=== PATIENT | male | born 1935 | race Caucasian/White ===

== ENCOUNTER 2018-06-07 04:59 | Observation (INO) | payer OTHER, BC ==
[2018-06-07 05:36] LABS: Absolute Lymphocytes (CBC) 1.8 K/uL (0.7-4.9); Absolute Monocytes 0.7 K/uL (0.1-1.3); Absolute Neutrophil 3.3 K/uL (1.8-8.0); Basophils % 0.8 % (0-1.3); Eosinophils % 5.9 % (0-4.4); Hematocrit 50.6 % (39.6-49.0); Lymphocytes % 29.6 % (15.3-44.8); MCH 32.1 pg (27.0-35.0); MPV 8.1 fL (7.6-11.3); Monocytes % 10.7 % (3.3-12.3); RBC Red Blood Cell Count 5.38 M/uL (4.33-5.43)
[2018-06-07 05:39] LABS: Protime INR 1.05
[2018-06-07 05:51] LABS: ALT/SGPT 31 U/L (12-78); AST/SGOT 36 U/L (15-37); Albumin 3.8 g/dL (3.4-5.0); Alkaline Phosphatase 63 U/L (45-117); BUN Blood Urea Nitrogen 18 mg/dL (7-18); Bicarbonate 29 mmol/L (21-32); Bilirubin Total 0.8 mg/dL (0.2-1.0); Glucose Level 102 mg/dL (74-106); Magnesium 2.1 mg/dL (1.8-2.4); NT PRO-BNP 174 pg/mL (<450); Potassium 3.6 mmol/L (3.5-5.1); Sodium Level 142 mmol/L (136-145); Troponin (Emerg Dept Use Only) < 0.02 ng/mL (0.0-0.045)
[2018-06-07] MEDS ORDERED: MORPHINE 4 MG/ML SYR ONE (05:54)
[2018-06-07] MEDS ORDERED: ONDANSETRON 4 MG/2 ML VIAL ONE (05:54)
--- NOTE | 2018-06-07 07:02 | EDPHYS ---
Physician Documentation [facility] Name: Angelo Gonzalez Age: 83 yrs Sex: Male : 1935 Arrival Date: 06/07/2018 Time: 04:59 Bed 18 Private MD: NALLLEY CEDENO ED Physician Chinedu Villavicencio HPI: 06/07 05:08 This 83 yrs old Male presents to ER via Unassigned with complaints of Chest ps1 Pain. 05:08 The patient or guardian reports chest pain that is located primarily in the substernal ps1 area. Onset: just prior to arrival. The pain does not radiate. Associated signs and symptoms: The patient has no apparent associated signs or symptoms. The chest pain is described as a pressure. Hx of aortic aneurysm. Supposed to have CTA in morning. [place] is cards. Pain moderate. No remitting factors. . Historical: - Allergies: 05:32 PENICILLINS; jb4 - Home Meds: 05:32 [place] Thyroid 90 mg Oral tab 90 mg daily for Hypothyroidism [Active]; Bactrim DS Oral jb4 [Active]; curamin bcm 95 twice a day [Active]; Flomax 0.4 mg Oral cp24 1 cap once daily [Active]; Nexium 40 mg Oral cpDR 1 cap once daily for Gastroesophageal reflux [Active]; testosterone every 2 weeks every two weeks [Active]; Q10 daily [Active]; [place] Thyroid 15 mg Oral tab [Active]; bisoprolol-hydrochlorothiazide 2.5-6.25 mg oral tab 1 tab once daily [Active]; Tamslosin Hcl [Active]; cyclobenzaprine 10 mg Oral tab [Active]; turmeic 750 [Active]; red yeast rice 600 mg oral cap twice a day [Active]; - PMHx: 05:32 aortic aneurysm; Arthritis; BPH; Cancer; bladder; Hypertension; Hypothyroidism; jb4 - PSHx: 05:32 Tonsillectomy; Hernia repair; jb4 - Immunization history:: Adult Immunizations up to date, Flu vaccine is not up to date. - Social history:: Smoking status: Patient/guardian denies using tobacco, Patient uses alcohol, but reports only rare drinking. - Ebola Screening: : No symptoms or risks identified at this time. ROS: 05:08 Constitutional: Negative for fever, chills, and weight loss, Eyes: Negative for injury, ps1 pain, redness, and discharge, Respiratory: Negative for shortness of breath, cough, wheezing, and pleuritic chest pain, Abdomen/GI: Negative for abdominal pain, nausea, vomiting, diarrhea, and constipation, MS/Extremity: Negative for injury and deformity, Skin: Negative for injury, rash, and discoloration, Neuro: Negative for headache, weakness, numbness, tingling, and seizure. 05:08 Cardiovascular: Positive for chest pain. Exam: 05:08 Constitutional: This is a well developed, well nourished patient who is awake, alert, ps1 and in no acute distress. Head/Face: Normocephalic, atraumatic. Eyes: Pupils equal round and reactive to light, extra-ocular motions intact. Lids and lashes normal. Conjunctiva and sclera are non-icteric and not injected. Chest/axilla: Normal chest wall appearance and motion. Nontender with no deformity. No lesions are appreciated. Cardiovascular: Regular rate and rhythm. No gallops, murmurs, or rubs. Normal PMI, no JVD. No pulse deficits. Respiratory: Lungs have equal breath sounds bilaterally, clear to auscultation and percussion. No rales, rhonchi or wheezes noted. No increased work of breathing, no retractions or nasal flaring. Abdomen/GI: Soft, non-tender, with normal bowel sounds. No distension or tympany. No guarding or rebound. No evidence of tenderness throughout. Skin: Warm, dry with normal turgor. Normal color with no rashes, no lesions, and no evidence of cellulitis. MS/ Extremity: Pulses equal, no cyanosis. Neurovascular intact. Full, normal range of motion. Neuro: Awake and alert, GCS 15, oriented to person, place, time, and situation. Cranial nerves II-XII grossly intact. Sensory grossly intact. Vital Signs: 05:05 BP 159 / 81; Pulse 101; Resp 18; Temp 98.0; Pulse Ox 95% on R/A; Weight 77.11 kg; jb4 Height 5 ft. 6 in. (167.64 cm); Pain 5/10; 06:00 BP 140 / 85; Pulse 87; Resp 18; Pulse Ox 95% on R/A; jb4 06:36 BP 157 / 76; Pulse 92; Resp 16; Pulse Ox 98% on R/A; jb4 07:10 BP 144 / 84; Pulse 89; Resp 18; Pulse Ox 96% on R/A; hj 08:30 BP 145 / 66; Pulse 84; Resp 18; Pulse Ox 96% on R/A; hj 09:26 BP 137 / 98; Pulse 86; Resp 18; Pulse Ox 97% on R/A; hj 05:05 Body Mass Index 27.44 (77.11 kg, 167.64 cm) jb4 MDM: 05:11 Patient medically screened. ps1 07:02 Data reviewed: vital signs, nurses notes, lab test result(s), EKG, radiologic studies, ps1 and as a result, I will admit patient. 06/07 05:11 Order name: CBC with Diff; Complete Time: 05:45 ps1 06/07 05:11 Order name: Magnesium; Complete Time: 05:54 ps1 06/07 05:11 Order name: NT PRO-BNP; Complete Time: 05:54 ps1 06/07 05:11 Order name: PT-INR; Complete Time: 05:45 ps1 06/07 05:11 Order name: Troponin (emerg Dept Use Only); Complete Time: 05:54 ps1 06/07 05:11 Order name: CMP; Complete Time: 05:54 ps1 06/07 05:11 Order name: EKG; Complete Time: 05:11 ps1 06/07 05:11 Order name: Cardiac monitoring; Complete Time: 05:24 ps1 06/07 05:11 Order name: EKG - Nurse/Tech; Complete Time: 05:16 ps1 06/07 05:11 Order name: IV Saline Lock; Complete Time: 05:24 ps1 06/07 05:11 Order name: Labs collected and sent; Complete Time: 05:24 ps1 06/07 05:11 Order name: CT Aorta for Dissection ps1 06/07 05:11 Order name: O2 Per Protocol; Complete Time: 05:24 ps1 06/07 05:11 Order name: O2 Sat Monitoring; Complete Time: 05:20 ps1 EC:03 Rate is 97 beats/min. Rhythm is regular. QRS [place] is Normal. ND interval is normal. QRS ps1 interval is normal. QT interval is normal. No Q waves. No ST changes noted. Clinical impression: IVCD, LVH,repol. LAFB. Interpreted by me. Administered Medications: 05:58 Drug: Zofran 4 mg Route: IVP; Site: right forearm; jb4 06:37 Follow up: Response: No adverse reaction; Nausea is decreased jb4 06:01 Drug: morphine 4 mg Route: IVP; Site: right forearm; jb4 06:37 Follow up: Response: No adverse reaction; Pain is decreased jb4 Disposition: 06/07/18 07:01 Hospitalization ordered by Laurita Flores for Observation. Preliminary diagnosis is Other chest pain. - Bed requested for Telemetry/MedSurg (observation). - Status is Observation. hj - Condition is Stable. - Problem is new. - Symptoms have improved. UTI on Admission? No Signatures: Dispatcher [employer] EDMS Jomar Kam RN RN hj Eliceo Grajeda RN RN jb4 Chinedu Villavicencio MD MD ps1 Reyna Escalera Corrections: (The following items were deleted from the chart) 09:04 07:01 Hospitalization Ordered by Laurita Flores MD for Observation. Preliminary eb diagnosis is Other chest pain. Bed requested for Telemetry/MedSurg (observation). Status is Observation. Condition is Stable. Problem is new. Symptoms have improved. UTI on Admission? No. ps1 09:27 09:04 06/07/2018 07:01 Hospitalization Ordered by Laurita Flores MD for Observation. hj Preliminary diagnosis is Other chest pain. Bed requested for Telemetry/MedSurg (observation). Status is Observation. Condition is Stable. Problem is new. Symptoms have improved. UTI on Admission? No. eb
--- NOTE | 2018-06-07 07:02 | ER ---
Nurse's Notes [facility] Name: Angelo Gonzalez Age: 83 yrs Sex: Male : 1935 Arrival Date: 06/07/2018 Time: 04:59 Bed 18 Private MD: NALLELY CEDENO Diagnosis: Other chest pain Presentation: 06/07 05:05 Presenting complaint: Patient states: I am having chest pain in the middle of my chest jb4 that started around midnight. 05:05 Transition of care: patient was not received from another setting of care. Onset of jb4 symptoms was June 07, 2018. Risk Assessment: Do you want to hurt yourself or someone else? Patient reports no desire to harm self or others. Initial Sepsis Screen: Does the patient meet any 2 criteria? HR > 90 bpm. Yes Does the patient have a suspected source of infection? No. Patient's initial sepsis screen is negative. Care prior to arrival: None. 05:05 Method Of Arrival: Ambulatory jb4 05:05 Acuity: ARMIDA 3 jb4 Triage Assessment: 05:32 General: Appears in no apparent distress. uncomfortable, Behavior is calm, cooperative, jb4 appropriate for age. Pain: Complains of pain in xyphoid area Pain does not radiate. Pain currently is 5 out of 10 on a pain scale. Quality of pain is described as it just hurts. Pain began 4 hours ago. Is continuous. EENT: No signs and/or symptoms were reported regarding the EENT system. Neuro: Level of Consciousness is awake, alert, obeys commands, Oriented to person, place, time, situation. Cardiovascular: Reports chest pain, Heart tones S1 S2 present Patient's skin is warm and dry. Rhythm is sinus rhythm. Respiratory: Airway is patent Respiratory effort is even, unlabored, Respiratory pattern is regular, symmetrical, Breath sounds are clear bilaterally. GI: No signs and/or symptoms were reported involving the gastrointestinal system. : No signs and/or symptoms were reported regarding the genitourinary system. Derm: Skin is intact, Skin is pink, warm \T\ dry. Musculoskeletal: Circulation, motion, and sensation intact. Historical: - Allergies: 05:32 PENICILLINS; jb4 - Home Meds: 05:32 [place] Thyroid 90 mg Oral tab 90 mg daily for Hypothyroidism [Active]; Bactrim DS Oral jb4 [Active]; curamin bcm 95 twice a day [Active]; Flomax 0.4 mg Oral cp24 1 cap once daily [Active]; Nexium 40 mg Oral cpDR 1 cap once daily for Gastroesophageal reflux [Active]; testosterone every 2 weeks every two weeks [Active]; Q10 daily [Active]; [place] Thyroid 15 mg Oral tab [Active]; bisoprolol-hydrochlorothiazide 2.5-6.25 mg oral tab 1 tab once daily [Active]; Tamslosin Hcl [Active]; cyclobenzaprine 10 mg Oral tab [Active]; turmeic 750 [Active]; red yeast rice 600 mg oral cap twice a day [Active]; - PMHx: 05:32 aortic aneurysm; Arthritis; BPH; Cancer; bladder; Hypertension; Hypothyroidism; jb4 - PSHx: 05:32 Tonsillectomy; Hernia repair; jb4 - Immunization history:: Adult Immunizations up to date, Flu vaccine is not up to date. - Social history:: Smoking status: Patient/guardian denies using tobacco, Patient uses alcohol, but reports only rare drinking. - Ebola Screening: : No symptoms or risks identified at this time. Screenin:05 Abuse screen: Denies threats or abuse. Nutritional screening: No deficits noted. jb4 Tuberculosis screening: No symptoms or risk factors identified. Fall Risk None identified. Assessment: 05:05 General: see triage assessment. jb4 06:11 Reassessment: Patient appears in no apparent distress at this time. Patient and/or jb4 family updated on plan of care and expected duration. Pain level reassessed. Patient is alert, oriented x 3, equal unlabored respirations, skin warm/dry/pink. Pt being taken to CT via stretcher. Patient states feeling better. 06:36 Reassessment: Patient appears in no apparent distress at this time. Patient and/or jb4 family updated on plan of care and expected duration. Pain level reassessed. Patient is alert, oriented x 3, equal unlabored respirations, skin warm/dry/pink. Pt is back from CT, family is at the bedside. 07:12 General: Appears in no apparent distress. uncomfortable, Behavior is calm, cooperative, hj appropriate for age. Pain: Complains of pain in chest and xyphoid area Pain currently is 4 out of 10 on a pain scale. Neuro: Level of Consciousness is awake, alert, obeys commands, Oriented to person, place, time, situation, Appropriate for age. Cardiovascular: Capillary refill < 3 seconds Patient's skin is warm and dry. Respiratory: Airway is patent Respiratory effort is even, unlabored, Respiratory pattern is regular, symmetrical. GI: No signs and/or symptoms were reported involving the gastrointestinal system. : No signs and/or symptoms were reported regarding the genitourinary system. EENT: No signs and/or symptoms were reported regarding the EENT system. Derm: No signs and/or symptoms reported regarding the dermatologic system. Musculoskeletal: No signs and/or symptoms reported regarding the musculoskeletal system. 08:30 Reassessment: Patient and/or family updated on plan of care and expected duration. Pain hj level reassessed. Patient is alert, oriented x 3, equal unlabored respirations, skin warm/dry/pink. awaiting room placemnt;. 09:25 Reassessment: Patient and/or family updated on plan of care and expected duration. Pain hj level reassessed. Patient is alert, oriented x 3, equal unlabored respirations, skin warm/dry/pink. room assigned to [facility]; report called to Antoinette WEEMS;. Vital Signs: 05:05 BP 159 / 81; Pulse 101; Resp 18; Temp 98.0; Pulse Ox 95% on R/A; Weight 77.11 kg; jb4 Height 5 ft. 6 in. (167.64 cm); Pain 5/10; 06:00 BP 140 / 85; Pulse 87; Resp 18; Pulse Ox 95% on R/A; jb4 06:36 BP 157 / 76; Pulse 92; Resp 16; Pulse Ox 98% on R/A; jb4 07:10 BP 144 / 84; Pulse 89; Resp 18; Pulse Ox 96% on R/A; hj 08:30 BP 145 / 66; Pulse 84; Resp 18; Pulse Ox 96% on R/A; hj 09:26 BP 137 / 98; Pulse 86; Resp 18; Pulse Ox 97% on R/A; hj 05:05 Body Mass Index 27.44 (77.11 kg, 167.64 cm) jb4 ED Course: 04:59 Patient arrived in ED. am2 05:02 NALLELY CEDENO is Private Physician. am2 05:05 Arm band placed on right wrist. jb4 05:05 Patient has correct armband on for positive identification. Placed in gown. Bed in low jb4 position. Call light in reach. Side rails up X 1. hotel receptionist on. Pulse ox on. NIBP on. 05:08 Chinedu Villavicencio MD is Attending Physician. ps1 05:10 Initial lab(s) drawn, by nc, sent to lab. Inserted saline lock: 20 gauge in right jb4 antecubital area, using aseptic technique. Blood collected. Patient maintains SpO2 saturation greater than 95% on room air. 05:16 EKG done, by ED staff, reviewed by Chinedu Villavicencio MD. bb 05:20 Eliceo Grajeda, RN is Primary Nurse. jb4 05:27 Triage completed. jb4 05:30 Inserted saline lock: 20 gauge in right forearm, using aseptic technique. jb4 05:40 Inserted saline lock: 20 gauge in right forearm, using aseptic technique. jb4 06:05 Inserted saline lock: 20 gauge in left antecubital area, using aseptic technique. jb4 06:40 CT Aorta for Dissection In Process Unspecified. EDMS 06:40 CT completed. Patient tolerated procedure well. Patient moved to CT via stretcher. Patient moved back from CT. 07:01 Laurita Flores MD is Hospitalizing Provider. ps1 07:09 Report received from Eliceo Grajeda RN. hj 09:26 No provider procedures requiring assistance completed. Patient admitted, IV remains in place. intact. Administered Medications: 05:58 Drug: Zofran 4 mg Route: IVP; Site: right forearm; jb4 06:37 Follow up: Response: No adverse reaction; Nausea is decreased jb4 06:01 Drug: morphine 4 mg Route: IVP; Site: right forearm; jb4 06:37 Follow up: Response: No adverse reaction; Pain is decreased jb4 Outcome: 07:01 Decision to Hospitalize by Provider. ps1 09:27 Admitted to Tele accompanied by tech, family with patient, via wheelchair, room 413, with chart, Report called to DANK Curry 09:27 Condition: stable 09:27 Instructed on the need for admit, Demonstrated understanding of instructions. 09:27 Patient left the ED. Signatures: Dispatcher [employer] EDMN Luis De Souza Laly Staples RN RN Jomar Kam RN RN hj Bryson, James, RN RN jb4 Karo Guidry am2 Chinedu Villavicencio MD MD ps1
--- NOTE | 2018-06-07 07:51 | EKG ---
Test Date: 2018-06-07 Test Time: 05:03:04 Stencil Machine Operator: PANTERA MEASUREMENT RESULTS: Intervals: Rate: 97 NV: 176 QRSD: 116 QT: 356 QTc: 452 [place]: P: 77 NV: 176 QRS: -65 T: 88 INTERPRETIVE STATEMENTS: Normal sinus rhythm Left anterior fascicular block Left ventricular hypertrophy with QRS widening and repolarization abnormality Abnormal ECG Compared to ECG 10/07/2016 01:11:37 no significant change from previous ECG Electronically Signed On 06-07-18 07:50:49 CDT by Javi Marin
[2018-06-07] MEDS ORDERED: ONDANSETRON 4 MG/2 ML VIAL IV PRN (08:18)
--- NOTE | 2018-06-07 08:25 | RAD REPORT ---
EXAM DESCRIPTION: CT - Angio Aorta For Dissection - 06/07/2018 6:59 am CLINICAL HISTORY: Chest pain radiating to the back. hx of aortic aneurysm and chest pain COMPARISON: Angio Aorta For Dissection dated 10/07/2016; Angio Aorta For Dissection dated 12/06/2015 ; CTANGIO AORTA FOR DISSECTION dated 11/19/2011 TECHNIQUE: CT angiography of the aorta was performed with MIPs. All CT scans are performed using dose optimization technique as appropriate and may include automated exposure control or mA/KV adjustment according to patient size. FINDINGS: Large left thyroid lobe nodule is present measuring up to 4.0 cm. A left aortic arch is present with normal branching pattern of the great vessels.Aneurysmal dilatatio n of the ascending aorta measuring 4.5 cm is again noted, unchanged. No dissection is seen. No penetr ating ulcer or periaortic abnormality. The celiac axis, SMA, DHEERAJ and renal arteries are widely patent . No evidence of pulmonary embolism. The lungs are clear. Small hiatal hernia. The liver demonstrates no focal mass or biliary dilatation.Several liver cysts are present.The spleen , pancreas, adrenal glands and kidneys are within normal limits for arterial phase imaging. No bowel obstruction, free fluid or abscess.Sigmoid diverticulosis coli without diverticulitis.No pat hologic enlarged lymphadenopathy identified.Small fat containing inguinal hernias bilaterally. No fracture or worrisome bone lesion seen. IMPRESSION: 4.5 cm ascending aneurysm the thoracic aorta is stable.No acute aortic finding or other acute abnormality detected.
[2018-06-07] MEDS ORDERED: NA CHLORIDE 0.9% 1,000 ML IV SCH (09:00)
[2018-06-07 10:11] VITALS: BMI 27.4
[2018-06-07] MEDS ORDERED: INFLUENZA VACCINE (for 3y+) 0.5 ML DOSE IMVAC ONE (11:00)
[2018-06-07 12:12] LABS: Urine Appearance CLEAR; Urine Bilirubin NEGATIVE (NEG); Urine Blood NEGATIVE (NEG); Urine Color YELLOW; Urine Glucose NEGATIVE (NEG); Urine Protein NEGATIVE (NEG); Urine Specific Gravity >=1.030 (1.005-1.030); Urine pH 6.5 (5.0-7.0)
[2018-06-07 12:18] LABS: Urine Microscopic Reflex NO UMIC
--- NOTE | 2018-06-07 12:20 | ECHO ---
HEIGHT: 5 ft 6 in WEIGHT: 170 lb 0 oz DATE OF STUDY: 06/07/[address]: Laurita Flores MD 2-DIMENSIONAL: YES M.MODE: YES DOPPLER: YES COLOR FLOW: YES TDS: PORTABLE: DEFINITY: BUBBLE STUDY: DIAGNOSIS: CHEST PAIN CARDIAC HISTORY: CATHERIZATION: NO SURGERY: NO PROSTHETIC VALVE: NO PACEMAKER: NO MEASUREMENTS (cm) DIASTOLIC (NORMALS) SYSTOLIC (NORMALS) IVSd 0.9 (0.6-1.2) LA Diam 3.5 (1.9-4.0) LVEF 58% LVIDd 4.2 (3.5-5.7) LVIDs 3.0 (2.0-3.5) %FS 30% LVPWd 1.0 (0.6-1.2) Ao Diam 3.1 (2.0-3.7) 2 DIMENSIONAL ASSESSMENT: RIGHT ATRIUM: NORMAL LEFT ATRIUM: NORMAL RIGHT VENTRICLE: NORMAL LEFT VENTRICLE: NORMAL TRICUSPID VALVE: NORMAL MITRAL VALVE: NORMAL PULMONIC VALVE: NORMAL AORTIC VALVE: NORMAL PERICARDIAL EFFUSION: NONE AORTIC ROOT: NORMAL LEFT VENTRICULAR WALL MOTION: NORMAL DOPPLER/COLOR FLOW: MILD AORTIC, MITRAL AND TRICUSPID REGURGITATION. NORMAL RIGHT VENTRICULAR SYSTOLIC PRESSURE. COMMENTS: NORMAL 2-DIMENSIONAL ECHOCARDIOGRAM. MILD MITRAL, AORTIC AND TRICUSPID REGURGITATION. TECHNOLOGIST: LOIS GLORIA
[2018-06-07] MEDS ORDERED: PANTOPRAZOLE 40MG TABLET PO ONE (12:46)
[2018-06-07] MEDS ORDERED: SUCRALFATE 1GM/10ML UCUP FT SCH (13:00)
[2018-06-07 14:29] VITALS: BP 134/73; TEMP 98.3
--- NOTE | 2018-06-07 17:45 | P.SSS ---
Patient History Date of Service: 06/07/18 Primary Care Provider: Dr Davila Reason for admission: Chest pain History of Present Illness: 83 y/o M with extensive pmhx presented to the ED with Chest pain that started 3 AM last night. Pain was in the middle of left chest pain. Pain is Dull in nature and rated to be 8/10. Denies having SOB, N,V and chills at this time. No other complains to offer at this time. Has scheduled a tooth extraction surgery malissa AM with Dr Barton. In the ER EKG with sinus rhythm and Troponin x 2 negative. ACS r.o. Admitted for ECHO and cards consult. Allergies Penicillins Allergy (Mild, Verified 06/07/18 09:48) Hives/Rash Home Medications: Bisoprolol/Hctz [[place] 2.5/6.25*] 1 tab PO DAILY WITH BREAKFAST 06/03/14 Thyroid,Pork [[place] Thyroid] 15 mg PO DAILY 06/03/14 Tamsulosin HCl [Flomax] 0.4 mg PO BEDTIME 12/06/15 Selenium 100 mcg PO DAILYPRN PRN 02/03/17 Testosterone Cypionate [Depo-Testosterone] 100 mg IM ONCE 02/03/17 Turmeric/Turmeric Ext/Pepr Ext [Turmeric Complex 500 mg Cap] 1 each PO DAILY Cyclobenzaprine [Flexeril*] 1 tab PO BEDTIME 06/07/18 Esomeprazole Mag Trihydrate [Nexium] 1 tab PO DAILY 06/07/18 Thyroid Tab [[place] Thyroid*] 90 mg PO DAILY 06/07/18 - Past Medical/Surgical History Has patient received pneumonia vaccine in the past: Yes Diabetic: No -: aortic aneurysm -: tinnitus -: HTN -: BPH -: hypothyroidsm -: bladder CA -: arthritis -: hemmrhoidectomy -: bladder cancer tumor removal -: sabra cataract sx -: tonisllectomy - Family History Family History: Reviewed- Non-Contributory - Family History Father -: Heart disease, Hypertension Notes: thyroid problems Mother -: Heart disease, Hypertension Brother -: Heart disease, Hypertension Sister -: Heart disease, Hypertension - Social History Smoking Status: Former smoker Alcohol use: Yes CD- Drugs: No Caffeine use: Yes Place of Residence: Home Review of Systems 10-point ROS is otherwise unremarkable Physical Examination - Vital Signs Temperature: 98.3 F Blood Pressure: 134/73 Pulse: 79 Respirations: 18 Pulse Ox (%): 95 - Physical Exam General: Alert, In no apparent distress HEENT: Atraumatic, PERRLA, Mucous membr. moist/pink, EOMI, Sclerae nonicteric Neck: Supple, 2+ carotid pulse no bruit, No LAD, Without JVD or thyroid abnormality Respiratory: Clear to auscultation bilaterally, Normal air movement Cardiovascular: Regular rate/rhythm, Normal S1 S2 Gastrointestinal: Normal bowel sounds, No tenderness Musculoskeletal: No tenderness Integumentary: No rashes Neurological: Normal gait, Normal speech, Normal strength at 5/5 x4 extr, Normal tone, Normal affect Lymphatics: No axilla or inguinal lymphadenopathy - Studies Laboratory Data (last 24 hrs) 06/07/18 05:10: PT 12.4, INR 1.05 06/07/18 05:10: WBC 6.2, Hgb 17.3, Hct 50.6 H, Plt Count 182 06/07/18 05:10: Sodium 142, Potassium 3.6, BUN 18, Creatinine 1.40 H, Glucose 102, Magnesium 2.1, Total Bilirubin 0.8, AST 36, ALT 31, Alkaline Phosphatase 63 - Diagnosis (Problem(s)) (1) Chest pain, rule out acute myocardial infarction Current Visit: Yes Status: Acute Plan: Atypical Chest pain, Most likely 2.2 to Anxiety vs GERD -ECHO negative for acute abnormality -Cardiology consulted. -No Further Workup needed -Continue all home medication -Discharge Now -Chest pain resolved (2) HTN (hypertension) Current Visit: Yes Status: Chronic Plan: Stable Qualifiers: Hypertension type: essential hypertension Qualified Code(s): I10 - Essential (primary) hypertension (3) Hypothyroidism Current Visit: Yes Status: Chronic Plan: Stable Qualifiers: Hypothyroidism type: acquired Qualified Code(s): E03.9 - Hypothyroidism, unspecified (4) Aortic aneurysm Current Visit: Yes Status: Chronic Plan: Stable Qualifiers: Aortic location: unspecified Presence of rupture: without rupture Qualified Code(s): I71.9 - Aortic aneurysm of unspecified site, without rupture (5) Arthritis Current Visit: Yes Status: Chronic - Disposition Disposition: ROUTINE DISCHARGE Condition: GOOD Diet: Regular Activity: Ad rina
--- NOTE | 2018-06-07 17:49 | CON ---
Brief History: Mr. Gonzalez had a heart catheterization years ago. It showed normal coronary arteri es, mild dilation of the ascending aorta. Ever since then, he has gotten serial stress tests and ser ial CT scans. His most recent CT scan was yesterday. The ascending aorta size is 4.5 mm, no evidenc e of dissection. It is no different than it has been and is not likely to be the cause of his pain. His stress test was on June 01, 2018, it was a nuclear stress test, he had normal myocardial perf usion, and normal ejection fraction. He had an echocardiogram done today that likewise shows no sign ificant abnormality. His troponins are normal. His EKG is unchanged from all his previous EKGs, whi ch shows borderline voltage for LVH, with QRS widening, nonspecific repolarization abnormality. The pain started at 3 a.m., it has been constant, it is not waxing and waning and with all of that, there is no EKG change, and no abnormality of troponin. 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 He has hypothyroidism. Medications: As an outpatient, he uses [place] Thyroid, bisoprolol, hydrochlorothiazide, Flomax, test osterone, Selenium, turmeric, cyclobenzaprine, and Nexium. Physical Examination: Vital Signs: He is 5 feet 6 inches, 170 pounds. Blood pressure 142/76, pulse 88, temperature 98, O2 saturation 97% on room air. HEENT: Normal. Does not appear to be in any distress. Lungs: Clear. Cardiac: Within normal limits. No friction rub. Abdomen: Soft. Extremities: Normal. Ekg: LVH, QRS widening, not a left bundle. Impression: The patient is probably having symptoms of gastroesophageal reflux disease. Recently, prabhjot oliveros has taken some Flexeril and may not have been taken his Nexium recently, so I am going to ask us no t to repeat a stress test. If his enzymes become abnormal, we will do a heart catheterization. If t hey stay normal, we will just rely on the stress test from 5 days ago. Mr. Gonzalez probably is not having an acute coronary syndrome or any symptoms from his aorta. Those 2 problems seem to be stable . KWABENA/LEANN Voice ID: [id number] Report ID: [id number]
[2018-06-07 20:07] VITALS: O2SAT 96
== END 2018-06-07 17:29 | disposition home or self-care (01) ==
LOC: ER 04:59 → ERHOLD 07:48 → 4TH 09:16
PROVIDERS: ADMIT Family Medicine; ATTEND Family Medicine
DX: R07.89 Other chest pain (principal); I10 Essential (primary) hypertension; N40.0 Benign prostatic hyperplasia without lower urinary tract symptoms; E03.9 Hypothyroidism, unspecified; I71.9 Aortic aneurysm of unspecified site, without rupture; M19.90 Unspecified osteoarthritis, unspecified site; Z85.51 Personal history of malignant neoplasm of bladder; Z87.891 Personal history of nicotine dependence; Z88.0 Allergy status to penicillin; Z23 Encounter for immunization
CPT/HCPCS: 36415; 71275; 74175; 80053; 81003; 83735; 83880; 84484 ×3; 85025; 85610; 87086; 87088; 93005; 93306; 96374; 96375; 99285; G0008; G0378 ×2; J2405; J7030; Q2035; Q9967

== ENCOUNTER 2018-07-30 15:18 | Emergency (ER) | payer OTHER, BC ==
--- NOTE | 2018-07-30 16:36 | RAD REPORT ---
EXAM DESCRIPTION: CT - Head Brain Wo Cont - 07/30/2018 4:18 pm CLINICAL HISTORY: Facial swelling, hypertension, headache COMPARISON: November 2015 CT head TECHNIQUE: Axial 5 mm thick images of the head were obtained without IV contrast. All CT scans are performed using dose optimization technique as appropriate and may include automated exposure control or mA/KV adjustment according to patient size. FINDINGS: No intracranial hemorrhage, mass, edema or shift of mid-line structures. No acute infarcti on changes seen. Moderate atrophy and chronic ischemic changes are present similar to the comparison. Ventricles are in proportion. Arterial and physiologic calcifications are present. Mastoid air cells and visualized portions of the paranasal sinuses are clear. No acute bony findings. IMPRESSION: Moderate atrophy and chronic ischemic change similar to comparison. No acute finding.
--- NOTE | 2018-07-30 16:39 | RAD REPORT ---
EXAM DESCRIPTION: CT - Thorax Wo Con - 07/30/2018 4:18 pm CLINICAL HISTORY: Cough, shortness of breath COMPARISON: CT chest August 2015 TECHNIQUE: Axial 5 mm thick images of the chest were obtained without IV contrast. All CT scans are performed using dose optimization technique as appropriate and may include automated exposure control or mA/KV adjustment according to patient size. FINDINGS: No mass or consolidation. Fibrotic lung changes are present. Pattern is not substantially different from the comparison study. No pleural thickening or pleural effusion. No pneumothorax. No abnormal mediastinal or hilar masses or lymphadenopathy seen. No gross aortic or pulmonary artery finding suspected. No endobronchial lesions seen. No pericardial thickening or effusion. No chest wall mass or abnormal axillary lymphadenopathy. Small hiatal hernia is present. IMPRESSION: Fibrotic lung changes are present. No acute chest finding. Chest findings are similar to 2016.
--- NOTE | 2018-07-30 16:48 | ER ---
Nurse's Notes [facility] Name: Angelo Gonzalez Age: 83 yrs Sex: Male : 1935 Arrival Date: 07/30/2018 Time: 15:19 Bed 27 Private MD: NALLELY CEDENO Diagnosis: Bronchitis, not specified as acute or chronic Presentation: 07/30 15:39 Presenting complaint: Patient states: PATIENT STATES: HE HAVE BRONCHITIS AND IS ALREADY rv ON ANTIBIOTICS FOR TEN DAYS. DOES NOT FEEL BETTER AND TODAY BLOOD PRESSURE IS FLUCTUATING. Transition of care: patient was not received from another setting of care. Onset of symptoms was July 30, 2018 at 08:00. Risk Assessment: Do you want to hurt yourself or someone else? Patient reports no desire to harm self or others. Initial Sepsis Screen: Does the patient meet any 2 criteria? No. Patient's initial sepsis screen is negative. Does the patient have a suspected source of infection? No. Patient's initial sepsis screen is negative. Care prior to arrival: None. 15:39 Method Of Arrival: Ambulatory rv 15:39 Acuity: ARMIDA 3 rv Historical: - Allergies: 15:44 PENICILLINS; rv - Home Meds: 15:44 [place] Thyroid 90 mg Oral tab 90 mg daily for Hypothyroidism [Active]; [place] Thyroid rv 15 mg Oral tab [Active]; Bactrim DS Oral [Active]; bisoprolol-hydrochlorothiazide 2.5-6.25 mg Oral tab 1 tab once daily [Active]; curamin bcm 95 twice a day [Active]; cyclobenzaprine 10 mg Oral tab [Active]; Flomax 0.4 mg Oral cp24 1 cap once daily [Active]; Nexium 40 mg Oral cpDR 1 cap once daily for Gastroesophageal reflux [Active]; Q10 daily [Active]; red yeast rice 600 mg Oral cap twice a day [Active]; Tamslosin Hcl [Active]; testosterone every 2 weeks every two weeks [Active]; turmeic 750 [Active]; levofloxacin 500 mg Oral tab [Active]; benzonatate oral oral [Active]; - PMHx: 15:44 aortic aneurysm; Arthritis; BPH; Cancer; bladder; Hypertension; Hypothyroidism; rv - PSHx: 15:44 None; rv - Immunization history:: Adult Immunizations up to date, Flu vaccine is up to date. - Social history:: Smoking status: Patient/guardian denies using tobacco. - Ebola Screening: : Patient negative for fever greater than or equal to 101.5 degrees Fahrenheit, and additional compatible Ebola Virus Disease symptoms Patient denies exposure to infectious person Patient denies travel to an Ebola-affected area in the 21 days before illness onset. Screenin:45 Abuse screen: Denies threats or abuse. Denies injuries from another. Nutritional rv screening: No deficits noted. Tuberculosis screening: No symptoms or risk factors identified. Fall Risk None identified. Assessment: 15:45 General: Appears in no apparent distress. comfortable, Behavior is calm, cooperative. rv Pain: Denies pain. Neuro: Level of Consciousness is awake, alert, obeys commands, Oriented to person, place, time, situation. Cardiovascular: Capillary refill < 3 seconds. Respiratory: Airway is patent. GI: No signs and/or symptoms were reported involving the gastrointestinal system. : No signs and/or symptoms were reported regarding the genitourinary system. EENT: No signs and/or symptoms were reported regarding the EENT system. Derm: Skin is intact. Musculoskeletal: No signs and/or symptoms reported regarding the musculoskeletal system. Vital Signs: 15:44 BP 162 / 93; Pulse 91; Resp 17; Temp 97.9; Pulse Ox 98% on R/A; Weight 77.11 kg (R); rv 17:14 BP 144 / 83; Pulse 73; Resp 17; Temp 97.1(O); Pulse Ox 98% on R/A; Pain 3/10; ed1 ED Course: 15:19 Patient arrived in ED. as 15:19 NALLELY CEDENO is Private Physician. as 15:39 Autumn Goodman [facility]-C [facility]. snw 15:39 Julio Cesar Sullivan MD is Attending Physician. snw 15:42 Triage completed. rv 15:46 Arm band placed on right wrist. rv 15:46 Patient has correct armband on for positive identification. Bed in low position. Call rv light in reach. Side rails up X 1. Adult w/ patient. Pulse ox on. NIBP on. 16:10 CT Chest Wo Con Sent. rv 16:10 CT Head Brain wo Cont Sent. rv 16:19 CT Head Brain wo Cont In Process Unspecified. EDMS 16:19 CT Chest Wo Con In Process Unspecified. EDMS 16:47 NALLELY CEDENO is Referral Physician. snw 17:13 No provider procedures requiring assistance completed. Patient did not have IV access ed1 during this emergency room visit. Administered Medications: 17:13 Drug: Tylenol #3 (300 mg-30 mg) 1 tablet Route: PO; ed1 17:13 Follow up: Response: Medication administered at discharge. ed1 Outcome: 16:47 Discharge ordered by MD. snw 17:13 Discharged to home ambulatory, with family. ed1 17:13 Condition: good 17:13 Discharge instructions given to patient, family, Instructed on discharge instructions, follow up and referral plans. medication usage, Demonstrated understanding of instructions, follow-up care, medications, Prescriptions given X 2. 17:14 Patient left the ED. ed1 Signatures: Dispatcher [employer] EDLA Autumn Goodman, FLEXO PRESS OPERATOR-C FLEXO PRESS OPERATOR-Lisa Orourke Erika, SEAFOOD TECHNOLOGY SPECIALIST SEAFOOD TECHNOLOGY SPECIALIST ed1 Geoff Howell, RN RN rv
--- NOTE | 2018-07-30 16:48 | EDPHYS ---
Physician Documentation [facility] Name: Angelo Gonzalez Age: 83 yrs Sex: Male : 1935 Arrival Date: 07/30/2018 Time: 15:19 Bed 27 Private MD: NALLELY CEDENO ED Physician Julio Cesar Sullivan HPI: 07/30 16:04 This 83 yrs old Male presents to ER via Ambulatory with complaints of High snw Blood Pressure. 16:04 The patient has elevated blood pressure and discovered this at home. Onset: The snw symptoms/episode began/occurred suddenly. Modifying factors: The symptoms are aggravated by cough, dx with Bronchitis. Has been taking Levaquin and Tessalon Perles. Severity of symptoms: At its worst the blood pressure was moderate. It is unknown whether or not the patient has had similar symptoms in the past. The patient has been recently seen by a physician: The patient has been recently seen at an urgent care, for continued cough with bronchitis. Historical: - Allergies: 15:44 PENICILLINS; rv - Home Meds: 15:44 [place] Thyroid 90 mg Oral tab 90 mg daily for Hypothyroidism [Active]; [place] Thyroid rv 15 mg Oral tab [Active]; Bactrim DS Oral [Active]; bisoprolol-hydrochlorothiazide 2.5-6.25 mg Oral tab 1 tab once daily [Active]; curamin bcm 95 twice a day [Active]; cyclobenzaprine 10 mg Oral tab [Active]; Flomax 0.4 mg Oral cp24 1 cap once daily [Active]; Nexium 40 mg Oral cpDR 1 cap once daily for Gastroesophageal reflux [Active]; Q10 daily [Active]; red yeast rice 600 mg Oral cap twice a day [Active]; Tamslosin Hcl [Active]; testosterone every 2 weeks every two weeks [Active]; turmeic 750 [Active]; levofloxacin 500 mg Oral tab [Active]; benzonatate oral oral [Active]; - PMHx: 15:44 aortic aneurysm; Arthritis; BPH; Cancer; bladder; Hypertension; Hypothyroidism; rv - PSHx: 15:44 None; rv - Immunization history:: Adult Immunizations up to date, Flu vaccine is up to date. - Social history:: Smoking status: Patient/guardian denies using tobacco. - Ebola Screening: : Patient negative for fever greater than or equal to 101.5 degrees Fahrenheit, and additional compatible Ebola Virus Disease symptoms Patient denies exposure to infectious person Patient denies travel to an Ebola-affected area in the 21 days before illness onset. ROS: 16:03 Constitutional: Negative for fever, chills, and weight loss, Eyes: Negative for injury, snw pain, redness, and discharge, ENT: Negative for injury, pain, and discharge, Neck: Negative for injury, pain, and swelling, Cardiovascular: Negative for chest pain, palpitations, and edema. 16:03 Abdomen/GI: Negative for abdominal pain, nausea, vomiting, diarrhea, and constipation, Back: Negative for injury and pain, : Negative for injury, bleeding, discharge, and swelling, MS/Extremity: Negative for injury and deformity, Neuro: Negative for headache, weakness, numbness, tingling, and seizure. 16:03 Respiratory: Positive for cough, with no reported sputum. 16:03 Skin: Positive for erythema, of the face. Exam: 16:03 Constitutional: The patient appears alert, awake, uncomfortable, facial erythema snw 16:52 Head/Face: Normocephalic, atraumatic. Eyes: Pupils equal round and reactive to light, snw extra-ocular motions intact. Lids and lashes normal. Conjunctiva and sclera are non-icteric and not injected. Cornea within normal limits. Periorbital areas with no swelling, redness, or edema. ENT: Nares patent. No nasal discharge, no septal abnormalities noted. Tympanic membranes are normal and external auditory canals are clear. Oropharynx with no redness, swelling, or masses, exudates, or evidence of obstruction, uvula midline. Mucous membranes moist. Neck: Trachea midline, no thyromegaly or masses palpated, and no cervical lymphadenopathy. Supple, full range of motion without nuchal rigidity, or vertebral point tenderness. No Meningismus. Chest/axilla: Normal chest wall appearance and motion. Nontender with no deformity. No lesions are appreciated. Cardiovascular: Regular rate and rhythm with a normal S1 and S2. No gallops, murmurs, or rubs. Normal PMI, no JVD. No pulse deficits. Abdomen/GI: Soft, non-tender, with normal bowel sounds. No distension or tympany. No guarding or rebound. No evidence of tenderness throughout. Back: No spinal tenderness. No costovertebral tenderness. Full range of motion. Skin: Warm, dry with normal turgor. Normal color with no rashes, no lesions, and no evidence of cellulitis. MS/ Extremity: Pulses equal, no cyanosis. Neurovascular intact. Full, normal range of motion. Neuro: Awake and alert, GCS 15, oriented to person, place, time, and situation. Cranial nerves II-XII grossly intact. Motor strength 5/5 in all extremities. Sensory grossly intact. Cerebellar exam normal. Normal gait. 16:52 Respiratory: the patient does not display signs of respiratory distress, Respirations: normal, Breath sounds: + upper airway congestion. harsh cough. Vital Signs: 15:44 BP 162 / 93; Pulse 91; Resp 17; Temp 97.9; Pulse Ox 98% on R/A; Weight 77.11 kg (R); rv 17:14 BP 144 / 83; Pulse 73; Resp 17; Temp 97.1(O); Pulse Ox 98% on R/A; Pain 3/10; ed1 MDM: 15:43 Patient medically screened. [facility] 16:49 Data reviewed: vital signs, nurses notes. Data interpreted: Pulse oximetry: on room air snw is 98 %. Interpretation: normal. Counseling: I had a detailed discussion with the patient and/or guardian regarding: the historical points, exam findings, and any diagnostic results supporting the discharge/admit diagnosis, the presence of at least one elevated blood pressure reading (>120/80) during this emergency department visit, radiology results, the need for outpatient follow up, to return to the emergency department if symptoms worsen or persist or if there are any questions or concerns that arise at home. Special discussion: I have referred the patient to see his PCP for further evaluation of high blood pressure. Based on the history and exam findings, there is no indication for further emergent testing or inpatient evaluation. I discussed with the patient/guardian the need to see the primary care provider for further evaluation of the symptoms. 07/30 15:55 Order name: CT Head Brain wo Cont; Complete Time: 16:45 snw 07/30 15:55 Order name: CT Chest Wo Con; Complete Time: 16:45 snw 07/30 15:55 Order name: EKG; Complete Time: 15:55 snw 07/30 15:55 Order name: EKG - Nurse/Tech; Complete Time: 16:09 snw Administered Medications: 17:13 Drug: Tylenol #3 (300 mg-30 mg) 1 tablet Route: PO; ed1 17:13 Follow up: Response: Medication administered at discharge. ed1 Disposition: 07/31 06:39 Co-signature as Attending Physician, Julio Cesar Sullivan MD I agree with the assessment and wyatt plan of care. Disposition: 07/30/18 16:47 Discharged to Home. Impression: Bronchitis, not specified as acute or chronic. - Condition is Stable. - Discharge Instructions: Acute Bronchitis, Adult, Fever, Adult, Hypertension, How to Use an Inhaler, Cool Mist Vaporizer. - Prescriptions for Albuterol Sulfate 90 mcg/actuation Inhalation - inhale 1-2 puff by INHALATION route every 6 hours; 1 Inhaler. Tylenol- Codeine #3 300-30 mg Oral Tablet - take 1 tablet by ORAL route every 6 hours As needed; 16 tablet. - Medication Reconciliation Form, Thank You Letter, Antibiotic Education, Prescription Opioid Use form. - Follow up: NALLELY CEDENO; When: as scheduled; Reason: Recheck today's complaints, Continuance of care, Re-evaluation by your physician. Follow up: Emergency Department; When: As needed; Reason: Worsening of condition. Signatures: Dispatcher [employer] EDMS Julio Cesar Sullivan MD MD cha Therrien, Shelly, WIRELESS ENGINEER-C WIRELESS ENGINEER-Casperw Meghann Hi, COLLISION ESTIMATOR COLLISION ESTIMATOR ed1 Geoff Howell, RN RN rv Corrections: (The following items were deleted from the chart) 07/30 17:14 16:47 07/30/2018 16:47 Discharged to Home. Impression: Bronchitis, not specified as ed1 acute or chronic. Condition is Stable. Forms are Medication Reconciliation Form, Thank You Letter, Antibiotic Education, Prescription Opioid Use. Follow up: NALLELY CEDENO; When: as scheduled; Reason: Recheck today's complaints, Continuance of care, Re-evaluation by your physician. Follow up: Emergency Department; When: As needed; Reason: Worsening of condition. snw
[2018-07-30] MEDS ORDERED: CODEINE 30MG/APAP 300MG TAB ONE (17:18)
[2018-07-30 18:55] VITALS: O2SAT 98
[2018-07-30 18:56] VITALS: BP 144/83; TEMP 97.1
--- NOTE | 2018-07-31 07:12 | EKG ---
Test Date: 2018-07-30 Test Time: 16:02:46 Director [place]: MEASUREMENT RESULTS: Intervals: Rate: 90 MI: 182 QRSD: 124 QT: 364 QTc: 445 [place]: P: 63 MI: 182 QRS: -66 T: 81 INTERPRETIVE STATEMENTS: Normal sinus rhythm Left anterior fascicular block Left ventricular hypertrophy with QRS widening and repolarization abnormality Possible Lateral infarct, age undetermined Abnormal ECG Compared to ECG 06/07/2018 05:03:04 Myocardial infarct finding now present Electronically Signed On 07-31-18 07:10:58 [employer] by Hollis Kuhn
== END 2018-07-30 17:14 | disposition home or self-care (01) ==
LOC: ER 15:18
DX: J40 Bronchitis, not specified as acute or chronic (principal); I10 Essential (primary) hypertension; E03.9 Hypothyroidism, unspecified; Z88.0 Allergy status to penicillin
CPT/HCPCS: 70450; 71250; 93005; 99284

== ENCOUNTER 2019-08-25 15:58 | Observation (INO) | payer OTHER, BC ==
[2019-08-25] MEDS ORDERED: NA CHLORIDE 0.9% 1,000 ML ONE (16:23)
[2019-08-25 16:32] LABS: Absolute Lymphocytes (CBC) 1.4 K/uL (0.7-4.9); Basophils % 0.5 % (0-1.3); Hematocrit 52.7 % (39.6-49.0); Lymphocytes % 17.6 % (15.3-44.8); MPV 7.9 fL (7.6-11.3); RBC Red Blood Cell Count 5.64 M/uL (4.33-5.43)
[2019-08-25 16:34] LABS: Protime INR 1.03
--- NOTE | 2019-08-25 16:47 | RAD REPORT ---
EXAM DESCRIPTION: RAD - Chest Single View - 08/25/2019 4:30 pm CLINICAL HISTORY: Cough, bradycardia COMPARISON: December 2018 TECHNIQUE: AP portable chest image was obtained 1627 hours . FINDINGS: Lung volumes are low. No peripheral mass or consolidation. Interstitial prominence matches comparison. Heart and vasculature are normal. No measurable pleural effusion and no pneumothorax. No acute bony abnormality seen. No acute aortic findings suspected. IMPRESSION: No acute cardiopulmonary process.
[2019-08-25] MEDS ORDERED: METHYLPREDNISOLONE 125 MG INJ ONE (16:56)
[2019-08-25 16:57] LABS: ALT/SGPT 30 U/L (12-78); AST/SGOT 19 U/L (15-37); Albumin 3.4 g/dL (3.4-5.0); Alkaline Phosphatase 74 U/L (45-117); BUN Blood Urea Nitrogen 15 mg/dL (7-18); Bicarbonate 31 mmol/L (21-32); Bilirubin Direct 0.2 mg/dL (0-0.2); Bilirubin Total 0.7 mg/dL (0.2-1.0); Glucose Level 100 mg/dL (74-106); Magnesium 2.3 mg/dL (1.8-2.4); NT PRO-BNP 224 pg/mL (<450); Potassium 3.8 mmol/L (3.5-5.1); Protein, Total 7.2 g/dL (6.4-8.2); Sodium Level 142 mmol/L (136-145); Thyroid Stimulating Hormone 0.383 uIU/mL (0.360-3.740); Troponin (Emerg Dept Use Only) < 0.02 ng/mL (0.0-0.045)
[2019-08-25] MEDS ORDERED: IPRATROPIUM BROM 0.5MG/2.5ML ONE (16:57)
[2019-08-25] MEDS ORDERED: LEVALBUTEROL 1.25 MG/3 ML NEB ONE (16:58)
[2019-08-25] MEDS ORDERED: CEFTRIAXONE/SWI 1gm 1 GM/10 ML SYR ONE (16:58)
--- NOTE | 2019-08-25 17:24 | ER ---
Nurse's Notes [facility] Name: Angelo Gonzalez Age: 84 yrs Sex: Male : 1935 Arrival Date: 08/25/2019 Time: 16:[address] Private MD: NALLELY CEDENO Diagnosis: Dyspnea;Palpitations;Tachycardia, unspecified;Weakness;Pulmonary fibrosis, unspecified Presentation: 08/25 16:18 Initial Sepsis Screen: Does the patient meet any 2 criteria? HR > 90 bpm. No. Patient's tw2 initial sepsis screen is negative. Does the patient have a suspected source of infection? No. Patient's initial sepsis screen is negative. 16:23 Presenting complaint: Patient states: SOB, palpitaions, "Not feeling right in my jl7 chest.", fatigue x 4 days. Transition of care: patient was not received from another setting of care. Onset of symptoms was August 22, 2019. Risk Assessment: Do you want to hurt yourself or someone else? Patient reports no desire to harm self or others. Care prior to arrival: None. 16:23 Method Of Arrival: Ambulatory 7 16:23 Acuity: ARMIDA 2 jl7 Historical: - Allergies: 16:27 PENICILLINS; jl7 - Home Meds: 16:27 [place] Thyroid 15 mg Oral tab [Active]; bisoprolol-hydrochlorothiazide 2.5-6.25 mg Oral jl7 tab 1 tab once daily [Active]; cyclobenzaprine 10 mg Oral tab [Active]; Flomax 0.4 mg Oral cp24 1 cap once daily [Active]; Nexium 40 mg Oral cpDR 1 cap once daily for Gastroesophageal reflux [Active]; red yeast rice 600 mg Oral cap twice a day [Active]; 16:35 [place] Thyroid 60 mg oral tab 2 tabs daily [Active]; testosterone buccal 200 mg/ml tw2 buccal 1 ml daily [Active]; esomeprazole magnesium 20 mg oral cpDR 1 cap once daily [Active]; Vitamin B-12 Oral [Active]; Vitamin B-6 Oral [Active]; vitamin D3-vitamin Y-wbdadtnvp-itxe oral oral [Active]; curamin bcm 95 twice a day [Active]; omega-3 fatty acids oral oral [Active]; - PMHx: 16:27 aortic aneurysm; Arthritis; Cancer; bladder; Hypertension; BPH; Hypothyroidism; jl7 - PSHx: 16:27 None; jl7 - Immunization history:: Adult Immunizations Adult Immunizations up to date. - Social history:: Smoking status: Smoking status: Patient/guardian denies using tobacco. - Ebola Screening: : Patient denies travel to an Ebola-affected area in the 21 days before illness onset No symptoms or risks identified at this time. - Family history:: not pertinent. Screenin:25 Abuse screen: Denies threats or abuse. Nutritional screening: No deficits noted. tw2 Tuberculosis screening: No symptoms or risk factors identified. Fall Risk Secondary diagnosis (15 points) impaired mobility. Assessment: 16:20 General: Appears in no apparent distress. Behavior is calm, cooperative, appropriate tw2 for age. Pain: Denies pain. Neuro: Level of Consciousness is awake, alert, obeys commands. Cardiovascular: Heart tones S1 S2 Patient's skin is warm and dry. Respiratory: Reports shortness of breath at rest on exertion cough that is non-productive, persistent Airway is patent Respiratory effort is even, unlabored, Respiratory pattern is regular, symmetrical, Breath sounds are clear bilaterally. GI: No signs and/or symptoms were reported involving the gastrointestinal system. Abdomen is flat, Bowel sounds present X 4 quads. : No signs and/or symptoms were reported regarding the genitourinary system. EENT: No signs and/or symptoms were reported regarding the EENT system. Derm: No signs and/or symptoms reported regarding the dermatologic system. Musculoskeletal: Range of motion: intact in all extremities. 16:26 Reassessment: X ray at bedside. ca1 16:31 Reassessment: Dr. Marin, optometrist owner, Dr. Cedeno, PCP. tw2 18:02 Reassessment: Patient appears in no apparent distress at this time. No changes from tw2 previously documented assessment. Patient and/or family updated on plan of care and expected duration. Pain level reassessed. Patient is alert, oriented x 3, equal unlabored respirations, skin warm/dry/pink. pt back from CT at this time, NAD. 19:16 Reassessment: Patient appears in no apparent distress at this time. Patient and/or aa1 family updated on plan of care and expected duration. Pain level reassessed. Patient is alert, oriented x 3, equal unlabored respirations, skin warm/dry/pink. Attempted to call report to 4th floor; Roula will call back. 20:25 Reassessment: Report called DANK Celeste. dm5 Vital Signs: 16:24 BP 137 / 92; Pulse 109; Resp 17; Pulse Ox 98% on R/A; tw2 16:27 Temp 98.6(O); ca1 16:47 BP 120 / 88; Pulse 138; Resp 20; Pulse Ox 97% on R/A; tw2 16:50 Pulse 102; tw2 17:56 BP 135 / 85; Pulse 99; Resp 17; Pulse Ox 99% on R/A; tw2 18:03 BP 142 / 88; Pulse 96; Resp 18; Pulse Ox 97% on R/A; tw2 18:27 BP 142 / 88; Pulse 84; Resp 20; Pulse Ox 96% on R/A; ca1 19:18 BP 129 / 83; Pulse 74; Resp 20; Temp 98.9; Pulse Ox 95% on R/A; Pain 0/10; aa1 16:47 provider notified. tw2 ED Course: 16:02 Patient arrived in ED. mr 16:02 NALLELY CEDENO is Private Physician. mr 16:15 Joy Bang RN is Primary Nurse. tw2 16:15 Julio Cesar Sullivan MD is Attending Physician. wyatt 16:18 EKG done, by ED staff, reviewed by Julio Cesar Sullivan MD. tw2 16:18 Placed in gown. Bed in low position. Adult w/ patient. cardiac cath lab radiology technologist on. Pulse ox on. tw2 NIBP on. 16:23 No provider procedures requiring assistance completed. Initial lab(s) drawn, by ED ca1 staff, sent to lab. Inserted saline lock: 20 gauge in right antecubital area, using aseptic technique. ,using aseptic technique. by DANK Hamilton Blood collected. 16:25 Triage completed. jl7 16:25 Arm band placed on. tw2 16:30 XRAY Chest (1 view) In Process Unspecified. EDMS 17:01 Second set of blood cultures drawn by pr. lt1 17:20 Candelaria Lee MD is Hospitalizing Provider. wyatt 17:44 CT completed. Patient tolerated procedure well. Patient moved back from CT. mw3 17:45 CT Chest For PE Angio In Process Unspecified. EDMS 18:57 Report given to DANK Jacques and DANK Gutierrez - urine outstanding at this time. tw2 19:00 Urine collected: clean catch specimen. aa1 19:18 Patient admitted, IV remains in place. aa1 Administered Medications: 16:23 Drug: NS 0.9% 1000 ml Route: IV; Rate: 125 ml/hr; Site: right antecubital; ca1 19:16 Follow up: IV Status: Infusion continued upon admission aa1 16:53 Drug: SOLU-Medrol 125 mg Route: IVP; Site: right antecubital; ca1 17:33 Follow up: Response: No adverse reaction tw2 16:55 Drug: Xopenex 1.25 mg Route: Inhalation; ca1 16:55 Drug: AtroVENT Aerosol 0.5 mg Route: Inhalation; ca1 17:03 Drug: Rocephin 1 grams Route: IV; Rate: per protocol; Site: right antecubital; ca1 17:08 Follow up: Response: No adverse reaction; IV Status: Completed infusion tw2 17:32 Drug: Lopressor 25 mg Route: PO; tw2 18:46 Follow up: Response: No adverse reaction tw2 18:02 Drug: Zithromax 500 mg Route: IVPB; Infused Over: 1 hrs; Site: right antecubital; tw2 Outcome: 17:23 Decision to Hospitalize by Provider. [facility] 20:36 Admitted to Tele accompanied by tech, family with patient, via wheelchair, room 410, dm5 with chart, Report called to DANK Celeste 20:36 Condition: good 20:36 Instructed on the need for admit, Demonstrated understanding of instructions. 20:37 Patient left the ED. dm5 Signatures: Dispatcher [employer] EDIzzy Love RN RN dm5 Brenda Parry RN RN aa1 Julio Cesar Sullivan MD MD cha Rivera, Anahi mr Joy Bang RN RN tw2 Arash Lopez RN RN jl7 Kaila Perdomo mw3 Sivan Navarrete RN RN ca1 Toma Lamb lt1 Corrections: (The following items were deleted from the chart) 16:39 16:27 Home Meds: [place] Thyroid 90 mg Oral tab 90 mg daily for Hypothyroidism; jl7 tw2
--- NOTE | 2019-08-25 17:25 | EDPHYS ---
Physician Documentation [facility] Name: Angelo Gonzalez Age: 84 yrs Sex: Male : 1935 Arrival Date: 08/25/2019 Time: 16:[address] Private MD: NALLELY CEDENO ED Physician Julio Cesar Sullivan HPI: 08/25 16:49 This 84 yrs old Male presents to ER via Ambulatory with complaints of Low wyatt Pulse rate, Cough. 16:49 The patient or guardian reports airway noise, cough, difficulty breathing. Onset: The wyatt symptoms/episode began/occurred 10 day(s) ago. Severity of symptoms: At their worst the symptoms were mild, moderate, in the emergency department the symptoms are unchanged. Modifying factors: The symptoms are alleviated by nothing, the symptoms are aggravated by exertion. Associated signs and symptoms: The patient has no apparent associated signs or symptoms. The patient has not experienced similar symptoms in the past. Historical: - Allergies: 16:27 PENICILLINS; jl7 - Home Meds: 16:27 [place] Thyroid 15 mg Oral tab [Active]; bisoprolol-hydrochlorothiazide 2.5-6.25 mg Oral jl7 tab 1 tab once daily [Active]; cyclobenzaprine 10 mg Oral tab [Active]; Flomax 0.4 mg Oral cp24 1 cap once daily [Active]; Nexium 40 mg Oral cpDR 1 cap once daily for Gastroesophageal reflux [Active]; red yeast rice 600 mg Oral cap twice a day [Active]; 16:35 [place] Thyroid 60 mg oral tab 2 tabs daily [Active]; testosterone buccal 200 mg/ml tw2 buccal 1 ml daily [Active]; esomeprazole magnesium 20 mg oral cpDR 1 cap once daily [Active]; Vitamin B-12 Oral [Active]; Vitamin B-6 Oral [Active]; vitamin D3-vitamin Q-renwhwzzu-pbxd oral oral [Active]; curamin bcm 95 twice a day [Active]; omega-3 fatty acids oral oral [Active]; - PMHx: 16:27 aortic aneurysm; Arthritis; Cancer; bladder; Hypertension; BPH; Hypothyroidism; jl7 - PSHx: 16:27 None; jl7 - Immunization history:: Adult Immunizations Adult Immunizations up to date. - Social history:: Smoking status: Smoking status: Patient/guardian denies using tobacco. - Ebola Screening: : Patient denies travel to an Ebola-affected area in the 21 days before illness onset No symptoms or risks identified at this time. - Family history:: not pertinent. ROS: 16:49 Constitutional: Negative for fever, chills, and weight loss, Eyes: Negative for injury, wyatt pain, redness, and discharge, ENT: Negative for injury, pain, and discharge, Neck: Negative for injury, pain, and swelling, Abdomen/GI: Negative for abdominal pain, nausea, vomiting, diarrhea, and constipation, Back: Negative for injury and pain, : Negative for injury, bleeding, discharge, and swelling, MS/Extremity: Negative for injury and deformity, Skin: Negative for injury, rash, and discoloration, Neuro: Negative for headache, weakness, numbness, tingling, and seizure, Psych: Negative for depression, anxiety, suicide ideation, homicidal ideation, and hallucinations, Allergy/Immunology: Negative for hives, rash, and allergies, Endocrine: Negative for neck swelling, polydipsia, polyuria, polyphagia, and marked weight changes, Hematologic/Lymphatic: Negative for swollen nodes, abnormal bleeding, and unusual bruising. 16:49 Cardiovascular: Positive for palpitations. 16:49 Respiratory: Positive for cough, shortness of breath, wheezing, expiratory. Exam: 16:49 Constitutional: This is a well developed, well nourished patient who is awake, alert, wyatt and in no acute distress. Head/Face: Normocephalic, atraumatic. Eyes: Pupils equal round and reactive to light, extra-ocular motions intact. Lids and lashes normal. Conjunctiva and sclera are non-icteric and not injected. Cornea within normal limits. Periorbital areas with no swelling, redness, or edema. ENT: Nares patent. No nasal discharge, no septal abnormalities noted. Tympanic membranes are normal and external auditory canals are clear. Oropharynx with no redness, swelling, or masses, exudates, or evidence of obstruction, uvula midline. Mucous membranes moist. Neck: Trachea midline, no thyromegaly or masses palpated, and no cervical lymphadenopathy. Supple, full range of motion without nuchal rigidity, or vertebral point tenderness. No Meningismus. Chest/axilla: Normal chest wall appearance and motion. Nontender with no deformity. No lesions are appreciated. Abdomen/GI: Soft, non-tender, with normal bowel sounds. No distension or tympany. No guarding or rebound. No evidence of tenderness throughout. Back: No spinal tenderness. No costovertebral tenderness. Full range of motion. Male : Normal genitalia with no discharge or lesions. Skin: Warm, dry with normal turgor. Normal color with no rashes, no lesions, and no evidence of cellulitis. MS/ Extremity: Pulses equal, no cyanosis. Neurovascular intact. Full, normal range of motion. Neuro: Awake and alert, GCS 15, oriented to person, place, time, and situation. Cranial nerves II-XII grossly intact. Motor strength 5/5 in all extremities. Sensory grossly intact. Cerebellar exam normal. Normal gait. Psych: Awake, alert, with orientation to person, place and time. Behavior, mood, and affect are within normal limits. 16:49 Cardiovascular: Rate: tachycardic, Rhythm: irregular, Pulses: Pulses are 4+ in bilateral radial, brachial, femoral, popliteal, posterior tibial and and dorsalis pedis arteries.. Heart sounds: normal, normal S1and S2, no S3 or S4, no murmur, no rub, no gallop, Edema: is not appreciated, JVD: is not appreciated. 16:59 Musculoskeletal/extremity: DVT Exam: No signs of deep vein thrombosis. no pain, no wyatt swelling, no tenderness, negative Homans' sign noted on exam, no appreciated bluish discoloration, no erythema, no increased warmth. Vital Signs: 16:24 BP 137 / 92; Pulse 109; Resp 17; Pulse Ox 98% on R/A; tw2 16:27 Temp 98.6(O); ca1 16:47 BP 120 / 88; Pulse 138; Resp 20; Pulse Ox 97% on R/A; tw2 16:50 Pulse 102; tw2 17:56 BP 135 / 85; Pulse 99; Resp 17; Pulse Ox 99% on R/A; tw2 18:03 BP 142 / 88; Pulse 96; Resp 18; Pulse Ox 97% on R/A; tw2 18:27 BP 142 / 88; Pulse 84; Resp 20; Pulse Ox 96% on R/A; ca1 19:18 BP 129 / 83; Pulse 74; Resp 20; Temp 98.9; Pulse Ox 95% on R/A; Pain 0/10; aa1 16:47 provider notified. tw2 MDM: 16:15 Patient medically screened. [facility] 16:49 Data reviewed: vital signs, nurses notes, lab test result(s), EKG, radiologic studies, wyatt plain films. 08/25 16:15 Order name: Basic Metabolic Panel [facility] 08/25 16:15 Order name: CBC with Diff; Complete Time: 16:49 [facility] 08/25 16:15 Order name: LFT's [facility] 08/25 16:15 Order name: Magnesium [facility] 08/25 16:15 Order name: NT PRO-BNP [facility] 08/25 16:15 Order name: PT-INR; Complete Time: 16:58 [facility] 08/25 16:15 Order name: Troponin (emerg Dept Use Only) [facility] 08/25 16:15 Order name: XRAY Chest (1 view); Complete Time: 16:58 [facility] 08/25 16:15 Order name: Urine Culture [facility] 08/25 16:15 Order name: TSH [facility] 08/25 16:48 Order name: Blood Culture Adult (2) [facility] 08/25 17:20 Order name: CT Chest For PE Angio; Complete Time: 18:45 [facility] 08/25 19:06 Order name: Urine Dipstick--Ancillary (enter results) cm6 08/25 19:41 Order name: Urine Dipstick-Ancillary EDMS 08/25 16:15 Order name: EKG; Complete Time: 16:16 [facility] 08/25 16:15 Order name: Cardiac monitoring; Complete Time: 16:20 [facility] 08/25 16:15 Order name: EKG - Nurse/Tech; Complete Time: 16:20 [facility] 08/25 16:15 Order name: IV Saline Lock; Complete Time: 16:20 [facility] 08/25 16:15 Order name: Labs collected and sent; Complete Time: 16:20 [facility] 08/25 16:15 Order name: O2 Per Protocol; Complete Time: 16:20 [facility] 08/25 16:15 Order name: O2 Sat Monitoring; Complete Time: 16:20 [facility] 08/25 16:15 Order name: Urine Dipstick-Ancillary (obtain specimen); Complete Time: 19:17 [facility] 08/25 16:46 Order name: EKG; Complete Time: 16:46 [facility] 08/25 16:46 Order name: EKG - Nurse/Tech; Complete Time: 17:03 wyatt Administered Medications: 16:23 Drug: NS 0.9% 1000 ml Route: IV; Rate: 125 ml/hr; Site: right antecubital; ca1 19:16 Follow up: IV Status: Infusion continued upon admission aa1 16:53 Drug: SOLU-Medrol 125 mg Route: IVP; Site: right antecubital; ca1 17:33 Follow up: Response: No adverse reaction tw2 16:55 Drug: Xopenex 1.25 mg Route: Inhalation; ca1 16:55 Drug: AtroVENT Aerosol 0.5 mg Route: Inhalation; ca1 17:03 Drug: Rocephin 1 grams Route: IV; Rate: per protocol; Site: right antecubital; ca1 17:08 Follow up: Response: No adverse reaction; IV Status: Completed infusion tw2 17:32 Drug: Lopressor 25 mg Route: PO; tw2 18:46 Follow up: Response: No adverse reaction tw2 18:02 Drug: Zithromax 500 mg Route: IVPB; Infused Over: 1 hrs; Site: right antecubital; tw2 Disposition: 08/25/19 17:23 Hospitalization ordered by Candelaria Lee for Inpatient Admission. Preliminary diagnosis are Dyspnea, Palpitations, Tachycardia, unspecified, Weakness, Pulmonary fibrosis, unspecified. - Bed requested for Telemetry/MedSurg (Inpatient). - Status is Inpatient Admission. dm5 - Condition is Fair. - Problem is new. - Symptoms have improved. UTI on Admission? No Signatures: Dispatcher [employer] Izzy Garcia RN RN dm5 Anu Lopez RN RN Julio Cesar Du MD MD cha Wise, Tara, RN RN tw2 Arash Lopez RN RN jl7 Sivan Navarrete RN RN ca1 Brenda Parry RN aa1 Corrections: (The following items were deleted from the chart) 16:39 16:27 Home Meds: [place] Thyroid 90 mg Oral tab 90 mg daily for Hypothyroidism; jl7 tw2 18:40 17:23 Hospitalization Ordered by Candelaria Lee MD for Inpatient Admission. dw Preliminary diagnosis is Dyspnea; Palpitations; Tachycardia, unspecified; Weakness; Pulmonary fibrosis, unspecified. Bed requested for Telemetry/MedSurg (Inpatient). Status is Inpatient Admission. Condition is Fair. Problem is new. Symptoms have improved. UTI on Admission? No. wyatt 18:57 18:40 08/25/2019 17:23 Hospitalization Ordered by Candelaria Lee MD for Inpatient dw Admission. Preliminary diagnosis is Dyspnea; Palpitations; Tachycardia, unspecified; Weakness; Pulmonary fibrosis, unspecified. Bed requested for Telemetry/MedSurg (Inpatient). Status is Inpatient Admission. Condition is Fair. Problem is new. Symptoms have improved. UTI on Admission? No. dw 20:37 18:57 08/25/2019 17:23 Hospitalization Ordered by Candelaria Lee MD for Inpatient dm5 Admission. Preliminary diagnosis is Dyspnea; Palpitations; Tachycardia, unspecified; Weakness; Pulmonary fibrosis, unspecified. Bed requested for Telemetry/MedSurg (Inpatient). Status is Inpatient Admission. Condition is Fair. Problem is new. Symptoms have improved. UTI on Admission? No. dw
[2019-08-25] MEDS ORDERED: METOPROLOL TAR 25 MG TAB ONE (17:33)
[2019-08-25] MEDS ORDERED: AZITHROMYCIN IV 500 MG in NA CHLORIDE 0.9% 250 ML IVPB ONE (18:00)
--- NOTE | 2019-08-25 18:09 | RAD REPORT ---
EXAM DESCRIPTION: CT - Chest For Pe Angio - 08/25/2019 5:44 pm CLINICAL HISTORY: Cough;Dyspnea;Palpitations COMPARISON: Thorax Wo Con dated 03/13/2019; Chest Single View dated 08/25/2019 TECHNIQUE: Dynamically enhanced 3 mm thick images of the chest were obtained during administration o f approximately 150mL Isovue 370 IV contrast. Coronal and oblique MIP reconstruction images were gene rated and reviewed. Exam utilizes a protocol to evaluate the pulmonary arterial tree. All CT scans are performed using dose optimization technique as appropriate and may include automated exposure control or mA/KV adjustment according to patient size. FINDINGS: No pulmonary emboli are identified. Aorta shows no acute finding. Ascending aorta is 4.4 centimeter similar to comparison. No pericardial thickening or effusion. No focal mass or consolidation. Interstitial markings are prominent, further accentuated by motion de gradation. Interstitial edema or infiltrate not excluded. With No mediastinal or hilar suspicious masses. No chest wall masses or abnormal axillary lymphadenopathy. Enlarged left thyroid lobe is present similar to comparison. Gland is not fully assessed on this st udy. IMPRESSION: No pulmonary emboli identified. No focal mass or consolidation. Interstitial edema or infiltrate could be masked by the extent of mot ion.
[2019-08-25] MEDS ORDERED: SODIUM CHL 0.9% 1000 ML BAG IV SCH (19:00)
[2019-08-25 19:41] LABS: Urine Blood NEGATIVE (NEG); Urine Glucose NEGATIVE (NEG); Urine Protein NEGATIVE (NEG); Urine Specific Gravity 1.015 (1.005-1.030)
[2019-08-25] MEDS ORDERED: NITROGLYCERIN 0.4 MG/TAB SL PRN (20:55)
[2019-08-25] MEDS ORDERED: ONDANSETRON 4 MG/2 ML VIAL IV PRN (20:55)
[2019-08-25] MEDS ORDERED: ACETAMINOPHEN 650MG/RECT SUPP RECT PRN (20:55)
[2019-08-25] MEDS ORDERED: ZOLPIDEM TARTRATE 5 MG TABLET PO PRN (20:55)
[2019-08-25 20:59] VITALS: BMI 25.6
[2019-08-25] MEDS ORDERED: TAMSULOSIN 0.4 MG SR CAP PO SCH (21:00)
[2019-08-25] MEDS ORDERED: CYCLOBENZAPRINE 10 MG TAB PO SCH (21:00)
[2019-08-25 22:12] LABS: CKMB Creatine Kinase MB 1.4 ng/mL (0.3-3.6); Creatine Phosphokinase 57 U/L (39-308); Troponin I < 0.02 ng/mL (0.0-0.045)
--- NOTE | 2019-08-25 22:16 | HP ---
Date of Admission: 08/25/2019 Reason For Admission: Palpitation, tachycardia. History Of Present Illness: This is an 84-year-old gentleman with history of multiple medical proble ms including hypothyroidism, arthritis, hypertension, BPH, who presented to emergency room with histo ry of 1 week of not feeling well. The patient with respiratory symptoms. He described similarly to the primary care physician to have some shortness of breath. Lately, his symptoms got worse with pro gressive fatigue. His heart rate was up all the way to 150. He called has a [facility] nurse and s he advised him to come to emergency room. There, he was evaluated. He was slightly tachycardic but only sinus tachycardia. Dr. Sullivan proceeded with a CAT scan to rule out PE, but that is still pen ding and admit him to make sure he is ruled out over night. Currently, he is lying in the bed. He l ooks comfortable. He has no chest pain, but is not feeling well. He has no fever, no chills. Michelle nue to be fatigued. Review of Systems: Otherwise as below. Past Medical History: Significant for arthritis, bladder cancer, hypertension, BPH, hypothyroidism. Past Surgical History: None. Allergies: TO PENICILLIN. Home Medications: [place] thyroid 60 tablets daily, testosterone local, Nexium 20 mg daily, vitamin B 12, vitamin D, vitamin B6, omega-3. Social History: He is . He used to work, but currently retired. He does not drink, smoke, o r use any street drugs. Family History: Mother of coronary artery disease. Father of thyroid issue. Review of Systems: Denies any fever, chills, night sweats, dizziness, lightheaded, headache, blurred vision. He has fat igue. He have cough, shortness of breath. There is no sputum. There was some chest tightness, not much. There is no nausea, vomiting, abdominal pain. No dysuria, frequency, urgency, hematuria. The re is no history of PND, orthopnea, dyspnea on exertion. He does have mild shortness of breath with palpitation. There is no history of depression, anxiety, seizure, or stroke. Physical Examination: Vital Signs: Currently, his blood pressure is 120/88, respiratory rate 20, pulse 138, pulse ox 97% o n room air. General: He is alert and oriented x3. Does not look in any distress. HEENT: Atraumatic, normocephalic. PERRLA. Oral mucosa is moist. Neck: Supple. No JVD. No carotid bruit. Chest: Clear to auscultation. Good air entry. Heart: Regular rate and rhythm. S1, S2 normal. No gallop or murmur. Tachy. Abdomen: Soft, nontender. No masses. No hepatosplenomegaly. Positive bowel sounds present. Extremities: No clubbing, cyanosis, or edema. No calf tenderness. Neurologic: Grossly intact. Cranial exam 2 through 12 are intact. Normal sensation. Normal reflex es. Normal muscle strength. Laboratory Data: Today, showed CBC within normal except for hemoglobin of 18. A CMP was normal exce pt for creatinine 1.31, GFR 52. Thyroid is pending. BNP normal. Cardiac enzymes pending. Chest x-ray negative. CAT scan to rule out PE pending. EKG shows sinus tachycardia. Assessment And Plan: This is an 84-year-old gentleman with history of multiple medical problems incl uding pulmonary fibrosis, hypothyroidism, presented with progressive weakness over the last week, wor se by symptoms and found to have sinus tachycardia. 1.Sinus tachycardia with nonspecific symptoms. We will admit patient to floor, keep him on tele. R ule out arrhythmia. We will consult Cardiology. Patient will see Dr. Marin. He would like to see his pace analyst before he leaves. Will place patient on aspirin, low dose of metoprolol. 2.Rule out pulmonary embolism. CAT scan still pending. We will place patient on deep ve nous thrombosis prophylaxis dose unless he had PE, then we will change that to full dose. 3.Upper respiratory symptoms. Patient was given ceftriaxone and he already completed his course of Zithromax, so we will hold on antibiotic. 4.History of pulmonary fibrosis. The patient also had normal we will not place on breath ing treatment at this point. 5.Resume home medication. 6.History of benign prostatic hypertrophy. We will resume Flomax. 7.Renal insufficiency. We will place the patient on IV fluid. 8.Hypothyroidism. We will check TSH and T4 and T3 and resume his [place]. JIMENA/LEANN Voice ID: [id number]
[2019-08-25 22:46] LABS: T4,Total 8.1 ug/dL (4.5-12.1)
[2019-08-25] MEDS: METOPROLOL TAR 50 MG TAB PO SCH (23:12)
[2019-08-26] MEDS: NA CHLORIDE 0.9% 1,000 ML IV SCH ×2 (01:58→10:26)
[2019-08-26 06:17] VITALS: TEMP 97.6
[2019-08-26] MEDS ORDERED: THYROID 30 MG TAB PO SCH (06:30)
[2019-08-26 06:39] LABS: CKMB Creatine Kinase MB 1.1 ng/mL (0.3-3.6); Creatine Phosphokinase 46 U/L (39-308); HDL Cholesterol 49 mg/dL (40-60); LDL Cholesterol, Calculated 89 (<130); Troponin I < 0.02 ng/mL (0.0-0.045)
[2019-08-26] MEDS ORDERED: PANTOPRAZOLE 40MG TABLET PO SCH (07:30)
[2019-08-26] MEDS ORDERED: BISOPROLOL/HCTZ 2.5/6.25MG TAB PO SCH (08:00)
[2019-08-26] MEDS ORDERED: HCTZ PO SCH (08:00)
[2019-08-26] MEDS ORDERED: BISOPROLOL PO SCH (08:00)
[2019-08-26 08:17] VITALS: BP 111/59
[2019-08-26 08:22] VITALS: O2SAT 94
[2019-08-26] MEDS ORDERED: ENOXAPARIN 40 MG/0.4 ML SQ SCH (09:00)
[2019-08-26] MEDS: METOPROLOL TAR 50 MG TAB PO SCH (09:00)
[2019-08-26] MEDS ORDERED: HOME MED 1 EA UNK (Esomeprazole Mag Trihydrate [Nexium] 1 TAB) PO SCH (09:00)
[2019-08-26] MEDS ORDERED: ASPIRIN EC 81 MG TAB PO SCH (09:00)
--- NOTE | 2019-08-26 12:49 | EKG ---
Test Date: 2019-08-25 Test Time: 16:17:56 Lapel Padder Blindstitch: ANITA MEASUREMENT RESULTS: Intervals: Rate: 110 PA: 170 QRSD: 114 QT: 334 QTc: 452 [place]: P: 70 PA: 170 QRS: -62 T: 88 INTERPRETIVE STATEMENTS: Sinus tachycardia Left anterior fascicular block Left ventricular hypertrophy with repolarization abnormality Possible Lateral infarct, age undetermined Abnormal ECG Compared to ECG 07/30/2018 16:02:46 Sinus rhythm no longer present Myocardial infarct finding still present Electronically Signed On 08-26-19 12:48:22 ACTIVITY THERAPIST by Hollis Kuhn
--- NOTE | 2019-08-26 12:49 | EKG ---
Test Date: 2019-08-25 Test Time: 16:58:46 Manager Business Development Hosp[facility]: LMT MEASUREMENT RESULTS: Intervals: Rate: 105 MD: 174 QRSD: 114 QT: 340 QTc: 449 [place]: P: 73 MD: 174 QRS: -69 T: 80 INTERPRETIVE STATEMENTS: Sinus tachycardia Left anterior fascicular block Left ventricular hypertrophy with repolarization abnormality Possible Lateral infarct, age undetermined Abnormal ECG Compared to ECG 08/25/2019 16:17:56 No significant changes Electronically Signed On 08-26-19 12:47:44 MOLD MAINTENANCE TECHNICIAN by Hollis Kuhn
--- NOTE | 2019-08-27 00:17 | DS ---
Date of Discharge: 08/26/2019 Discharge Diagnoses: 1.Chest pain, rule out myocardial infarction. 2.Tachycardia, resolved. 3.Rule out pulmonary embolism. 4.Recurrent sinus infection. 5.Renal insufficiency, mild. 6.Hypothyroidism. Consult: None. Procedure: CT of the chest was negative for PE as well as a pneumonia. History Of Present Illness: Please refer to Dr. Lee's admission note yesterday. Hospital Course: Initially, patient presented to emergency room with progressive fatigue, very nonsp ecific chest tightness, sinus drainage. By ER he was evaluated, PE was ruled out, [facility] set of cardiac enzyme were negative. Patient continued to have sinus drainage, so he receiv ed ceftriaxone IV yesterday. He already finished 3 sets of course of antibiotic as outpatient. I ad vised patient that he will need probably to be evaluated by ENT as outpatient and maybe consider sinu s-scope and further workup to be done as outpatient. He will see primary care physician tomorrow hayde jacobs and get ENT appointment in terms of patient drainage, it was clear. The patient has not spiked a fever overnight, did not have any sore throat. He reported his lower extremity turning blue at [facility] and suggested Doppler to be done as outpatient by Dr. Marin. The patient will be discharged [facility] in stable condition. He advised to avoid exertion until he sees Dr. Marin and continue his cardia c diet. Discharge Condition: Stable. Discharged Diet: Cardiac. Discharge Activity: As tolerated with avoiding exertion. Patient to follow up with primary care physician on Tuesday to arrange for ENT appointment. Follow up with Dr. Marin in middle of next week and arrange for lower extremity Doppler. Physical Examination: Discharge Vital Signs: Blood pressure is 111/59, temperature 97.6, heart rate 71, respiratory rate 1 8. Patient is saturating 94 on room air. General: Patient is alert, oriented x3, does not look in any distress. HEENT: Atraumatic, normocephalic. PERRLA. Oral mucosa is moist. Neck: Supple. No JVD. No carotid bruits. Chest: Clear to auscultation. Good air entry. Heart: Regular rate and rhythm. S1, S2 normal. No gallop or murmur. Abdomen: Soft, nontender. No masses. No hepatosplenomegaly. Positive bowel sounds. Extremities: No clubbing, cyanosis, or edema. No calf tenderness. Neurologic: Grossly intact. Cranial nerve exam 1 through 12 intact. Normal sensation. Normal refl exes. Normal muscle strength. Discharge Medications: Aspirin 81 mg orally once a day, Astelin 2 puff inhaler twice a day, benzonat ate 100 mg t.i.d., Ziac 1 tablet orally daily, Flexeril 10 mg half tab at bedtime, cyclosporine eye d rops, Nexium 20 mg daily, testosterone 100, [place] 120 mg daily, Turmeric 1 capsule daily. In terms of patient's testosterone, patient advised he has polycythemia, too much red blood cells and advised to stop testosterone. He said he will discuss that with the primary care physician. He und erstands he may need eventually phlebotomy and understands the risk of stroke or heart attack if he c ontinues to take testosterone as before. JIMENA/LEANN Voice ID: [id number] Report ID: [id number]
== END 2019-08-26 12:22 | disposition home or self-care (01) ==
LOC: ER 15:58 → ERHOLD 17:55 → 4TH 20:33
PROVIDERS: ADMIT Internal Medicine; ATTEND Internal Medicine
DX: R07.9 Chest pain, unspecified (principal); R00.0 Tachycardia, unspecified; J32.8 Other chronic sinusitis; N28.9 Disorder of kidney and ureter, unspecified; E03.9 Hypothyroidism, unspecified; I10 Essential (primary) hypertension; N40.0 Benign prostatic hyperplasia without lower urinary tract symptoms; Z85.51 Personal history of malignant neoplasm of bladder; Z88.0 Allergy status to penicillin
CPT/HCPCS: 96361; 93005 ×2; 87040 ×2; 87088; 85025; 80048; 36415; 83735; 82550 ×2; 85610; 80061; 80076; 84436; 84443; 81003; 84484 ×3; 82553 ×2; 84439; 83880; 71275; 71045; 94760 ×2; 96375; 96374; 99285; Q9967; J0456; J1650; J0696; J7030 ×4; J2930; G0378 ×3; 87086

== ENCOUNTER 2020-03-24 12:59 | Emergency (ER) | payer OTHER, BC ==
[2020-03-24] MEDS ORDERED: HYDROCODONE/APAP 5/325 MG TAB ONE (14:38)
[2020-03-24] MEDS ORDERED: TETANUS & DIPHTHERIA TOX,ADULT 0.5 ML VIAL ONE (14:39)
--- NOTE | 2020-03-24 15:04 | RAD REPORT ---
EXAM DESCRIPTION: RAD - Forearm Right - 03/24/2020 2:48 pm CLINICAL HISTORY: Right arm pain status post fall FINDINGS: No fracture is seen.
--- NOTE | 2020-03-24 15:05 | RAD REPORT ---
EXAM DESCRIPTION: RAD - Humerus Right - 03/24/2020 2:48 pm CLINICAL HISTORY: Right arm pain status post fall FINDINGS: No fracture is seen. Osteoporosis
--- NOTE | 2020-03-24 15:06 | ER ---
Nurse's Notes [facility] Name: Angelo Gonzalez Age: 84 yrs Sex: Male : 1935 Arrival Date: 03/24/2020 Time: 13:00 Bed 15 Private MD: Diagnosis: Fall on same level from slipping, tripping and stumbling with subsequent striking against object;Contusion, Hematoma, and skin tears to right arm Presentation: 03/24 13:07 Chief complaint: Patient's son or daughter states: Tripped and fell forward. Denies ca1 LOC, Denies hitting head. Lac on R forearm, R upper arm, L elbow, abrasion on L knee. Bleeding controlled. Coronavirus screen: Client denies travel out of the [place] in the last 14 days. At this time, the client does not indicate any symptoms associated with coronavirus-19. Ebola Screen: Patient negative for fever greater than or equal to 101.5 degrees Fahrenheit, and additional compatible Ebola Virus Disease symptoms Patient denies exposure to infectious person. Patient denies travel to an Ebola-affected area in the 21 days before illness onset. No symptoms or risks identified at this time. Initial Sepsis Screen: Does the patient meet any 2 criteria? No. Patient's initial sepsis screen is negative. Does the patient have a suspected source of infection? No. Patient's initial sepsis screen is negative. Risk Assessment: Do you want to hurt yourself or someone else? Patient reports no desire to harm self or others. Onset of symptoms was March 24, 2020. 13:07 Method Of Arrival: Wheelchair ca1 13:07 Acuity: ARMIDA 4 ca1 Historical: - Allergies: 13:11 No Known Allergies; ca1 - PMHx: 13:11 aortic aneurysm; Arthritis; BPH; Cancer; bladder; Hypertension; Hypothyroidism; ca1 - PSHx: 13:11 None; ca1 - Immunization history:: Adult Immunizations up to date, Last tetanus immunization: < 5 years ago. - Social history:: Smoking status: Patient denies any tobacco usage or history of. Screenin:50 Abuse screen: Denies threats or abuse. Nutritional screening: No deficits noted. aa5 Tuberculosis screening: No symptoms or risk factors identified. Fall Risk Fall in past 12 months (25 points). No secondary diagnosis (0 pts). No IV (0 pts). Ambulatory Aid- None/Bed Rest/Nurse Assist (0 pts). Gait- Normal/Bed Rest/Wheelchair (0 pts) Mental Status- Oriented to own ability (0 pts). Total Burger Fall Scale indicates Low Risk Score (25-44 pts). Fall prevention measures have been instituted. Side Rails Up X 2 Placed close to Nursing Station. Assessment: 13:50 General: Appears uncomfortable, Behavior is calm, cooperative. Pain: Complains of pain aa5 in right arm Pain does not radiate. Pain currently is 8 out of 10 on a pain scale. Quality of pain is described as aching, tender, Pain began post fall today Is continuous. Neuro: Level of Consciousness is awake, alert, obeys commands, Oriented to person, place, time, situation. Cardiovascular: Patient's skin is warm and dry. Respiratory: Airway is patent Respiratory effort is even, unlabored, Respiratory pattern is regular, symmetrical. GI: No signs and/or symptoms were reported involving the gastrointestinal system. : No signs and/or symptoms were reported regarding the genitourinary system. EENT: No signs and/or symptoms were reported regarding the EENT system. Derm: Skin is pink, warm \T\ dry. Skin tear noted to right FA, 2 skin tears noted to right upper arm, skin tear noted to left elbow, abrasion noted to left knee. No active bleeding noted. Musculoskeletal: Range of motion: intact in all extremities. 14:36 Reassessment: Patient is alert, oriented x 3, equal unlabored respirations, skin aa5 warm/dry/pink. x-ray at bedside . 14:55 Reassessment: Patient is alert, oriented x 3, equal unlabored respirations, skin aa5 warm/dry/pink. Wounds to right arm, left arm, and left knee cleaned with chlorhexidine and saline, skin tears approximated, dressed with Neosporin, non-adherent dressing, and laura bandage. Pt tolerated well. . 15:40 Reassessment: Patient is alert, oriented x 3, equal unlabored respirations, skin aa5 warm/dry/pink. Vital Signs: 13:07 BP 135 / 94; Pulse 95; Resp 15 S; Temp 97.9(O); Pulse Ox 99% on R/A; Weight 75.3 kg ca1 (R); Height 5 ft. 6 in. (167.64 cm) (R); 14:00 BP 133 / 84; Pulse 85; Resp 16 S; Pulse Ox 97% on R/A; aa5 15:00 BP 120 / 76; Pulse 86; Resp 16 S; Pulse Ox 96% on R/A; aa5 13:07 Body Mass Index 26.79 (75.30 kg, 167.64 cm) ca1 ED Course: 13:00 Patient arrived in ED. ag5 13:10 Triage completed. ca1 13:11 Arm band placed on right wrist. ca1 13:46 Natalia Noriega, RN is Primary Nurse. aa5 13:47 Autumn Carreon FNP-C is PHCP. snw 13:47 Julio Cesar Sullivan MD is Attending Physician. snw 13:50 Patient has correct armband on for positive identification. Bed in low position. Call aa5 light in reach. Side rails up X2. 14:48 Humerus Right XRAY In Process Unspecified. EDMS 14:48 Forearm Right XRAY In Process Unspecified. EDMS 15:40 No provider procedures requiring assistance completed. Patient did not have IV access aa5 during this emergency room visit. Administered Medications: 14:35 Drug: Tetanus-Diphtheria Toxoid Adult 0.5 ml {Stave Block Roller: [employer]. Exp: aa5 10/11/2022. Lot #: [id number]. } Route: IM; Site: right deltoid; 15:00 Follow up: Response: No adverse reaction aa5 14:36 Drug: [place] 5 mg-325 mg 1 tabs Route: PO; aa5 15:00 Follow up: Response: No adverse reaction aa5 Outcome: 15:05 Discharge ordered by . snw 15:40 Discharged to home ambulatory. aa5 15:40 Condition: stable 15:40 Discharge instructions given to patient, Instructed on discharge instructions, follow up and referral plans. medication usage, Demonstrated understanding of instructions, follow-up care, medications, Prescriptions given X 2. 15:50 Patient left the ED. aa5 Signatures: Dispatcher [employer] EDMS Autumn Carreon FNP-C CAMPUS SECURITY DIRECTOR-[place] Natalia Noriega, RN DANK aa5 Sivan Navarrete RN RN ca1 Meghana Vazquez ag5
--- NOTE | 2020-03-24 15:06 | EDPHYS ---
Physician Documentation [facility] Name: Angelo Gonzalez Age: 84 yrs Sex: Male : 1935 Arrival Date: 03/24/2020 Time: 13:00 Bed 15 Private MD: ED Physician Julio Cesar Sullivan HPI: 03/24 14:15 This 84 yrs old Male presents to ER via Wheelchair with complaints of Fall snw Injury. 14:15 Details of fall: The patient fell from an upright position. Onset: The symptoms/episode snw began/occurred suddenly, just prior to arrival. Associated injuries: The patient sustained right arm, painful injury, left knee, contusion. Severity of symptoms: At their worst the symptoms were moderate. The patient has not experienced similar symptoms in the past. It is unknown whether or not the patient has recently seen a physician. Historical: - Allergies: 13:11 No Known Allergies; ca1 - PMHx: 13:11 aortic aneurysm; Arthritis; BPH; Cancer; bladder; Hypertension; Hypothyroidism; ca1 - PSHx: 13:11 None; ca1 - Immunization history:: Adult Immunizations up to date, Last tetanus immunization: < 5 years ago. - Social history:: Smoking status: Patient denies any tobacco usage or history of. ROS: 14:14 Constitutional: Negative for fever, chills, and weight loss, Eyes: Negative for injury, snw pain, redness, and discharge, ENT: Negative for injury, pain, and discharge, Neck: Negative for injury, pain, and swelling, Cardiovascular: Negative for chest pain, palpitations, and edema, Respiratory: Negative for shortness of breath, cough, wheezing, and pleuritic chest pain, Abdomen/GI: Negative for abdominal pain, nausea, vomiting, diarrhea, and constipation, Back: Negative for injury and pain, : Negative for injury, bleeding, discharge, and swelling, Neuro: Negative for headache, weakness, numbness, tingling, and seizure, Psych: Negative for depression, anxiety, suicide ideation, homicidal ideation, and hallucinations. 14:14 MS/extremity: Positive for injury or acute deformity, contusion, pain, swelling, of the right arm pain. 14:14 Skin: Positive for tears to right arm, abrasion to left knee. Exam: 14:11 Constitutional: This is a well developed, well nourished patient who is awake, alert, snw and in no acute distress. Head/Face: Normocephalic, atraumatic. Eyes: Pupils equal round and reactive to light, extra-ocular motions intact. Lids and lashes normal. Conjunctiva and sclera are non-icteric and not injected. Cornea within normal limits. Periorbital areas with no swelling, redness, or edema. ENT: Nares patent. No nasal discharge, no septal abnormalities noted. Tympanic membranes are normal and external auditory canals are clear. Oropharynx with no redness, swelling, or masses, exudates, or evidence of obstruction, uvula midline. Mucous membranes moist. Neck: Trachea midline, no thyromegaly or masses palpated, and no cervical lymphadenopathy. Supple, full range of motion without nuchal rigidity, or vertebral point tenderness. No Meningismus. Chest/axilla: Normal chest wall appearance and motion. Nontender with no deformity. No lesions are appreciated. Cardiovascular: Regular rate and rhythm with a normal S1 and S2. No gallops, murmurs, or rubs. Normal PMI, no JVD. No pulse deficits. Respiratory: Lungs have equal breath sounds bilaterally, clear to auscultation and percussion. No rales, rhonchi or wheezes noted. No increased work of breathing, no retractions or nasal flaring. Abdomen/GI: Soft, non-tender, with normal bowel sounds. No distension or tympany. No guarding or rebound. No evidence of tenderness throughout. Back: No spinal tenderness. No costovertebral tenderness. Full range of motion. Neuro: Awake and alert, GCS 15, oriented to person, place, time, and situation. Cranial nerves II-XII grossly intact. Motor strength 5/5 in all extremities. Sensory grossly intact. Cerebellar exam normal. Normal gait. Psych: Awake, alert, with orientation to person, place and time. Behavior, mood, and affect are within normal limits. 14:11 Musculoskeletal/extremity: Extremities: grossly normal except: noted in the right arm and left knee: contusion, tenderness, pt with skin tear up right anterior forearm with hematoma to lateral aspect, skin tear to right medial aspect with underlying hematoma, left knee with abrasion, Circulation is intact in all extremities. Sensation intact. Vital Signs: 13:07 BP 135 / 94; Pulse 95; Resp 15 S; Temp 97.9(O); Pulse Ox 99% on R/A; Weight 75.3 kg ca1 (R); Height 5 ft. 6 in. (167.64 cm) (R); 14:00 BP 133 / 84; Pulse 85; Resp 16 S; Pulse Ox 97% on R/A; aa5 15:00 BP 120 / 76; Pulse 86; Resp 16 S; Pulse Ox 96% on R/A; aa5 13:07 Body Mass Index 26.79 (75.30 kg, 167.64 cm) ca1 MDM: 13:47 Patient medically screened. snw 15:03 Data reviewed: vital signs, nurses notes. Data interpreted: Pulse oximetry: on room air snw is 99 %. Interpretation: normal. Counseling: I had a detailed discussion with the patient and/or guardian regarding: the historical points, exam findings, and any diagnostic results supporting the discharge/admit diagnosis, radiology results, the need for outpatient follow up, to return to the emergency department if symptoms worsen or persist or if there are any questions or concerns that arise at home. Special discussion: Based on the patient's history, exam and DX evaluation, there is no indication for emergent intervention or inpatient TX. It is understood by the patient/guardian that if the SXs persist or worsen they need to return immediately for re-evaluation. Based on the history and exam findings, there is no indication for further emergent testing or inpatient evaluation. I discussed with the patient/guardian the need to see the primary care provider for further evaluation of the symptoms. 03/24 13:18 Order name: Humerus Right XRAY; Complete Time: 15:08 ca1 03/24 13:18 Order name: Forearm Right XRAY; Complete Time: 15:08 ca1 03/24 14:07 Order name: Wound Care: cleanse with hibiclens, approximate skin tears, and place snw mildly compressive dressings to hematomas please; Complete Time: 14:20 03/24 14:07 Order name: Wound dressing; Complete Time: 14:20 snw Administered Medications: 14:35 Drug: Tetanus-Diphtheria Toxoid Adult 0.5 ml {Apartment Maintenance Supervisor: [employer]. Exp: aa5 10/11/2022. Lot #: [id number]. } Route: IM; Site: right deltoid; 15:00 Follow up: Response: No adverse reaction aa5 14:36 Drug: [place] 5 mg-325 mg 1 tabs Route: PO; aa5 15:00 Follow up: Response: No adverse reaction aa5 Disposition: 17:44 Co-signature as Attending Physician, Julio Cesar Sullivan MD I agree with the assessment and the [facility] plan of care. Disposition: 03/24/20 15:05 Discharged to Home. Impression: Fall on same level from slipping, tripping and stumbling with subsequent striking against object, Contusion, Hematoma, and skin tears to right arm. - Condition is Stable. - Discharge Instructions: Contusion, Hematoma, Fall Prevention in the Home, Skin Tear Care, VIS, Tetanus, Diphtheria (Td) - [facility]. - Prescriptions for Bactroban 2 % Topical Ointment - apply 1 application by INTRANASAL route every 12 hours for 5 days; 15 gram. Ultram 50 mg Oral Tablet - take 1 tablet by ORAL route every 6 hours As needed; 12 tablet. - Medication Reconciliation Form, Thank You Letter, Antibiotic Education, Prescription Opioid Use form. - Follow up: Emergency Department; When: As needed; Reason: Worsening of condition. Follow up: Private Physician; When: 1 - 2 days; Reason: Recheck today's complaints, Continuance of care, Re-evaluation by your physician. Signatures: Dispatcher [employer] EDND Julio Cesar Sullivan MD MD cha Waters, Shelly, GARBAGE COLLECTOR SUPERVISOR-C GARBAGE COLLECTOR SUPERVISOR-[place] Natalia Noriega, RN RN aa5 Sivan Navarrete RN RN ca1 Corrections: (The following items were deleted from the chart) 15:50 15:05 03/24/2020 15:05 Discharged to Home. Impression: Fall on same level from aa5 slipping, tripping and stumbling with subsequent striking against object; Contusion, Hematoma, and skin tears to right arm. Condition is Stable. Forms are Medication Reconciliation Form, Thank You Letter, Antibiotic Education, Prescription Opioid Use. Follow up: Emergency Department; When: As needed; Reason: Worsening of condition. Follow up: Private Physician; When: 1 - 2 days; Reason: Recheck today's complaints, Continuance of care, Re-evaluation by your physician. snw
[2020-03-24 15:54] VITALS: BP 135/94; TEMP 97.9; O2SAT 99
== END 2020-03-24 15:50 | disposition home or self-care (01) ==
LOC: ER 12:59
DX: S51.811A Laceration without foreign body of right forearm, initial encounter (principal); S80.212A Abrasion, left knee, initial encounter; W19.XXXA Unspecified fall, initial encounter; Y93.9 Activity, unspecified; Y92.9 Unspecified place or not applicable; I10 Essential (primary) hypertension; Z23 Encounter for immunization
CPT/HCPCS: 90471; 90714; 99283

== ENCOUNTER 2022-06-18 09:45 | Day surgery (SDC) | payer OTHER ==
[2022-06-14 11:05] LABS: Absolute Lymphocytes (CBC) 1.2 K/uL (0.7-4.9); Hematocrit 36.9 % (39.6-49.0); Lymphocytes % 20.8 % (15.3-44.8); MCV 89.8 fL (80-100); MPV 7.6 fL (7.6-11.3)
[2022-06-18] MEDS ORDERED: CEFAZOLIN SODIUM 1 GM/VIAL ONE (10:08)
[2022-06-18] MEDS ORDERED: Ringers Lactate 1,000 ML IV ONE (10:08)
[2022-06-18] MEDS ORDERED: BUPIVACAINE 0.5% PF 10 ML VIAL ONE (10:32)
[2022-06-18] MEDS ORDERED: propofoL 200 MG/20 ML VIAL IV ONE (10:45)
[2022-06-18] MEDS ORDERED: LIDOCAINE 2% MPF 5 ML VIAL ONE (10:45)
[2022-06-18] MEDS ORDERED: FENTANYL CITR 100 MCG/2 ML ONE (11:00)
[2022-06-18] MEDS ORDERED: ONDANSETRON 4 MG/2 ML VIAL ONE (11:01)
[2022-06-18] MEDS ORDERED: EPHEDRINE SULF 50 MG/ML VIAL ONE (11:12)
[2022-06-18] MEDS ORDERED: HYDROCODONE/APAP 10/325 TAB ONE (12:50)
[2022-06-18 13:55] VITALS: BP 130/40; TEMP 98; O2SAT 98
--- NOTE | 2022-06-19 03:59 | OP ---
Date of Procedure: 06/18/2022 Surgeon: Jose Bailon MD Preoperative Diagnosis: Right knee pain with mechanical symptoms, probable meniscal tear or tears an d probable likelihood of large plica. 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 3.Displaceable medial meniscal tear. Procedure: Right knee arthroscopy with takedown of medial plica and debridement of the medial menisc us. Estimated Blood Loss: Less than 10 cc. Complications: There were no complications. Specimens: No pathology specimen sent. Indications For Operation: Mr. Gonzalez is an 87-year-old male, who has been treated for some time. Despite his advanced age, he is complaining of mechanical symptoms related to his right knee. We thrasher ve tried multiple techniques to alleviate him of this pain; however, he continued to have pain and pr oblems. We performed an MRI, which demonstrated a meniscal tear as well as a large parapatellar plic a. He says he understands things as presented and wishes to progress with arthroscopy. We did discu ss the possibility of total knee arthroplasty. However, at this point, definitely, he wants to proce ed with arthroscopy at least first and agrees to proceed. Description Of Procedure: The patient was taken to the operating room, placed in supine position. G eneral anesthesia was obtained by the staff. Following this, well-padded tourniquet was placed on flores perior right thigh, not used throughout the case. Right lower extremity was then prepped and draped in the usual sterile fashion for the procedure. After this, a standard superior medial arthroscopy p ortal was then established with drainage of approximately 10 cc of rather normal-appearing synovial f luid. This was followed by placement of inferolateral arthroscopy portal and introduction of the cam era, which was done atraumatically with one pass. The knee was then sequentially examined including the suprapatellar pouch, the medial and lateral gutters, medial and lateral compartment, as well as t he notch and patellofemoral joint. Pertinent findings included a small amount of fraying of the late ral meniscus. A fairly large tear of the medial meniscus associated with degenerative articular hemphill ges. Also seen is a quite large band, which extends on the medial side, which appears to drape of th e medial femoral condyle and rubs on the medial femoral condyle, bringing the knee through flexion an d extension. A standard inferior medial arthroscopy portal was then placed using a needle for locali zation. This allowed for probing of all the above areas. He does have a displaced tear of the media l meniscus, near the posterior aspect all the way to the midbody. This was then debrided back using a shaver until its firm hook stable. There may be a small amount of horizontal tear posteriorly; how ever, no meniscus was removed other than that, which was unstable. Attention was then turned to the lateral side. There was a small amount of fraying, which was briefly just capped with the shaver to ensure that it was smooth, not cause a problem. Attention was then turned to the fairly large medial plica. This was addressed using a shaver and it is debrided until the plical tissue is no longer co ntacting the medial femoral condyle when the knee was brought through range of motion. After this, t he knee was again examined and all the above areas with no further pathology seen which was amenable to arthroscopic intervention. The arthroscopy portals are stapled and local anesthetic was then inje cted into the knee. The patient was then placed in a well-padded sterile dressing, awakened, and ai en to recovery room in good condition. There were no complications. /LEANN Voice ID: [id number] Report ID: [id number]
== END 2022-06-18 13:50 | disposition home or self-care (01) ==
LOC: OR 09:45
PROVIDERS: ATTEND Orthopaedic Surgery
PROC: 0SBC4ZZ Excision of Right Knee Joint, Percutaneous Endoscopic Approach (ICD-10-PCS; principal; 2022-06-18 11:00)
DX: S83.241D Other tear of medial meniscus, current injury, right knee, subsequent encounter (principal); M17.11 Unilateral primary osteoarthritis, right knee; M67.51 Plica syndrome, right knee; I10 Essential (primary) hypertension; I25.10 Atherosclerotic heart disease of native coronary artery without angina pectoris; M94.261 Chondromalacia, right knee
CPT/HCPCS: 85025; 80048; 36415; 29877; J2704; J2001; J3010; J7120; J2405; J0690

== ENCOUNTER 2022-10-01 01:15 | Emergency (ER) | payer OTHER ==
--- OUTSIDE RECORDS SUMMARY | 2022-10-01 01:28 | XMS REPORT | Continuity of Care Document ---
:1935 Author Organization [facility] t Address [address] [place] [place] [address] Care Team Providers Name Role Phone Ari Flores Attending Clinician Unavailable Jammie Menard Attending Clinician Unavailable Payers Payer Name Policy Type Policy Effective Date Expiration Date Sour ce Number [facility] 53 [id number] [facility] - [facility] 53 [id number] [facility] MEDICARE NOVITAS MB [id number] 2000 [facility] 00:00:[address] [facility] MEDICARE NOVITAS MB [id number] 2000 [facility] 00:00:00 [facility] Problems Condition Condition Condition Status Onset Resolution Last Treating Co mments Source Name Details Category Date Date Treatment Clinician Date [id number] Right leg Problem Com mon pain [facility] - [facility] [id number] Other tear Problem Co mmon of medial [facility] meniscus - [facility] subsequent encounter [id number] 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 [facility] [id number] DSD Problem Common (detrusor Spirit [facility] [id number] Status Problem Common post Spirit arthroscop - [facility] y of knee [facility] Memory Memory Problem Common loss loss Spirit - [facility] [id number] History of Problem Co mmon bladder Spirit cancer - [facility] [id number] Lesion of Problem Com mon bladder Spirit - [facility] [id number] 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) [facility] [id number] [place] [address] 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 [facility] [id number] [place], [place] [id number] joint, Spirit knee, - [facility] right [facility] Constipati Constipati Problem C ommon on on Spirit [facility] Urinary Urinary Problem Common incontinen incontinen Sp kelsey ce ce [facility] [id number] Contusion Problem Co mmon [id number] of right Spirit knee, - [facility] initial [facility] [id number] Hypothyroi Problem Co mmon dism Spirit (acquired) [facility] [id number] Thoracic Problem Commo n aortic Spirit aneurysm - [facility] without [facility] [id number] PAD Problem Common (periphera Spirit l artery - [facility] disease) [facility] [id number] Essential Problem Comm on hypertensi Spirit on [facility] [id number] Benign Problem Common prostatic Spirit hyperplasi - [facility] a with [facility] urinary Medical tract Center symptoms, symptom details unspecifie d [id number] Mixed Problem Common hyperlipid Spirit emia - [facility] [id number] 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 Social History Social Habit Start Date Stop Date Quantity Comments Source History of Tobacco Use Co mmon Spirit [facility] Sex Assigned At Com mon [facility] Smoking Status Start Date Stop Date Source Never Smoker Common [facility] Medications Ordered Filled Start Stop Current Ordering Indication Dosage Frequency Signature Comments Components Source Medication Medication Date Date Medication? Clinician (SIG) Name Name Aime Salomon 2021-08 No 40mg Common (Triamcinol (Triamcinol 1-23 S pirit one) one) 00:00: - [facility] 00 [facility] Lidocaine Lidocaine 2021-08 No 10mg Com 09-13 Spirit 00:00: - [facility] Aime Salomon 2021-08 No 40mg Common (Triamcinol (Triamcinol 1-23 S pirit one) one) 00:00: - [facility] Lidocaine Lidocaine 2021-08 No 10mg Com 09-13 Spirit 00:00: - [facility] Aime Salomon 2021-08 No 40mg Common (Triamcinol (Triamcinol 1-23 S pirit one) one) 00:00: - [facility] Lidocaine Lidocaine 2021-08 No 10mg Com 09-13 Spirit 00:00: - [facility] Aime Salomon 2021-08 No 40mg Common (Triamcinol (Triamcinol 1-23 S pirit one) one) 00:00: - [facility] Lidocaine Lidocaine 2021- No 10mg Com 09-13 Spirit 00:00: - [facility] Aime Salomon 2021-08 No 40mg Common (Triamcinol (Triamcinol 1-23 S pirit one) one) 00:00: - [facility] Lidocaine Lidocaine 2021- No 10mg Com 09-13 Spirit 00:00: - [facility] Aime Salomon 2021-08 No 40mg Common (Triamcinol (Triamcinol 1-23 S pirit one) one) 00:00: - [facility] Lidocaine Lidocaine 2021- No 10mg Com 09-13 Spirit 00:00: - [facility] Aime Salomon 2021-08 No 40mg Common (Triamcinol (Triamcinol 1-23 S pirit one) one) 00:00: - [facility] Lidocaine Lidocaine 2021-1 No 10mg Com 09-13 Spirit 00:00: - [facility] Kenalog Kenalog 2021-08 No 40mg Common (Triamcinol (Triamcinol 1-23 S pirit one) one) 00:00: - [facility] Lidocaine Lidocaine 2021-08 No 10mg Com 09-13 Spirit 00:00: - [facility] Kenalog Kenalog 2021-08 No 40mg Common (Triamcinol (Triamcinol 1-23 S pirit one) one) 00:00: - [facility] Lidocaine Lidocaine 2021-08 No 10mg Com 09-13 Spirit 00:00: - [facility] Kenalog Kenalog 2021-08 No 40mg Common (Triamcinol (Triamcinol 1-23 S pirit one) one) 00:00: - [facility] Lidocaine Lidocaine 2021-08 No 10mg Com 09-13 Spirit 00:00: - [facility] traMADol-Ac traMADol-Ac 2021-08 No 2{table QID traMADol-A etaminophen etaminophen 1-21 ts_as_n cetaminoph 37.5-325 MG 37.5-325 MG 00:00: eeded} en 00 37.5-325 MG traMADol-Ac traMADol-Ac 2021-08 No 2{table QID traMADol-A etaminophen etaminophen 1-21 ts_as_n cetaminoph 37.5-325 MG 37.5-325 MG 00:00: eeded} en 00 37.5-325 MG traMADol-Ac traMADol-Ac 2021-08 No 2{table QID traMADol-A etaminophen etaminophen 1-21 ts_as_n cetaminoph 37.5-325 MG 37.5-325 MG 00:00: eeded} en 00 37.5-325 MG traMADol-Ac traMADol-Ac 2021-08 No 2{table QID traMADol-A etaminophen etaminophen 1-21 ts_as_n cetaminoph 37.5-325 MG 37.5-325 MG 00:00: eeded} en 00 37.5-325 MG traMADol-Ac traMADol-Ac 2021-08 No 2{table QID traMADol-A etaminophen etaminophen 1-21 ts_as_n cetaminoph 37.5-325 MG 37.5-325 MG 00:00: eeded} en 00 37.5-325 MG traMADol-Ac traMADol-Ac 2021-08 No 2{table QID traMADol-A etaminophen etaminophen 1-21 ts_as_n cetaminoph 37.5-325 MG 37.5-325 MG 00:00: eeded} en 00 37.5-325 MG traMADol-Ac traMADol-Ac 2021-08 No 2{table QID traMADol-A etaminophen etaminophen 1-21 ts_as_n cetaminoph 37.5-325 MG 37.5-325 MG 00:00: eeded} en 00 37.5-325 MG traMADol-Ac traMADol-Ac 2021-08 No 2{table QID traMADol-A etaminophen etaminophen 1-21 ts_as_n cetaminoph 37.5-325 MG 37.5-325 MG 00:00: eeded} en 00 37.5-325 MG traMADol-Ac traMADol-Ac 2021-08 No 2{table QID traMADol-A etaminophen etaminophen 1-21 ts_as_n cetaminoph 37.5-325 MG 37.5-325 MG 00:00: eeded} en 00 37.5-325 MG traMADol-Ac traMADol-Ac 2021-08 No 2{table QID traMADol-A etaminophen etaminophen 1-21 ts_as_n cetaminoph 37.5-325 MG 37.5-325 MG 00:00: eeded} en 00 37.5-325 MG traMADol-Ac traMADol-Ac 2021-08 No 2{table QID traMADol-A etaminophen etaminophen 1-21 ts_as_n cetaminoph 37.5-325 MG 37.5-325 MG 00:00: eeded} en 00 37.5-325 MG Acetaminoph Acetaminoph 2021-08 No 1{table QID Acetaminop en-Codeine en-Codeine 0-28 t_as_ne hen-Codein #3 300-30 #3 300-30 00:00: eded} e #3 MG MG 00 300-30 MG Acetaminoph Acetaminoph 2022-1 No 1{table QID Acetaminop en-Codeine en-Codeine 0-28 t_as_ne hen-Codein #3 300-30 #3 300-30 00:00: eded} e #3 MG MG 00 300-30 MG Acetaminoph Acetaminoph 2022-1 No 1{table QID Acetaminop en-Codeine en-Codeine 0-28 t_as_ne hen-Codein #3 300-30 #3 300-30 00:00: eded} e #3 MG MG 00 300-30 MG Acetaminoph Acetaminoph 2022-1 No 1{table QID Acetaminop en-Codeine en-Codeine 0-28 t_as_ne hen-Codein #3 300-30 #3 300-30 00:00: eded} e #3 MG MG 00 300-30 MG Acetaminoph Acetaminoph 2022-1 No 1{table QID Acetaminop en-Codeine en-Codeine 0-28 t_as_ne hen-Codein #3 300-30 #3 300-30 00:00: eded} e #3 MG MG 00 300-30 MG Acetaminoph Acetaminoph 2022-1 No 1{table QID Acetaminop en-Codeine en-Codeine 0-28 t_as_ne hen-Codein #3 300-30 #3 300-30 00:00: eded} e #3 MG MG 00 300-30 MG Acetaminoph Acetaminoph 2022-1 No 1{table QID Acetaminop en-Codeine en-Codeine 0-28 t_as_ne hen-Codein #3 300-30 #3 300-30 00:00: eded} e #3 MG MG 00 300-30 MG Acetaminoph Acetaminoph 2022-1 No 1{table QID Acetaminop en-Codeine en-Codeine 0-28 t_as_ne hen-Codein #3 300-30 #3 300-30 00:00: eded} e #3 MG MG 00 300-30 MG Acetaminoph Acetaminoph 2022-1 No 1{table QID Acetaminop en-Codeine en-Codeine 0-28 t_as_ne hen-Codein #3 300-30 #3 300-30 00:00: eded} e #3 MG MG 00 300-30 MG Acetaminoph Acetaminoph 2021-1 No 1{table QID Acetaminop en-Codeine en-Codeine 0-28 t_as_ne hen-Codein #3 300-30 #3 300-30 00:00: eded} e #3 MG MG 00 300-30 MG Acetaminoph Acetaminoph 2021-1 No 1{table QID Acetaminop en-Codeine en-Codeine 0-28 t_as_ne hen-Codein #3 300-30 #3 300-30 00:00: eded} e #3 MG MG 00 300-30 MG Acetaminoph Acetaminoph 2021-1 No 1{table QID Acetaminop en-Codeine en-Codeine 0-28 t_as_ne hen-Codein #3 300-30 #3 300-30 00:00: eded} e #3 MG MG 00 300-30 MG Acetaminoph Acetaminoph 2021-1 No 1{table QID Acetaminop en-Codeine en-Codeine 0-28 t_as_ne hen-Codein #3 300-30 #3 300-30 00:00: eded} e #3 MG MG 00 300-30 MG Acetaminoph Acetaminoph 2021-1 No 1{table QID Acetaminop en-Codeine en-Codeine 0-28 t_as_ne hen-Codein #3 300-30 #3 300-30 00:00: eded} e #3 MG MG 00 300-30 MG traMADol-Ac traMADol-Ac 2021-0 No 2{table traMADol-A etaminophen etaminophen 9-29 ts_as_n cetaminoph 37.5-325 MG 37.5-325 MG 00:00: eeded} en 00 37.5-325 MG traMADol-Ac traMADol-Ac 2021-0 No 2{table traMADol-A etaminophen etaminophen 9-29 ts_as_n cetaminoph 37.5-325 MG 37.5-325 MG 00:00: eeded} en 00 37.5-325 MG traMADol-Ac traMADol-Ac No 2{table traMADol-A etaminophen etaminophen 9-29 ts_as_n cetaminoph 37.5-325 MG 37.5-325 MG 00:00: eeded} en 00 37.5-325 MG traMADol-Ac traMADol-Ac No 2{table traMADol-A etaminophen etaminophen 9-29 ts_as_n cetaminoph 37.5-325 MG 37.5-325 MG 00:00: eeded} en 00 37.5-325 MG traMADol-Ac traMADol-Ac No 2{table traMADol-A etaminophen etaminophen 9-29 ts_as_n cetaminoph 37.5-325 MG 37.5-325 MG 00:00: eeded} en 00 37.5-325 MG traMADol-Ac traMADol-Ac No 2{table traMADol-A etaminophen etaminophen 9-29 ts_as_n cetaminoph 37.5-325 MG 37.5-325 MG 00:00: eeded} en 00 37.5-325 MG traMADol-Ac traMADol-Ac No 2{table traMADol-A etaminophen etaminophen 9-29 ts_as_n cetaminoph 37.5-325 MG 37.5-325 MG 00:00: eeded} en 00 37.5-325 MG traMADol-Ac traMADol-Ac No 2{table traMADol-A etaminophen etaminophen 9-29 ts_as_n cetaminoph 37.5-325 MG 37.5-325 MG 00:00: eeded} en 00 37.5-325 MG traMADol-Ac traMADol-Ac No 2{table traMADol-A etaminophen etaminophen 9-29 ts_as_n cetaminoph 37.5-325 MG 37.5-325 MG 00:00: eeded} en 00 37.5-325 MG traMADol-Ac traMADol-Ac No 2{table traMADol-A etaminophen etaminophen 9-29 ts_as_n cetaminoph 37.5-325 MG 37.5-325 MG 00:00: eeded} en 00 37.5-325 MG traMADol-Ac traMADol-Ac No 2{table traMADol-A etaminophen etaminophen 9-29 ts_as_n cetaminoph 37.5-325 MG 37.5-325 MG 00:00: eeded} en 00 37.5-325 MG traMADol-Ac traMADol-Ac No 2{table traMADol-A etaminophen etaminophen 9-29 ts_as_n cetaminoph 37.5-325 MG 37.5-325 MG 00:00: eeded} en 00 37.5-325 MG traMADol-Ac traMADol-Ac No 2{table traMADol-A etaminophen etaminophen 9-29 ts_as_n cetaminoph 37.5-325 MG 37.5-325 MG 00:00: eeded} en 00 37.5-325 MG traMADol-Ac traMADol-Ac No 2{table traMADol-A etaminophen etaminophen 9-29 ts_as_n cetaminoph 37.5-325 MG 37.5-325 MG 00:00: eeded} en 00 37.5-325 MG traMADol-Ac traMADol-Ac No 2{table traMADol-A etaminophen etaminophen 9-29 ts_as_n cetaminoph 37.5-325 MG 37.5-325 MG 00:00: eeded} en 00 37.5-325 MG traMADol-Ac traMADol-Ac No 2{table traMADol-A etaminophen etaminophen 9-29 ts_as_n cetaminoph 37.5-325 MG 37.5-325 MG 00:00: eeded} en 00 37.5-325 MG traMADol-Ac traMADol-Ac No 2{table traMADol-A etaminophen etaminophen 9-29 ts_as_n cetaminoph 37.5-325 MG 37.5-325 MG 00:00: eeded} en 00 37.5-325 MG traMADol-Ac traMADol-Ac No 2{table traMADol-A etaminophen etaminophen 9-29 ts_as_n cetaminoph 37.5-325 MG 37.5-325 MG 00:00: eeded} en 00 37.5-325 MG traMADol-Ac traMADol-Ac 2021-0 No 2{table traMADol-A etaminophen etaminophen -29 ts_as_n cetaminoph 37.5-325 MG 37.5-325 MG 00:00: eeded} en 00 37.5-325 MG traMADol-Ac traMADol-Ac 2021-0 No 2{table traMADol-A etaminophen etaminophen - ts_as_n cetaminoph 37.5-325 MG 37.5-325 MG 00:00: eeded} en 00 37.5-325 MG traMADol-Ac traMADol-Ac 2021- No 2{table traMADol-A etaminophen etaminophen - ts_as_n cetaminoph 37.5-325 MG 37.5-325 MG 00:00: eeded} en 00 37.5-325 MG Lidocaine Lidocaine 2-0 No 10mg Com 04-28 Spirit 00:00: - [facility] Kenalog Kenalog 2-0 No 40mg Common (Triamcinol (Triamcinol 9-07 S pirit one) one) 00:00: - [facility] Lidocaine Lidocaine 2-0 No 10mg Com 04-28 Spirit 00:00: - [facility] Kenalog Kenalog 2-0 No 40mg Common (Triamcinol (Triamcinol 9-07 S pirit one) one) 00:00: - [facility] Lidocaine Lidocaine 2-0 No 10mg Com 04-28 Spirit 00:00: - [facility] Kenalog Kenalog 2-0 No 40mg Common (Triamcinol (Triamcinol 9-07 S pirit one) one) 00:00: - [facility] Lidocaine Lidocaine 2022-0 No 10mg Com 04-28 Spirit 00:00: - [facility] Kenalog Kenalog 2-0 No 40mg Common (Triamcinol (Triamcinol 9-07 S pirit one) one) 00:00: - [facility] Lidocaine Lidocaine 2022-0 No 10mg Com 04-28 Spirit 00:00: - [facility] 00 [facility] Kenalog Kenalog 2-0 No 40mg Common (Triamcinol (Triamcinol 9-07 S pirit one) one) 00:00: - [facility] 00 [facility] Lidocaine Lidocaine 2022-0 No 10mg Com 04-28 Spirit 00:00: - [facility] 00 [facility] Kenalog Kenalog 2-0 No 40mg Common (Triamcinol (Triamcinol 9-07 S pirit one) one) 00:00: - [facility] 00 [facility] Lidocaine Lidocaine 2022-0 No 10mg Com 04-28 Spirit 00:00: - [facility] 00 [facility] Kenalog Kenalog 2-0 No 40mg Common (Triamcinol (Triamcinol 9-07 S pirit one) one) 00:00: - [facility] 00 [facility] Lidocaine Lidocaine 2022-0 No 10mg Com 04-28 Spirit 00:00: - [facility] 00 [facility] Kenalog Kenalog 2-0 No 40mg Common (Triamcinol (Triamcinol 9-07 S pirit one) one) 00:00: - [facility] 00 [facility] Lidocaine Lidocaine 2-0 No 10mg Com 04-28 Spirit 00:00: - [facility] 00 [facility] Kenalog Kenalog 2-0 No 40mg Common (Triamcinol (Triamcinol 9-07 S pirit one) one) 00:00: - [facility] 00 [facility] Lidocaine Lidocaine 2022-0 No 10mg Com 04-28 Spirit 00:00: - [facility] 00 [facility] Kenalog Kenalog 2022-0 No 40mg Common (Triamcinol (Triamcinol 9-07 S pirit one) one) 00:00: - [facility] 00 [facility] Lidocaine Lidocaine 2022-0 No 10mg Com 04-28 Spirit 00:00: - [facility] 00 [facility] Kenalog Kenalog 2022-0 No 40mg Common (Triamcinol (Triamcinol 9-07 S pirit one) one) 00:00: - [facility] 00 [facility] Lidocaine Lidocaine 2022-0 No 10mg Com 04-28 Spirit 00:00: - [facility] 00 [facility] Kenalog Kenalog 2-0 No 40mg Common (Triamcinol (Triamcinol 9-07 S pirit one) one) 00:00: - [facility] 00 [facility] Lidocaine Lidocaine 2022-0 No 10mg Com 04-28 Spirit 00:00: - [facility] 00 [facility] Kenalog Kenalog 2-0 No 40mg Common (Triamcinol (Triamcinol 9-07 S pirit one) one) 00:00: - [facility] 00 [facility] Lidocaine Lidocaine 2022-0 No 10mg Com 04-28 Spirit 00:00: - [facility] 00 [facility] Kenalog Kenalog 2-0 No 40mg Common (Triamcinol (Triamcinol 9-07 S pirit one) one) 00:00: - [facility] 00 [facility] Lidocaine Lidocaine 2022-0 No 10mg Com 04-28 Spirit 00:00: - [facility] 00 [facility] Kenalog Kenalog 2-0 No 40mg Common (Triamcinol (Triamcinol 9-07 S pirit one) one) 00:00: - [facility] 00 [facility] Lidocaine Lidocaine 2-0 No 10mg Com 04-28 Spirit 00:00: - [facility] 00 [facility] Kenalog Kenalog 2-0 No 40mg Common (Triamcinol (Triamcinol 9-07 S pirit one) one) 00:00: - [facility] 00 [facility] Lidocaine Lidocaine 2022-0 No 10mg Com 04-28 Spirit 00:00: - [facility] 00 [facility] Kenalog Kenalog 2022-0 No 40mg Common (Triamcinol (Triamcinol 9-07 S pirit one) one) 00:00: - [facility] 00 [facility] Lidocaine Lidocaine 2022-0 No 10mg Com 04-28 Spirit 00:00: - [facility] 00 [facility] Kenalog Kenalog 2022-0 No 40mg Common (Triamcinol (Triamcinol 9-07 S pirit one) one) 00:00: - [facility] 00 [facility] Lidocaine Lidocaine 2022-0 No 10mg Com 04-28 Spirit 00:00: - [facility] 00 [facility] Kenalog Kenalog 2-0 No 40mg Common (Triamcinol (Triamcinol 9-07 S pirit one) one) 00:00: - [facility] 00 [facility] Lidocaine Lidocaine 2022-0 No 10mg Com 04-28 Spirit 00:00: - [facility] 00 [facility] Kenalog Kenalog 2-0 No 40mg Common (Triamcinol (Triamcinol 9-07 S pirit one) one) 00:00: - [facility] 00 [facility] Lidocaine Lidocaine 2-0 No 10mg Com 04-28 Spirit 00:00: - [facility] 00 [facility] Kenalog Kenalog 2-0 No 40mg Common (Triamcinol (Triamcinol 9-07 S pirit one) one) 00:00: - [facility] 00 [facility] Lidocaine Lidocaine 2-0 No 10mg Com 04-28 Spirit 00:00: - [facility] 00 [facility] Kenalog Kenalog 2-0 No 40mg Common (Triamcinol (Triamcinol 9-07 S pirit one) one) 00:00: - [facility] 00 [facility] Lidocaine Lidocaine 2-0 No 10mg Com 04-28 [facility] 00:00: - [facility] 00 [facility] Kenalog Kenalog 2-0 No 40mg Common (Triamcinol (Triamcinol 9-07 S pirit one) one) 00:00: - [facility] 00 [facility] Lidocaine Lidocaine 2022-0 No 10mg Com 04-28 [facility] 00:00: - [facility] 00 [facility] Kenalog Kenalog 2022-0 No 40mg Common (Triamcinol (Triamcinol 9-07 S pirit one) one) 00:00: - [facility] 00 [facility] Lidocaine Lidocaine 2022-0 No 10mg Com 04-28 [facility] 00:00: - [facility] 00 [facility] Kenalog Kenalog 2022-0 No 40mg Common (Triamcinol (Triamcinol 9-07 S pirit one) one) 00:00: - [facility] 00 [facility] Lidocaine Lidocaine 2022-0 No 10mg Com mon 04-28 Spirit 00:00: - [facility] Kenalog Kenalog 2021-0 No 40mg Common (Triamcinol (Triamcinol 04-28 S pirit one) one) 00:00: - [facility] Hyalgan 20 Hyalgan 20 2021-0 No 20mg C ommon mg mg 02-24 Spirit 00:00: - [facility] [place] 20 Hyalgan 20 2021-0 No 20mg C ommon mg mg 02-24 Spirit 00:00: - [facility] [place] 20 Hyalgan 20 2021-0 No 20mg C ommon mg mg 02-24 Spirit 00:00: - [facility] [place] 20 Hyalgan 20 2021-0 No 20mg C ommon mg mg 02-24 [facility] 00:00: - [facility] [place] 20 Hyalgan 20 2021-0 No 20mg C ommon mg mg 02-24 [facility] 00:00: - [facility] [place] 20 Hyalgan 20 2021-0 No 20mg C ommon mg mg 02-24 [facility] 00:00: - [facility] [place] 20 Hyalgan 20 2021-0 No 20mg C ommon mg mg 02-24 [facility] 00:00: - [facility] [place] 20 Hyalgan 20 2021-0 No 20mg C ommon mg mg 02-24 [facility] 00:00: - [facility] [place] 20 Hyalgan 20 2021-0 No 20mg C ommon mg mg 02-24 [facility] 00:00: - [facility] [place] 20 Hyalgan 20 2021-0 No 20mg C ommon mg mg 02-24 [facility] 00:00: - [facility] [place] 20 Hyalgan 20 2021-0 No 20mg C ommon mg mg 02-24 [facility] 00:00: - [facility] [place] 20 Hyalgan 20 2021-0 No 20mg C ommon mg mg 02-24 [facility] 00:00: - [facility] [place] 20 Hyalgan 20 2021-0 No 20mg C ommon mg mg 02-24 [facility] 00:00: - [facility] [place] 20 Hyalgan 20 2021-0 No 20mg C ommon mg mg 02-24 [facility] 00:00: - [facility] [place] 20 Hyalgan 20 2021-0 No 20mg C ommon mg mg 02-24 [facility] 00:00: - [facility] [place] 20 Hyalgan 20 2021-0 No 20mg C ommon mg mg 02-24 [facility] 00:00: - [facility] [place] 20 Hyalgan 20 2021-0 No 20mg C ommon mg mg 02-24 [facility] 00:00: - [facility] [place] 20 Hyalgan 20 2021-0 No 20mg C ommon mg mg 02-24 [facility] 00:00: - [facility] [place] 20 Hyalgan 20 2021-0 No 20mg C ommon mg mg 02-24 [facility] 00:00: - [facility] [place] 20 Hyalgan 20 2021-0 No 20mg C ommon mg mg 02-24 [facility] 00:00: - [facility] [place] 20 Hyalgan 20 2021-0 No 20mg C ommon mg mg 02-24 [facility] 00:00: - [facility] [place] 20 Hyalgan 20 2021-0 No 20mg C ommon mg mg 02-24 [facility] 00:00: - [facility] [place] 20 Hyalgan 20 2021-0 No 20mg C ommon mg mg 02-24 [facility] 00:00: - [facility] [place] 20 Hyalgan 20 2021-0 No 20mg C ommon mg mg 02-24 [facility] 00:00: - [facility] [place] 20 Hyalgan 20 2-0 No 20mg C ommon mg mg 02-24 [facility] 00:00: - [facility] [place] 20 Hyalgan 20 2021-0 No 20mg C ommon mg mg 02-24 [facility] 00:00: - [facility] [place] 20 Hyalgan 20 2-0 No 20mg C ommon mg mg 02-24 [facility] 00:00: - [facility] [place] 20 Hyalgan 20 2022-0 No 20mg C ommon mg mg 02-24 [facility] 00:00: - [facility] [place] 20 Hyalgan 20 2021-0 No 20mg C ommon mg mg 02-24 [facility] 00:00: - [facility] [place] 20 Hyalgan 20 2021-0 No 20mg C ommon mg mg 02-24 [facility] 00:00: - [facility] [place] 20 Hyalgan 20 2021-0 No 20mg C ommon mg mg 02-24 [facility] 00:00: - [facility] [place] 20 Hyalgan 20 2021-0 No 20mg C ommon mg mg 02-24 [facility] 00:00: - [facility] [place] 20 Hyalgan 20 2021-0 No 20mg C ommon mg mg 02-24 [facility] 00:00: - [facility] [place] 20 Hyalgan 20 2021-0 No 20mg C ommon mg mg 02-24 [facility] 00:00: - [facility] [place] 20 Hyalgan 20 2021-0 No 20mg C ommon mg mg 02-24 [facility] 00:00: - [facility] [place] 20 Hyalgan 20 2021-0 No 20mg C ommon mg mg 02-15 [facility] 00:00: - [facility] [place] 20 Hyalgan 20 2021-0 No 20mg C ommon mg mg 02-15 [facility] 00:00: - [facility] Services Hyalgan 20 Hyalgan 20 2021-0 No 20mg C ommon mg mg 02-15 [facility]: - [facility] Hyalgan 20 Hyalgan 20 2021-0 No 20mg C ommon mg mg 02-15 [facility] 00:00: - [facility] Hyalgan 20 Hyalgan 20 2021-0 No 20mg C ommon mg mg 02-15 [facility] 00:00: - [facility] Hyalgan 20 Hyalgan 20 2021-0 No 20mg C ommon mg mg 02-15 [facility] 00:00: - [facility] Hyalgan 20 Hyalgan 20 2021-0 No 20mg C ommon mg mg 02-15 [facility] 00:00: - [facility] Hyalgan 20 Hyalgan 20 2022-0 No 20mg C ommon mg mg 02-15 [facility] 00:00: - [facility] Hyalgan 20 Hyalgan 20 2021-0 No 20mg C ommon mg mg 02-15 [facility] 00:00: - [facility] Hyalgan 20 Hyalgan 20 2021-0 No 20mg C ommon mg mg 02-15 [facility] 00:00: - [facility] Hyalgan 20 Hyalgan 20 2021-0 No 20mg C ommon mg mg 02-15 [facility] 00:00: - [facility] Hyalgan 20 Hyalgan 20 2021-0 No 20mg C ommon mg mg 02-15 [facility] 00:00: - [facility] Hyalgan 20 Hyalgan 20 2021-0 No 20mg C ommon mg mg 02-15 [facility] 00:00: - [facility] Hyalgan 20 Hyalgan 20 2021-0 No 20mg C ommon mg mg 02-15 [facility] 00:00: - [facility] Hyalgan 20 Hyalgan 20 2021-0 No 20mg C ommon mg mg 02-15 [facility] 00:00: - [facility] Hyalgan 20 Hyalgan 20 2021-0 No 20mg C ommon mg mg 02-15 [facility] 00:00: - [facility] Hyalgan 20 Hyalgan 20 2021-0 No 20mg C ommon mg mg 02-15 [facility] 00:00: - [facility] Hyalgan 20 Hyalgan 20 2021-0 No 20mg C ommon mg mg 02-15 [facility] 00:00: - [facility] Hyalgan 20 Hyalgan 20 2021-0 No 20mg C ommon mg mg 02-15 [facility] 00:00: - [facility] Hyalgan 20 Hyalgan 20 2021-0 No 20mg C ommon mg mg 02-15 [facility] 00:00: - [facility] Hyalgan 20 Hyalgan 20 2021-0 No 20mg C ommon mg mg 02-15 [facility] 00:00: - [facility] Hyalgan 20 Hyalgan 20 2021-0 No 20mg C ommon mg mg 02-15 [facility] 00:00: - [facility] Hyalgan 20 Hyalgan 20 2021-0 No 20mg C ommon mg mg 02-15 [facility] 00:00: - [facility] Hyalgan 20 Hyalgan 20 2021-0 No 20mg C ommon mg mg 02-15 [facility] 00:00: - [facility] Hyalgan 20 Hyalgan 20 2021-0 No 20mg C ommon mg mg 02-15 [facility] 00:00: - [facility] Hyalgan 20 Hyalgan 20 2021-0 No 20mg C ommon mg mg 02-15 [facility] 00:00: - [facility] Hyalgan 20 Hyalgan 20 2021-0 No 20mg C ommon mg mg 02-15 [facility] 00:00: - [facility] Hyalgan 20 Hyalgan 20 2021-0 No 20mg C ommon mg mg 02-15 [facility] 00:00: - [facility] Hyalgan 20 Hyalgan 20 2021-0 No 20mg C ommon mg mg 02-15 [facility] 00:00: - [facility] Hyalgan 20 Hyalgan 20 2021-0 No 20mg C ommon mg mg 02-15 [facility] 00:00: - [facility] Hyalgan 20 Hyalgan 20 2021-0 No 20mg C ommon mg mg 02-15 [facility] 00:00: - [facility] Hyalgan 20 Hyalgan 20 2021-0 No 20mg C ommon mg mg 02-15 [facility] 00:00: - [facility] Hyalgan 20 Hyalgan 20 2021-0 No 20mg C ommon mg mg 02-15 [facility] 00:00: - [facility] Hyalgan 20 Hyalgan 20 2021-0 No 20mg C ommon mg mg 02-15 [facility] 00:00: - [facility] Hyalgan 20 Hyalgan 20 2021-0 No 20mg C ommon mg mg 02-15 [facility] 00:00: - [facility] Hyalgan 20 Hyalgan 20 2021-0 No 20mg C ommon mg mg 02-15 [facility] 00:00: - [facility] Hyalgan 20 Hyalgan 20 2021-0 No 20mg C ommon mg mg 02-15 [facility] 00:00: - [facility] Hyalgan 20 Hyalgan 20 2021-0 No 20mg C ommon mg mg 02-08 [facility] 00:00: - [facility] Hyalgan 20 Hyalgan 20 2021-0 No 20mg C ommon mg mg 20 [facility] 00:00: - [facility] Hyalgan 20 Hyalgan 20 2021-0 No 20mg C ommon mg mg 20 [facility] 00:00: - [facility] Hyalgan 20 Hyalgan 20 2021-0 No 20mg C ommon mg mg 20 [facility] 00:00: - [facility] Hy[facility]gan 20 Hyalgan 20 2021-0 No 20mg C ommon mg mg 02-08 [facility] 00:00: - [facility] Hyalgan 20 Hyalgan 20 2021-0 No 20mg C ommon mg mg 20 [facility] 00:00: - [facility] Hyalgan 20 Hyalgan 20 2021-0 No 20mg C ommon mg mg 02-08 [facility] 00:00: - [facility] Hyalgan 20 Hyalgan 20 2021-0 No 20mg C ommon mg mg 02-08 [facility] 00:00: - [facility] Hyalgan 20 Hyalgan 20 2021-0 No 20mg C ommon mg mg 02-08 [facility] 00:00: - [facility] Hyalgan 20 Hyalgan 20 2021-0 No 20mg C ommon mg mg 20 [facility] 00:00: - [facility] Hyalgan 20 Hyalgan 20 2021-0 No 20mg C ommon mg mg 20 [facility] 00:00: - [facility] Hyalgan 20 Hyalgan 20 2021-0 No 20mg C ommon mg mg 20 [facility] 00:00: - [facility] Hyalgan 20 Hyalgan 20 2021-0 No 20mg C ommon mg mg 20 [facility] 00:00: - [facility] Hyalgan 20 Hyalgan 20 2021-0 No 20mg C ommon mg mg 20 [facility] 00:00: - [facility] Hy[facility] 20 Hyalgan 20 2021-0 No 20mg C ommon mg mg 6-20 [facility] 00:00: - [facility] Hy[facility] 20 Hyalgan 20 2021-0 No 20mg C ommon mg mg 620 [facility] 00:00: - [facility] Hyalgan 20 Hyalgan 20 2021-0 No 20mg C ommon mg mg 6-20 [facility] 00:00: - [facility] Hyalgan 20 Hyalgan 20 2021-0 No 20mg C ommon mg mg 6-20 [facility] 00:00: - [facility] Hyalgan 20 Hyalgan 20 2021-0 No 20mg C ommon mg mg 20 [facility] 00:00: - [facility] Hy[facility] 20 Hyalgan 20 2021-0 No 20mg C ommon mg mg 20 [facility] 00:00: - [facility] Hyalgan 20 Hyalgan 20 2021-0 No 20mg C ommon mg mg 20 [facility] 00:00: - [facility] Hyalgan 20 Hyalgan 20 2021-0 No 20mg C ommon mg mg 20 [facility] 00:00: - [facility] Hyal[facility] 20 Hyalgan 20 2021-0 No 20mg C ommon mg mg 02-08 [facility] 00:00: - [facility] Hyal[facility] 20 Hyalgan 20 2021-0 No 20mg C ommon mg mg 20 [facility] 00:00: - [facility] Hyalgan 20 Hyalgan 20 2021-0 No 20mg C ommon mg mg 20 [facility] 00:00: - [facility] Hy[facility] 20 Hyalgan 20 2021-0 No 20mg C ommon mg mg 620 [facility] 00:00: - [facility] Hyalgan 20 Hyalgan 20 2021-0 No 20mg C ommon mg mg 620 [facility] 00:00: - [facility] Hyalgan 20 Hyalgan 20 2021-0 No 20mg C ommon mg mg 6-20 [facility] 00:00: - [facility] Hyalgan 20 Hyalgan 20 2021-0 No 20mg C ommon mg mg 6-20 [facility] 00:00: - [facility] Hyalgan 20 Hyalgan 20 2-0 No 20mg C ommon mg mg 6-20 [facility] 00:00: - [facility] Hyal[facility] 20 Hyalgan 20 2-0 No 20mg C ommon mg mg 6-20 [facility] 00:00: - [facility] Hyalgan 20 Hyalgan 20 2-0 No 20mg C ommon mg mg 6-20 [facility] 00:00: - [facility] Hyalgan 20 Hyalgan 20 2-0 No 20mg C ommon mg mg 6-20 [facility] 00:00: - [facility] Hyalgan 20 Hyalgan 20 2-0 No 20mg C ommon mg mg 6-20 [facility] 00:00: - [facility] Hy[facility] 20 Hyalgan 20 2-0 No 20mg C ommon mg mg 6-20 [facility] 00:00: - [facility] Hyalgan 20 Hyalgan 20 2021-0 No 20mg C ommon mg mg 6-20 [facility] 00:00: - [facility] Hyalgan 20 Hyalgan 20 2021-0 No 20mg C ommon mg mg 6-20 [facility] 00:00: - [facility] Myrbetriq Myrbetriq 2-0 2022- No 1{table QD Myrbetriq 25 MG 25 MG 5-24 11-19 t} 25 MG 00:00: 00:00 00 :00 Myrbetriq Myrbetriq 2022-0 2022- No 1{table QD Myrbetriq 25 MG 25 MG 5-24 11-19 t} 25 MG 00:00: 00:00 00 :00 Myrbetriq Myrbetriq 2022-0 2022- No 1{table QD Myrbetriq 25 MG 25 MG 5-24 11-19 t} 25 MG 00:00: 00:00 00 :00 Myrbetriq Myrbetriq 2022-0 2022- No 1{table QD Myrbetriq 25 MG 25 MG 5-24 11-19 t} 25 MG 00:00: 00:00 00 :00 Myrbetriq Myrbetriq 2022-0 2022- No 1{table QD Myrbetriq 25 MG 25 MG 5-24 11-19 t} 25 MG 00:00: 00:00 00 :00 Myrbetriq Myrbetriq 2022-0 2022- No 1{table QD Myrbetriq 25 MG 25 MG 5-24 11-19 t} 25 MG 00:00: 00:00 00 :00 Myrbetriq Myrbetriq 2022-0 2022- No 1{table QD Myrbetriq 25 MG 25 MG 5-24 11-19 t} 25 MG 00:00: 00:00 00 :00 Myrbetriq Myrbetriq 2022-0 2022- No 1{table QD Myrbetriq 25 MG 25 MG 5-24 11-19 t} 25 MG 00:00: 00:00 00 :00 Myrbetriq Myrbetriq 2022-0 2022- No 1{table QD Myrbetriq 25 MG 25 MG 5-24 11-19 t} 25 MG 00:00: 00:00 00 :00 Myrbetriq Myrbetriq 2022-0 2022- No 1{table QD Myrbetriq 25 MG 25 MG 5-24 11-19 t} 25 MG 00:00: 00:00 00 :00 Myrbetriq Myrbetriq 2022-0 2022- No 1{table QD Myrbetriq 25 MG 25 MG 5-24 11-19 t} 25 MG 00:00: 00:00 00 :00 Myrbetriq Myrbetriq 2022-0 2022- No 1{table QD Myrbetriq 25 MG 25 MG 5-24 11-19 t} 25 MG 00:00: 00:00 00 :00 Myrbetriq Myrbetriq 2022-0 2022- No 1{table QD Myrbetriq 25 MG 25 MG 5-24 11-19 t} 25 MG 00:00: 00:00 00 :00 Myrbetriq Myrbetriq 2022-0 2022- No 1{table QD Myrbetriq 25 MG 25 MG 5-24 11-19 t} 25 MG 00:00: 00:00 00 :00 Myrbetriq Myrbetriq 2022-0 2022- No 1{table QD Myrbetriq 25 MG 25 MG 5-24 11-19 t} 25 MG 00:00: 00:00 00 :00 Myrbetriq Myrbetriq 2022-0 2022- No 1{table QD Myrbetriq 25 MG 25 MG 5-24 11-19 t} 25 MG 00:00: 00:00 00 :00 Myrbetriq Myrbetriq 2022-0 2022- No 1{table QD Myrbetriq 25 MG 25 MG 5-24 11-19 t} 25 MG 00:00: 00:00 00 :00 Myrbetriq Myrbetriq 2022-0 2022- No 1{table QD Myrbetriq 25 MG 25 MG 5-24 11-19 t} 25 MG 00:00: 00:00 00 :00 Myrbetriq Myrbetriq 2022-0 2022- No 1{table QD Myrbetriq 25 MG 25 MG 5-24 11-19 t} 25 MG 00:00: 00:00 00 :00 Myrbetriq Myrbetriq 2022-0 2022- No 1{table QD Myrbetriq 25 MG 25 MG 5-24 11-19 t} 25 MG 00:00: 00:00 00 :00 Myrbetriq Myrbetriq 2022-0 2022- No 1{table QD Myrbetriq 25 MG 25 MG 5-24 11-19 t} 25 MG 00:00: 00:00 00 :00 Myrbetriq Myrbetriq 2022-0 2022- No 1{table QD Myrbetriq 25 MG 25 MG 5-24 11-19 t} 25 MG 00:00: 00:00 00 :00 Myrbetriq Myrbetriq 2022-0 2022- No 1{table QD Myrbetriq 25 MG 25 MG 5-24 11-19 t} 25 MG 00:00: 00:00 00 :00 Myrbetriq Myrbetriq 2022-0 2022- No 1{table QD Myrbetriq 25 MG 25 MG 5-24 11-19 t} 25 MG 00:00: 00:00 00 :00 Myrbetriq Myrbetriq 2022-0 2022- No 1{table QD Myrbetriq 25 MG 25 MG 5-24 11-19 t} 25 MG 00:00: 00:00 00 :00 Myrbetriq Myrbetriq 2022-0 2022- No 1{table QD Myrbetriq 25 MG 25 MG 5-24 11-19 t} 25 MG 00:00: 00:00 00 :00 Myrbetriq Myrbetriq 2022-0 2022- No 1{table QD Myrbetriq 25 MG 25 MG 5-24 11-19 t} 25 MG 00:00: 00:00 00 :00 Myrbetriq Myrbetriq 2022-0 2022- No 1{table QD Myrbetriq 25 MG 25 MG 5-24 11-19 t} 25 MG 00:00: 00:00 00 :00 Myrbetriq Myrbetriq 2022-0 2022- No 1{table QD Myrbetriq 25 MG 25 MG 5-24 11-19 t} 25 MG 00:00: 00:00 00 :00 Myrbetriq Myrbetriq 2022-0 2022- No 1{table QD Myrbetriq 25 MG 25 MG 5-24 11-19 t} 25 MG 00:00: 00:00 00 :00 Myrbetriq Myrbetriq 2022-0 2022- No 1{table QD Myrbetriq 25 MG 25 MG 5-24 11-19 t} 25 MG 00:00: 00:00 00 :00 Myrbetriq Myrbetriq 2022-0 2022- No 1{table QD Myrbetriq 25 MG 25 MG 5-24 11-19 t} 25 MG 00:00: 00:00 00 :00 Myrbetriq Myrbetriq 2022-0 2022- No 1{table QD Myrbetriq 25 MG 25 MG 5-24 11-19 t} 25 MG 00:00: 00:00 00 :00 Myrbetriq Myrbetriq 2022-0 2022- No 1{table QD Myrbetriq 25 MG 25 MG 5-24 11-19 t} 25 MG 00:00: 00:00 00 :00 Myrbetriq Myrbetriq 2022-0 2022- No 1{table QD Myrbetriq 25 MG 25 MG 5-24 11-19 t} 25 MG 00:00: 00:00 00 :00 Myrbetriq Myrbetriq 2022-0 2022- No 1{table QD Myrbetriq 25 MG 25 MG 5-24 11-19 t} 25 MG 00:00: 00:00 00 :00 Myrbetriq Myrbetriq 2022-0 2022- No 1{table QD Myrbetriq 25 MG 25 MG 5-24 11-19 t} 25 MG 00:00: 00:00 00 :00 Myrbetriq Myrbetriq 2022-0 2022- No 1{table QD Myrbetriq 25 MG 25 MG 5-24 11-19 t} 25 MG 00:00: 00:00 00 :00 Myrbetriq Myrbetriq 2022-0 2022- No 1{table QD Myrbetriq 25 MG 25 MG 5-24 11-19 t} 25 MG 00:00: 00:00 00 :00 Myrbetriq Myrbetriq 2022-0 2022- No 1{table QD Myrbetriq 25 MG 25 MG 5-24 11-19 t} 25 MG 00:00: 00:00 00 :00 Myrbetriq Myrbetriq 2022-0 2022- No 1{table QD Myrbetriq 25 MG 25 MG 5-24 11-19 t} 25 MG 00:00: 00:00 00 :00 Myrbetriq Myrbetriq 2022-0 2022- No 1{table QD Myrbetriq 25 MG 25 MG 5-24 11-19 t} 25 MG 00:00: 00:00 00 :00 Myrbetriq Myrbetriq 2022-0 2022- No 1{table QD Myrbetriq 25 MG 25 MG 5-24 11-19 t} 25 MG 00:00: 00:00 00 :00 Myrbetriq Myrbetriq 2022-0 2022- No 1{table QD Myrbetriq 25 MG 25 MG 5-24 11-19 t} 25 MG 00:00: 00:00 00 :00 Myrbetriq Myrbetriq 2022-0 2022- No 1{table QD Myrbetriq 25 MG 25 MG 5-24 11-19 t} 25 MG 00:00: 00:00 00 :00 Myrbetriq Myrbetriq 2022-0 2022- No 1{table QD Myrbetriq 25 MG 25 MG 5-24 11-19 t} 25 MG 00:00: 00:00 00 :00 Myrbetriq Myrbetriq 2022-0 2022- No 1{table QD Myrbetriq 25 MG 25 MG 5-24 11-19 t} 25 MG 00:00: 00:00 00 :00 Myrbetriq Myrbetriq 2022-0 2022- No 1{table QD Myrbetriq 25 MG 25 MG 5-24 11-19 t} 25 MG 00:00: 00:00 00 :00 Myrbetriq Myrbetriq 2022-0 2022- No 1{table QD Myrbetriq 25 MG 25 MG 5-24 11-19 t} 25 MG 00:00: 00:00 00 :00 Myrbetriq Myrbetriq 2022-0 2022- No 1{table QD Myrbetriq 25 MG 25 MG 5-24 11-19 t} 25 MG 00:00: 00:00 00 :00 Myrbetriq Myrbetriq 2-0 2022- No 1{table QD Myrbetriq 25 MG 25 MG 5-24 11-19 t} 25 MG 00:00: 00:00 00 :00 Myrbetriq Myrbetriq 2022-0 2022- No 1{table QD Myrbetriq 25 MG 25 MG 5-24 11-19 t} 25 MG 00:00: 00:00 00 :00 Lactulose Lactulose 2022-0 2022- No 15{ml} Lactulose 10 GM/15ML 10 GM/15ML 12-23-09 10 GM/15ML 00:00: 00:00 00 :00 Lactulose Lactulose 2022-0 2022- No 15{ml} Lactulose 10 GM/15ML 10 GM/15ML 12-23-09 10 GM/15ML 00:00: 00:00 00 :00 Lidocaine Lidocaine 2-0 No 10mg Com mon 4-18 [facility] 00:00: - [facility] Kenalog Kenalog 2-0 No 40mg Common (Triamcinol (Triamcinol 4-18 S pirit one) one) 00:00: - [facility] Lidocaine Lidocaine 2-0 No 10mg Com mon 4-18 [facility] 00:00: - [facility] Kenalog Kenalog 2-0 No 40mg Common (Triamcinol (Triamcinol 4-18 S pirit one) one) 00:00: - [facility] Lidocaine Lidocaine 2-0 No 10mg Com mon 4-18 [facility] 00:00: - [facility] Kenalog Kenalog 2-0 No 40mg Common (Triamcinol (Triamcinol 4-18 S pirit one) one) 00:00: - [facility] Lidocaine Lidocaine 2-0 No 10mg Com mon 4-18 [facility] 00:00: - [facility] Kenalog Kenalog 2-0 No 40mg Common (Triamcinol (Triamcinol 4-18 S pirit one) one) 00:00: - [facility] Lidocaine Lidocaine 2-0 No 10mg Com mon 4-18 [facility] 00:00: - [facility] Kenalog Kenalog 2-0 No 40mg Common (Triamcinol (Triamcinol 4-18 S pirit one) one) 00:00: - [facility] Lidocaine Lidocaine 2-0 No 10mg Com mon 418 [facility] 00:00: - [facility] Kenalog Kenalog 2-0 No 40mg Common (Triamcinol (Triamcinol 4-18 S pirit one) one) 00:00: - [facility] Lidocaine Lidocaine 2-0 No 10mg Com tue 4-18 [facility] 00:00: - [facility] Kenalog Kenalog 2-0 No 40mg Common (Triamcinol (Triamcinol 4-18 S pirit one) one) 00:00: - [facility] Lidocaine Lidocaine 2-0 No 10mg Com mon 4-18 [facility] 00:00: - [facility] Kenalog Kenalog 2-0 No 40mg Common (Triamcinol (Triamcinol 4-18 S pirit one) one) 00:00: - [facility] Lidocaine Lidocaine 2022-0 No 10mg Com mon 4-18 [facility] 00:00: - [facility] Lidocaine Lidocaine 2022-0 No 10mg Com mon 4-18 [facility] 00:00: - [facility] Kenalog Kenalog 2-0 No 40mg Common (Triamcinol (Triamcinol 4-18 S pirit one) one) 00:00: - [facility] Kenalog Kenalog 2-0 No 40mg Common (Triamcinol (Triamcinol 4-18 S pirit one) one) 00:00: - [facility] Lidocaine Lidocaine 2-0 No 10mg Com mon 4-18 [facility] 00:00: - [facility] Kenalog Kenalog 2-0 No 40mg Common (Triamcinol (Triamcinol 4-18 S pirit one) one) 00:00: - [facility] Lidocaine Lidocaine 2-0 No 10mg Com mon 4-18 [facility] 00:00: - [facility] Kenalog Kenalog 2-0 No 40mg Common (Triamcinol (Triamcinol 4-18 S pirit one) one) 00:00: - [facility] Lidocaine Lidocaine 2-0 No 10mg Com mon 4-18 [facility] 00:00: - [facility] Kenalog Kenalog 2-0 No 40mg Common (Triamcinol (Triamcinol 4-18 S pirit one) one) 00:00: - [facility] Lidocaine Lidocaine 2-0 No 10mg Com mon 4-18 [facility] 00:00: - [facility] Kenalog Kenalog 2-0 No 40mg Common (Triamcinol (Triamcinol 4-18 S pirit one) one) 00:00: - [facility] Lidocaine Lidocaine 2-0 No 10mg Com mon 4-18 [facility] 00:00: - [facility] Kenalog Kenalog 2-0 No 40mg Common (Triamcinol (Triamcinol 4-18 S pirit one) one) 00:00: - [facility] Lidocaine Lidocaine 2-0 No 10mg Com mon 4-18 [facility] 00:00: - [facility] Kenalog Kenalog 2-0 No 40mg Common (Triamcinol (Triamcinol 4-18 S pirit one) one) 00:00: - [facility] Lidocaine Lidocaine 2022-0 No 10mg Com mon 4-18 [facility] 00:00: - [facility] Kenalog Kenalog 2-0 No 40mg Common (Triamcinol (Triamcinol 4-18 S pirit one) one) 00:00: - [facility] Lidocaine Lidocaine 2022-0 No 10mg Com mon 4-18 [facility] 00:00: - [facility] Kenalog Kenalog 2-0 No 40mg Common (Triamcinol (Triamcinol 4-18 S pirit one) one) 00:00: - [facility] Lidocaine Lidocaine 2-0 No 10mg Com mon 18 [facility] 00:00: - [facility] Kenalog Kenalog 2-0 No 40mg Common (Triamcinol (Triamcinol 4-18 S pirit one) one) 00:00: - [facility] Lidocaine Lidocaine 2-0 No 10mg Com mon 18 [facility] 00:00: - [facility] Lidocaine Lidocaine 2-0 No 10mg Com mon 18 [facility] 00:00: - [facility] Kenalog Kenalog 2-0 No 40mg Common (Triamcinol (Triamcinol 4-18 S pirit one) one) 00:00: - [facility] Kenalog Kenalog 2-0 No 40mg Common (Triamcinol (Triamcinol 4-18 S pirit one) one) 00:00: - [facility] Lidocaine Lidocaine 2022-0 No 10mg Com mon 18 [facility] 00:00: - [facility] Kenalog Kenalog 2-0 No 40mg Common (Triamcinol (Triamcinol 4-18 S pirit one) one) 00:00: - [facility] Lidocaine Lidocaine 2022-0 No 10mg Com mon 4-18 [facility] 00:00: - [facility] Kenalog Kenalog 2-0 No 40mg Common (Triamcinol (Triamcinol 4-18 S pirit one) one) 00:00: - [facility] Lidocaine Lidocaine 2-0 No 10mg Com mon -18 [facility] 00:00: - [facility] Kenalog Kenalog 2-0 No 40mg Common (Triamcinol (Triamcinol 4-18 S pirit one) one) 00:00: - [facility] Lidocaine Lidocaine 2-0 No 10mg Com mon 4-18 [facility] 00:00: - [facility] Kenalog Kenalog 2-0 No 40mg Common (Triamcinol (Triamcinol 4-18 S pirit one) one) 00:00: - [facility] Lidocaine Lidocaine 2-0 No 10mg Com mon 18 [facility] 00:00: - [facility] Kenalog Kenalog 2-0 No 40mg Common (Triamcinol (Triamcinol 4-18 S pirit one) one) 00:00: - [facility] Lidocaine Lidocaine 2-0 No 10mg Com mon 18 [facility] 00:00: - [facility] Kenalog Kenalog 2-0 No 40mg Common (Triamcinol (Triamcinol 4-18 S pirit one) one) 00:00: - [facility] Lidocaine Lidocaine 2-0 No 10mg Com mon 18 [facility] 00:00: - [facility] Kenalog Kenalog 2-0 No 40mg Common (Triamcinol (Triamcinol 4-18 S pirit one) one) 00:00: - [facility] Lidocaine Lidocaine 2-0 No 10mg Com mon 18 [facility] 00:00: - [facility] Kenalog Kenalog 2-0 No 40mg Common (Triamcinol (Triamcinol 4-18 S pirit one) one) 00:00: - [facility] Lidocaine Lidocaine 2-0 No 10mg Com mon 18 [facility] 00:00: - [facility] Kenalog Kenalog 2022-0 No 40mg Common (Triamcinol (Triamcinol 4-18 S pirit one) one) 00:00: - [facility] Lidocaine Lidocaine 2022-0 No 10mg Com mon 4-18 [facility] 00:00: - [facility] Kenalog Kenalog 2-0 No 40mg Common (Triamcinol (Triamcinol 4-18 S pirit one) one) 00:00: - [facility] Lidocaine Lidocaine 2-0 No 10mg Com mon 4-18 [facility] 00:00: - [facility] Kenalog Kenalog 2-0 No 40mg Common (Triamcinol (Triamcinol 4-18 S pirit one) one) 00:00: - [facility] Lidocaine Lidocaine 2-0 No 10mg Com mon -18 [facility] 00:00: - [facility] Kenalog Kenalog 2-0 No 40mg Common (Triamcinol (Triamcinol 4-18 S pirit one) one) 00:00: - [facility] Lidocaine Lidocaine 2-0 No 10mg Com mon 18 [facility] 00:00: - [facility] Kenalog Kenalog 2-0 No 40mg Common (Triamcinol (Triamcinol 4-18 S pirit one) one) 00:00: - [facility] Lidocaine Lidocaine 2-0 No 10mg Com mon 18 [facility] 00:00: - [facility] Kenalog Kenalog 2-0 No 40mg Common (Triamcinol (Triamcinol 4-18 S pirit one) one) 00:00: - [facility] Lidocaine Lidocaine 2-0 No 10mg Com mon 18 [facility] 00:00: - [facility] Kenalog Kenalog 2-0 No 40mg Common (Triamcinol (Triamcinol 4-18 S pirit one) one) 00:00: - [facility] Lidocaine Lidocaine 2-0 No 10mg Com mon 18 [facility] 00:00: - [facility] Kenalog Kenalog 2-0 No 40mg Common (Triamcinol (Triamcinol 4-18 S pirit one) one) 00:00: - [facility] Lidocaine Lidocaine 2022-0 No 10mg Com mon 18 [facility] 00:00: - [facility] Kenalog Kenalog 2-0 No 40mg Common (Triamcinol (Triamcinol 4-18 S pirit one) one) 00:00: - [facility] Lidocaine Lidocaine 2-0 No 10mg Com mon 12-07 [facility] 00:00: - [facility] Kenalog Kenalog 2-0 No 40mg Common (Triamcinol (Triamcinol 4-18 S pirit one) one) 00:00: - [facility] Lidocaine Lidocaine 2-0 No 10mg Com mon 12-07 [facility] 00:00: - [facility] Kenalog Kenalog 2-0 No 40mg Common (Triamcinol (Triamcinol 4-18 S pirit one) one) 00:00: - [facility] Myrbetriq Myrbetriq 2021-0 2022- No 1{table QD Myrbetriq 25 MG 25 MG 3-25 -21 t} 25 MG 00:00: 00:00 00 :00 Myrbetriq Myrbetriq 2-0 2022- No 1{table QD Myrbetriq 25 MG 25 MG 3-25 -21 t} 25 MG 00:00: 00:00 00 :00 Myrbetriq Myrbetriq 2-0 2022- No 1{table QD Myrbetriq 25 MG 25 MG 3-25 -21 t} 25 MG 00:00: 00:00 00 :00 Myrbetriq Myrbetriq 2-0 2022- No 1{table QD Myrbetriq 25 MG 25 MG 3-25 -21 t} 25 MG 00:00: 00:00 00 :00 Myrbetriq Myrbetriq 2-0 2022- No 1{table QD Myrbetriq 25 MG 25 MG 3-25 - t} 25 MG 00:00: 00:00 00 :00 Myrbetriq Myrbetriq 2-0 2022- No 1{table QD Myrbetriq 25 MG 25 MG 3-25 -21 t} 25 MG 00:00: 00:00 00 :00 Myrbetriq Myrbetriq 2022-0 2022- No 1{table QD Myrbetriq 25 MG 25 MG 3-25 - t} 25 MG 00:00: 00:00 00 :00 Myrbetriq Myrbetriq 2022-0 2022- No 1{table QD Myrbetriq 25 MG 25 MG 3-25 - t} 25 MG 00:00: 00:00 00 :00 Myrbetriq Myrbetriq 2022-0 2022- No 1{table QD Myrbetriq 25 MG 25 MG 3-25 - t} 25 MG 00:00: 00:00 00 :00 Myrbetriq Myrbetriq 2022-0 2022- No 1{table QD Myrbetriq 25 MG 25 MG 3-25 - t} 25 MG 00:00: 00:00 00 :00 Myrbetriq Myrbetriq 2022-0 2022- No 1{table QD Myrbetriq 25 MG 25 MG 3-25 - t} 25 MG 00:00: 00:00 00 :00 Myrbetriq Myrbetriq 2022-0 2022- No 1{table QD Myrbetriq 25 MG 25 MG 3-25 - t} 25 MG 00:00: 00:00 00 :00 Myrbetriq Myrbetriq 2022-0 2022- No 1{table QD Myrbetriq 25 MG 25 MG 3-25 - t} 25 MG 00:00: 00:00 00 :00 Myrbetriq Myrbetriq 2022-0 2022- No 1{table QD Myrbetriq 25 MG 25 MG 3-25 - t} 25 MG 00:00: 00:00 00 :00 Myrbetriq Myrbetriq 2022-0 2022- No 1{table QD Myrbetriq 25 MG 25 MG 3-25 - t} 25 MG 00:00: 00:00 00 :00 Myrbetriq Myrbetriq 2022-0 2022- No 1{table QD Myrbetriq 25 MG 25 MG 3-25 - t} 25 MG 00:00: 00:00 00 :00 Myrbetriq Myrbetriq 2022-0 2022- No 1{table QD Myrbetriq 25 MG 25 MG 11-13 t} 25 MG 00:00: 00:00 00 :00 Myrbetriq Myrbetriq 2-0 2022- No 1{table QD Myrbetriq 25 MG 25 MG 25 05-12 t} 25 MG 00:00: 00:00 00 :00 Cipro 500 Cipro 500 2-0 2022- No 1{table BID Cipro 500 MG MG 09-04 t} MG 00:00: 00:00 00 :00 Cipro 500 Cipro 500 2-0 2022- No 1{table BID MG MG 09-04 t} 00:00: 00:00 00 :00 Cipro 500 Cipro 500 2-0 2022- No 1{table BID Cipro 500 MG MG 09-04 t} MG 00:00: 00:00 00 :00 Cipro 500 Cipro 500 2-0 2022- No 1{table BID Cipro 500 MG MG 09-04 t} MG 00:00: 00:00 00 :00 Fexmid 7.5 Fexmid 7.5 2019-0 No 1{table TID Fexmid 7.5 MG MG 8-05 t_as_ne MG 00:00: eded} 00 Fexmid 7.5 Fexmid 7.5 2019-0 No 1{table TID Fexmid 7.5 MG MG 8-05 t_as_ne MG 00:00: eded} 00 Fexmid 7.5 Fexmid 7.5 2019-0 No 1{table TID Fexmid 7.5 MG MG 8-05 t_as_ne MG 00:00: eded} 00 Fexmid 7.5 Fexmid 7.5 2019-0 No 1{table TID Fexmid 7.5 MG MG 8-05 t_as_ne MG 00:00: eded} 00 Fexmid 7.5 Fexmid 7.5 2019-0 No 1{table TID Fexmid 7.5 MG MG 8-05 t_as_ne MG 00:00: eded} 00 Fexmid 7.5 Fexmid 7.5 2019-0 No 1{table TID Fexmid 7.5 MG MG 8-05 t_as_ne MG 00:00: eded} 00 Fexmid 7.5 Fexmid 7.5 2019-0 No 1{table TID Fexmid 7.5 MG MG 8-05 t_as_ne MG 00:00: eded} 00 Fexmid 7.5 Fexmid 7.5 2019-0 No 1{table TID Fexmid 7.5 MG MG 8-05 t_as_ne MG 00:00: eded} 00 Fexmid 7.5 Fexmid 7.5 2019-0 No 1{table TID Fexmid 7.5 MG MG 8-05 t_as_ne MG 00:00: eded} 00 Fexmid 7.5 Fexmid 7.5 2019-0 No 1{table TID Fexmid 7.5 MG MG 8-05 t_as_ne MG 00:00: eded} 00 Fexmid 7.5 Fexmid 7.5 2019-0 No 1{table TID Fexmid 7.5 MG MG 8-05 t_as_ne MG 00:00: eded} 00 Fexmid 7.5 Fexmid 7.5 2019-0 No 1{table TID Fexmid 7.5 MG MG 8-05 t_as_ne MG 00:00: eded} 00 Fexmid 7.5 Fexmid 7.5 2019-0 No 1{table TID Fexmid 7.5 MG MG 8-05 t_as_ne MG 00:00: eded} 00 Fexmid 7.5 Fexmid 7.5 2019-0 No 1{table TID Fexmid 7.5 MG MG 8-05 t_as_ne MG 00:00: eded} 00 Fexmid 7.5 Fexmid 7.5 2019-0 No 1{table TID Fexmid 7.5 MG MG 8-05 t_as_ne MG 00:00: eded} 00 Fexmid 7.5 Fexmid 7.5 2019-0 No 1{table TID Fexmid 7.5 MG MG 8-05 t_as_ne MG 00:00: eded} 00 Fexmid 7.5 Fexmid 7.5 2019-0 No 1{table TID Fexmid 7.5 MG MG 8-05 t_as_ne MG 00:00: eded} 00 Fexmid 7.5 Fexmid 7.5 2019-0 No 1{table TID Fexmid 7.5 MG MG 8-05 t_as_ne MG 00:00: eded} 00 Fexmid 7.5 Fexmid 7.5 2019-0 No 1{table TID Fexmid 7.5 MG MG 8-05 t_as_ne MG 00:00: eded} 00 Fexmid 7.5 Fexmid 7.5 2019-0 No 1{table TID Fexmid 7.5 MG MG 8-05 t_as_ne MG 00:00: eded} 00 Fexmid 7.5 Fexmid 7.5 2019-0 No 1{table TID Fexmid 7.5 MG MG 8-05 t_as_ne MG 00:00: eded} 00 Fexmid 7.5 Fexmid 7.5 2019-0 No 1{table TID Fexmid 7.5 MG MG 8-05 t_as_ne MG 00:00: eded} 00 Fexmid 7.5 Fexmid 7.5 2019-0 No 1{table TID Fexmid 7.5 MG MG 8-05 t_as_ne MG 00:00: eded} 00 Fexmid 7.5 Fexmid 7.5 2019-0 No 1{table TID Fexmid 7.5 MG MG 8-05 t_as_ne MG 00:00: eded} 00 Fexmid 7.5 Fexmid 7.5 2019-0 No 1{table TID Fexmid 7.5 MG MG 8-05 t_as_ne MG 00:00: eded} 00 Fexmid 7.5 Fexmid 7.5 2019-0 No 1{table TID Fexmid 7.5 MG MG 8-05 t_as_ne MG 00:00: eded} 00 Fexmid 7.5 Fexmid 7.5 2019-0 No 1{table TID Fexmid 7.5 MG MG 8-05 t_as_ne MG 00:00: eded} 00 Fexmid 7.5 Fexmid 7.5 2019-0 No 1{table TID Fexmid 7.5 MG MG 8-05 t_as_ne MG 00:00: eded} 00 Fexmid 7.5 Fexmid 7.5 2019-0 No 1{table TID Fexmid 7.5 MG MG 8-05 t_as_ne MG 00:00: eded} 00 Fexmid 7.5 Fexmid 7.5 2019-0 No 1{table TID Fexmid 7.5 MG MG 8-05 t_as_ne MG 00:00: eded} 00 Fexmid 7.5 Fexmid 7.5 2019-0 No 1{table TID Fexmid 7.5 MG MG 8-05 t_as_ne MG 00:00: eded} 00 Fexmid 7.5 Fexmid 7.5 2019-0 No 1{table TID Fexmid 7.5 MG MG 8-05 t_as_ne MG 00:00: eded} 00 Fexmid 7.5 Fexmid 7.5 2019-0 No 1{table TID MG MG 8-05 t_as_ne 00:00: eded} 00 Fexmid 7.5 Fexmid 7.5 2019-0 No 1{table TID Fexmid 7.5 MG MG 8-05 t_as_ne MG 00:00: eded} 00 Fexmid 7.5 Fexmid 7.5 2019-0 No 1{table TID Fexmid 7.5 MG MG 8-05 t_as_ne MG 00:00: eded} 00 Fexmid 7.5 Fexmid 7.5 2019-0 No 1{table TID Fexmid 7.5 MG MG 8-05 t_as_ne MG 00:00: eded} 00 Fexmid 7.5 Fexmid 7.5 2019-0 No 1{table TID MG MG 8-05 t_as_ne 00:00: eded} 00 Fexmid 7.5 Fexmid 7.5 2019-0 No 1{table TID Fexmid 7.5 MG MG 8-05 t_as_ne MG 00:00: eded} 00 Fexmid 7.5 Fexmid 7.5 2019-0 No 1{table TID Fexmid 7.5 MG MG 8-05 t_as_ne MG 00:00: eded} 00 Fexmid 7.5 Fexmid 7.5 2019-0 No 1{table TID Fexmid 7.5 MG MG 8-05 t_as_ne MG 00:00: eded} 00 Fexmid 7.5 Fexmid 7.5 2019-0 No 1{table TID Fexmid 7.5 MG MG 8-05 t_as_ne MG 00:00: eded} 00 Fexmid 7.5 Fexmid 7.5 2019-0 No 1{table TID MG MG 8-05 t_as_ne 00:00: eded} 00 Fexmid 7.5 Fexmid 7.5 2019-0 No 1{table TID MG MG 8-05 t_as_ne 00:00: eded} 00 Fexmid 7.5 Fexmid 7.5 2019-0 No 1{table TID Fexmid 7.5 MG MG 8-05 t_as_ne MG 00:00: eded} 00 Fexmid 7.5 Fexmid 7.5 2019-0 No 1{table TID Fexmid 7.5 MG MG 8-05 t_as_ne MG 00:00: eded} 00 Fexmid 7.5 Fexmid 7.5 2019-0 No 1{table TID Fexmid 7.5 MG MG 8-05 t_as_ne MG 00:00: eded} 00 Fexmid 7.5 Fexmid 7.5 2019-0 No 1{table TID Fexmid 7.5 MG MG 8-05 t_as_ne MG 00:00: eded} 00 Fexmid 7.5 Fexmid 7.5 2019-0 No 1{table TID Fexmid 7.5 MG MG 8-05 t_as_ne MG 00:00: eded} 00 Fexmid 7.5 Fexmid 7.5 2019-0 No 1{table TID Fexmid 7.5 MG MG 8-05 t_as_ne MG 00:00: eded} 00 Fexmid 7.5 Fexmid 7.5 2019-0 No 1{table TID Fexmid 7.5 MG MG 8-05 t_as_ne MG 00:00: eded} 00 Fexmid 7.5 Fexmid 7.5 No 1{table TID Fexmid 7.5 MG MG 8-05 t_as_ne MG 00:00: eded} 00 Fexmid 7.5 Fexmid 7.5 No 1{table TID Fexmid 7.5 MG MG 8-05 t_as_ne MG 00:00: eded} Fexmid 7.5 Fexmid 7.5 No 1{table TID Fexmid 7.5 MG MG 8-05 t_as_ne MG 00:00: eded} Fexmid 7.5 Fexmid 7.5 No 1{table TID Fexmid 7.5 MG MG 8-05 t_as_ne MG 00:00: eded} 00 CVS Aspirin CVS Aspirin No CVS Adult Low Adult Low Aspirin Dose 81 MG Dose 81 MG Adult Low Dose 81 MG Clopidogrel Clopidogrel No 1{table QD Clopidogre Bisulfate Bisulfate t} l 75 MG 75 MG Bisulfate 75 MG prednisoLON prednisoLON No QD prednisoLO E 5 MG E 5 MG NE 5 MG predniSONE predniSONE No 1{table QD predniSONE 10 MG 10 MG t} 10 MG Cholesterol Cholesterol No Cholestero l levoFLOXaci levoFLOXaci No levoFLOXac n 500 MG n 500 MG in 500 MG Vitamin C Vitamin C No Vitamin C CoQ10 CoQ10 No CoQ10 Ventolin Ventolin No Ventolin HFA HFA HFA Vitamin D3 Vitamin D3 No Vitamin D3 [id number] [id number] UNIT/GM UNIT/GM UNIT/GM Flonase Flonase No Flonase CoQ10 CoQ10 No CoQ10 Azelastine Azelastine No Azelastine HCl 0.1 % HCl 0.1 % HCl 0.1 % Bisoprolol- Bisoprolol- No Bisoprolol hydroCHLORO hydroCHLORO -hydroCHLO thiazide thiazide ROthiazide 2.5-6.25 MG 2.5-6.25 MG 2.5-6.25 MG Tumersaid Tumersaid No Tumersaid Testosteron Testosteron No Testostero e Cypionate e Cypionate ne 200 MG/ML 200 MG/ML Cypionate 200 MG/ML methylPREDN methylPREDN No methylPRED ISolone 4 ISolone 4 NISolone 4 MG MG MG Zinc 25 MG Zinc 25 MG No 1{table QD Zinc 25 MG t} Bisoprolol Bisoprolol No QD Bisoprolol Fumarate 5 Fumarate 5 Fumarate 5 MG MG MG Esomeprazol Esomeprazol No Esomeprazo e Magnesium e Magnesium le 20 MG 20 MG Magnesium 20 MG [facility] No 1{table QD [place] Thyroid 90 Thyroid 90 t_on_an Thyroid 90 MG MG _empty_ MG stomach } Testosteron Testosteron No Testostero e Cypionate e Cypionate ne 200 MG/ML 200 MG/ML Cypionate 200 MG/ML levoFLOXaci levoFLOXaci No levoFLOXac n 500 MG n 500 MG in 500 MG [facility] No 1{table QD [place] Thyroid 90 Thyroid 90 t_on_an Thyroid 90 MG MG _empty_ MG stomach } Vitamin D3 Vitamin D3 No Vitamin D3 [id number] UNIT/GM UNIT/GM UNIT/GM Esomeprazol Esomeprazol No Esomeprazo e Magnesium e Magnesium le 20 MG 20 MG Magnesium 20 MG prednisoLON prednisoLON No QD prednisoLO E 5 MG E 5 MG NE 5 MG Esomeprazol Esomeprazol No Esomeprazo e Magnesium e Magnesium le 20 MG 20 MG Magnesium 20 MG Cholesterol Cholesterol No Cholestero l Azelastine Azelastine No Azelastine HCl 0.1 % HCl 0.1 % HCl 0.1 % Albuterol Albuterol No Albuterol Sulfate HFA Sulfate HFA Sulfate 108 (90 108 (90 HFA 108 Base) Base) (90 Base) MCG/ACT MCG/ACT MCG/ACT Testosteron Testosteron No Testostero e Cypionate e Cypionate ne 200 MG/ML 200 MG/ML Cypionate 200 MG/ML methylPREDN methylPREDN No methylPRED ISolone 4 ISolone 4 NISolone 4 MG MG MG CVS Aspirin CVS Aspirin No CVS Adult Low Adult Low Aspirin Dose 81 MG Dose 81 MG Adult Low Dose 81 MG Flonase Flonase No Flonase Cyclobenzap Cyclobenzap No 1{table QD Cyclobenza rine HCl 10 rine HCl 10 t_at_be wayne HCl MG MG dtime_a 10 MG s_neede d} Bisoprolol- Bisoprolol- No Bisoprolol hydroCHLORO hydroCHLORO -hydroCHLO thiazide thiazide ROthiazide 2.5-6.25 MG 2.5-6.25 MG 2.5-6.25 MG Tumersaid Tumersaid No Tumersaid CoQ10 CoQ10 No CoQ10 Vitamin C Vitamin C No Vitamin C Zinc 25 MG Zinc 25 MG No 1{table QD Zinc 25 MG t} Ventolin Ventolin No Ventolin HFA HFA HFA Cyclobenzap Cyclobenzap No 1{table QD Cyclobenza rine HCl 10 rine HCl 10 t_at_be wayne HCl MG MG dtime_a 10 MG s_neede d} Clopidogrel Clopidogrel No 1{table QD Clopidogre Bisulfate Bisulfate t} l 75 MG 75 MG Bisulfate 75 MG predniSONE predniSONE No 1{table QD predniSONE 10 MG 10 MG t} 10 MG levoFLOXaci levoFLOXaci No levoFLOXac n 500 MG n 500 MG in 500 MG Clopidogrel Clopidogrel No 1{table QD Clopidogre Bisulfate Bisulfate t} l 75 MG 75 MG Bisulfate 75 MG Bisoprolol Bisoprolol No QD Bisoprolol Fumarate 5 Fumarate 5 Fumarate 5 MG MG MG prednisoLON prednisoLON No QD prednisoLO E 5 MG E 5 MG NE 5 MG Tumersaid Tumersaid No Tumersaid CoQ10 CoQ10 No CoQ10 Zinc 25 MG Zinc 25 MG No 1{table QD Zinc 25 MG t} Azelastine Azelastine No Azelastine HCl 0.1 % HCl 0.1 % HCl 0.1 % Vitamin D3 Vitamin D3 No Vitamin D3 [id number] UNIT/GM UNIT/GM UNIT/GM CVS Aspirin CVS Aspirin No CVS Adult Low Adult Low Aspirin Dose 81 MG Dose 81 MG Adult Low Dose 81 MG Albuterol Albuterol No Albuterol Sulfate HFA Sulfate HFA Sulfate 108 (90 108 (90 HFA 108 Base) Base) (90 Base) MCG/ACT MCG/ACT MCG/ACT Cholesterol Cholesterol No Cholestero l Azelastine Azelastine No Azelastine HCl 0.1 % HCl 0.1 % HCl 0.1 % Cyclobenzap Cyclobenzap No 1{table QD Cyclobenza rine HCl 10 rine HCl 10 t_at_be wayne HCl MG MG dtime_a 10 MG s_neede d} methylPREDN methylPREDN No methylPRED ISolone 4 ISolone 4 NISolone 4 MG MG MG Clopidogrel Clopidogrel No 1{table QD Clopidogre Bisulfate Bisulfate t} l 75 MG 75 MG Bisulfate 75 MG Vitamin C Vitamin C No Vitamin C Cholesterol Cholesterol No Cholestero l Bisoprolol- Bisoprolol- No Bisoprolol hydroCHLORO hydroCHLORO -hydroCHLO thiazide thiazide ROthiazide 2.5-6.25 MG 2.5-6.25 MG 2.5-6.25 MG prednisoLON prednisoLON No QD prednisoLO E 5 MG E 5 MG NE 5 MG predniSONE predniSONE No 1{table QD predniSONE 10 MG 10 MG t} 10 MG Bisoprolol Bisoprolol No QD Bisoprolol Fumarate 5 Fumarate 5 Fumarate 5 MG MG MG [facility]all No 1{table QD [place] Thyroid 90 Thyroid 90 t_on_an Thyroid 90 MG MG _empty_ MG stomach } Esomeprazol Esomeprazol No Esomeprazo e Magnesium e Magnesium le 20 MG 20 MG Magnesium 20 MG levoFLOXaci levoFLOXaci No levoFLOXac n 500 MG n 500 MG in 500 MG CVS Aspirin CVS Aspirin No CVS Adult Low Adult Low Aspirin Dose 81 MG Dose 81 MG Adult Low Dose 81 MG Testosteron Testosteron No Testostero e Cypionate e Cypionate ne 200 MG/ML 200 MG/ML Cypionate 200 MG/ML Flonase Flonase No Flonase Ventolin Ventolin No Ventolin HFA HFA HFA Testosteron Testosteron No Testostero e Cypionate e Cypionate ne 200 MG/ML 200 MG/ML Cypionate 200 MG/ML prednisoLON prednisoLON No QD prednisoLO E 5 MG E 5 MG NE 5 MG Ventolin Ventolin No Ventolin HFA HFA HFA Cyclobenzap Cyclobenzap No 1{table QD Cyclobenza rine HCl 10 rine HCl 10 t_at_be wayne HCl MG MG dtime_a 10 MG s_neede d} methylPREDN methylPREDN No methylPRED ISolone 4 ISolone 4 NISolone 4 MG MG MG Azelastine Azelastine No Azelastine HCl 0.1 % HCl 0.1 % HCl 0.1 % levoFLOXaci levoFLOXaci No levoFLOXac n 500 MG n 500 MG in 500 MG Cholesterol Cholesterol No Cholestero l Clopidogrel Clopidogrel No 1{table QD Clopidogre Bisulfate Bisulfate t} l 75 MG 75 MG Bisulfate 75 MG Flonase Flonase No Flonase Zinc 25 MG Zinc 25 MG No 1{table QD Zinc 25 MG t} Bisoprolol Bisoprolol No QD Bisoprolol Fumarate 5 Fumarate 5 Fumarate 5 MG MG MG [facility] Cr[facility]all No 1{table QD [place] Thyroid 90 Thyroid 90 t_on_an Thyroid 90 MG MG _empty_ MG stomach } Vitamin C Vitamin C No Vitamin C predniSONE predniSONE No 1{table QD predniSONE 10 MG 10 MG t} 10 MG CVS Aspirin CVS Aspirin No CVS Adult Low Adult Low Aspirin Dose 81 MG Dose 81 MG Adult Low Dose 81 MG Tumersaid Tumersaid No Tumersaid Bisoprolol- Bisoprolol- No Bisoprolol hydroCHLORO hydroCHLORO -hydroCHLO thiazide thiazide ROthiazide 2.5-6.25 MG 2.5-6.25 MG 2.5-6.25 MG Esomeprazol Esomeprazol No Esomeprazo e Magnesium e Magnesium le 20 MG 20 MG Magnesium 20 MG Albuterol Albuterol No Albuterol Sulfate HFA Sulfate HFA Sulfate 108 (90 108 (90 HFA 108 Base) Base) (90 Base) MCG/ACT MCG/ACT MCG/ACT Vitamin D3 Vitamin D3 No Vitamin D3 [id number] UNIT/GM UNIT/GM UNIT/GM CoQ10 CoQ10 No CoQ10 Zinc 25 MG Zinc 25 MG No 1{table QD Zinc 25 MG t} Cholesterol Cholesterol No Cholestero l Azelastine Azelastine No Azelastine HCl 0.1 % HCl 0.1 % HCl 0.1 % Albuterol Albuterol No Albuterol Sulfate HFA Sulfate HFA Sulfate 108 (90 108 (90 HFA 108 Base) Base) (90 Base) MCG/ACT MCG/ACT MCG/ACT Esomeprazol Esomeprazol No Esomeprazo e Magnesium e Magnesium le 20 MG 20 MG Magnesium 20 MG Tumersaid Tumersaid No Tumersaid Crandall Crandall No 1{table QD [place] Thyroid 90 Thyroid 90 t_on_an Thyroid 90 MG MG _empty_ MG stomach } Vitamin C Vitamin C No Vitamin C Testosteron Testosteron No Testostero e Cypionate e Cypionate ne 200 MG/ML 200 MG/ML Cypionate 200 MG/ML Ventolin Ventolin No Ventolin HFA HFA HFA Clopidogrel Clopidogrel No 1{table QD Clopidogre Bisulfate Bisulfate t} l 75 MG 75 MG Bisulfate 75 MG CoQ10 CoQ10 No CoQ10 Bisoprolol Bisoprolol No QD Bisoprolol Fumarate 5 Fumarate 5 Fumarate 5 MG MG MG Flonase Flonase No Flonase Vitamin D3 Vitamin D3 No Vitamin D3 [id number] UNIT/GM UNIT/GM UNIT/GM methylPREDN methylPREDN No methylPRED ISolone 4 ISolone 4 NISolone 4 MG MG MG prednisoLON prednisoLON No QD prednisoLO E 5 MG E 5 MG NE 5 MG Bisoprolol- Bisoprolol- No Bisoprolol hydroCHLORO hydroCHLORO -hydroCHLO thiazide thiazide ROthiazide 2.5-6.25 MG 2.5-6.25 MG 2.5-6.25 MG levoFLOXaci levoFLOXaci No levoFLOXac n 500 MG n 500 MG in 500 MG predniSONE predniSONE No 1{table QD predniSONE 10 MG 10 MG t} 10 MG Cyclobenzap Cyclobenzap No 1{table QD Cyclobenza rine HCl 10 rine HCl 10 t_at_be wayne HCl MG MG dtime_a 10 MG s_neede d} CVS Aspirin CVS Aspirin No CVS Adult Low Adult Low Aspirin Dose 81 MG Dose 81 MG Adult Low Dose 81 MG Zinc 25 MG Zinc 25 MG No 1{table QD Zinc 25 MG t} Cholesterol Cholesterol No Cholestero l Azelastine Azelastine No Azelastine HCl 0.1 % HCl 0.1 % HCl 0.1 % Albuterol Albuterol No Albuterol Sulfate HFA Sulfate HFA Sulfate 108 (90 108 (90 HFA 108 Base) Base) (90 Base) MCG/ACT MCG/ACT MCG/ACT Esomeprazol Esomeprazol No Esomeprazo e Magnesium e Magnesium le 20 MG 20 MG Magnesium 20 MG Tumersaid Tumersaid No Tumersaid Crandall Cr[facility]all No 1{table QD [place] Thyroid 90 Thyroid 90 t_on_an Thyroid 90 MG MG _empty_ MG stomach } Vitamin C Vitamin C No Vitamin C Testosteron Testosteron No Testostero e Cypionate e Cypionate ne 200 MG/ML 200 MG/ML Cypionate 200 MG/ML Ventolin Ventolin No Ventolin HFA HFA HFA Clopidogrel Clopidogrel No 1{table QD Clopidogre Bisulfate Bisulfate t} l 75 MG 75 MG Bisulfate 75 MG CoQ10 CoQ10 No CoQ10 Bisoprolol Bisoprolol No QD Bisoprolol Fumarate 5 Fumarate 5 Fumarate 5 MG MG MG Flonase Flonase No Flonase Vitamin D3 Vitamin D3 No Vitamin D3 [id number] UNIT/GM UNIT/GM UNIT/GM methylPREDN methylPREDN No methylPRED ISolone 4 ISolone 4 NISolone 4 MG MG MG prednisoLON prednisoLON No QD prednisoLO E 5 MG E 5 MG NE 5 MG Bisoprolol- Bisoprolol- No Bisoprolol hydroCHLORO hydroCHLORO -hydroCHLO thiazide thiazide ROthiazide 2.5-6.25 MG 2.5-6.25 MG 2.5-6.25 MG levoFLOXaci levoFLOXaci No levoFLOXac n 500 MG n 500 MG in 500 MG predniSONE predniSONE No 1{table QD predniSONE 10 MG 10 MG t} 10 MG Cyclobenzap Cyclobenzap No 1{table QD Cyclobenza rine HCl 10 rine HCl 10 t_at_be wayen HCl MG MG dtime_a 10 MG s_neede d} CVS Aspirin CVS Aspirin No CVS Adult Low Adult Low Aspirin Dose 81 MG Dose 81 MG Adult Low Dose 81 MG Zinc 25 MG Zinc 25 MG No 1{table QD Zinc 25 MG t} Cholesterol Cholesterol No Cholestero l Azelastine Azelastine No Azelastine HCl 0.1 % HCl 0.1 % HCl 0.1 % Albuterol Albuterol No Albuterol Sulfate HFA Sulfate HFA Sulfate 108 (90 108 (90 HFA 108 Base) Base) (90 Base) MCG/ACT MCG/ACT MCG/ACT Esomeprazol Esomeprazol No Esomeprazo e Magnesium e Magnesium le 20 MG 20 MG Magnesium 20 MG Tumersaid Tumersaid No Tumersaid Crandall Cr[facility]all No 1{table QD [place] Thyroid 90 Thyroid 90 t_on_an Thyroid 90 MG MG _empty_ MG stomach } Vitamin C Vitamin C No Vitamin C Testosteron Testosteron No Testostero e Cypionate e Cypionate ne 200 MG/ML 200 MG/ML Cypionate 200 MG/ML Ventolin Ventolin No Ventolin HFA HFA HFA Clopidogrel Clopidogrel No 1{table QD Clopidogre Bisulfate Bisulfate t} l 75 MG 75 MG Bisulfate 75 MG CoQ10 CoQ10 No CoQ10 Bisoprolol Bisoprolol No QD Bisoprolol Fumarate 5 Fumarate 5 Fumarate 5 MG MG MG Flonase Flonase No Flonase Vitamin D3 Vitamin D3 No Vitamin D3 [id number] UNIT/GM UNIT/GM UNIT/GM methylPREDN methylPREDN No methylPRED ISolone 4 ISolone 4 NISolone 4 MG MG MG prednisoLON prednisoLON No QD prednisoLO E 5 MG E 5 MG NE 5 MG [facility]all No 1{table QD [place] Thyroid 90 Thyroid 90 t_on_an Thyroid 90 MG MG _empty_ MG stomach } Bisoprolol- Bisoprolol- No Bisoprolol hydroCHLORO hydroCHLORO -hydroCHLO thiazide thiazide ROthiazide 2.5-6.25 MG 2.5-6.25 MG 2.5-6.25 MG levoFLOXaci levoFLOXaci No levoFLOXac n 500 MG n 500 MG in 500 MG predniSONE predniSONE No 1{table QD predniSONE 10 MG 10 MG t} 10 MG Cyclobenzap Cyclobenzap No 1{table QD Cyclobenza rine HCl 10 rine HCl 10 t_at_be wayne HCl MG MG dtime_a 10 MG s_neede d} CVS Aspirin CVS Aspirin No CVS Adult Low Adult Low Aspirin Dose 81 MG Dose 81 MG Adult Low Dose 81 MG Flonase Flonase No Flonase Zinc 25 MG Zinc 25 MG No 1{table QD Zinc 25 MG t} Esomeprazol Esomeprazol No Esomeprazo e Magnesium e Magnesium le 20 MG 20 MG Magnesium 20 MG Tumersaid Tumersaid No Tumersaid Crandall [facility] No 1{table QD [place] Thyroid 90 Thyroid 90 t_on_an Thyroid 90 MG MG _empty_ MG stomach } Albuterol Albuterol No Albuterol Sulfate HFA Sulfate HFA Sulfate 108 (90 108 (90 HFA 108 Base) Base) (90 Base) MCG/ACT MCG/ACT MCG/ACT Vitamin D3 Vitamin D3 No Vitamin D3 [id number] UNIT/GM UNIT/GM UNIT/GM prednisoLON prednisoLON No QD prednisoLO E 5 MG E 5 MG NE 5 MG Azelastine Azelastine No Azelastine HCl 0.1 % HCl 0.1 % HCl 0.1 % CoQ10 CoQ10 No CoQ10 Cyclobenzap Cyclobenzap No 1{table QD Cyclobenza rine HCl 10 rine HCl 10 t_at_be wayne HCl MG MG dtime_a 10 MG s_neede d} Testosteron Testosteron No Testostero e Cypionate e Cypionate ne 200 MG/ML 200 MG/ML Cypionate 200 MG/ML predniSONE predniSONE No 1{table QD predniSONE 10 MG 10 MG t} 10 MG methylPREDN methylPREDN No methylPRED ISolone 4 ISolone 4 NISolone 4 MG MG MG Cholesterol Cholesterol No Cholestero l levoFLOXaci levoFLOXaci No levoFLOXac n 500 MG n 500 MG in 500 MG CVS Aspirin CVS Aspirin No CVS Adult Low Adult Low Aspirin Dose 81 MG Dose 81 MG Adult Low Dose 81 MG Bisoprolol Bisoprolol No QD Bisoprolol Fumarate 5 Fumarate 5 Fumarate 5 MG MG MG Esomeprazol Esomeprazol No Esomeprazo e Magnesium e Magnesium le 20 MG 20 MG Magnesium 20 MG Tumersaid Tumersaid No Tumersaid Clopidogrel Clopidogrel No 1{table QD Clopidogre Bisulfate Bisulfate t} l 75 MG 75 MG Bisulfate 75 MG Ventolin Ventolin No Ventolin HFA HFA HFA Flonase Flonase No Flonase Bisoprolol- Bisoprolol- No Bisoprolol hydroCHLORO hydroCHLORO -hydroCHLO thiazide thiazide ROthiazide 2.5-6.25 MG 2.5-6.25 MG 2.5-6.25 MG Testosteron Testosteron No Testostero e Cypionate e Cypionate ne 200 MG/ML 200 MG/ML Cypionate 200 MG/ML Vitamin C Vitamin C No Vitamin C Bisoprolol Bisoprolol No QD Bisoprolol Fumarate 5 Fumarate 5 Fumarate 5 MG MG MG Vitamin C Vitamin C No Vitamin C Zinc 25 MG Zinc 25 MG No 1{table QD Zinc 25 MG t} Tumersaid Tumersaid No Tumersaid Crandall Crandall No 1{table QD Crandall Thyroid 90 Thyroid 90 t_on_an Thyroid 90 MG MG _empty_ MG stomach } Albuterol Albuterol No Albuterol Sulfate HFA Sulfate HFA Sulfate 108 (90 108 (90 HFA 108 Base) Base) (90 Base) MCG/ACT MCG/ACT MCG/ACT Vitamin D3 Vitamin D3 No Vitamin D3 [id number] UNIT/GM UNIT/GM UNIT/GM prednisoLON prednisoLON No QD prednisoLO E 5 MG E 5 MG NE 5 MG Ventolin Ventolin No Ventolin HFA HFA HFA Azelastine Azelastine No Azelastine HCl 0.1 % HCl 0.1 % HCl 0.1 % CoQ10 CoQ10 No CoQ10 Cyclobenzap Cyclobenzap No 1{table QD Cyclobenza rine HCl 10 rine HCl 10 t_at_be wayne HCl MG MG dtime_a 10 MG s_neede d} predniSONE predniSONE No 1{table QD predniSONE 10 MG 10 MG t} 10 MG methylPREDN methylPREDN No methylPRED ISolone 4 ISolone 4 NISolone 4 MG MG MG Cholesterol Cholesterol No Cholestero l levoFLOXaci levoFLOXaci No levoFLOXac n 500 MG n 500 MG in 500 MG CVS Aspirin CVS Aspirin No CVS Adult Low Adult Low Aspirin Dose 81 MG Dose 81 MG Adult Low Dose 81 MG Bisoprolol Bisoprolol No QD Bisoprolol Fumarate 5 Fumarate 5 Fumarate 5 MG MG MG Esomeprazol Esomeprazol No Esomeprazo e Magnesium e Magnesium le 20 MG 20 MG Magnesium 20 MG Clopidogrel Clopidogrel No 1{table QD Clopidogre Bisulfate Bisulfate t} l 75 MG 75 MG Bisulfate 75 MG Ventolin Ventolin No Ventolin HFA HFA HFA Flonase Flonase No Flonase Bisoprolol- Bisoprolol- No Bisoprolol hydroCHLORO hydroCHLORO -hydroCHLO thiazide thiazide ROthiazide 2.5-6.25 MG 2.5-6.25 MG 2.5-6.25 MG Testosteron Testosteron No Testostero e Cypionate e Cypionate ne 200 MG/ML 200 MG/ML Cypionate 200 MG/ML Bisoprolol- Bisoprolol- No Bisoprolol hydroCHLORO hydroCHLORO -hydroCHLO thiazide thiazide ROthiazide 2.5-6.25 MG 2.5-6.25 MG 2.5-6.25 MG Vitamin C Vitamin C No Vitamin C Albuterol Albuterol No Albuterol Sulfate HFA Sulfate HFA Sulfate 108 (90 108 (90 HFA 108 Base) Base) (90 Base) MCG/ACT MCG/ACT MCG/ACT Vitamin D3 Vitamin D3 No Vitamin D3 [id number] UNIT/GM UNIT/GM UNIT/GM Crandall Crandall No 1{table QD Crandall Thyroid 90 Thyroid 90 t_on_an Thyroid 90 MG MG _empty_ MG stomach } Flonase Flonase No Flonase CVS Aspirin CVS Aspirin No CVS Adult Low Adult Low Aspirin Dose 81 MG Dose 81 MG Adult Low Dose 81 MG Azelastine Azelastine No Azelastine HCl 0.1 % HCl 0.1 % HCl 0.1 % Esomeprazol Esomeprazol No Esomeprazo e Magnesium e Magnesium le 20 MG 20 MG Magnesium 20 MG Vitamin C Vitamin C No Vitamin C CoQ10 CoQ10 No CoQ10 prednisoLON prednisoLON No QD prednisoLO E 5 MG E 5 MG NE 5 MG Albuterol Albuterol No Albuterol Sulfate HFA Sulfate HFA Sulfate 108 (90 108 (90 HFA 108 Base) Base) (90 Base) MCG/ACT MCG/ACT MCG/ACT methylPREDN methylPREDN No methylPRED ISolone 4 ISolone 4 NISolone 4 MG MG MG Cholesterol Cholesterol No Cholestero l Cyclobenzap Cyclobenzap No 1{table QD Cyclobenza rine HCl 10 rine HCl 10 t_at_be wayne HCl MG MG dtime_a 10 MG s_neede d} methylPREDN methylPREDN No methylPRED ISolone 4 ISolone 4 NISolone 4 MG MG MG Zinc 25 MG Zinc 25 MG No 1{table QD Zinc 25 MG t} Tumersaid Tumersaid No Tumersaid Bisoprolol- Bisoprolol- No Bisoprolol hydroCHLORO hydroCHLORO -hydroCHLO thiazide thiazide ROthiazide 2.5-6.25 MG 2.5-6.25 MG 2.5-6.25 MG predniSONE predniSONE No 1{table QD predniSONE 10 MG 10 MG t} 10 MG levoFLOXaci levoFLOXaci No levoFLOXac n 500 MG n 500 MG in 500 MG Ventolin Ventolin No Ventolin HFA HFA HFA Testosteron Testosteron No Testostero e Cypionate e Cypionate ne 200 MG/ML 200 MG/ML Cypionate 200 MG/ML Bisoprolol Bisoprolol No QD Bisoprolol Fumarate 5 Fumarate 5 Fumarate 5 MG MG MG Clopidogrel Clopidogrel No 1{table QD Clopidogre Bisulfate Bisulfate t} l 75 MG 75 MG Bisulfate 75 MG CoQ10 CoQ10 No CoQ10 predniSONE predniSONE No 1{table QD predniSONE 10 MG 10 MG t} 10 MG Albuterol Albuterol No Albuterol Sulfate HFA Sulfate HFA Sulfate 108 (90 108 (90 HFA 108 Base) Base) (90 Base) MCG/ACT MCG/ACT MCG/ACT Cholesterol Cholesterol No Cholestero l Azelastine Azelastine No Azelastine HCl 0.1 % HCl 0.1 % HCl 0.1 % Vitamin D3 Vitamin D3 No Vitamin D3 [id number] UNIT/GM UNIT/GM UNIT/GM predniSONE predniSONE No 1{table QD predniSONE 10 MG 10 MG t} 10 MG Amoxicillin Amoxicillin No Amoxicilli 400 MG/5ML 400 MG/5ML n 400 MG/5ML prednisoLON prednisoLON No QD prednisoLO E 5 MG E 5 MG NE 5 MG CVS Aspirin CVS Aspirin No CVS Adult Low Adult Low Aspirin Dose 81 MG Dose 81 MG Adult Low Dose 81 MG CoQ10 CoQ10 No CoQ10 Cyclobenzap Cyclobenzap No 1{table QD Cyclobenza rine HCl 10 rine HCl 10 t_at_be wayne HCl MG MG dtime_a 10 MG s_neede d} Vitamin C Vitamin C No Vitamin C Testosteron Testosteron No Testostero e Cypionate e Cypionate ne 200 MG/ML 200 MG/ML Cypionate 200 MG/ML Tumersaid Tumersaid No Tumersaid Vitamin D3 Vitamin D3 No Vitamin D3 [id number] UNIT/GM UNIT/GM UNIT/GM Bisoprolol- Bisoprolol- No Bisoprolol hydroCHLORO hydroCHLORO -hydroCHLO thiazide thiazide ROthiazide 2.5-6.25 MG 2.5-6.25 MG 2.5-6.25 MG Esomeprazol Esomeprazol No Esomeprazo e Magnesium e Magnesium le 20 MG 20 MG Magnesium 20 MG Ventolin Ventolin No Ventolin HFA HFA HFA Zinc 25 MG Zinc 25 MG No 1{table QD Zinc 25 MG t} Crandall Crandall No 1{table QD Crandall Thyroid 90 Thyroid 90 t_on_an Thyroid 90 MG MG _empty_ MG stomach } Flonase Flonase No Flonase Clopidogrel Clopidogrel No 1{table QD Clopidogre Bisulfate Bisulfate t} l 75 MG 75 MG Bisulfate 75 MG levoFLOXaci levoFLOXaci No levoFLOXac n 500 MG n 500 MG in 500 MG methylPREDN methylPREDN No methylPRED ISolone 4 ISolone 4 NISolone 4 MG MG MG Bisoprolol Bisoprolol No QD Bisoprolol Fumarate 5 Fumarate 5 Fumarate 5 MG MG MG levoFLOXaci levoFLOXaci No levoFLOXac n 500 MG n 500 MG in 500 MG Zinc 25 MG Zinc 25 MG No 1{table QD Zinc 25 MG t} Albuterol Albuterol No Albuterol Sulfate HFA Sulfate HFA Sulfate 108 (90 108 (90 HFA 108 Base) Base) (90 Base) MCG/ACT MCG/ACT MCG/ACT Cholesterol Cholesterol No Cholestero l Azelastine Azelastine No Azelastine HCl 0.1 % HCl 0.1 % HCl 0.1 % predniSONE predniSONE No 1{table QD predniSONE 10 MG 10 MG t} 10 MG Cyclobenzap Cyclobenzap No 1{table QD Cyclobenza rine HCl 10 rine HCl 10 t_at_be wayne HCl MG MG dtime_a 10 MG s_neede d} Amoxicillin Amoxicillin No Amoxicilli 400 MG/5ML 400 MG/5ML n 400 MG/5ML prednisoLON prednisoLON No QD prednisoLO E 5 MG E 5 MG NE 5 MG CVS Aspirin CVS Aspirin No CVS Adult Low Adult Low Aspirin Dose 81 MG Dose 81 MG Adult Low Dose 81 MG CoQ10 CoQ10 No CoQ10 Cyclobenzap Cyclobenzap No 1{table QD Cyclobenza rine HCl 10 rine HCl 10 t_at_be wayne HCl MG MG dtime_a 10 MG s_neede d} Vitamin C Vitamin C No Vitamin C Testosteron Testosteron No Testostero e Cypionate e Cypionate ne 200 MG/ML 200 MG/ML Cypionate 200 MG/ML Tumersaid Tumersaid No Tumersaid Clopidogrel Clopidogrel No 1{table QD Clopidogre Bisulfate Bisulfate t} l 75 MG 75 MG Bisulfate 75 MG Vitamin D3 Vitamin D3 No Vitamin D3 [id number] UNIT/GM UNIT/GM UNIT/GM Bisoprolol- Bisoprolol- No Bisoprolol hydroCHLORO hydroCHLORO -hydroCHLO thiazide thiazide ROthiazide 2.5-6.25 MG 2.5-6.25 MG 2.5-6.25 MG Esomeprazol Esomeprazol No Esomeprazo e Magnesium e Magnesium le 20 MG 20 MG Magnesium 20 MG Ventolin Ventolin No Ventolin HFA HFA HFA Zinc 25 MG Zinc 25 MG No 1{table QD Zinc 25 MG t} Crandall Crandall No 1{table QD Crandall Thyroid 90 Thyroid 90 t_on_an Thyroid 90 MG MG _empty_ MG stomach } Flonase Flonase No Flonase Clopidogrel Clopidogrel No 1{table QD Clopidogre Bisulfate Bisulfate t} l 75 MG 75 MG Bisulfate 75 MG prednisoLON prednisoLON No QD prednisoLO E 5 MG E 5 MG NE 5 MG levoFLOXaci levoFLOXaci No levoFLOXac n 500 MG n 500 MG in 500 MG methylPREDN methylPREDN No methylPRED ISolone 4 ISolone 4 NISolone 4 MG MG MG Bisoprolol Bisoprolol No QD Bisoprolol Fumarate 5 Fumarate 5 Fumarate 5 MG MG MG Azelastine Azelastine No Azelastine HCl 0.1 % HCl 0.1 % HCl 0.1 % Cholesterol Cholesterol No Cholestero l Albuterol Albuterol No Albuterol Sulfate HFA Sulfate HFA Sulfate 108 (90 108 (90 HFA 108 Base) Base) (90 Base) MCG/ACT MCG/ACT MCG/ACT Cholesterol Cholesterol No Cholestero l Azelastine Azelastine No Azelastine HCl 0.1 % HCl 0.1 % HCl 0.1 % predniSONE predniSONE No 1{table QD predniSONE 10 MG 10 MG t} 10 MG Amoxicillin Amoxicillin No Amoxicilli 400 MG/5ML 400 MG/5ML n 400 MG/5ML CVS Aspirin CVS Aspirin No CVS Adult Low Adult Low Aspirin Dose 81 MG Dose 81 MG Adult Low Dose 81 MG prednisoLON prednisoLON No QD prednisoLO E 5 MG E 5 MG NE 5 MG CVS Aspirin CVS Aspirin No CVS Adult Low Adult Low Aspirin Dose 81 MG Dose 81 MG Adult Low Dose 81 MG CoQ10 CoQ10 No CoQ10 Cyclobenzap Cyclobenzap No 1{table QD Cyclobenza rine HCl 10 rine HCl 10 t_at_be wayne HCl MG MG dtime_a 10 MG s_neede d} Vitamin C Vitamin C No Vitamin C Testosteron Testosteron No Testostero e Cypionate e Cypionate ne 200 MG/ML 200 MG/ML Cypionate 200 MG/ML Tumersaid Tumersaid No Tumersaid Vitamin D3 Vitamin D3 No Vitamin D3 [id number] UNIT/GM UNIT/GM UNIT/GM Bisoprolol- Bisoprolol- No Bisoprolol hydroCHLORO hydroCHLORO -hydroCHLO thiazide thiazide ROthiazide 2.5-6.25 MG 2.5-6.25 MG 2.5-6.25 MG Esomeprazol Esomeprazol No Esomeprazo e Magnesium e Magnesium le 20 MG 20 MG Magnesium 20 MG Ventolin Ventolin No Ventolin HFA HFA HFA Zinc 25 MG Zinc 25 MG No 1{table QD Zinc 25 MG t} Augustus Coffman No 1{table QD Crandall Thyroid 90 Thyroid 90 t_on_an Thyroid 90 MG MG _empty_ MG stomach } Flonase Flonase No Flonase Clopidogrel Clopidogrel No 1{table QD Clopidogre Bisulfate Bisulfate t} l 75 MG 75 MG Bisulfate 75 MG levoFLOXaci levoFLOXaci No levoFLOXac n 500 MG n 500 MG in 500 MG methylPREDN methylPREDN No methylPRED ISolone 4 ISolone 4 NISolone 4 MG MG MG Bisoprolol Bisoprolol No QD Bisoprolol Fumarate 5 Fumarate 5 Fumarate 5 MG MG MG Augustus Crandall No 1{table QD Crandall Thyroid 90 Thyroid 90 t_on_an Thyroid 90 MG MG _empty_ MG stomach } Flonase Flonase No Flonase Esomeprazol Esomeprazol No Esomeprazo e Magnesium e Magnesium le 20 MG 20 MG Magnesium 20 MG Testosteron Testosteron No Testostero e Cypionate e Cypionate ne 200 MG/ML 200 MG/ML Cypionate 200 MG/ML Tumersaid Tumersaid No Tumersaid Bisoprolol Bisoprolol No QD Bisoprolol Fumarate 5 Fumarate 5 Fumarate 5 MG MG MG Vitamin C Vitamin C No Vitamin C Ventolin Ventolin No Ventolin HFA HFA HFA Bisoprolol- Bisoprolol- No Bisoprolol hydroCHLORO hydroCHLORO -hydroCHLO thiazide thiazide ROthiazide 2.5-6.25 MG 2.5-6.25 MG 2.5-6.25 MG Albuterol Albuterol No Albuterol Sulfate HFA Sulfate HFA Sulfate 108 (90 108 (90 HFA 108 Base) Base) (90 Base) MCG/ACT MCG/ACT MCG/ACT methylPREDN methylPREDN No methylPRED ISolone 4 ISolone 4 NISolone 4 MG MG MG CoQ10 CoQ10 No CoQ10 predniSONE predniSONE No 1{table QD predniSONE 10 MG 10 MG t} 10 MG Vitamin D3 Vitamin D3 No Vitamin D3 [id number] UNIT/GM UNIT/GM UNIT/GM levoFLOXaci levoFLOXaci No levoFLOXac n 500 MG n 500 MG in 500 MG Zinc 25 MG Zinc 25 MG No 1{table QD Zinc 25 MG t} Cyclobenzap Cyclobenzap No 1{table QD Cyclobenza rine HCl 10 rine HCl 10 t_at_be wayne HCl MG MG dtime_a 10 MG s_neede d} Clopidogrel Clopidogrel No 1{table QD Clopidogre Bisulfate Bisulfate t} l 75 MG 75 MG Bisulfate 75 MG prednisoLON prednisoLON No QD prednisoLO E 5 MG E 5 MG NE 5 MG Azelastine Azelastine No Azelastine HCl 0.1 % HCl 0.1 % HCl 0.1 % Cholesterol Cholesterol No Cholestero l CVS Aspirin CVS Aspirin No CVS Adult Low Adult Low Aspirin Dose 81 MG Dose 81 MG Adult Low Dose 81 MG Crandall Crandall No 1{table QD Crandall Thyroid 90 Thyroid 90 t_on_an Thyroid 90 MG MG _empty_ MG stomach } Flonase Flonase No Flonase Esomeprazol Esomeprazol No Esomeprazo e Magnesium e Magnesium le 20 MG 20 MG Magnesium 20 MG Testosteron Testosteron No Testostero e Cypionate e Cypionate ne 200 MG/ML 200 MG/ML Cypionate 200 MG/ML Tumersaid Tumersaid No Tumersaid Bisoprolol Bisoprolol No QD Bisoprolol Fumarate 5 Fumarate 5 Fumarate 5 MG MG MG Vitamin C Vitamin C No Vitamin C Ventolin Ventolin No Ventolin HFA HFA HFA Bisoprolol- Bisoprolol- No Bisoprolol hydroCHLORO hydroCHLORO -hydroCHLO thiazide thiazide ROthiazide 2.5-6.25 MG 2.5-6.25 MG 2.5-6.25 MG Albuterol Albuterol No Albuterol Sulfate HFA Sulfate HFA Sulfate 108 (90 108 (90 HFA 108 Base) Base) (90 Base) MCG/ACT MCG/ACT MCG/ACT methylPREDN methylPREDN No methylPRED ISolone 4 ISolone 4 NISolone 4 MG MG MG CoQ10 CoQ10 No CoQ10 predniSONE predniSONE No 1{table QD predniSONE 10 MG 10 MG t} 10 MG Vitamin D3 Vitamin D3 No Vitamin D3 [id number] UNIT/GM UNIT/GM UNIT/GM levoFLOXaci levoFLOXaci No levoFLOXac n 500 MG n 500 MG in 500 MG Zinc 25 MG Zinc 25 MG No 1{table QD Zinc 25 MG t} Cyclobenzap Cyclobenzap No 1{table QD Cyclobenza rine HCl 10 rine HCl 10 t_at_be wayne HCl MG MG dtime_a 10 MG s_neede d} Clopidogrel Clopidogrel No 1{table QD Clopidogre Bisulfate Bisulfate t} l 75 MG 75 MG Bisulfate 75 MG prednisoLON prednisoLON No QD prednisoLO E 5 MG E 5 MG NE 5 MG Azelastine Azelastine No Azelastine HCl 0.1 % HCl 0.1 % HCl 0.1 % Cholesterol Cholesterol No Cholestero l CVS Aspirin CVS Aspirin No CVS Adult Low Adult Low Aspirin Dose 81 MG Dose 81 MG Adult Low Dose 81 MG Azelastine Azelastine No HCl 0.1 % HCl 0.1 % CoQ10 CoQ10 No levoFLOXaci levoFLOXaci No n 500 MG n 500 MG Vitamin C Vitamin C No Flonase Flonase No Cyclobenzap Cyclobenzap No 1{table QD rine HCl 10 rine HCl 10 t_at_be MG MG dtime_a s_neede d} Ventolin Ventolin No HFA HFA Vitamin D3 Vitamin D3 No [id number] UNIT/GM UNIT/GM Zinc 25 MG Zinc 25 MG No 1{table QD t} Esomeprazol Esomeprazol No e Magnesium e Magnesium 20 MG 20 MG predniSONE predniSONE No 1{table QD 10 MG 10 MG t} CVS Aspirin CVS Aspirin No Adult Low Adult Low Dose 81 MG Dose 81 MG Tamsulosin Tamsulosin No 1{capsu QD HCl 0.4 MG HCl 0.4 MG le} Crandall Crandall No 1{table QD Thyroid 90 Thyroid 90 t_on_an MG MG _empty_ stomach } Albuterol Albuterol No Sulfate HFA Sulfate HFA 108 (90 108 (90 Base) Base) MCG/ACT MCG/ACT Testosteron Testosteron No e Cypionate e Cypionate 200 MG/ML 200 MG/ML methylPREDN methylPREDN No ISolone 4 ISolone 4 MG MG Bisoprolol- Bisoprolol- No hydroCHLORO hydroCHLORO thiazide thiazide 2.5-6.25 MG 2.5-6.25 MG Cholesterol Cholesterol No Tumersaid Tumersaid No Bisoprolol Bisoprolol No QD Fumarate 5 Fumarate 5 MG MG Zinc 25 MG Zinc 25 MG No 1{table QD Zinc 25 MG t} Cholesterol Cholesterol No Cholestero l Tamsulosin Tamsulosin No 1{capsu QD Tamsulosin HCl 0.4 MG HCl 0.4 MG le} HCl 0.4 MG Vitamin D3 Vitamin D3 No Vitamin D3 [id number] UNIT/GM UNIT/GM UNIT/GM Esomeprazol Esomeprazol No Esomeprazo e Magnesium e Magnesium le 20 MG 20 MG Magnesium 20 MG Tumersaid Tumersaid No Tumersaid Cyclobenzap Cyclobenzap No 1{table QD Cyclobenza rine HCl 10 rine HCl 10 t_at_be wayne HCl MG MG dtime_a 10 MG s_neede d} levoFLOXaci levoFLOXaci No levoFLOXac n 500 MG n 500 MG in 500 MG methylPREDN methylPREDN No methylPRED ISolone 4 ISolone 4 NISolone 4 MG MG MG Testosteron Testosteron No Testostero e Cypionate e Cypionate ne 200 MG/ML 200 MG/ML Cypionate 200 MG/ML CVS Aspirin CVS Aspirin No CVS Adult Low Adult Low Aspirin Dose 81 MG Dose 81 MG Adult Low Dose 81 MG Flonase Flonase No Flonase Albuterol Albuterol No Albuterol Sulfate HFA Sulfate HFA Sulfate 108 (90 108 (90 HFA 108 Base) Base) (90 Base) MCG/ACT MCG/ACT MCG/ACT Bisoprolol Bisoprolol No QD Bisoprolol Fumarate 5 Fumarate 5 Fumarate 5 MG MG MG CoQ10 CoQ10 No CoQ10 Ventolin Ventolin No Ventolin HFA HFA HFA Crandall Crandall No 1{table QD Crandall Thyroid 90 Thyroid 90 t_on_an Thyroid 90 MG MG _empty_ MG stomach } Vitamin C Vitamin C No Vitamin C Bisoprolol- Bisoprolol- No Bisoprolol hydroCHLORO hydroCHLORO -hydroCHLO thiazide thiazide ROthiazide 2.5-6.25 MG 2.5-6.25 MG 2.5-6.25 MG Azelastine Azelastine No Azelastine HCl 0.1 % HCl 0.1 % HCl 0.1 % predniSONE predniSONE No 1{table QD predniSONE 10 MG 10 MG t} 10 MG Crandall Crandall No 1{table QD Crandall Thyroid 90 Thyroid 90 t_on_an Thyroid 90 MG MG _empty_ MG stomach } Zinc 25 MG Zinc 25 MG No 1{table QD Zinc 25 MG t} methylPREDN methylPREDN No methylPRED ISolone 4 ISolone 4 NISolone 4 MG MG MG Albuterol Albuterol No Albuterol Sulfate HFA Sulfate HFA Sulfate 108 (90 108 (90 HFA 108 Base) Base) (90 Base) MCG/ACT MCG/ACT MCG/ACT Cyclobenzap Cyclobenzap No 1{table QD Cyclobenza rine HCl 10 rine HCl 10 t_at_be wayne HCl MG MG dtime_a 10 MG s_neede d} Esomeprazol Esomeprazol No Esomeprazo e Magnesium e Magnesium le 20 MG 20 MG Magnesium 20 MG Vitamin C Vitamin C No Vitamin C Tamsulosin Tamsulosin No 1{capsu QD Tamsulosin HCl 0.4 MG HCl 0.4 MG le} HCl 0.4 MG predniSONE predniSONE No 1{table QD predniSONE 10 MG 10 MG t} 10 MG CVS Aspirin CVS Aspirin No CVS Adult Low Adult Low Aspirin Dose 81 MG Dose 81 MG Adult Low Dose 81 MG Flonase Flonase No Flonase Testosteron Testosteron No Testostero e Cypionate e Cypionate ne 200 MG/ML 200 MG/ML Cypionate 200 MG/ML Vitamin D3 Vitamin D3 No Vitamin D3 [id number] UNIT/GM UNIT/GM UNIT/GM CoQ10 CoQ10 No CoQ10 Tumersaid Tumersaid No Tumersaid Ventolin Ventolin No Ventolin HFA HFA HFA levoFLOXaci levoFLOXaci No levoFLOXac n 500 MG n 500 MG in 500 MG Azelastine Azelastine No Azelastine HCl 0.1 % HCl 0.1 % HCl 0.1 % Bisoprolol Bisoprolol No QD Bisoprolol Fumarate 5 Fumarate 5 Fumarate 5 MG MG MG Bisoprolol- Bisoprolol- No Bisoprolol hydroCHLORO hydroCHLORO -hydroCHLO thiazide thiazide ROthiazide 2.5-6.25 MG 2.5-6.25 MG 2.5-6.25 MG Cholesterol Cholesterol No Cholestero l Bisoprolol- Bisoprolol- No Bisoprolol hydroCHLORO hydroCHLORO -hydroCHLO thiazide thiazide ROthiazide 2.5-6.25 MG 2.5-6.25 MG 2.5-6.25 MG Azelastine Azelastine No Azelastine HCl 0.1 % HCl 0.1 % HCl 0.1 % CVS Aspirin CVS Aspirin No CVS Adult Low Adult Low Aspirin Dose 81 MG Dose 81 MG Adult Low Dose 81 MG Ventolin Ventolin No Ventolin HFA HFA HFA Vitamin C Vitamin C No Vitamin C methylPREDN methylPREDN No methylPRED ISolone 4 ISolone 4 NISolone 4 MG MG MG Tamsulosin Tamsulosin No 1{capsu QD Tamsulosin HCl 0.4 MG HCl 0.4 MG le} HCl 0.4 MG Vitamin D3 Vitamin D3 No Vitamin D3 [id number] UNIT/GM UNIT/GM UNIT/GM Bisoprolol Bisoprolol No QD Bisoprolol Fumarate 5 Fumarate 5 Fumarate 5 MG MG MG predniSONE predniSONE No 1{table QD predniSONE 10 MG 10 MG t} 10 MG Crandall Crandall No 1{table QD Crandall Thyroid 90 Thyroid 90 t_on_an Thyroid 90 MG MG _empty_ MG stomach } Flonase Flonase No Flonase CoQ10 CoQ10 No CoQ10 Testosteron Testosteron No Testostero e Cypionate e Cypionate ne 200 MG/ML 200 MG/ML Cypionate 200 MG/ML Zinc 25 MG Zinc 25 MG No 1{table QD Zinc 25 MG t} Cyclobenzap Cyclobenzap No 1{table QD Cyclobenza rine HCl 10 rine HCl 10 t_at_be wayne HCl MG MG dtime_a 10 MG s_neede d} Cholesterol Cholesterol No Cholestero l Albuterol Albuterol No Albuterol Sulfate HFA Sulfate HFA Sulfate 108 (90 108 (90 HFA 108 Base) Base) (90 Base) MCG/ACT MCG/ACT MCG/ACT Esomeprazol Esomeprazol No Esomeprazo e Magnesium e Magnesium le 20 MG 20 MG Magnesium 20 MG Tumersaid Tumersaid No Tumersaid levoFLOXaci levoFLOXaci No levoFLOXac n 500 MG n 500 MG in 500 MG Bisoprolol- Bisoprolol- No hydroCHLORO hydroCHLORO thiazide thiazide 2.5-6.25 MG 2.5-6.25 MG Azelastine Azelastine No HCl 0.1 % HCl 0.1 % CVS Aspirin CVS Aspirin No Adult Low Adult Low Dose 81 MG Dose 81 MG Ventolin Ventolin No HFA HFA Vitamin C Vitamin C No methylPREDN methylPREDN No ISolone 4 ISolone 4 MG MG Tamsulosin Tamsulosin No 1{capsu QD HCl 0.4 MG HCl 0.4 MG le} Vitamin D3 Vitamin D3 No [id number] UNIT/GM UNIT/GM Bisoprolol Bisoprolol No QD Fumarate 5 Fumarate 5 MG MG predniSONE predniSONE No 1{table QD 10 MG 10 MG t} Crandall Crandall No 1{table QD Thyroid 90 Thyroid 90 t_on_an MG MG _empty_ stomach } Flonase Flonase No CoQ10 CoQ10 No Testosteron Testosteron No e Cypionate e Cypionate 200 MG/ML 200 MG/ML Zinc 25 MG Zinc 25 MG No 1{table QD t} Cyclobenzap Cyclobenzap No 1{table QD rine HCl 10 rine HCl 10 t_at_be MG MG dtime_a s_neede d} Cholesterol Cholesterol No Albuterol Albuterol No Sulfate HFA Sulfate HFA 108 (90 108 (90 Base) Base) MCG/ACT MCG/ACT Esomeprazol Esomeprazol No e Magnesium e Magnesium 20 MG 20 MG Tumersaid Tumersaid No levoFLOXaci levoFLOXaci No n 500 MG n 500 MG Tumersaid Tumersaid No Tumersaid Zinc 25 MG Zinc 25 MG No 1{table QD Zinc 25 MG t} Albuterol Albuterol No Albuterol Sulfate HFA Sulfate HFA Sulfate 108 (90 108 (90 HFA 108 Base) Base) (90 Base) MCG/ACT MCG/ACT MCG/ACT Vitamin C Vitamin C No Vitamin C Crandall Crandall No 1{table QD Crandall Thyroid 90 Thyroid 90 t_on_an Thyroid 90 MG MG _empty_ MG stomach } Vitamin D3 Vitamin D3 No Vitamin D3 [id number] UNIT/GM UNIT/GM UNIT/GM Azelastine Azelastine No Azelastine HCl 0.1 % HCl 0.1 % HCl 0.1 % Cholesterol Cholesterol No Cholestero l Tamsulosin Tamsulosin No 1{capsu QD Tamsulosin HCl 0.4 MG HCl 0.4 MG le} HCl 0.4 MG Testosteron Testosteron No Testostero e Cypionate e Cypionate ne 200 MG/ML 200 MG/ML Cypionate 200 MG/ML Bisoprolol- Bisoprolol- No Bisoprolol hydroCHLORO hydroCHLORO -hydroCHLO thiazide thiazide ROthiazide 2.5-6.25 MG 2.5-6.25 MG 2.5-6.25 MG Bisoprolol Bisoprolol No QD Bisoprolol Fumarate 5 Fumarate 5 Fumarate 5 MG MG MG predniSONE predniSONE No 1{table QD predniSONE 10 MG 10 MG t} 10 MG CVS Aspirin CVS Aspirin No CVS Adult Low Adult Low Aspirin Dose 81 MG Dose 81 MG Adult Low Dose 81 MG methylPREDN methylPREDN No methylPRED ISolone 4 ISolone 4 NISolone 4 MG MG MG Ventolin Ventolin No Ventolin HFA HFA HFA levoFLOXaci levoFLOXaci No levoFLOXac n 500 MG n 500 MG in 500 MG CoQ10 CoQ10 No CoQ10 Esomeprazol Esomeprazol No Esomeprazo e Magnesium e Magnesium le 20 MG 20 MG Magnesium 20 MG Cyclobenzap Cyclobenzap No 1{table QD Cyclobenza rine HCl 10 rine HCl 10 t_at_be wayne HCl MG MG dtime_a 10 MG s_neede d} Flonase Flonase No Flonase Tumersaid Tumersaid No Tumersaid Zinc 25 MG Zinc 25 MG No 1{table QD Zinc 25 MG t} Albuterol Albuterol No Albuterol Sulfate HFA Sulfate HFA Sulfate 108 (90 108 (90 HFA 108 Base) Base) (90 Base) MCG/ACT MCG/ACT MCG/ACT Vitamin C Vitamin C No Vitamin C Crandall Crandall No 1{table QD Crandall Thyroid 90 Thyroid 90 t_on_an Thyroid 90 MG MG _empty_ MG stomach } Vitamin D3 Vitamin D3 No Vitamin D3 [id number] UNIT/GM UNIT/GM UNIT/GM Azelastine Azelastine No Azelastine HCl 0.1 % HCl 0.1 % HCl 0.1 % Cholesterol Cholesterol No Cholestero l Tamsulosin Tamsulosin No 1{capsu QD Tamsulosin HCl 0.4 MG HCl 0.4 MG le} HCl 0.4 MG Testosteron Testosteron No Testostero e Cypionate e Cypionate ne 200 MG/ML 200 MG/ML Cypionate 200 MG/ML Bisoprolol- Bisoprolol- No Bisoprolol hydroCHLORO hydroCHLORO -hydroCHLO thiazide thiazide ROthiazide 2.5-6.25 MG 2.5-6.25 MG 2.5-6.25 MG Bisoprolol Bisoprolol No QD Bisoprolol Fumarate 5 Fumarate 5 Fumarate 5 MG MG MG predniSONE predniSONE No 1{table QD predniSONE 10 MG 10 MG t} 10 MG CVS Aspirin CVS Aspirin No CVS Adult Low Adult Low Aspirin Dose 81 MG Dose 81 MG Adult Low Dose 81 MG methylPREDN methylPREDN No methylPRED ISolone 4 ISolone 4 NISolone 4 MG MG MG Ventolin Ventolin No Ventolin HFA HFA HFA levoFLOXaci levoFLOXaci No levoFLOXac n 500 MG n 500 MG in 500 MG CoQ10 CoQ10 No CoQ10 Esomeprazol Esomeprazol No Esomeprazo e Magnesium e Magnesium le 20 MG 20 MG Magnesium 20 MG Cyclobenzap Cyclobenzap No 1{table QD Cyclobenza rine HCl 10 rine HCl 10 t_at_be wayne HCl MG MG dtime_a 10 MG s_neede d} Flonase Flonase No Flonase Azelastine Azelastine No Azelastine HCl 0.1 % HCl 0.1 % HCl 0.1 % CoQ10 CoQ10 No CoQ10 Tumersaid Tumersaid No Tumersaid predniSONE predniSONE No 1{table QD predniSONE 10 MG 10 MG t} 10 MG methylPREDN methylPREDN No methylPRED ISolone 4 ISolone 4 NISolone 4 MG MG MG Ventolin Ventolin No Ventolin HFA HFA HFA Bisoprolol- Bisoprolol- No Bisoprolol hydroCHLORO hydroCHLORO -hydroCHLO thiazide thiazide ROthiazide 2.5-6.25 MG 2.5-6.25 MG 2.5-6.25 MG Cyclobenzap Cyclobenzap No 1{table QD Cyclobenza rine HCl 10 rine HCl 10 t_at_be wayne HCl MG MG dtime_a 10 MG s_neede d} Crandall Crandall No 1{table QD Crandall Thyroid 90 Thyroid 90 t_on_an Thyroid 90 MG MG _empty_ MG stomach } Flonase Flonase No Flonase Albuterol Albuterol No Albuterol Sulfate HFA Sulfate HFA Sulfate 108 (90 108 (90 HFA 108 Base) Base) (90 Base) MCG/ACT MCG/ACT MCG/ACT Tamsulosin Tamsulosin No 1{capsu QD Tamsulosin HCl 0.4 MG HCl 0.4 MG le} HCl 0.4 MG Vitamin C Vitamin C No Vitamin C Cholesterol Cholesterol No Cholestero l Testosteron Testosteron No Testostero e Cypionate e Cypionate ne 200 MG/ML 200 MG/ML Cypionate 200 MG/ML CVS Aspirin CVS Aspirin No CVS Adult Low Adult Low Aspirin Dose 81 MG Dose 81 MG Adult Low Dose 81 MG Vitamin D3 Vitamin D3 No Vitamin D3 [id number] UNIT/GM UNIT/GM UNIT/GM Zinc 25 MG Zinc 25 MG No 1{table QD Zinc 25 MG t} Bisoprolol Bisoprolol No QD Bisoprolol Fumarate 5 Fumarate 5 Fumarate 5 MG MG MG Esomeprazol Esomeprazol No Esomeprazo e Magnesium e Magnesium le 20 MG 20 MG Magnesium 20 MG levoFLOXaci levoFLOXaci No levoFLOXac n 500 MG n 500 MG in 500 MG Azelastine Azelastine No Azelastine HCl 0.1 % HCl 0.1 % HCl 0.1 % CoQ10 CoQ10 No CoQ10 Tumersaid Tumersaid No Tumersaid predniSONE predniSONE No 1{table QD predniSONE 10 MG 10 MG t} 10 MG methylPREDN methylPREDN No methylPRED ISolone 4 ISolone 4 NISolone 4 MG MG MG Ventolin Ventolin No Ventolin HFA HFA HFA Bisoprolol- Bisoprolol- No Bisoprolol hydroCHLORO hydroCHLORO -hydroCHLO thiazide thiazide ROthiazide 2.5-6.25 MG 2.5-6.25 MG 2.5-6.25 MG Cyclobenzap Cyclobenzap No 1{table QD Cyclobenza rine HCl 10 rine HCl 10 t_at_be wayne HCl MG MG dtime_a 10 MG s_neede d} Crandall Crandall No 1{table QD Crandall Thyroid 90 Thyroid 90 t_on_an Thyroid 90 MG MG _empty_ MG stomach } Flonase Flonase No Flonase Albuterol Albuterol No Albuterol Sulfate HFA Sulfate HFA Sulfate 108 (90 108 (90 HFA 108 Base) Base) (90 Base) MCG/ACT MCG/ACT MCG/ACT Tamsulosin Tamsulosin No 1{capsu QD Tamsulosin HCl 0.4 MG HCl 0.4 MG le} HCl 0.4 MG Vitamin C Vitamin C No Vitamin C Cholesterol Cholesterol No Cholestero l Testosteron Testosteron No Testostero e Cypionate e Cypionate ne 200 MG/ML 200 MG/ML Cypionate 200 MG/ML CVS Aspirin CVS Aspirin No CVS Adult Low Adult Low Aspirin Dose 81 MG Dose 81 MG Adult Low Dose 81 MG Vitamin D3 Vitamin D3 No Vitamin D3 [id number] UNIT/GM UNIT/GM UNIT/GM Zinc 25 MG Zinc 25 MG No 1{table QD Zinc 25 MG t} Bisoprolol Bisoprolol No QD Bisoprolol Fumarate 5 Fumarate 5 Fumarate 5 MG MG MG Esomeprazol Esomeprazol No Esomeprazo e Magnesium e Magnesium le 20 MG 20 MG Magnesium 20 MG levoFLOXaci levoFLOXaci No levoFLOXac n 500 MG n 500 MG in 500 MG Azelastine Azelastine No HCl 0.1 % HCl 0.1 % CoQ10 CoQ10 No Tumersaid Tumersaid No predniSONE predniSONE No 1{table QD 10 MG 10 MG t} methylPREDN methylPREDN No ISolone 4 ISolone 4 MG MG Ventolin Ventolin No HFA HFA Bisoprolol- Bisoprolol- No hydroCHLORO hydroCHLORO thiazide thiazide 2.5-6.25 MG 2.5-6.25 MG Cyclobenzap Cyclobenzap No 1{table QD rine HCl 10 rine HCl 10 t_at_be MG MG dtime_a s_neede d} Crandall Crandall No 1{table QD Thyroid 90 Thyroid 90 t_on_an MG MG _empty_ stomach } Flonase Flonase No Albuterol Albuterol No Sulfate HFA Sulfate HFA 108 (90 108 (90 Base) Base) MCG/ACT MCG/ACT Tamsulosin Tamsulosin No 1{capsu QD HCl 0.4 MG HCl 0.4 MG le} Vitamin C Vitamin C No Cholesterol Cholesterol No Testosteron Testosteron No e Cypionate e Cypionate 200 MG/ML 200 MG/ML CVS Aspirin CVS Aspirin No Adult Low Adult Low Dose 81 MG Dose 81 MG Vitamin D3 Vitamin D3 No [id number] UNIT/GM UNIT/GM Zinc 25 MG Zinc 25 MG No 1{table QD t} Bisoprolol Bisoprolol No QD Fumarate 5 Fumarate 5 MG MG Esomeprazol Esomeprazol No e Magnesium e Magnesium 20 MG 20 MG levoFLOXaci levoFLOXaci No n 500 MG n 500 MG Azelastine Azelastine No HCl 0.1 % HCl 0.1 % CoQ10 CoQ10 No Tumersaid Tumersaid No predniSONE predniSONE No 1{table QD 10 MG 10 MG t} methylPREDN methylPREDN No ISolone 4 ISolone 4 MG MG Ventolin Ventolin No HFA HFA Bisoprolol- Bisoprolol- No hydroCHLORO hydroCHLORO thiazide thiazide 2.5-6.25 MG 2.5-6.25 MG Cyclobenzap Cyclobenzap No 1{table QD rine HCl 10 rine HCl 10 t_at_be MG MG dtime_a s_neede d} Crandall Crandall No 1{table QD Thyroid 90 Thyroid 90 t_on_an MG MG _empty_ stomach } Flonase Flonase No Albuterol Albuterol No Sulfate HFA Sulfate HFA 108 (90 108 (90 Base) Base) MCG/ACT MCG/ACT Esomeprazol Esomeprazol No e Magnesium e Magnesium 20 MG 20 MG Vitamin C Vitamin C No Cholesterol Cholesterol No CVS Aspirin CVS Aspirin No Adult Low Adult Low Dose 81 MG Dose 81 MG Vitamin D3 Vitamin D3 No [id number] UNIT/GM UNIT/GM Zinc 25 MG Zinc 25 MG No 1{table QD t} Bisoprolol Bisoprolol No QD Fumarate 5 Fumarate 5 MG MG Testosteron Testosteron No e Cypionate e Cypionate 200 MG/ML 200 MG/ML levoFLOXaci levoFLOXaci No n 500 MG n 500 MG Clopidogrel Clopidogrel No 1{table QD Clopidogre Bisulfate Bisulfate t} l 75 MG 75 MG Bisulfate 75 MG Vitamin D3 Vitamin D3 No Vitamin D3 [id number] UNIT/GM UNIT/GM UNIT/GM Testosteron Testosteron No Testostero e Cypionate e Cypionate ne 200 MG/ML 200 MG/ML Cypionate 200 MG/ML Zinc 25 MG Zinc 25 MG No 1{table QD Zinc 25 MG t} Albuterol Albuterol No Albuterol Sulfate HFA Sulfate HFA Sulfate 108 (90 108 (90 HFA 108 Base) Base) (90 Base) MCG/ACT MCG/ACT MCG/ACT Azelastine Azelastine No Azelastine HCl 0.1 % HCl 0.1 % HCl 0.1 % Ventolin Ventolin No Ventolin HFA HFA HFA Cholesterol Cholesterol No Cholestero l Tumersaid Tumersaid No Tumersaid Bisoprolol- Bisoprolol- No Bisoprolol hydroCHLORO hydroCHLORO -hydroCHLO thiazide thiazide ROthiazide 2.5-6.25 MG 2.5-6.25 MG 2.5-6.25 MG CVS Aspirin CVS Aspirin No CVS Adult Low Adult Low Aspirin Dose 81 MG Dose 81 MG Adult Low Dose 81 MG Vitamin C Vitamin C No Vitamin C methylPREDN methylPREDN No methylPRED ISolone 4 ISolone 4 NISolone 4 MG MG MG levoFLOXaci levoFLOXaci No levoFLOXac n 500 MG n 500 MG in 500 MG CoQ10 CoQ10 No CoQ10 prednisoLON prednisoLON No QD prednisoLO E 5 MG E 5 MG NE 5 MG Bisoprolol Bisoprolol No QD Bisoprolol Fumarate 5 Fumarate 5 Fumarate 5 MG MG MG Flonase Flonase No Flonase Esomeprazol Esomeprazol No Esomeprazo e Magnesium e Magnesium le 20 MG 20 MG Magnesium 20 MG predniSONE predniSONE No 1{table QD predniSONE 10 MG 10 MG t} 10 MG Crandall Crandall No 1{table QD Crandall Thyroid 90 Thyroid 90 t_on_an Thyroid 90 MG MG _empty_ MG stomach } Cyclobenzap Cyclobenzap No 1{table QD Cyclobenza rine HCl 10 rine HCl 10 t_at_be wayne HCl MG MG dtime_a 10 MG s_neede d} Clopidogrel Clopidogrel No 1{table QD Clopidogre Bisulfate Bisulfate t} l 75 MG 75 MG Bisulfate 75 MG Vitamin D3 Vitamin D3 No Vitamin D3 [id number] UNIT/GM UNIT/GM UNIT/GM Testosteron Testosteron No Testostero e Cypionate e Cypionate ne 200 MG/ML 200 MG/ML Cypionate 200 MG/ML Zinc 25 MG Zinc 25 MG No 1{table QD Zinc 25 MG t} Albuterol Albuterol No Albuterol Sulfate HFA Sulfate HFA Sulfate 108 (90 108 (90 HFA 108 Base) Base) (90 Base) MCG/ACT MCG/ACT MCG/ACT Azelastine Azelastine No Azelastine HCl 0.1 % HCl 0.1 % HCl 0.1 % Ventolin Ventolin No Ventolin HFA HFA HFA Cholesterol Cholesterol No Cholestero l Tumersaid Tumersaid No Tumersaid Bisoprolol- Bisoprolol- No Bisoprolol hydroCHLORO hydroCHLORO -hydroCHLO thiazide thiazide ROthiazide 2.5-6.25 MG 2.5-6.25 MG 2.5-6.25 MG CVS Aspirin CVS Aspirin No CVS Adult Low Adult Low Aspirin Dose 81 MG Dose 81 MG Adult Low Dose 81 MG Vitamin C Vitamin C No Vitamin C methylPREDN methylPREDN No methylPRED ISolone 4 ISolone 4 NISolone 4 MG MG MG levoFLOXaci levoFLOXaci No levoFLOXac n 500 MG n 500 MG in 500 MG CoQ10 CoQ10 No CoQ10 prednisoLON prednisoLON No QD prednisoLO E 5 MG E 5 MG NE 5 MG Bisoprolol Bisoprolol No QD Bisoprolol Fumarate 5 Fumarate 5 Fumarate 5 MG MG MG Flonase Flonase No Flonase Esomeprazol Esomeprazol No Esomeprazo e Magnesium e Magnesium le 20 MG 20 MG Magnesium 20 MG predniSONE predniSONE No 1{table QD predniSONE 10 MG 10 MG t} 10 MG Crandall Crandall No 1{table QD Crandall Thyroid 90 Thyroid 90 t_on_an Thyroid 90 MG MG _empty_ MG stomach } Cyclobenzap Cyclobenzap No 1{table QD Cyclobenza rine HCl 10 rine HCl 10 t_at_be wayne HCl MG MG dtime_a 10 MG s_neede d} Esomeprazol Esomeprazol No Esomeprazo e Magnesium e Magnesium le 20 MG 20 MG Magnesium 20 MG Ventolin Ventolin No Ventolin HFA HFA HFA Crandall Crandall No 1{table QD Crandall Thyroid 90 Thyroid 90 t_on_an Thyroid 90 MG MG _empty_ MG stomach } CoQ10 CoQ10 No CoQ10 Cyclobenzap Cyclobenzap No 1{table QD Cyclobenza rine HCl 10 rine HCl 10 t_at_be wayne HCl MG MG dtime_a 10 MG s_neede d} Vitamin C Vitamin C No Vitamin C Flonase Flonase No Flonase Zinc 25 MG Zinc 25 MG No 1{table QD Zinc 25 MG t} predniSONE predniSONE No 1{table QD predniSONE 10 MG 10 MG t} 10 MG CVS Aspirin CVS Aspirin No CVS Adult Low Adult Low Aspirin Dose 81 MG Dose 81 MG Adult Low Dose 81 MG Cholesterol Cholesterol No Cholestero l Testosteron Testosteron No Testostero e Cypionate e Cypionate ne 200 MG/ML 200 MG/ML Cypionate 200 MG/ML Albuterol Albuterol No Albuterol Sulfate HFA Sulfate HFA Sulfate 108 (90 108 (90 HFA 108 Base) Base) (90 Base) MCG/ACT MCG/ACT MCG/ACT Vitamin D3 Vitamin D3 No Vitamin D3 [id number] UNIT/GM UNIT/GM UNIT/GM Tumersaid Tumersaid No Tumersaid Clopidogrel Clopidogrel No 1{table QD Clopidogre Bisulfate Bisulfate t} l 75 MG 75 MG Bisulfate 75 MG Bisoprolol Bisoprolol No QD Bisoprolol Fumarate 5 Fumarate 5 Fumarate 5 MG MG MG levoFLOXaci levoFLOXaci No levoFLOXac n 500 MG n 500 MG in 500 MG Bisoprolol- Bisoprolol- No Bisoprolol hydroCHLORO hydroCHLORO -hydroCHLO thiazide thiazide ROthiazide 2.5-6.25 MG 2.5-6.25 MG 2.5-6.25 MG Azelastine Azelastine No Azelastine HCl 0.1 % HCl 0.1 % HCl 0.1 % prednisoLON prednisoLON No QD prednisoLO E 5 MG E 5 MG NE 5 MG methylPREDN methylPREDN No methylPRED ISolone 4 ISolone 4 NISolone 4 MG MG MG Bisoprolol Bisoprolol No QD Bisoprolol Fumarate 5 Fumarate 5 Fumarate 5 MG MG MG levoFLOXaci levoFLOXaci No levoFLOXac n 500 MG n 500 MG in 500 MG Testosteron Testosteron No Testostero e Cypionate e Cypionate ne 200 MG/ML 200 MG/ML Cypionate 200 MG/ML Azelastine Azelastine No Azelastine HCl 0.1 % HCl 0.1 % HCl 0.1 % Cholesterol Cholesterol No Cholestero l prednisoLON prednisoLON No QD prednisoLO E 5 MG E 5 MG NE 5 MG Ventolin Ventolin No Ventolin HFA HFA HFA Crandall Crandall No 1{table QD Crandall Thyroid 90 Thyroid 90 t_on_an Thyroid 90 MG MG _empty_ MG stomach } Cyclobenzap Cyclobenzap No 1{table QD Cyclobenza rine HCl 10 rine HCl 10 t_at_be wayne HCl MG MG dtime_a 10 MG s_neede d} Bisoprolol- Bisoprolol- No Bisoprolol hydroCHLORO hydroCHLORO -hydroCHLO thiazide thiazide ROthiazide 2.5-6.25 MG 2.5-6.25 MG 2.5-6.25 MG Tumersaid Tumersaid No Tumersaid CoQ10 CoQ10 No CoQ10 methylPREDN methylPREDN No methylPRED ISolone 4 ISolone 4 NISolone 4 MG MG MG Flonase Flonase No Flonase Albuterol Albuterol No Albuterol Sulfate HFA Sulfate HFA Sulfate 108 (90 108 (90 HFA 108 Base) Base) (90 Base) MCG/ACT MCG/ACT MCG/ACT predniSONE predniSONE No 1{table QD predniSONE 10 MG 10 MG t} 10 MG Clopidogrel Clopidogrel No 1{table QD Clopidogre Bisulfate Bisulfate t} l 75 MG 75 MG Bisulfate 75 MG Vitamin C Vitamin C No Vitamin C Vitamin D3 Vitamin D3 No Vitamin D3 [id number] UNIT/GM UNIT/GM UNIT/GM CVS Aspirin CVS Aspirin No CVS Adult Low Adult Low Aspirin Dose 81 MG Dose 81 MG Adult Low Dose 81 MG Zinc 25 MG Zinc 25 MG No 1{table QD Zinc 25 MG t} Esomeprazol Esomeprazol No Esomeprazo e Magnesium e Magnesium le 20 MG 20 MG Magnesium 20 MG CoQ10 CoQ10 No CoQ10 Clopidogrel Clopidogrel No 1{table QD Clopidogre Bisulfate Bisulfate t} l 75 MG 75 MG Bisulfate 75 MG levoFLOXaci levoFLOXaci No levoFLOXac n 500 MG n 500 MG in 500 MG Testosteron Testosteron No Testostero e Cypionate e Cypionate ne 200 MG/ML 200 MG/ML Cypionate 200 MG/ML Flonase Flonase No Flonase methylPREDN methylPREDN No methylPRED ISolone 4 ISolone 4 NISolone 4 MG MG MG Tumersaid Tumersaid No Tumersaid Bisoprolol- Bisoprolol- No Bisoprolol hydroCHLORO hydroCHLORO -hydroCHLO thiazide thiazide ROthiazide 2.5-6.25 MG 2.5-6.25 MG 2.5-6.25 MG Ventolin Ventolin No Ventolin HFA HFA HFA Esomeprazol Esomeprazol No Esomeprazo e Magnesium e Magnesium le 20 MG 20 MG Magnesium 20 MG Zinc 25 MG Zinc 25 MG No 1{table QD Zinc 25 MG t} Azelastine Azelastine No Azelastine HCl 0.1 % HCl 0.1 % HCl 0.1 % CVS Aspirin CVS Aspirin No CVS Adult Low Adult Low Aspirin Dose 81 MG Dose 81 MG Adult Low Dose 81 MG prednisoLON prednisoLON No QD prednisoLO E 5 MG E 5 MG NE 5 MG Cholesterol Cholesterol No Cholestero l Bisoprolol Bisoprolol No QD Bisoprolol Fumarate 5 Fumarate 5 Fumarate 5 MG MG MG Vitamin D3 Vitamin D3 No Vitamin D3 [id number] UNIT/GM UNIT/GM UNIT/GM predniSONE predniSONE No 1{table QD predniSONE 10 MG 10 MG t} 10 MG Vitamin C Vitamin C No Vitamin C Albuterol Albuterol No Albuterol Sulfate HFA Sulfate HFA Sulfate 108 (90 108 (90 HFA 108 Base) Base) (90 Base) MCG/ACT MCG/ACT MCG/ACT Cyclobenzap Cyclobenzap No 1{table QD Cyclobenza rine HCl 10 rine HCl 10 t_at_be wayne HCl MG MG dtime_a 10 MG s_neede d} Crandall Crandall No 1{table QD Crandall Thyroid 90 Thyroid 90 t_on_an Thyroid 90 MG MG _empty_ MG stomach } CoQ10 CoQ10 No CoQ10 Clopidogrel Clopidogrel No 1{table QD Clopidogre Bisulfate Bisulfate t} l 75 MG 75 MG Bisulfate 75 MG levoFLOXaci levoFLOXaci No levoFLOXac n 500 MG n 500 MG in 500 MG Testosteron Testosteron No Testostero e Cypionate e Cypionate ne 200 MG/ML 200 MG/ML Cypionate 200 MG/ML Flonase Flonase No Flonase methylPREDN methylPREDN No methylPRED ISolone 4 ISolone 4 NISolone 4 MG MG MG Tumersaid Tumersaid No Tumersaid Bisoprolol- Bisoprolol- No Bisoprolol hydroCHLORO hydroCHLORO -hydroCHLO thiazide thiazide ROthiazide 2.5-6.25 MG 2.5-6.25 MG 2.5-6.25 MG Ventolin Ventolin No Ventolin HFA HFA HFA Esomeprazol Esomeprazol No Esomeprazo e Magnesium e Magnesium le 20 MG 20 MG Magnesium 20 MG Zinc 25 MG Zinc 25 MG No 1{table QD Zinc 25 MG t} Azelastine Azelastine No Azelastine HCl 0.1 % HCl 0.1 % HCl 0.1 % CVS Aspirin CVS Aspirin No CVS Adult Low Adult Low Aspirin Dose 81 MG Dose 81 MG Adult Low Dose 81 MG prednisoLON prednisoLON No QD prednisoLO E 5 MG E 5 MG NE 5 MG Cholesterol Cholesterol No Cholestero l Bisoprolol Bisoprolol No QD Bisoprolol Fumarate 5 Fumarate 5 Fumarate 5 MG MG MG Vitamin D3 Vitamin D3 No Vitamin D3 [id number] UNIT/GM UNIT/GM UNIT/GM predniSONE predniSONE No 1{table QD predniSONE 10 MG 10 MG t} 10 MG Vitamin C Vitamin C No Vitamin C Albuterol Albuterol No Albuterol Sulfate HFA Sulfate HFA Sulfate 108 (90 108 (90 HFA 108 Base) Base) (90 Base) MCG/ACT MCG/ACT MCG/ACT Cyclobenzap Cyclobenzap No 1{table QD Cyclobenza rine HCl 10 rine HCl 10 t_at_be wayne HCl MG MG dtime_a 10 MG s_neede d} Crandall Crandall No 1{table QD Crandall Thyroid 90 Thyroid 90 t_on_an Thyroid 90 MG MG _empty_ MG stomach } Esomeprazol Esomeprazol No Esomeprazo e Magnesium e Magnesium le 20 MG 20 MG Magnesium 20 MG prednisoLON prednisoLON No QD prednisoLO E 5 MG E 5 MG NE 5 MG Crandall Crandall No 1{table QD Crandall Thyroid 90 Thyroid 90 t_on_an Thyroid 90 MG MG _empty_ MG stomach } Bisoprolol Bisoprolol No QD Bisoprolol Fumarate 5 Fumarate 5 Fumarate 5 MG MG MG Flonase Flonase No Flonase Vitamin D3 Vitamin D3 No Vitamin D3 [id number] UNIT/GM UNIT/GM UNIT/GM Albuterol Albuterol No Albuterol Sulfate HFA Sulfate HFA Sulfate 108 (90 108 (90 HFA 108 Base) Base) (90 Base) MCG/ACT MCG/ACT MCG/ACT Vitamin C Vitamin C No Vitamin C predniSONE predniSONE No 1{table QD predniSONE 10 MG 10 MG t} 10 MG methylPREDN methylPREDN No methylPRED ISolone 4 ISolone 4 NISolone 4 MG MG MG levoFLOXaci levoFLOXaci No levoFLOXac n 500 MG n 500 MG in 500 MG CVS Aspirin CVS Aspirin No CVS Adult Low Adult Low Aspirin Dose 81 MG Dose 81 MG Adult Low Dose 81 MG Ventolin Ventolin No Ventolin HFA HFA HFA Bisoprolol- Bisoprolol- No Bisoprolol hydroCHLORO hydroCHLORO -hydroCHLO thiazide thiazide ROthiazide 2.5-6.25 MG 2.5-6.25 MG 2.5-6.25 MG Zinc 25 MG Zinc 25 MG No 1{table QD Zinc 25 MG t} Cholesterol Cholesterol No Cholestero l Clopidogrel Clopidogrel No 1{table QD Clopidogre Bisulfate Bisulfate t} l 75 MG 75 MG Bisulfate 75 MG Azelastine Azelastine No Azelastine HCl 0.1 % HCl 0.1 % HCl 0.1 % Testosteron Testosteron No Testostero e Cypionate e Cypionate ne 200 MG/ML 200 MG/ML Cypionate 200 MG/ML Tumersaid Tumersaid No Tumersaid Cyclobenzap Cyclobenzap No 1{table QD Cyclobenza rine HCl 10 rine HCl 10 t_at_be wayne HCl MG MG dtime_a 10 MG s_neede d} CoQ10 CoQ10 No CoQ10 Esomeprazol Esomeprazol No Esomeprazo e Magnesium e Magnesium le 20 MG 20 MG Magnesium 20 MG prednisoLON prednisoLON No QD prednisoLO E 5 MG E 5 MG NE 5 MG Crandall Crandall No 1{table QD Crandall Thyroid 90 Thyroid 90 t_on_an Thyroid 90 MG MG _empty_ MG stomach } Bisoprolol Bisoprolol No QD Bisoprolol Fumarate 5 Fumarate 5 Fumarate 5 MG MG MG Flonase Flonase No Flonase Vitamin D3 Vitamin D3 No Vitamin D3 [id number] UNIT/GM UNIT/GM UNIT/GM Albuterol Albuterol No Albuterol Sulfate HFA Sulfate HFA Sulfate 108 (90 108 (90 HFA 108 Base) Base) (90 Base) MCG/ACT MCG/ACT MCG/ACT Vitamin C Vitamin C No Vitamin C predniSONE predniSONE No 1{table QD predniSONE 10 MG 10 MG t} 10 MG methylPREDN methylPREDN No methylPRED ISolone 4 ISolone 4 NISolone 4 MG MG MG levoFLOXaci levoFLOXaci No levoFLOXac n 500 MG n 500 MG in 500 MG CVS Aspirin CVS Aspirin No CVS Adult Low Adult Low Aspirin Dose 81 MG Dose 81 MG Adult Low Dose 81 MG Ventolin Ventolin No Ventolin HFA HFA HFA Bisoprolol- Bisoprolol- No Bisoprolol hydroCHLORO hydroCHLORO -hydroCHLO thiazide thiazide ROthiazide 2.5-6.25 MG 2.5-6.25 MG 2.5-6.25 MG Zinc 25 MG Zinc 25 MG No 1{table QD Zinc 25 MG t} Cholesterol Cholesterol No Cholestero l Clopidogrel Clopidogrel No 1{table QD Clopidogre Bisulfate Bisulfate t} l 75 MG 75 MG Bisulfate 75 MG Azelastine Azelastine No Azelastine HCl 0.1 % HCl 0.1 % HCl 0.1 % Testosteron Testosteron No Testostero e Cypionate e Cypionate ne 200 MG/ML 200 MG/ML Cypionate 200 MG/ML Tumersaid Tumersaid No Tumersaid Cyclobenzap Cyclobenzap No 1{table QD Cyclobenza rine HCl 10 rine HCl 10 t_at_be wayne HCl MG MG dtime_a 10 MG s_neede d} CoQ10 CoQ10 No CoQ10 Azelastine Azelastine No Azelastine HCl 0.1 % HCl 0.1 % HCl 0.1 % Crandall Crandall No 1{table QD Crandall Thyroid 90 Thyroid 90 t_on_an Thyroid 90 MG MG _empty_ MG stomach } Albuterol Albuterol No Albuterol Sulfate HFA Sulfate HFA Sulfate 108 (90 108 (90 HFA 108 Base) Base) (90 Base) MCG/ACT MCG/ACT MCG/ACT Tumersaid Tumersaid No Tumersaid Zinc 25 MG Zinc 25 MG No 1{table QD Zinc 25 MG t} Cyclobenzap Cyclobenzap No 1{table QD Cyclobenza rine HCl 10 rine HCl 10 t_at_be wayne HCl MG MG dtime_a 10 MG s_neede d} Esomeprazol Esomeprazol No Esomeprazo e Magnesium e Magnesium le 20 MG 20 MG Magnesium 20 MG CoQ10 CoQ10 No CoQ10 CVS Aspirin CVS Aspirin No CVS Adult Low Adult Low Aspirin Dose 81 MG Dose 81 MG Adult Low Dose 81 MG Cholesterol Cholesterol No Cholestero l Bisoprolol- Bisoprolol- No Bisoprolol hydroCHLORO hydroCHLORO -hydroCHLO thiazide thiazide ROthiazide 2.5-6.25 MG 2.5-6.25 MG 2.5-6.25 MG levoFLOXaci levoFLOXaci No levoFLOXac n 500 MG n 500 MG in 500 MG Vitamin D3 Vitamin D3 No Vitamin D3 [id number] UNIT/GM UNIT/GM UNIT/GM methylPREDN methylPREDN No methylPRED ISolone 4 ISolone 4 NISolone 4 MG MG MG Testosteron Testosteron No Testostero e Cypionate e Cypionate ne 200 MG/ML 200 MG/ML Cypionate 200 MG/ML Clopidogrel Clopidogrel No 1{table QD Clopidogre Bisulfate Bisulfate t} l 75 MG 75 MG Bisulfate 75 MG predniSONE predniSONE No 1{table QD predniSONE 10 MG 10 MG t} 10 MG Bisoprolol Bisoprolol No QD Bisoprolol Fumarate 5 Fumarate 5 Fumarate 5 MG MG MG prednisoLON prednisoLON No QD prednisoLO E 5 MG E 5 MG NE 5 MG Flonase Flonase No Flonase Vitamin C Vitamin C No Vitamin C Ventolin Ventolin No Ventolin HFA HFA HFA Azelastine Azelastine No Azelastine HCl 0.1 % HCl 0.1 % HCl 0.1 % Crandall Crandall No 1{table QD Crandall Thyroid 90 Thyroid 90 t_on_an Thyroid 90 MG MG _empty_ MG stomach } Albuterol Albuterol No Albuterol Sulfate HFA Sulfate HFA Sulfate 108 (90 108 (90 HFA 108 Base) Base) (90 Base) MCG/ACT MCG/ACT MCG/ACT Tumersaid Tumersaid No Tumersaid Zinc 25 MG Zinc 25 MG No 1{table QD Zinc 25 MG t} Cyclobenzap Cyclobenzap No 1{table QD Cyclobenza rine HCl 10 rine HCl 10 t_at_be wayne HCl MG MG dtime_a 10 MG s_neede d} Esomeprazol Esomeprazol No Esomeprazo e Magnesium e Magnesium le 20 MG 20 MG Magnesium 20 MG CoQ10 CoQ10 No CoQ10 CVS Aspirin CVS Aspirin No CVS Adult Low Adult Low Aspirin Dose 81 MG Dose 81 MG Adult Low Dose 81 MG Cholesterol Cholesterol No Cholestero l Bisoprolol- Bisoprolol- No Bisoprolol hydroCHLORO hydroCHLORO -hydroCHLO thiazide thiazide ROthiazide 2.5-6.25 MG 2.5-6.25 MG 2.5-6.25 MG levoFLOXaci levoFLOXaci No levoFLOXac n 500 MG n 500 MG in 500 MG Vitamin D3 Vitamin D3 No Vitamin D3 5050913 [id number] UNIT/GM UNIT/GM UNIT/GM methylPREDN methylPREDN No methylPRED ISolone 4 ISolone 4 NISolone 4 MG MG MG Testosteron Testosteron No Testostero e Cypionate e Cypionate ne 200 MG/ML 200 MG/ML Cypionate 200 MG/ML Clopidogrel Clopidogrel No 1{table QD Clopidogre Bisulfate Bisulfate t} l 75 MG 75 MG Bisulfate 75 MG predniSONE predniSONE No 1{table QD predniSONE 10 MG 10 MG t} 10 MG Bisoprolol Bisoprolol No QD Bisoprolol Fumarate 5 Fumarate 5 Fumarate 5 MG MG MG prednisoLON prednisoLON No QD prednisoLO E 5 MG E 5 MG NE 5 MG Flonase Flonase No Flonase Vitamin C Vitamin C No Vitamin C Ventolin Ventolin No Ventolin HFA HFA HFA Vitamin D3 Vitamin D3 No Vitamin D3 [id number] UNIT/GM UNIT/GM UNIT/GM levoFLOXaci levoFLOXaci No levoFLOXac n 500 MG n 500 MG in 500 MG Clopidogrel Clopidogrel No 1{table QD Clopidogre Bisulfate Bisulfate t} l 75 MG 75 MG Bisulfate 75 MG Vitamin C Vitamin C No Vitamin C predniSONE predniSONE No 1{table QD predniSONE 10 MG 10 MG t} 10 MG methylPREDN methylPREDN No methylPRED ISolone 4 ISolone 4 NISolone 4 MG MG MG Bisoprolol Bisoprolol No QD Bisoprolol Fumarate 5 Fumarate 5 Fumarate 5 MG MG MG Crandall Crandall No 1{table QD Crandall Thyroid 90 Thyroid 90 t_on_an Thyroid 90 MG MG _empty_ MG stomach } Ventolin Ventolin No Ventolin HFA HFA HFA Bisoprolol- Bisoprolol- No Bisoprolol hydroCHLORO hydroCHLORO -hydroCHLO thiazide thiazide ROthiazide 2.5-6.25 MG 2.5-6.25 MG 2.5-6.25 MG Testosteron Testosteron No Testostero e Cypionate e Cypionate ne 200 MG/ML 200 MG/ML Cypionate 200 MG/ML Cholesterol Cholesterol No Cholestero l CoQ10 CoQ10 No CoQ10 Flonase Flonase No Flonase Tumersaid Tumersaid No Tumersaid Albuterol Albuterol No Albuterol Sulfate HFA Sulfate HFA Sulfate 108 (90 108 (90 HFA 108 Base) Base) (90 Base) MCG/ACT MCG/ACT MCG/ACT Azelastine Azelastine No Azelastine HCl 0.1 % HCl 0.1 % HCl 0.1 % CVS Aspirin CVS Aspirin No CVS Adult Low Adult Low Aspirin Dose 81 MG Dose 81 MG Adult Low Dose 81 MG Cyclobenzap Cyclobenzap No 1{table QD Cyclobenza rine HCl 10 rine HCl 10 t_at_be wayne HCl MG MG dtime_a 10 MG s_neede d} prednisoLON prednisoLON No QD prednisoLO E 5 MG E 5 MG NE 5 MG Zinc 25 MG Zinc 25 MG No 1{table QD Zinc 25 MG t} Esomeprazol Esomeprazol No Esomeprazo e Magnesium e Magnesium le 20 MG 20 MG Magnesium 20 MG prednisoLON prednisoLON No QD prednisoLO E 5 MG E 5 MG NE 5 MG Tumersaid Tumersaid No Tumersaid Esomeprazol Esomeprazol No Esomeprazo e Magnesium e Magnesium le 20 MG 20 MG Magnesium 20 MG Cholesterol Cholesterol No Cholestero l Cyclobenzap Cyclobenzap No 1{table QD Cyclobenza rine HCl 10 rine HCl 10 t_at_be wayne HCl MG MG dtime_a 10 MG s_neede d} Bisoprolol Bisoprolol No QD Bisoprolol Fumarate 5 Fumarate 5 Fumarate 5 MG MG MG Zinc 25 MG Zinc 25 MG No 1{table QD Zinc 25 MG t} CoQ10 CoQ10 No CoQ10 Clopidogrel Clopidogrel No 1{table QD Clopidogre Bisulfate Bisulfate t} l 75 MG 75 MG Bisulfate 75 MG methylPREDN methylPREDN No methylPRED ISolone 4 ISolone 4 NISolone 4 MG MG MG Testosteron Testosteron No Testostero e Cypionate e Cypionate ne 200 MG/ML 200 MG/ML Cypionate 200 MG/ML Crandall Crandall No 1{table QD Crandall Thyroid 90 Thyroid 90 t_on_an Thyroid 90 MG MG _empty_ MG stomach } Bisoprolol- Bisoprolol- No Bisoprolol hydroCHLORO hydroCHLORO -hydroCHLO thiazide thiazide ROthiazide 2.5-6.25 MG 2.5-6.25 MG 2.5-6.25 MG levoFLOXaci levoFLOXaci No levoFLOXac n 500 MG n 500 MG in 500 MG Cyclobenzap Cyclobenzap No 1{table QD Cyclobenza rine HCl 10 rine HCl 10 t_at_be wayne HCl MG MG dtime_a 10 MG s_neede d} CVS Aspirin CVS Aspirin No CVS Adult Low Adult Low Aspirin Dose 81 MG Dose 81 MG Adult Low Dose 81 MG Ventolin Ventolin No Ventolin HFA HFA HFA Vitamin C Vitamin C No Vitamin C Bisoprolol Bisoprolol No QD Bisoprolol Fumarate 5 Fumarate 5 Fumarate 5 MG MG MG Flonase Flonase No Flonase predniSONE predniSONE No 1{table QD predniSONE 10 MG 10 MG t} 10 MG Vitamin D3 Vitamin D3 No Vitamin D3 [id number] UNIT/GM UNIT/GM UNIT/GM Albuterol Albuterol No Albuterol Sulfate HFA Sulfate HFA Sulfate 108 (90 108 (90 HFA 108 Base) Base) (90 Base) MCG/ACT MCG/ACT MCG/ACT Azelastine Azelastine No Azelastine HCl 0.1 % HCl 0.1 % HCl 0.1 % Bisoprolol- Bisoprolol- No Bisoprolol hydroCHLORO hydroCHLORO -hydroCHLO thiazide thiazide ROthiazide 2.5-6.25 MG 2.5-6.25 MG 2.5-6.25 MG Vitamin D3 Vitamin D3 No Vitamin D3 [id number] [id number] UNIT/GM UNIT/GM UNIT/GM predniSONE predniSONE No 1{table QD predniSONE 10 MG 10 MG t} 10 MG Vitamin D3 Vitamin D3 No Vitamin D3 [id number] UNIT/GM UNIT/GM UNIT/GM CVS Aspirin CVS Aspirin No CVS Adult Low Adult Low Aspirin Dose 81 MG Dose 81 MG Adult Low Dose 81 MG Cyclobenzap Cyclobenzap No 1{table QD Cyclobenza rine HCl 10 rine HCl 10 t_at_be wayne HCl MG MG dtime_a 10 MG s_neede d} Zinc 25 MG Zinc 25 MG No 1{table QD Zinc 25 MG t} CoQ10 CoQ10 No CoQ10 Clopidogrel Clopidogrel No 1{table QD Clopidogre Bisulfate Bisulfate t} l 75 MG 75 MG Bisulfate 75 MG prednisoLON prednisoLON No QD prednisoLO E 5 MG E 5 MG NE 5 MG Bisoprolol Bisoprolol No QD Bisoprolol Fumarate 5 Fumarate 5 Fumarate 5 MG MG MG levoFLOXaci levoFLOXaci No levoFLOXac n 500 MG n 500 MG in 500 MG Bisoprolol- Bisoprolol- No Bisoprolol hydroCHLORO hydroCHLORO -hydroCHLO thiazide thiazide ROthiazide 2.5-6.25 MG 2.5-6.25 MG 2.5-6.25 MG Albuterol Albuterol No Albuterol Sulfate HFA Sulfate HFA Sulfate 108 (90 108 (90 HFA 108 Base) Base) (90 Base) MCG/ACT MCG/ACT MCG/ACT Flonase Flonase No Flonase methylPREDN methylPREDN No methylPRED ISolone 4 ISolone 4 NISolone 4 MG MG MG Tumersaid Tumersaid No Tumersaid Tumersaid Tumersaid No Tumersaid Cholesterol Cholesterol No Cholestero l Ventolin Ventolin No Ventolin HFA HFA HFA Azelastine Azelastine No Azelastine HCl 0.1 % HCl 0.1 % HCl 0.1 % Clopidogrel Clopidogrel No 1{table QD Clopidogre Bisulfate Bisulfate t} l 75 MG 75 MG Bisulfate 75 MG Testosteron Testosteron No Testostero e Cypionate e Cypionate ne 200 MG/ML 200 MG/ML Cypionate 200 MG/ML Vitamin C Vitamin C No Vitamin C Esomeprazol Esomeprazol No Esomeprazo e Magnesium e Magnesium le 20 MG 20 MG Magnesium 20 MG Crandall Crandall No 1{table QD Crandall Thyroid 90 Thyroid 90 t_on_an Thyroid 90 MG MG _empty_ MG stomach } methylPREDN methylPREDN No methylPRED ISolone 4 ISolone 4 NISolone 4 MG MG MG predniSONE predniSONE No 1{table QD predniSONE 10 MG 10 MG t} 10 MG CoQ10 CoQ10 No CoQ10 Vitamin D3 Vitamin D3 No Vitamin D3 [id number] UNIT/GM UNIT/GM UNIT/GM CVS Aspirin CVS Aspirin No CVS Adult Low Adult Low Aspirin Dose 81 MG Dose 81 MG Adult Low Dose 81 MG Cyclobenzap Cyclobenzap No 1{table QD Cyclobenza rine HCl 10 rine HCl 10 t_at_be wayne HCl MG MG dtime_a 10 MG s_neede d} Zinc 25 MG Zinc 25 MG No 1{table QD Zinc 25 MG t} CoQ10 CoQ10 No CoQ10 prednisoLON prednisoLON No QD prednisoLO E 5 MG E 5 MG NE 5 MG Bisoprolol Bisoprolol No QD Bisoprolol Fumarate 5 Fumarate 5 Fumarate 5 MG MG MG levoFLOXaci levoFLOXaci No levoFLOXac n 500 MG n 500 MG in 500 MG levoFLOXaci levoFLOXaci No levoFLOXac n 500 MG n 500 MG in 500 MG Bisoprolol- Bisoprolol- No Bisoprolol hydroCHLORO hydroCHLORO -hydroCHLO thiazide thiazide ROthiazide 2.5-6.25 MG 2.5-6.25 MG 2.5-6.25 MG Albuterol Albuterol No Albuterol Sulfate HFA Sulfate HFA Sulfate 108 (90 108 (90 HFA 108 Base) Base) (90 Base) MCG/ACT MCG/ACT MCG/ACT Flonase Flonase No Flonase methylPREDN methylPREDN No methylPRED ISolone 4 ISolone 4 NISolone 4 MG MG MG Tumersaid Tumersaid No Tumersaid Cholesterol Cholesterol No Cholestero l Ventolin Ventolin No Ventolin HFA HFA HFA Azelastine Azelastine No Azelastine HCl 0.1 % HCl 0.1 % HCl 0.1 % Clopidogrel Clopidogrel No 1{table QD Clopidogre Bisulfate Bisulfate t} l 75 MG 75 MG Bisulfate 75 MG Testosteron Testosteron No Testostero e Cypionate e Cypionate ne 200 MG/ML 200 MG/ML Cypionate 200 MG/ML Vitamin C Vitamin C No Vitamin C Esomeprazol Esomeprazol No Esomeprazo e Magnesium e Magnesium le 20 MG 20 MG Magnesium 20 MG Crandall Crandall No 1{table QD Crandall Thyroid 90 Thyroid 90 t_on_an Thyroid 90 MG MG _empty_ MG stomach } Crandall Crandall No 1{table QD Crandall Thyroid 90 Thyroid 90 t_on_an Thyroid 90 MG MG _empty_ MG stomach } predniSONE predniSONE No 1{table QD predniSONE 10 MG 10 MG t} 10 MG Vitamin D3 Vitamin D3 No Vitamin D3 [id number] [id number] UNIT/GM UNIT/GM UNIT/GM CVS Aspirin CVS Aspirin No CVS Adult Low Adult Low Aspirin Dose 81 MG Dose 81 MG Adult Low Dose 81 MG Cyclobenzap Cyclobenzap No 1{table QD Cyclobenza rine HCl 10 rine HCl 10 t_at_be wayne HCl MG MG dtime_a 10 MG s_neede d} Zinc 25 MG Zinc 25 MG No 1{table QD Zinc 25 MG t} CoQ10 CoQ10 No CoQ10 prednisoLON prednisoLON No QD prednisoLO E 5 MG E 5 MG NE 5 MG Bisoprolol Bisoprolol No QD Bisoprolol Fumarate 5 Fumarate 5 Fumarate 5 MG MG MG levoFLOXaci levoFLOXaci No levoFLOXac n 500 MG n 500 MG in 500 MG Bisoprolol- Bisoprolol- No Bisoprolol hydroCHLORO hydroCHLORO -hydroCHLO thiazide thiazide ROthiazide 2.5-6.25 MG 2.5-6.25 MG 2.5-6.25 MG Albuterol Albuterol No Albuterol Sulfate HFA Sulfate HFA Sulfate 108 (90 108 (90 HFA 108 Base) Base) (90 Base) MCG/ACT MCG/ACT MCG/ACT Flonase Flonase No Flonase methylPREDN methylPREDN No methylPRED ISolone 4 ISolone 4 NISolone 4 MG MG MG Tumersaid Tumersaid No Tumersaid Cholesterol Cholesterol No Cholestero l Ventolin Ventolin No Ventolin HFA HFA HFA Albuterol Albuterol No Albuterol Sulfate HFA Sulfate HFA Sulfate 108 (90 108 (90 HFA 108 Base) Base) (90 Base) MCG/ACT MCG/ACT MCG/ACT Azelastine Azelastine No Azelastine HCl 0.1 % HCl 0.1 % HCl 0.1 % Clopidogrel Clopidogrel No 1{table QD Clopidogre Bisulfate Bisulfate t} l 75 MG 75 MG Bisulfate 75 MG Testosteron Testosteron No Testostero e Cypionate e Cypionate ne 200 MG/ML 200 MG/ML Cypionate 200 MG/ML Vitamin C Vitamin C No Vitamin C Esomeprazol Esomeprazol No Esomeprazo e Magnesium e Magnesium le 20 MG 20 MG Magnesium 20 MG Crandall Crandall No 1{table QD Crandall Thyroid 90 Thyroid 90 t_on_an Thyroid 90 MG MG _empty_ MG stomach } Zinc 25 MG Zinc 25 MG No 1{table QD Zinc 25 MG t} CVS Aspirin CVS Aspirin No CVS Adult Low Adult Low Aspirin Dose 81 MG Dose 81 MG Adult Low Dose 81 MG Ventolin Ventolin No Ventolin HFA HFA HFA Tumersaid Tumersaid No Tumersaid Testosteron Testosteron No Testostero e Cypionate e Cypionate ne 200 MG/ML 200 MG/ML Cypionate 200 MG/ML prednisoLON prednisoLON No QD prednisoLO E 5 MG E 5 MG NE 5 MG Bisoprolol Bisoprolol No QD Bisoprolol Fumarate 5 Fumarate 5 Fumarate 5 MG MG MG Cholesterol Cholesterol No Cholestero l Clopidogrel Clopidogrel No 1{table QD Clopidogre Bisulfate Bisulfate t} l 75 MG 75 MG Bisulfate 75 MG Cyclobenzap Cyclobenzap No 1{table QD Cyclobenza rine HCl 10 rine HCl 10 t_at_be wayne HCl MG MG dtime_a 10 MG s_neede d} Esomeprazol Esomeprazol No Esomeprazo e Magnesium e Magnesium le 20 MG 20 MG Magnesium 20 MG Azelastine Azelastine No Azelastine HCl 0.1 % HCl 0.1 % HCl 0.1 % Vitamin C Vitamin C No Vitamin C Azelastine Azelastine No Azelastine HCl 0.1 % HCl 0.1 % HCl 0.1 % Zinc 25 MG Zinc 25 MG No 1{table QD Zinc 25 MG t} predniSONE predniSONE No 1{table QD predniSONE 10 MG 10 MG t} 10 MG Crandall Crandall No 1{table QD Crandall Thyroid 90 Thyroid 90 t_on_an Thyroid 90 MG MG _empty_ MG stomach } CoQ10 CoQ10 No CoQ10 Albuterol Albuterol No Albuterol Sulfate HFA Sulfate HFA Sulfate 108 (90 108 (90 HFA 108 Base) Base) (90 Base) MCG/ACT MCG/ACT MCG/ACT Flonase Flonase No Flonase Vitamin D3 Vitamin D3 No Vitamin D3 [id number] UNIT/GM UNIT/GM UNIT/GM levoFLOXaci levoFLOXaci No levoFLOXac n 500 MG n 500 MG in 500 MG Bisoprolol- Bisoprolol- No Bisoprolol hydroCHLORO hydroCHLORO -hydroCHLO thiazide thiazide ROthiazide 2.5-6.25 MG 2.5-6.25 MG 2.5-6.25 MG predniSONE predniSONE No 1{table QD predniSONE 10 MG 10 MG t} 10 MG methylPREDN methylPREDN No methylPRED ISolone 4 ISolone 4 NISolone 4 MG MG MG Testosteron Testosteron No Testostero e Cypionate e Cypionate ne 200 MG/ML 200 MG/ML Cypionate 200 MG/ML CVS Aspirin CVS Aspirin No CVS Adult Low Adult Low Aspirin Dose 81 MG Dose 81 MG Adult Low Dose 81 MG Ventolin Ventolin No Ventolin HFA HFA HFA Tumersaid Tumersaid No Tumersaid prednisoLON prednisoLON No QD prednisoLO E 5 MG E 5 MG NE 5 MG Ventolin Ventolin No Ventolin HFA HFA HFA Bisoprolol Bisoprolol No QD Bisoprolol Fumarate 5 Fumarate 5 Fumarate 5 MG MG MG Cholesterol Cholesterol No Cholestero l Clopidogrel Clopidogrel No 1{table QD Clopidogre Bisulfate Bisulfate t} l 75 MG 75 MG Bisulfate 75 MG Cyclobenzap Cyclobenzap No 1{table QD Cyclobenza rine HCl 10 rine HCl 10 t_at_be wayne HCl MG MG dtime_a 10 MG s_neede d} Esomeprazol Esomeprazol No Esomeprazo e Magnesium e Magnesium le 20 MG 20 MG Magnesium 20 MG Azelastine Azelastine No Azelastine HCl 0.1 % HCl 0.1 % HCl 0.1 % Vitamin C Vitamin C No Vitamin C Zinc 25 MG Zinc 25 MG No 1{table QD Zinc 25 MG t} Esomeprazol Esomeprazol No Esomeprazo e Magnesium e Magnesium le 20 MG 20 MG Magnesium 20 MG predniSONE predniSONE No 1{table QD predniSONE 10 MG 10 MG t} 10 MG Crandall Crandall No 1{table QD Crandall Thyroid 90 Thyroid 90 t_on_an Thyroid 90 MG MG _empty_ MG stomach } CoQ10 CoQ10 No CoQ10 Albuterol Albuterol No Albuterol Sulfate HFA Sulfate HFA Sulfate 108 (90 108 (90 HFA 108 Base) Base) (90 Base) MCG/ACT MCG/ACT MCG/ACT Flonase Flonase No Flonase Vitamin D3 Vitamin D3 No Vitamin D3 [id number] UNIT/GM UNIT/GM UNIT/GM levoFLOXaci levoFLOXaci No levoFLOXac n 500 MG n 500 MG in 500 MG Bisoprolol- Bisoprolol- No Bisoprolol hydroCHLORO hydroCHLORO -hydroCHLO thiazide thiazide ROthiazide 2.5-6.25 MG 2.5-6.25 MG 2.5-6.25 MG methylPREDN methylPREDN No methylPRED ISolone 4 ISolone 4 NISolone 4 MG MG MG prednisoLON prednisoLON No QD prednisoLO E 5 MG E 5 MG NE 5 MG Testosteron Testosteron No Testostero e Cypionate e Cypionate ne 200 MG/ML 200 MG/ML Cypionate 200 MG/ML CVS Aspirin CVS Aspirin No CVS Adult Low Adult Low Aspirin Dose 81 MG Dose 81 MG Adult Low Dose 81 MG Bisoprolol- Bisoprolol- No Bisoprolol hydroCHLORO hydroCHLORO -hydroCHLO thiazide thiazide ROthiazide 2.5-6.25 MG 2.5-6.25 MG 2.5-6.25 MG Vitamin D3 Vitamin D3 No Vitamin D3 [id number] UNIT/GM UNIT/GM UNIT/GM Ventolin Ventolin No Ventolin HFA HFA HFA predniSONE predniSONE No 1{table QD predniSONE 10 MG 10 MG t} 10 MG methylPREDN methylPREDN No methylPRED ISolone 4 ISolone 4 NISolone 4 MG MG MG CoQ10 CoQ10 No CoQ10 Bisoprolol Bisoprolol No QD Bisoprolol Fumarate 5 Fumarate 5 Fumarate 5 MG MG MG Cholesterol Cholesterol No Cholestero l Cyclobenzap Cyclobenzap No 1{table QD Cyclobenza rine HCl 10 rine HCl 10 t_at_be wayne HCl MG MG dtime_a 10 MG s_neede d} Clopidogrel Clopidogrel No 1{table QD Clopidogre Bisulfate Bisulfate t} l 75 MG 75 MG Bisulfate 75 MG Tumersaid Tumersaid No Tumersaid Crandall Crandall No 1{table QD Crandall Thyroid 90 Thyroid 90 t_on_an Thyroid 90 MG MG _empty_ MG stomach } Esomeprazol Esomeprazol No Esomeprazo e Magnesium e Magnesium le 20 MG 20 MG Magnesium 20 MG prednisoLON prednisoLON No QD prednisoLO E 5 MG E 5 MG NE 5 MG Testosteron Testosteron No Testostero e Cypionate e Cypionate ne 200 MG/ML 200 MG/ML Cypionate 200 MG/ML Azelastine Azelastine No Azelastine HCl 0.1 % HCl 0.1 % HCl 0.1 % Flonase Flonase No Flonase levoFLOXaci levoFLOXaci No levoFLOXac n 500 MG n 500 MG in 500 MG Albuterol Albuterol No Albuterol Sulfate HFA Sulfate HFA Sulfate 108 (90 108 (90 HFA 108 Base) Base) (90 Base) MCG/ACT MCG/ACT MCG/ACT Zinc 25 MG Zinc 25 MG No 1{table QD Zinc 25 MG t} Cholesterol Cholesterol No Cholestero l CVS Aspirin CVS Aspirin No CVS Adult Low Adult Low Aspirin Dose 81 MG Dose 81 MG Adult Low Dose 81 MG Flonase Flonase No Flonase Vitamin C Vitamin C No Vitamin C Vitamin C Vitamin C No Vitamin C Bisoprolol Bisoprolol No QD Bisoprolol Fumarate 5 Fumarate 5 Fumarate 5 MG MG MG Cyclobenzap Cyclobenzap No 1{table QD Cyclobenza rine HCl 10 rine HCl 10 t_at_be wayne HCl MG MG dtime_a 10 MG s_neede d} Bisoprolol- Bisoprolol- No Bisoprolol hydroCHLORO hydroCHLORO -hydroCHLO thiazide thiazide ROthiazide 2.5-6.25 MG 2.5-6.25 MG 2.5-6.25 MG Vitamin D3 Vitamin D3 No Vitamin D3 [id number] UNIT/GM UNIT/GM UNIT/GM Clopidogrel Clopidogrel No 1{table QD Clopidogre Bisulfate Bisulfate t} l 75 MG 75 MG Bisulfate 75 MG Tumersaid Tumersaid No Tumersaid methylPREDN methylPREDN No methylPRED ISolone 4 ISolone 4 NISolone 4 MG MG MG CoQ10 CoQ10 No CoQ10 levoFLOXaci levoFLOXaci No levoFLOXac n 500 MG n 500 MG in 500 MG Crandall Crandall No 1{table QD Crandall Thyroid 90 Thyroid 90 t_on_an Thyroid 90 MG MG _empty_ MG stomach } Albuterol Albuterol No Albuterol Sulfate HFA Sulfate HFA Sulfate 108 (90 108 (90 HFA 108 Base) Base) (90 Base) MCG/ACT MCG/ACT MCG/ACT Zinc 25 MG Zinc 25 MG No 1{table QD Zinc 25 MG t} Testosteron Testosteron No Testostero e Cypionate e Cypionate ne 200 MG/ML 200 MG/ML Cypionate 200 MG/ML Azelastine Azelastine No Azelastine HCl 0.1 % HCl 0.1 % HCl 0.1 % predniSONE predniSONE No 1{table QD predniSONE 10 MG 10 MG t} 10 MG Ventolin Ventolin No Ventolin HFA HFA HFA Esomeprazol Esomeprazol No Esomeprazo e Magnesium e Magnesium le 20 MG 20 MG Magnesium 20 MG prednisoLON prednisoLON No QD prednisoLO E 5 MG E 5 MG NE 5 MG CVS Aspirin CVS Aspirin No CVS Adult Low Adult Low Aspirin Dose 81 MG Dose 81 MG Adult Low Dose 81 MG Cholesterol Cholesterol No Cholestero l Flonase Flonase No Flonase Vitamin C Vitamin C No Vitamin C Vitamin C Vitamin C No Vitamin C Ventolin Ventolin No Ventolin HFA HFA HFA Crandall Crandall No 1{table QD Crandall Thyroid 90 Thyroid 90 t_on_an Thyroid 90 MG MG _empty_ MG stomach } Flonase Flonase No Flonase Bisoprolol- Bisoprolol- No Bisoprolol hydroCHLORO hydroCHLORO -hydroCHLO thiazide thiazide ROthiazide 2.5-6.25 MG 2.5-6.25 MG 2.5-6.25 MG Tumersaid Tumersaid No Tumersaid Bisoprolol Bisoprolol No QD Bisoprolol Fumarate 5 Fumarate 5 Fumarate 5 MG MG MG Vitamin D3 Vitamin D3 No Vitamin D3 [id number] UNIT/GM UNIT/GM UNIT/GM Albuterol Albuterol No Albuterol Sulfate HFA Sulfate HFA Sulfate 108 (90 108 (90 HFA 108 Base) Base) (90 Base) MCG/ACT MCG/ACT MCG/ACT methylPREDN methylPREDN No methylPRED ISolone 4 ISolone 4 NISolone 4 MG MG MG Zinc 25 MG Zinc 25 MG No 1{table QD Zinc 25 MG t} predniSONE predniSONE No 1{table QD predniSONE 10 MG 10 MG t} 10 MG CoQ10 CoQ10 No CoQ10 Testosteron Testosteron No Testostero e Cypionate e Cypionate ne 200 MG/ML 200 MG/ML Cypionate 200 MG/ML levoFLOXaci levoFLOXaci No levoFLOXac n 500 MG n 500 MG in 500 MG Esomeprazol Esomeprazol No Esomeprazo e Magnesium e Magnesium le 20 MG 20 MG Magnesium 20 MG Cyclobenzap Cyclobenzap No 1{table QD Cyclobenza rine HCl 10 rine HCl 10 t_at_be wayne HCl MG MG dtime_a 10 MG s_neede d} Clopidogrel Clopidogrel No 1{table QD Clopidogre Bisulfate Bisulfate t} l 75 MG 75 MG Bisulfate 75 MG prednisoLON prednisoLON No QD prednisoLO E 5 MG E 5 MG NE 5 MG Azelastine Azelastine No Azelastine HCl 0.1 % HCl 0.1 % HCl 0.1 % Cholesterol Cholesterol No Cholestero l CVS Aspirin CVS Aspirin No CVS Adult Low Adult Low Aspirin Dose 81 MG Dose 81 MG Adult Low Dose 81 MG Crandall Crandall No 1{table QD Crandall Thyroid 90 Thyroid 90 t_on_an Thyroid 90 MG MG _empty_ MG stomach } Flonase Flonase No Flonase Esomeprazol Esomeprazol No Esomeprazo e Magnesium e Magnesium le 20 MG 20 MG Magnesium 20 MG Testosteron Testosteron No Testostero e Cypionate e Cypionate ne 200 MG/ML 200 MG/ML Cypionate 200 MG/ML Tumersaid Tumersaid No Tumersaid Bisoprolol Bisoprolol No QD Bisoprolol Fumarate 5 Fumarate 5 Fumarate 5 MG MG MG Vitamin C Vitamin C No Vitamin C Ventolin Ventolin No Ventolin HFA HFA HFA Bisoprolol- Bisoprolol- No Bisoprolol hydroCHLORO hydroCHLORO -hydroCHLO thiazide thiazide ROthiazide 2.5-6.25 MG 2.5-6.25 MG 2.5-6.25 MG Albuterol Albuterol No Albuterol Sulfate HFA Sulfate HFA Sulfate 108 (90 108 (90 HFA 108 Base) Base) (90 Base) MCG/ACT MCG/ACT MCG/ACT methylPREDN methylPREDN No methylPRED ISolone 4 ISolone 4 NISolone 4 MG MG MG CoQ10 CoQ10 No CoQ10 predniSONE predniSONE No 1{table QD predniSONE 10 MG 10 MG t} 10 MG Vitamin D3 Vitamin D3 No Vitamin D3 [id number] UNIT/GM UNIT/GM UNIT/GM levoFLOXaci levoFLOXaci No levoFLOXac n 500 MG n 500 MG in 500 MG Zinc 25 MG Zinc 25 MG No 1{table QD Zinc 25 MG t} Cyclobenzap Cyclobenzap No 1{table QD Cyclobenza rine HCl 10 rine HCl 10 t_at_be wayne HCl MG MG dtime_a 10 MG s_neede d} Clopidogrel Clopidogrel No 1{table QD Clopidogre Bisulfate Bisulfate t} l 75 MG 75 MG Bisulfate 75 MG prednisoLON prednisoLON No QD prednisoLO E 5 MG E 5 MG NE 5 MG Azelastine Azelastine No Azelastine HCl 0.1 % HCl 0.1 % HCl 0.1 % Cholesterol Cholesterol No Cholestero l CVS Aspirin CVS Aspirin No CVS Adult Low Adult Low Aspirin Dose 81 MG Dose 81 MG Adult Low Dose 81 MG Crandall Crandall No 1{table QD Crandall Thyroid 90 Thyroid 90 t_on_an Thyroid 90 MG MG _empty_ MG stomach } Flonase Flonase No Flonase Esomeprazol Esomeprazol No Esomeprazo e Magnesium e Magnesium le 20 MG 20 MG Magnesium 20 MG Testosteron Testosteron No Testostero e Cypionate e Cypionate ne 200 MG/ML 200 MG/ML Cypionate 200 MG/ML Tumersaid Tumersaid No Tumersaid Bisoprolol Bisoprolol No QD Bisoprolol Fumarate 5 Fumarate 5 Fumarate 5 MG MG MG Vitamin C Vitamin C No Vitamin C Ventolin Ventolin No Ventolin HFA HFA HFA Bisoprolol- Bisoprolol- No Bisoprolol hydroCHLORO hydroCHLORO -hydroCHLO thiazide thiazide ROthiazide 2.5-6.25 MG 2.5-6.25 MG 2.5-6.25 MG Albuterol Albuterol No Albuterol Sulfate HFA Sulfate HFA Sulfate 108 (90 108 (90 HFA 108 Base) Base) (90 Base) MCG/ACT MCG/ACT MCG/ACT methylPREDN methylPREDN No methylPRED ISolone 4 ISolone 4 NISolone 4 MG MG MG CoQ10 CoQ10 No CoQ10 predniSONE predniSONE No 1{table QD predniSONE 10 MG 10 MG t} 10 MG Vitamin D3 Vitamin D3 No Vitamin D3 [id number] UNIT/GM UNIT/GM UNIT/GM levoFLOXaci levoFLOXaci No levoFLOXac n 500 MG n 500 MG in 500 MG Zinc 25 MG Zinc 25 MG No 1{table QD Zinc 25 MG t} Cyclobenzap Cyclobenzap No 1{table QD Cyclobenza rine HCl 10 rine HCl 10 t_at_be wayne HCl MG MG dtime_a 10 MG s_neede d} Clopidogrel Clopidogrel No 1{table QD Clopidogre Bisulfate Bisulfate t} l 75 MG 75 MG Bisulfate 75 MG Vitamin C Vitamin C No Vitamin C prednisoLON prednisoLON No QD prednisoLO E 5 MG E 5 MG NE 5 MG Azelastine Azelastine No Azelastine HCl 0.1 % HCl 0.1 % HCl 0.1 % Cholesterol Cholesterol No Cholestero l CVS Aspirin CVS Aspirin No CVS Adult Low Adult Low Aspirin Dose 81 MG Dose 81 MG Adult Low Dose 81 MG Ventolin Ventolin No Ventolin HFA HFA HFA Crandall Crandall No 1{table QD Crandall Thyroid 90 Thyroid 90 t_on_an Thyroid 90 MG MG _empty_ MG stomach } Flonase Flonase No Flonase Esomeprazol Esomeprazol No Esomeprazo e Magnesium e Magnesium le 20 MG 20 MG Magnesium 20 MG Testosteron Testosteron No Testostero e Cypionate e Cypionate ne 200 MG/ML 200 MG/ML Cypionate 200 MG/ML Tumersaid Tumersaid No Tumersaid Bisoprolol Bisoprolol No QD Bisoprolol Fumarate 5 Fumarate 5 Fumarate 5 MG MG MG Vitamin C Vitamin C No Vitamin C Ventolin Ventolin No Ventolin HFA HFA HFA Crandall Crandall No 1{table QD Crandall Thyroid 90 Thyroid 90 t_on_an Thyroid 90 MG MG _empty_ MG stomach } Bisoprolol- Bisoprolol- No Bisoprolol hydroCHLORO hydroCHLORO -hydroCHLO thiazide thiazide ROthiazide 2.5-6.25 MG 2.5-6.25 MG 2.5-6.25 MG Albuterol Albuterol No Albuterol Sulfate HFA Sulfate HFA Sulfate 108 (90 108 (90 HFA 108 Base) Base) (90 Base) MCG/ACT MCG/ACT MCG/ACT methylPREDN methylPREDN No methylPRED ISolone 4 ISolone 4 NISolone 4 MG MG MG CoQ10 CoQ10 No CoQ10 predniSONE predniSONE No 1{table QD predniSONE 10 MG 10 MG t} 10 MG Vitamin D3 Vitamin D3 No Vitamin D3 [id number] UNIT/GM UNIT/GM UNIT/GM Flonase Flonase No Flonase levoFLOXaci levoFLOXaci No levoFLOXac n 500 MG n 500 MG in 500 MG Zinc 25 MG Zinc 25 MG No 1{table QD Zinc 25 MG t} Cyclobenzap Cyclobenzap No 1{table QD Cyclobenza rine HCl 10 rine HCl 10 t_at_be wayne HCl MG MG dtime_a 10 MG s_neede d} Clopidogrel Clopidogrel No 1{table QD Clopidogre Bisulfate Bisulfate t} l 75 MG 75 MG Bisulfate 75 MG prednisoLON prednisoLON No QD prednisoLO E 5 MG E 5 MG NE 5 MG Azelastine Azelastine No Azelastine HCl 0.1 % HCl 0.1 % HCl 0.1 % Cholesterol Cholesterol No Cholestero l CVS Aspirin CVS Aspirin No CVS Adult Low Adult Low Aspirin Dose 81 MG Dose 81 MG Adult Low Dose 81 MG Bisoprolol- Bisoprolol- No Bisoprolol hydroCHLORO hydroCHLORO -hydroCHLO thiazide thiazide ROthiazide 2.5-6.25 MG 2.5-6.25 MG 2.5-6.25 MG predniSONE predniSONE No 1{table QD predniSONE 10 MG 10 MG t} 10 MG Ventolin Ventolin No Ventolin HFA HFA HFA Cyclobenzap Cyclobenzap No 1{table QD Cyclobenza rine HCl 10 rine HCl 10 t_at_be wayne HCl MG MG dtime_a 10 MG s_neede d} methylPREDN methylPREDN No methylPRED ISolone 4 ISolone 4 NISolone 4 MG MG MG Vitamin C Vitamin C No Vitamin C levoFLOXaci levoFLOXaci No levoFLOXac n 500 MG n 500 MG in 500 MG Flonase Flonase No Flonase Bisoprolol- Bisoprolol- No Bisoprolol hydroCHLORO hydroCHLORO -hydroCHLO thiazide thiazide ROthiazide 2.5-6.25 MG 2.5-6.25 MG 2.5-6.25 MG Tumersaid Tumersaid No Tumersaid Crandall Crandall No 1{table QD Crandall Thyroid 90 Thyroid 90 t_on_an Thyroid 90 MG MG _empty_ MG stomach } Clopidogrel Clopidogrel No 1{table QD Clopidogre Bisulfate Bisulfate t} l 75 MG 75 MG Bisulfate 75 MG Tumersaid Tumersaid No Tumersaid Cholesterol Cholesterol No Cholestero l Zinc 25 MG Zinc 25 MG No 1{table QD Zinc 25 MG t} Vitamin D3 Vitamin D3 No Vitamin D3 [id number] UNIT/GM UNIT/GM UNIT/GM Bisoprolol Bisoprolol No QD Bisoprolol Fumarate 5 Fumarate 5 Fumarate 5 MG MG MG Esomeprazol Esomeprazol No Esomeprazo e Magnesium e Magnesium le 20 MG 20 MG Magnesium 20 MG CVS Aspirin CVS Aspirin No CVS Adult Low Adult Low Aspirin Dose 81 MG Dose 81 MG Adult Low Dose 81 MG Bisoprolol Bisoprolol No QD Bisoprolol Fumarate 5 Fumarate 5 Fumarate 5 MG MG MG CoQ10 CoQ10 No CoQ10 Testosteron Testosteron No Testostero e Cypionate e Cypionate ne 200 MG/ML 200 MG/ML Cypionate 200 MG/ML prednisoLON prednisoLON No QD prednisoLO E 5 MG E 5 MG NE 5 MG Azelastine Azelastine No Azelastine HCl 0.1 % HCl 0.1 % HCl 0.1 % Albuterol Albuterol No Albuterol Sulfate HFA Sulfate HFA Sulfate 108 (90 108 (90 HFA 108 Base) Base) (90 Base) MCG/ACT MCG/ACT MCG/ACT Vitamin D3 Vitamin D3 No Vitamin D3 [id number] UNIT/GM UNIT/GM UNIT/GM Cyclobenzap Cyclobenzap No 1{table QD Cyclobenza rine HCl 10 rine HCl 10 t_at_be wayne HCl MG MG dtime_a 10 MG s_neede d} Albuterol Albuterol No Albuterol Sulfate HFA Sulfate HFA Sulfate 108 (90 108 (90 HFA 108 Base) Base) (90 Base) MCG/ACT MCG/ACT MCG/ACT CVS Aspirin CVS Aspirin No CVS Adult Low Adult Low Aspirin Dose 81 MG Dose 81 MG Adult Low Dose 81 MG Albuterol Albuterol No Albuterol Sulfate HFA Sulfate HFA Sulfate 108 (90 108 (90 HFA 108 Base) Base) (90 Base) MCG/ACT MCG/ACT MCG/ACT Clopidogrel Clopidogrel No 1{table QD Clopidogre Bisulfate Bisulfate t} l 75 MG 75 MG Bisulfate 75 MG prednisoLON prednisoLON No QD prednisoLO E 5 MG E 5 MG NE 5 MG predniSONE predniSONE No 1{table QD predniSONE 10 MG 10 MG t} 10 MG Cholesterol Cholesterol No Cholestero l levoFLOXaci levoFLOXaci No levoFLOXac n 500 MG n 500 MG in 500 MG Vitamin C Vitamin C No Vitamin C Ventolin Ventolin No Ventolin HFA HFA HFA methylPREDN methylPREDN No methylPRED ISolone 4 ISolone 4 NISolone 4 MG MG MG Vitamin D3 Vitamin D3 No Vitamin D3 [id number] UNIT/GM UNIT/GM UNIT/GM Flonase Flonase No Flonase CoQ10 CoQ10 No CoQ10 Azelastine Azelastine No Azelastine HCl 0.1 % HCl 0.1 % HCl 0.1 % Bisoprolol- Bisoprolol- No Bisoprolol hydroCHLORO hydroCHLORO -hydroCHLO thiazide thiazide ROthiazide 2.5-6.25 MG 2.5-6.25 MG 2.5-6.25 MG Tumersaid Tumersaid No Tumersaid Testosteron Testosteron No Testostero e Cypionate e Cypionate ne 200 MG/ML 200 MG/ML Cypionate 200 MG/ML methylPREDN methylPREDN No methylPRED ISolone 4 ISolone 4 NISolone 4 MG MG MG Zinc 25 MG Zinc 25 MG No 1{table QD Zinc 25 MG t} Zinc 25 MG Zinc 25 MG No 1{table QD Zinc 25 MG t} Bisoprolol Bisoprolol No QD Bisoprolol Fumarate 5 Fumarate 5 Fumarate 5 MG MG MG Esomeprazol Esomeprazol No Esomeprazo e Magnesium e Magnesium le 20 MG 20 MG Magnesium 20 MG Crandall Crandall No 1{table QD Crandall Thyroid 90 Thyroid 90 t_on_an Thyroid 90 MG MG _empty_ MG stomach } Cyclobenzap Cyclobenzap No 1{table QD Cyclobenza rine HCl 10 rine HCl 10 t_at_be wayne HCl MG MG dtime_a 10 MG s_neede d} Albuterol Albuterol No Albuterol Sulfate HFA Sulfate HFA Sulfate 108 (90 108 (90 HFA 108 Base) Base) (90 Base) MCG/ACT MCG/ACT MCG/ACT predniSONE predniSONE No 1{table QD predniSONE 10 MG 10 MG t} 10 MG Tamsulosin Tamsulosin 2022- No 1{capsu QD Tamsulosin HCl 0.4 MG HCl 0.4 MG 03-07 le} HCl 0.4 MG 00:00 :00 Tamsulosin Tamsulosin 2022- No 1{capsu QD Tamsulosin HCl 0.4 MG HCl 0.4 MG 03-07 le} HCl 0.4 MG 00:00 :00 Tamsulosin Tamsulosin 2022- No 1{capsu QD Tamsulosin HCl 0.4 MG HCl 0.4 MG 03-07 le} HCl 0.4 MG 00:00 :00 Tamsulosin Tamsulosin 2022- No 1{capsu QD Tamsulosin HCl 0.4 MG HCl 0.4 MG 03-07 le} HCl 0.4 MG 00:00 :00 Tamsulosin Tamsulosin 2022- No 1{capsu QD Tamsulosin HCl 0.4 MG HCl 0.4 MG 03-07 le} HCl 0.4 MG 00:00 :00 Tamsulosin Tamsulosin 2023- No 1{capsu QD Tamsulosin HCl 0.4 MG HCl 0.4 MG 07-17 le} HCl 0.4 MG 00:00 :00 Tamsulosin Tamsulosin 3- No 1{capsu QD Tamsulosin HCl 0.4 MG HCl 0.4 MG 07-17 le} HCl 0.4 MG 00:00 :00 Tamsulosin Tamsulosin 3- No 1{capsu QD Tamsulosin HCl 0.4 MG HCl 0.4 MG 07-17 le} HCl 0.4 MG 00:00 :00 Tamsulosin Tamsulosin 3- No 1{capsu QD Tamsulosin HCl 0.4 MG HCl 0.4 MG 07-17 le} HCl 0.4 MG 00:00 :00 Tamsulosin Tamsulosin 3- No 1{capsu QD Tamsulosin HCl 0.4 MG HCl 0.4 MG 07-17 le} HCl 0.4 MG 00:00 :00 Tamsulosin Tamsulosin 3- No 1{capsu QD Tamsulosin HCl 0.4 MG HCl 0.4 MG 07-17 le} HCl 0.4 MG 00:00 :00 Tamsulosin Tamsulosin 3- No 1{capsu QD Tamsulosin HCl 0.4 MG HCl 0.4 MG 07-17 le} HCl 0.4 MG 00:00 :00 Tamsulosin Tamsulosin 3- No 1{capsu QD Tamsulosin HCl 0.4 MG HCl 0.4 MG 07-17 le} HCl 0.4 MG 00:00 :00 Tamsulosin Tamsulosin 3- No 1{capsu QD Tamsulosin HCl 0.4 MG HCl 0.4 MG 07-17 le} HCl 0.4 MG 00:00 :00 Tamsulosin Tamsulosin 3- No 1{capsu QD Tamsulosin HCl 0.4 MG HCl 0.4 MG 07-17 le} HCl 0.4 MG 00:00 :00 Tamsulosin Tamsulosin 2- No 1{capsu QD Tamsulosin HCl 0.4 MG HCl 0.4 MG 12-20 le} HCl 0.4 MG 00:00 :00 Tamsulosin Tamsulosin 2- No 1{capsu QD Tamsulosin HCl 0.4 MG HCl 0.4 MG 12-20 le} HCl 0.4 MG 00:00 :00 Tamsulosin Tamsulosin 2- No 1{capsu QD Tamsulosin HCl 0.4 MG HCl 0.4 MG 12-20 le} HCl 0.4 MG 00:00 :00 Tamsulosin Tamsulosin 2- No 1{capsu QD Tamsulosin HCl 0.4 MG HCl 0.4 MG 12-20 le} HCl 0.4 MG 00:00 :00 Tamsulosin Tamsulosin 2021- No 1{capsu QD Tamsulosin HCl 0.4 MG HCl 0.4 MG 12-20 le} HCl 0.4 MG 00:00 :00 Tamsulosin Tamsulosin 2021- No 1{capsu QD Tamsulosin HCl 0.4 MG HCl 0.4 MG 12-20 le} HCl 0.4 MG 00:00 :00 Tamsulosin Tamsulosin 2021- No 1{capsu QD Tamsulosin HCl 0.4 MG HCl 0.4 MG 12-20 le} HCl 0.4 MG 00:00 :00 Tamsulosin Tamsulosin 2- No 1{capsu QD Tamsulosin HCl 0.4 MG HCl 0.4 MG 12-20 le} HCl 0.4 MG 00:00 :00 Tamsulosin Tamsulosin 2- No 1{capsu QD Tamsulosin HCl 0.4 MG HCl 0.4 MG 12-20 le} HCl 0.4 MG 00:00 :00 Tamsulosin Tamsulosin 2- No 1{capsu QD Tamsulosin HCl 0.4 MG HCl 0.4 MG 12-20 le} HCl 0.4 MG 00:00 :00 Tamsulosin Tamsulosin 2- No 1{capsu QD Tamsulosin HCl 0.4 MG HCl 0.4 MG 12-20 le} HCl 0.4 MG 00:00 :00 Tamsulosin Tamsulosin 2- No 1{capsu QD Tamsulosin HCl 0.4 MG HCl 0.4 MG 12-20 le} HCl 0.4 MG 00:00 :00 Tamsulosin Tamsulosin 2- No 1{capsu QD Tamsulosin HCl 0.4 MG HCl 0.4 MG 12-20 le} HCl 0.4 MG 00:00 :00 Tamsulosin Tamsulosin 2- No 1{capsu QD Tamsulosin HCl 0.4 MG HCl 0.4 MG 12-20 le} HCl 0.4 MG 00:00 :00 Tamsulosin Tamsulosin 2- No 1{capsu QD Tamsulosin HCl 0.4 MG HCl 0.4 MG 12-20 le} HCl 0.4 MG 00:00 :00 Tamsulosin Tamsulosin 2- No 1{capsu QD Tamsulosin HCl 0.4 MG HCl 0.4 MG 12-20 le} HCl 0.4 MG 00:00 :00 Tamsulosin Tamsulosin 2021- No 1{capsu QD Tamsulosin HCl 0.4 MG HCl 0.4 MG 12-20 le} HCl 0.4 MG 00:00 :00 Tamsulosin Tamsulosin 2021- No 1{capsu QD Tamsulosin HCl 0.4 MG HCl 0.4 MG 12-20 le} HCl 0.4 MG 00:00 :00 Tamsulosin Tamsulosin 2- No 1{capsu QD Tamsulosin HCl 0.4 MG HCl 0.4 MG 12-20 le} HCl 0.4 MG 00:00 :00 Tamsulosin Tamsulosin 2- No 1{capsu QD Tamsulosin HCl 0.4 MG HCl 0.4 MG 12-20 le} HCl 0.4 MG 00:00 :00 Tamsulosin Tamsulosin 2- No 1{capsu QD Tamsulosin HCl 0.4 MG HCl 0.4 MG 12-20 le} HCl 0.4 MG 00:00 :00 Tamsulosin Tamsulosin 2- No 1{capsu QD Tamsulosin HCl 0.4 MG HCl 0.4 MG 12-20 le} HCl 0.4 MG 00:00 :00 Tamsulosin Tamsulosin 2- No 1{capsu QD Tamsulosin HCl 0.4 MG HCl 0.4 MG 12-20 le} HCl 0.4 MG 00:00 :00 Tamsulosin Tamsulosin 2- No 1{capsu QD Tamsulosin HCl 0.4 MG HCl 0.4 MG 12-20 le} HCl 0.4 MG 00:00 :00 Tamsulosin Tamsulosin 2- No 1{capsu QD Tamsulosin HCl 0.4 MG HCl 0.4 MG 12-20 le} HCl 0.4 MG 00:00 :00 Tamsulosin Tamsulosin 2021- No 1{capsu QD Tamsulosin HCl 0.4 MG HCl 0.4 MG 12-20 le} HCl 0.4 MG 00:00 :00 Tamsulosin Tamsulosin 2021- No 1{capsu QD Tamsulosin HCl 0.4 MG HCl 0.4 MG 12-20 le} HCl 0.4 MG 00:00 :00 Tamsulosin Tamsulosin 2021- No 1{capsu QD Tamsulosin HCl 0.4 MG HCl 0.4 MG 12-20 le} HCl 0.4 MG 00:00 :00 Tamsulosin Tamsulosin 2021- No 1{capsu QD HCl 0.4 MG HCl 0.4 MG 05 le} 00:00 :00 Immunizations Ordered Immunization Filled Immunization Date Status Commen ts Source Name Name Pneumovax (PPSV23) Pneumovax (PPSV23) 2021-09-15 [facility]:00 [facility] Pneumovax (PPSV23) Pneumovax (PPSV23) 2021-09-15 [facility]pleted [facility] 15:17:00 [facility] Pneumovax (PPSV23) Pneumovax (PPSV23) 2021-09-15 [facility] 15:17:00 [facility] Pneumovax (PPSV23) Pneumovax (PPSV23) 2021-09-15 [facility]pleted [facility] 15:17:00 [facility] Pneumovax (PPSV23) Pneumovax (PPSV23) 2021-09-15 [facility] 15:17:00 [facility] Pneumovax (PPSV23) Pneumovax (PPSV23) 2021-09-15 [facility] 15:17:00 [facility] Pneumovax (PPSV23) Pneumovax (PPSV23) 2021-09-15 [facility]pleted [facility] 15:17:00 [facility] Pneumovax (PPSV23) Pneumovax (PPSV23) 2021-09-15 [facility] 15:17:00 [facility] Pneumovax (PPSV23) Pneumovax (PPSV23) 2021-09-15 Com[facility] 15:17:00 - [facility] Pneumovax (PPSV23) Pneumovax (PPSV23) 2021-09-15 Completed [facility] 15:17:00 [facility] Pneumovax (PPSV23) Pneumovax (PPSV23) 2021-09-15 Completed [facility] 15:17:00 [facility] Pneumovax (PPSV23) Pneumovax (PPSV23) 2021-09-15 Completed [facility] 15:17:00 [facility] Pneumovax (PPSV23) Pneumovax (PPSV23) 2021-09-15 Completed [facility] 15:17:00 [facility] Pneumovax (PPSV23) Pneumovax (PPSV23) 2021-09-15 Completed [facility] 15:17:00 [facility] Pneumovax (PPSV23) Pneumovax (PPSV23) 2021-09-15 [facility]pleted [facility] 15:17:00 [facility] Pneumovax (PPSV23) Pneumovax (PPSV23) 2021-09-15 Completed [facility] 15:17:00 [facility] Pneumovax (PPSV23) Pneumovax (PPSV23) 2021-09-15 Completed [facility] 15:17:00 [facility] Pneumovax (PPSV23) Pneumovax (PPSV23) 2021-09-15 Completed [facility] 15:17:00 [facility] Pneumovax (PPSV23) Pneumovax (PPSV23) 2021-09-15 Completed [facility] 15:17:00 [facility] Pneumovax (PPSV23) Pneumovax (PPSV23) 2021-09-15 Completed [facility] 15:17:00 [facility] Pneumovax (PPSV23) Pneumovax (PPSV23) 2021-09-15 Completed [facility] 15:17:00 [facility] Pneumovax (PPSV23) Pneumovax (PPSV23) 2021-09-15 Completed [facility] 15:17:00 [facility] Pneumovax (PPSV23) Pneumovax (PPSV23) 2021-09-15 Completed [facility] 15:17:00 [facility] Pneumovax (PPSV23) Pneumovax (PPSV23) 2021-09-15 Completed [facility] 15:17:00 [facility] Pneumovax (PPSV23) Pneumovax (PPSV23) 2021-09-15 Completed [facility] 15:17:00 [facility] Pneumovax (PPSV23) Pneumovax (PPSV23) 2021-09-15 Completed [facility] 15:17:00 [facility] Pneumovax (PPSV23) Pneumovax (PPSV23) 2021-09-15 Completed [facility] 15:17:00 [facility] Pneumovax (PPSV23) Pneumovax (PPSV23) 2021-09-15 Completed [facility] 15:17:00 [facility] Pneumovax (PPSV23) Pneumovax (PPSV23) 2021-09-15 Completed [facility] 15:17:00 [facility] Pneumovax (PPSV23) Pneumovax (PPSV23) 2021-09-15 Completed [facility] 15:17:00 [facility] Pneumovax (PPSV23) Pneumovax (PPSV23) 2021-09-15 Completed [facility] 15:17:00 [facility] Pneumovax (PPSV23) Pneumovax (PPSV23) 2021-09-15 Completed [facility] 15:17:00 [facility] Pneumovax (PPSV23) Pneumovax (PPSV23) 2021-09-15 Completed [facility] 15:17:00 [facility] Pneumovax (PPSV23) Pneumovax (PPSV23) 2021-09-15 Completed [facility] 15:17:00 [facility] Pneumovax (PPSV23) Pneumovax (PPSV23) 2021-09-15 Completed [facility] 15:17:00 [facility] Pneumovax (PPSV23) Pneumovax (PPSV23) 2021-09-15 Completed [facility] 15:17:00 - [facility] Pneumovax (PPSV23) Pneumovax (PPSV23) 2021-09-15 Completed [facility] 15:17:00 [facility] Pneumovax (PPSV23) Pneumovax (PPSV23) 2021-09-15 Completed [facility] 15:17:00 [facility] Pneumovax (PPSV23) Pneumovax (PPSV23) 2021-09-15 Completed [facility] 15:17:00 [facility] Pneumovax (PPSV23) Pneumovax (PPSV23) 2021-09-15 Completed [facility] 15:17:00 [facility] Pneumovax (PPSV23) Pneumovax (PPSV23) 2021-09-15 Completed [facility] 15:17:00 [facility] Pneumovax (PPSV23) Pneumovax (PPSV23) 2021-09-15 Completed [facility] 15:17:00 [facility] Pneumovax (PPSV23) Pneumovax (PPSV23) 2021-09-15 Completed [facility] 15:17:00 [facility] Pneumovax (PPSV23) Pneumovax (PPSV23) 2021-09-15 Completed [facility] 15:17:00 [facility] Pneumovax (PPSV23) Pneumovax (PPSV23) 2021-09-15 Completed [facility] 15:17:00 [facility] Pneumovax (PPSV23) Pneumovax (PPSV23) 2021-09-15 Completed [facility] 15:17:00 [facility] Pneumovax (PPSV23) Pneumovax (PPSV23) 2021-09-15 Completed [facility] 15:17:00 [facility] Vital Signs Vital Name Observation Time Observation Value Comments Source height 2022-09-15 09:20:00 65 [in_i] [facility] weight 2022-09-15 09:20:00 167.1 [lb_av] [facility] temperature 2022-09-15 09:20:00 97.1 [degF] [facility] bmi 2022-09-15 09:20:00 27.8 kg/m2 [facility] oximetry 2022-09-15 09:20:00 99 % [facility] respiratory rate 2022-09-15 09:20:00 18 /min Comm on [facility] blood pressure 2022-09-15 09:20:00 119 mm[Hg] [facility] - systolic [facility] blood pressure 2022-09-15 09:20:00 68 mm[Hg] [facility] - diastolic [facility] height 2022-09-15 09:30:00 65 [in_i] [facility] weight 2022-09-15 09:30:00 167.1 [lb_av] [facility] temperature 2022-09-15 09:30:00 97.1 [degF] [facility] bmi 2022-09-15 09:30:00 27.8 kg/m2 [facility] oximetry 2022-09-15 09:30:00 99 % [facility] respiratory rate 2022-09-15 09:30:00 18 /min [facility] on [facility] blood pressure 2022-09-15 09:30:00 119 mm[Hg] [facility] - systolic [facility] blood pressure 2022-09-15 09:30:00 68 mm[Hg] [facility] - diastolic [facility] height 2022-08-09 08:15:00 65 [in_i] [facility] weight 2022-08-09 08:15:00 167 [facility] temperature 2022-08-09 08:15:00 98.0 [degF] [facility] bmi 2022-08-09 08:15:00 27.79 kg/m2 [facility] blood pressure 2022-08-09 08:15:00 128 mm[Hg] [facility] - systolic [facility] blood pressure 2022-08-09 08:15:00 80 mm[Hg] [facility] - diastolic [facility] height 2022-07-14 10:00:00 65 [in_i] [facility] weight 2022-07-14 10:00:00 167 [lb_av] [facility] temperature 2022-07-14 10:00:00 97.6 [degF] [facility] bmi 2022-07-14 10:00:00 27.79 kg/m2 [facility] blood pressure 2022-07-14 10:00:00 130 mm[Hg] [facility] - systolic [facility] blood pressure 2022-07-14 10:00:00 74 mm[Hg] [facility] - diastolic [facility] height 2022-07-12 09:30:00 65 [in_i] [facility] weight 2022-07-12 09:30:00 167 [lb_av] [facility] temperature 2022-07-12 09:30:00 98.3 [degF] [facility] bmi 2022-07-12 09:30:00 27.79 kg/m2 [facility] blood pressure 2022-07-12 09:30:00 132 mm[Hg] [facility] - systolic [facility] blood pressure 2022-07-12 09:30:00 72 mm[Hg] [facility] - diastolic [facility] height 2022-07-02 09:30:00 65 [in_i] [facility] weight 2022-07-02 09:30:00 168 [lb_av] [facility] temperature 2022-07-02 09:30:00 97.3 [degF] [facility] bmi 2022-07-02 09:30:00 27.95 kg/m2 [facility] blood pressure 2022-07-02 09:30:00 130 mm[Hg] [facility] - systolic [facility] blood pressure 2022-07-02 09:30:00 70 mm[Hg] [facility] - diastolic [facility] height 2022-06-14 09:00:00 65 [in_i] [facility] weight 2022-06-14 09:00:00 168 [lb_av] [facility] temperature 2022-06-14 09:00:00 97.2 [degF] [facility] bmi 2022-06-14 09:00:00 27.95 kg/m2 [facility] blood pressure 2022-06-14 09:00:00 128 mm[Hg] [facility] - systolic [facility] blood pressure 2022-06-14 09:00:00 70 mm[Hg] [facility] - diastolic [facility] height 2022-06-10 10:00:00 65 [in_i] [facility] weight 2022-06-10 10:00:00 168.4 [lb_av] [facility] temperature 2022-06-10 10:00:00 97.7 [degF] [facility] bmi 2022-06-10 10:00:00 28.02 kg/m2 [facility] respiratory rate 2022-06-10 10:00:00 18 /min [facility] blood pressure 2022-06-10 10:00:00 123 mm[Hg] [facility] - systolic [facility] blood pressure 2022-06-10 10:00:00 65 mm[Hg] [facility] - diastolic [facility] height 2022-05-17 09:45:00 65 [in_i] [facility] weight 2022-05-17 09:45:00 166 [lb_av] [facility] temperature 2022-05-17 09:45:00 97.4 [degF] [facility] bmi 2022-05-17 09:45:00 27.62 kg/m2 [facility] blood pressure 2022-05-17 09:45:00 124 mm[Hg] [facility] - systolic [facility] blood pressure 2022-05-17 09:45:00 70 mm[Hg] [facility] - diastolic [facility] height 2022-04-28 14:45:00 65 [in_i] [facility] weight 2022-04-28 14:45:00 166.9 [lb_av] [facility] temperature 2022-04-28 14:45:00 97.3 [degF] [facility] 2022-04-28 14:45:00 27.77 kg/m2 [facility] blood pressure 2022-04-28 14:45:00 122 mm[Hg] [facility] - systolic [facility] blood pressure 2022-04-28 14:45:00 61 mm[Hg] [facility] - diastolic [facility] height 2022-04-07 14:30:00 65 [in_i] [facility] weight 2022-04-07 14:30:00 166.9 [lb_av] [facility] temperature 2022-04-07 14:30:00 98.0 [degF] [facility] bmi 2022-04-07 14:30:00 27.77 kg/m2 [facility] blood pressure 2022-04-07 14:30:00 118 mm[Hg] [facility] - systolic [facility] blood pressure 2022-04-07 14:30:00 60 mm[Hg] [facility] - diastolic [facility] height 2022-04-05 13:20:00 65 [in_i] [facility] weight 2022-04-05 13:20:00 166.9 [lb_av] [facility] temperature 2022-04-05 13:20:00 97.3 [degF] [facility] 13:20:00 27.77 kg/m2 [facility] oximetry 2022-04-05 13:20:00 99 % [facility] 2022-04-05 13:20:00 16 /min [facility] blood pressure 2022-04-05 13:20:00 118 mm[Hg] [facility] - systolic [facility] blood pressure 2022-04-05 13:20:00 60 mm[Hg] [facility] - diastolic [facility] height 2022-03-17 11:00:00 65 [in_i] [facility] weight 2022-03-17 11:00:00 165 [lb_av] [facility] temperature 2022-03-17 11:00:00 98.2 [degF] [facility] bmi 2022-03-17 11:00:00 27.45 kg/m2 [facility] oximetry 2022-03-17 11:00:00 98 % [facility] respiratory rate 2022-03-17 11:00:00 16 /min [facility] blood pressure 2022-03-17 11:00:00 138 mm[Hg] [facility] systolic [facility] blood pressure 2022-03-17 11:00:00 63 mm[Hg] [facility] - diastolic [facility] height 2022-03-10 08:00:00 65 [in_i] [facility] weight 2022-03-10 08:00:00 166.4 [lb_av] [facility] temperature 2022-03-10 08:00:00 97.7 [degF] [facility] bmi 2022-03-10 08:00:00 27.69 kg/m2 [facility] oximetry 2022-03-10 08:00:00 99 % [facility] respiratory rate 2022-03-10 08:00:00 18 /min [facility] blood pressure 2022-03-10 08:00:00 110 mm[Hg] [facility] systolic [facility] blood pressure 2022-03-10 08:00:00 59 mm[Hg] [facility] - diastolic [facility] height 2022-02-24 09:00:00 66 [in_i] [facility] weight 2022-02-24 09:00:00 165 [lb_av] [facility] bmi 2022-02-24 09:00:00 26.63 kg/m2 [facility] blood pressure 2022-02-24 09:00:00 110 mm[Hg] [facility] - systolic [facility] blood pressure 2022-02-24 09:00:00 70 mm[Hg] [facility] - diastolic [facility] height 2022-02-15 11:00:00 66 [in_i] [facility] weight 2022-02-15 11:00:00 165 [lb_av] [facility] bmi 2022-02-15 11:00:00 26.63 kg/m2 [facility] blood pressure 2022-02-15 11:00:00 108 mm[Hg] [facility] - systolic [facility] blood pressure 2022-02-15 11:00:00 70 mm[Hg] [facility] - diastolic [facility] height 2022-02-08 09:15:00 66 [in_i] [facility] weight 2022-02-08 09:15:00 165.1 [lb_av] [facility] bmi 2022-02-08 09:15:00 26.64 kg/m2 [facility] blood pressure 2022-02-08 09:15:00 107 mm[Hg] [facility] systolic [facility] blood pressure 2022-02-08 09:15:00 67 mm[Hg] [facility] - diastolic [facility] height 2021-12-22 10:00:00 66 [in_i] [facility] weight 2021-12-22 10:00:00 165.2 [lb_av] [facility] - [facility] temperature 2021-12-22 10:00:00 96.7 [degF] [facility] bmi 2021-12-22 10:00:00 26.66 kg/m2 [facility] oximetry 2021-12-22 10:00:00 98 % [facility] respiratory rate 2021-12-22 10:00:00 16 /min [facility] blood pressure 2021-12-22 10:00:00 136 mm[Hg] [facility] - systolic [facility] blood pressure 2021-12-22 10:00:00 64 mm[Hg] [facility] - diastolic [facility] height 2021-12-07 09:00:00 66 [in_i] [facility] weight 2021-12-07 09:00:00 164 [lb_av] [facility] bmi 2021-12-07 09:00:00 26.47 kg/m2 [facility] blood pressure 2021-12-07 09:00:00 118 mm[Hg] [facility] blood pressure 2021-12-07 09:00:00 70 mm[Hg] [facility] - diastolic [facility] height 2021-11-19 08:30:00 66 [in_i] [facility] weight 2021-11-19 08:30:00 164.6 [lb_av] [facility] - [facility] bmi 2021-11-19 08:30:00 26.56 kg/m2 [facility] blood pressure 2021-11-19 08:30:00 112 mm[Hg] [facility] - systolic [facility] blood pressure 2021-11-19 08:30:00 62 mm[Hg] [facility] - diastolic [facility] height 2021-11-13 11:15:00 66 [in_i] [facility] weight 2021-11-13 11:15:00 165 [lb_av] [facility] temperature 2021-11-13 11:15:00 98.2 [degF] [facility] bmi 2021-11-13 11:15:00 26.63 kg/m2 [facility] oximetry 2021-11-13 11:15:00 99 % [facility] respiratory rate 2021-11-13 11:15:00 16 /min [facility] blood pressure 2021-11-13 11:15:00 132 mm[Hg] [facility] systolic [facility] blood pressure 2021-11-13 11:15:00 60 mm[Hg] [facility] - diastolic [facility] height 2021-09-10 08:50:00 66 [in_i] [facility] weight 2021-09-10 08:50:00 168.2 [lb_av] [facility] - [facility] temperature 2021-09-10 08:50:00 97.3 [degF] [facility] bmi 2021-09-10 08:50:00 27.15 kg/m2 [facility] oximetry 2021-09-10 08:50:00 98 % [facility] respiratory rate 2021-09-10 08:50:00 18 /min [facility] blood pressure 2021-09-10 08:50:00 144 mm[Hg] [facility] blood pressure 2021-09-10 08:50:00 67 mm[Hg] [facility] - diastolic [facility] height 2021-09-10 09:10:00 66 [in_i] [facility] weight 2021-09-10 09:10:00 168.2 [lb_av] [facility] temperature 2021-09-10 09:10:00 97.3 [degF] [facility] bmi 2021-09-10 09:10:00 27.15 kg/m2 [facility] oximetry 2021-09-10 09:10:00 98 % [facility] respiratory rate 2021-09-10 09:10:00 18 /min [facility] blood pressure 2021-09-10 09:10:00 144 mm[Hg] [facility] - systolic [facility] blood pressure 2021-09-10 09:10:00 67 mm[Hg] [facility] - diastolic [facility] height 2021-09-04 11:30:00 66 [in_i] [facility] weight 2021-09-04 11:30:00 165 [lb_av] [facility] temperature 2021-09-04 11:30:00 97.3 [degF] [facility] bmi 2021-09-04 11:30:00 26.63 kg/m2 [facility] oximetry 2021-09-04 11:30:00 98 % [facility] respiratory rate 2021-09-04 11:30:00 18 /min [facility] on [facility] blood pressure 2021-09-04 11:30:00 131 mm[Hg] [facility] - systolic [facility] blood pressure 2021-09-04 11:30:00 61 mm[Hg] [facility] - diastolic [facility] height 2021-08-24 16:30:00 66 [in_i] [facility] weight 2021-08-24 16:30:00 167.8 [lb_av] [facility] temperature 2021-08-24 16:30:00 97.7 [degF] [facility] bmi 2021-08-24 16:30:00 27.08 kg/m2 [facility] oximetry 2021-08-24 16:30:00 95 % [facility] respiratory rate 2021-08-24 16:30:00 18 /min [facility] blood pressure 2021-08-24 16:30:00 146 mm[Hg] [facility] - systolic [facility] blood pressure 2021-08-24 16:30:00 69 mm[Hg] [facility] - diastolic [facility] height 2021-06-26 09:40:00 66 [in_i] [facility] weight 2021-06-26 09:40:00 162.8 [lb_av] [facility] temperature 2021-06-26 09:40:00 97.3 [degF] [facility] bmi 2021-06-26 09:40:00 26.27 kg/m2 [facility] oximetry 2021-06-26 09:40:00 96 % Common [facility] blood pressure 2021-06-26 09:40:00 123 mm[Hg] Common [facility] - systolic [facility] blood pressure 2021-06-26 09:40:00 62 mm[Hg] Common [facility] - diastolic [facility] Procedures This patient has no known procedures. Encounters Start End Encounter Admission Attending Care Care Encounter Source Date/Time Date/Time Type Type Clinicians Facility Department ID 2022-06-15 [facility] [id number] Common 16:26:00 [facility] 2022-06-01 Outpatient Mark [facility] [id number] Common 10:35:01 [facility] 2022-04-08 Outpatient Flores, STLMLC STLMLC [id number] Common 10:53:00 Ari [facility] 2022-03-01 Outpatient Flores, STLMLC STLMLC [id number] Common 09:02:00 Ari [facility] 2022-02-15 Outpatient Flores, STLMLC STLMLC [id number] Common 10:50:01 Ari [facility] 2021-11-18 Outpatient Flores, STLMLC STLMLC [id number] Common 08:43:01 Ari [facility] 2021-11-16 Outpatient Flores, STLMLC STLMLC [id number] Common 11:47:00 Ari [facility] 2021-11-12 Outpatient Flores, STLMLC STLMLC [id number] Common 14:19:00 Ari [facility] 2021-09-16 Outpatient Flores, STLMLC STLMLC [id number] Common 14:30:48 Ari [facility] 2021-09-16 Outpatient Flores, STLMLC STLMLC [id number] Common 14:08:53 Ari [id number] [facility] 2021-09-16 Outpatient Flores, STLMLC STLMLC [id number] Common 13:51:26 Ari [id number] [facility] 2021-09-16 Outpatient Flores, STLMLC STLMLC [id number] Common 13:50:30 Ari 85867 [facility] 2021-09-16 Outpatient zzzTello, STLMLC STLMLC [id number] Common 13:49:26 Jammie [id number] [facility] 2021-09-16 Outpatient zzzTello, STLMLC STLMLC [id number] Common 12:45:44 Jammie [id number] [facility] 2021-09-16 Outpatient zzzTello, STLMLC STLMLC [id number] Common 12:43:09 Jammie [id number] [facility] 2022-10-28 2022-10-28 [facility] [id number] [facility] 13:30:00 00 brina Kline 2022-09-15 2022-09-15 OFFICE STLMLC STLMLC [id number] Co mmon 00:00:00 00:00:00 VISIT [facility] ESTAB PT - CHI LEVEL 4 [facility] 2022-09-15 2022-09-15 SUB ANNUAL STLMLC STLMLC [id number] Common 00:00:00 00:00:00 MCR [facility] WELLNESS - CHI VISIT [facility] 2022-09-15 2022-09-15 (TEL) STLMLC STLMLC [id number] Co mmon 00:00:00 00:00:00 [facility] 2022-09-02 2022-09-02 (TEL) STLMLC STLMLC [id number] Co mmon 00:00:00 00:00:00 [facility] 2022-08-10 2022-08-10 (TEL) STLMLC STLMLC [id number] Co mmon 00:00:00 00:00:00 [facility] 2022-08-09 2022-08-09 NON-BILLAB STLMLC STLMLC [id number] Common 00:00:00 00:00:00 LE VISIT [facility] 2022-07-14 2022-07-14 (TEL) STLMLC STLMLC [id number] Co mmon 00:00:00 00:00:00 [facility] 2022-07-14 2022-07-14 NON-BILLAB STLMLC STLMLC [id number] Common 00:00:00 00:00:00 LE VISIT [facility] 2022-07-14 2022-07-14 (TEL) STLMLC STLMLC [id number] Co mmon 00:00:00 00:00:00 [facility] 2022-07-12 2022-07-12 (TEL) STLMLC STLMLC [id number] Co mmon 00:00:00 00:00:00 [facility] 2022-07-12 2022-07-12 NON-BILLAB STLMLC STLMLC [id number] Common 00:00:00 00:00:00 LE VISIT [facility] 2022-07-02 2022-07-02 NON-BILLAB STLMLC STLMLC [id number] Common 00:00:00 00:00:00 LE VISIT [facility] 2022-06-17 2022-06-17 (TEL) STLMLC STLMLC [id number] Co mmon 00:00:00 00:00:00 [facility] 2022-06-14 2022-06-14 OFFICE STLMLC STLMLC [id number] Co mmon 00:00:00 00:00:00 VISIT EST Spir it PT LEVEL 3 [facility] 2022-06-10 2022-06-10 OFFICE STLMLC STLMLC [id number] Co mmon 00:00:00 00:00:00 VISIT EST Spir it PT LEVEL 3 [facility] 2022-05-20 2022-05-20 (TEL) STLMLC STLMLC [id number] Co mmon 00:00:00 00:00:00 [facility] 2022-05-18 2022-05-18 (TEL) STLMLC STLMLC [id number] Co mmon 00:00:00 00:00:00 [facility] 2022-05-17 2022-05-17 OFFICE STLMLC STLMLC [id number] Co mmon 00:00:00 00:00:00 VISIT EST Spir it PT LEVEL 3 [facility] 2022-05-11 2022-05-11 (TEL) STLMLC STLMLC [id number] Co mmon 00:00:00 00:00:00 [facility] 2022 2022 (PROC) STLMLC STLMLC [id number] Co mmon 00:00:00 00:00:00 Procedure Spir [facility] 2022-04-28 2022-04-28 OFFICE STLMLC STLMLC [id number] Co mmon 00:00:00 00:00:00 VISIT EST Spir it PT LEVEL 3 [facility] 2022-04-22 2022-04-22 (TEL) STLMLC STLMLC [id number] Co mmon 00:00:00 00:00:00 [facility] 2022-04-07 2022-04-07 OFFICE STLMLC STLMLC [id number] Co mmon 00:00:00 00:00:00 VISIT EST Spir it PT LEVEL 3 [facility] 2022-04-05 2022-04-05 (TEL) STLMLC STLMLC [id number] Co mmon 00:00:00 00:00:00 [facility] 2022-04-05 2022-04-05 OFFICE STLMLC STLMLC [id number] Co mmon 00:00:00 00:00:00 VISIT EST Spir it PT LEVEL 3 [facility] 2022-04-05 2022-04-05 (TEL) STLMLC STLMLC [id number] Co mmon 00:00:00 00:00:00 [facility] 2022-03-17 2022-03-17 OFFICE STLMLC STLMLC [id number] Co mmon 00:00:00 00:00:00 VISIT Spirit ESTAB PT - CHI LEVEL 2 [facility] 2022-03-10 2022-03-10 OFFICE STLMLC STLMLC [id number] Co mmon 00:00:00 00:00:00 VISIT [facility] ESTAB PT - CHI LEVEL 4 [facility] 2022-02-24 2022-02-24 (TEL) STLMLC STLMLC [id number] Co mmon 00:00:00 00:00:00 [facility] 2022-02-24 2022-02-24 (IN/ASP) STLMLC STLMLC [id number] C ommon 00:00:00 00:00:00 INJ ASP [facility] 2022-02-15 2022-02-15 (IN/ASP) STLMLC STLMLC [id number] C ommon 00:00:00 00:00:00 INJ ASP [facility] 2022-02-08 2022-02-08 OFFICE STLMLC STLMLC [id number] Co mmon 00:00:00 00:00:00 VISIT EST Spir it PT LEVEL 3 [facility] 2021-12-23 2021-12-23 (TEL) STLMLC STLMLC [id number] Co mmon 00:00:00 00:00:00 [facility] 2021-12-22 2021-12-22 OFFICE STLMLC STLMLC [id number] Co mmon 00:00:00 00:00:00 VISIT EST Spir it PT LEVEL 3 [facility] 2021-12-07 2021-12-07 (IN/ASP) STLMLC STLMLC [id number] C ommon 00:00:00 00:00:00 INJ ASP [facility] 2021-11-19 2021-11-19 OFFICE STLMLC STLMLC [id number] Co mmon 00:00:00 00:00:00 VISIT EST Spir it PT LEVEL 3 [facility] 2021-11-17 2021-11-17 (TEL) STLMLC STLMLC [id number] Co mmon 00:00:00 00:00:00 [facility] 2021-11-13 2021-11-13 OFFICE STLMLC STLMLC [id number] Co mmon 00:00:00 00:00:00 VISIT EST Spir it PT LEVEL 3 [facility] 2021-09-21 2021-09-21 (TEL) STLMLC STLMLC [id number] Co mmon 00:00:00 00:00:00 [facility] 2021-09-15 2021-09-15 (TEL) STLMLC STLMLC [id number] Co mmon 00:00:00 00:00:00 [facility] 2021-09-15 2021-09-15 (INJ) STLMLC STLMLC [id number] Co mmon 00:00:00 00:00:00 Injection Spir it [facility] 2021-09-10 2021-09-10 OFFICE STLMLC STLMLC [id number] Co mmon 00:00:00 00:00:00 VISIT [facility] ESTAB PT - CHI LEVEL 4 [facility] 2021-09-10 2021-09-10 (TEL) STLMLC STLMLC [id number] Co mmon 00:00:00 00:00:00 Spirit [facility] 2021-09-10 2021-09-10 SUB ANNUAL STLMLC STLMLC [id number] Common 00:00:00 00:00:00 MCR [facility] WELLNESS - CHI VISIT [facility] 2021-09-04 2021-09-04 OFFICE STLMLC STLMLC [id number] Co mmon 00:00:00 00:00:00 VISIT [facility] ESTAB PT - CHI LEVEL 2 [facility] 2021-09-04 2021-09-04 (TEL) STLMLC STLMLC [id number] Co mmon 00:00:00 00:00:00 [facility] 2021-08-24 2021-08-24 (PROC) STLMLC STLMLC [id number] Co mmon 00:00:00 00:00:00 Procedure Spir it - CHI [facility] 2021-06-26 2021-06-26 OFFICE STLMLC STLMLC [id number] Co mmon 00:00:00 00:00:00 VISIT EST Spir it PT LEVEL 3 - [facility] 2021-06-24 2021-06-24 (TEL) STLMLC STLMLC [id number] Co mmon 00:00:00 00:00:00 [facility] 2021-05-11 2021-05-11 Outpatient STLMLC STLMLC [id number] Common 00:00:00 00:00:00 [facility] 2021-05-04 2021-05-04 Outpatient STLMLC STLMLC [id number] Common 00:00:00 00:00:00 [facility] 2020-11-17 2020-11-17 Outpatient STLMLC STLMLC [id number] Common 00:00:00 00:00:00 [facility] Results Test Description Test Time Test Comments Results Result Comments Source Tib Fib Right Tib Fib Right
--- NOTE | 2022-10-01 03:06 | EDPHYS ---
Physician Documentation [facility] Name: Angelo Gonzalez Age: 87 yrs Sex: Male : 1935 Arrival Date: 10/01/2022 Time: 01:18 Bed 18 Private MD: ED Physician Georges Pitts HPI: 10/01 02:15 This 87 yrs old Male presents to ER via Wheelchair with complaints of Fall Injury. snw 02:15 Details of fall: The patient fell from an upright position, took tramadol prior to bed, snw got up to go to bathroom and became dizzy and fell into door frame. No contact with head, no LOC, + skin tear to left arm, struck left lateral chest, tender. The patient has not experienced similar symptoms in the past. Historical: - Allergies: 01:37 No Known Allergies; kl - Home Meds: 01:37 Plavix Oral [Active]; kl - PMHx: 01:37 aortic aneurysm; Arthritis; BPH; Cancer; bladder; Hypertension; Hypothyroidism; kl - PSHx: 01:37 None; kl - Immunization history:: Last tetanus immunization: up to date. - Social history:: Smoking status: Patient denies any tobacco usage or history of. ROS: 02:10 Constitutional: Negative for fever, chills, and weight loss, Eyes: Negative for injury, snw pain, redness, and discharge, ENT: Negative for injury, pain, and discharge, Neck: Negative for injury, pain, and swelling, Cardiovascular: Negative for chest pain, palpitations, and edema, Respiratory: Negative for shortness of breath, cough, wheezing, and pleuritic chest pain, Abdomen/GI: Negative for abdominal pain, nausea, vomiting, diarrhea, and constipation, Back: Negative for injury and pain, : Negative for injury, bleeding, discharge, and swelling, Skin: Negative for rash and discoloration, positive for left forearm skin tear Neuro: Negative for headache, weakness, numbness, tingling, and seizure. 02:10 MS/extremity: Positive for injury or acute deformity, contusion, tenderness, of the anterior aspect of left lateral abdomen. Exam: 02:09 Constitutional: This is a well developed, well nourished patient who is awake, alert, snw and in no acute distress. Head/Face: Normocephalic, atraumatic. Eyes: Pupils equal round and reactive to light, extra-ocular motions intact. Lids and lashes normal. Conjunctiva and sclera are non-icteric and not injected. Cornea within normal limits. Periorbital areas with no swelling, redness, or edema. ENT: Nares patent. No nasal discharge, no septal abnormalities noted. Tympanic membranes are normal and external auditory canals are clear. Oropharynx with no redness, swelling, or masses, exudates, or evidence of obstruction, uvula midline. Mucous membranes moist. Neck: Trachea midline, no thyromegaly or masses palpated, and no cervical lymphadenopathy. Supple, full range of motion without nuchal rigidity, or vertebral point tenderness. No Meningismus. Chest/axilla: Normal chest wall appearance and motion. Nontender with no deformity. No lesions are appreciated. Cardiovascular: Regular rate and rhythm with a normal S1 and S2. No gallops, murmurs, or rubs. Normal PMI, no JVD. No pulse deficits. Respiratory: Lungs have equal breath sounds bilaterally, clear to auscultation and percussion. No rales, rhonchi or wheezes noted. No increased work of breathing, no retractions or nasal flaring. Tenderness to left lateral ribs, ecchymosis forming between lower rib and upper pelvis Abdomen/GI: Soft, non-tender, with normal bowel sounds. No distension or tympany. No guarding or rebound. No evidence of tenderness throughout. Back: No spinal tenderness. No costovertebral tenderness. Full range of motion. MS/ Extremity: Pulses equal, no cyanosis. Neurovascular intact. Full, normal range of motion. Neuro: Awake and alert, GCS 15, oriented to person, place, time, and situation. Cranial nerves II-XII grossly intact. Motor strength 5/5 in all extremities. Sensory grossly intact. Cerebellar exam normal. Normal gait. Psych: Awake, alert, with orientation to person, place and time. Behavior, mood, and affect are within normal limits. 02:13 Skin: Appearance: normal except for affected area, injury, skin tear to left forearm, snw bleeding controlled. Vital Signs: 01:46 BP 130 / 62; Pulse 85; Resp 20 S; Pulse Ox 97% on R/A; aa9 03:29 BP 137 / 75; Pulse 89; Resp 19; Pulse Ox 99% on R/A; Weight 74.84 kg (R); Height 5 ft. aa9 6 in. (167.64 cm) (R); 03:29 Body Mass Index 26.63 (74.84 kg, 167.64 cm) aa9 [place] Coma Score: 02:43 Eye Response: spontaneous(4). Verbal Response: oriented(5). Motor Response: obeys aa9 commands(6). Total: 15. Trauma Score (Adult): 02:43 Eye Response: spontaneous(1); Verbal Response: oriented(1); Motor Response: obeys aa9 commands(2); Systolic BP: > 89 mm Hg(4); Respiratory Rate: 10 to 29 per min(4); Annia Score: 15; Trauma Score: 12 MDM: 01:46 Patient medically screened. snw 02:13 Differential diagnosis: abrasion, contusion, fracture, sprain, strain. Data reviewed: snw vital signs, nurses notes. Historians other than the Patient: Daughter/Son: Daughter. Counseling: I had a detailed discussion with the patient and/or guardian regarding: the historical points, exam findings, and any diagnostic results supporting the discharge/admit diagnosis, radiology results, the need for outpatient follow up, for definitive care, to return to the emergency department if symptoms worsen or persist or if there are any questions or concerns that arise at home. Special discussion: I discussed in detail with the patient the higher chance of wound infection based on his presenting history. Based on the history and exam findings, there is no indication for further emergent testing or inpatient evaluation. I discussed with the patient/guardian the need to see the primary care provider for further evaluation of the symptoms. 10/01 01:55 Order name: XRAY Ribs LEFT snw 10/01 01:55 Order name: Wound Care: Please clean and dress skin tear and wrap gently with laura for snw support; Complete Time: 02:39 Administered Medications: No medications were administered Disposition: 20:18 Co-signature as Attending Physician, Georges Pitts MD. rn Disposition Summary: 10/01/22 03:05 Discharge Ordered Location: Home snw Condition: Stable snw Diagnosis - Fall on same level, unspecified snw - Contusion of right front wall of thorax snw - Disorder of the skin and subcutaneous tissue, unspecified - skin tear snw Followup: snw - With: Emergency Department - When: As needed - Reason: Worsening of condition Followup: snw - With: Private Physician - When: 2 - 3 days - Reason: Recheck today's complaints, Continuance of care, Re-evaluation by your physician Discharge Instructions: - Discharge Summary Sheet snw - Rib Contusion snw - Fall Prevention in the Home, Adult snw - Skin Tear snw Forms: - Medication Reconciliation Form snw - Thank You Letter snw - Antibiotic Education snw - Prescription Opioid Use snw Signatures: Dispatcher [employer] EDMS Pamela Sesay RN RN kl Waters, Shelly, [employer] MANAGER-Csnw Georges Pitts MD MD rn Avalos, Aylin, RN RN aa9 Corrections: (The following items were deleted from the chart) 02:13 02:09 Constitutional: This is a well developed, well nourished patient who is awake, snw alert, and in no acute distress. Head/Face: Normocephalic, atraumatic. Eyes: Pupils equal round and reactive to light, extra-ocular motions intact. Lids and lashes normal. Conjunctiva and sclera are non-icteric and not injected. Cornea within normal limits. Periorbital areas with no swelling, redness, or edema. ENT: Nares patent. No nasal discharge, no septal abnormalities noted. Tympanic membranes are normal and external auditory canals are clear. Oropharynx with no redness, swelling, or masses, exudates, or evidence of obstruction, uvula midline. Mucous membranes moist. Neck: Trachea midline, no thyromegaly or masses palpated, and no cervical lymphadenopathy. Supple, full range of motion without nuchal rigidity, or vertebral point tenderness. No Meningismus. Chest/axilla: Normal chest wall appearance and motion. Nontender with no deformity. No lesions are appreciated. Cardiovascular: Regular rate and rhythm with a normal S1 and S2. No gallops, murmurs, or rubs. Normal PMI, no JVD. No pulse deficits. Respiratory: Lungs have equal breath sounds bilaterally, clear to auscultation and percussion. No rales, rhonchi or wheezes noted. No increased work of breathing, no retractions or nasal flaring. Tenderness to left lateral ribs, ecchymosis forming between lower rib and upper pelvis Abdomen/GI: Soft, non-tender, with normal bowel sounds. No distension or tympany. No guarding or rebound. No evidence of tenderness throughout. Back: No spinal tenderness. No costovertebral tenderness. Full range of motion. MS/ Extremity: Pulses equal, no cyanosis. Neurovascular intact. Full, normal range of motion. Neuro: Awake and alert, GCS 15, oriented to person, place, time, and situation. Cranial nerves II-XII grossly intact. Motor strength 5/5 in all extremities. Sensory grossly intact. Cerebellar exam normal. Normal gait. Psych: Awake, alert, with orientation to person, place and time. Behavior, mood, and affect are within normal limits. snw
--- NOTE | 2022-10-01 03:06 | ER ---
Nurse's Notes [facility] Name: Angelo Gonzalez Age: 87 yrs Sex: Male : 1935 Arrival Date: 10/01/2022 Time: 01:18 Bed 18 Private MD: Diagnosis: Fall on same level, unspecified;Contusion of right front wall of thorax;Disorder of the skin and subcutaneous tissue, unspecified-skin tear Presentation: 10/01 01:35 Chief complaint: Patient states: fell after getting out of bed reports hit left side on kl door jamb and skin tar noted to left elbow reports took first dose of Tramadol prior to bed for knee pain. Care prior to arrival: None. Mechanism of Injury: Fall same level. Trauma event details: Injury occurred in the [facility], Injury occurred: at home. Injury occurred: October 01, 2022 Injury occurred at: 01:00. 01:35 Acuity: ARMIDA 3 kl 01:35 Method Of Arrival: Wheelchair kl 02:43 Ebola Screen: No symptoms or risks identified at this time. Initial Sepsis Screen: Does aa9 the patient meet any 2 criteria? No. Patient's initial sepsis screen is negative. Does the patient have a suspected source of infection? No. Patient's initial sepsis screen is negative. Risk Assessment: Do you want to hurt yourself or someone else? Patient reports no desire to harm self or others. Onset of symptoms was October 01, 2022. 03:29 Coronavirus screen: Vaccine status: Patient reports receiving the 2nd dose of the covid aa9 vaccine. Trauma Activation: Physician: ED Physician; Name: Hong; Notified At: ; Arrived At: Physician: General Surgeon; Name: ; Notified At: ; Arrived At: Physician: Radiology; Name: ; Notified At: ; Arrived At: Physician: Respiratory; Name: ; Notified At: ; Arrived At: Physician: Lab; Name: ; Notified At: ; Arrived At: Historical: - Allergies: 01:37 No Known Allergies; kl - Home Meds: 01:37 Plavix Oral [Active]; kl - PMHx: 01:37 aortic aneurysm; Arthritis; BPH; Cancer; bladder; Hypertension; Hypothyroidism; kl - PSHx: 01:37 None; kl - Immunization history:: Last tetanus immunization: up to date. - Social history:: Smoking status: Patient denies any tobacco usage or history of. Screenin:47 Abuse screen: Denies threats or abuse. Denies injuries from another. Nutritional aa9 screening: No deficits noted. Tuberculosis screening: No symptoms or risk factors identified. 02:43 [facility] ED Fall Risk Assessment (Adult) History of falling in the last 3 months, aa9 including since admission Yes- single mechanical fall (1 pt) Confusion or Disorientation No (0 pts) Intoxicated or Sedated No (0 pts) Impaired Gait No (0 pts) Mobility Assist Device Used No (0 pt) Altered Elimination No (0 pt) Score/Fall Risk Level 0 - 2 = Low Risk Oriented to surroundings, Maintained a safe environment. Primary Survey: 01:38 NO uncontrolled hemorrhage observed. A: The client is awake and alert. The airway is kl patent. Breathing/Chest: Spontaneous respiratory effort, equal unlabored respirations, breath sounds clear bilaterally, regular pattern, symmetrical chest rise and fall. Circulation: No external hemorrhage present. Regular and strong central pulse, skin warm/dry/normal color. Disability Pupils are equal, round, reactive to light and accommodation. Exposure/Environment: There is no evidence of uncontrolled external bleeding. A warming method has been applied: A warm blanket has been provided to the patient. 01:48 Reassessment Breathing: Spontaneous respiratory effort, equal unlabored respirations, aa9 breath sounds clear bilaterally, regular pattern with symmetrical chest rise and fall. Assessment: 01:36 General: Appears in no apparent distress. well groomed, well developed, well nourished, kl Behavior is calm, cooperative. Pain: Complains of pain in anterior aspect of right lateral abdomen and posterior aspect of right lateral abdomen Pain currently is 5 out of 10 on a pain scale. Neuro: No deficits noted. EENT: No deficits noted. Cardiovascular: No deficits noted. Respiratory: No deficits noted. GI: No deficits noted. No signs and/or symptoms were reported involving the gastrointestinal system. : No deficits noted. No signs and/or symptoms were reported regarding the genitourinary system. Derm: Wound noted left elbow and palmar aspect of left forearm Wound is skin tear with bruising pt takes plavix. 02:41 General: wound cleaned with saline and dressed with non adherent gauze, wrapped with aa9 laura wrap. patient tolerated well. . Neuro: Level of Consciousness is awake, alert, obeys commands, Oriented to person, place, time, situation, Moves all extremities. Respiratory: Airway is patent Respiratory effort is even, unlabored. Derm: Wound noted left arm Wound is skin tear. Vital Signs: 01:46 BP 130 / 62; Pulse 85; Resp 20 S; Pulse Ox 97% on R/A; aa9 03:29 BP 137 / 75; Pulse 89; Resp 19; Pulse Ox 99% on R/A; Weight 74.84 kg (R); Height 5 ft. aa9 6 in. (167.64 cm) (R); 03:29 Body Mass Index 26.63 (74.84 kg, 167.64 cm) aa9 Annia Coma Score: 02:43 Eye Response: spontaneous(4). Verbal Response: oriented(5). Motor Response: obeys aa9 commands(6). Total: 15. Trauma Score (Adult): 02:43 Eye Response: spontaneous(1); Verbal Response: oriented(1); Motor Response: obeys aa9 commands(2); Systolic BP: > 89 mm Hg(4); Respiratory Rate: 10 to 29 per min(4); Annia Score: 15; Trauma Score: 12 ED Course: 01:18 Patient arrived in ED. jj6 01:34 Autumn Carreon [facility]NP-C [facility]. snw 01:34 Georges Pitts MD is Attending Physician. snw 01:36 Triage completed. kl 01:47 Patient has correct armband on for positive identification. Call light in reach. Adult aa9 w/ patient. Pulse ox on. NIBP on. 01:47 Patient maintains SpO2 saturation greater than 95% on room air. Thermoregulation: warm aa9 blanket given to patient. 02:22 XRAY Ribs LEFT In Process Unspecified. EDMS 02:41 Wanda Kidd, DANK is Primary Nurse. aa9 02:44 Arm band placed on. aa9 02:44 No provider procedures requiring assistance completed. aa9 03:29 Patient did not have IV access during this emergency room visit. aa9 Administered Medications: No medications were administered Medication: 02:43 VIS not applicable for this client. aa9 Output: 03:29 Urine: 0ml; Total: 0ml. aa9 Outcome: 03:05 Discharge ordered by . snw 03:29 Discharged to home via wheelchair, with family. aa9 03:29 Condition: stable 03:29 Discharge instructions given to patient, family, Instructed on discharge instructions, follow up and referral plans. Demonstrated understanding of instructions, follow-up care. 03:29 Patient's length of stay was not longer than 2 hours. aa9 03:30 Patient left the ED. aa9 Signatures: Dispatcher [employer] EDPamela Bridges, RN RN Autumn Anyaa, SIDE DOOR MAN-C SIDE DOOR MAN-Csnw Ellie Melendez6 Wanda Kidd, DANK RN aa9
[2022-10-01 03:36] VITALS: BP 137/75; O2SAT 99
--- NOTE | 2022-10-01 20:32 | RAD REPORT ---
EXAM DESCRIPTION: RAD - Ribs Left - 10/01/2022 2:20 am CLINICAL HISTORY: The patient is 87 years old and is Male; SMASH INJURY TECHNIQUE: Frontal and oblique views of the left ribs. COMPARISON: No relevant prior studies available. FINDINGS: LUNGS: Unremarkable as visualized. No consolidation. PLEURAL SPACE: Unremarkable. No pneumothorax. BONES/JOINTS: Multilevel degenerative change of the spine is present. No acute fracture. VASCULATURE: Atherosclerosis of the aorta is present. IMPRESSION: No acute findings in the left ribs. Electronically signed by: Carey Shi MD 10/01/2022 2:47 AM AUDITOR Due to temporary technical issues with the PACS/Fluency reporting system, reports are being signed by the in house radiologists without review as a courtesy to insure prompt reporting. The interpreting radiologist is fully responsible for the content of the report.
== END 2022-10-01 03:30 | disposition home or self-care (01) ==
LOC: ER 01:15
DX: S20.212A Contusion of left front wall of thorax, initial encounter (principal); S41.112A Laceration without foreign body of left upper arm, initial encounter; W18.30XA Fall on same level, unspecified, initial encounter; I10 Essential (primary) hypertension; Z79.01 Long term (current) use of anticoagulants
CPT/HCPCS: 99284

== ENCOUNTER 2023-07-26 08:48 | Emergency (ER) | payer OTHER ==
--- OUTSIDE RECORDS SUMMARY | 2023-07-26 09:05 | XMS REPORT | Continuity of Care Document ---
:1935 Author Organization [facility] t Address [address] [address] [place] [address] Care Team Providers Name Role Phone Ari Flores Attending Clinician Unavailable Jammie Menard Attending Clinician Unavailable Rodolfo Mojica Attending Clinician Payers Payer Name Policy Type Policy Effective Date Expiration Date Sour ce Number [facility] 53 [id number] Commo n Spirit care Shared - [facility] 53 [id number] [facility] [id number] [facility] 00:00:[address] [facility] MEDICARE NOVITAS MB [id number] 2000 [facility] 00:00:00 [facility] Problems Condition Condition Condition Status Onset Resolution Last Treating Co mments Source Name Details Category Date Date Treatment Clinician Date [id number] Right leg Problem Com mon pain Spirit - [facility] [id number] Other tear Problem Co mmon of medial Spirit meniscus - [facility] of right St knee as [facility] current Medical injury, Center subsequent encounter [id number] 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 [facility] [id number] Status Problem Common post Spirit arthroscop - CHI y of knee [facility] [id number] Voiding Problem Commo n dysfunctio Spirit n - [facility] [id number] 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 [facility] [id number] Hepatic Problem Common cyst Spirit - [facility] [id number] Right Problem Common upper lobe Spirit pulmonary - CHI nodule [facility] [id number] Left Problem Common thyroid Spirit nodule - [facility] [id number] Paroxysmal Problem Co mmon atrial Spirit fibrillati - CHI on [facility] [id number] History of Problem Co mmon bladder Spirit cancer - [facility] [id number] Lesion of Problem Com mon bladder Spirit - [facility] [id number] 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 right knee [facility] [id number] [place], [place] [address] joint, Spirit knee, - [facility] right [facility] Constipati Constipati Problem C ommon on on Spirit - [facility] Urinary Urinary Problem Common incontinen incontinen Sp kelsey ce ce - [facility] [id number] Contusion Problem Co mmon [id number] of right Spirit knee, - [facility] initial [facility] [id number] Hypothyroi Problem Co mmon dism Spirit (acquired) - [facility] [id number] Thoracic Problem Commo n aortic Spirit aneurysm - [facility] without [facility] [id number] PAD Problem Common (periphera Spirit l artery - CHI disease) [facility] [id number] Essential Problem Comm on hypertensi Spirit on - [facility] [id number] Benign Problem Common prostatic Spirit hyperplasi - 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 [id number] Malignant Problem Com mon neoplasm Spirit of urinary - CHI bladder, St unspecifie [facility] [id number] Pain in Problem Common joint of Spirit right knee - [facility] Amnesia Amnesia Problem Active 2023-07-08 Me addisona (finding) (finding) 00:12:46 l Active Eliud Problem 07/08/2023 [facility] Hyperlipid Hyperlipi Problem Active 2023-07-08 Memoria emia demia 00:12:46 l (disorder) (disorder) He rmann Active Problem 07/08/2023 [facility] Hypertensi Problem Active 2023-07-08 M emoria ve Hypertensi 00:12:46 l disorder, ve Eliud systemic disorder, arterial systemic (disorder) arterial (disorder) Active Problem 07/08/2023 [facility] Hypothyroi Hypothyro Problem Active 2023-07-08 Memoria dism idism 00:12:46 l (disorder) (disorder) He rmann Active Problem 07/08/2023 [facility] Impaired Impaired Problem Active 2023-07-08 Memoria cognition cognition 00:12:46 l (finding) (finding) Herm jenn Active Problem 07/08/2023 [facility] Atrial Atrial Problem Active 2023-07-08 Oleg caren fibrillati fibrillati 00:12:46 l on on Osborne (disorder) (disorder) Active Problem 07/08/2023 [facility] Dementia Dementia Problem Active 2023-07-08 Memoria (disorder) (disorder) 00:12:46 l Active Eliud Problem 07/08/2023 [facility] Allergies, Adverse Reactions, Alerts This patient has no known allergies or adverse reactions. Social History Social Habit Start Date Stop Date Quantity Comments Source History of Tobacco Use Co mmon [facility] Sex Assigned At Com mon [facility] Smoking Status Start Date Stop Date Source Tobacco smoking status [facility] Medications Ordered Filled Start Stop Current Ordering Indication Dosage Frequency Signature Comments Components Source Medication Medication Date Date Medication? Clinician (SIG) Name Name Trisha Rico 2022-08 No 2mL Common 09-17 Spirit 00:00: - [facility] Trisha Anngan 2022-08 No 2mL Common 09-17 Spirit 00:00: - [facility] Trisha Rico 2022-08 No 2mL Common 09-17 Spirit 00:00: - [facility] Hyalgan Hyalgan 2022-08 No 2mL Common 09-17 Spirit 00:00: - [facility] Hyalgan Hyalgan 2022-08 No 2mL Common 09-17 Spirit 00:00: - [facility] Namenda 5 2022-08 Yes 5 mg = 1 Oleg caren mg oral 1-16 tab, PO, l tablet 20:31: BID, # 180 Chrissy nn 00 tab, 1 Refill(s), Pharmacy: [id number], 165.1, cm, 06/10/23 10:53:00 CDT, Height, 75, kg, 06/10/23 10:53:00 CDT, Weight Namenda 5 2022-08 Yes 5 mg = 1 Oleg caren mg oral 0-20 tab, PO, l tablet 16:22: BID, # 60 Maco n 00 tab, 3 Refill(s), Pharmacy: [id number], 165.1, cm, 06/10/23 10:53:00 CDT, Height, 75, kg, 06/10/23 10:53:00 CDT, Weight Arnuity 2022-08 Yes PO, 0 Memoria Ellipta 0-20 Refill(s) l 15:53: Osborne 00 Courtland 2022-08 Yes = 1 tab, Memoria Thyroid 15 0-20 PO, 0 l mg oral 15:53: Refill(s) Chrissy nn tablet 00 Lidocaine Lidocaine 2022-08 No 5mL Com mon 0-04 Spirit 00:00: - [facility] Kenalog Kenalog 2022-08 No 2mL Common (Triamcinol (Triamcinol 0-04 S pirit one) one) 00:00: - [facility] Lidocaine Lidocaine 2022-08 No 5mL Com mon 0-04 Spirit 00:00: - [facility] Kenalog Kenalog 2022-08 No 2mL Common (Triamcinol (Triamcinol 0-04 S pirit one) one) 00:00: - [facility] Lidocaine Lidocaine 2022-08 No 5mL Com mon 0-04 Spirit 00:00: - [facility] Kenalog Kenalog 2022-08 No 2mL Common (Triamcinol (Triamcinol 0-04 S pirit one) one) 00:00: - CHI 00 [facility] Lidocaine Lidocaine 2022- No 5mL Com mon 0-04 Spirit 00:00: - CHI 00 [facility] Kenalog Kenalog 2022-08 No 2mL Common (Triamcinol (Triamcinol 0-04 S pirit one) one) 00:00: - CHI 00 [facility] Lidocaine Lidocaine 2022- No 5mL Com mon 0-04 Spirit 00:00: - CHI 00 [facility] Kenalog Kenalog 2022-08 No 2mL Common (Triamcinol (Triamcinol 0-04 S pirit one) one) 00:00: - CHI 00 [facility] Lidocaine Lidocaine 2022- No 5mL Com mon 0-04 Spirit 00:00: - CHI 00 [facility] Kenalog Kenalog 2022-08 No 2mL Common (Triamcinol (Triamcinol 0-04 S pirit one) one) 00:00: - CHI 00 [facility] Lidocaine Lidocaine 2022- No 5mL Com mon 0-04 Spirit 00:00: - CHI 00 [facility] Kenalog Kenalog 2022- No 2mL Common (Triamcinol (Triamcinol 0-04 S pirit one) one) 00:00: - CHI 00 [facility] Lidocaine Lidocaine 2022- No 5mL Com mon 0-04 Spirit 00:00: - CHI 00 [facility] Kenalog Kenalog 2022-08 No 2mL Common (Triamcinol (Triamcinol 0-04 S pirit one) one) 00:00: - CHI 00 [facility] Lidocaine Lidocaine 2022- No 5mL Com mon 0-04 Spirit 00:00: - CHI 00 [facility] Kenalog Kenalog 2022- No 2mL Common (Triamcinol (Triamcinol 0-04 S pirit one) one) 00:00: - CHI 00 [facility] Lidocaine Lidocaine 2022-1 No 5mL Com mon 0-04 Spirit 00:00: - CHI 00 [facility] Kenalog Kenalog 2022-08 No 2mL Common (Triamcinol (Triamcinol 0-04 S pirit one) one) 00:00: - CHI 00 [facility] Lidocaine Lidocaine 2022- No 5mL Com mon 0-04 Spirit 00:00: - CHI 00 [facility] Kenalog Kenalog 2022-08 No 2mL Common (Triamcinol (Triamcinol 0-04 S pirit one) one) 00:00: - [facility] Lidocaine Lidocaine 2022- No 5mL Com mon 0-04 Spirit 00:00: - CHI 00 [facility] Kenalog Kenalog 2022-08 No 2mL Common (Triamcinol (Triamcinol 0-04 S pirit one) one) 00:00: - CHI 00 [facility] Lidocaine Lidocaine 2022- No 5mL Com mon 0-04 Spirit 00:00: - CHI 00 [facility] Kenalog Kenalog 2022-08 No 2mL Common (Triamcinol (Triamcinol 0-04 S pirit one) one) 00:00: - CHI 00 [facility] Lidocaine Lidocaine 2022- No 5mL Com mon 0-04 Spirit 00:00: - CHI 00 [facility] Kenalog Kenalog 2022-08 No 2mL Common (Triamcinol (Triamcinol 0-04 S pirit one) one) 00:00: - CHI 00 [facility] Lidocaine Lidocaine 2022- No 5mL Com mon 0-04 Spirit 00:00: - [facility] Kenalog Kenalog 2022-08 No 2mL Common (Triamcinol (Triamcinol 0-04 S pirit one) one) 00:00: - [facility] Pseudoeph-B Pseudoeph-B 2022-08 No Pseudoeph- romphen-DM romphen-DM 0-03 Bromphen-D 00:00: M MG/5ML MG/5ML 00 MG/5ML Pseudoeph-B Pseudoeph-B 2022-08 No Pseudoeph- romphen-DM romphen-DM 0-03 Bromphen-D 00:00: M 30-2-10 MG/5ML MG/5ML 00 MG/5ML Pseudoeph-B Pseudoeph-B 2022-08 No Pseudoeph- romphen-DM romphen-DM 0-03 Bromphen-D 00:00: M 30-2-10 MG/5ML MG/5ML 00 MG/5ML Pseudoeph-B Pseudoeph-B 2022-08 No Pseudoeph- romphen-DM romphen-DM 0-03 Bromphen-D 00:00: M 30-2-10 MG/5ML MG/5ML 00 MG/5ML Pseudoeph-B Pseudoeph-B 2022-08 No Pseudoeph- romphen-DM romphen-DM 0-03 Bromphen-D 00:00: M 30-2-10 MG/5ML MG/5ML 00 MG/5ML Pseudoeph-B Pseudoeph-B 2022-08 No Pseudoeph- romphen-DM romphen-DM 0-03 Bromphen-D 00:00: M 30-2-10 MG/5ML MG/5ML 00 MG/5ML Pseudoeph-B Pseudoeph-B 2022-08 No Pseudoeph- romphen-DM romphen-DM 0-03 Bromphen-D 00:00: M 30-2-10 MG/5ML MG/5ML 00 MG/5ML Pseudoeph-B Pseudoeph-B 2022-08 No Pseudoeph- romphen-DM romphen-DM 0-03 Bromphen-D 00:00: M 30-2-10 MG/5ML MG/5ML 00 MG/5ML Pseudoeph-B Pseudoeph-B 2022-08 No Pseudoeph- romphen-DM romphen-DM 0-03 Bromphen-D 00:00: M 30-2-10 MG/5ML MG/5ML 00 MG/5ML Pseudoeph-B Pseudoeph-B 2022-08 No Pseudoeph- romphen-DM romphen-DM 0-03 Bromphen-D 00:00: M 30-2-10 MG/5ML MG/5ML 00 MG/5ML Pseudoeph-B Pseudoeph-B 2022-08 No Pseudoeph- romphen-DM romphen-DM 0-03 Bromphen-D 00:00: M 30-2-10 MG/5ML MG/5ML 00 MG/5ML Pseudoeph-B Pseudoeph-B 2022-08 No Pseudoeph- romphen-DM romphen-DM 0-03 Bromphen-D 00:00: M 30-2-10 MG/5ML MG/5ML 00 MG/5ML Pseudoeph-B Pseudoeph-B 2022-08 No Pseudoeph- romphen-DM romphen-DM 0-03 Bromphen-D 00:00: M 30-2-10 MG/5ML MG/5ML 00 MG/5ML Pseudoeph-B Pseudoeph-B 2022-08 No Pseudoeph- romphen-DM romphen-DM 0-03 Bromphen-D 00:00: M 30-2-10 MG/5ML MG/5ML 00 MG/5ML Pseudoeph-B Pseudoeph-B 2022-08 No Pseudoeph- romphen-DM romphen-DM 0-03 Bromphen-D 00:00: M 30-2-10 MG/5ML MG/5ML 00 MG/5ML Eliquis 5 Yes 5 mg, PO, Mem oria mg oral 05-20 Q12H, tab, l tablet 17:56: 0 Osborne 00 Refill(s), For Atrial Fibrilatio n metoprolol Yes 12.5 mg = Me moria tartrate 25 -29 0.5 tab, l mg oral 17:55: PO, BID, 0 Herm jenn tablet 00 Refill(s) Hyalgan Hyalgan 2023-0 No 2mL Common 12-20 Spirit 00:00: - [facility] Hyalgan Hyalgan 2023-0 No 2mL Common 12-20 Spirit 00:00: - [facility]I 00 [facility] Hyalgan Hyalgan 2023-0 No 2mL Common 12-20 Spirit 00:00: - [facility] Hyalgan Hyalgan 2023-0 No 2mL Common 12-20 Spirit 00:00: - [facility] Hyalgan Hyalgan 2023-0 No 2mL Common 12-20 Spirit 00:00: - [facility]I 00 [facility] Hyalgan Hyalgan 2023-0 No 2mL Common 12-20 Spirit 00:00: - [facility] Hyalgan Hyalgan 2023-0 No 2mL Common 12-20 Spirit 00:00: - [facility] Hyalgan Hyalgan 2023-0 No 2mL Common 12-20 Spirit 00:00: - [facility] Hyalgan Hyalgan 2023-0 No 2mL Common 12-20 Spirit 00:00: - [facility] Hyalgan Hyalgan 2023-0 No 2mL Common 12-20 Spirit 00:00: - [facility] Hyalgan Hyalgan 2023-0 No 2mL Common 12-20 Spirit 00:00: - [facility] Hyalgan Hyalgan 2023-0 No 2mL Common 12-20 Spirit 00:00: - [facility] Hyalgan Hyalgan 2023-0 No 2mL Common 12-20 Spirit 00:00: - [facility] Hyalgan Hyalgan 2023-0 No 2mL Common 12-20 Spirit 00:00: - [facility]I 00 [facility] Hyalgan Hyalgan 2023-0 No 2mL Common 12-20 Spirit 00:00: - [facility]I 00 [facility] Hyalgan Hyalgan 2023-0 No 2mL Common 12-20 Spirit 00:00: - [facility]I 00 [facility] Hyalgan Hyalgan 2023-0 No 2mL Common 12-20 Spirit 00:00: - [facility]I 00 [facility] Hyalgan Hyalgan 2023-0 No 2mL Common 12-10 Spirit 00:00: - [facility]I 00 [facility] Hyalgan Hyalgan 2023-0 No 2mL Common 12-10 Spirit 00:00: - [facility]I 00 [facility] Hyalgan Hyalgan 3-0 No 2mL Common 12-10 Spirit 00:00: - [facility]I 00 [facility] Hyalgan Hyalgan 3-0 No 2mL Common 12-10 Spirit 00:00: - [facility]I 00 [facility] Hyalgan Hyalgan 3-0 No 2mL Common 12-10 Spirit 00:00: - [facility]I 00 [facility] Hyalgan Hyalgan 3-0 No 2mL Common 12-10 Spirit 00:00: - [facility]I 00 [facility] Hyalgan Hyalgan 3-0 No 2mL Common 12-10 Spirit 00:00: - [facility] 00 [facility] Hyalgan Hyalgan 3-0 No 2mL Common 12-10 Spirit 00:00: - [facility]I 00 [facility] Hyalgan Hyalgan 3-0 No 2mL Common 12-10 Spirit 00:00: - [facility] Hyalgan Hyalgan 3-0 No 2mL Common 12-10 Spirit 00:00: - [facility]I 00 [facility] Hyalgan Hyalgan 3-0 No 2mL Common 12-10 Spirit 00:00: - [facility]I 00 [facility] Hyalgan Hyalgan 3-0 No 2mL Common 12-10 Spirit 00:00: - [facility]I 00 [facility] Hyalgan Hyalgan 3-0 No 2mL Common 12-10 Spirit 00:00: - [facility] 00 [facility] Hyalgan Hyalgan 3-0 No 2mL Common 12-10 Spirit 00:00: - [facility]I 00 [facility] Hyalgan Hyalgan 3-0 No 2mL Common 12-10 Spirit 00:00: - [facility]I 00 [facility] Hyalgan Hyalgan 3-0 No 2mL Common 12-10 Spirit 00:00: - [facility]I 00 [facility] Hyalgan Hyalgan 3-0 No 2mL Common 12-10 Spirit 00:00: - CHI 00 [facility] donepezil 5 3-0 Yes = 1 tab, Me moria mg oral 4-20 PO, Daily, l tablet 19:32: # 90 tab, Maco n 00 1 Refill(s), Pharmacy: [id number], 165.1, cm, 04/20/23 11:27:00 CDT, Height, 75, kg, 12/09/22 11:27:00 CDT, Weight Hyalgan Hyalgan 2023-0 No 2mL Common 4-13 Spirit 00:00: - CHI 00 [facility] Hyalgan Hyalgan 3-0 No 2mL Common 4-13 Spirit 00:00: - [facility] 00 [facility] Hyalgan Hyalgan 3-0 No 2mL Common 4-13 Spirit 00:00: - [facility] 00 [facility] Hyalgan Hyalgan 2023-0 No 2mL Common 4-13 Spirit 00:00: - [facility] 00 [facility] Hyalgan Hyalgan 3-0 No 2mL Common 4-13 Spirit 00:00: - [facility] 00 [facility] Hyalgan Hyalgan 3-0 No 2mL Common 4-13 Spirit 00:00: - [facility] Hyalgan Hyalgan 2023-0 No 2mL Common 4-13 Spirit 00:00: - [facility] Hyalgan Hyalgan 3-0 No 2mL Common 4-13 Spirit 00:00: - [facility] 00 [facility] Hyalgan Hyalgan 3-0 No 2mL Common 4-13 Spirit 00:00: - [facility] Hyalgan Hyalgan 3-0 No 2mL Common 4-13 Spirit 00:00: - [facility] 00 [facility] Hyalgan Hyalgan 2023-0 No 2mL Common 4-13 Spirit 00:00: - [facility] 00 [facility] Hyalgan Hyalgan 2023-0 No 2mL Common 4-13 Spirit 00:00: - [facility] Hyalgan Hyalgan 2023-0 No 2mL Common 4-13 Spirit 00:00: - [facility] 00 [facility] Hyalgan Hyalgan 2023-0 No 2mL Common 4-13 Spirit 00:00: - [facility]I 00 [facility] Hyalgan Hyalgan 2023-0 No 2mL Common 4-13 Spirit 00:00: - [facility] 00 [facility] Hyalgan Hyalgan 2023-0 No 2mL Common 4-13 Spirit 00:00: - [facility]I 00 [facility] Hyalgan Hyalgan 2023-0 No 2mL Common 4-13 Spirit 00:00: - [facility] esomeprazol Yes TAKE 1 Oleg caren e 20 mg 3-09 CAPSULE BY l oral 19:33: MOUTH Eliud delayed 00 EVERY DAY release FOR 90 capsule DAYS clopidogrel Yes TAKE 1 Oleg caren 75 mg oral 3-09 TABLET BY l tablet 19:33: MOUTH Eliud 00 EVERY DAY bisoprolol Yes TAKE 1 Memor ia 5 mg oral 3-09 TABLET BY l tablet 19:33: MOUTH Osborne 00 EVERY DAY IN THE EVENING Courtland Yes TAKE 1 Memoria Thyroid 60 3-09 TABLET BY l mg oral 19:33: MOUTH Osborne tablet 00 EVERY DAY fluocinolon Yes USE A FEW M emoria e otic 3-09 DROPS l 0.01% drops 19:33: NEEDED UP H ermann 00 TO TWICE DAILY FOR ITCHING tamsulosin Yes TAKE 1 Memor ia 0.4 mg oral 3-09 CAPSULE BY l capsule 19:33: MOUTH Eliud 00 EVERY DAY FOR 90 DAYS Breo Yes TAKE 1 Memoria Ellipta 200 3-09 PUFF BY l mcg-25 19:33: MOUTH Eliud mcg/inh 00 EVERY DAY inhalation powder Centrum Yes 1 tab, PO, Oleg caren Silver oral 3-09 Daily, # l tablet 19:32: 30 tab, 0 Maco n 00 Refill(s) aspirin 81 0 Yes 81 mg = 1 Me moria mg oral 3-09 cap, PO, l capsule 19:30: Daily, 0 Maco n 00 Refill(s) Myrbetriq 0 Yes 25 mg = 1 Mem oria 25 mg oral 3-09 tab, PO, l tablet, 19:28: Daily, # Maco n extended 00 30 tab, 5 release Refill(s) Kenalog Kenalog 2021-08 No 40mg Common (Triamcinol (Triamcinol 1-23 S pirit one) one) 00:00: - [facility] Lidocaine Lidocaine 2021-08 No 10mg Com mon - Spirit 00:00: - [facility] Kenalog Kenalog 2021-08 No 40mg Common (Triamcinol (Triamcinol 1-23 S pirit one) one) 00:00: - CHI 00 [facility] Lidocaine Lidocaine 2021- No 10mg Com 09-13 Spirit 00:00: - CHI 00 [facility] Kenalog Kenalog 2021-08 No 40mg Common (Triamcinol (Triamcinol 1-23 S pirit one) one) 00:00: - CHI 00 [facility] Lidocaine Lidocaine 2021- No 10mg Com 09-13 Spirit 00:00: - CHI 00 [facility] Kenalog Kenalog 2021-08 No 40mg Common (Triamcinol (Triamcinol 1-23 S pirit one) one) 00:00: - [facility] Lidocaine Lidocaine 2021- No 10mg Com 09-13 Spirit 00:00: - [facility] Kenalog Kenalog 2021-08 No 40mg Common (Triamcinol (Triamcinol 1-23 S pirit one) one) 00:00: - [facility] Lidocaine Lidocaine 2021- No 10mg Com 09-13 Spirit 00:00: - [facility] Kenalog Kenalog 2021-08 No 40mg Common (Triamcinol (Triamcinol 1-23 S pirit one) one) 00:00: - [facility]I 00 [facility] Lidocaine Lidocaine 2021- No 10mg Com 09-13 Spirit 00:00: - [facility] Kenalog Kenalog 2021- No 40mg Common (Triamcinol (Triamcinol 1-23 S pirit one) one) 00:00: - [facility] Lidocaine Lidocaine 2021- No 10mg Com 09-13 Spirit 00:00: - [facility] Kenalog Kenalog 2021- No 40mg Common (Triamcinol (Triamcinol 1-23 S pirit one) one) 00:00: - [facility]I 00 [facility] Lidocaine Lidocaine 2021- No 10mg Com 09-13 Spirit 00:00: - [facility] Kenalog Kenalog 2021-08 No 40mg Common (Triamcinol (Triamcinol 1-23 S pirit one) one) 00:00: - [facility]I 00 [facility] Lidocaine Lidocaine 2021- No 10mg Com 09-13 Spirit 00:00: - [facility]I 00 [facility] Kenalog Kenalog 2021-08 No 40mg Common (Triamcinol (Triamcinol 1-23 S pirit one) one) 00:00: - [facility] Lidocaine Lidocaine 2021- No 10mg Com 09-13 Spirit 00:00: - [facility] 00 [facility] Lidocaine Lidocaine 2021- No 10mg Com 09-13 Spirit 00:00: - [facility] Kenalog Kenalog 2021- No 40mg Common (Triamcinol (Triamcinol 1-23 S pirit one) one) 00:00: - [facility] Lidocaine Lidocaine 2021- No 10mg Com 09-13 Spirit 00:00: - [facility] Kenalog Kenalog 2021-08 No 40mg Common (Triamcinol (Triamcinol 1-23 S pirit one) one) 00:00: - [facility] Kenalog Kenalog 2021- No 40mg Common (Triamcinol (Triamcinol 1-23 S pirit one) one) 00:00: - [facility] 00 [facility] Lidocaine Lidocaine 2021- No 10mg Com 09-13 Spirit 00:00: - [facility] Kenalog Kenalog 2021- No 40mg Common (Triamcinol (Triamcinol 1-23 S pirit one) one) 00:00: - [facility] 00 [facility] Lidocaine Lidocaine 2021- No 10mg Com 09-13 Spirit 00:00: - [facility] 00 [facility] Kenalog Kenalog 2021- No 40mg Common (Triamcinol (Triamcinol 1-23 S pirit one) one) 00:00: - [facility] 00 [facility] Lidocaine Lidocaine 2021- No 10mg Com 09-13 Spirit 00:00: - [facility] Kenalog Kenalog 2021-08 No 40mg Common (Triamcinol (Triamcinol 1-23 S pirit one) one) 00:00: - [facility] 00 [facility] Lidocaine Lidocaine 2021- No 10mg Com 09-13 Spirit 00:00: - [facility] 00 [facility] Kenalog Kenalog 2021- No 40mg Common (Triamcinol (Triamcinol 1-23 S pirit one) one) 00:00: - [facility] 00 [facility] Lidocaine Lidocaine 2021- No 10mg Com 09-13 Spirit 00:00: - [facility] 00 [facility] Kenalog Kenalog 2021- No 40mg Common (Triamcinol (Triamcinol 1-23 S pirit one) one) 00:00: - [facility] Lidocaine Lidocaine 2021- No 10mg Com 09-13 Spirit 00:00: - [facility] Kenalog Kenalog 2021- No 40mg Common (Triamcinol (Triamcinol 1-23 S pirit one) one) 00:00: - [facility] Lidocaine Lidocaine 2021- No 10mg Com 09-13 Spirit 00:00: - [facility] 00 [facility] Kenalog Kenalog 2021- No 40mg Common (Triamcinol (Triamcinol 1-23 S pirit one) one) 00:00: - [facility] 00 [facility] Lidocaine Lidocaine 2021- No 10mg Com 09-13 Spirit 00:00: - [facility] Kenalog Kenalog 2021- No 40mg Common (Triamcinol (Triamcinol 1-23 S pirit one) one) 00:00: - [facility] Lidocaine Lidocaine 2021- No 10mg Com 09-13 Spirit 00:00: - [facility] Kenalog Kenalog 2021- No 40mg Common (Triamcinol (Triamcinol 1-23 S pirit one) one) 00:00: - [facility] 00 [facility] Lidocaine Lidocaine 2021-1 No 10mg Com 09-13 Spirit 00:00: - [facility] Kenalog Kenalog 2021- No 40mg Common (Triamcinol (Triamcinol 1-23 S pirit one) one) 00:00: - [facility] 00 [facility] Lidocaine Lidocaine 2021- No 10mg Com 09-13 Spirit 00:00: - [facility] 00 [facility] Kenalog Kenalog 2021-08 No 40mg Common (Triamcinol (Triamcinol 1-23 S pirit one) one) 00:00: - [facility] 00 [facility] Lidocaine Lidocaine 2021- No 10mg Com 09-13 Spirit 00:00: - [facility] 00 [facility] Kenalog Kenalog 2021-08 No 40mg Common (Triamcinol (Triamcinol 1-23 S pirit one) one) 00:00: - [facility] 00 [facility] Lidocaine Lidocaine 2021- No 10mg Com 09-13 Spirit 00:00: - [facility] Kenalog Kenalog 2021-08 No 40mg Common (Triamcinol (Triamcinol 1-23 S pirit one) one) 00:00: - [facility] Lidocaine Lidocaine 2021-08 No 10mg Com 09-13 Spirit 00:00: - [facility] Kenalog Kenalog 2021-08 No 40mg Common (Triamcinol (Triamcinol 1-23 S pirit one) one) 00:00: - [facility] Lidocaine Lidocaine 2021- No 10mg Com 09-13 Spirit 00:00: - [facility] traMADol-Ac traMADol-Ac 2021-08 No 2{table QID traMADol-A [...] eeded} en 00 37.5-325 MG traMADol-Ac traMADol-Ac 2022-1 No 2{table QID traMADol-A etaminophen etaminophen 1-21 ts_as_n cetaminoph 37.5-325 MG 37.5-325 MG 00:00: eeded} en 00 37.5-325 MG Acetaminoph Acetaminoph 2022-1 No 1{table QID [...] MG MG 00 300-30 MG Acetaminoph Acetaminoph 202-1 No 1{table QID Acetaminop en-Codeine en-Codeine 0-28 [...] traMADol-Ac traMADol-Ac No 2{table traMADol-A etaminophen etaminophen -29 ts_as_n cetaminoph 37.5-325 MG 37.5-325 MG 00:00: eeded} en 00 37.5-325 MG Lidocaine Lidocaine 2021-0 No 10mg Com 04-28 [facility] 00:00: - [facility] Kenalog Kenalog 2021-0 No 40mg Common (Triamcinol (Triamcinol 04-28 S pirit one) one) 00:00: - [facility] Lidocaine Lidocaine 2021-0 No 10mg Com 04-28 [facility] 00:00: - [facility] Kenalog Kenalog 2021-0 No 40mg Common (Triamcinol (Triamcinol - S pirit one) one) 00:00: - [facility] Lidocaine Lidocaine 2021-0 No 10mg Com 04-28 [facility] 00:00: - [facility] Kenalog Kenalog 2021-0 No 40mg Common (Triamcinol (Triamcinol 9-07 S pirit one) one) 00:00: - [facility] Lidocaine Lidocaine 2022-0 No 10mg Com 04-28 [facility] 00:00: - [facility] Kenalog Kenalog 2-0 No 40mg Common (Triamcinol (Triamcinol 9-07 S pirit one) one) 00:00: - [facility] Lidocaine Lidocaine 2022-0 No 10mg Com 04-28 [facility] 00:00: - [facility] Kenalog Kenalog 2-0 No 40mg Common (Triamcinol (Triamcinol 9-07 S pirit one) one) 00:00: - [facility] Lidocaine Lidocaine 2-0 No 10mg Com 04-28 [facility] 00:00: - [facility] Kenalog Kenalog 2-0 No 40mg Common (Triamcinol (Triamcinol 9-07 S pirit one) one) 00:00: - [facility] Lidocaine Lidocaine 2-0 No 10mg Com 04-28 [facility] 00:00: - [facility] Kenalog Kenalog 2-0 No 40mg Common (Triamcinol (Triamcinol 9-07 S pirit one) one) 00:00: - [facility] Lidocaine Lidocaine 2-0 No 10mg Com 04-28 [facility] 00:00: - [facility] Kenalog Kenalog 2-0 No 40mg Common (Triamcinol (Triamcinol 9-07 S pirit one) one) 00:00: - [facility] Lidocaine Lidocaine 2022-0 No 10mg Com 04-28 [facility] 00:00: - [facility] Kenalog Kenalog 2-0 No 40mg Common (Triamcinol (Triamcinol 9-07 S pirit one) one) 00:00: - [facility] Lidocaine Lidocaine 2022-0 No 10mg Com 04-28 [facility] 00:00: - [facility] Kenalog Kenalog 2-0 No 40mg Common (Triamcinol (Triamcinol 9-07 S pirit one) one) 00:00: - [facility] Lidocaine Lidocaine 2022-0 No 10mg Com 04-28 [facility] 00:00: - [facility] Kenalog Kenalog 2-0 No 40mg Common (Triamcinol (Triamcinol 9-07 S pirit one) one) 00:00: - [facility] Lidocaine Lidocaine 2022-0 No 10mg Com 04-28 [facility] 00:00: - [facility] Kenalog Kenalog 2-0 No 40mg Common (Triamcinol (Triamcinol 9-07 S pirit one) one) 00:00: - [facility] Lidocaine Lidocaine 2-0 No 10mg Com 04-28 [facility] 00:00: - [facility] Kenalog Kenalog 2-0 No 40mg Common (Triamcinol (Triamcinol 9-07 S pirit one) one) 00:00: - [facility] Lidocaine Lidocaine 2-0 No 10mg Com 04-28 [facility] 00:00: - [facility] Kenalog Kenalog 2-0 No 40mg Common (Triamcinol (Triamcinol 9-07 S pirit one) one) 00:00: - [facility] Lidocaine Lidocaine 2-0 No 10mg Com 04-28 [facility] 00:00: - [facility] Kenalog Kenalog 2-0 No 40mg Common (Triamcinol (Triamcinol 9-07 S pirit one) one) 00:00: - [facility] Lidocaine Lidocaine 2-0 No 10mg Com 04-28 [facility] 00:00: - [facility] Kenalog Kenalog 2-0 No 40mg Common (Triamcinol (Triamcinol 9-07 S pirit one) one) 00:00: - [facility] Lidocaine Lidocaine 2022-0 No 10mg Com 04-28 [facility] 00:00: - [facility] Kenalog Kenalog 2-0 No 40mg Common (Triamcinol (Triamcinol 9-07 S pirit one) one) 00:00: - [facility] Lidocaine Lidocaine 2022-0 No 10mg Com 04-28 [facility] 00:00: - [facility] Kenalog Kenalog 2022-0 No 40mg Common (Triamcinol (Triamcinol 9-07 S pirit one) one) 00:00: - [facility] Lidocaine Lidocaine 2022-0 No 10mg Com 04-28 [facility] 00:00: - [facility] Kenalog Kenalog 2022-0 No 40mg Common (Triamcinol (Triamcinol 9-07 S pirit one) one) 00:00: - [facility] Lidocaine Lidocaine 2022-0 No 10mg Com 04-28 [facility] 00:00: - [facility] Kenalog Kenalog 2022-0 No 40mg Common (Triamcinol (Triamcinol 9-07 S pirit one) one) 00:00: - [facility] Lidocaine Lidocaine 2022-0 No 10mg Com 04-28 [facility] 00:00: - [facility] Kenalog Kenalog 2-0 No 40mg Common (Triamcinol (Triamcinol 9-07 S pirit one) one) 00:00: - [facility] Lidocaine Lidocaine 2022-0 No 10mg Com 04-28 [facility] 00:00: - [facility] Kenalog Kenalog 2022-0 No 40mg Common (Triamcinol (Triamcinol 9-07 S pirit one) one) 00:00: - [facility] Lidocaine Lidocaine 2022-0 No 10mg Com 04-28 [facility] 00:00: - [facility] Kenalog Kenalog 2022-0 No 40mg Common (Triamcinol (Triamcinol 9-07 S pirit one) one) 00:00: - [facility] Lidocaine Lidocaine 2022-0 No 10mg Com 04-28 [facility] 00:00: - [facility] Lidocaine Lidocaine 2022-0 No 10mg Com 04-28 [facility] 00:00: - [facility] Kenalog Kenalog 2-0 No 40mg Common (Triamcinol (Triamcinol 9-07 S pirit one) one) 00:00: - [facility] Kenalog Kenalog 2-0 No 40mg Common (Triamcinol (Triamcinol 9-07 S pirit one) one) 00:00: - [facility] Lidocaine Lidocaine 2-0 No 10mg Com 04-28 [facility] 00:00: - [facility] Kenalog Kenalog 2-0 No 40mg Common (Triamcinol (Triamcinol 9-07 S pirit one) one) 00:00: - [facility] Kenalog Kenalog 2-0 No 40mg Common (Triamcinol (Triamcinol 9-07 S pirit one) one) 00:00: - [facility] Lidocaine Lidocaine 2-0 No 10mg Com 04-28 [facility] 00:00: - [facility] Kenalog Kenalog 2-0 No 40mg Common (Triamcinol (Triamcinol 9-07 S pirit one) one) 00:00: - [facility] Lidocaine Lidocaine 2-0 No 10mg Com 04-28 [facility] 00:00: - [facility] Kenalog Kenalog 2-0 No 40mg Common (Triamcinol (Triamcinol 9-07 S pirit one) one) 00:00: - [facility] Lidocaine Lidocaine 2-0 No 10mg Com 04-28 [facility] 00:00: - [facility] Kenalog Kenalog 2-0 No 40mg Common (Triamcinol (Triamcinol 9-07 S pirit one) one) 00:00: - [facility] Lidocaine Lidocaine 2022-0 No 10mg Com 04-28 [facility] 00:00: - [facility] Kenalog Kenalog 2-0 No 40mg Common (Triamcinol (Triamcinol 9-07 S pirit one) one) 00:00: - [facility] Lidocaine Lidocaine 2022-0 No 10mg Com mon 9-07 [facility] 00:00: - [facility] Kenalog Kenalog 2-0 No 40mg Common (Triamcinol (Triamcinol 9-07 S pirit one) one) 00:00: - [facility] Lidocaine Lidocaine 2-0 No 10mg Com 04-28 [facility] 00:00: - [facility] Kenalog Kenalog 2-0 No 40mg Common (Triamcinol (Triamcinol 9-07 S pirit one) one) 00:00: - [facility] Lidocaine Lidocaine 2-0 No 10mg Com 04-28 [facility] 00:00: - [facility] Kenalog Kenalog 2-0 No 40mg Common (Triamcinol (Triamcinol 9-07 S pirit one) one) 00:00: - [facility] Lidocaine Lidocaine 2022-0 No 10mg Com 04-28 [facility] 00:00: - [facility] Kenalog Kenalog 2-0 No 40mg Common (Triamcinol (Triamcinol 9-07 S pirit one) one) 00:00: - [facility] Lidocaine Lidocaine 2-0 No 10mg Com 04-28 [facility] 00:00: - [facility] Kenalog Kenalog 2-0 No 40mg Common (Triamcinol (Triamcinol 9-07 S pirit one) one) 00:00: - [facility] Lidocaine Lidocaine 2022-0 No 10mg Com 04-28 [facility] 00:00: - [facility] Lidocaine Lidocaine 2022-0 No 10mg Com 04-28 [facility] 00:00: - [facility] Kenalog Kenalog 2-0 No 40mg Common (Triamcinol (Triamcinol 9-07 S pirit one) one) 00:00: - [facility] Kenalog Kenalog 2022-0 No 40mg Common (Triamcinol (Triamcinol 9-07 S pirit one) one) 00:00: - [facility] Lidocaine Lidocaine 2022-0 No 10mg Com 04-28 [facility] 00:00: - [facility] Kenalog Kenalog 2-0 No 40mg Common (Triamcinol (Triamcinol 9-07 S pirit one) one) 00:00: - [facility] Lidocaine Lidocaine 2-0 No 10mg Com 04-28 [facility] 00:00: - [facility] Kenalog Kenalog 2-0 No 40mg Common (Triamcinol (Triamcinol 9-07 S pirit one) one) 00:00: - [facility] Lidocaine Lidocaine 2-0 No 10mg Com 04-28 [facility] 00:00: - [facility] Kenalog Kenalog 2-0 No 40mg Common (Triamcinol (Triamcinol 9- S pirit one) one) 00:00: - [facility] Lidocaine Lidocaine 2-0 No 10mg Com 04-28 [facility] 00:00: - [facility] Kenalog Kenalog 2-0 No 40mg Common (Triamcinol (Triamcinol 9- S pirit one) one) 00:00: - [facility] Lidocaine Lidocaine 2-0 No 10mg Com 04-28 [facility] 00:00: - [facility] Lidocaine Lidocaine 2-0 No 10mg Com 04-28 [facility] 00:00: - [facility] Kenalog Kenalog 2-0 No 40mg Common (Triamcinol (Triamcinol 9-07 S pirit one) one) 00:00: - [facility] Hyalgan 20 Hyalgan 20 2021-0 No 20mg C ommon mg mg 02-24 [facility] 00:00: - [facility] Hyalgan 20 Hyalgan 20 2021-0 No 20mg C ommon mg mg 02-24 [facility] 00:00: - [facility] Hyalgan 20 Hyalgan 20 2021-0 No 20mg C ommon mg mg 02-24 [facility] 00:00: - [facility] Hyalgan 20 Hyalgan 20 2021-0 No 20mg C ommon mg mg 02-24 [facility] 00:00: - [facility] Hyalgan 20 Hyalgan 20 2-0 No 20mg C ommon mg mg 02-24 [facility] 00:00: - [facility] Hyalgan 20 Hyalgan 20 2-0 No 20mg C ommon mg mg 02-24 [facility] 00:00: - [facility] Hyalgan 20 Hyalgan 20 2-0 No 20mg C ommon mg mg 02-24 [facility] 00:00: - [facility] Hyalgan 20 Hyalgan 20 2-0 No 20mg C ommon mg mg 02-24 [facility] 00:00: - [facility] Hyalgan 20 Hyalgan 20 2021-0 No 20mg C ommon mg mg 02-24 [facility] 00:00: - [facility] Hyalgan 20 Hyalgan 20 2021-0 No 20mg C ommon mg mg 02-24 [facility] 00:00: - [facility] Hyalgan 20 Hyalgan 20 2021-0 No 20mg C ommon mg mg 02-24 [facility] 00:00: - [facility] Hyalgan 20 Hyalgan 20 2021-0 No 20mg C ommon mg mg 02-24 [facility] 00:00: - [facility] Hyalgan 20 Hyalgan 20 2021-0 No 20mg C ommon mg mg 02-24 [facility] 00:00: - [facility] Hyalgan 20 Hyalgan 20 2021-0 No 20mg C ommon mg mg 02-24 [facility] 00:00: - [facility] Hyalgan 20 Hyalgan 20 2021-0 No 20mg C ommon mg mg 02-24 [facility] 00:00: - [facility] Hyalgan 20 Hyalgan 20 2-0 No 20mg C ommon mg mg 02-24 [facility] 00:00: - [facility] Hyalgan 20 Hyalgan 20 2-0 No 20mg C ommon mg mg 02-24 [facility] 00:00: - [facility] Hyalgan 20 Hyalgan 20 2-0 No 20mg C ommon mg mg 02-24 [facility] 00:00: - [facility] Hyalgan 20 Hyalgan 20 2-0 No 20mg C ommon mg mg 02-24 [facility] 00:00: - [facility] Hyalgan 20 Hyalgan 20 2021-0 No 20mg C ommon mg mg 02-24 [facility] 00:00: - [facility] Hyalgan 20 Hyalgan 20 2-0 No 20mg C ommon mg mg 02-24 [facility] 00:00: - [facility] Hyalgan 20 Hyalgan 20 2021-0 No 20mg C ommon mg mg 02-24 [facility] 00:00: - [facility] Hyalgan 20 Hyalgan 20 2-0 No 20mg C ommon mg mg 02-24 [facility] 00:00: - [facility] Hyalgan 20 Hyalgan 20 2021-0 No 20mg C ommon mg mg 02-24 [facility] 00:00: - [facility] Hyalgan 20 Hyalgan 20 2-0 No 20mg C ommon mg mg 02-24 [facility] 00:00: - [facility] Hyalgan 20 Hyalgan 20 2021-0 No 20mg C ommon mg mg 02-24 [facility] 00:00: - [facility] Hyalgan 20 Hyalgan 20 2021-0 No 20mg C ommon mg mg 02-24 [facility] 00:00: - [facility] Hyalgan 20 Hyalgan 20 2021-0 No 20mg C ommon mg mg 02-24 [facility] 00:00: - [facility] Hyalgan 20 Hyalgan 20 2-0 No 20mg C ommon mg mg 02-24 [facility] 00:00: - [facility] Hyalgan 20 Hyalgan 20 2-0 No 20mg C ommon mg mg 02-24 [facility] 00:00: - [facility] Hyalgan 20 Hyalgan 20 2-0 No 20mg C ommon mg mg 02-24 [facility] 00:00: - [facility] Hyalgan Hyalgan 2-0 No 20mg Common 02-24 [facility] 00:00: - [facility] Hyalgan Hyalgan 2-0 No 20mg Common 02-24 [facility] 00:00: - [facility] Hyalgan Hyalgan 2-0 No 20mg Common 02-24 [facility] 00:00: - [facility] Hyalgan Hyalgan 2022-0 No 20mg Common 02-24 [facility] 00:00: - [facility] Hyalgan Hyalgan 2022-0 No 20mg Common 02-24 [facility] 00:00: - [facility] Hyalgan Hyalgan 2022-0 No 20mg Common 02-24 [facility] 00:00: - [facility] Hyalgan Hyalgan 2022-0 No 20mg Common 02-24 [facility] 00:00: - [facility] Hyalgan Hyalgan 2022-0 No 20mg Common 02-24 [facility] 00:00: - [facility] Hyalgan Hyalgan 2022-0 No 20mg Common 02-24 [facility] 00:00: - [facility] Hyalgan Hyalgan 2022-0 No 20mg Common 02-24 [facility] 00:00: - [facility] Hyalgan Hyalgan 2022-0 No 20mg Common 02-24 [facility] 00:00: - [facility] Hyalgan 20 Hyalgan 20 2-0 No 20mg C ommon mg mg 02-24 [facility] 00:00: - [facility] Hyalgan Hyalgan 2022-0 No 20mg Common 02-24 [facility] 00:00: - [facility] Hyalgan Hyalgan 2022-0 No 20mg Common 02-24 [facility] 00:00: - [facility] Hyalgan Hyalgan 2022-0 No 20mg Common 02-24 [facility] 00:00: - [facility] Hyalgan Hyalgan 2022-0 No 20mg Common 02-24 [facility] 00:00: - [facility] Hyalgan Hyalgan 2022-0 No 20mg Common 02-24 [facility] 00:00: - [facility] Hyalgan Hyalgan 2022-0 No 20mg Common 02-24 [facility] 00:00: - [facility] Hyalgan 20 Hyalgan 20 2022-0 No 20mg C ommon mg mg 02-24 [facility] 00:00: - [facility] Hyalgan 20 Hyalgan 20 2-0 No 20mg C ommon mg mg 02-24 [facility] 00:00: - [facility] Hyalgan 20 Hyalgan 20 2021-0 No 20mg C ommon mg mg 02-24 [facility] 00:00: - [facility] Hyalgan 20 Hyalgan 20 2021-0 No 20mg C ommon mg mg 02-15 [facility] 00:00: - [facility] Hyalgan 20 Hyalgan 20 2021-0 No 20mg C ommon mg mg 02-15 [facility] 00:00: - [facility] Hyalgan 20 Hyalgan 20 2021-0 No 20mg C ommon mg mg 02-15 [facility] 00:00: - [facility] Hyalgan 20 Hyalgan 20 2021-0 No 20mg C ommon mg mg 02-15 [facility] 00:00: - [facility] Hyalgan 20 Hyalgan 20 2021-0 No 20mg C ommon mg mg 02-15 [facility] 00:00: - [facility] Hyalgan 20 Hyalgan 20 2021-0 No 20mg C ommon mg mg 02-15 [facility] 00:00: - [facility] Hyalgan 20 Hyalgan 20 2021-0 No 20mg C ommon mg mg 02-15 [facility] 00:00: - [facility] Hyalgan 20 Hyalgan 20 2021-0 No 20mg C ommon mg mg 02-15 [facility] 00:00: - [facility] Hyalgan 20 Hyalgan 20 2021-0 No 20mg C ommon mg mg 02-15 [facility] 00:00: - [facility] Hyalgan 20 Hyalgan 20 2021-0 No 20mg C ommon mg mg 02-15 [facility] 00:00: - [facility] Hyalgan 20 Hyalgan 20 2021-0 No 20mg C ommon mg mg 02-15 [facility] 00:00: - [facility] Hyalgan 20 Hyalgan 20 2021-0 No 20mg C ommon mg mg 02-15 [facility] 00:00: - [facility] Hyalgan 20 Hyalgan 20 2021-0 No 20mg C ommon mg mg 02-15 [facility] 00:00: - [facility] Hyalgan 20 Hyalgan 20 2021-0 No 20mg C ommon mg mg 02-15 [facility] 00:00: - [facility] Hyalgan 20 Hyalgan 20 2021-0 No 20mg C ommon mg mg 02-15 [facility] 00:00: - [facility] Hyalgan 20 Hyalgan 20 2021-0 No 20mg C ommon mg mg 02-15 [facility] 00:00: - [facility] Hyalgan 20 Hyalgan 20 2021-0 No 20mg C ommon mg mg 02-15 [facility] 00:00: - [facility] Hyalgan 20 Hyalgan 20 2021-0 No 20mg C ommon mg mg 02-15 [facility] 00:00: - [facility] Hyalgan 20 Hyalgan 20 2021-0 No 20mg C ommon mg mg 02-15 [facility] 00:00: - [facility] Hyalgan 20 Hyalgan 20 2021-0 No 20mg C ommon mg mg 02-15 [facility] 00:00: - [facility] Hyalgan 20 Hyalgan 20 2021-0 No 20mg C ommon mg mg 02-15 [facility] 00:00: - [facility] Hyalgan 20 Hyalgan 20 2021-0 No 20mg C ommon mg mg 02-15 [facility] 00:00: - [facility] Hyalgan 20 Hyalgan 20 2021-0 No 20mg C ommon mg mg 02-15 [facility] 00:00: - [facility] Hyalgan 20 Hyalgan 20 2021-0 No 20mg C ommon mg mg 02-15 [facility] 00:00: - [facility] Hyalgan 20 Hyalgan 20 2021-0 No 20mg C ommon mg mg 02-15 [facility] 00:00: - [facility] Hyalgan 20 Hyalgan 20 2021-0 No 20mg C ommon mg mg 02-15 [facility] 00:00: - [facility] Hyalgan 20 Hyalgan 20 2021-0 No 20mg C ommon mg mg 02-15 [facility] 00:00: - [facility] Hyalgan 20 Hyalgan 20 2021-0 No 20mg C ommon mg mg 02-15 [facility] 00:00: - [facility] Hyalgan 20 Hyalgan 20 2022-0 No 20mg C ommon mg mg 02-15 [facility] 00:00: - [facility] Hyalgan 20 Hyalgan 20 2-0 No 20mg C ommon mg mg 02-15 [facility] 00:00: - [facility] Hyalgan 20 Hyalgan 20 2-0 No 20mg C ommon mg mg 02-15 [facility] 00:00: - [facility] Hyalgan Hyalgan 2-0 No 20mg Common 02-15 [facility] 00:00: - [facility] Hy[facility] Hyalgan 2-0 No 20mg Common 02-15 [facility] 00:00: - [facility] Hy[facility] Hyalgan 2-0 No 20mg Common 02-15 [facility] 00:00: - [facility] Hy[place] Hyalgan 2-0 No 20mg Common 02-15 [facility] 00:00: - [facility] Hy[facility] Hyalgan 2-0 No 20mg Common 02-15 [facility] 00:00: - [facility] Hy[facility] Hyalgan 2-0 No 20mg Common 02-15 [facility] 00:00: - [facility] Hy[place] Hyalgan 2-0 No 20mg Common 02-15 [facility] 00:00: - [facility] Hy[facility] Hyalgan 2-0 No 20mg Common 02-15 [facility] 00:00: - [facility] Hy[facility] Hyalgan 2-0 No 20mg Common 02-15 [facility] 00:00: - [facility] Hy[facility] Hyalgan 2-0 No 20mg Common 02-15 [facility] 00:00: - [facility] Hy[facility] Hyalgan 2-0 No 20mg Common 02-15 [facility] 00:00: - [facility] Hyalgan 20 Hyalgan 20 2-0 No 20mg C ommon mg mg 02-15 [facility] 00:00: - [facility] Hy[facility] Hyalgan 2022-0 No 20mg Common 02-15 [facility] 00:00: - [facility] Hyalgan 2022-0 No 20mg Common 02-15 [facility] 00:00: - [facility] Hyalgan 2022-0 No 20mg Common 02-15 [facility] 00:00: - [facility] Hy[facility] Hyalgan 2021-0 No 20mg Common 02-15 [facility] 00:00: - [facility] Hyalgan 2021-0 No 20mg Common 02-15 [facility] 00:00: - [facility] Hy[facility] Hyalgan 2021-0 No 20mg Common 02-15 [facility] 00:00: - [facility] Hyal[place] 20 Hyalgan 20 2021-0 No 20mg C ommon mg mg 02-15 [facility] 00:00: - [facility] Hyalgan 20 Hyalgan 20 2021-0 No 20mg C ommon mg mg 02-15 [facility] 00:00: - [facility] Hyal[facility] 20 Hyalgan 20 2021-0 No 20mg C ommon mg mg 02-15 [facility] 00:00: - [facility] Hyal[place] 20 Hyalgan 20 2021-0 No 20mg C ommon mg mg 02-15 [facility] 00:00: - [facility] Hyal[place] 20 Hyalgan 20 2021-0 No 20mg C ommon mg mg 02-15 [facility] 00:00: - [facility] Hyal[facility] 20 Hyalgan 20 2021-0 No 20mg C ommon mg mg 02-08 [facility] 00:00: - [facility] Hyal[facility] 20 Hyalgan 20 2021-0 No 20mg C ommon mg mg 02-08 [facility] 00:00: - [facility] Hyal[place] 20 Hyalgan 20 2021-0 No 20mg C ommon mg mg 02-08 [facility] 00:00: - [facility] Hyal[place] 20 Hyalgan 20 2021-0 No 20mg C ommon mg mg 02-08 [facility] 00:00: - [facility] Hyal[place] 20 Hyalgan 20 2021-0 No 20mg C ommon mg mg 02-08 [facility] 00:00: - [facility] Hyal[facility] 20 Hyalgan 20 2021-0 No 20mg C ommon mg mg 02-08 [facility] 00:00: - [facility] Hyal[facility] 20 Hyalgan 20 2021-0 No 20mg C ommon mg mg 6-20 [facility] 00:00: - [facility] Hyalgan 20 Hyalgan 20 2021-0 No 20mg C ommon mg mg -20 [facility] 00:00: - [facility] Hyalgan 20 Hyalgan 20 2021-0 No 20mg C ommon mg mg 20 [facility] 00:00: - [facility] Hyalgan 20 Hyalgan 20 2021-0 No 20mg C ommon mg mg 20 [facility] 00:00: - [facility] Hyal[place] 20 Hyalgan 20 2021-0 No 20mg C ommon mg mg 20 [facility] 00:00: - [facility] Hyal[place] 20 Hyalgan 20 2021-0 No 20mg C ommon mg mg 02-08 [facility] 00:00: - [facility] Hyal[facility] 20 Hyalgan 20 2021-0 No 20mg C ommon mg mg 20 [facility] 00:00: - [facility] Hyal[place] 20 Hyalgan 20 2021-0 No 20mg C ommon mg mg 02-08 [facility] 00:00: - [facility] Hyal[place] 20 Hyalgan 20 2021-0 No 20mg C ommon mg mg 02-08 [facility] 00:00: - [facility] Hyal[facility] 20 Hyalgan 20 2021-0 No 20mg C ommon mg mg 02-08 [facility] 00:00: - [facility] Hyal[place] 20 Hyalgan 20 2021-0 No 20mg C ommon mg mg 20 [facility] 00:00: - [facility] Hyalgan 20 Hyalgan 20 2021-0 No 20mg C ommon mg mg 20 [facility] 00:00: - [facility] Hyalgan 20 Hyalgan 20 2021-0 No 20mg C ommon mg mg 620 [facility] 00:00: - [facility] Hyalgan 20 Hyalgan 20 2021-0 No 20mg C ommon mg mg 20 [facility] 00:00: - [facility] Hyal[place] 20 Hyalgan 20 2021-0 No 20mg C ommon mg mg 6-20 [facility] 00:00: - [facility] Hyal[place] 20 Hyalgan 20 2021-0 No 20mg C ommon mg mg 6-20 [facility] 00:00: - [facility] Hyal[place] 20 Hyalgan 20 2021-0 No 20mg C ommon mg mg 6-20 [facility] 00:00: - [facility] Hyal[place] 20 Hyalgan 20 2-0 No 20mg C ommon mg mg 6-20 [facility] 00:00: - [facility] Hyal[place] 20 Hyalgan 20 2021-0 No 20mg C ommon mg mg 6-20 [facility] 00:00: - [facility] Hyal[place] 20 Hyalgan 20 2-0 No 20mg C ommon mg mg 6-20 [facility] 00:00: - [facility] Hyal[place] 20 Hyalgan 20 2021-0 No 20mg C ommon mg mg -20 [facility] 00:00: - [facility] Hyal[place] 20 Hyalgan 20 2021-0 No 20mg C ommon mg mg 6-20 [facility] 00:00: - [facility] Hyal[facility] 20 Hyalgan 20 2021-0 No 20mg C ommon mg mg 20 [facility] 00:00: - [facility] Hyal[place] 20 Hyalgan 20 2021-0 No 20mg C ommon mg mg 20 [facility] 00:00: - [facility] Hyal[place] 20 Hyalgan 20 2021-0 No 20mg C ommon mg mg 20 [facility] 00:00: - [facility] Hy[facility] Hyalgan 2-0 No 20mg Common 6-20 [facility] 00:00: - [facility] Hyalgan 2-0 No 20mg Common 6-20 [facility] 00:00: - [facility] Hyalgan 2-0 No 20mg Common 6-20 [facility] 00:00: - [facility] Hyalgan 2-0 No 20mg Common 6-20 [facility] 00:00: - [facility] Hyalgan 2-0 No 20mg Common 6-20 [facility] 00:00: - [facility] Hyalgan 2-0 No 20mg Common 6-20 [facility] 00:00: - [facility] Hyalgan 2-0 No 20mg Common 6-20 [facility] 00:00: - [facility] Hyalgan 2-0 No 20mg Common 6-20 [facility] 00:00: - [facility] Hyalgan 2-0 No 20mg Common 6-20 [facility] 00:00: - [facility] Hyalgan 2-0 No 20mg Common 6-20 [facility] 00:00: - [facility] 00 [facility] Hyal[facility] Hyalgan 2-0 No 20mg [facility] 6[facility]20 [facility] 00:00: - [facility] 00 [facility] Hyalgan 20 Hyalgan 20 2-0 No 20mg C ommon mg mg 6-20 [facility] 00:00: - [facility] 00 [facility] Hyalgan Hyalgan 2-0 No 20mg [facility] 6[facility]20 [facility] 00:00: - [facility] 00 [facility] Hyalgan Hyalgan 2-0 No 20mg [facility] 6[facility]20 [facility] 00:00: - [facility] Hyalgan Hyalgan 2-0 No 20mg [facility] 6[facility]20 [facility] 00:00: - [facility] 00 [facility] Hyal[facility] Hyalgan 2-0 No 20mg [facility] 6[facility]20 [facility] 00:00: - [facility] 00 [facility] Hyal[facility] Hyalgan 2-0 No 20mg [facility] 6[facility]20 [facility] 00:00: - [facility] 00 [facility] Hyal[facility] Hyalgan 2-0 No 20mg [facility] 6[facility]20 [facility] 00:00: - [facility] 00 [facility] Hyal[facility] 20 Hyalgan 20 2-0 No 20mg C ommon mg mg 6-20 [facility] 00:00: - [facility] 00 [facility] Hyal[facility] 20 Hyalgan 20 2-0 No 20mg C ommon mg mg 6-20 [facility] 00:00: - [facility] 00 [facility] Hyal[facility] 20 Hyalgan 20 2-0 No 20mg C ommon mg mg 6-20 [facility] 00:00: - [facility] 00 [facility] Hyal[facility] 20 Hyalgan 20 2-0 No 20mg C ommon mg mg 6-20 [facility] 00:00: - [facility] Hyalgan 20 Hyalgan 20 2-0 No 20mg C ommon mg mg 6-20 [facility] 00:[facility]: - [facility] Myrbetriq Myrbetriq 2022-0 2022- No 1{table QD [...] QD Myrbetriq 25 MG 25 MG 5-24 -19 t} 25 MG 00:00: 00:00 00 :00 Myrbetriq Myrbetriq 2022-0 2022- No 1{table QD Myrbetriq 25 MG 25 MG 5-24 -19 t} 25 MG 00:00: 00:00 00 :00 Myrbetriq Myrbetriq 2022-0 2022- No 1{table QD Myrbetriq 25 MG 25 MG 5-24 -19 t} 25 MG 00:00: 00:00 00 :00 [...] No 15{ml} Lactulose 10 GM/15ML 10 GM/15ML - 05-09 10 GM/15ML 00:00: 00:00 00 :00 Lactulose Lactulose 2022-0 2022- No 15{ml} Lactulose 10 GM/15ML 10 GM/15ML - 05-09 10 GM/15ML 00:00: 00:00 00 :00 Lidocaine Lidocaine 2022-0 No 10mg Com mon 4-18 [facility] 00:00: - [facility] Kenalog Kenalog 2-0 No 40mg Common (Triamcinol (Triamcinol 4-18 S pirit one) one) 00:00: - [facility] Lidocaine Lidocaine 2-0 No 10mg Com mon -18 [facility] 00:00: - [facility] Kenalog Kenalog 2-0 No 40mg Common (Triamcinol (Triamcinol 4-18 S pirit one) one) 00:00: - [facility] Lidocaine Lidocaine 2-0 No 10mg Com mon 4-18 [facility] 00:00: - [facility] Kenalog Kenalog 2-0 No 40mg Common (Triamcinol (Triamcinol 4-18 S pirit one) one) 00:00: - [facility] Lidocaine Lidocaine 2-0 No 10mg Com mon 4-18 [facility] 00:00: - [facility] Kenalog Kenalog 2-0 No 40mg Common (Triamcinol (Triamcinol 4-18 S pirit one) one) 00:00: - [facility] Lidocaine Lidocaine 2-0 No 10mg Com mon 4-18 [facility] 00:00: - [facility] Kenalog Kenalog 2-0 No 40mg Common (Triamcinol (Triamcinol 4-18 S pirit one) one) 00:00: - [facility] Lidocaine Lidocaine 2022-0 No 10mg Com mon 4-18 [facility] 00:00: - [facility] Kenalog Kenalog 2-0 No 40mg Common (Triamcinol (Triamcinol 4-18 S pirit one) one) 00:00: - [facility] Lidocaine Lidocaine 2-0 No 10mg Com mon 4-18 [facility] 00:00: - [facility] Kenalog Kenalog 2-0 No 40mg Common (Triamcinol (Triamcinol 4-18 S pirit one) one) 00:00: - [facility] Lidocaine Lidocaine 2-0 No 10mg Com mon 4-18 [facility] 00:00: - [facility] Kenalog Kenalog 2-0 No 40mg Common (Triamcinol (Triamcinol 4-18 S pirit one) one) 00:00: - [facility] Lidocaine Lidocaine 2-0 No 10mg Com mon -18 [facility] 00:00: - [facility] Lidocaine Lidocaine 2-0 No 10mg Com mon 4-18 [facility] 00:00: - [facility] Kenalog Kenalog 2-0 No 40mg Common (Triamcinol (Triamcinol 4-18 S pirit one) one) 00:00: - [facility] Kenalog Kenalog 2-0 No 40mg Common (Triamcinol (Triamcinol 4-18 S pirit one) one) 00:00: - [facility] Lidocaine Lidocaine 2-0 No 10mg Com mon 18 [facility] 00:00: - [facility] Kenalog Kenalog 2-0 No 40mg Common (Triamcinol (Triamcinol 4-18 S pirit one) one) 00:00: - [facility] Lidocaine Lidocaine 2-0 No 10mg Com mon 4-18 [facility] 00:00: - [facility] Kenalog Kenalog 2-0 No 40mg Common (Triamcinol (Triamcinol 4-18 S pirit one) one) 00:00: - [facility] Lidocaine Lidocaine 2-0 No 10mg Com mon 4-18 [facility] 00:00: - [facility] Kenalog Kenalog 2-0 No 40mg Common (Triamcinol (Triamcinol 4-18 S pirit one) one) 00:00: - [facility] Lidocaine Lidocaine 2-0 No 10mg Com mon 4-18 [facility] 00:00: - [facility] Kenalog Kenalog 2-0 No 40mg Common (Triamcinol (Triamcinol 4-18 S pirit one) one) 00:00: - [facility] Lidocaine Lidocaine 2022-0 No 10mg Com mon 4-18 [facility] 00:00: - [facility] Kenalog Kenalog 2-0 No 40mg Common (Triamcinol (Triamcinol 4-18 S pirit one) one) 00:00: - [facility] Lidocaine Lidocaine 2-0 No 10mg Com mon 4-18 [facility] 00:00: - [facility] Kenalog Kenalog 2-0 No 40mg Common (Triamcinol (Triamcinol 4-18 S pirit one) one) 00:00: - [facility] Lidocaine Lidocaine 2-0 No 10mg Com mon 4-18 [facility] 00:00: - [facility] Kenalog Kenalog 2-0 No 40mg Common (Triamcinol (Triamcinol 4-18 S pirit one) one) 00:00: - [facility] Lidocaine Lidocaine 2-0 No 10mg Com mon 4-18 [facility] 00:00: - [facility] Kenalog Kenalog 2-0 No 40mg Common (Triamcinol (Triamcinol 4-18 S pirit one) one) 00:00: - [facility] Lidocaine Lidocaine 2-0 No 10mg Com mon 4-18 [facility] 00:00: - [facility] Kenalog Kenalog 2-0 No 40mg Common (Triamcinol (Triamcinol 4-18 S pirit one) one) 00:00: - [facility] Lidocaine Lidocaine 2022-0 No 10mg Com mon 4-18 [facility] 00:00: - [facility] Lidocaine Lidocaine 2022-0 No 10mg Com mon 4-18 [facility] 00:00: - [facility] Kenalog Kenalog 2-0 No 40mg Common (Triamcinol (Triamcinol 4-18 S pirit one) one) 00:00: - [facility] Kenalog Kenalog 2-0 No 40mg Common (Triamcinol (Triamcinol 4-18 S pirit one) one) 00:00: - [facility] Lidocaine Lidocaine 2-0 No 10mg Com mon 4-18 [facility] 00:00: - [facility] Kenalog Kenalog 2-0 No 40mg Common (Triamcinol (Triamcinol 4-18 S pirit one) one) 00:00: - [facility] Lidocaine Lidocaine 2-0 No 10mg Com mon 4-18 [facility] 00:00: - [facility] Kenalog Kenalog 2-0 No 40mg Common (Triamcinol (Triamcinol 4-18 S pirit one) one) 00:00: - [facility] Lidocaine Lidocaine 2-0 No 10mg Com mon 4-18 [facility] 00:00: - [facility] Kenalog Kenalog 2-0 No 40mg Common (Triamcinol (Triamcinol 4-18 S pirit one) one) 00:00: - [facility] Lidocaine Lidocaine 2-0 No 10mg Com mon 4-18 [facility] 00:00: - [facility] Kenalog Kenalog 2-0 No 40mg Common (Triamcinol (Triamcinol 4-18 S pirit one) one) 00:00: - [facility] Lidocaine Lidocaine 2-0 No 10mg Com mon 4-18 [facility] 00:00: - [facility] Kenalog Kenalog 2-0 No 40mg Common (Triamcinol (Triamcinol 4-18 S pirit one) one) 00:00: - [facility] Lidocaine Lidocaine 2-0 No 10mg Com mon 4-18 [facility] 00:00: - [facility] Kenalog Kenalog 2-0 No 40mg Common (Triamcinol (Triamcinol 4-18 S pirit one) one) 00:00: - [facility] Lidocaine Lidocaine 2-0 No 10mg Com mon 4-18 [facility] 00:00: - [facility] Kenalog Kenalog 2-0 No 40mg Common (Triamcinol (Triamcinol 4-18 S pirit one) one) 00:00: - [facility] Lidocaine Lidocaine 2-0 No 10mg Com mon 4-18 [facility] 00:00: - [facility] Kenalog Kenalog 2-0 No 40mg Common (Triamcinol (Triamcinol 4-18 S pirit one) one) 00:00: - [facility] Lidocaine Lidocaine 2-0 No 10mg Com mon 4-18 [facility] 00:00: - [facility] Kenalog Kenalog 2-0 No 40mg Common (Triamcinol (Triamcinol 4-18 S pirit one) one) 00:00: - [facility] Lidocaine Lidocaine 2-0 No 10mg Com mon 4-18 [facility] 00:00: - [facility] Lidocaine Lidocaine 2-0 No 10mg Com mon 4-18 [facility] 00:00: - [facility] Kenalog Kenalog 2-0 No 40mg Common (Triamcinol (Triamcinol 4-18 S pirit one) one) 00:00: - [facility] Kenalog Kenalog 2-0 No 40mg Common (Triamcinol (Triamcinol 4-18 S pirit one) one) 00:00: - [facility] Lidocaine Lidocaine 2-0 No 10mg Com mon 4-18 [facility] 00:00: - [facility] Kenalog Kenalog 2-0 No 40mg Common (Triamcinol (Triamcinol 4-18 S pirit one) one) 00:00: - [facility] Lidocaine Lidocaine 2022-0 No 10mg Com mon 4-18 [facility] 00:00: - [facility] Kenalog Kenalog 2-0 No 40mg Common (Triamcinol (Triamcinol 4-18 S pirit one) one) 00:00: - [facility] Lidocaine Lidocaine 2-0 No 10mg Com mon 4-18 [facility] 00:00: - [facility] Kenalog Kenalog 2-0 No 40mg Common (Triamcinol (Triamcinol 4-18 S pirit one) one) 00:00: - [facility] Lidocaine Lidocaine 2022-0 No 10mg Com mon 4-18 [facility] 00:00: - [facility] Kenalog Kenalog 2-0 No 40mg Common (Triamcinol (Triamcinol 4-18 S pirit one) one) 00:00: - [facility] Lidocaine Lidocaine 2-0 No 10mg Com mon 4-18 [facility] 00:00: - [facility] Kenalog Kenalog 2-0 No 40mg Common (Triamcinol (Triamcinol 4-18 S pirit one) one) 00:00: - [facility] Lidocaine Lidocaine 2-0 No 10mg Com mon 4-18 [facility] 00:00: - [facility] Kenalog Kenalog 2-0 No 40mg Common (Triamcinol (Triamcinol 4-18 S pirit one) one) 00:00: - [facility] Lidocaine Lidocaine 2-0 No 10mg Com mon 4-18 [facility] 00:00: - [facility] Kenalog Kenalog 2-0 No 40mg Common (Triamcinol (Triamcinol 4-18 S pirit one) one) 00:00: - [facility] Lidocaine Lidocaine 2-0 No 10mg Com mon 4-18 [facility] 00:00: - [facility] Kenalog Kenalog 2-0 No 40mg Common (Triamcinol (Triamcinol 4-18 S pirit one) one) 00:00: - [facility] Lidocaine Lidocaine 2022-0 No 10mg Com mon 4-18 [facility] 00:00: - [facility] Kenalog Kenalog 2022-0 No 40mg Common (Triamcinol (Triamcinol 4-18 S pirit one) one) 00:00: - [facility] Lidocaine Lidocaine 2-0 No 10mg Com mon 4-18 [facility] 00:00: - [facility] Kenalog Kenalog 2-0 No 40mg Common (Triamcinol (Triamcinol 4-18 S pirit one) one) 00:00: - [facility] Lidocaine Lidocaine 2-0 No 10mg Com mon 4-18 [facility] 00:00: - [facility] Lidocaine Lidocaine 2-0 No 10mg Com mon 4-18 [facility] 00:00: - [facility] Kenalog Kenalog 2-0 No 40mg Common (Triamcinol (Triamcinol 4-18 S pirit one) one) 00:00: - [facility] Kenalog Kenalog 2-0 No 40mg Common (Triamcinol (Triamcinol 4-18 S pirit one) one) 00:00: - [facility] Lidocaine Lidocaine 2-0 No 10mg Com mon 4-18 [facility] 00:00: - [facility] Kenalog Kenalog 2-0 No 40mg Common (Triamcinol (Triamcinol 4-18 S pirit one) one) 00:00: - [facility] Lidocaine Lidocaine 2-0 No 10mg Com mon 4-18 [facility] 00:00: - [facility] Kenalog Kenalog 2-0 No 40mg Common (Triamcinol (Triamcinol 4-18 S pirit one) one) 00:00: - [facility] Lidocaine Lidocaine 2-0 No 10mg Com mon 4-18 [facility] 00:00: - [facility] Kenalog Kenalog 2-0 No 40mg Common (Triamcinol (Triamcinol 4-18 S pirit one) one) 00:00: - [facility] Lidocaine Lidocaine 2022-0 No 10mg Com mon 4-18 [facility] 00:00: - [facility] Kenalog Kenalog 2-0 No 40mg Common (Triamcinol (Triamcinol 4-18 S pirit one) one) 00:00: - [facility] Lidocaine Lidocaine 2-0 No 10mg Com mon 4-18 [facility] 00:00: - [facility] Kenalog Kenalog 2-0 No 40mg Common (Triamcinol (Triamcinol 4-18 S pirit one) one) 00:00: - [facility] Lidocaine Lidocaine 2-0 No 10mg Com mon 4-18 [facility] 00:00: - [facility] Kenalog Kenalog 2-0 No 40mg Common (Triamcinol (Triamcinol 4-18 S pirit one) one) 00:00: - [facility] Lidocaine Lidocaine 2-0 No 10mg Com mon -18 [facility] 00:00: - [facility] Kenalog Kenalog 2-0 No 40mg Common (Triamcinol (Triamcinol 4-18 S pirit one) one) 00:00: - [facility] Lidocaine Lidocaine 2-0 No 10mg Com mon 18 [facility] 00:00: - [facility] Kenalog Kenalog 2-0 No 40mg Common (Triamcinol (Triamcinol 4-18 S pirit one) one) 00:00: - [facility] Lidocaine Lidocaine 2-0 No 10mg Com mon 418 [facility] 00:00: - [facility] Kenalog Kenalog 2-0 No 40mg Common (Triamcinol (Triamcinol 4-18 S pirit one) one) 00:00: - [facility] Lidocaine Lidocaine 2-0 No 10mg Com mon 4-18 [facility] 00:00: - [facility] Kenalog Kenalog 2-0 No 40mg Common (Triamcinol (Triamcinol 4-18 S pirit one) one) 00:00: - [facility] Lidocaine Lidocaine 2022-0 No 10mg Com mon 4-18 [facility] 00:00: - [facility] Kenalog Kenalog 2022-0 No 40mg Common (Triamcinol (Triamcinol 4-18 S pirit one) one) 00:00: - [facility] Lidocaine Lidocaine 2-0 No 10mg Com mon 4-18 [facility] 00:00: - [facility] Kenalog Kenalog 2-0 No 40mg Common (Triamcinol (Triamcinol 4-18 S pirit one) one) 00:00: - [facility] Lidocaine Lidocaine 2-0 No 10mg Com mon 4-18 [facility] 00:00: - [facility] Kenalog Kenalog 2-0 No 40mg Common (Triamcinol (Triamcinol 4-18 S pirit one) one) 00:00: - [facility] Myrbetriq Myrbetriq 2021-0 2022- No 1{table QD Myrbetriq 25 MG 25 MG 3-25 -21 t} 25 MG 00:00: 00:00 00 :00 Myrbetriq Myrbetriq 2-0 2022- No 1{table QD Myrbetriq 25 MG 25 MG 3-25 -21 t} 25 MG 00:00: 00:00 00 :00 Myrbetriq Myrbetriq 2-0 2022- No 1{table QD Myrbetriq 25 MG 25 MG 3-25 09-21 t} 25 MG 00:00: 00:00 00 :00 Myrbetriq Myrbetriq 2-0 2022- No 1{table QD Myrbetriq 25 MG 25 MG 3-25 09-21 t} 25 MG 00:00: 00:00 00 :00 Myrbetriq Myrbetriq 2-0 2022- No 1{table QD Myrbetriq 25 MG 25 MG 3-25 09-21 t} 25 MG 00:00: 00:00 00 :00 Myrbetriq Myrbetriq 2022-0 2022- No 1{table QD Myrbetriq 25 MG 25 MG 3-25 09-21 t} 25 MG 00:00: 00:00 00 :00 Myrbetriq Myrbetriq 2022-0 2022- No 1{table QD Myrbetriq 25 MG 25 MG 3-25 09-21 t} 25 MG 00:00: 00:00 00 :00 Myrbetriq Myrbetriq 2022-0 2022- No 1{table QD Myrbetriq 25 MG 25 MG 3-25 - t} 25 MG 00:00: 00:00 00 :00 Myrbetriq Myrbetriq 2022-0 2022- No 1{table QD Myrbetriq 25 MG 25 MG 3-25 - t} 25 MG 00:00: 00:00 00 :00 Myrbetriq Myrbetriq 2022-0 2022- No 1{table QD Myrbetriq 25 MG 25 MG 3-25 05-12 t} 25 MG 00:00: 00:00 00 :00 Myrbetriq Myrbetriq 2022-0 2022- No 1{table QD Myrbetriq 25 MG 25 MG 3-25 05-12 t} 25 MG 00:00: 00:00 00 :00 Myrbetriq Myrbetriq 2022-0 2022- No 1{table QD Myrbetriq 25 MG 25 MG 3-25 05-12 t} 25 MG 00:00: 00:00 00 :00 Myrbetriq Myrbetriq 2022-0 2022- No 1{table QD Myrbetriq 25 MG 25 MG 3-25 05-12 t} 25 MG 00:00: 00:00 00 :00 Myrbetriq Myrbetriq 2022-0 2022- No 1{table QD Myrbetriq 25 MG 25 MG 3-25 05-12 t} 25 MG 00:00: 00:00 00 :00 Myrbetriq Myrbetriq 2022-0 2022- No 1{table QD Myrbetriq 25 MG 25 MG 3-25 05-12 t} 25 MG 00:00: 00:00 00 :00 Myrbetriq Myrbetriq 2022-0 2022- No 1{table QD Myrbetriq 25 MG 25 MG 3-25 - t} 25 MG 00:00: 00:00 00 :00 Myrbetriq Myrbetriq 2022-0 2022- No 1{table QD Myrbetriq 25 MG 25 MG 3-25 05-12 t} 25 MG 00:00: 00:00 00 :00 Myrbetriq Myrbetriq 2022-0 2022- No 1{table QD Myrbetriq 25 MG 25 MG 3-25 05-12 t} 25 MG 00:00: 00:00 00 :00 Cipro 500 Cipro 500 2021-0 2022- No 1{table BID Cipro 500 MG MG 09-04 t} MG 00:00: 00:00 00 :00 Cipro 500 Cipro 500 2021-0 2022- No 1{table BID MG MG 09-04 t} 00:00: 00:00 00 :00 Cipro 500 Cipro 500 2021-0 2022- No 1{table BID Cipro 500 MG MG 09-04 t} MG 00:00: 00:00 00 :00 Cipro 500 Cipro 500 2021-0 2022- No 1{table BID Cipro 500 MG [...] 00:00: eded} 00 Fexmid 7.5 Fexmid 7.5 2019 No 1{table TID Fexmid 7.5 MG MG 8-05 t_as_ne MG 00:00: eded} Fexmid 7.5 Fexmid 7.5 No 1{table TID Fexmid 7.5 MG MG 8-05 t_as_ne MG 00:00: eded} Fexmid 7.5 Fexmid 7.5 No 1{table TID Fexmid 7.5 MG MG 8-05 t_as_ne MG 00:00: eded} 00 predniSONE predniSONE No 1{table QD predniSONE 10 MG 10 MG t} 10 MG Vitamin D3 Vitamin D3 No Vitamin D3 [id number] UNIT/GM UNIT/GM UNIT/GM CVS Aspirin CVS Aspirin [...] 20 MG 20 MG Magnesium 20 MG [place] No 1{table QD [place] Thyroid 90 Thyroid 90 t_on_an Thyroid 90 MG MG _empty_ MG stomach } methylPREDN methylPREDN No methylPRED ISolone 4 ISolone 4 NISolone 4 MG MG MG predniSONE predniSONE No 1{table QD predniSONE 10 MG 10 MG t} 10 MG CoQ10 CoQ10 No CoQ10 Vitamin D3 Vitamin D3 No Vitamin D3 [id number] UNIT/GM UNIT/GM UNIT/GM CVS Aspirin CVS Aspirin [...] 20 MG 20 MG Magnesium 20 MG [place] No 1{table QD [place] Thyroid 90 Thyroid 90 t_on_an Thyroid 90 MG MG _empty_ MG stomach } [place] No 1{table QD [place] Thyroid 90 Thyroid 90 t_on_an Thyroid 90 MG MG _empty_ MG stomach } predniSONE predniSONE No 1{table QD predniSONE 10 MG 10 MG t} 10 MG Vitamin D3 Vitamin D3 No Vitamin D3 2007721 [id number] UNIT/GM UNIT/GM UNIT/GM CVS Aspirin CVS Aspirin [...] 20 MG 20 MG Magnesium 20 MG [place] No 1{table QD [place] Thyroid 90 Thyroid 90 t_on_an Thyroid 90 [...] 10 MG 10 MG t} 10 MG [place] No 1{table QD [place] Thyroid 90 Thyroid 90 t_on_an Thyroid 90 MG MG _empty_ MG stomach } CoQ10 CoQ10 No CoQ10 Albuterol Albuterol No Albuterol Sulfate HFA Sulfate HFA Sulfate 108 (90 108 (90 HFA 108 Base) Base) (90 Base) MCG/ACT MCG/ACT MCG/ACT Flonase Flonase No Flonase Vitamin D3 Vitamin D3 No Vitamin D3 1009500 [id number] UNIT/GM UNIT/GM UNIT/GM levoFLOXaci levoFLOXaci No levoFLOXac [...] 10 MG 10 MG t} 10 MG [place] No 1{table QD [place] Thyroid 90 Thyroid 90 t_on_an Thyroid 90 MG MG _empty_ MG stomach } CoQ10 CoQ10 No CoQ10 Albuterol Albuterol No Albuterol Sulfate HFA Sulfate HFA Sulfate 108 (90 108 (90 HFA 108 Base) Base) (90 Base) MCG/ACT MCG/ACT MCG/ACT Flonase Flonase No Flonase Vitamin D3 Vitamin D3 No Vitamin D3 [id number] UNIT/GM UNIT/GM UNIT/GM levoFLOXaci levoFLOXaci No levoFLOXac [...] Vitamin D3 Vitamin D3 No Vitamin D3 6243184 [id number] UNIT/GM UNIT/GM UNIT/GM Ventolin Ventolin No Ventolin [...] Bisulfate 75 MG Tumersaid Tumersaid No Tumersaid [place] No 1{table QD [place] Thyroid 90 Thyroid 90 t_on_an Thyroid 90 [...] Vitamin D3 Vitamin D3 No Vitamin D3 7714793 [id number] UNIT/GM UNIT/GM UNIT/GM Clopidogrel Clopidogrel No 1{table QD Clopidogre Bisulfate Bisulfate t} l 75 MG 75 MG Bisulfate 75 MG [facility] Tumersaid No Tumersaid methylPREDN methylPREDN No methylPRED ISolone 4 ISolone 4 NISolone 4 MG MG MG CoQ10 CoQ10 No CoQ10 levoFLOXaci levoFLOXaci No levoFLOXac n 500 MG n 500 MG in 500 MG [place] No 1{table QD [place] Thyroid 90 Thyroid 90 t_on_an Thyroid 90 [...] Ventolin Ventolin No Ventolin HFA HFA HFA [place] No 1{table QD [place] Thyroid 90 Thyroid 90 t_on_an Thyroid 90 MG MG _empty_ MG stomach } Flonase Flonase No Flonase Bisoprolol- Bisoprolol- No Bisoprolol hydroCHLORO hydroCHLORO -hydroCHLO thiazide thiazide ROthiazide 2.5-6.25 MG 2.5-6.25 MG 2.5-6.25 MG Tumersaid Tumersaid No Tumersaid Bisoprolol Bisoprolol No QD Bisoprolol Fumarate 5 Fumarate 5 Fumarate 5 MG MG MG Vitamin D3 Vitamin D3 No Vitamin D3 4118821 [id number] UNIT/GM UNIT/GM UNIT/GM Albuterol Albuterol No Albuterol [...] 81 MG Adult Low Dose 81 MG [place] No 1{table QD [place] Thyroid 90 Thyroid 90 t_on_an Thyroid 90 [...] Vitamin D3 Vitamin D3 No Vitamin D3 [id number] [id number] UNIT/GM UNIT/GM UNIT/GM levoFLOXaci levoFLOXaci No levoFLOXac [...] 81 MG Adult Low Dose 81 MG [place] No 1{table QD [place] Thyroid 90 Thyroid 90 t_on_an Thyroid 90 [...] Vitamin D3 Vitamin D3 No Vitamin D3 1320542 [id number] UNIT/GM UNIT/GM UNIT/GM levoFLOXaci levoFLOXaci No levoFLOXac [...] Ventolin Ventolin No Ventolin HFA HFA HFA [place] No 1{table QD [place] Thyroid 90 Thyroid 90 t_on_an Thyroid 90 [...] Ventolin Ventolin No Ventolin HFA HFA HFA [place] No 1{table QD [place] Thyroid 90 Thyroid 90 t_on_an Thyroid 90 [...] Vitamin D3 Vitamin D3 No Vitamin D3 1248231 [id number] UNIT/GM UNIT/GM UNIT/GM Flonase Flonase No Flonase [...] MG 2.5-6.25 MG Tumersaid Tumersaid No Tumersaid [place] No 1{table QD [place] Thyroid 90 Thyroid 90 t_on_an Thyroid 90 MG MG _empty_ MG stomach } Clopidogrel Clopidogrel No 1{table QD Clopidogre Bisulfate Bisulfate t} l 75 MG 75 MG Bisulfate 75 MG [place] Tumersaid No Tumersaid Cholesterol Cholesterol No Cholestero l Zinc 25 MG Zinc 25 MG No 1{table QD Zinc 25 MG t} Vitamin D3 Vitamin D3 No Vitamin D3 5162795 [id number] UNIT/GM UNIT/GM UNIT/GM Bisoprolol Bisoprolol No QD [...] Vitamin D3 Vitamin D3 No Vitamin D3 1954366 [id number] UNIT/GM UNIT/GM UNIT/GM Cyclobenzap Cyclobenzap No 1{table [...] Vitamin D3 Vitamin D3 No Vitamin D3 0897429 [id number] UNIT/GM UNIT/GM UNIT/GM Flonase Flonase No Flonase [...] 20 MG 20 MG Magnesium 20 MG [place] No 1{table QD [place] Thyroid 90 Thyroid 90 t_on_an Thyroid 90 [...] Vitamin D3 Vitamin D3 No Vitamin D3 0846940 [id number] UNIT/GM UNIT/GM UNIT/GM Flonase Flonase No Flonase [...] 20 MG 20 MG Magnesium 20 MG [facility] No 1{table QD [place] Thyroid 90 Thyroid 90 t_on_an Thyroid 90 MG MG _empty_ MG stomach } Testosteron Testosteron No Testostero e Cypionate e Cypionate ne 200 MG/ML 200 MG/ML Cypionate 200 MG/ML levoFLOXaci levoFLOXaci No levoFLOXac n 500 MG n 500 MG in 500 MG [facility] No 1{table QD [place] Thyroid 90 Thyroid 90 t_on_an Thyroid 90 MG MG _empty_ MG stomach } Vitamin D3 Vitamin D3 No Vitamin D3 4620011 [id number] UNIT/GM UNIT/GM UNIT/GM Esomeprazol Esomeprazol No Esomeprazo [...] Vitamin D3 Vitamin D3 No Vitamin D3 0325220 [id number] UNIT/GM UNIT/GM UNIT/GM CVS Aspirin CVS Aspirin [...] Fumarate 5 Fumarate 5 MG MG MG [place] No 1{table QD [place] Thyroid 90 Thyroid 90 t_on_an Thyroid 90 [...] Fumarate 5 Fumarate 5 MG MG MG [place] No 1{table QD [place] Thyroid 90 Thyroid 90 t_on_an Thyroid 90 [...] Vitamin D3 Vitamin D3 No Vitamin D3 4308668 [id number] UNIT/GM UNIT/GM UNIT/GM CoQ10 CoQ10 No CoQ10 [...] Magnesium 20 MG Tum[place] Tumersaid No Tumersaid [place] No 1{table QD [place] Thyroid 90 Thyroid 90 t_on_an Thyroid 90 [...] Vitamin D3 Vitamin D3 No Vitamin D3 6155160 [id number] UNIT/GM UNIT/GM UNIT/GM methylPREDN methylPREDN No methylPRED [...] Magnesium 20 MG Tumersaid Tumersaid No Tumersaid [place] No 1{table QD [place] Thyroid 90 Thyroid 90 t_on_an Thyroid 90 [...] Vitamin D3 Vitamin D3 No Vitamin D3 [id number] UNIT/GM UNIT/GM UNIT/GM methylPREDN methylPREDN No methylPRED [...] Magnesium 20 MG Tumersaid Tumersaid No Tumersaid [place] No 1{table QD [place] Thyroid 90 Thyroid 90 t_on_an Thyroid 90 [...] Vitamin D3 Vitamin D3 No Vitamin D3 [id number] UNIT/GM UNIT/GM UNIT/GM methylPREDN methylPREDN No methylPRED ISolone 4 ISolone 4 NISolone 4 MG MG MG prednisoLON prednisoLON No QD prednisoLO E 5 MG E 5 MG NE 5 MG [place] No 1{table QD [place] Thyroid 90 Thyroid 90 t_on_an Thyroid 90 [...] Magnesium 20 MG Tumersaid Tumersaid No Tumersaid [place] No 1{table QD [place] Thyroid 90 Thyroid 90 t_on_an Thyroid 90 MG MG _empty_ MG stomach } Albuterol Albuterol No Albuterol Sulfate HFA Sulfate HFA Sulfate 108 (90 108 (90 HFA 108 Base) Base) (90 Base) MCG/ACT MCG/ACT MCG/ACT Vitamin D3 Vitamin D3 No Vitamin D3 [id number] UNIT/GM UNIT/GM UNIT/GM prednisoLON prednisoLON No QD [...] 25 MG t} Tumersaid Tumersaid No Tumersaid [place] No 1{table QD [place] Thyroid 90 Thyroid 90 t_on_an Thyroid 90 MG MG _empty_ MG stomach } Albuterol Albuterol No Albuterol Sulfate HFA Sulfate HFA Sulfate 108 (90 108 (90 HFA 108 Base) Base) (90 Base) MCG/ACT MCG/ACT MCG/ACT Vitamin D3 Vitamin D3 No Vitamin D3 [id number] UNIT/GM UNIT/GM UNIT/GM prednisoLON prednisoLON No QD [...] Vitamin D3 Vitamin D3 No Vitamin D3 [id number] UNIT/GM UNIT/GM UNIT/GM [place] No 1{table QD [place] Thyroid 90 Thyroid 90 t_on_an Thyroid 90 [...] Vitamin D3 Vitamin D3 No Vitamin D3 [id number] UNIT/GM UNIT/GM UNIT/GM predniSONE predniSONE No 1{table [...] Vitamin D3 Vitamin D3 No Vitamin D3 [id number] [id number] UNIT/GM UNIT/GM UNIT/GM Bisoprolol- Bisoprolol- No Bisoprolol hydroCHLORO hydroCHLORO -hydroCHLO thiazide thiazide ROthiazide 2.5-6.25 MG 2.5-6.25 MG 2.5-6.25 MG Esomeprazol Esomeprazol No Esomeprazo e Magnesium e Magnesium le 20 MG 20 MG Magnesium 20 MG Ventolin Ventolin No Ventolin HFA HFA HFA Zinc 25 MG Zinc 25 MG No 1{table QD Zinc 25 MG t} [place] No 1{table QD [place] Thyroid 90 Thyroid 90 t_on_an Thyroid 90 [...] Vitamin D3 Vitamin D3 No Vitamin D3 [id number] UNIT/GM UNIT/GM UNIT/GM Bisoprolol- Bisoprolol- No Bisoprolol hydroCHLORO hydroCHLORO -hydroCHLO thiazide thiazide ROthiazide 2.5-6.25 MG 2.5-6.25 MG 2.5-6.25 MG Esomeprazol Esomeprazol No Esomeprazo e Magnesium e Magnesium le 20 MG 20 MG Magnesium 20 MG Ventolin Ventolin No Ventolin HFA HFA HFA Zinc 25 MG Zinc 25 MG No 1{table QD Zinc 25 MG t} [place] No 1{table QD [place] Thyroid 90 Thyroid 90 t_on_an Thyroid 90 [...] Vitamin D3 Vitamin D3 No Vitamin D3 [id number] UNIT/GM UNIT/GM UNIT/GM Bisoprolol- Bisoprolol- No Bisoprolol hydroCHLORO hydroCHLORO -hydroCHLO thiazide thiazide ROthiazide 2.5-6.25 MG 2.5-6.25 MG 2.5-6.25 MG Esomeprazol Esomeprazol No Esomeprazo e Magnesium e Magnesium le 20 MG 20 MG Magnesium 20 MG Ventolin Ventolin No Ventolin HFA HFA HFA Zinc 25 MG Zinc 25 MG No 1{table QD Zinc 25 MG t} [place] No 1{table QD [place] Thyroid 90 Thyroid 90 t_on_an Thyroid 90 [...] Fumarate 5 Fumarate 5 MG MG MG Albuterol Albuterol No Albuterol Sulfate HFA Sulfate HFA Sulfate 108 (90 108 (90 HFA 108 Base) Base) (90 Base) MCG/ACT MCG/ACT MCG/ACT Flonase Flonase No Flonase [place] No 1{table QD [place] Thyroid 90 Thyroid 90 t_on_an Thyroid 90 MG MG _empty_ MG stomach } Esomeprazol Esomeprazol No Esomeprazo e Magnesium e Magnesium le 20 MG 20 MG Magnesium 20 MG Donepezil Donepezil No 1{table QD Donepezil HCl 5 MG HCl 5 MG t_at_be HCl 5 MG dtime} Clopidogrel Clopidogrel No 1{table QD Clopidogre Bisulfate Bisulfate t} l 75 MG 75 MG Bisulfate 75 MG Vitamin C Vitamin C No Vitamin C Myrbetriq Myrbetriq No 1{table QD Myrbetriq 50 MG 50 MG t} 50 MG predniSONE predniSONE No 1{table QD predniSONE 10 MG 10 MG t} 10 MG Tamsulosin Tamsulosin No 1{capsu QD Tamsulosin HCl 0.4 MG HCl 0.4 MG le} HCl 0.4 MG Bisoprolol Bisoprolol No QD Bisoprolol Fumarate 5 Fumarate 5 Fumarate 5 MG MG MG Albuterol Albuterol No Albuterol Sulfate HFA Sulfate HFA Sulfate 108 (90 108 (90 HFA 108 Base) Base) (90 Base) MCG/ACT MCG/ACT MCG/ACT Flonase Flonase No Flonase [place] No 1{table QD [place] Thyroid 90 Thyroid 90 t_on_an Thyroid 90 MG MG _empty_ MG stomach } Esomeprazol Esomeprazol No Esomeprazo e Magnesium e Magnesium le 20 MG 20 MG Magnesium 20 MG Donepezil Donepezil No 1{table QD Donepezil HCl 5 MG HCl 5 MG t_at_be HCl 5 MG dtime} Clopidogrel Clopidogrel No 1{table QD Clopidogre Bisulfate Bisulfate t} l 75 MG 75 MG Bisulfate 75 MG Vitamin C Vitamin C No Vitamin C Myrbetriq Myrbetriq No 1{table QD Myrbetriq 50 MG 50 MG t} 50 MG predniSONE predniSONE No 1{table QD predniSONE 10 MG 10 MG t} 10 MG Tamsulosin Tamsulosin No 1{capsu QD Tamsulosin HCl 0.4 MG HCl 0.4 MG le} HCl 0.4 MG Bisoprolol Bisoprolol No QD Bisoprolol Fumarate 5 Fumarate 5 Fumarate 5 MG MG MG Esomeprazol Esomeprazol No Esomeprazo e Magnesium e Magnesium le 20 MG 20 MG Magnesium 20 MG Myrbetriq Myrbetriq No 1{table QD Myrbetriq 50 MG 50 MG t} 50 MG Benzonatate Benzonatate No 1{capsu TID Benzonatat 100 MG 100 MG le_as_n e 100 MG eeded} Flonase Flonase No Flonase Vitamin C Vitamin C No Vitamin C Eliquis 5 Eliquis 5 No 1{table BID Eliquis 5 MG MG t} MG Albuterol Albuterol No Albuterol Sulfate HFA Sulfate HFA Sulfate 108 (90 108 (90 HFA 108 Base) Base) (90 Base) MCG/ACT MCG/ACT MCG/ACT Eliquis 5 Eliquis 5 No 1{table BID Eliquis 5 MG MG t} MG [place] No 1{table QD [place] Thyroid 60 Thyroid 60 t_on_an Thyroid 60 MG MG _empty_ MG stomach } predniSONE predniSONE No 1{table QD predniSONE 10 MG 10 MG t} 10 MG Tamsulosin Tamsulosin No 1{capsu QD Tamsulosin HCl 0.4 MG HCl 0.4 MG le} HCl 0.4 MG [place] No 1{table QD [place] Thyroid 90 Thyroid 90 t_on_an Thyroid 90 MG MG _empty_ MG stomach } Flonase Flonase No Flonase Esomeprazol Esomeprazol No Esomeprazo e Magnesium e Magnesium le 20 MG 20 MG Magnesium 20 MG Myrbetriq Myrbetriq No 1{table QD Myrbetriq 50 MG 50 MG t} 50 MG Benzonatate Benzonatate No 1{capsu TID Benzonatat 100 MG 100 MG le_as_n e 100 MG eeded} Flonase Flonase No Flonase Esomeprazol Esomeprazol No Esomeprazo e Magnesium e Magnesium le 20 MG 20 MG Magnesium 20 MG Vitamin C Vitamin C No Vitamin C Eliquis 5 Eliquis 5 No 1{table BID Eliquis 5 MG MG t} MG Albuterol Albuterol No Albuterol Sulfate HFA Sulfate HFA Sulfate 108 (90 108 (90 HFA 108 Base) Base) (90 Base) MCG/ACT MCG/ACT MCG/ACT Eliquis 5 Eliquis 5 No 1{table BID Eliquis 5 MG MG t} MG [place] No 1{table QD [place] Thyroid 60 Thyroid 60 t_on_an Thyroid 60 MG MG _empty_ MG stomach } predniSONE predniSONE No 1{table QD predniSONE 10 MG 10 MG t} 10 MG Tamsulosin Tamsulosin No 1{capsu QD Tamsulosin HCl 0.4 MG HCl 0.4 MG le} HCl 0.4 MG Testosteron Testosteron No Testostero e Cypionate e Cypionate ne 200 MG/ML 200 MG/ML Cypionate 200 MG/ML Tumersaid Tumersaid No Tumersaid Esomeprazol Esomeprazol No Esomeprazo e Magnesium e Magnesium le 20 MG 20 MG Magnesium 20 MG Myrbetriq Myrbetriq No 1{table QD Myrbetriq 50 MG 50 MG t} 50 MG Benzonatate Benzonatate No 1{capsu TID Benzonatat 100 MG 100 MG le_as_n e 100 MG eeded} Bisoprolol Bisoprolol No QD Bisoprolol Fumarate 5 Fumarate 5 Fumarate 5 MG MG MG Flonase Flonase No Flonase Vitamin C Vitamin C No Vitamin C Eliquis 5 Eliquis 5 No 1{table BID Eliquis 5 MG MG t} MG Albuterol Albuterol No Albuterol Sulfate HFA Sulfate HFA Sulfate 108 (90 108 (90 HFA 108 Base) Base) (90 Base) MCG/ACT MCG/ACT MCG/ACT Eliquis 5 Eliquis 5 No 1{table BID Eliquis 5 MG MG t} MG [place] No 1{table QD [place] Thyroid 60 Thyroid 60 t_on_an Thyroid 60 MG MG _empty_ MG stomach } predniSONE predniSONE No 1{table QD predniSONE 10 MG 10 MG t} 10 MG Tamsulosin Tamsulosin No 1{capsu QD Tamsulosin HCl 0.4 MG HCl 0.4 MG le} HCl 0.4 MG Vitamin C Vitamin C No Vitamin C Ventolin Ventolin No Ventolin HFA HFA HFA Esomeprazol Esomeprazol No Esomeprazo e Magnesium e Magnesium le 20 MG 20 MG Magnesium 20 MG Myrbetriq Myrbetriq No 1{table QD Myrbetriq 50 MG 50 MG t} 50 MG Benzonatate Benzonatate No 1{capsu TID Benzonatat 100 MG 100 MG le_as_n e 100 MG eeded} Flonase Flonase No Flonase Vitamin C Vitamin C No Vitamin C Bisoprolol- Bisoprolol- No Bisoprolol hydroCHLORO hydroCHLORO -hydroCHLO thiazide thiazide ROthiazide 2.5-6.25 MG 2.5-6.25 MG 2.5-6.25 MG Eliquis 5 Eliquis 5 No 1{table BID Eliquis 5 MG MG t} MG Albuterol Albuterol No Albuterol Sulfate HFA Sulfate HFA Sulfate 108 (90 108 (90 HFA 108 Base) Base) (90 Base) MCG/ACT MCG/ACT MCG/ACT Eliquis 5 Eliquis 5 No 1{table BID Eliquis 5 MG MG t} MG [place] No 1{table QD [place] Thyroid 60 Thyroid 60 t_on_an Thyroid 60 MG MG _empty_ MG stomach } predniSONE predniSONE No 1{table QD predniSONE 10 MG 10 MG t} 10 MG Tamsulosin Tamsulosin No 1{capsu QD Tamsulosin HCl 0.4 MG HCl 0.4 MG le} HCl 0.4 MG Albuterol Albuterol No Albuterol Sulfate HFA Sulfate HFA Sulfate 108 (90 108 (90 HFA 108 Base) Base) (90 Base) MCG/ACT MCG/ACT MCG/ACT methylPREDN methylPREDN No methylPRED ISolone 4 ISolone 4 NISolone 4 MG MG MG Esomeprazol Esomeprazol No Esomeprazo e Magnesium e Magnesium le 20 MG 20 MG Magnesium 20 MG Myrbetriq Myrbetriq No 1{table QD Myrbetriq 50 MG 50 MG t} 50 MG Benzonatate Benzonatate No 1{capsu TID Benzonatat 100 MG 100 MG le_as_n e 100 MG eeded} Flonase Flonase No Flonase Vitamin C Vitamin C No Vitamin C Eliquis 5 Eliquis 5 No 1{table BID Eliquis 5 MG MG t} MG Albuterol Albuterol No Albuterol Sulfate HFA Sulfate HFA Sulfate 108 (90 108 (90 HFA 108 Base) Base) (90 Base) MCG/ACT MCG/ACT MCG/ACT Eliquis 5 Eliquis 5 No 1{table BID Eliquis 5 MG MG t} MG CoQ10 CoQ10 No CoQ10 [place] No 1{table QD [place] Thyroid 60 Thyroid 60 t_on_an Thyroid 60 MG MG _empty_ MG stomach } predniSONE predniSONE No 1{table QD predniSONE 10 MG 10 MG t} 10 MG Tamsulosin Tamsulosin No 1{capsu QD Tamsulosin HCl 0.4 MG HCl 0.4 MG le} HCl 0.4 MG predniSONE predniSONE No 1{table QD predniSONE 10 MG 10 MG t} 10 MG Esomeprazol Esomeprazol No Esomeprazo e Magnesium e Magnesium le 20 MG 20 MG Magnesium 20 MG Myrbetriq Myrbetriq No 1{table QD Myrbetriq 50 MG 50 MG t} 50 MG Benzonatate Benzonatate No 1{capsu TID Benzonatat 100 MG 100 MG le_as_n e 100 MG eeded} Flonase Flonase No Flonase Vitamin C Vitamin C No Vitamin C Eliquis 5 Eliquis 5 No 1{table BID Eliquis 5 MG MG t} MG Albuterol Albuterol No Albuterol Sulfate HFA Sulfate HFA Sulfate 108 (90 108 (90 HFA 108 Base) Base) (90 Base) MCG/ACT MCG/ACT MCG/ACT Eliquis 5 Eliquis 5 No 1{table BID Eliquis 5 MG MG t} MG [place] No 1{table QD [place] Thyroid 60 Thyroid 60 t_on_an Thyroid 60 MG MG _empty_ MG stomach } Vitamin D3 Vitamin D3 No Vitamin D3 [id number] UNIT/GM UNIT/GM UNIT/GM predniSONE predniSONE No 1{table QD predniSONE 10 MG 10 MG t} 10 MG Tamsulosin Tamsulosin No 1{capsu QD Tamsulosin HCl 0.4 MG HCl 0.4 MG le} HCl 0.4 MG Esomeprazol Esomeprazol No Esomeprazo e Magnesium e Magnesium le 20 MG 20 MG Magnesium 20 MG Myrbetriq Myrbetriq No 1{table QD Myrbetriq 50 MG 50 MG t} 50 MG Benzonatate Benzonatate No 1{capsu TID Benzonatat 100 MG 100 MG le_as_n e 100 MG eeded} Flonase Flonase No Flonase Vitamin C Vitamin C No Vitamin C Eliquis 5 Eliquis 5 No 1{table BID Eliquis 5 MG MG t} MG Albuterol Albuterol No Albuterol Sulfate HFA Sulfate HFA Sulfate 108 (90 108 (90 HFA 108 Base) Base) (90 Base) MCG/ACT MCG/ACT MCG/ACT Eliquis 5 Eliquis 5 No 1{table BID Eliquis 5 MG MG t} MG [place] No 1{table QD [place] Thyroid 60 Thyroid 60 t_on_an Thyroid 60 MG MG _empty_ MG stomach } levoFLOXaci levoFLOXaci No levoFLOXac n 500 MG n 500 MG in 500 MG predniSONE predniSONE No 1{table QD predniSONE 10 MG 10 MG t} 10 MG Tamsulosin Tamsulosin No 1{capsu QD Tamsulosin HCl 0.4 MG HCl 0.4 MG le} HCl 0.4 MG Zinc 25 MG Zinc 25 MG No 1{table QD Zinc 25 MG t} Cyclobenzap Cyclobenzap No 1{table QD Cyclobenza rine HCl 10 rine HCl 10 t_at_be wayne HCl MG MG dtime_a 10 MG s_neede d} Esomeprazol Esomeprazol No Esomeprazo e Magnesium e Magnesium le 20 MG 20 MG Magnesium 20 MG Myrbetriq Myrbetriq No 1{table QD Myrbetriq 50 MG 50 MG t} 50 MG Benzonatate Benzonatate No 1{capsu TID Benzonatat 100 MG 100 MG le_as_n e 100 MG eeded} Clopidogrel Clopidogrel No 1{table QD Clopidogre Bisulfate Bisulfate t} l 75 MG 75 MG Bisulfate 75 MG Flonase Flonase No Flonase Vitamin C Vitamin C No Vitamin C Eliquis 5 Eliquis 5 No 1{table BID Eliquis 5 MG MG t} MG Albuterol Albuterol No Albuterol Sulfate HFA Sulfate HFA Sulfate 108 (90 108 (90 HFA 108 Base) Base) (90 Base) MCG/ACT MCG/ACT MCG/ACT Eliquis 5 Eliquis 5 No 1{table BID Eliquis 5 MG MG t} MG [place] No 1{table QD [place] Thyroid 60 Thyroid 60 t_on_an Thyroid 60 MG MG _empty_ MG stomach } predniSONE predniSONE No 1{table QD predniSONE 10 MG 10 MG t} 10 MG Tamsulosin Tamsulosin No 1{capsu QD Tamsulosin HCl 0.4 MG HCl 0.4 MG le} HCl 0.4 MG prednisoLON prednisoLON No QD prednisoLO E 5 MG E 5 MG NE 5 MG Azelastine Azelastine No Azelastine HCl 0.1 % HCl 0.1 % HCl 0.1 % Cholesterol Cholesterol No Cholestero l Esomeprazol Esomeprazol No Esomeprazo e Magnesium e Magnesium le 20 MG 20 MG Magnesium 20 MG Myrbetriq Myrbetriq No 1{table QD Myrbetriq 50 MG 50 MG t} 50 MG Benzonatate Benzonatate No 1{capsu TID Benzonatat 100 MG 100 MG le_as_n e 100 MG eeded} Flonase Flonase No Flonase Vitamin C Vitamin C No Vitamin C Eliquis 5 Eliquis 5 No 1{table BID Eliquis 5 MG MG t} MG CVS Aspirin CVS Aspirin No CVS Adult Low Adult Low Aspirin Dose 81 MG Dose 81 MG Adult Low Dose 81 MG Albuterol Albuterol No Albuterol Sulfate HFA Sulfate HFA Sulfate 108 (90 108 (90 HFA 108 Base) Base) (90 Base) MCG/ACT MCG/ACT MCG/ACT Eliquis 5 Eliquis 5 No 1{table BID Eliquis 5 MG MG t} MG [place] No 1{table QD [place] Thyroid 60 Thyroid 60 t_on_an Thyroid 60 MG MG _empty_ MG stomach } predniSONE predniSONE No 1{table QD predniSONE 10 MG 10 MG t} 10 MG Tamsulosin Tamsulosin No 1{capsu QD Tamsulosin HCl 0.4 MG HCl 0.4 MG le} HCl 0.4 MG Esomeprazol Esomeprazol No Esomeprazo e Magnesium e Magnesium le 20 MG 20 MG Magnesium 20 MG Myrbetriq Myrbetriq No 1{table QD Myrbetriq 50 MG 50 MG t} 50 MG Benzonatate Benzonatate No 1{capsu TID Benzonatat 100 MG 100 MG le_as_n e 100 MG eeded} Flonase Flonase No Flonase Vitamin C Vitamin C No Vitamin C Eliquis 5 Eliquis 5 No 1{table BID Eliquis 5 MG MG t} MG Albuterol Albuterol No Albuterol Sulfate HFA Sulfate HFA Sulfate 108 (90 108 (90 HFA 108 Base) Base) (90 Base) MCG/ACT MCG/ACT MCG/ACT Eliquis 5 Eliquis 5 No 1{table BID Eliquis 5 MG MG t} MG [place] No 1{table QD [place] Thyroid 60 Thyroid 60 t_on_an Thyroid 60 MG MG _empty_ MG stomach } predniSONE predniSONE No 1{table QD predniSONE 10 MG 10 MG t} 10 MG Tamsulosin Tamsulosin No 1{capsu QD Tamsulosin HCl 0.4 MG HCl 0.4 MG le} HCl 0.4 MG Benzonatate Benzonatate No 1{capsu TID Benzonatat 100 MG 100 MG le_as_n e 100 MG eeded} Tamsulosin Tamsulosin No 1{capsu QD Tamsulosin HCl 0.4 MG HCl 0.4 MG le} HCl 0.4 MG Albuterol Albuterol No Albuterol Sulfate HFA Sulfate HFA Sulfate 108 (90 108 (90 HFA 108 Base) Base) (90 Base) MCG/ACT MCG/ACT MCG/ACT predniSONE predniSONE No 1{table QD predniSONE 10 MG 10 MG t} 10 MG Flonase Flonase No Flonase Myrbetriq Myrbetriq No 1{table QD Myrbetriq 50 MG 50 MG t} 50 MG Vitamin C Vitamin C No Vitamin C Eliquis 5 Eliquis 5 No 1{table BID Eliquis 5 MG MG t} MG Esomeprazol Esomeprazol No Esomeprazo e Magnesium e Magnesium le 20 MG 20 MG Magnesium 20 MG Eliquis 5 Eliquis 5 No 1{table BID Eliquis 5 MG MG t} MG [place] No 1{table QD [place] Thyroid 60 Thyroid 60 t_on_an Thyroid 60 MG MG _empty_ MG stomach } Benzonatate Benzonatate No 1{capsu TID Benzonatat 100 MG 100 MG le_as_n e 100 MG eeded} Tamsulosin Tamsulosin No 1{capsu QD Tamsulosin HCl 0.4 MG HCl 0.4 MG le} HCl 0.4 MG Albuterol Albuterol No Albuterol Sulfate HFA Sulfate HFA Sulfate 108 (90 108 (90 HFA 108 Base) Base) (90 Base) MCG/ACT MCG/ACT MCG/ACT predniSONE predniSONE No 1{table QD predniSONE 10 MG 10 MG t} 10 MG Flonase Flonase No Flonase Myrbetriq Myrbetriq No 1{table QD Myrbetriq 50 MG 50 MG t} 50 MG Vitamin C Vitamin C No Vitamin C Eliquis 5 Eliquis 5 No 1{table BID Eliquis 5 MG MG t} MG Esomeprazol Esomeprazol No Esomeprazo e Magnesium e Magnesium le 20 MG 20 MG Magnesium 20 MG Eliquis 5 Eliquis 5 No 1{table BID Eliquis 5 MG MG t} MG [place] No 1{table QD [place] Thyroid 60 Thyroid 60 t_on_an Thyroid 60 MG MG _empty_ MG stomach } [place] No 1{table QD [place] Thyroid 90 Thyroid 90 t_on_an Thyroid 90 MG MG _empty_ MG stomach } Flonase Flonase No Flonase Benzonatate Benzonatate No 1{capsu TID Benzonatat 100 MG 100 MG le_as_n e 100 MG eeded} Tamsulosin Tamsulosin No 1{capsu QD Tamsulosin HCl 0.4 MG HCl 0.4 MG le} HCl 0.4 MG Albuterol Albuterol No Albuterol Sulfate HFA Sulfate HFA Sulfate 108 (90 108 (90 HFA 108 Base) Base) (90 Base) MCG/ACT MCG/ACT MCG/ACT predniSONE predniSONE No 1{table QD predniSONE 10 MG 10 MG t} 10 MG Flonase Flonase No Flonase Myrbetriq Myrbetriq No 1{table QD Myrbetriq 50 MG 50 MG t} 50 MG Esomeprazol Esomeprazol No Esomeprazo e Magnesium e Magnesium le 20 MG 20 MG Magnesium 20 MG Vitamin C Vitamin C No Vitamin C Eliquis 5 Eliquis 5 No 1{table BID Eliquis 5 MG MG t} MG Esomeprazol Esomeprazol No Esomeprazo e Magnesium e Magnesium le 20 MG 20 MG Magnesium 20 MG Eliquis 5 Eliquis 5 No 1{table BID Eliquis 5 MG MG t} MG [place] No 1{table QD [place] Thyroid 60 Thyroid 60 t_on_an Thyroid 60 MG MG _empty_ MG stomach } Testosteron Testosteron No Testostero e Cypionate e Cypionate ne 200 MG/ML 200 MG/ML Cypionate 200 MG/ML Tumersaid Tumersaid No Tumersaid Benzonatate Benzonatate No 1{capsu TID Benzonatat 100 MG 100 MG le_as_n e 100 MG eeded} Bisoprolol Bisoprolol No QD Bisoprolol Fumarate 5 Fumarate 5 Fumarate 5 MG MG MG Tamsulosin Tamsulosin No 1{capsu QD Tamsulosin HCl 0.4 MG HCl 0.4 MG le} HCl 0.4 MG Albuterol Albuterol No Albuterol Sulfate HFA Sulfate HFA Sulfate 108 (90 108 (90 HFA 108 Base) Base) (90 Base) MCG/ACT MCG/ACT MCG/ACT predniSONE predniSONE No 1{table QD predniSONE 10 MG 10 MG t} 10 MG Flonase Flonase No Flonase Myrbetriq Myrbetriq No 1{table QD Myrbetriq 50 MG 50 MG t} 50 MG Vitamin C Vitamin C No Vitamin C Eliquis 5 Eliquis 5 No 1{table BID Eliquis 5 MG MG t} MG Esomeprazol Esomeprazol No Esomeprazo e Magnesium e Magnesium le 20 MG 20 MG Magnesium 20 MG Eliquis 5 Eliquis 5 No 1{table BID Eliquis 5 MG MG t} MG Vitamin C Vitamin C No Vitamin C [place] No 1{table QD [place] Thyroid 60 Thyroid 60 t_on_an Thyroid 60 MG MG _empty_ MG stomach } Ventolin Ventolin No Ventolin HFA HFA HFA Benzonatate Benzonatate No 1{capsu TID Benzonatat 100 MG 100 MG le_as_n e 100 MG eeded} Tamsulosin Tamsulosin No 1{capsu QD Tamsulosin HCl 0.4 MG HCl 0.4 MG le} HCl 0.4 MG Albuterol Albuterol No Albuterol Sulfate HFA Sulfate HFA Sulfate 108 (90 108 (90 HFA 108 Base) Base) (90 Base) MCG/ACT MCG/ACT MCG/ACT predniSONE predniSONE No 1{table QD predniSONE 10 MG 10 MG t} 10 MG Flonase Flonase No Flonase Myrbetriq Myrbetriq No 1{table QD Myrbetriq 50 MG 50 MG t} 50 MG Vitamin C Vitamin C No Vitamin C Bisoprolol- Bisoprolol- No Bisoprolol hydroCHLORO hydroCHLORO -hydroCHLO thiazide thiazide ROthiazide 2.5-6.25 MG 2.5-6.25 MG 2.5-6.25 MG Eliquis 5 Eliquis 5 No 1{table BID Eliquis 5 MG MG t} MG Esomeprazol Esomeprazol No Esomeprazo e Magnesium e Magnesium le 20 MG 20 MG Magnesium 20 MG Eliquis 5 Eliquis 5 No 1{table BID Eliquis 5 MG MG t} MG [place] No 1{table QD [place] Thyroid 60 Thyroid 60 t_on_an Thyroid 60 MG MG _empty_ MG stomach } Albuterol [...] Vitamin D3 Vitamin D3 No Vitamin D3 [id number] UNIT/GM UNIT/GM UNIT/GM levoFLOXaci levoFLOXaci No levoFLOXac [...] HFA HFA Vitamin D3 Vitamin D3 No [id number] UNIT/GM UNIT/GM Zinc 25 MG Zinc 25 MG No 1{table QD t} Esomeprazol Esomeprazol No e Magnesium e Magnesium 20 MG 20 MG predniSONE predniSONE No 1{table QD 10 MG 10 MG t} CVS Aspirin CVS Aspirin No Adult Low Adult Low Dose 81 MG Dose 81 MG Tamsulosin Tamsulosin No 1{capsu QD HCl 0.4 MG HCl 0.4 MG le} [place] No 1{table QD Thyroid 90 Thyroid 90 [...] Vitamin D3 Vitamin D3 No Vitamin D3 [id number] UNIT/GM UNIT/GM UNIT/GM Esomeprazol Esomeprazol No Esomeprazo [...] Ventolin Ventolin No Ventolin HFA HFA HFA [place] No 1{table QD [place] Thyroid 90 Thyroid 90 t_on_an Thyroid 90 MG MG _empty_ MG stomach } Vitamin C Vitamin C No Vitamin C Bisoprolol- Bisoprolol- No Bisoprolol hydroCHLORO hydroCHLORO -hydroCHLO thiazide thiazide ROthiazide 2.5-6.25 MG 2.5-6.25 MG 2.5-6.25 MG Azelastine Azelastine No Azelastine HCl 0.1 % HCl 0.1 % HCl 0.1 % predniSONE predniSONE No 1{table QD predniSONE 10 MG 10 MG t} 10 MG [place] No 1{table QD [place] Thyroid 90 Thyroid 90 t_on_an Thyroid 90 [...] Vitamin D3 Vitamin D3 No Vitamin D3 [id number] UNIT/GM UNIT/GM UNIT/GM CoQ10 CoQ10 No CoQ10 [...] Vitamin D3 Vitamin D3 No Vitamin D3 5185621 [id number] UNIT/GM UNIT/GM UNIT/GM Bisoprolol Bisoprolol No QD Bisoprolol Fumarate 5 Fumarate 5 Fumarate 5 MG MG MG predniSONE predniSONE No 1{table QD predniSONE 10 MG 10 MG t} 10 MG [place] No 1{table QD [place] Thyroid 90 Thyroid 90 t_on_an Thyroid 90 [...] MG le} Vitamin D3 Vitamin D3 No [id number] UNIT/GM UNIT/GM Bisoprolol Bisoprolol No QD Fumarate 5 Fumarate 5 MG MG predniSONE predniSONE No 1{table QD 10 MG 10 MG t} [place] No 1{table QD Thyroid 90 Thyroid 90 [...] Vitamin C Vitamin C No Vitamin C Augustus Coffman No 1{table QD [place] Thyroid 90 Thyroid 90 t_on_an Thyroid 90 MG MG _empty_ MG stomach } Vitamin D3 Vitamin D3 No Vitamin D3 [id number] UNIT/GM UNIT/GM UNIT/GM Azelastine Azelastine No Azelastine [...] Vitamin C Vitamin C No Vitamin C [place] No 1{table QD [place] Thyroid 90 Thyroid 90 t_on_an Thyroid 90 MG MG _empty_ MG stomach } Vitamin D3 Vitamin D3 No Vitamin D3 5154610 [id number] UNIT/GM UNIT/GM UNIT/GM Azelastine Azelastine No Azelastine [...] MG MG dtime_a 10 MG s_neede d} [place] No 1{table QD [place] Thyroid 90 Thyroid 90 t_on_an Thyroid 90 [...] Vitamin D3 Vitamin D3 No Vitamin D3 [id number] UNIT/GM UNIT/GM UNIT/GM Zinc 25 MG Zinc [...] MG MG dtime_a 10 MG s_neede d} [place] No 1{table QD [place] Thyroid 90 Thyroid 90 t_on_an Thyroid 90 [...] Vitamin D3 Vitamin D3 No Vitamin D3 [id number] UNIT/GM UNIT/GM UNIT/GM Zinc 25 MG Zinc [...] 10 t_at_be MG MG dtime_a s_neede d} [place] No 1{table QD Thyroid 90 Thyroid 90 [...] 81 MG Vitamin D3 Vitamin D3 No [id number] UNIT/GM UNIT/GM Zinc 25 MG Zinc 25 [...] 10 t_at_be MG MG dtime_a s_neede d} [place] No 1{table QD Thyroid 90 Thyroid 90 [...] 81 MG Vitamin D3 Vitamin D3 No [id number] UNIT/GM UNIT/GM Zinc 25 MG Zinc 25 [...] Vitamin D3 Vitamin D3 No Vitamin D3 4144948 [id number] UNIT/GM UNIT/GM UNIT/GM Testosteron Testosteron No Testostero [...] 10 MG 10 MG t} 10 MG [place] No 1{table QD [place] Thyroid 90 Thyroid 90 t_on_an Thyroid 90 MG MG _empty_ MG stomach } Cyclobenzap Cyclobenzap No 1{table QD Cyclobenza rine HCl 10 rine HCl 10 t_at_be wayne HCl MG MG dtime_a 10 MG s_neede d} Clopidogrel Clopidogrel No 1{table QD Clopidogre Bisulfate Bisulfate t} l 75 MG 75 MG Bisulfate 75 MG Vitamin D3 Vitamin D3 No Vitamin D3 [id number] UNIT/GM UNIT/GM UNIT/GM Testosteron Testosteron No Testostero [...] 10 MG 10 MG t} 10 MG [place] No 1{table QD [place] Thyroid 90 Thyroid 90 t_on_an Thyroid 90 MG MG _empty_ MG stomach } Cyclobenzap Cyclobenzap No 1{table QD Cyclobenza rine HCl 10 rine HCl 10 t_at_be wayne HCl MG MG dtime_a 10 MG s_neede d} Esomeprazol Esomeprazol No Esomeprazo e Magnesium e Magnesium le 20 MG 20 MG Magnesium 20 MG Ventolin Ventolin No Ventolin HFA HFA HFA [place] No 1{table QD [place] Thyroid 90 Thyroid 90 t_on_an Thyroid 90 [...] Vitamin D3 Vitamin D3 No Vitamin D3 [id number] UNIT/GM UNIT/GM UNIT/GM Tumersaid Tumersaid No Tumersaid [...] Ventolin Ventolin No Ventolin HFA HFA HFA [place] No 1{table QD [place] Thyroid 90 Thyroid 90 t_on_an Thyroid 90 [...] Vitamin D3 Vitamin D3 No Vitamin D3 [id number] UNIT/GM UNIT/GM UNIT/GM CVS Aspirin CVS Aspirin [...] Vitamin D3 Vitamin D3 No Vitamin D3 1922128 [id number] UNIT/GM UNIT/GM UNIT/GM predniSONE predniSONE No 1{table [...] MG MG dtime_a 10 MG s_neede d} [place] No 1{table QD [place] Thyroid 90 Thyroid 90 t_on_an Thyroid 90 [...] Vitamin D3 Vitamin D3 No Vitamin D3 [id number] UNIT/GM UNIT/GM UNIT/GM predniSONE predniSONE No 1{table [...] MG MG dtime_a 10 MG s_neede d} [place] No 1{table QD [place] Thyroid 90 Thyroid 90 t_on_an Thyroid 90 MG MG _empty_ MG stomach } Esomeprazol Esomeprazol No Esomeprazo e Magnesium e Magnesium le 20 MG 20 MG Magnesium 20 MG prednisoLON prednisoLON No QD prednisoLO E 5 MG E 5 MG NE 5 MG [place] No 1{table QD [place] Thyroid 90 Thyroid 90 t_on_an Thyroid 90 MG MG _empty_ MG stomach } Bisoprolol Bisoprolol No QD Bisoprolol Fumarate 5 Fumarate 5 Fumarate 5 MG MG MG Flonase Flonase No Flonase Vitamin D3 Vitamin D3 No Vitamin D3 [id number] UNIT/GM UNIT/GM UNIT/GM Albuterol Albuterol No Albuterol [...] MG E 5 MG NE 5 MG [place] No 1{table QD [place] Thyroid 90 Thyroid 90 t_on_an Thyroid 90 MG MG _empty_ MG stomach } Bisoprolol Bisoprolol No QD Bisoprolol Fumarate 5 Fumarate 5 Fumarate 5 MG MG MG Flonase Flonase No Flonase Vitamin D3 Vitamin D3 No Vitamin D3 [id number] UNIT/GM UNIT/GM UNIT/GM Albuterol Albuterol No Albuterol [...] % HCl 0.1 % HCl 0.1 % [place] No 1{table QD [place] Thyroid 90 Thyroid 90 t_on_an Thyroid 90 [...] Vitamin D3 Vitamin D3 No Vitamin D3 [id number] UNIT/GM UNIT/GM UNIT/GM methylPREDN methylPREDN No methylPRED [...] % HCl 0.1 % HCl 0.1 % [place] No 1{table QD [place] Thyroid 90 Thyroid 90 t_on_an Thyroid 90 [...] Vitamin D3 Vitamin D3 No Vitamin D3 [id number] UNIT/GM UNIT/GM UNIT/GM methylPREDN methylPREDN No methylPRED [...] Vitamin D3 Vitamin D3 No Vitamin D3 [id number] UNIT/GM UNIT/GM UNIT/GM levoFLOXaci levoFLOXaci No levoFLOXac [...] Fumarate 5 Fumarate 5 MG MG MG [place] No 1{table QD [place] Thyroid 90 Thyroid 90 t_on_an Thyroid 90 [...] 200 MG/ML 200 MG/ML Cypionate 200 MG/ML [place] No 1{table QD [place] Thyroid 90 Thyroid 90 t_on_an Thyroid 90 [...] Vitamin D3 Vitamin D3 No Vitamin D3 [id number] UNIT/GM UNIT/GM UNIT/GM Albuterol Albuterol No Albuterol Sulfate HFA Sulfate HFA Sulfate 108 (90 108 (90 HFA 108 Base) Base) (90 Base) MCG/ACT MCG/ACT MCG/ACT Azelastine Azelastine No Azelastine HCl 0.1 % HCl 0.1 % HCl 0.1 % Bisoprolol- Bisoprolol- No Bisoprolol hydroCHLORO hydroCHLORO -hydroCHLO thiazide thiazide ROthiazide 2.5-6.25 MG 2.5-6.25 MG 2.5-6.25 MG Vitamin D3 Vitamin D3 No Vitamin D3 [id number] UNIT/GM UNIT/GM UNIT/GM Tamsulosin Tamsulosin 2022- No 1{capsu QD Tamsulosin [...] MG 05 le} 00:00 :00 Immunizations Ordered Filled Immunization Date Status Comments [facility] e Immunization Name Name Pneumovax (PPSV23) Pneumovax (PPSV23) 2021-09-15 Completed [facility]:17:00 [facility] Pneumovax (PPSV23) Pneumovax (PPSV23) 2021-09-15 Completed [facility] 15:17:00 [facility] Pneumovax (PPSV23) Pneumovax (PPSV23) 2021-09-15 Completed [facility] 15:17:00 [facility] Pneumovax (PPSV23) Pneumovax (PPSV23) 2021-09-15 Completed [facility] 15:17:00 [facility] Pneumovax (PPSV23) Pneumovax (PPSV23) 2021-09-15 Completed [facility] 15:17:00 [facility] Pneumovax (PPSV23) Pneumovax (PPSV23) 2021-09-15 Completed [facility] 15:17:00 [facility] Pneumovax (PPSV23) Pneumovax (PPSV23) 2021-09-15 Completed [facility] 15:17:00 [facility] Pneumovax (PPSV23) Pneumovax (PPSV23) 2021-09-15 Completed [facility] 15:17:00 [facility] Pneumovax (PPSV23) Pneumovax (PPSV23) 2021-09-15 Completed [facility] 15:17:00 [facility] Pneumovax (PPSV23) Pneumovax (PPSV23) 2021-09-15 Completed [facility] 15:17:00 [facility] Pneumovax (PPSV23) Pneumovax (PPSV23) 2021-09-15 Completed [facility] 15:17:00 [facility] Pneumovax (PPSV23) Pneumovax (PPSV23) 2021-09-15 Completed [facility] 15:17:00 [facility] Pneumovax (PPSV23) Pneumovax (PPSV23) 2021-09-15 Completed [facility] 15:17:00 [facility] Pneumovax (PPSV23) Pneumovax (PPSV23) 2021-09-15 Completed [facility] 15:17:00 [facility] Pneumovax (PPSV23) Pneumovax (PPSV23) 2021-09-15 Completed [facility] 15:17:00 [facility] Pneumovax (PPSV23) Pneumovax (PPSV23) 2021-09-15 Completed [facility] 15:17:00 [facility] Pneumovax (PPSV23) Pneumovax (PPSV23) 2021-09-15 Completed [facility] 15:17:00 [facility] Pneumovax (PPSV23) Pneumovax (PPSV23) 2021-09-15 Completed [facility] 15:17:00 [facility] Pneumovax (PPSV23) Pneumovax (PPSV23) 2021-09-15 Completed [facility] 15:17:00 [facility] Pneumovax (PPSV23) Pneumovax (PPSV23) 2021-09-15 Completed [facility] 15:17:00 [facility] Pneumovax (PPSV23) Pneumovax (PPSV23) 2021-09-15 Completed [facility] 15:17:00 [facility] Pneumovax (PPSV23) Pneumovax (PPSV23) 2021-09-15 Completed [facility] 15:17:00 [facility] Pneumovax (PPSV23) Pneumovax (PPSV23) 2021-09-15 Completed [facility] 15:17:00 [facility] Pneumovax (PPSV23) Pneumovax (PPSV23) 2021-09-15 Completed [facility] 15:17:00 [facility] Pneumovax (PPSV23) Pneumovax (PPSV23) 2021-09-15 Completed [facility] 15:17:00 [facility] Pneumovax (PPSV23) Pneumovax (PPSV23) 2021-09-15 Completed [facility] 15:17:00 [facility] Pneumovax (PPSV23) Pneumovax (PPSV23) 2021-09-15 Completed [facility] 15:17:00 [facility] Pneumovax (PPSV23) Pneumovax (PPSV23) 2021-09-15 Completed [facility] 15:17:00 [facility] Pneumovax (PPSV23) Pneumovax (PPSV23) 2021-09-15 Completed [facility] 15:17:00 [facility] Pneumovax (PPSV23) Pneumovax (PPSV23) 2021-09-15 Completed [facility] 15:17:00 [facility] Pneumovax (PPSV23) Pneumovax (PPSV23) 2021-09-15 Completed [facility] 15:17:00 [facility] Pneumovax (PPSV23) Pneumovax (PPSV23) 2021-09-15 Completed [facility] 15:17:00 [facility] Pneumovax (PPSV23) Pneumovax (PPSV23) 2021-09-15 Completed [facility] 15:17:00 [facility] Pneumovax (PPSV23) Pneumovax (PPSV23) 2021-09-15 Completed [facility] 15:17:00 [facility] Pneumovax (PPSV23) Pneumovax (PPSV23) 2021-09-15 Completed [facility] 15:17:00 [facility] Pneumovax (PPSV23) Pneumovax (PPSV23) 2021-09-15 Completed [facility] 15:17:00 [facility] Pneumovax (PPSV23) Pneumovax (PPSV23) 2021-09-15 Completed [facility] 15:17:00 [facility] Pneumovax (PPSV23) Pneumovax (PPSV23) 2021-09-15 Completed [facility] 15:17:00 [facility] Pneumovax (PPSV23) Pneumovax (PPSV23) 2021-09-15 Completed [facility] 15:17:00 [facility] Pneumovax (PPSV23) Pneumovax (PPSV23) 2021-09-15 Completed [facility] 15:17:00 [facility] Pneumovax (PPSV23) Pneumovax (PPSV23) 2021-09-15 Completed [facility] 15:17:00 [facility] Pneumovax (PPSV23) Pneumovax (PPSV23) 2021-09-15 Completed [facility] 15:17:00 [facility] Pneumovax (PPSV23) Pneumovax (PPSV23) 2021-09-15 Completed [facility] 15:17:00 [facility] Pneumovax (PPSV23) Pneumovax (PPSV23) 2021-09-15 Completed [facility] 15:17:00 [facility] Pneumovax (PPSV23) Pneumovax (PPSV23) 2021-09-15 Completed [facility] 15:17:00 [facility] Pneumovax (PPSV23) Pneumovax (PPSV23) 2021-09-15 Completed [facility] 15:17:00 [facility] Pneumovax (PPSV23) Pneumovax (PPSV23) 2021-09-15 Completed [facility] 15:17:00 [facility] Pneumovax (PPSV23) Pneumovax (PPSV23) 2021-09-15 Completed [facility] 15:17:00 [facility] Pneumovax (PPSV23) Pneumovax (PPSV23) 2021-09-15 Completed [facility] 15:17:00 [facility] Pneumovax (PPSV23) Pneumovax (PPSV23) Unknown Completed [facility] Pneumovax (PPSV23) Pneumovax (PPSV23) Unknown Completed [facility] Pneumovax (PPSV23) Pneumovax (PPSV23) Unknown Completed [facility] Pneumovax (PPSV23) Pneumovax (PPSV23) Unknown Completed [facility] Pneumovax (PPSV23) Pneumovax (PPSV23) Unknown Completed [facility] Pneumovax (PPSV23) Pneumovax (PPSV23) Unknown Completed [facility] Pneumovax (PPSV23) Pneumovax (PPSV23) Unknown Completed [facility] Pneumovax (PPSV23) Pneumovax (PPSV23) Unknown Completed [facility] Pneumovax (PPSV23) Pneumovax (PPSV23) Unknown Completed [facility] Pneumovax (PPSV23) Pneumovax (PPSV23) Unknown Completed [facility] Pneumovax (PPSV23) Pneumovax (PPSV23) Unknown Completed [facility] Pneumovax (PPSV23) Pneumovax (PPSV23) Unknown Completed [facility] Pneumovax (PPSV23) Pneumovax (PPSV23) Unknown Completed [facility] Pneumovax (PPSV23) Pneumovax (PPSV23) Unknown Completed [facility] Pneumovax (PPSV23) Pneumovax (PPSV23) Unknown Completed [facility] Vital Signs Vital Name Observation Time Observation Value Comments Source height 2023-02-23 11:00:00 65 [in_i] [facility] weight 2023-02-23 11:00:00 165 [lb_av] [facility] temperature 2023-02-23 11:00:00 98.6 [degF] [facility] bmi 2023-02-23 11:00:00 27.45 kg/m2 [facility] oximetry 2023-02-23 11:00:00 99 % [facility] respiratory rate 2023-02-23 11:00:00 18 /min Comm on [facility] blood pressure 2023-02-23 11:00:00 136 mm[Hg] [facility] - systolic [facility] blood pressure 2023-02-23 11:00:00 80 mm[Hg] [facility] - diastolic [facility] height 2023-02-08 11:00:00 65 [in_i] [facility] weight 2023-02-08 11:00:00 165 [lb_av] [facility] temperature 2023-02-08 11:00:00 98.6 [degF] [facility] bmi 2023-02-08 11:00:00 27.45 kg/m2 [facility] oximetry 2023-02-08 11:00:00 99 % [facility] respiratory rate 2023-02-08 11:00:00 18 /min Comm on [facility] blood pressure 2023-02-08 11:00:00 138 mm[Hg] [facility] - systolic [facility] blood pressure 2023-02-08 11:00:00 61 mm[Hg] [facility] - diastolic [facility] height 2022-12-23 15:30:00 65 [in_i] [facility] weight 2022-12-23 15:30:00 165 [lb_av] [facility] temperature 2022-12-23 15:30:00 97.6 [degF] [facility] bmi 2022-12-23 15:30:00 27.45 kg/m2 [facility] oximetry 2022-12-23 15:30:00 99 % [facility] S [facility] respiratory rate 2022-12-23 15:30:00 18 /min Comm on [facility] blood pressure 2022-12-23 15:30:00 141 mm[Hg] [facility] - systolic [facility] blood pressure 2022-12-23 15:30:00 61 mm[Hg] [facility] - diastolic [facility] height 2022-12-20 10:00:00 65 [in_i] [facility] weight 2022-12-20 10:00:00 165 [lb_av] [facility] temperature 2022-12-20 10:00:00 97.6 [degF] [facility] bmi 2022-12-20 10:00:00 27.45 kg/m2 [facility] blood pressure 2022-12-20 10:00:00 131 mm[Hg] [facility] - systolic [facility] blood pressure 2022-12-20 10:00:00 71 mm[Hg] [facility] - diastolic [facility] height 2022-12-10 10:00:00 65 [in_i] [facility] weight 2022-12-10 10:00:00 166 [lb_av] [facility] temperature 2022-12-10 10:00:00 97.4 [degF] [facility] bmi 2022-12-10 10:00:00 27.62 kg/m2 [facility] blood pressure 2022-12-10 10:00:00 130 mm[Hg] [facility] - systolic [facility] blood pressure 2022-12-10 10:00:00 78 mm[Hg] [facility] - diastolic [facility] height 2022-12-02 10:00:00 65 [in_i] [facility] weight 2022-12-02 10:00:00 165 [lb_av] [facility] temperature 2022-12-02 10:00:00 98.0 [degF] [facility] bmi 2022-12-02 10:00:00 27.45 kg/m2 [facility] blood pressure 2022-12-02 10:00:00 128 mm[Hg] [facility] - systolic [facility] blood pressure 2022-12-02 10:00:00 74 mm[Hg] [facility] - diastolic [facility] height 2022-11-04 14:30:00 65 [in_i] [facility] weight 2022-11-04 14:30:00 165 [lb_av] [facility] temperature 2022-11-04 14:30:00 97.6 [degF] [facility] bmi 2022-11-04 14:30:00 27.45 kg/m2 [facility] oximetry 2022-11-04 14:30:00 98 % [facility] respiratory rate 2022-11-04 14:30:00 16 /min Comm on [facility] blood pressure 2022-11-04 14:30:00 130 mm[Hg] [facility] - systolic [facility] blood pressure 2022-11-04 14:30:00 62 mm[Hg] [facility] - diastolic [facility] height 2022-10-06 14:40:00 65 [in_i] [facility] weight 2022-10-06 14:40:00 163.6 [lb_av] [facility] temperature 2022-10-06 14:40:00 97.0 [degF] [facility] bmi 2022-10-06 14:40:00 27.22 kg/m2 [facility] oximetry 2022-10-06 14:40:00 98 % [facility] respiratory rate 2022-10-06 14:40:00 18 /min Comm on [facility] blood pressure 2022-10-06 14:40:00 121 mm[Hg] [facility] - systolic [facility] blood pressure 2022-10-06 14:40:00 68 mm[Hg] [facility] - diastolic [facility] height 2022-09-15 09:20:00 65 [in_i] [facility] weight 2022-09-15 09:20:00 167.1 [lb_av] [facility] temperature 2022-09-15 09:20:00 97.1 [degF] [facility] bmi 2022-09-15 09:20:00 27.8 kg/m2 [facility] oximetry 2022-09-15 09:20:00 99 % [facility] respiratory rate 2022-09-15 09:20:00 18 /min Comm on [facility] blood pressure 2022-09-15 09:20:00 119 mm[Hg] [facility] - systolic [facility] blood pressure 2022-09-15 09:20:00 68 mm[Hg] [facility] - diastolic [facility] height 2022-09-15 09:30:00 65 [in_i] [facility] weight 2022-09-15 09:30:00 167.1 [lb_av] [facility] temperature 2022-09-15 09:30:00 97.1 [degF] [facility] bmi 2022-09-15 09:30:00 27.8 kg/m2 [facility] oximetry 2022-09-15 09:30:00 99 % [facility] respiratory rate 2022-09-15 09:30:00 18 /min Comm on [facility] blood pressure 2022-09-15 09:30:00 119 mm[Hg] [facility] - systolic [facility] blood pressure 2022-09-15 09:30:00 68 mm[Hg] [facility] - diastolic [facility] height 2022-08-09 08:15:00 65 [in_i] [facility] weight 2022-08-09 08:15:00 167 [lb_av] [facility] temperature 2022-08-09 08:15:00 98.0 [degF] [facility] bmi 2022-08-09 08:15:00 27.79 kg/m2 [facility] blood pressure 2022-08-09 08:15:00 128 mm[Hg] [facility] - systolic [facility] blood pressure 2022-08-09 08:15:00 80 mm[Hg] [facility] - diastolic [facility] height 2022-07-14 10:00:00 65 [in_i] [facility] weight 2022-07-14 10:00:00 167 [lb_av] [facility] temperature 2022-07-14 10:00:00 97.6 [degF] [facility] 2022-07-14 10:00:00 27.79 kg/m2 [facility] blood pressure 2022-07-14 10:00:00 130 mm[Hg] [facility] - systolic [facility] blood pressure 2022-07-14 10:00:00 74 mm[Hg] [facility] - diastolic [facility] height 2022-07-12 09:30:00 65 [in_i] [facility] weight 2022-07-12 09:30:00 167 [lb_av] [facility] temperature 2022-07-12 09:30:00 98.3 [degF] [facility] bmi 2022-07-12 09:30:00 27.79 kg/m2 [facility] blood pressure 2022-07-12 09:30:00 132 mm[Hg] [facility] - systolic [facility] blood pressure 2022-07-12 09:30:00 72 mm[Hg] [facility] - diastolic [facility] height 2022-07-02 09:30:00 65 [in_i] [facility] weight 2022-07-02 09:30:00 168 [lb_av] [facility] temperature 2022-07-02 09:30:00 97.3 [degF] [facility] bmi 2022-07-02 09:30:00 27.95 kg/m2 [facility] blood pressure 2022-07-02 09:30:00 130 mm[Hg] [facility] - systolic [facility] blood pressure 2022-07-02 09:30:00 70 mm[Hg] [facility] - diastolic [facility] height 2022-06-14 09:00:00 65 [in_i] [facility] weight 2022-06-14 09:00:00 168 [lb_av] [facility] temperature 2022-06-14 09:00:00 97.2 [degF] [facility] bmi 2022-06-14 09:00:00 27.95 kg/m2 [facility] blood pressure 2022-06-14 09:00:00 128 mm[Hg] [facility] - systolic [facility] blood pressure 2022-06-14 09:00:00 70 mm[Hg] [facility] - diastolic [facility] height 2022-06-10 10:00:00 65 [in_i] [facility] weight 2022-06-10 10:00:00 168.4 [lb_av] [facility] temperature 2022-06-10 10:00:00 97.7 [degF] [facility] bmi 2022-06-10 10:00:00 28.02 kg/m2 [facility] respiratory rate 2022-06-10 10:00:00 18 /min Comm on [facility] blood pressure 2022-06-10 10:00:00 123 mm[Hg] [facility] - systolic [facility] blood pressure 2022-06-10 10:00:00 65 mm[Hg] [facility] - diastolic [facility] height 2022-05-17 09:45:00 65 [in_i] [facility] weight 2022-05-17 09:45:00 166 [lb_av] [facility] temperature 2022-05-17 09:45:00 97.4 [degF] [facility] bmi 2022-05-17 09:45:00 27.62 kg/m2 [facility] blood pressure 2022-05-17 09:45:00 124 mm[Hg] [facility] - systolic [facility] blood pressure 2022-05-17 09:45:00 70 mm[Hg] [facility] - diastolic [facility] height 2022-04-28 14:45:00 65 [in_i] [facility] weight 2022-04-28 14:45:00 166.9 [lb_av] [facility] temperature 2022-04-28 14:45:00 97.3 [degF] [facility] bmi 2022-04-28 14:45:00 27.77 kg/m2 [facility] blood pressure 2022-04-28 14:45:00 122 mm[Hg] [facility] - systolic [facility] blood pressure 2022-04-28 14:45:00 61 mm[Hg] [facility] - diastolic [facility] height 2022-04-07 14:30:00 65 [in_i] [facility] weight 2022-04-07 14:30:00 166.9 [lb_av] [facility] temperature 2022-04-07 14:30:00 98.0 [degF] [facility] bmi 2022-04-07 14:30:00 27.77 kg/m2 [facility] blood pressure 2022-04-07 14:30:00 118 mm[Hg] [facility] - systolic [facility] blood pressure 2022-04-07 14:30:00 60 mm[Hg] [facility] - diastolic [facility] height 2022-04-05 13:20:00 65 [in_i] [facility] weight 2022-04-05 13:20:00 166.9 [lb_av] [facility] temperature 2022-04-05 13:20:00 97.3 [degF] [facility] bmi 2022-04-05 13:20:00 27.77 kg/m2 [facility] oximetry 2022-04-05 13:20:00 99 % [facility] respiratory rate 2022-04-05 13:20:00 16 /min Comm on [facility] blood pressure 2022-04-05 13:20:00 118 mm[Hg] [facility] - systolic [facility] blood pressure 2022-04-05 13:20:00 60 mm[Hg] [facility] - diastolic [facility] height 2022-03-17 11:00:00 65 [in_i] [facility] weight 2022-03-17 11:00:00 165 [lb_av] [facility] temperature 2022-03-17 11:00:00 98.2 [degF] [facility] bmi 2022-03-17 11:00:00 27.45 kg/m2 [facility] oximetry 2022-03-17 11:00:00 98 % [facility] respiratory rate 2022-03-17 11:00:00 16 /min Comm on [facility] blood pressure 2022-03-17 11:00:00 138 mm[Hg] [facility] - systolic [facility] blood pressure 2022-03-17 11:00:00 63 mm[Hg] [facility] - diastolic [facility] height 2022-03-10 08:00:00 65 [in_i] [facility] weight 2022-03-10 08:00:00 166.4 [lb_av] [facility] temperature 2022-03-10 08:00:00 97.7 [degF] [facility] bmi 2022-03-10 08:00:00 27.69 kg/m2 [facility] oximetry 2022-03-10 08:00:00 99 % [facility] respiratory rate 2022-03-10 08:00:00 18 /min Comm on [facility] blood pressure 2022-03-10 08:00:00 110 mm[Hg] [facility] systolic [facility] blood pressure 2022-03-10 08:00:00 59 mm[Hg] [facility] - diastolic [facility] height 2022-02-24 09:00:00 66 [in_i] [facility] weight 2022-02-24 09:00:00 165 [lb_av] [facility] bmi 2022-02-24 09:00:00 26.63 kg/m2 [facility] blood pressure 2022-02-24 09:00:00 110 mm[Hg] [facility] systolic [facility] blood pressure 2022-02-24 09:00:00 70 mm[Hg] [facility] diastolic [facility] height 2022-02-15 11:00:00 66 [in_i] [facility] weight 2022-02-15 11:00:00 165 [lb_av] [facility] bmi 2022-02-15 11:00:00 26.63 kg/m2 [facility] blood pressure 2022-02-15 11:00:00 108 mm[Hg] [facility] blood pressure 2022-02-15 11:00:00 70 mm[Hg] [facility] diastolic [facility] height 2022-02-08 09:15:00 66 [in_i] [facility] weight 2022-02-08 09:15:00 165.1 [lb_av] [facility] - [facility] bmi 2022-02-08 09:15:00 26.64 kg/m2 [facility] blood pressure 2022-02-08 09:15:00 107 mm[Hg] [facility] systolic [facility] blood pressure 2022-02-08 09:15:00 67 mm[Hg] [facility] height 2021-12-22 10:00:00 66 [in_i] [facility] weight 2021-12-22 10:00:00 165.2 [lb_av] [facility] temperature 2021-12-22 10:00:00 96.7 [degF] [facility] bmi 2021-12-22 10:00:00 26.66 kg/m2 [facility] oximetry 2021-12-22 10:00:00 98 % [facility] respiratory rate 2021-12-22 10:00:00 16 /min [facility] blood pressure 2021-12-22 10:00:00 136 mm[Hg] [facility] - systolic [facility] blood pressure 2021-12-22 10:00:00 64 mm[Hg] [facility] diastolic [facility] height 2021-12-07 09:00:00 66 [in_i] [facility] weight 2021-12-07 09:00:00 164 [lb_av] [facility] bmi 2021-12-07 09:00:00 26.47 kg/m2 [facility] blood pressure 2021-12-07 09:00:00 118 mm[Hg] [facility] blood pressure 2021-12-07 09:00:00 70 mm[Hg] [facility] - diastolic [facility] height 2021-11-19 08:30:00 66 [in_i] [facility] weight 2021-11-19 08:30:00 164.6 [lb_av] [facility] - [facility] bmi 2021-11-19 08:30:00 26.56 kg/m2 [facility] blood pressure 2021-11-19 08:30:00 112 mm[Hg] [facility] - systolic [facility] blood pressure 2021-11-19 08:30:00 62 mm[Hg] [facility] - diastolic [facility] height 2021-11-13 11:15:00 66 [in_i] Common [facility] weight 2021-11-13 11:15:00 165 [lb_av] [facility] temperature 2021-11-13 11:15:00 98.2 [degF] [facility] bmi 2021-11-13 11:15:00 26.63 kg/m2 [facility] oximetry 2021-11-13 11:15:00 99 % [facility] respiratory rate 2021-11-13 11:15:00 16 /min Comm on [facility] blood pressure 2021-11-13 11:15:00 132 mm[Hg] Common [facility] - systolic [facility] blood pressure 2021-11-13 11:15:00 60 mm[Hg] Common [facility] - diastolic [facility] height 2021-09-10 08:50:00 66 [in_i] Common [facility] weight 2021-09-10 08:50:00 168.2 [lb_av] [facility] temperature 2021-09-10 08:50:00 97.3 [degF] [facility] bmi 2021-09-10 08:50:00 27.15 kg/m2 [facility] oximetry 2021-09-10 08:50:00 98 % [facility] respiratory rate 2021-09-10 08:50:00 18 /min Comm on [facility] blood pressure 2021-09-10 08:50:00 144 mm[Hg] Common [facility] - systolic [facility] blood pressure 2021-09-10 08:50:00 67 mm[Hg] Common [facility] - diastolic [facility] height 2021-09-10 09:10:00 66 [in_i] [facility] weight 2021-09-10 09:10:00 168.2 [lb_av] Common [facility] temperature 2021-09-10 09:10:00 97.3 [degF] [facility] bmi 2021-09-10 09:10:00 27.15 kg/m2 [facility] oximetry 2021-09-10 09:10:00 98 % Common [facility] respiratory rate 2021-09-10 09:10:00 18 /min Comm on [facility] blood pressure 2021-09-10 09:10:00 144 mm[Hg] Common [facility] - systolic [facility] blood pressure 2021-09-10 09:10:00 67 mm[Hg] Common [facility] - diastolic [facility] height 2021-09-04 11:30:00 66 [in_i] Common [facility] weight 2021-09-04 11:30:00 165 [lb_av] [facility] temperature 2021-09-04 11:30:00 97.3 [degF] Common S [facility] bmi 2021-09-04 11:30:00 26.63 kg/m2 Common [facility] oximetry 2021-09-04 11:30:00 98 % [facility] respiratory rate 2021-09-04 11:30:00 18 /min Comm on [facility] blood pressure 2021-09-04 11:30:00 131 mm[Hg] Common [facility] - systolic [facility] blood pressure 2021-09-04 11:30:00 61 mm[Hg] Common [facility] - diastolic [facility] height 2021-08-24 16:30:00 66 [in_i] Common S [facility] weight 2021-08-24 16:30:00 167.8 [lb_av] Common [facility] temperature 2021-08-24 16:30:00 97.7 [degF] Common [facility]irit [facility] bmi 2021-08-24 16:30:00 27.08 kg/m2 [facility] oximetry 2021-08-24 16:30:00 95 % [facility] respiratory rate 2021-08-24 16:30:00 18 /min Comm on [facility] blood pressure 2021-08-24 16:30:00 146 mm[Hg] Common [facility] - systolic [facility] blood pressure 2021-08-24 16:30:00 69 mm[Hg] Common [facility] - diastolic [facility] height 2021-06-26 09:40:00 66 [in_i] Common [facility] weight 2021-06-26 09:40:00 162.8 [lb_av] [facility] temperature 2021-06-26 09:40:00 97.3 [degF] [facility] bmi 2021-06-26 09:40:00 26.27 kg/m2 [facility] oximetry 2021-06-26 09:40:00 96 % [facility] 2021-06-26 09:40:00 123 mm[Hg] Common [facility] - systolic [facility] blood pressure 2021-06-26 09:40:00 62 mm[Hg] Common [facility] - diastolic [facility] Systolic (mm Hg) 2023-06-10 15:53:00 Oleg Kline Diastolic (mm Hg) 2023-06-10 15:53:00 [facility] Heart Rate 2023-06-10 15:53:00 [facility] Height 2023-06-10 15:53:00 5 [ft_i] [facility] Weight 2023-06-10 15:53:00 [facility] BMI Calculated 2023-06-10 15:53:00 [facility] Systolic (mm Hg) 2023-02-04 14:51:00 Oleg rial [facility] Diastolic (mm Hg) 2023-02-04 14:51:00 Mem [facility] Heart Rate 2023-02-04 14:51:00 [facility] Height 2023-02-04 14:51:00 5 [ft_i] [facility] Weight 2023-02-04 14:51:00 [facility] BMI Calculated 2023-02-04 14:51:00 [facility] Systolic (mm Hg) 2022-12-09 16:25:00 Oleg rial [facility] Diastolic (mm Hg) 2022-12-09 16:25:00 Mem [facility] Heart Rate 2022-12-09 16:25:00 [facility] Height 2022-12-09 16:25:00 5 [ft_i] [facility] Weight 2022-12-09 16:25:00 [facility] BMI Calculated 2022-12-09 16:25:00 Mem[facility] Systolic (mm Hg) 2022-10-28 19:19:00 Oleg rial Eliud Diastolic (mm Hg) 2022-10-28 19:19:00 Mem o[facility] Heart Rate 2022-10-28 19:19:00 [facility] Height 2022-10-28 19:19:00 5 [ft_i] [facility] Weight 2022-10-28 19:19:00 [facility] BMI Calculated 2022-10-28 19:19:00 [facility] Procedures Procedure Date / Time Performed Performing Clinician Sourc e PVR 2022-12-23 00:00:00 [facility] Encounters Start End Encounter Admission Attending Care Care Encounter Source Date/Time Date/Time Type Type Clinicians Facility Department ID 2023-07-25 Outpatient Mark [facility] [id number] Common 10:20:00 Ari 13917 [facility] 2023-05-25 Outpatient Flores, STLMLC STLMLC [id number] Common 13:22:00 Ari [id number] [facility] 2023-05-23 Outpatient Flores, STLMLC STLMLC [id number] Common 14:14:00 Ari 54073 [facility] 2023-03-23 Outpatient Flores, STLMLC STLMLC [id number] Common 16:40:00 Ari 80831 [facility] 2023-03-11 Outpatient Flores, STLMLC STLMLC [id number] Common 10:30:00 Ari 94934 [facility] 2022-10-04 Outpatient Flores, STLMLC STLMLC [id number] Common 09:26:00 Ari 14498 [facility] 2022-06-15 Outpatient Flores, STLMLC STLMLC [id number] Common 16:26:00 Ari 78262 [facility] 2022-06-01 Outpatient Flores, STLMLC STLMLC [id number] Common 10:35:01 Ari [facility] 2022-04-08 Outpatient Flores, STLMLC STLMLC [id number] Common 10:53:00 Ari 12021 [facility] 2022-03-01 Outpatient Flores, STLMLC STLMLC [id number] Common 09:02:00 Ari [facility] 2022-02-15 Outpatient Flores, STLMLC STLMLC [id number] Common 10:50:01 Ari [facility] 2021-11-18 Outpatient Flores, STLMLC STLMLC [id number] Common 08:43:01 Ari [facility] 2021-11-16 Outpatient Folres, STLMLC STLMLC [id number] Common 11:47:00 Ari [facility] 2021-11-12 Outpatient Flores, STLMLC STLMLC [id number] Common 14:19:00 Ari [facility] 2021-09-16 Outpatient Flores, STPAVELLC STLC [id number] Common 14:30:48 Ari [facility] 2021-09-16 Outpatient Flores, STPAVELLC STLC [id number] Common 14:08:53 Ari 32115 [facility] 2021-09-16 Outpatient Flores, STPAVELLC STLC [id number] Common 13:51:26 Ari 86932 [facility] 2021-09-16 Outpatient Flores, STPAVELLC STLC [id number] Common 13:50:30 Ari 70256 [facility] 2021-09-16 Outpatient Sailaja, STDARCI STLC [id number] Common 13:49:26 Jammie 62612 [facility] 2021-09-16 Outpatient Sailaja, STDARCI STLC [id number] Common 12:45:44 Jammie [id number] [facility] 2021-09-16 Outpatient Sailaja, STDARCI STLC [id number] Common 12:43:09 Jammie [id number] [facility] 2023-09-09 2023-09-09 Outpatient MHIE MHIE [id number] Memoria 13:15:00 13:15:00 05 brina Kline 2023-07-05 2023-07-05 Ambulatory MHIE MNA [id number] Memoria 16:00:00 16:00:00 Pre-Reg Neurology 03 brina Kline 2023-07-05 2023-07-05 Outpatient MHIE MHIE [id number] Memoria 10:00:00 10:00:00 03 brina Kline 2023-07-05 2023-07-05 Outpatient LIVIER Mojica [id number] 10:00:00 10:00:00 Rodolfo Mcwilliams 2023-06-10 2023-06-11 Outpatient MHIE MNA [id number] Memoria 15:45:00 04:59:59 Neurology 04 l Chente Kline 2023-06-10 2023-06-10 Outpatient LIVIER Mojica MISCHER [id number] 10:45:00 23:59:59 Rodolfo Hector Mcwilliams 2023-06-10 2023-06-10 Outpatient MHIE MHIE [id number] Memoria 10:45:00 10:45:00 04 brina Eliud 2023-02-23 2023-02-23 ([place]) Nurse STLMLC STLMLC [id number] Common 00:00:00 00:00:00 Visit [facility] 2023-02-15 2023-02-15 ([place]) Nurse STLMLC STLMLC [id number] Common 00:00:00 00:00:00 Visit [facility] 2023-02-10 2023-02-10 (TEL) STLMLC STLMLC [id number] Co mmon 00:00:00 00:00:00 [facility] 2023-02-08 2023-02-08 ([place]) Nurse STLMLC STLMLC [id number] Common 00:00:00 00:00:00 Visit [facility] 2023-02-04 2023-02-05 Outpatient MHIE MNA [id number] Memoria 15:00:00 04:59:59 Neurology 02 brina Kline 2023-02-04 2023-02-04 [id number] 10:00:00 23:59:59 Rodolfo Tita Mcwilliams 2023-02-04 2023-02-04 Outpatient MHIE MHIE [id number] Memoria 10:00:00 10:00:00 02 brina Eliud 2023-02-01 2023-02-01 ([place]) Nurse STLC STLC [id number] Common 00:00:00 00:00:00 Visit [facility] 2022-12-23 2022-12-23 OFFICE STLMLC STLMLC [id number] Co mmon 00:00:00 00:00:[address] 2022-12-20 2022-12-20 (IN/ASP) STLMLC STLMLC [id number] C ommon 00:00:00 00:00:00 INJ [facility] 2022-12-09 2022-12-10 Outpatient MHIE MNA [id number] Memoria 16:45:00 04:59:59 Neurology 01 l Chente Kline 2022-12-10 2022-12-10 (IN/ASP) STLMLC STLMLC [id number] C ommon 00:00:00 00:00:00 INJ [facility] 2022-12-09 2022-12-09 Outpatient LIVIER MojicaSCHАНДРЕЙ [id number] 11:45:00 23:59:59 Rodolfo 01 Oj 2022-12-09 2022-12-09 Outpatient MHIE MHIE [id number] Memoria 11:45:00 11:45:00 01 brina Eliud 2022-12-02 2022-12-02 (IN/ASP) STLMLC STLMLC [id number] C ommon 00:00:00 00:00:00 INJ [facility] 2022-11-29 2022-11-29 (TEL) STLMLC STLMLC [id number] Co mmon 00:00:00 00:00:00 [facility] 2022-11-09 2022-11-09 (TEL) STLMLC STLMLC [id number] Co mmon 00:00:00 00:00:00 [facility] 2022-11-04 2022-11-04 OFFICE STLMLC STLMLC [id number] Co mmon 00:00:00 00:00:00 VISIT [facility] ESTAB PT - CHI LEVEL 2 [facility] 2022-10-28 2022-10-29 Outpatient MHIE MNA [id number] Memoria 19:30:00 05:59:59 Neurology 00 l Chente Herzogann 2022-10-28 2022-10-28 Outpatient LIVIER MojicaSCHАНДРЕЙ [id number] 13:30:00 23:59:59 Rodolfo 00 Oj 2022-10-28 2022-10-28 Outpatient MHIE MHIE [id number] Memoria 13:30:00 13:30:00 00 brina Kline 2022-10-06 2022-10-06 OFFICE STLMLC STLMLC [id number] Co mmon 00:00:00 00:00:00 VISIT [facility] ESTAB PT - CHI LEVEL 3 [facility] 2022-10-04 2022-10-04 (TEL) STLMLC STLMLC [id number] Co mmon 00:00:00 00:00:00 [facility] 2022-10-04 2022-10-04 (TEL) STLMLC STLMLC [id number] Co mmon 00:00:00 00:00:00 [facility] 2022-09-15 2022-09-15 OFFICE STLMLC STLMLC [id number] Co mmon 00:00:00 00:00:00 VISIT [facility] PT - CHI LEVEL 4 [facility] 2022-09-15 2022-09-15 SUB ANNUAL STLMLC STLMLC [id number] Common 00:00:00 00:00:00 MCR [facility] WELLNESS - [facility] VISIT [facility] 2022-09-15 2022-09-15 (TEL) STLMLC STLMLC [id number] Co mmon 00:00:00 00:00:00 [facility] 2022-09-02 2022-09-02 (TEL) STLMLC STLMLC [id number] Co mmon 00:00:00 00:00:00 [facility] 2022-08-10 2022-08-10 (TEL) STLMLC STLMLC [id number] Co mmon 00:00:00 00:00:00 [facility] 2022-08-09 2022-08-09 NON-BILLAB STLMLC STLMLC [id number] Common 00:00:00 00:00:00 LE VISIT Spiri t - [facility] 2022-07-14 2022-07-14 (TEL) STLMLC STLMLC [id number] Co mmon 00:00:00 00:00:00 [facility] 2022-07-14 2022-07-14 NON-BILLAB STLMLC STLMLC [id number] Common 00:00:00 00:00:00 LE VISIT [facility] 2022-07-14 2022-07-14 (TEL) STLMLC STLMLC [id number] Co mmon 00:00:00 00:00:00 [facility] 2022-07-12 2022-07-12 (TEL) STLMLC STLMLC [id number] Co mmon 00:00:00 00:00:00 [facility] 2022-07-12 2022-07-12 NON-BILLAB STLMLC STLMLC [id number] Common 00:00:00 00:00:00 LE VISIT [facility] 2022-07-02 2022-07-02 NON-BILLAB STLMLC STLMLC [id number] Common 00:00:00 00:00:00 LE VISIT [facility] 2022-06-17 2022-06-17 (TEL) STLMLC STLMLC [id number] Co mmon 00:00:00 00:00:00 [facility] 2022-06-14 2022-06-14 OFFICE STLMLC STLMLC [id number] Co mmon 00:00:00 00:00:00 VISIT EST Spir it PT LEVEL 3 [facility] 2022-06-10 2022-06-10 OFFICE STLMLC STLMLC [id number] Co mmon 00:00:00 00:00:00 VISIT EST Spir it PT LEVEL 3 [facility] 2022-05-20 2022-05-20 (TEL) STLMLC STLMLC [id number] Co mmon 00:00:00 00:00:00 [facility] 2022-05-18 2022-05-18 (TEL) STLMLC STLMLC [id number] Co mmon 00:00:00 00:00:00 [facility] 2022-05-17 2022-05-17 OFFICE STLMLC STLMLC [id number] Co mmon 00:00:00 00:00:00 VISIT EST Spir it PT LEVEL 3 [facility] 2022-05-11 2022-05-11 (TEL) STLMLC STLMLC [id number] Co mmon 00:00:00 00:00:00 [facility] 2022 2022 (PROC) STLMLC STLMLC [id number] Co mmon 00:00:00 00:00:00 Procedure [facility]ir [facility] - [facility] 2022-04-28 2022-04-28 OFFICE STLMLC STLMLC [id number] Co mmon 00:00:00 00:00:00 VISIT EST Spir it PT LEVEL 3 [facility] 2022-04-22 2022-04-22 (TEL) STLMLC STLMLC [id number] Co mmon 00:00:00 00:00:00 [facility] 2022-04-07 2022-04-07 OFFICE STLMLC STLMLC [id number] Co mmon 00:00:00 00:00:00 VISIT EST Spir it PT LEVEL 3 [facility] 2022-04-05 2022-04-05 (TEL) STLMLC STLMLC [id number] Co mmon 00:00:00 00:00:00 [facility] 2022-04-05 2022-04-05 OFFICE STLMLC STLMLC [id number] Co mmon 00:00:00 00:00:00 VISIT EST Spir it PT LEVEL 3 [facility] 2022-04-05 2022-04-05 (TEL) STLMLC STLMLC [id number] Co mmon 00:00:00 00:00:00 [facility] 2022-03-17 2022-03-17 OFFICE STLMLC STLMLC [id number] Co mmon 00:00:00 00:00:00 VISIT Spirit ESTAB PT - CHI LEVEL 2 [facility] 2022-03-10 2022-03-10 OFFICE STLMLC STLMLC [id number] Co mmon 00:00:00 00:00:00 VISIT [facility] ESTAB PT - CHI LEVEL 4 [facility] 2022-02-24 2022-02-24 (TEL) STLMLC STLMLC [id number] Co mmon 00:00:00 00:00:00 [facility] 2022-02-24 2022-02-24 (IN/ASP) STLMLC STLMLC [id number] C ommon 00:00:00 00:00:00 INJ ASP [facility] 2022-02-15 2022-02-15 (IN/ASP) STLMLC STLMLC [id number] C ommon 00:00:00 00:00:00 INJ ASP [facility] 2022-02-08 2022-02-08 OFFICE STLMLC STLMLC [id number] Co mmon 00:00:00 00:00:00 VISIT EST Spir it PT LEVEL 3 [facility] 2022-01-12 2022-01-12 (TEL) STLMLC STLMLC [id number] Co mmon 00:00:00 00:00:00 [facility] 2022-01-12 2022-01-12 (TEL) STLMLC STLMLC [id number] Co mmon 00:00:00 00:00:00 [facility] 2021-12-23 2021-12-23 (TEL) STLMLC STLMLC [id number] Co mmon 00:00:00 00:00:00 [facility] 2021-12-22 2021-12-22 OFFICE STLMLC STLMLC [id number] Co mmon 00:00:00 00:00:00 VISIT EST Spir it PT LEVEL 3 [facility] 2021-12-07 2021-12-07 (IN/ASP) STLMLC STLMLC [id number] C ommon 00:00:00 00:00:00 INJ ASP [facility] 2021-11-19 2021-11-19 OFFICE STLMLC STLMLC [id number] Co mmon 00:00:00 00:00:00 VISIT EST Spir it PT LEVEL 3 [facility] 2021-11-17 2021-11-17 (TEL) STLMLC STLMLC [id number] Co mmon 00:00:00 00:00:00 [facility] 2021-11-13 2021-11-13 OFFICE STLMLC STLMLC [id number] Co mmon 00:00:00 00:00:00 VISIT EST Spir it PT LEVEL 3 - [facility] 2021-09-21 2021-09-21 (TEL) STLMLC STLMLC [id number] Co mmon 00:00:00 00:00:00 Spirit [facility] 2021-09-15 2021-09-15 (TEL) STLMLC STLMLC [id number] Co mmon 00:00:00 00:00:00 [facility] 2021-09-15 2021-09-15 (INJ) STLMLC STLMLC [id number] Co mmon 00:00:00 00:00:00 Injection [facility] - [facility] 2021-09-10 2021-09-10 OFFICE STLMLC STLMLC [id number] Co mmon 00:00:00 00:00:00 VISIT [facility] ESTAB PT - CHI LEVEL 4 [facility] 2021-09-10 2021-09-10 (TEL) STLMLC STLMLC [id number] Co mmon 00:00:00 00:00:00 [facility] 2021-09-10 2021-09-10 SUB ANNUAL STLMLC STLMLC [id number] Common 00:00:00 00:00:00 MCR [facility] WELLNESS - CHI VISIT [facility] 2021-09-04 2021-09-04 OFFICE STLMLC STLMLC [id number] Co mmon 00:00:00 00:00:00 VISIT [facility] ESTAB PT - CHI LEVEL 2 [facility] 2021-09-04 2021-09-04 (TEL) STLMLC STLMLC [id number] Co mmon 00:00:00 00:00:00 [facility] 2021-08-24 2021-08-24 (PROC) STLMLC STLMLC [id number] Co mmon 00:00:00 00:00:00 Procedure Spir it - [facility] 2021-06-26 2021-06-26 OFFICE STLMLC STLMLC [id number] Co mmon 00:00:00 00:00:00 VISIT EST Spir it PT LEVEL 3 - [facility] 2021-06-24 2021-06-24 (TEL) [facility] [id number] Co mmon 00:00:00 00:00:00 [facility] 2021-05-11 2021-05-11 Outpatient STLC [facility] [id number] Common 00:00:00 00:00:00 [facility] 2021-05-04 2021-05-04 Outpatient [facility] [id number] Common 00:00:00 00:00:00 [facility] 2020-11-17 2020-11-17 Outpatient [facility] [id number] Common 00:00:00 00:00:00 [facility] Results Test Description Test Time Test Comments Results Result Comments Source VITAMIN D, 25 [place] 2023-03-08 00:00:00 Test Item Value Reference Range Interpretation Comme nts VITAMIN D, 25 [place] (test code = 1989-3) 50 NG/ML SEE BELOW NG/ML VITAMIN B 12 AND FOLIC [id number] 00:00:00 Test Item Value Reference Range Interpretation Comments FOLIC ACID (test 15.2 UG/L SEE BELOW UG/L code = 2284-8) VITAMIN B-12 (test 631 PG/ML See_Comment [Automat ed message] The code = 2132-9) system which generated this result tra nsmitted reference range : 200-950 PG/ML. The refe rence range was not u sed to interpret this result as normal/abnormal . Tib Fib RightTib Fib Right
--- NOTE | 2023-07-26 09:25 | EDPHYS ---
Physician Documentation [facility] Name: Angelo Gonzalez Age: 88 yrs Sex: Male : 1935 Arrival Date: 07/26/2023 Time: 08:48 Bed 16 Private MD: ED Physician Kassi Flores HPI: 07/26 09:21 This 88 yrs old Male presents to ER via Ambulatory with complaints of Testicular sp3 Problem - Bleeding/Blood Thinners. 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 approximately 2 hours. Patient put liquid Band-Aid on the area and it has subsided. Patient comes in for evaluation to ensure there is no other intervention that is required. Patient is no bleeding from any other location and therapy no recent dosing changes on his medications. Review of systems, he denies headache, neck pain, chest pain, shortness of breath, abdominal pain, vomiting, diarrhea, melena, dark stools, bleeding, or any other concerning signs or symptoms at this time.. Historical: - Allergies: 09:02 No Known Allergies; ll1 - PMHx: 09:02 BPH; Cancer; bladder; Hypertension; aortic aneurysm; Hypothyroidism; Arthritis; ll1 - Immunization history:: Adult Immunizations up to date. - Social history:: Smoking status: Patient denies any tobacco usage or history of. ROS: 09:22 Constitutional: Negative for fever, chills, and weight loss, Eyes: Negative for injury, sp3 pain, redness, and discharge, ENT: Negative for injury, pain, and discharge, Neck: Negative for injury, pain, and swelling, Cardiovascular: Negative for chest pain, palpitations, and edema, Respiratory: Negative for shortness of breath, cough, wheezing, and pleuritic chest pain, Abdomen/GI: Negative for abdominal pain, nausea, vomiting, diarrhea, and constipation, Back: Negative for injury and pain, : Negative for injury, bleeding, discharge, and swelling, MS/Extremity: Negative for injury and deformity, Neuro: Negative for headache, weakness, numbness, tingling, and seizure, Psych: Negative for depression, anxiety, suicide ideation, homicidal ideation, and hallucinations, Allergy/Immunology: Negative for hives, rash, and allergies, Endocrine: Negative for neck swelling, polydipsia, polyuria, polyphagia, and marked weight changes, 09:22 All other systems are negative, Exam: 09:23 Constitutional: This is a well developed, well nourished patient who is awake, alert, sp3 and in no acute distress. Cardiovascular: Regular rate and rhythm with a normal S1 and S2. No gallops, murmurs, or rubs. Normal PMI, no JVD. No pulse deficits. Respiratory: Lungs have equal breath sounds bilaterally, clear to auscultation and percussion. No rales, rhonchi or wheezes noted. No increased work of breathing, no retractions or nasal flaring. Abdomen/GI: Soft, non-tender, with normal bowel sounds. No distension or tympany. No guarding or rebound. No evidence of tenderness throughout. MS/ Extremity: Pulses equal, no cyanosis. Neurovascular intact. Full, normal range of motion. 09:23 : Patient has 1 cm x 1 cm area of abrasion on the right side of medial anterior testicle with no active bleeding. Dried blood is present. Testicular exam and penile exam is otherwise normal. There is no blood at the meatus patient is circumcised., Vital Signs: 09:02 BP 153 / 60; Pulse 52; Resp 17; Temp 97.5; Pulse Ox 100% ; Pain 0/10; ll1 09:02 Pain Scale: Adult ll1 MDM: 09:09 Patient medically screened. sp3 09:23 Data reviewed: vital signs, nurses notes. ED course: Bleeding is stopped. No further sp3 intervention is required. If bleeding continues again, patient is to return and we will apply silver nitrate to help ease the bleeding.. Administered Medications: No medications were administered Disposition Summary: 07/26/23 09:24 Discharge Ordered Notes: Location: Home sp3 Condition: Stable sp3 Diagnosis - Scrotal abrasion, bleeding on Eliquis sp3 Followup: sp3 - With: Private Physician - When: Upon discharge from the Emergency Department - Reason: Continuance of care Discharge Instructions: - Discharge Summary Sheet sp3 - Abrasion sp3 Forms: - Medication Reconciliation Form sp3 - Thank You Letter sp3 - Antibiotic Education sp3 - Prescription Opioid Use sp3 - Patient Portal Instructions sp3 - Leadership Thank You Letter sp3 Signatures: Clarence Sesay, DANK RN ll1 Kassi Flores MD MD sp3
--- NOTE | 2023-07-26 09:25 | ER ---
Nurse's Notes [facility] Name: Angelo Gonzalez Age: 88 yrs Sex: Male : 1935 Arrival Date: 07/26/2023 Time: 08:48 Bed 16 Private MD: Diagnosis: Scrotal abrasion, bleeding on Eliquis Presentation: 07/26 09:15 Chief complaint: Patient states: Awoke with bleeding to testicle area. On blood ll1 thinners. Coronavirus screen: Client denies travel out of the [place] in the last 14 days. At this time, the client does not indicate any symptoms associated with coronavirus-19. Ebola Screen: Patient denies travel to an Ebola-affected area in the 21 days before illness onset. Initial Sepsis Screen: Does the patient meet any 2 criteria? No. Patient's initial sepsis screen is negative. Does the patient have a suspected source of infection? Yes: Skin breakdown/wound. Risk Assessment: Do you want to hurt yourself or someone else? Patient reports no desire to harm self or others. Onset of symptoms was July 26, 2023. 09:15 Method Of Arrival: Ambulatory ll1 09:15 Acuity: ARMIDA 3 ll1 Historical: - Allergies: 09:02 No Known Allergies; ll1 - PMHx: 09:02 BPH; Cancer; bladder; Hypertension; aortic aneurysm; Hypothyroidism; Arthritis; ll1 - Immunization history:: Adult Immunizations up to date. - Social history:: Smoking status: Patient denies any tobacco usage or history of. Screenin:24 [facility] ED Fall Risk Assessment (Adult) Score/Fall Risk Level 0 - 2 = Low Risk nj1 Oriented to surroundings, Maintained a safe environment, Hourly rounding (assess needs \T\ fall precautionary measures) done. Abuse screen: Denies threats or abuse. Denies injuries from another. Nutritional screening: No deficits noted. Tuberculosis screening: No symptoms or risk factors identified. Assessment: 09:10 General: Appears in no apparent distress. comfortable, Behavior is calm, cooperative, nj1 appropriate for age. Pain: Denies pain. Neuro: Level of Consciousness is awake, alert, obeys commands, Oriented to person, place, time, situation. Cardiovascular: Patient's skin is warm and dry. Respiratory: Airway is patent Respiratory effort is even, unlabored. : Reports testicular bleeding from scratch. Vital Signs: 09:02 BP 153 / 60; Pulse 52; Resp 17; Temp 97.5; Pulse Ox 100% ; Pain 0/10; ll1 09:02 Pain Scale: Adult ll1 ED Course: 08:54 Patient arrived in ED. mg5 09:08 Kassi Flores MD is Attending Physician. sp3 09:14 Lyric Conley, RN is Primary Nurse. nj1 09:15 Triage completed. ll1 09:15 Arm band placed on. ll1 09:25 Patient has correct armband on for positive identification. Bed in low position. Call nj1 light in reach. Adult w/ patient. 09:25 No provider procedures requiring assistance completed. Patient did not have IV access nj during this emergency room visit. 09:36 Provided Education on: discharge instructions. nj1 Administered Medications: No medications were administered Medication: 09:25 VIS not applicable for this client. nj1 Outcome: 09:24 Discharge ordered by . sp3 09:25 Discharged to home ambulatory, with family, [facility] 09:25 Condition: stable 09:25 Discharge instructions given to patient, family, Instructed on discharge instructions, follow up and referral plans. Demonstrated understanding of instructions, follow-up care, 09:36 Patient left the ED. nj1 Signatures: Clarence Sesay RN RN [facility] Kassi Flores MD MD 3 Lyric Conley RN RN [facility] [place] [id number]
[2023-07-26 09:45] VITALS: BP 153/60; TEMP 97.5; O2SAT 100
== END 2023-07-26 09:36 | disposition home or self-care (01) ==
LOC: ER 08:48
DX: S30.813A Abrasion of scrotum and testes, initial encounter (principal); Z79.01 Long term (current) use of anticoagulants
CPT/HCPCS: 99282

== ENCOUNTER → 2023-09-03 | Emergency (ER) | payer OTHER ==
[~2023-09-03] MED LIST: CEFTRIAXONE 1000 MG/VIAL ONE; CIPROFLOXACIN HCL 500 MG TAB ONE; NA CHLORIDE 0.9% 1,000 ML ONE; NA CHLORIDE 0.9% 500 ML ONE; ONDANSETRON 4 MG/2 ML VIAL ONE
--- NOTE | 2023-09-03 11:55 | RAD REPORT ---
EXAM DESCRIPTION: CT - Stone Protocol - 09/03/2023 11:46 am CLINICAL HISTORY: Flank pain. Abd pain;Flank pain COMPARISON: Abdomen Pelvis Wo Contrast dated 02/08/2017 TECHNIQUE: Axial images were obtained without oral or IV contrast. Lack of contrast limits solid org an and vascular assessment. The [id number] spans the entirety of the system partially obscuring uppermost abdomen and lung bases. Coronal reformatted images were obtained and reviewed. All CT scans are performed using dose optimization technique as appropriate and may include automated exposure control or mA/KV adjustment according to patient size. FINDINGS: Emphysematous and fibrotic lung bases noted. Small hiatal hernia. The liver contains several small low-density lesions. No aggressive liver mass or biliary dilatation. The spleen has a normal size and appearance. The pancreas and adrenal glands are normal. No patholog ic lymphadenopathy in the abdomen or pelvis. No urinary tract stones or obstructive uropathy. Catheter is noted in the urinary bladder. Bladder ap pears largely decompressed. No bowel obstruction, free air, free fluid or abscess. The appendix is not identified as a discrete s tructure, however, no secondary findings of appendicitis are identified. No significant bony abnormality. IMPRESSION: No urinary tract stones or obstructive uropathy. Urinary bladder is largely decompressed by means of a urinary catheter.
[2023-09-03 12:16] LABS: Absolute Lymphocytes (CBC) 1.3 K/uL (0.7-4.9); Lymphocytes % 14.5 % (15.3-44.8); MCV 88.5 fL (80-100); Platelets 216 thou/uL (152-406)
[2023-09-03 12:17] LABS: Specific Gravity 1.006 (1.005-1.030); Urine Bacteria <20 /HPF (<20); Urine Bilirubin NEGATIVE (Negative); Urine Blood 3+ (OVER) (Negative); Urine Clarity Turbid (Clear); Urine Color Light-Orange (Yellow); Urine Glucose NEGATIVE (Negative); Urine Mucus Slight /HPF (None Seen); Urine Protein 1+ (Negative); Urine RBC 21-50 /HPF (None Seen); Urine Urobilinogen Normal (Normal)
[2023-09-03 12:31] LABS: Albumin 3.7 g/dL (3.4-5.0); Bilirubin Total 0.8 mg/dL (0.2-1.0); Potassium 3.7 mEq/L (3.5-5.1); Protein, Total 7.5 g/dL (6.4-8.2)
--- NOTE | 2023-09-03 13:34 | EDPHYS ---
Physician Documentation [facility] Name: Angelo Gonzalez Age: 88 yrs Sex: Male : 1935 Arrival Date: 09/03/2023 Time: 11:11 Bed 18 Private MD: LATIA Physician Julio Cesar Sullivan HPI: 09/03 13:26 This 88 yrs old Male presents to ER via Ambulatory with complaints of Urinary wyatt Problem, Blood in urine. 13:26 The patient presents with urinary symptoms, dysuria. Onset: The symptoms/episode wyatt began/occurred 2 day(s) ago. Modifying factors: The symptoms are alleviated by nothing, the symptoms are aggravated by nothing. Associated signs and symptoms: The patient has no apparent associated signs or symptoms. Severity of symptoms: At their worst the symptoms were mild, in the emergency department the symptoms are unchanged. The patient has not experienced similar symptoms in the past. Historical: - Allergies: 11:58 No Known Allergies; nj1 - Home Meds: 13:25 Ossian Thyroid Oral [Active]; bisoprolol fumarate 5 mg Oral tablet [Active]; Breo hb Ellipta inhalation [Active]; donepezil 5 mg Oral tablet [Active]; esomeprazole magnesium oral [Active]; Myrbetriq 50 mg Oral Tablet [Active]; Plavix 75 mg Oral tablet [Active]; prednisone 10 mg Oral Tablet [Active]; tamsulosin 0.4 mg Oral capsule [Active]; - PMHx: 11:58 aortic aneurysm; Arthritis; BPH; Cancer; bladder; Hypothyroidism; Hypertension; nj1 - Immunization history:: Client reports receiving the 2nd dose of the Covid vaccine. - Social history:: Smoking status: Patient denies any tobacco usage or history of. ROS: 13:28 Constitutional: Negative for fever, chills, and weight loss, Eyes: Negative for injury, wyatt pain, redness, and discharge, ENT: Negative for injury, pain, and discharge, Neck: Negative for injury, pain, and swelling, Cardiovascular: Negative for chest pain, palpitations, and edema, Respiratory: Negative for shortness of breath, cough, wheezing, and pleuritic chest pain, Back: Negative for injury and pain, MS/Extremity: Negative for injury and deformity, Skin: Negative for injury, rash, and discoloration, Neuro: Negative for headache, weakness, numbness, tingling, and seizure, Psych: Negative for depression, anxiety, suicide ideation, homicidal ideation, and hallucinations, Allergy/Immunology: Negative for hives, rash, and allergies, Endocrine: Negative for neck swelling, polydipsia, polyuria, polyphagia, and marked weight changes, Hematologic/Lymphatic: Negative for swollen nodes, abnormal bleeding, and unusual bruising, 13:28 Abdomen/GI: Positive for abdominal pain, 13:28 : Positive for hematuria, haider, Exam: 13:29 Constitutional: This is a well developed, well nourished patient who is awake, alert, wyatt and in no acute distress. Head/Face: Normocephalic, atraumatic. Eyes: Pupils equal round and reactive to light, extra-ocular motions intact. Lids and lashes normal. Conjunctiva and sclera are non-icteric and not injected. Cornea within normal limits. Periorbital areas with no swelling, redness, or edema. ENT: Nares patent. No nasal discharge, no septal abnormalities noted. Tympanic membranes are normal and external auditory canals are clear. Oropharynx with no redness, swelling, or masses, exudates, or evidence of obstruction, uvula midline. Mucous membranes moist. Neck: Trachea midline, no thyromegaly or masses palpated, and no cervical lymphadenopathy. Supple, full range of motion without nuchal rigidity, or vertebral point tenderness. No Meningismus. Chest/axilla: Normal chest wall appearance and motion. Nontender with no deformity. No lesions are appreciated. Cardiovascular: Regular rate and rhythm with a normal S1 and S2. No gallops, murmurs, or rubs. Normal PMI, no JVD. No pulse deficits. Respiratory: Lungs have equal breath sounds bilaterally, clear to auscultation and percussion. No rales, rhonchi or wheezes noted. No increased work of breathing, no retractions or nasal flaring. Abdomen/GI: Soft, non-tender, with normal bowel sounds. No distension or tympany. No guarding or rebound. No evidence of tenderness throughout. Back: No spinal tenderness. No costovertebral tenderness. Full range of motion. Skin: Warm, dry with normal turgor. Normal color with no rashes, no lesions, and no evidence of cellulitis. MS/ Extremity: Pulses equal, no cyanosis. Neurovascular intact. Full, normal range of motion. Neuro: Awake and alert, GCS 15, oriented to person, place, time, and situation. Cranial nerves II-XII grossly intact. Motor strength 5/5 in all extremities. Sensory grossly intact. Cerebellar exam normal. Normal gait. Psych: Awake, alert, with orientation to person, place and time. Behavior, mood, and affect are within normal limits. 13:29 : CVA tenderness, is absent, Male external genitalia: normal, Bladder: is normal, non-distended, non-tender, Sexual behavior: the patient is not sexually active, a haider is noted, Vital Signs: 11:00 BP 129 / 62; Pulse 68; Resp 18; Pulse Ox 99% on R/A; ne1 11:55 BP 121 / 84; Pulse 43; Resp 17; Pulse Ox 100% ; Weight 72.57 kg; Height 5 ft. 6 in. ; nj1 12:01 BP 140 / 71; Pulse 78; Resp 16; Pulse Ox 99% on R/A; ne1 13:57 BP 123 / 60; Pulse 64; Resp 18; Pulse Ox 100% on R/A; ne1 11:55 Body Mass Index 25.82 (72.57 kg, 167.64 cm) wi1 MDM: 11:16 Patient medically screened. [facility] 13:29 Differential diagnosis: nonspecific abdominal pain, UTI, urinary retention, Haider wyatt catheter problem, prostatitis, urethritis. Data reviewed: vital signs, nurses notes, lab test result(s), radiologic studies, CT scan. Consideration of Admission/Observation Escalation of care including admission/observation considered. I considered the following discharge prescriptions or medication management in the emergency department Medications were administered in the Emergency Department. See MAR. Independent interpretation of the following test(s) in the Emergency Department CT Scan: My interpretation is ct stone, Floey in place , bladder contracted. Test considered but Not performed: Ultrasound no abd usg. Historians other than the Patient: pt well informed. Care significantly affected by the following chronic conditions: Hypertension, bph, cancer, a aneurysm, hypothyroid. Counseling: I had a detailed discussion with the patient and/or guardian regarding the historical points, exam findings, and any diagnostic results supporting the discharge/admit diagnosis, lab results, radiology results, the need for outpatient follow up, for definitive care, a family practitioner, a urologist. 09/03 11:17 Order name: CBC with Diff; Complete Time: 12:19 [facility] 09/03 11:17 Order name: CMP; Complete Time: 13:10 [facility] 09/03 11:17 Order name: Lipase; Complete Time: 13:10 [facility] 09/03 11:17 Order name: Urinalysis w/ reflexes; Complete Time: 12:19 [facility] 09/03 11:17 Order name: CT Stone Protocol; Complete Time: 12:19 [facility] 09/03 11:17 Order name: IV Saline Lock; Complete Time: 12:08 [facility] 09/03 11:17 Order name: Labs collected and sent; Complete Time: 12:08 [facility] Administered Medications: 12:18 Drug: Ondansetron IVP 4 mg IVP once; over 2 minutes Route: IVP; Site: right antecubital;me1 13:32 Follow up: Response: No adverse reaction; Nausea is decreased me1 12:18 Drug: NS 0.9% IV 1000 ml IV at 125 ml/hr continuous Route: IV; Rate: 125 ml/hr; Site: me1 right antecubital; 13:58 Follow up: IV Status: Completed infusion me1 12:18 Drug: NS 0.9% IV 500 ml IV at bolus once Route: IV; Rate: bolus; Site: right me1 antecubital; 13:58 Follow up: IV Status: Completed infusion me1 12:18 Drug: Rocephin IV 1 grams IV at per protocol once; Given slow IV push per pharmacy me1 instructions Route: IV; Rate: per protocol; Site: right antecubital; 12:20 Follow up: Response: No adverse reaction; IV Status: Completed infusion me1 13:32 Follow up: Response: No adverse reaction me1 13:45 Drug: Ciprofloxacin PO 500 mg PO once Route: PO; me1 13:58 Follow up: Response: No adverse reaction me1 Disposition Summary: 09/03/23 13:33 Discharge Ordered Notes: Location: Home wyatt Problem: new wyatt Symptoms: have improved wyatt Condition: Stable wyatt Diagnosis - Hematuria, unspecified wyatt - Mechanical complication of urinary (indwelling) catheter wyatt Followup: wyatt - With: Private Physician - When: 2 - 3 days - Reason: Recheck today's complaints, Continuance of care, Re-evaluation by your physician Followup: wyatt - With: Landry Michael MD - When: 2 - 3 days - Reason: Recheck today's complaints, Continuance of care, Re-evaluation by your physician Discharge Instructions: - Discharge Summary Sheet wyatt - Indwelling Urinary Catheter Care, Adult wyatt - Hematuria, Adult wyatt - Urinary Tract Infection, Adult wyatt - Urinary Tract Infection, Adult, [id number] wyatt - Indwelling Urinary Catheter Care, Adult, [id number] [facility] Forms: - Medication Reconciliation Form [facility] - Thank You Letter wyatt - Antibiotic Education wyatt - Prescription Opioid Use wyatt - Patient Portal Instructions [facility] - Leadership Thank You Letter [facility] Prescriptions: - Cipro 250 mg Oral tablet - take 1 tablet ORAL route every 12 hours; 14 tablet; Refills: 0, Product [facility] Selection Permitted Signatures: Dispatcher [employer] EDJulio Cesar eFrnandez MD MD cha Baxter, Heather, RN RN Lyric Conley RN RN nj1 Kaila Steiner RN RN me1
--- NOTE | 2023-09-03 13:34 | ER ---
Nurse's Notes [facility] Name: Angelo Gonzalez Age: 88 yrs Sex: Male : 1935 Arrival Date: 09/03/2023 Time: 11:11 Bed 18 Private MD: Diagnosis: Hematuria, unspecified;Mechanical complication of urinary (indwelling) catheter Presentation: 09/03 11:55 Chief complaint: Patient states: Blood in urine since when a catheter was put nj1 in by urologist, getting worse, has clots in it. Advised to come to ED by urologist office. Coronavirus screen: Vaccine status: Patient reports receiving the 2nd dose of the covid vaccine. Ebola Screen: Patient denies travel to an Ebola-affected area in the 21 days before illness onset. Initial Sepsis Screen: Does the patient meet any 2 criteria? No. Patient's initial sepsis screen is negative. Does the patient have a suspected source of infection? No. Patient's initial sepsis screen is negative. Risk Assessment: Do you want to hurt yourself or someone else? Patient reports no desire to harm self or others. Onset of symptoms was September 01, 2023. 11:55 Method Of Arrival: Ambulatory nj 11:55 Acuity: ARMIDA 3 nj1 Historical: - Allergies: 11:58 No Known Allergies; nj1 - Home Meds: 13:25 Bryant Thyroid Oral [Active]; bisoprolol fumarate 5 mg Oral tablet [Active]; Breo hb Ellipta inhalation [Active]; donepezil 5 mg Oral tablet [Active]; esomeprazole magnesium oral [Active]; Myrbetriq 50 mg Oral Tablet [Active]; Plavix 75 mg Oral tablet [Active]; prednisone 10 mg Oral Tablet [Active]; tamsulosin 0.4 mg Oral capsule [Active]; - PMHx: 11:58 aortic aneurysm; Arthritis; BPH; Cancer; bladder; Hypothyroidism; Hypertension; nj1 - Immunization history:: Client reports receiving the 2nd dose of the Covid vaccine. - Social history:: Smoking status: Patient denies any tobacco usage or history of. Screenin:05 [facility] ED Fall Risk Assessment (Adult) History of falling in the last 3 months, me1 including since admission No falls in past 3 months (0 pts) Confusion or Disorientation No (0 pts) Intoxicated or Sedated No (0 pts) Impaired Gait Yes (1 pt) Mobility Assist Device Used Yes (1 pt) Altered Elimination Yes (1 pt) Score/Fall Risk Level 0 - 2 = Low Risk Maintained a safe environment, Provided non-skid footwear, Hourly rounding (assess needs \T\ fall precautionary measures) done. Abuse screen: Denies threats or abuse. Nutritional screening: No deficits noted. Tuberculosis screening: No symptoms or risk factors identified. Assessment: 12:05 General: Appears comfortable, well groomed, well developed, well nourished, Behavior is me1 calm, cooperative, appropriate for age, Reports Blood in urine since when a catheter was put in by urologist, getting worse, has clots in it. Advised to come to ED by urologist office. 12:05 Pain: Denies pain. Neuro: Level of Consciousness is awake, alert, obeys commands, me1 Oriented to person, place, time, situation, Appropriate for age. Cardiovascular: Capillary refill < 3 seconds Patient's skin is warm and dry. Respiratory: Airway is patent Respiratory effort is even, unlabored, Respiratory pattern is regular, symmetrical. : Owens in place Urine is blood tinged. Vital Signs: 11:00 BP 129 / 62; Pulse 68; Resp 18; Pulse Ox 99% on R/A; me1 11:55 BP 121 / 84; Pulse 43; Resp 17; Pulse Ox 100% ; Weight 72.57 kg; Height 5 ft. 6 in. ; nj1 12:01 BP 140 / 71; Pulse 78; Resp 16; Pulse Ox 99% on R/A; me1 13:57 BP 123 / 60; Pulse 64; Resp 18; Pulse Ox 100% on R/A; me1 11:55 Body Mass Index 25.82 (72.57 kg, 167.64 cm) nj1 ED Course: 11:14 Patient arrived in ED. ts1 11:16 Julio Cesar Sullivan MD is Attending Physician. wyatt 11:30 Patient's name was called from ER lobby. No response. nj1 11:48 CT Stone Protocol In Process Unspecified. EDMS 11:58 Triage completed. nj1 11:59 Kaila Steiner, DANK is Primary Nurse. me1 12:05 Patient has correct armband on for positive identification. Bed in low position. Call me1 light in reach. Side rails up X2. Provided Education on: POC. Verbalized understanding. . 12:05 No provider procedures requiring assistance completed. me1 12:08 CBC with Diff Sent. bc6 12:08 CMP Sent. bc6 12:08 Lipase Sent. bc6 12:08 Urinalysis w/ reflexes Sent. bc6 12:08 Inserted saline lock: 22 gauge in right antecubital area, using aseptic technique. bc6 Blood collected. 13:32 Landry Michael MD is Referral Physician. [facility] 13:57 Arm band placed on Patient placed in waiting room. me1 13:57 IV discontinued, intact, bleeding controlled, No redness/swelling at site. Pressure me1 dressing applied. Administered Medications: 12:18 Drug: Ondansetron IVP 4 mg IVP once; over 2 minutes Route: IVP; Site: right antecubital;me1 13:32 Follow up: Response: No adverse reaction; Nausea is decreased me1 12:18 Drug: NS 0.9% IV 1000 ml IV at 125 ml/hr continuous Route: IV; Rate: 125 ml/hr; Site: ia1 right antecubital; 13:58 Follow up: IV Status: Completed infusion me1 12:18 Drug: NS 0.9% IV 500 ml IV at bolus once Route: IV; Rate: bolus; Site: right me1 antecubital; 13:58 Follow up: IV Status: Completed infusion me1 12:18 Drug: Rocephin IV 1 grams IV at per protocol once; Given slow IV push per pharmacy me1 instructions Route: IV; Rate: per protocol; Site: right antecubital; 12:20 Follow up: Response: No adverse reaction; IV Status: Completed infusion me1 13:32 Follow up: Response: No adverse reaction me1 13:45 Drug: Ciprofloxacin PO 500 mg PO once Route: PO; me1 13:58 Follow up: Response: No adverse reaction me1 Medication: 12:05 VIS not applicable for this client. me1 Outcome: 13:33 Discharge ordered by . [facility] 13:57 Discharged to home ambulatory, me1 13:57 Condition: stable 13:57 Discharge instructions given to patient, Instructed on discharge instructions, follow up and referral plans. medication usage, Demonstrated understanding of instructions, follow-up care, medications, Prescriptions given X 1, 13:58 Patient left the ED. me1 Signatures: Dispatcher [employer] Julio Cesar Bobby MD MD cha Baxter, Heather, RN RN GloriagabyCarleen bc6 Lyric Conley RN RN nj1 Cori Smith PAS PAS ts1 aKila tSeiner, DANK RN me1 Corrections: (The following items were deleted from the chart) 11:58 11:55 Pulse 43bpm; Resp 17bpm; Pulse Ox 100%; 72.57 kg; Height 5 ft. 6 in.; BMI: 25.8; nj1 nj1 13:53 11:55 Chief complaint: Patient states: Blood in urine since when a catheter me1 was put in by urologist, getting worse, has clots in it. Advised to come to ED by urologist office. nj1
[2023-09-03 14:25] VITALS: O2SAT 100
[2023-09-03 14:38] VITALS: BP 123/60
== END ==
LOC: ER 11:11
DX: T83.098A Other mechanical complication of other urinary catheter, initial encounter (principal); I10 Essential (primary) hypertension; Z85.51 Personal history of malignant neoplasm of bladder; Z79.01 Long term (current) use of anticoagulants
CPT/HCPCS: 96361; 85025; 81001; 36415; 83690; 80053; 76377; 74176; 96375; 96374; 99284; J2405; J7040; J7030; J0696

== ENCOUNTER → 2023-09-05 | Emergency (ER) | payer OTHER ==
[~2023-09-05] MED LIST changes: -CEFTRIAXONE 1000 MG/VIAL ONE; -CIPROFLOXACIN HCL 500 MG TAB ONE; +LACTULOSE 20 GM/30 ML UCUP ONE; -NA CHLORIDE 0.9% 1,000 ML ONE; -NA CHLORIDE 0.9% 500 ML ONE; -ONDANSETRON 4 MG/2 ML VIAL ONE
--- NOTE | 2023-09-05 23:02 | ER ---
Nurse's Notes [facility] Name: Angelo Gonzalez Age: 88 yrs Sex: Male : 1935 Arrival Date: 09/05/2023 Time: 21:52 Bed 5 Private MD: Diagnosis: Constipation, unspecified Presentation: 09/05 22:12 Chief complaint: Patient states: constipation x3 days. Coronavirus screen: At this as6 time, the client does not indicate any symptoms associated with coronavirus-19. Ebola Screen: No symptoms or risks identified at this time. Risk Assessment: Do you want to hurt yourself or someone else? Patient reports no desire to harm self or others. Onset of symptoms was September 02, 2023. 22:12 Method Of Arrival: Ambulatory as6 22:12 Acuity: ARMIDA 3 as6 22:15 Initial Sepsis Screen: Does the patient meet any 2 criteria? No. Patient's initial as6 sepsis screen is negative. Does the patient have a suspected source of infection? No. Patient's initial sepsis screen is negative. Triage Assessment: 22:14 General: Appears in no apparent distress. Behavior is calm, cooperative. Pain: as6 Complains of pain in abdomen. GI: Reports lower abdominal pain, upper abdominal pain, constipation. Historical: - Allergies: 22:13 No Known Allergies; as6 - PMHx: 22:13 aortic aneurysm; Arthritis; BPH; Cancer; bladder; Hypertension; Hypothyroidism; as6 - PSHx: 22:13 None; as6 - Immunization history:: Adult Immunizations up to date. - Social history:: Smoking status: Patient denies any tobacco usage or history of. Screenin:00 [facility] ED Fall Risk Assessment (Adult) History of falling in the last 3 months, rv including since admission No falls in past 3 months (0 pts) Score/Fall Risk Level 0 - 2 = Low Risk Oriented to surroundings, Maintained a safe environment, Educated pt \T\ family on fall prevention, incl call for assistance when getting out of bed, Assessed \T\ reinforced patient's understanding of fall precautions. Abuse screen: Denies threats or abuse. Denies injuries from another. Nutritional screening: No deficits noted. Tuberculosis screening: No symptoms or risk factors identified. Assessment: 23:13 GI: Bowel sounds present X 4 quads. Abd is soft and non tender X 4 quads. rv Vital Signs: 22:14 BP 133 / 94; Pulse 102; Resp 18 S; Temp 98.2(TE); Pulse Ox 96% on R/A; Weight 73.48 kg as6 (R); Height 5 ft. 6 in. (R); Pain 5/10; 23:13 BP 127 / 81; Pulse 81; Resp 17; Temp 98; Pulse Ox 99% on R/A; rv 22:14 Body Mass Index 26.15 (73.48 kg, 167.64 cm) as6 22:14 Pain Scale: Adult as6 ED Course: 21:59 Patient arrived in ED. gm2 22:05 Griffin Kate MD is Attending Physician. ec2 22:13 Triage completed. as6 22:14 Arm band placed on. as6 22:49 Abdomen 1 View XRAY In Process Unspecified. EDMS 23:00 Geoff Howell RN is Primary Nurse. rv 23:00 Patient has correct armband on for positive identification. Client placed on continuous rv cardiac and pulse oximetry monitoring. NIBP monitoring applied. 23:00 No provider procedures requiring assistance completed. rv 23:14 Patient did not have IV access during this emergency room visit. rv Administered Medications: 23:07 Drug: Lactulose PO 10 grams 15 ml PO once Volume: 15 ml; Route: PO; rv 23:07 Follow up: Response: Medication administered at discharge. rv Medication: 23:00 VIS not applicable for this client. rv Outcome: 23:01 Discharge ordered by . ec2 23:13 Discharged to home ambulatory, with family, rv 23:13 Condition: good 23:13 Discharge instructions given to patient, family, Instructed on discharge instructions, follow up and referral plans. medication usage, Demonstrated understanding of instructions, follow-up care, medications, Prescriptions given X 1, 23:14 Patient left the ED. rv Signatures: Dispatcher [employer] EDNY Geoff Howell, DANK RN rv Kyle Khan RN RN as6 Griffin Kate MD MD 2 Latasha Gonzalez gm2
--- NOTE | 2023-09-05 23:02 | EDPHYS ---
Physician Documentation [facility] Name: Angelo Gonzalez Age: 88 yrs Sex: Male : 1935 Arrival Date: 09/05/2023 Time: 21:52 Bed 5 Private MD: ED Physician Griffin Ktae HPI: 09/05 22:15 This 88 yrs old Male presents to ER via Ambulatory with complaints of High Blood ec2 Pressure, pt states he might have a bowel obstruction, Abdominal Pain. 22:15 Patient arrives today for evaluation of constipation. Patient reports that he has had 3 ec2 days without a bowel movement. Denies any abdominal pain, denies any nausea or vomiting. Patient reports that he has been eating and drinking without issue has been taking plenty of water, has trialed a couple doses of MiraLAX without improvement in his symptoms. Denies history of previous abdominal surgeries.. Historical: - Allergies: 22:13 No Known Allergies; as6 - PMHx: 22:13 aortic aneurysm; Arthritis; BPH; Cancer; bladder; Hypertension; Hypothyroidism; as6 - PSHx: 22:13 None; as6 - Immunization history:: Adult Immunizations up to date. - Social history:: Smoking status: Patient denies any tobacco usage or history of. ROS: 22:15 Constitutional: as per hpi ec2 Exam: 22:15 Constitutional: GEN: NAD Head: atraumatic Eyes: EOMI Ears: External ears are ec2 normal. CV: Slight tachycardia noted LUNGS: no respiratory distress ABD: non-distended, soft, nontender, not guarding, not rigid SKIN: no evidence of rashes MSK: no evidence of trauma NEURO: moves all extremities equally Vital Signs: 22:14 BP 133 / 94; Pulse 102; Resp 18 S; Temp 98.2(TE); Pulse Ox 96% on R/A; Weight 73.48 kg as6 (R); Height 5 ft. 6 in. (R); Pain 5/10; 23:13 BP 127 / 81; Pulse 81; Resp 17; Temp 98; Pulse Ox 99% on R/A; rv 22:14 Body Mass Index 26.15 (73.48 kg, 167.64 cm) as6 22:14 Pain Scale: Adult as6 MDM: 22:10 Patient medically screened. ec2 22:15 Data reviewed: vital signs. ED course: Patient arrives today due to concern for ec2 constipation. Examination remarkable for well-appearing nontoxic dividual is otherwise in no acute distress. Will obtain radiograph of the abdomen, low suspicion for bowel obstruction, low suspicion for intussusception, suspect constipation. Likely discharge to home with prescription for lactulose for constipation.. 22:17 ED course: Additionally patient otherwise systemically well-appearing, states has been ec2 tolerating p.o. intake, low suspicion for acute intra-abdominal process, accordingly will defer any lab work, will defer any CT imaging.. 22:58 ED course: Abdominal x-ray independently reviewed and interpreted by me, shows no acute ec2 process, constipation noted, no bowel obstruction evident. Will discharge home with prescription for lactulose and follow with primary care doctor. Return precautions given . 09/05 22:15 Order name: Abdomen 1 View XRAY ec2 Administered Medications: 23:07 Drug: Lactulose PO 10 grams 15 ml PO once Volume: 15 ml; Route: PO; rv 23:07 Follow up: Response: Medication administered at discharge. rv Disposition Summary: 09/05/23 23:01 Discharge Ordered Notes: Location: Home ec2 Condition: Stable ec2 Diagnosis - Constipation, unspecified ec2 Followup: ec2 - With: Private Physician - When: - Reason: Recheck today's complaints, Continuance of care Discharge Instructions: - Discharge Summary Sheet ec2 - Constipation, Adult ec2 Forms: - Medication Reconciliation Form ec2 - Thank You Letter ec2 - Antibiotic Education ec2 - Prescription Opioid Use ec2 - Patient Portal Instructions ec2 - Leadership Thank You Letter ec2 Prescriptions: - Lactulose 10 gram/15 mL Oral solution - take 30 milliliters ORAL route every 12 hours; 300 milliliter; Refills: 0, ec2 Product Selection Permitted Signatures: Dispatcher [employer] Geoff Raines RN RN rv Slawson, Ashby, RN RN as6 Griffin Kate MD MD ec2
[2023-09-06 01:07] VITALS: BP 127/81; TEMP 98; O2SAT 99
--- NOTE | 2023-09-07 14:57 | RAD REPORT ---
EXAM DESCRIPTION: Abdomen Single View CLINICAL HISTORY: 88 years Male CONSTIPATION TECHNIQUE: One view of the abdomen. COMPARISON: No prior exams provided for comparison. FINDINGS: Mild colonic constipation. The bowel gas pattern is otherwise nonspecific and nondilated w ithout evidence of obstruction or free intraperitoneal air. No soft tissue masses or abnormal radiode nsities are identified. The lung bases and visualized osseous structures are unremarkable. IMPRESSION: Mild colonic constipation. No other acute findings. Electronically signed by: Jackie Eisenberg MD 09/05/2023 10:54 PM MEDICAL PHYSIOLOGIST Due to temporary technical issues with the PACS/Fluency reporting system, reports are being signed by the in house radiologists without review as a courtesy to insure prompt reporting. The interpreting radiologist is fully responsible for the content of the report.
== END ==
LOC: ER 21:52
DX: K59.00 Constipation, unspecified (principal); I10 Essential (primary) hypertension
CPT/HCPCS: 74018; 99284

== ENCOUNTER → 2023-09-15 | Emergency (ER) | payer OTHER ==
--- NOTE | 2023-09-15 21:39 | EDPHYS ---
Physician Documentation [facility] Name: Angelo Gonzalez Age: 88 yrs Sex: Male : 1935 Arrival Date: 09/15/2023 Time: 20:19 Bed 11 Private MD: ED Physician Thomas Garcia HPI: 09/15 23:00 This 88 yrs old Male presents to ER via Ambulatory with complaints of Problem With kdr Urinary Catheter. 23:00 Earlier today the patient had a urinary catheter placed by Dr. Michael office. Since kdr then he has had intermittent leaking around the catheter. Patient otherwise denies any discomfort fever chills nausea vomiting. Patient is not in any acute distress. We will change out the Haider and likely discharge shortly after that. Onset: The symptoms/episode began/occurred suddenly, today. Severity of symptoms: At their worst the symptoms were mild in the emergency department the symptoms are unchanged. The patient has not experienced similar symptoms in the past. The patient has been recently seen by a physician: the patient's primary care provider. Historical: - Allergies: 20:44 No Known Allergies; tl4 - PMHx: 20:44 aortic aneurysm; Arthritis; BPH; Cancer; bladder; Hypertension; Hypothyroidism; tl4 - Immunization history:: Adult Immunizations unknown. - Social history:: Smoking status: Patient denies any tobacco usage or history of. ROS: 23:00 Constitutional: Negative for fever, chills, and weight loss, Eyes: Negative for injury, kdr pain, redness, and discharge, Abdomen/GI: Negative for abdominal pain, nausea, vomiting, diarrhea, and constipation, : Negative for injury, bleeding, discharge, and swelling, there is a Haider in place with apparent leakage from the meatal area. Exam: 23:00 Constitutional: This is a well developed, well nourished patient who is awake, alert, kdr and in no acute distress. 23:00 : a haider is noted, Vital Signs: 20:42 BP 142 / 91; Pulse 96; Resp 16; Temp 98(O); Pulse Ox 99% on R/A; Weight 74.84 kg; tl4 Height 5 ft. 6 in. ; Pain 3/10; 21:26 BP 121 / 71; Pulse 68; Resp 15; Pain 0/10; nw1 20:42 Body Mass Index 26.63 (74.84 kg, 167.64 cm) tl4 20:42 Pain Scale: Adult tl4 21:26 Pain Scale: Adult nw1 Annia Coma Score: 21:26 Eye Response: spontaneous(4). Motor Response: obeys commands(6). Verbal Response: nw1 oriented(5). Total: 15. MDM: 21:39 Patient medically screened. kdr 23:02 Data reviewed: vital signs, nurses notes. kdr 09/15 21:00 Order name: Haider: Exchange of Haider catheter; Complete Time: 21:26 kdr Administered Medications: No medications were administered Disposition Summary: 09/15/23 21:39 Discharge Ordered Notes: Location: Home kdr Problem: new kdr Symptoms: have improved kdr Condition: Stable kdr Diagnosis - Haider leakage from meatus kdr Followup: kdr - With: Landry Michael MD - When: 2 - 3 days - Reason: If symptoms return, Further diagnostic work-up, Recheck today's complaints, Continuance of care, Re-evaluation by your physician Discharge Instructions: - Discharge Summary Sheet kdr - Indwelling Urinary Catheter Care, Adult kdr Forms: - Medication Reconciliation Form kdr - Thank You Letter kdr - Patient Portal Instructions kdr - Leadership Thank You Letter kdr Signatures: Thomas Garcia MD MD kdr Stewart Rutledge tl4
--- NOTE | 2023-09-15 21:39 | ER ---
Nurse's Notes [facility] Name: Angelo Gonzalez Age: 88 yrs Sex: Male : 1935 Arrival Date: 09/15/2023 Time: 20:19 Bed 11 Private MD: Diagnosis: Haider leakage from meatus Presentation: 09/15 20:42 Chief complaint: Patient states: Pt states his indwelling urinary catheter was replaced tl4 this afternoon at Dr Salvador's office. Catheter has been leaking since 1700. Coronavirus screen: Vaccine status: Patient reports receiving the 2nd dose of the covid vaccine. At this time, the client does not indicate any symptoms associated with coronavirus-19. Ebola Screen: Patient negative for fever greater than or equal to 101.5 degrees Fahrenheit, and additional compatible Ebola Virus Disease symptoms Patient denies exposure to infectious person. Patient denies travel to an Ebola-affected area in the 21 days before illness onset. No symptoms or risks identified at this time. Initial Sepsis Screen: Does the patient meet any 2 criteria? No. Patient's initial sepsis screen is negative. Does the patient have a suspected source of infection? No. Patient's initial sepsis screen is negative. Risk Assessment: Do you want to hurt yourself or someone else? Patient reports no desire to harm self or others. Onset of symptoms was September 15, 2023 at 17:00. 20:42 Method Of Arrival: Ambulatory tl4 20:42 Acuity: RAMIDA 4 tl4 Triage Assessment: 20:45 General: Appears in no apparent distress. Behavior is calm, cooperative. Pain: Denies tl4 pain. EENT: No deficits noted. No signs and/or symptoms were reported regarding the EENT system. Neuro: No deficits noted. Cardiovascular: No deficits noted. Respiratory: No deficits noted. GI: No deficits noted. No signs and/or symptoms were reported involving the gastrointestinal system. : Reports leaking from urinary catheter. Derm: No deficits noted. No signs and/or symptoms reported regarding the dermatologic system. Musculoskeletal: No deficits noted. No signs and/or symptoms reported regarding the musculoskeletal system. Historical: - Allergies: 20:44 No Known Allergies; tl4 - PMHx: 20:44 aortic aneurysm; Arthritis; BPH; Cancer; bladder; Hypertension; Hypothyroidism; tl4 - Immunization history:: Adult Immunizations unknown. - Social history:: Smoking status: Patient denies any tobacco usage or history of. Screenin:26 [facility] ED Fall Risk Assessment (Adult) History of falling in the last 3 months, nw1 including since admission No falls in past 3 months (0 pts) Confusion or Disorientation No (0 pts) Intoxicated or Sedated No (0 pts) Impaired Gait Yes (1 pt) Mobility Assist Device Used Yes (1 pt) Altered Elimination Yes (1 pt) Score/Fall Risk Level 3 or more points = High Risk Oriented to surroundings, Maintained a safe environment, Educated pt \T\ family on fall prevention, incl call for assistance when getting out of bed, Assessed \T\ reinforced patient's understanding of fall precautions, Provided non-skid footwear, Hourly rounding (assess needs \T\ fall precautionary measures) done. Abuse screen: Denies threats or abuse. Denies injuries from another. Nutritional screening: No deficits noted. Tuberculosis screening: No symptoms or risk factors identified. Assessment: 21:01 Reassessment: Pt noted in bed. States he was seen by urologist for haider catheter nw1 change and noted leaking around the haider site. Patient denies any other concerns at this time. MD at bedside at time of assessment. Pt noted with 16 fr haider. Will increase in size to ensure proper drainage. Urine noted in leg bag. Vital Signs: 20:42 BP 142 / 91; Pulse 96; Resp 16; Temp 98(O); Pulse Ox 99% on R/A; Weight 74.84 kg; tl4 Height 5 ft. 6 in. ; Pain 3/10; 21:26 BP 121 / 71; Pulse 68; Resp 15; Pain 0/10; nw1 20:42 Body Mass Index 26.63 (74.84 kg, 167.64 cm) tl4 20:42 Pain Scale: Adult tl4 21:26 Pain Scale: Adult nw1 [address] Coma Score: 21:26 Eye Response: spontaneous(4). Motor Response: obeys commands(6). Verbal Response: nw1 oriented(5). Total: 15. ED Course: 20:23 Patient arrived in ED. gm2 20:25 Thomas Garcia MD is Attending Physician. kdr 20:44 Triage completed. tl4 20:46 Arm band placed on Patient placed in an exam room, on a stretcher. tl4 21:01 Mima Knowles, RN is Primary Nurse. nw1 21:26 Patient has correct armband on for positive identification. Bed in low position. Call nw1 light in reach. Side rails up X 1. Provided Education on: Catheter change. 21:26 No provider procedures requiring assistance completed. Haider cath inserted, using nw1 sterile technique, 18 Fr., by me, balloon inflated, to gravity drainage, other 10cc balloon inflation. Pt tolerated removal of 16FR haider catheter well. Denies pain. Inserted Patient did not have IV access during this emergency room visit. 21:38 Landry Michael MD is Referral Physician. kdr Administered Medications: No medications were administered Medication: 21:26 VIS not applicable for this client. nw1 Outcome: 21:39 Discharge ordered by . kdr 21:54 Discharged to home ambulatory, nw1 21:54 Condition: stable 21:54 Discharge instructions given to patient, 21:54 Patient left the ED. nw1 Signatures: Thomas Garcia MD MD [facility] Latasha Gonzalez [facility] Mima Knowles, RN RN nw1 Stewart Rutledge tl4
[2023-09-16 00:39] VITALS: BP 121/71; TEMP 98; O2SAT 99
== END ==
LOC: ER 20:19
PROC: 0T2BX0Z Change Drainage Device in Bladder, External Approach (ICD-10-PCS; principal; 2023-09-15)
DX: T83.038A Leakage of other urinary catheter, initial encounter (principal); N40.0 Benign prostatic hyperplasia without lower urinary tract symptoms; I10 Essential (primary) hypertension; E03.9 Hypothyroidism, unspecified; I71.9 Aortic aneurysm of unspecified site, without rupture; M19.90 Unspecified osteoarthritis, unspecified site; Z85.51 Personal history of malignant neoplasm of bladder
CPT/HCPCS: 99284

== ENCOUNTER 2023-11-22 09:11 | Day surgery (SDC) | payer OTHER ==
[2023-11-08 09:38] LABS: Absolute Basophils 0.1 K/uL (0-0.5); Absolute Eosinophils 0.2 K/uL (0-0.5); Absolute Lymphocytes (CBC) 1.4 K/uL (0.7-4.9); Absolute Monocytes 0.6 K/uL (0.1-1.3); Absolute Neutrophil 4.2 K/uL (1.8-8.0); Basophils % 0.8 % (0-1.3); Eosinophils % 3.6 % (0-4.4); Hematocrit 38.3 % (39.6-49.0); Hemoglobin 12.8 g/dL (13.6-17.9); Lymphocytes % 21.5 % (15.3-44.8); MCHC 33.3 g/dL (32.0-36.0); MCV 90.1 fL (80-100); MPV 8.3 fL (7.6-11.3); Monocytes % 9.7 % (3.3-12.3); Neutrophils % 64.4 % (41.7-73.7); Platelets 220 thou/uL (152-406); RBC Red Blood Cell Count 4.26 M/uL (4.33-5.43); Red Cell Distribution Width 14.9 % (12.1-15.2)
[2023-11-08 09:43] LABS: PT Prothrombin Time 12.1 SECONDS (9.5-12.5); Protime INR 1.1
[2023-11-08 09:49] LABS: Anion Gap 6.4 mEq/L (5.0-15.0); Potassium 4.4 mEq/L (3.5-5.1)
--- NOTE | 2023-11-08 12:50 | RAD REPORT ---
EXAM DESCRIPTION: RAD - Chest Pa And Lat (2 Views) - 11/08/2023 9:47 am CLINICAL HISTORY: Pre op pending bladder stimulator. Hypertension COMPARISON: Abdomen 1 View (KUB) dated 12/22/2021; Chest Pa And Lat (2 Views) dated 07/30/2021; Chest S tanna View dated 08/25/2019; Chest Pa And Lat (2 Views) dated 01/08/2019 TECHNIQUE: PA and lateral views of the chest were obtained. FINDINGS: The lungs show stable left basilar streaky opacification, may represent scarring. . Heart size is normal and central vasculature is within normal limits. No pleural effusion or pneumothorax s een. No acute bony finding noted. IMPRESSION: No acute cardiopulmonary process.
--- NOTE | 2023-11-08 14:04 | EKG ---
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
[2023-11-22] MEDS: Ringers Lactate 1,000 ML IV ONE ×2 (09:50→14:16)
[2023-11-22] MEDS ORDERED: LIDOCAINE 2% MPF 5 ML VIAL ONE (10:27)
[2023-11-22] MEDS ORDERED: ONDANSETRON 4 MG/2 ML VIAL ONE (10:27)
[2023-11-22] MEDS ORDERED: FENTANYL CITR 100 MCG/2 ML ONE (10:27)
[2023-11-22] MEDS ORDERED: propofoL 200 MG/20 ML VIAL IV ONE (10:27)
[2023-11-22] MEDS ORDERED: EPHEDRINE SULF 50 MG/ML VIAL ONE (13:24)
[2023-11-22] MEDS ORDERED: dexAMETHasone 10 MG/ML VIAL ONE (13:32)
[2023-11-22] MEDS: CEFAZOLIN SODIUM 2 GM/VIAL ONE (13:33)
[2023-11-22] MEDS: BUPIVACAINE 0.25% PF 10 ML VIAL ONE (13:42)
[2023-11-22] MEDS ORDERED: CODEINE 30MG/APAP 300MG TAB PO PRN (15:25)
[2023-11-22] MEDS: HYDROMORPHONE HCL 1 MG/ML INJ ONE (15:50)
[2023-11-22 15:52] VITALS: TEMP 97
[2023-11-22 16:28] VITALS: O2SAT 96
--- NOTE | 2023-11-22 17:27 | OP ---
Surgeon: ÁLVARO MCLAUGHLIN Preoperative Diagnoses: 1.Voiding dysfunction. 2.Incomplete emptying of bladder. 3.Severe lower urinary tract symptoms. Postoperative Diagnoses: 1.Voiding dysfunction. 2.Incomplete emptying of bladder. 3.Severe lower urinary tract symptoms. Principal Procedure: Axonics sacral neuromodulation implantation. Indication For Procedure: Mr. Gonzalez is an 88-year-old gentleman who presented to the Urology Clin ic with significant bothersome lower urinary symptoms. 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 Attempts to manage his condition with medications failed, and ultimately he underwent percutaneous pl acement of the sacral neuromodulator device using Axonics system. He had a dramatic improvement in h is urinary symptoms following the 3-day trial, and in fact, his daughter and the patient preoperative ly indicated his symptoms continued to be excellent even after the percutaneous leads were removed. As a result, he presents today for definitive placement of the permanent sacral neuromodulation impla nt. Procedure In Detail: The patient was consented in the preoperative holding area before being transfe rred to the operative suite where general anesthesia was induced. He was given Ancef 2 g IV antimicr obial prophylaxis, and pneumo boots were provided for DVT prophylaxis. He was intubated in the supin e position and flipped to the prone position, padded and secured to the table appropriately with a ge l roll beneath his chest and a triangular bump pad at his hips to cause flexion at the hips. His arm s were situated at his side in a relaxed position, and he was secured to the table appropriately. Hi s lower back region and buttocks crease was prepped with Hibiclens and draped in standard fashion. T he case was begun by using a ruler and a marking pen to gisella a point about 9 cm above the tip of the sacrum at the coccyx. I then marked a position 2 cm laterally and about 1.5 to 2 cm superior to that for the initial needle insertion site planned entry. I utilized 0.25% Marcaine for local anesthesia in that point and placed the needle through the skin at about a 30-degree angle ultimately until I c ould palpate it going through one of the sacral foramina in that location. Spot fluoroscopic imagery was obtained in the AP region and suggested the needle may have been at the S4 level. As a result, after testing the lead and not achieving a wally reflex at that point, I chose a position approxima tely 1 to 1.5 cm higher than that and again inserted the needle, but that needle continued to be at w hat appeared to be the S4 position. Again, test of that revealed absence of the significant wally reflex suggestive of the positioning too low at the S4 level. As a result, I chose a position 1 cm t o 1.5 cm higher than that and again instilled 0.25% Marcaine before placing the needle through the sk in and ultimately guiding it through what did appear to be ideally at the S3 level and through the fo ramina. Testing of the needle did reveal an appropriate wally reflex, so we incised the skin and t hen passed a dilator over a guide wire that had been placed via the trocar needle. I then placed the lead through the trocar into that site, but the lead would not position adequately. It would tend t o divert upward, though it did progress laterally. Testing of the lead in that position, after multi ple attempts to reposition the lead so that it angled downward and laterally failed, so we tested the lead and it did reveal appropriate wally reflex at one of the 4 leads, but the other 3 with insign ificant responses. As a result, after couple of attempts manipulating the lead, I ultimately elected a position 4 cm across the midline and on the patient's left side placed another needle trocar throu gh the skin and into the sacral foramina after instilling the region with subcutaneous Marcaine. Sharon ting of this revealed an excellent wally reflex and toe flexion; so I removed the dilator from the right side and passed it through the patient's left side after placing the guidewire through the need le catheter. With the dilator in place, I then placed a lead which did appropriately situate lateral ly and inferiorly. Testing of each of the components of the leads did reveal excellent response with the most proximal lead and continued responses across the next 2 of a total of 4 leads for 3/4 leads with a response achieved. With the lead now determined to be in excellent position on the patient's left side, I then removed the dilator trocar, leaving the lead in place, but unfortunately the lead did end up progressing further into the sacral foramina than desired. With some gentle manipulation, despite the tines being deployed, I was able to backed the lead out approximately 1 to 1.5 cm until the proximal lead was just straddling the inner border of the sacrum and was in ideal position. Repe at testing of the lead in that position did again achieve reasonable responses in 2-3 of the 4 leads tested. As a result, I then identified a pocket that was 4 cm distal to the midportion of the iliac crest in the fat pad of his left lower back region, and I made an incision that was about 4 cm in stephon meter after instilling subcutaneous Marcaine. This was deepened through the subcutaneous tissues usi ng electrocautery, and about 1 to 1.5 cm deep, I created a pocket large enough to insert the non-rech argeable device. I then used a tunneling device to tunnel the lead from its medial position near the sacral spine, out laterally toward the pocket for the battery pack, and then I connected the lead to the battery pack before securing it in position using the associated screwdriver. I then placed the battery and the lead into the pocket before closing the pocket using 3-0 Vicryl suture in a running fashion. I then performed a running subcuticular using 4-0 Monocryl and closed the 2 other sites gerardo t I dilated on the patient's right side as well as the one dilated on the left using an interrupted s ubcutaneous 4-0 Monocryl. The skin was cleansed using sterile saline and dried, and then Dermabond w as used to seal the skin. He was then flipped back into the supine position where he was extubated o n the stretcher. He was then awakened from general anesthesia, transferred to the recovery room in g ood condition. Complications: None observable. Discharge Disposition: He should follow up in the Urology Clinic within the next 3-6 weeks for inter anthony assessment of his improvement with the implanted sacral neuromodulation device. Any issues with redness or tenderness of the implant site should be brought to my attention and he should come in lane ner should that occur. PATRICK/MODL Voice ID: [id number] Report ID: [id number]
--- NOTE | 2023-11-22 17:32 | RAD REPORT ---
EXAM DESCRIPTION: RAD - Fluoroscopy <1 Hour - 11/22/2023 5:27 pm CLINICAL HISTORY: NEURO SACRAL MODULATION COMPARISON: US. GUIDANCE FOR NDL PLACE. dated 04/26/2014 FINDINGS: Fluoroscopy time: 0.7 minutes
[2023-11-22 17:35] VITALS: BP 116/69
== END 2023-11-22 17:10 | disposition home or self-care (01) ==
LOC: OR 09:11 → EEVIPCON 10:45 → OR 17:10
PROVIDERS: ATTEND Urology
PROC: 0JH73BZ Insertion of Single Array Stimulator Generator into Back Subcutaneous Tissue and Fascia, Percutaneous Approach (ICD-10-PCS; 2023-11-22)
PROC: 01HY3MZ Insertion of Neurostimulator Lead into Peripheral Nerve, Percutaneous Approach (ICD-10-PCS; principal; 2023-11-22 11:00)
DX: R33.9 Retention of urine, unspecified (principal); N36.44 Muscular disorders of urethra; N39.8 Other specified disorders of urinary system; N13.8 Other obstructive and reflux uropathy
CPT/HCPCS: 64561; 64590; 93005; 87088; 85025; 87086; 80048; 36415; 85610; 71046; J2704; J2001; J3010; J1100; J1170; J2405; J7120 ×2; 76000

== ENCOUNTER 2024-02-08 23:27 | Emergency (ER) | payer OTHER ==
--- NOTE | 2024-02-09 00:25 | EDPHYS ---
Physician Documentation [facility] Name: Angelo Gonzalez Age: 88 yrs Sex: Male : 1935 Arrival Date: 02/08/2024 Time: 23:27 Bed 7 Private MD: ED Physician Yuriy Francis HPI: 02/07 23:38 This 88 yrs old Male presents to ER via Unassigned with complaints of Urinary sp4 Retention. 02/08 23:59 patient states he has Sacral nerve stimulator for bladder control - Axonics , Patient sp4 reports possible urinary retention . Historical: - Allergies: 02/07 23:48 No Known Allergies; ha1 - Home Meds: 23:48 Plavix 75 mg Oral tablet [Active]; prednisone 10 mg Oral tablet [Active]; Myrbetriq 50 ha1 mg Oral tablet [Active]; bisoprolol fumarate 5 mg Oral tablet [Active]; donepezil 5 mg Oral tablet [Active]; tamsulosin 0.4 mg Oral capsule [Active]; - PMHx: 23:48 aortic aneurysm; Arthritis; BPH; Cancer; bladder; Hypertension; Hypothyroidism; ha1 - Immunization history:: Adult Immunizations up to date. - Infectious Disease History:: Denies. - Social history:: Smoking status: Patient denies any tobacco usage or history of. - Family history:: not pertinent. ROS: 02/08 23:59 Constitutional: Negative for fever, chills, and weight loss, positive reported bladder sp4 discomfort All other systems are negative, Exam: 23:59 Constitutional: This is a well developed, well nourished patient who is awake, alert, sp4 and in no acute distress. Head/Face: Normocephalic, atraumatic. Eyes: Pupils equal round and reactive to light, extra-ocular motions intact. Lids and lashes normal. Conjunctiva and sclera are not injected. Cornea within normal limits. Periorbital areas with no swelling, redness, or edema. ENT: Nares patent. No nasal discharge, no septal abnormalities noted. Tympanic membranes are normal and external auditory canals are clear. Oropharynx with no redness, swelling, or masses, exudates, or evidence of obstruction, uvula midline. Mucous membranes moist. Neck: Trachea midline, no thyromegaly or masses palpated, and no cervical lymphadenopathy. Supple, full range of motion without nuchal rigidity, or vertebral point tenderness. Chest/axilla: Normal chest wall appearance and motion. Nontender with no deformity. No lesions are appreciated. Cardiovascular: Regular rate and rhythm with a normal S1 and S2. No gallops, murmurs, or rubs. Normal PMI, no JVD. No pulse deficits. Respiratory: Lungs have equal breath sounds bilaterally, clear to auscultation and percussion. No rales, rhonchi or wheezes noted. No increased work of breathing, no retractions or nasal flaring. Abdomen/GI: Soft, with normal bowel sounds. No distension or tympany. No guarding or rebound. No evidence of tenderness throughout. Back: No spinal tenderness. No costovertebral tenderness. Skin: Warm, dry with normal turgor. Normal color with no rashes, no lesions, and no evidence of cellulitis. MS/ Extremity: Pulses equal, no cyanosis. Neurovascular intact. Full, normal range of motion. Neuro: Awake and alert, GCS 15, oriented to person, place, time, and situation. Cranial nerves II-XII grossly intact. Motor strength 5/5 in all extremities. Sensory grossly intact. Psych: Awake, alert, with orientation to person, place and time. Behavior, mood, and affect are within normal limits Vital Signs: 02/07 23:37 BP 164 / 72; Pulse 78; Resp 19 S; Temp 97.5(T); Pulse Ox 100% on R/A; Weight 72.57 kg; ha1 Height 5 ft. 6 in. ; 23:37 Body Mass Index 25.82 (72.57 kg, 167.64 cm) ha1 [place] Coma Score: 23:57 Eye Response: spontaneous(4). Motor Response: obeys commands(6). Verbal Response: bm8 oriented(5). Total: 15. 02/08 23:59 Eye Response: spontaneous(4). Motor Response: obeys commands(6). Verbal Response: sp4 oriented(5). Total: 15. MDM: 00:03 Patient medically screened. sp4 02/09 00:04 Differential Diagnosis altered mental status, sepsis, flu, Urinary retention . Data sp4 reviewed: vital signs, nurses notes. ED course: Bedside ultrasound reveals decompressed urinary bladder. Patient does not warrant Catheter for Urinary retention. Advised follow up with Urologist for further evaluation . Administered Medications: No medications were administered Disposition Summary: 02/09/24 00:19 Discharge Ordered Notes: Location: Home sp4 Problem: new sp4 Symptoms: have improved sp4 Condition: Stable sp4 Diagnosis - Discomfort with Urination, Axonics Bladder Stimulator in place sp4 - Discomfort with Urination, Axonics Sacral Neurostimulator in place sp4 Followup: sp4 - With: Landry Michael MD - When: 7 - 10 days - Reason: Recheck today's complaints Discharge Instructions: - Discharge Summary Sheet sp4 - Medical Screening Exam sp4 Signatures: Toshia He RN RN ha1 Yuriy Francis MD MD sp4
--- NOTE | 2024-02-09 00:25 | ER ---
Nurse's Notes [facility] Name: Angelo Gonzalez Age: 88 yrs Sex: Male : 1935 Arrival Date: 02/08/2024 Time: 23:27 Bed 7 Private MD: Diagnosis: Discomfort with Urination, Axonics Bladder Stimulator in place ;Discomfort with Urination, Axonics Sacral Neurostimulator in place Presentation: 02/07 23:37 Chief complaint: Patient states: I think I am retaining urine because I have not been ha1 feeling the need to urinate since this afternoon. I have a device implanted to help me urinate but no urine is coming out. 23:37 Coronavirus screen: Vaccine status: Patient reports receiving the 2nd dose of the covid ha1 vaccine. Moderna. Ebola Screen: No symptoms or risks identified at this time. Initial Sepsis Screen: Does the patient meet any 2 criteria? No. Patient's initial sepsis screen is negative. Does the patient have a suspected source of infection? No. Patient's initial sepsis screen is negative. Risk Assessment: Do you want to hurt yourself or someone else? Patient reports no desire to harm self or others. Onset of symptoms was February 08, 2024. 23:37 Method Of Arrival: Ambulatory ha1 23:37 Acuity: ARMIDA 3 ha1 Triage Assessment: 23:37 General: Appears comfortable, Behavior is calm, cooperative. Pain: Denies pain. Neuro: ha1 Level of Consciousness is awake, alert, obeys commands, Oriented to person, place, time, situation. Respiratory: Airway is patent Respiratory effort is even, unlabored, Respiratory pattern is regular, symmetrical. : Reports inability to void, since this afternoon. Historical: - Allergies: 23:48 No Known Allergies; ha1 - Home Meds: 23:48 Plavix 75 mg Oral tablet [Active]; prednisone 10 mg Oral tablet [Active]; Myrbetriq 50 ha1 mg Oral tablet [Active]; bisoprolol fumarate 5 mg Oral tablet [Active]; donepezil 5 mg Oral tablet [Active]; tamsulosin 0.4 mg Oral capsule [Active]; - PMHx: 23:48 aortic aneurysm; Arthritis; BPH; Cancer; bladder; Hypertension; Hypothyroidism; ha1 - Immunization history:: Adult Immunizations up to date. - Infectious Disease History:: Denies. - Social history:: Smoking status: Patient denies any tobacco usage or history of. - Family history:: not pertinent. Screenin:57 [facility] ED Fall Risk Assessment (Adult) History of falling in the last 3 months, bm8 including since admission No falls in past 3 months (0 pts) Confusion or Disorientation No (0 pts) Intoxicated or Sedated No (0 pts) Impaired Gait No (0 pts) Mobility Assist Device Used No (0 pt) Altered Elimination No (0 pt) Score/Fall Risk Level 0 - 2 = Low Risk Oriented to surroundings, Maintained a safe environment, Educated pt \T\ family on fall prevention, incl call for assistance when getting out of bed, Assessed \T\ reinforced patient's understanding of fall precautions. Abuse screen: Denies threats or abuse. Nutritional screening: No deficits noted. Tuberculosis screening: No symptoms or risk factors identified. Assessment: 23:57 General: Appears in no apparent distress. comfortable, Behavior is calm, cooperative, bm8 appropriate for age. Pain: Denies pain. Neuro: No deficits noted. Level of Consciousness is awake, alert, obeys commands, Oriented to person, place, time, situation, Appropriate for age. Cardiovascular: Denies chest pain, Capillary refill < 3 seconds Patient's skin is warm and dry. Respiratory: Airway is patent Trachea midline Respiratory effort is even, unlabored, Respiratory pattern is regular, symmetrical. GI: No deficits noted. No signs and/or symptoms were reported involving the gastrointestinal system. : pt bladder scanned and ultrasound scanned to ensure accuracy. pt has approx. 45 ml in bladder. EENT: No deficits noted. No signs and/or symptoms were reported regarding the EENT system. Vital Signs: 23:37 BP 164 / 72; Pulse 78; Resp 19 S; Temp 97.5(T); Pulse Ox 100% on R/A; Weight 72.57 kg; ha1 Height 5 ft. 6 in. ; 23:37 Body Mass Index 25.82 (72.57 kg, 167.64 cm) ha1 [place] Coma Score: 23:57 Eye Response: spontaneous(4). Motor Response: obeys commands(6). Verbal Response: bm8 oriented(5). Total: 15. 06/20 23:59 Eye Response: spontaneous(4). Motor Response: obeys commands(6). Verbal Response: sp4 oriented(5). Total: 15. ED Course: 02/07 23:36 Patient arrived in ED. jj6 23:38 Yuriy Francis MD is Attending Physician. sp4 23:48 Triage completed. ha1 23:57 Tashi Philip, RN is Primary Nurse. bm8 23:57 Patient has correct armband on for positive identification. Bed in low position. Call bm8 light in reach. Side rails up X 1. Provided Education on: post er care. Client placed on continuous cardiac and pulse oximetry monitoring. NIBP monitoring applied. Pulse ox on. NIBP on. Door closed. Noise minimized. Warm blanket given. Head of bed lowered. 23:57 No provider procedures requiring assistance completed. Patient did not have IV access bm8 during this emergency room visit. 02/08 00:01 Arm band placed on right wrist. bm8 00:18 Landry Michael MD is Referral Physician. sp4 Administered Medications: No medications were administered Medication: 02/07 23:57 VIS not applicable for this client. bm8 Outcome: 23:57 Discharged to home ambulatory, bm8 23:57 Condition: stable 23:57 Instructed on discharge instructions, follow up and referral plans. 02/08 00:19 Discharge ordered by . sp4 00:35 Patient left the ED. jb4 Signatures: Eliceo Grajeda, RN RN jb4 Ellie Melendez jj6 Toshia He RN RN Yuriy Dugan MD MD sp4 McDonald, Brad, RN RN bm8
[2024-02-09 01:16] VITALS: BP 164/72; TEMP 97.5; O2SAT 100
== END 2024-02-09 00:35 | disposition home or self-care (01) ==
LOC: ER 23:27
DX: R30.9 Painful micturition, unspecified (principal); Z96.82 Presence of neurostimulator
CPT/HCPCS: 99283

== ENCOUNTER 2024-11-25 22:34 | Observation (INO) | payer OTHER ==
--- OUTSIDE RECORDS SUMMARY | 2024-11-25 22:40 | XMS REPORT | Continuity of Care Document ---
Author Name Unknown Address [address] [facility] [address] [place] [address] [facility] [place] Address [address] [facility] [address] [place] [address] Care Team Providers Care Admeasurer Name Role Phone Ari Flores Attending Clinician Unavailable Jmamie Menard Attending Clinician Unavailab le Payers Payer Name Policy Type Policy Number Effective Date Expiration Date Source [id number] [id number] [facility] MEDICARE NOVITAS [id number] 2000 00:00:00 [facility] MEDICARE [facility] [id number] 2000 00:00:00 [facility] Problems Condition Name Condition Details Condition Category Status Onset Date Resolution Date Last Treatment Date Treating Clinician Comments Source [id number] Right leg pain Problem [facility] [id number] Other tear of medial meniscus of right knee as current injury, subsequent encounter Problem [facility] [id number] Synovial plica syndrome of right knee Problem [facility] [id number] Status post arthroscop y of knee Problem [facility] [id number] Voiding dysfunctio n Problem [facility] [id number] Interstiti al pulmonary disease Problem [facility] [id number] Hepatic cyst Problem [facility] [id number] Right upper lobe pulmonary nodule Problem [facility] 453843965 Left thyroid nodule Problem [facility] [id number] Paroxysmal atrial fibrillati on Problem [facility] 38897468 Scrotal varices Problem [facility] [id number] Gait instabilit y Problem [facility] [id number] DSD (detrusor and sphincter dyssynergi a) Problem [facility] [id number] Lower urinary tract symptoms (LUTS) Problem [facility] 342649378 History of bladder cancer Problem [facility] 293550931 Incomplete bladder emptying Problem [facility] 661968859 Lesion of bladder Problem [facility] 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 Problem [facility] [id number] Stage 3 chronic kidney disease, unspecifie d whether stage 3a or 3b CKD Problem [facility] [id number] Pain, joint, hand, right Problem [facility] 036274765 Mass of right hand Problem [facility] 5526284 Urethral pain Problem [facility] 86723533 Acute stress reaction Problem [facility] 01991261 Generalize d anxiety disorder Problem [facility] 3033873 Primary insomnia Problem [facility] Allergic rhinitis Non-season al allergic rhinitis, unspecifie d trigger Problem [facility] [id number] Pain, joint, shoulder, left Problem [facility] 67285089 Cervical pain (neck) Problem [facility] Anemia Anemia, unspecifie d type Problem [facility] 118372896 OAB (overactiv e bladder) Problem [facility] [id number] Primary osteoarthr itis of right knee Problem [facility] [id number] 15412 Pain, joint, knee, right Problem [facility] Constipati on Constipati on Problem [facility] Urinary incontinen ce Urinary incontinen ce Problem [facility] [id number] Contusion of right knee, initial encounter Problem [facility] 555562639 Hypothyroi dism (acquired) Problem [facility] 77300178 Thoracic aortic aneurysm without rupture Problem [facility] 760048921 PAD (periphera l artery disease) Problem [facility] 92195906 Essential hypertensi on Problem [facility] 211454650 Benign prostatic hyperplasi a with lower urinary tract symptoms, symptom details unspecifie d Problem [facility] 119512817 Mixed hyperlipid emia Problem [facility] 079626133 Coronary artery disease involving [place] coronary artery of [place] heart with angina pectoris Problem [facility] 225157831 Malignant neoplasm of urinary bladder, unspecifie d site Problem [facility] 41871805 Pain in joint of right knee Problem [facility] Hypothyroi dism (disorder) Hypothyroi dism (disorder) Active Problem 07/08/2023 [facility] [place] Problem Active 2023-07-08 00:12:46 Memoria l Eliud Impaired cognition (finding) Impaired cognition (finding) Active Problem 07/08/2023 [facility] [place] Problem Active 2023-07-08 00:12:46 Memoria l Eliud Atrial fibrillati on (disorder) Atrial fibrillati on (disorder) Active Problem 07/08/2023 [facility] [place] Problem Active 2023-07-08 00:12:46 Memoria l Eliud Dementia (disorder) Dementia (disorder) Active Problem 07/08/2023 [facility] [place] Problem Active 2023-07-08 00:12:46 Remberto Kline Amnesia (finding) Amnesia (finding) Active Problem 07/08/2023 [facility] [place] Problem Active 2023-07-08 00:12:46 Remberto Kline Hyperlipid emia (disorder) Hyperlipid emia (disorder) Active Problem 07/08/2023 [facility] [place] Problem Active 2023-07-08 00:12:46 Remberto Kline Hypertensi ve disorder, systemic arterial (disorder) Hypertensi ve disorder, systemic arterial (disorder) Active Problem 07/08/2023 [facility] [place] Problem Active 2023-07-08 00:12:46 Remberto Kline Social History Social Habit Start Date Stop Date Quantity Comments Source History of Tobacco Use [facility] Sex Assigned At [facility] Smoking Status Start Date Stop Date Source Tobacco smoking status Hunter Kline Medications Ordered Medication Name Filled Medication Name Start Date Stop Date Current Medication? Ordering Clinician Indication Dosage Frequency Signature (SIG) Comments Components Source Phenazopyri dine HCl 200 MG Phenazopyri dine HCl 200 MG 2023-08 0-15 00:00: 00 No 1{table t_after _meals} TID Phenazopyr idine HCl 200 MG Albuterol Sulfate 1.25 MG/3ML Albuterol Sulfate 1.25 MG/3ML - 00:00: 00 No 3{ml_as _needed } Albuterol Sulfate 1.25 MG/3ML Albuterol Sulfate HFA 108 (90 Base) MCG/ACT Albuterol Sulfate HFA 108 (90 Base) MCG/ACT - 00:00: 00 No 2{puff_ as_need ed} 6xD Albuterol Sulfate HFA 108 (90 Base) MCG/ACT Metoprolol Succinate 25 MG Metoprolol Succinate 25 MG - 00:00: 00 No 1{capsu le} QD Metoprolol Succinate 25 MG Sertraline HCl 25 MG Sertraline HCl 25 MG 0 8-22 00:00: 00 No 1{table t} QD Sertraline HCl 25 MG Mupirocin 2 % Mupirocin 2 % - 00:00: 00 No 1{appli cation} BID Mupirocin 2 % Namenda 5 mg oral tablet 2022-08-16 20:31: 00 Yes 5 mg = 1 tab, PO, BID, # 180 tab, 1 Refill(s), Pharmacy: [facility] #[id number], 165.1, cm, 06/10/23 10:53:00 CDT, Height, 75, kg, 06/10/23 10:53:00 CDT, Weight Memoria brina Butler Namenda 5 mg oral tablet 2022-08 16:22: 00 Yes 5 mg = 1 tab, PO, BID, # 60 tab, 3 Refill(s), Pharmacy: [facility] #[id number], 165.1, cm, 06/10/23 10:53:00 CDT, Height, 75, kg, 06/10/23 10:53:00 CDT, Weight Memoria brina Kline Arnuity Ellipta 2022-08 15:53: 00 Yes PO, 0 Refill(s) Memoria brina Kline [place] Thyroid 15 mg oral tablet 2022-08 15:53: 00 Yes = 1 tab, PO, 0 Refill(s) Memsangita brina Kline Eliquis 5 mg oral tablet 05-20 17:56: 00 Yes 5 mg, PO, Q12H, tab, 0 Refill(s), For Atrial Fibrilatio n Camronsangita brina Kline metoprolol tartrate 25 mg oral tablet 05-20 17:55: 00 Yes 12.5 mg = 0.5 tab, PO, BID, 0 Refill(s) Memoria brina Kline donepezil 5 mg oral tablet 12-09 19:32: 00 Yes = 1 tab, PO, Daily, # 90 tab, 1 Refill(s), Pharmacy: [id number], 165.1, cm, 12/09/22 11:27:00 CDT, Height, 75, kg, 12/09/22 11:27:00 CDT, Weight Memoria brina Eliud Hyalgan Hyalgan 12-02 00:00: 00 No 2mL [facility] esomeprazol e 20 mg oral delayed release capsule 10-28 19:33: 00 Yes TAKE 1 CAPSULE BY MOUTH EVERY DAY FOR 90 DAYS Remberto Kline clopidogrel 75 mg oral tablet 10-28 19:33: 00 Yes TAKE 1 TABLET BY MOUTH EVERY DAY Remberto Kline bisoprolol 5 mg oral tablet 10-28 19:33: 00 Yes TAKE 1 TABLET BY MOUTH EVERY DAY IN THE EVENING Remberto Kline fluocinolon e otic 0.01% drops 10-28 19:33: 00 Yes USE A FEW DROPS NEEDED UP TO TWICE DAILY FOR ITCHING Remberto Kline Breo Ellipta 200 mcg-25 mcg/inh inhalation powder 10-28 19:33: 00 Yes TAKE 1 PUFF BY MOUTH EVERY DAY Remberto Kline Centrum Silver oral tablet 10-28 19:32: 00 Yes 1 tab, PO, Daily, # 30 tab, 0 Refill(s) Remberto Kline aspirin 81 mg oral capsule 10-28 19:30: 00 Yes 81 mg = 1 cap, PO, Daily, 0 Refill(s) Remberto Kline Myrbetriq 25 mg oral tablet, extended release 10-28 19:28: 00 Yes 25 mg = 1 tab, PO, Daily, # 30 tab, 5 Refill(s) Remberto Kline Lidocaine Lidocaine 12-07 00:00: 00 No 10mg [facility] Kenalog (Triamcinol one) Kenalog (Triamcinol one) 12-07 00:00: 00 No 40mg [facility] [place] Thyroid 60 MG [place] Thyroid 60 MG No 1{table t_on_an _empty_ stomach } QD [place] Thyroid 60 MG predniSONE 10 MG predniSONE 10 MG No 1{table t} QD predniSONE 10 MG Astepro 205.5 MCG/SPRAY Astepro 205.5 MCG/SPRAY No 2{spray s_in_ea ch_nost ril} QD Astepro 205.5 MCG/SPRAY Tamsulosin HCl 0.4 MG Tamsulosin HCl 0.4 MG No Tamsulosin HCl 0.4 MG Breo Ellipta 200-25 MCG/ACT Breo Ellipta 200-25 MCG/ACT No Breo Ellipta 200-25 MCG/ACT Immunizations Ordered Immunization Name Filled Immunization Name Date Status Comments Source Pneumovax (PPSV23) Pneumovax (PPSV23) 2021-09-15 15:17:00 Completed [facility] Pneumovax (PPSV23) Pneumovax (PPSV23) 2021-09-15 15:17:00 Completed [facility] Pneumovax (PPSV23) Pneumovax (PPSV23) 2021-09-15 15:17:00 Completed [facility] Pneumovax (PPSV23) Pneumovax (PPSV23) 2021-09-15 15:17:00 Completed [facility] Pneumovax (PPSV23) Pneumovax (PPSV23) 2021-09-15 15:17:00 Completed [facility] Pneumovax (PPSV23) Pneumovax (PPSV23) 2021-09-15 15:17:00 Completed [facility] Pneumovax (PPSV23) Pneumovax (PPSV23) 2021-09-15 15:17:00 Completed [facility] Pneumovax (PPSV23) Pneumovax (PPSV23) 2021-09-15 15:17:00 Completed [facility] Pneumovax (PPSV23) Pneumovax (PPSV23) 2021-09-15 15:17:00 Completed [facility] Pneumovax (PPSV23) Pneumovax (PPSV23) 2021-09-15 15:17:00 Completed [facility] Pneumovax (PPSV23) Pneumovax (PPSV23) 2021-09-15 15:17:00 Completed [facility] Pneumovax (PPSV23) Pneumovax (PPSV23) 2021-09-15 15:17:00 Completed [facility] Pneumovax (PPSV23) Pneumovax (PPSV23) 2021-09-15 15:17:00 Completed [facility] Pneumovax (PPSV23) Pneumovax (PPSV23) 2021-09-15 15:17:00 Completed [facility] Pneumovax (PPSV23) Pneumovax (PPSV23) 2021-09-15 15:17:00 Completed [facility] Pneumovax (PPSV23) Pneumovax (PPSV23) 2021-09-15 15:17:00 Completed [facility] Pneumovax (PPSV23) Pneumovax (PPSV23) 2021-09-15 15:17:00 Completed [facility] Pneumovax (PPSV23) Pneumovax (PPSV23) 2021-09-15 15:17:00 Completed [facility] Pneumovax (PPSV23) Pneumovax (PPSV23) 2021-09-15 15:17:00 Completed [facility] Pneumovax (PPSV23) Pneumovax (PPSV23) 2021-09-15 15:17:00 Completed [facility] Pneumovax (PPSV23) Pneumovax (PPSV23) 2021-09-15 15:17:00 Completed [facility] Pneumovax (PPSV23) Pneumovax (PPSV23) 2021-09-15 15:17:00 Completed [facility] Pneumovax (PPSV23) Pneumovax (PPSV23) 2021-09-15 15:17:00 Completed [facility] Pneumovax (PPSV23) Pneumovax (PPSV23) 2021-09-15 15:17:00 Completed [facility] Pneumovax (PPSV23) Pneumovax (PPSV23) 2021-09-15 15:17:00 Completed [facility] Pneumovax (PPSV23) Pneumovax (PPSV23) 2021-09-15 15:17:00 Completed [facility] Pneumovax (PPSV23) Pneumovax (PPSV23) 2021-09-15 15:17:00 Completed [facility] Pneumovax (PPSV23) Pneumovax (PPSV23) 2021-09-15 15:17:00 Completed [facility] Pneumovax (PPSV23) Pneumovax (PPSV23) 2021-09-15 15:17:00 Completed [facility] Pneumovax (PPSV23) Pneumovax (PPSV23) 2021-09-15 15:17:00 Completed [facility] Pneumovax (PPSV23) Pneumovax (PPSV23) 2021-09-15 15:17:00 Completed [facility] Pneumovax (PPSV23) Pneumovax (PPSV23) 2021-09-15 15:17:00 Completed [facility] Pneumovax (PPSV23) Pneumovax (PPSV23) 2021-09-15 15:17:00 Completed [facility] Pneumovax (PPSV23) Pneumovax (PPSV23) Unknown Completed [facility] Pneumovax (PPSV23) Pneumovax (PPSV23) Unknown Completed [facility] Pneumovax (PPSV23) Pneumovax (PPSV23) Unknown Completed [facility] Pneumovax (PPSV23) Pneumovax (PPSV23) Unknown Completed [facility] Pneumovax (PPSV23) Pneumovax (PPSV23) Unknown Completed [facility] Pneumovax (PPSV23) Pneumovax (PPSV23) Unknown Completed [facility] Pneumovax (PPSV23) Pneumovax (PPSV23) Unknown Completed [facility] Pneumovax (PPSV23) Pneumovax (PPSV23) Unknown Completed [facility] Pneumovax (PPSV23) Pneumovax (PPSV23) Unknown Completed [facility] Pneumovax (PPSV23) Pneumovax (PPSV23) Unknown Completed [facility] Pneumovax (PPSV23) Pneumovax (PPSV23) Unknown Completed [facility] Pneumovax (PPSV23) Pneumovax (PPSV23) Unknown Completed [facility] Pneumovax (PPSV23) Pneumovax (PPSV23) Unknown Completed [facility] Pneumovax (PPSV23) Pneumovax (PPSV23) Unknown Completed [facility] Pneumovax (PPSV23) Pneumovax (PPSV23) Unknown Completed [facility] Pneumovax (PPSV23) Pneumovax (PPSV23) Unknown Completed [facility] Pneumovax (PPSV23) Pneumovax (PPSV23) Unknown Completed [facility] Pneumovax (PPSV23) Pneumovax (PPSV23) Unknown Completed [facility] Pneumovax (PPSV23) Pneumovax (PPSV23) Unknown Completed [facility] Pneumovax (PPSV23) Pneumovax (PPSV23) Unknown Completed [facility] Pneumovax (PPSV23) Pneumovax (PPSV23) Unknown Completed [facility] Pneumovax (PPSV23) Pneumovax (PPSV23) Unknown Completed [facility] Pneumovax (PPSV23) Pneumovax (PPSV23) Unknown Completed [facility] Pneumovax (PPSV23) Pneumovax (PPSV23) Unknown Completed [facility] Pneumovax (PPSV23) Pneumovax (PPSV23) Unknown Completed [facility] Pneumovax (PPSV23) Pneumovax (PPSV23) Unknown Completed [facility] Pneumovax (PPSV23) Pneumovax (PPSV23) Unknown Completed [facility] Pneumovax (PPSV23) Pneumovax (PPSV23) Unknown Completed [facility] Pneumovax (PPSV23) Pneumovax (PPSV23) Unknown Completed [facility] Pneumovax (PPSV23) Pneumovax (PPSV23) Unknown Completed [facility] Pneumovax (PPSV23) Pneumovax (PPSV23) Unknown Completed [facility] Pneumovax (PPSV23) Pneumovax (PPSV23) Unknown Completed [facility] Pneumovax (PPSV23) Pneumovax (PPSV23) Unknown Completed [facility] Pneumovax (PPSV23) Pneumovax (PPSV23) Unknown Completed [facility] Pneumovax (PPSV23) Pneumovax (PPSV23) Unknown Completed [facility] Pneumovax (PPSV23) Pneumovax (PPSV23) Unknown Completed [facility] Pneumovax (PPSV23) Pneumovax (PPSV23) Unknown Completed [facility] Pneumovax (PPSV23) Pneumovax (PPSV23) Unknown Completed [facility] Pneumovax (PPSV23) Pneumovax (PPSV23) Unknown Completed [facility] Fluad (aIIV4) - SDS - 0.5mL Fluad (aIIV4) - SDS - 0.5mL Unknown Completed [facility] Pneumovax (PPSV23) Pneumovax (PPSV23) Unknown Completed [facility] Fluad (aIIV4) - SDS - 0.5mL Fluad (aIIV4) - SDS - 0.5mL Unknown Completed [facility] Pneumovax (PPSV23) Pneumovax (PPSV23) Unknown Completed [facility] Fluad (aIIV4) - SDS - 0.5mL Fluad (aIIV4) - SDS - 0.5mL Unknown Completed [facility] Pneumovax (PPSV23) Pneumovax (PPSV23) Unknown Completed [facility] Fluad (aIIV4) - SDS - 0.5mL Fluad (aIIV4) - SDS - 0.5mL Unknown Completed [facility] Pneumovax (PPSV23) Pneumovax (PPSV23) Unknown Completed [facility] Fluad (aIIV4) - SDS - 0.5mL Fluad (aIIV4) - SDS - 0.5mL Unknown Completed [facility] Pneumovax (PPSV23) Pneumovax (PPSV23) Unknown Completed [facility] Fluad (aIIV4) - SDS - 0.5mL Fluad (aIIV4) - SDS - 0.5mL Unknown Completed [facility] Pneumovax (PPSV23) Pneumovax (PPSV23) Unknown Completed [facility] Fluad (aIIV4) - SDS - 0.5mL Fluad (aIIV4) - SDS - 0.5mL Unknown Completed [facility] Pneumovax (PPSV23) Pneumovax (PPSV23) Unknown Completed [facility] Fluad (aIIV4) - SDS - 0.5mL Fluad (aIIV4) - SDS - 0.5mL Unknown Completed [facility] Pneumovax (PPSV23) Pneumovax (PPSV23) Unknown Completed [facility] Fluad (aIIV4) - SDS - 0.5mL Fluad (aIIV4) - SDS - 0.5mL Unknown Completed [facility] Pneumovax (PPSV23) Pneumovax (PPSV23) Unknown Completed [facility] Prevnar 20 (PCV20) Prevnar 20 (PCV20) Unknown Completed [facility] Fluad (aIIV4) - SDS - 0.5mL Fluad (aIIV4) - SDS - 0.5mL Unknown Completed [facility] Pneumovax (PPSV23) Pneumovax (PPSV23) Unknown Completed [facility] Prevnar 20 (PCV20) Prevnar 20 (PCV20) Unknown Completed [facility] Fluad (aIIV4) - SDS - 0.5mL Fluad (aIIV4) - SDS - 0.5mL Unknown Completed [facility] Pneumovax (PPSV23) Pneumovax (PPSV23) Unknown Completed [facility] Prevnar 20 (PCV20) Prevnar 20 (PCV20) Unknown Completed [facility] Fluad (aIIV4) - SDS - 0.5mL Fluad (aIIV4) - SDS - 0.5mL Unknown Completed [facility] Pneumovax (PPSV23) Pneumovax (PPSV23) Unknown Completed [facility] Prevnar 20 (PCV20) Prevnar 20 (PCV20) Unknown Completed [facility] Fluad (aIIV4) - SDS - 0.5mL Fluad (aIIV4) - SDS - 0.5mL Unknown Completed [facility] Pneumovax (PPSV23) Pneumovax (PPSV23) Unknown Completed [facility] Prevnar 20 (PCV20) Prevnar 20 (PCV20) Unknown Completed [facility] Fluad (aIIV4) - SDS - 0.5mL Fluad (aIIV4) - SDS - 0.5mL Unknown Completed [facility] Pneumovax (PPSV23) Pneumovax (PPSV23) Unknown Completed [facility] Prevnar 20 (PCV20) Prevnar 20 (PCV20) Unknown Completed [facility] Fluad (aIIV4) - SDS - 0.5mL Fluad (aIIV4) - SDS - 0.5mL Unknown Completed [facility] Pneumovax (PPSV23) Pneumovax (PPSV23) Unknown Completed [facility] Prevnar 20 (PCV20) Prevnar 20 (PCV20) Unknown Completed [facility] Fluad (aIIV4) - SDS - 0.5mL Fluad (aIIV4) - SDS - 0.5mL Unknown Completed [facility] Pneumovax (PPSV23) Pneumovax (PPSV23) Unknown Completed [facility] Prevnar 20 (PCV20) Prevnar 20 (PCV20) Unknown Completed [facility] Fluad (aIIV4) - SDS - 0.5mL Fluad (aIIV4) - SDS - 0.5mL Unknown Completed [facility] Pneumovax (PPSV23) Pneumovax (PPSV23) Unknown Completed [facility] Prevnar 20 (PCV20) Prevnar 20 (PCV20) Unknown Completed [facility] Fluad (aIIV4) - SDS - 0.5mL Fluad (aIIV4) - SDS - 0.5mL Unknown Completed [facility] Pneumovax (PPSV23) Pneumovax (PPSV23) Unknown Completed [facility] Prevnar 20 (PCV20) Prevnar 20 (PCV20) Unknown Completed [facility] Fluad (aIIV4) - SDS - 0.5mL Fluad (aIIV4) - SDS - 0.5mL Unknown Completed [facility] Pneumovax (PPSV23) Pneumovax (PPSV23) Unknown Completed [facility] Prevnar 20 (PCV20) Prevnar 20 (PCV20) Unknown Completed [facility] Fluad (aIIV4) - SDS - 0.5mL Fluad (aIIV4) - SDS - 0.5mL Unknown Completed [facility] Pneumovax (PPSV23) Pneumovax (PPSV23) Unknown Completed [facility] Prevnar 20 (PCV20) Prevnar 20 (PCV20) Unknown Completed [facility] Fluad (aIIV4) - SDS - 0.5mL Fluad (aIIV4) - SDS - 0.5mL Unknown Completed [facility] Pneumovax (PPSV23) Pneumovax (PPSV23) Unknown Completed [facility] Prevnar 20 (PCV20) Prevnar 20 (PCV20) Unknown Completed [facility] Fluad (aIIV4) - SDS - 0.5mL Fluad (aIIV4) - SDS - 0.5mL Unknown Completed [facility] Pneumovax (PPSV23) Pneumovax (PPSV23) Unknown Completed [facility] Prevnar 20 (PCV20) Prevnar 20 (PCV20) Unknown Completed [facility] Fluad (aIIV4) - SDS - 0.5mL Fluad (aIIV4) - SDS - 0.5mL Unknown Completed [facility] Pneumovax (PPSV23) Pneumovax (PPSV23) Unknown Completed [facility] Prevnar 20 (PCV20) Prevnar 20 (PCV20) Unknown Completed [facility] Fluad (aIIV4) - SDS - 0.5mL Fluad (aIIV4) - SDS - 0.5mL Unknown Completed [facility] Pneumovax (PPSV23) Pneumovax (PPSV23) Unknown Completed [facility] Prevnar 20 (PCV20) Prevnar 20 (PCV20) Unknown Completed [facility] Fluad (aIIV4) - SDS - 0.5mL Fluad (aIIV4) - SDS - 0.5mL Unknown Completed [facility] Pneumovax (PPSV23) Pneumovax (PPSV23) Unknown Completed [facility] Prevnar 20 (PCV20) Prevnar 20 (PCV20) Unknown Completed [facility] Fluad (aIIV4) - SDS - 0.5mL Fluad (aIIV4) - SDS - 0.5mL Unknown Completed [facility] Pneumovax (PPSV23) Pneumovax (PPSV23) Unknown Completed [facility] Prevnar 20 (PCV20) Prevnar 20 (PCV20) Unknown Completed [facility] Fluad (aIIV4) - SDS - 0.5mL Fluad (aIIV4) - SDS - 0.5mL Unknown Completed [facility] Pneumovax (PPSV23) Pneumovax (PPSV23) Unknown Completed [facility] Prevnar 20 (PCV20) Prevnar 20 (PCV20) Unknown Completed [facility] Fluad (aIIV4) - SDS - 0.5mL Fluad (aIIV4) - SDS - 0.5mL Unknown Completed [facility] Pneumovax (PPSV23) Pneumovax (PPSV23) Unknown Completed [facility] Prevnar 20 (PCV20) Prevnar 20 (PCV20) Unknown Completed [facility] Fluad (aIIV4) - SDS - 0.5mL Fluad (aIIV4) - SDS - 0.5mL Unknown Completed [facility] Pneumovax (PPSV23) Pneumovax (PPSV23) Unknown Completed [facility] Prevnar 20 (PCV20) Prevnar 20 (PCV20) Unknown Completed [facility] Fluad (aIIV4) - SDS - 0.5mL Fluad (aIIV4) - SDS - 0.5mL Unknown Completed [facility] Pneumovax (PPSV23) Pneumovax (PPSV23) Unknown Completed [facility] Prevnar 20 (PCV20) Prevnar 20 (PCV20) Unknown Completed [facility] Fluad (aIIV4) - SDS - 0.5mL Fluad (aIIV4) - SDS - 0.5mL Unknown Completed [facility] Pneumovax (PPSV23) Pneumovax (PPSV23) Unknown Completed [facility] Prevnar 20 (PCV20) Prevnar 20 (PCV20) Unknown Completed [facility] Fluad (aIIV4) - SDS - 0.5mL Fluad (aIIV4) - SDS - 0.5mL Unknown Completed [facility] Pneumovax (PPSV23) Pneumovax (PPSV23) Unknown Completed [facility] Prevnar 20 (PCV20) Prevnar 20 (PCV20) Unknown Completed [facility] Fluad (aIIV4) - SDS - 0.5mL Fluad (aIIV4) - SDS - 0.5mL Unknown Completed [facility] Pneumovax (PPSV23) Pneumovax (PPSV23) Unknown Completed [facility] Prevnar 20 (PCV20) Prevnar 20 (PCV20) Unknown Completed [facility] Fluad (aIIV4) - SDS - 0.5mL Fluad (aIIV4) - SDS - 0.5mL Unknown Completed [facility] Pneumovax (PPSV23) Pneumovax (PPSV23) Unknown Completed [facility] Prevnar 20 (PCV20) Prevnar 20 (PCV20) Unknown Completed [facility] Fluad (aIIV4) - SDS - 0.5mL Fluad (aIIV4) - SDS - 0.5mL Unknown Completed [facility] Pneumovax (PPSV23) Pneumovax (PPSV23) Unknown Completed [facility] Prevnar 20 (PCV20) Prevnar 20 (PCV20) Unknown Completed [facility] Fluad (aIIV4) - SDS - 0.5mL Fluad (aIIV4) - SDS - 0.5mL Unknown Completed [facility] Pneumovax (PPSV23) Pneumovax (PPSV23) Unknown Completed [facility] Vital Signs Vital Name Observation Time Observation Value Comments S ource height 2024-09-17 09:30:00 65 [in_i] [facility] weight 2024-09-17 09:30:00 166.6 [lb_av] Co [facility] temperature 2024-09-17 09:30:00 95.8 [degF] Com mon [facility] bmi 2024-09-17 09:30:00 27.72 kg/m2 Comm on [facility] oximetry 2024-09-17 09:30:00 96 % [facility] respiratory rate 2024-09-17 09:30:00 18 /min [facility] blood pressure systolic 2024-09-17 09:30:00 104 mm[Hg] [facility] blood pressure diastolic 2024-09-17 09:30:00 56 mm[Hg] [facility] height 2024-09-17 09:30:00 65 [in_i] Commo n [facility] weight 2024-09-17 09:30:00 166.6 [lb_av] Co [facility] temperature 2024-09-17 09:30:00 97.6 [degF] Com [facility] bmi 2024-09-17 09:30:00 27.72 kg/m2 Comm on [facility] oximetry 2024-09-17 09:30:00 96 % [facility] blood pressure systolic 2024-09-17 09:30:00 104 mm[Hg] [facility] blood pressure diastolic 2024-09-17 09:30:00 76 mm[Hg] [facility] height 2024-07-18 09:30:00 65 [in_i] Commo n [facility] weight 2024-07-18 09:30:00 160.4 [lb_av] [facility] temperature 2024-07-18 09:30:00 97.8 [degF] Com [facility] bmi 2024-07-18 09:30:00 26.69 kg/m2 Comm on [facility] blood pressure systolic 2024-07-18 09:30:00 120 mm[Hg] [facility] blood pressure diastolic 2024-07-18 09:30:00 76 mm[Hg] [facility] height 2024-07-11 11:00:00 65 [in_i] Commo n [facility] weight 2024-07-11 11:00:00 160.8 [lb_av] Co on [facility] temperature 2024-07-11 11:00:00 97.2 [degF] Com [facility] bmi 2024-07-11 11:00:00 26.76 kg/m2 Comm on [facility] blood pressure systolic 2024-07-11 11:00:00 116 mm[Hg] [facility] blood pressure diastolic 2024-07-11 11:00:00 72 mm[Hg] Common [facility] height 2024-07-04 10:30:00 65 [in_i] Commo n [facility] weight 2024-07-04 10:30:00 161.8 [lb_av] Co [facility] temperature 2024-07-04 10:30:00 98.4 [degF] Com [facility] bmi 2024-07-04 10:30:00 26.92 kg/m2 Comm on [facility] blood pressure systolic 2024-07-04 10:30:00 130 mm[Hg] [facility] blood pressure diastolic 2024-07-04 10:30:00 70 mm[Hg] [facility] height 2024-07-02 15:15:00 65 [in_i] Com[facility] weight 2024-07-02 15:15:00 161.8 [lb_av] Co on [facility] temperature 2024-07-02 15:15:00 98.3 [degF] Com [facility] bmi 2024-07-02 15:15:00 26.92 kg/m2 Comm on [facility] oximetry 2024-07-02 15:15:00 94 % [facility] respiratory rate 2024-07-02 15:15:00 18 /min [facility] blood pressure systolic 2024-07-02 15:15:00 130 mm[Hg] [facility] blood pressure diastolic 2024-07-02 15:15:00 66 mm[Hg] [facility] height 2024-06-27 11:00:00 65 [in_i] [facility] weight 2024-06-27 11:00:00 162.3 [lb_av] [facility] temperature 2024-06-27 11:00:00 97.6 [degF] Com [facility] bmi 2024-06-27 11:00:00 27.01 kg/m2 Comm on [facility] blood pressure systolic 2024-06-27 11:00:00 120 mm[Hg] [facility] blood pressure diastolic 2024-06-27 11:00:00 64 mm[Hg] [facility] height 2024-06-08 10:15:00 65 [in_i] [facility] weight 2024-06-08 10:15:00 162.6 [lb_av] [facility] temperature 2024-06-08 10:15:00 97.4 [degF] Com [facility] bmi 2024-06-08 10:15:00 27.06 kg/m2 Comm on [facility] blood pressure systolic 2024-06-08 10:15:00 118 mm[Hg] [facility] blood pressure diastolic 2024-06-08 10:15:00 62 mm[Hg] [facility] height 2024-06-05 13:40:00 65 [in_i] [facility] weight 2024-06-05 13:40:00 162.8 [lb_av] [facility] temperature 2024-06-05 13:40:00 97.2 [degF] Com [facility] bmi 2024-06-05 13:40:00 27.09 kg/m2 Comm on [facility] oximetry 2024-06-05 13:40:00 98 % [facility] respiratory rate 2024-06-05 13:40:00 18 /min [facility] blood pressure systolic 2024-06-05 13:40:00 117 mm[Hg] [facility] blood pressure diastolic 2024-06-05 13:40:00 60 mm[Hg] [facility] height 2024-05-10 10:00:00 65 [in_i] [facility] weight 2024-05-10 10:00:00 158.4 [lb_av] Co [facility] temperature 2024-05-10 10:00:00 97.0 [degF] Com [facility] bmi 2024-05-10 10:00:00 26.36 kg/m2 Comm on [facility] oximetry 2024-05-10 10:00:00 97 % [facility] respiratory rate 2024-05-10 10:00:00 18 /min [facility] blood pressure systolic 2024-05-10 10:00:00 117 mm[Hg] [facility] blood pressure diastolic 2024-05-10 10:00:00 58 mm[Hg] [facility] height 2024-04-30 10:40:00 65 [in_i] Com[facility] weight 2024-04-30 10:40:00 160.0 [lb_av] Co [facility] temperature 2024-04-30 10:40:00 97.0 [degF] Com [facility] bmi 2024-04-30 10:40:00 26.62 kg/m2 Comm on [facility] oximetry 2024-04-30 10:40:00 97 % [facility] respiratory rate 2024-04-30 10:40:00 18 /min [facility] blood pressure systolic 2024-04-30 10:40:00 137 mm[Hg] [facility] blood pressure diastolic 2024-04-30 10:40:00 68 mm[Hg] [facility] height 2024-04-17 09:10:00 65 [in_i] [facility] weight 2024-04-17 09:10:00 160.2 [lb_av] [facility] temperature 2024-04-17 09:10:00 96.4 [degF] Com [facility] bmi 2024-04-17 09:10:00 26.66 kg/m2 Comm on [facility] oximetry 2024-04-17 09:10:00 97 % [facility] blood pressure systolic 2024-04-17 09:10:00 122 mm[Hg] [facility] blood pressure diastolic 2024-04-17 09:10:00 56 mm[Hg] [facility] height 2024-04-17 09:10:00 65 [in_i] [facility] weight 2024-04-17 09:10:00 160.2 [lb_av] [facility] temperature 2024-04-17 09:10:00 96.4 [degF] Com [facility] bmi 2024-04-17 09:10:00 26.66 kg/m2 Comm on [facility] oximetry 2024-04-17 09:10:00 97 % [facility] blood pressure systolic 2024-04-17 09:10:00 122 mm[Hg] [facility] blood pressure diastolic 2024-04-17 09:10:00 56 mm[Hg] Common [facility] height 2024-04-12 08:00:00 65 [in_i] Com[facility] n [facility] weight 2024-04-12 08:00:00 158.0 [lb_av] Co [facility] temperature 2024-04-12 08:00:00 97.0 [degF] Com [facility] bmi 2024-04-12 08:00:00 26.29 kg/m2 Comm on [facility] oximetry 2024-04-12 08:00:00 98 % [facility] respiratory rate 2024-04-12 08:00:00 17 /min [facility] blood pressure systolic 2024-04-12 08:00:00 119 mm[Hg] Common [facility] blood pressure diastolic 2024-04-12 08:00:00 57 mm[Hg] Common [facility] height 2024-04-03 09:40:00 65 [in_i] Com[facility] n [facility] weight 2024-04-03 09:40:00 160.0 [lb_av] Co [facility] temperature 2024-04-03 09:40:00 97.0 [degF] Com [facility] bmi 2024-04-03 09:40:00 26.62 kg/m2 Comm on [facility] oximetry 2024-04-03 09:40:00 98 % [facility] respiratory rate 2024-04-03 09:40:00 18 /min [facility] blood pressure systolic 2024-04-03 09:40:00 124 mm[Hg] [facility] blood pressure diastolic 2024-04-03 09:40:00 60 mm[Hg] Common [facility] height 2024-03-08 10:15:00 65 [in_i] Com[facility] n [facility] weight 2024-03-08 10:15:00 163.2 [lb_av] Co [facility] temperature 2024-03-08 10:15:00 98.6 [degF] Com mon [facility] bmi 2024-03-08 10:15:00 27.15 kg/m2 Comm on [facility] oximetry 2024-03-08 10:15:00 99 % [facility] respiratory rate 2024-03-08 10:15:00 18 /min [facility] blood pressure systolic 2024-03-08 10:15:00 140 mm[Hg] [facility] blood pressure diastolic 2024-03-08 10:15:00 62 mm[Hg] [facility] height 2024-03-07 11:20:00 65 [in_i] Commo n [facility] weight 2024-03-07 11:20:00 162 [lb_av] Comm on [facility] temperature 2024-03-07 11:20:00 97 [degF] Comm on [facility] bmi 2024-03-07 11:20:00 26.96 kg/m2 Comm on [facility] oximetry 2024-03-07 11:20:00 98 % [facility] respiratory rate 2024-03-07 11:20:00 16 /min [facility] blood pressure systolic 2024-03-07 11:20:00 138 mm[Hg] [facility] blood pressure diastolic 2024-03-07 11:20:00 89 mm[Hg] Common [facility] height 2024-02-10 09:15:00 65 [in_i] Com[facility] n [facility] weight 2024-02-10 09:15:00 161.4 [lb_av] [facility] temperature 2024-02-10 09:15:00 98.0 [degF] Com mon [facility] bmi 2024-02-10 09:15:00 26.86 kg/m2 Comm on [facility] oximetry 2024-02-10 09:15:00 96 % [facility] respiratory rate 2024-02-10 09:15:00 18 /min [facility] blood pressure systolic 2024-02-10 09:15:00 127 mm[Hg] [facility] blood pressure diastolic 2024-02-10 09:15:00 81 mm[Hg] [facility] height 2023-12-29 13:00:00 65 [in_i] Commo n [facility] weight 2023-12-29 13:00:00 166 [lb_av] Comm on [facility] temperature 2023-12-29 13:00:00 98.3 [degF] Com mon [facility] bmi 2023-12-29 13:00:00 27.62 kg/m2 Comm on [facility] blood pressure systolic 2023-12-29 13:00:00 120 mm[Hg] [facility] blood pressure diastolic 2023-12-29 13:00:00 71 mm[Hg] [facility] height 2023-12-22 10:15:00 65 [in_i] Commo n [facility] weight 2023-12-22 10:15:00 163.2 [lb_av] [facility] temperature 2023-12-22 10:15:00 97.2 [degF] Com mon [facility] bmi 2023-12-22 10:15:00 27.15 kg/m2 Comm on [facility] oximetry 2023-12-22 10:15:00 96 % [facility] respiratory rate 2023-12-22 10:15:00 18 /min [facility] blood pressure systolic 2023-12-22 10:15:00 111 mm[Hg] Common [facility] blood pressure diastolic 2023-12-22 10:15:00 66 mm[Hg] [facility] height 2023-12-14 10:10:00 65 [in_i] Commo n [facility] weight 2023-12-14 10:10:00 161.0 [lb_av] Co [facility] temperature 2023-12-14 10:10:00 98.5 [degF] Com mon [facility] bmi 2023-12-14 10:10:00 26.79 kg/m2 Comm on [facility] oximetry 2023-12-14 10:10:00 97 % [facility] respiratory rate 2023-12-14 10:10:00 18 /min [facility] blood pressure systolic 2023-12-14 10:10:00 120 mm[Hg] [facility] blood pressure diastolic 2023-12-14 10:10:00 76 mm[Hg] [facility] height 2023-12-07 13:45:00 65 [in_i] Commo n [facility] weight 2023-12-07 13:45:00 163 [lb_av] Comm on [facility] temperature 2023-12-07 13:45:00 98.6 [degF] Com mon [facility] bmi 2023-12-07 13:45:00 27.12 kg/m2 Comm on [facility] oximetry 2023-12-07 13:45:00 99 % [facility] respiratory rate 2023-12-07 13:45:00 18 /min [facility] blood pressure systolic 2023-12-07 13:45:00 136 mm[Hg] [facility] blood pressure diastolic 2023-12-07 13:45:00 78 mm[Hg] [facility] height 2023-11-15 08:00:00 65 [in_i] Com[facility] n [facility] weight 2023-11-15 08:00:00 163.1 [lb_av] Co [facility] temperature 2023-11-15 08:00:00 97.6 [degF] Com [facility] bmi 2023-11-15 08:00:00 27.14 kg/m2 Comm on [facility] oximetry 2023-11-15 08:00:00 99 % [facility] respiratory rate 2023-11-15 08:00:00 18 /min [facility] blood pressure systolic 2023-11-15 08:00:00 140 mm[Hg] [facility] blood pressure diastolic 2023-11-15 08:00:00 73 mm[Hg] [facility] blood pressure systolic 2023-10-28 09:00:00 140 mm[Hg] [facility] blood pressure diastolic 2023-10-28 09:00:00 69 mm[Hg] [facility] height 2023-10-28 09:00:00 65 [in_i] Com[facility] weight 2023-10-28 09:00:00 163.4 [lb_av] Co [facility] temperature 2023-10-28 09:00:00 97.5 [degF] Com [facility] bmi 2023-10-28 09:00:00 27.19 kg/m2 Comm on [facility] oximetry 2023-10-28 09:00:00 99 % [facility] respiratory rate 2023-10-28 09:00:00 18 /min [facility] height 2023-10-24 15:30:00 65 [in_i] Com[facility] weight 2023-10-24 15:30:00 163.2 [lb_av] Co [facility] temperature 2023-10-24 15:30:00 97.3 [degF] Com [facility] bmi 2023-10-24 15:30:00 27.15 kg/m2 Comm on [facility] oximetry 2023-10-24 15:30:00 98 % [facility] respiratory rate 2023-10-24 15:30:00 18 /min [facility] blood pressure systolic 2023-10-24 15:30:00 142 mm[Hg] Common [facility] blood pressure diastolic 2023-10-24 15:30:00 66 mm[Hg] [facility] height 2023-09-29 09:00:00 65 [in_i] Com[facility] n [facility] weight 2023-09-29 09:00:00 162.4 [lb_av] Co [facility] temperature 2023-09-29 09:00:00 97.6 [degF] Com [facility] bmi 2023-09-29 09:00:00 27.02 kg/m2 Comm on [facility] oximetry 2023-09-29 09:00:00 99 % [facility] blood pressure systolic 2023-09-29 09:00:00 132 mm[Hg] Common [facility] blood pressure diastolic 2023-09-29 09:00:00 68 mm[Hg] Common [facility] height 2023-09-14 14:00:00 65 [in_i] Com[facility] n [facility] weight 2023-09-14 14:00:00 165.4 [lb_av] Co [facility] temperature 2023-09-14 14:00:00 97.8 [degF] Com [facility] bmi 2023-09-14 14:00:00 27.52 kg/m2 Comm on [facility] oximetry 2023-09-14 14:00:00 98 % [facility] blood pressure systolic 2023-09-14 14:00:00 120 mm[Hg] [facility] blood pressure diastolic 2023-09-14 14:00:00 62 mm[Hg] [facility] height 2023-09-14 14:00:00 65 [in_i] Commo n [facility] weight 2023-09-14 14:00:00 165.4 [lb_av] Co [facility] temperature 2023-09-14 14:00:00 97.8 [degF] Com [facility] bmi 2023-09-14 14:00:00 27.52 kg/m2 Comm on [facility] oximetry 2023-09-14 14:00:00 98 % [facility] blood pressure systolic 2023-09-14 14:00:00 120 mm[Hg] [facility] blood pressure diastolic 2023-09-14 14:00:00 62 mm[Hg] [facility] height 2023-09-08 17:15:00 65 [in_i] Commo n [facility] weight 2023-09-08 17:15:00 162 [lb_av] Comm on [facility] temperature 2023-09-08 17:15:00 98.6 [degF] Com mon [facility] bmi 2023-09-08 17:15:00 26.96 kg/m2 Comm on [facility] oximetry 2023-09-08 17:15:00 99 % [facility] respiratory rate 2023-09-08 17:15:00 18 /min [facility] blood pressure systolic 2023-09-08 17:15:00 120 mm[Hg] [facility] blood pressure diastolic 2023-09-08 17:15:00 80 mm[Hg] Common [facility] height 2023-08-31 09:00:00 65 [in_i] Com[facility] n [facility] weight 2023-08-31 09:00:00 163 [lb_av] Comm on [facility] temperature 2023-08-31 09:00:00 98.6 [degF] Com [facility] bmi 2023-08-31 09:00:00 27.12 kg/m2 Comm on [facility] height 2023-08-03 09:00:00 65 [in_i] Commo n [facility] weight 2023-08-03 09:00:00 163 [lb_av] Comm on [facility] temperature 2023-08-03 09:00:00 97.3 [degF] Com [facility] bmi 2023-08-03 09:00:00 27.12 kg/m2 Comm on [facility] oximetry 2023-08-03 09:00:00 96 % [facility] respiratory rate 2023-08-03 09:00:00 18 /min [facility] blood pressure systolic 2023-08-03 09:00:00 107 mm[Hg] [facility] blood pressure diastolic 2023-08-03 09:00:00 55 mm[Hg] [facility] height 2023-08-02 09:00:00 65 [in_i] Commo n [facility] weight 2023-08-02 09:00:00 163 [lb_av] Comm on [facility] temperature 2023-08-02 09:00:00 95.8 [degF] Com [facility] bmi 2023-08-02 09:00:00 27.12 kg/m2 Comm on [facility] oximetry 2023-08-02 09:00:00 98 % [facility] respiratory rate 2023-08-02 09:00:00 16 /min [facility] blood pressure systolic 2023-08-02 09:00:00 114 mm[Hg] [facility] blood pressure diastolic 2023-08-02 09:00:00 56 mm[Hg] Common [facility] height 2023-08-01 09:45:00 65 [in_i] Com[facility] n [facility] weight 2023-08-01 09:45:00 165 [lb_av] Comm on [facility] temperature 2023-08-01 09:45:00 97.8 [degF] Com [facility] bmi 2023-08-01 09:45:00 27.45 kg/m2 Comm on [facility] blood pressure systolic 2023-08-01 09:45:00 120 mm[Hg] Common [facility] blood pressure diastolic 2023-08-01 09:45:00 78 mm[Hg] Common [facility] height 2023-07-27 09:15:00 65 [in_i] Commo n [facility] weight 2023-07-27 09:15:00 166.2 [lb_av] Co [facility] temperature 2023-07-27 09:15:00 97.2 [degF] Com [facility] bmi 2023-07-27 09:15:00 27.65 kg/m2 Comm on [facility] oximetry 2023-07-27 09:15:00 95 % [facility] respiratory rate 2023-07-27 09:15:00 17 /min [facility] blood pressure systolic 2023-07-27 09:15:00 101 mm[Hg] [facility] blood pressure diastolic 2023-07-27 09:15:00 61 mm[Hg] [facility] height 2023-07-25 10:15:00 65 [in_i] [facility] weight 2023-07-25 10:15:00 164 [lb_av] Comm on [facility] temperature 2023-07-25 10:15:00 97.6 [degF] Com [facility] bmi 2023-07-25 10:15:00 27.29 kg/m2 Comm on [facility] blood pressure systolic 2023-07-25 10:15:00 122 mm[Hg] [facility] blood pressure diastolic 2023-07-25 10:15:00 70 mm[Hg] [facility] height 2023-07-18 10:15:00 65 [in_i] [facility] weight 2023-07-18 10:15:00 163 [lb_av] Comm on [facility] temperature 2023-07-18 10:15:00 98.1 [degF] Com [facility] bmi 2023-07-18 10:15:00 27.12 kg/m2 Comm on [facility] blood pressure systolic 2023-07-18 10:15:00 120 mm[Hg] [facility] blood pressure diastolic 2023-07-18 10:15:00 70 mm[Hg] Common [facility] height 2023-05-25 10:15:00 65 [in_i] Com[facility] n [facility] weight 2023-05-25 10:15:00 164 [lb_av] Comm on [facility] temperature 2023-05-25 10:15:00 97.8 [degF] Com [facility] bmi 2023-05-25 10:15:00 27.29 kg/m2 Comm on [facility] blood pressure systolic 2023-05-25 10:15:00 122 mm[Hg] [facility] blood pressure diastolic 2023-05-25 10:15:00 68 mm[Hg] [facility] height 2023-05-24 10:30:00 65 [in_i] [facility] weight 2023-05-24 10:30:00 163.5 [lb_av] [facility] temperature 2023-05-24 10:30:00 97.7 [degF] Com [facility] bmi 2023-05-24 10:30:00 27.2 kg/m2 [facility] oximetry 2023-05-24 10:30:00 96 % [facility] respiratory rate 2023-05-24 10:30:00 17 /min [facility] blood pressure systolic 2023-05-24 10:30:00 116 mm[Hg] [facility] blood pressure diastolic 2023-05-24 10:30:00 69 mm[Hg] [facility] height 2023-05-16 13:40:00 65 [in_i] [facility] weight 2023-05-16 13:40:00 163 [lb_av] Comm on [facility] temperature 2023-05-16 13:40:00 97.8 [degF] Com [facility] bmi 2023-05-16 13:40:00 27.12 kg/m2 [facility] oximetry 2023-05-16 13:40:00 8 % [facility] respiratory rate 2023-05-16 13:40:00 24 /min [facility] blood pressure systolic 2023-05-16 13:40:00 120 mm[Hg] [facility] blood pressure diastolic 2023-05-16 13:40:00 58 mm[Hg] [facility] height 2023-04-05 11:00:00 65 [in_i] [facility] weight 2023-04-05 11:00:00 160 [lb_av] Comm on [facility] temperature 2023-04-05 11:00:00 98.6 [degF] Com [facility] bmi 2023-04-05 11:00:00 26.62 kg/m2 [facility] oximetry 2023-04-05 11:00:00 99 % [facility] respiratory rate 2023-04-05 11:00:00 18 /min [facility] blood pressure systolic 2023-04-05 11:00:00 132 mm[Hg] [facility] blood pressure diastolic 2023-04-05 11:00:00 68 mm[Hg] Common [facility] height 2023-03-31 15:00:00 65 [in_i] [facility] weight 2023-03-31 15:00:00 160.6 [lb_av] [facility] temperature 2023-03-31 15:00:00 97.9 [degF] Com [facility] bmi 2023-03-31 15:00:00 26.72 kg/m2 [facility] oximetry 2023-03-31 15:00:00 97 % [facility] respiratory rate 2023-03-31 15:00:00 17 /min [facility] blood pressure systolic 2023-03-31 15:00:00 140 mm[Hg] [facility] blood pressure diastolic 2023-03-31 15:00:00 62 mm[Hg] Common [facility] height 2023-03-24 09:20:00 65 [in_i] [facility] weight 2023-03-24 09:20:00 162 [lb_av] Comm on [facility] bmi 2023-03-24 09:20:00 26.96 kg/m2 [facility] height 2023-03-15 09:30:00 65 [in_i] [facility] weight 2023-03-15 09:30:00 161.6 [lb_av] [facility] temperature 2023-03-15 09:30:00 97.9 [degF] Com [facility] bmi 2023-03-15 09:30:00 26.89 kg/m2 [facility] oximetry 2023-03-15 09:30:00 97 % [facility] respiratory rate 2023-03-15 09:30:00 17 /min [facility] blood pressure systolic 2023-03-15 09:30:00 101 mm[Hg] Common [facility] blood pressure diastolic 2023-03-15 09:30:00 58 mm[Hg] Common [facility] height 2023-02-23 11:00:00 65 [in_i] [facility] weight 2023-02-23 11:00:00 165 [lb_av] [facility] temperature 2023-02-23 11:00:00 98.6 [degF] Com [facility] bmi 2023-02-23 11:00:00 27.45 kg/m2 [facility] oximetry 2023-02-23 11:00:00 99 % [facility] respiratory rate 2023-02-23 11:00:00 18 /min [facility] blood pressure systolic 2023-02-23 11:00:00 136 mm[Hg] [facility] blood pressure diastolic 2023-02-23 11:00:00 80 mm[Hg] Common [facility] height 2023-02-08 11:00:00 65 [in_i] [facility] weight 2023-02-08 11:00:00 165 [lb_av] [facility] temperature 2023-02-08 11:00:00 98.6 [degF] Com [facility] bmi 2023-02-08 11:00:00 27.45 kg/m2 [facility] oximetry 2023-02-08 11:00:00 99 % [facility] respiratory rate 2023-02-08 11:00:00 18 /min [facility] blood pressure systolic 2023-02-08 11:00:00 138 mm[Hg] [facility] blood pressure diastolic 2023-02-08 11:00:00 61 mm[Hg] [facility] height 2022-12-23 15:30:00 65 [in_i] [facility] weight 2022-12-23 15:30:00 165 [lb_av] [facility] temperature 2022-12-23 15:30:00 97.6 [degF] Com [facility] bmi 2022-12-23 15:30:00 27.45 kg/m2 [facility] oximetry 2022-12-23 15:30:00 99 % [facility] respiratory rate 2022-12-23 15:30:00 18 /min [facility] blood pressure systolic 2022-12-23 15:30:00 141 mm[Hg] [facility] blood pressure diastolic 2022-12-23 15:30:00 61 mm[Hg] [facility] height 2022-12-20 10:00:00 65 [in_i] [facility] weight 2022-12-20 10:00:00 165 [lb_av] [facility] temperature 2022-12-20 10:00:00 97.6 [degF] Com [facility] bmi 2022-12-20 10:00:00 27.45 kg/m2 [facility] blood pressure systolic 2022-12-20 10:00:00 131 mm[Hg] [facility] blood pressure diastolic 2022-12-20 10:00:00 71 mm[Hg] [facility] height 2022-12-10 10:00:00 65 [in_i] [facility] weight 2022-12-10 10:00:00 166 [lb_av] [facility] temperature 2022-12-10 10:00:00 97.4 [degF] Com [facility] bmi 2022-12-10 10:00:00 27.62 kg/m2 [facility] blood pressure systolic 2022-12-10 10:00:00 130 mm[Hg] [facility] blood pressure diastolic 2022-12-10 10:00:00 78 mm[Hg] [facility] height 2022-12-02 10:00:00 65 [in_i] [facility] weight 2022-12-02 10:00:00 165 [lb_av] Comm on [facility] temperature 2022-12-02 10:00:00 98.0 [degF] Com [facility] bmi 2022-12-02 10:00:00 27.45 kg/m2 [facility] blood pressure systolic 2022-12-02 10:00:00 128 mm[Hg] [facility] blood pressure diastolic 2022-12-02 10:00:00 74 mm[Hg] [facility] height 2022-11-04 14:30:00 65 [in_i] [facility] weight 2022-11-04 14:30:00 165 [lb_av] Comm on [facility] temperature 2022-11-04 14:30:00 97.6 [degF] Com [facility] bmi 2022-11-04 14:30:00 27.45 kg/m2 [facility] oximetry 2022-11-04 14:30:00 98 % [facility] respiratory rate 2022-11-04 14:30:00 16 /min [facility] blood pressure systolic 2022-11-04 14:30:00 130 mm[Hg] [facility] blood pressure diastolic 2022-11-04 14:30:00 62 mm[Hg] [facility] height 2022-10-06 14:40:00 65 [in_i] [facility] weight 2022-10-06 14:40:00 163.6 [lb_av] Co [facility] temperature 2022-10-06 14:40:00 97.0 [degF] Com [facility] bmi 2022-10-06 14:40:00 27.22 kg/m2 [facility] oximetry 2022-10-06 14:40:00 98 % [facility] respiratory rate 2022-10-06 14:40:00 18 /min [facility] blood pressure systolic 2022-10-06 14:40:00 121 mm[Hg] [facility] blood pressure diastolic 2022-10-06 14:40:00 68 mm[Hg] [facility] height 2022-09-15 09:20:00 65 [in_i] [facility] weight 2022-09-15 09:20:00 167.1 [lb_av] Co [facility] temperature 2022-09-15 09:20:00 97.1 [degF] Com [facility] bmi 2022-09-15 09:20:00 27.8 kg/m2 [facility] oximetry 2022-09-15 09:20:00 99 % [facility] respiratory rate 2022-09-15 09:20:00 18 /min [facility] blood pressure systolic 2022-09-15 09:20:00 119 mm[Hg] [facility] blood pressure diastolic 2022-09-15 09:20:00 68 mm[Hg] [facility] height 2022-09-15 09:30:00 65 [in_i] [facility] weight 2022-09-15 09:30:00 167.1 [lb_av] [facility] temperature 2022-09-15 09:30:00 97.1 [degF] Com [facility] bmi 2022-09-15 09:30:00 27.8 kg/m2 [facility] oximetry 2022-09-15 09:30:00 99 % [facility] respiratory rate 2022-09-15 09:30:00 18 /min [facility] blood pressure systolic 2022-09-15 09:30:00 119 mm[Hg] [facility] blood pressure diastolic 2022-09-15 09:30:00 68 mm[Hg] [facility] height 2022-08-09 08:15:00 65 [in_i] [facility] weight 2022-08-09 08:15:00 167 [lb_av] [facility] on [facility] temperature 2022-08-09 08:15:00 98.0 [degF] Com [facility] bmi 2022-08-09 08:15:00 27.79 kg/m2 [facility] blood pressure systolic 2022-08-09 08:15:00 128 mm[Hg] [facility] blood pressure diastolic 2022-08-09 08:15:00 80 mm[Hg] [facility] height 2022-07-14 10:00:00 65 [in_i] [facility] weight 2022-07-14 10:00:00 167 [lb_av] Comm on [facility] temperature 2022-07-14 10:00:00 97.6 [degF] Com [facility] bmi 2022-07-14 10:00:00 27.79 kg/m2 [facility] blood pressure systolic 2022-07-14 10:00:00 130 mm[Hg] [facility] blood pressure diastolic 2022-07-14 10:00:00 74 mm[Hg] [facility] height 2022-07-12 09:30:00 65 [in_i] [facility] weight 2022-07-12 09:30:00 167 [lb_av] Comm on [facility] temperature 2022-07-12 09:30:00 98.3 [degF] Com [facility] bmi 2022-07-12 09:30:00 27.79 kg/m2 [facility] blood pressure systolic 2022-07-12 09:30:00 132 mm[Hg] [facility] blood pressure diastolic 2022-07-12 09:30:00 72 mm[Hg] [facility] height 2022-07-02 09:30:00 65 [in_i] [facility] weight 2022-07-02 09:30:00 168 [lb_av] Comm on [facility] temperature 2022-07-02 09:30:00 97.3 [degF] Com [facility] bmi 2022-07-02 09:30:00 27.95 kg/m2 [facility] blood pressure systolic 2022-07-02 09:30:00 130 mm[Hg] [facility] blood pressure diastolic 2022-07-02 09:30:00 70 mm[Hg] Common [facility] height 2022-06-14 09:00:00 65 [in_i] [facility] weight 2022-06-14 09:00:00 168 [lb_av] Comm on [facility] temperature 2022-06-14 09:00:00 97.2 [degF] Com [facility] bmi 2022-06-14 09:00:00 27.95 kg/m2 [facility] blood pressure systolic 2022-06-14 09:00:00 128 mm[Hg] [facility] blood pressure diastolic 2022-06-14 09:00:00 70 mm[Hg] Common [facility] height 2022-06-10 10:00:00 65 [in_i] [facility] weight 2022-06-10 10:00:00 168.4 [lb_av] [facility] temperature 2022-06-10 10:00:00 97.7 [degF] Com [facility] bmi 2022-06-10 10:00:00 28.02 kg/m2 [facility] respiratory rate 2022-06-10 10:00:00 18 /min [facility] blood pressure systolic 2022-06-10 10:00:00 123 mm[Hg] [facility] blood pressure diastolic 2022-06-10 10:00:00 65 mm[Hg] Common [facility] height 2022-05-17 09:45:00 65 [in_i] [facility] weight 2022-05-17 09:45:00 166 [lb_av] Comm on [facility] temperature 2022-05-17 09:45:00 97.4 [degF] Com [facility] bmi 2022-05-17 09:45:00 27.62 kg/m2 [facility] blood pressure systolic 2022-05-17 09:45:00 124 mm[Hg] [facility] blood pressure diastolic 2022-05-17 09:45:00 70 mm[Hg] [facility] height 2022-04-28 14:45:00 65 [in_i] [facility] weight 2022-04-28 14:45:00 166.9 [lb_av] [facility] temperature 2022-04-28 14:45:00 97.3 [degF] Com [facility] bmi 2022-04-28 14:45:00 27.77 kg/m2 [facility] blood pressure systolic 2022-04-28 14:45:00 122 mm[Hg] [facility] blood pressure diastolic 2022-04-28 14:45:00 61 mm[Hg] [facility] height 2022-04-07 14:30:00 65 [in_i] [facility] weight 2022-04-07 14:30:00 166.9 [lb_av] [facility] temperature 2022-04-07 14:30:00 98.0 [degF] Com [facility] bmi 2022-04-07 14:30:00 27.77 kg/m2 [facility] blood pressure systolic 2022-04-07 14:30:00 118 mm[Hg] [facility] blood pressure diastolic 2022-04-07 14:30:00 60 mm[Hg] Common [facility] height 2022-04-05 13:20:00 65 [in_i] [facility] weight 2022-04-05 13:20:00 166.9 [lb_av] [facility] temperature 2022-04-05 13:20:00 97.3 [degF] Com [facility] bmi 2022-04-05 13:20:00 27.77 kg/m2 [facility] oximetry 2022-04-05 13:20:00 99 % [facility] respiratory rate 2022-04-05 13:20:00 16 /min [facility] blood pressure systolic 2022-04-05 13:20:00 118 mm[Hg] [facility] blood pressure diastolic 2022-04-05 13:20:00 60 mm[Hg] [facility] height 2022-03-17 11:00:00 65 [in_i] [facility] weight 2022-03-17 11:00:00 165 [lb_av] Comm on [facility] temperature 2022-03-17 11:00:00 98.2 [degF] Com [facility] bmi 2022-03-17 11:00:00 27.45 kg/m2 [facility] oximetry 2022-03-17 11:00:00 98 % [facility] respiratory rate 2022-03-17 11:00:00 16 /min [facility] blood pressure systolic 2022-03-17 11:00:00 138 mm[Hg] [facility] blood pressure diastolic 2022-03-17 11:00:00 63 mm[Hg] [facility] height 2022-03-10 08:00:00 65 [in_i] [facility] weight 2022-03-10 08:00:00 166.4 [lb_av] [facility] temperature 2022-03-10 08:00:00 97.7 [degF] Com [facility] bmi 2022-03-10 08:00:00 27.69 kg/m2 [facility] oximetry 2022-03-10 08:00:00 99 % [facility] respiratory rate 2022-03-10 08:00:00 18 /min [facility] blood pressure systolic 2022-03-10 08:00:00 110 mm[Hg] [facility] blood pressure diastolic 2022-03-10 08:00:00 59 mm[Hg] [facility] height 2022-02-24 09:00:00 66 [in_i] [facility] weight 2022-02-24 09:00:00 165 [lb_av] Comm on [facility] bmi 2022-02-24 09:00:00 26.63 kg/m2 [facility] blood pressure systolic 2022-02-24 09:00:00 110 mm[Hg] [facility] blood pressure diastolic 2022-02-24 09:00:00 70 mm[Hg] [facility] height 2022-02-15 11:00:00 66 [in_i] [facility] weight 2022-02-15 11:00:00 165 [lb_av] Comm on [facility] bmi 2022-02-15 11:00:00 26.63 kg/m2 [facility] blood pressure systolic 2022-02-15 11:00:00 108 mm[Hg] [facility] blood pressure diastolic 2022-02-15 11:00:00 70 mm[Hg] [facility] height 2022-02-08 09:15:00 66 [in_i] [facility] weight 2022-02-08 09:15:00 165.1 [lb_av] [facility] bmi 2022-02-08 09:15:00 26.64 kg/m2 [facility] blood pressure systolic 2022-02-08 09:15:00 107 mm[Hg] [facility] blood pressure diastolic 2022-02-08 09:15:00 67 mm[Hg] [facility] height 2021-12-22 10:00:00 66 [in_i] [facility] weight 2021-12-22 10:00:00 165.2 [lb_av] [facility] temperature 2021-12-22 10:00:00 96.7 [degF] Com [facility] bmi 2021-12-22 10:00:00 26.66 kg/m2 [facility] oximetry 2021-12-22 10:00:00 98 % [facility] respiratory rate 2021-12-22 10:00:00 16 /min [facility] blood pressure systolic 2021-12-22 10:00:00 136 mm[Hg] [facility] blood pressure diastolic 2021-12-22 10:00:00 64 mm[Hg] [facility] height 2021-12-07 09:00:00 66 [in_i] [facility] weight 2021-12-07 09:00:00 164 [lb_av] Comm on [facility] bmi 2021-12-07 09:00:00 26.47 kg/m2 [facility] blood pressure systolic 2021-12-07 09:00:00 118 mm[Hg] [facility] blood pressure diastolic 2021-12-07 09:00:00 70 mm[Hg] [facility] height 2021-11-19 08:30:00 66 [in_i] [facility] weight 2021-11-19 08:30:00 164.6 [lb_av] [facility] bmi 2021-11-19 08:30:00 26.56 kg/m2 [facility] blood pressure systolic 2021-11-19 08:30:00 112 mm[Hg] [facility] blood pressure diastolic 2021-11-19 08:30:00 62 mm[Hg] [facility] height 2021-11-13 11:15:00 66 [in_i] [facility] weight 2021-11-13 11:15:00 165 [lb_av] Comm on [facility] temperature 2021-11-13 11:15:00 98.2 [degF] Com mon [facility] bmi 2021-11-13 11:15:00 26.63 kg/m2 [facility] oximetry 2021-11-13 11:15:00 99 % [facility] respiratory rate 2021-11-13 11:15:00 16 /min [facility] blood pressure systolic 2021-11-13 11:15:00 132 mm[Hg] [facility] blood pressure diastolic 2021-11-13 11:15:00 60 mm[Hg] Common [facility] height 2021-09-10 08:50:00 66 [in_i] [facility] weight 2021-09-10 08:50:00 168.2 [lb_av] [facility] temperature 2021-09-10 08:50:00 97.3 [degF] Com mon [facility] bmi 2021-09-10 08:50:00 27.15 kg/m2 [facility] oximetry 2021-09-10 08:50:00 98 % [facility] respiratory rate 2021-09-10 08:50:00 18 /min [facility] blood pressure systolic 2021-09-10 08:50:00 144 mm[Hg] [facility] blood pressure diastolic 2021-09-10 08:50:00 67 mm[Hg] Common [facility] height 2021-09-10 09:10:00 66 [in_i] [facility] weight 2021-09-10 09:10:00 168.2 [lb_av] [facility] temperature 2021-09-10 09:10:00 97.3 [degF] Com mon [facility] bmi 2021-09-10 09:10:00 27.15 kg/m2 [facility] oximetry 2021-09-10 09:10:00 98 % [facility] respiratory rate 2021-09-10 09:10:00 18 /min [facility] blood pressure systolic 2021-09-10 09:10:00 144 mm[Hg] Common [facility] blood pressure diastolic 2021-09-10 09:10:00 67 mm[Hg] Common [facility] height 2021-09-04 11:30:00 66 [in_i] [facility] weight 2021-09-04 11:30:00 165 [lb_av] Comm on [facility] temperature 2021-09-04 11:30:00 97.3 [degF] Com mon [facility] bmi 2021-09-04 11:30:00 26.63 kg/m2 [facility] oximetry 2021-09-04 11:30:00 98 % [facility] respiratory rate 2021-09-04 11:30:00 18 /min [facility] blood pressure systolic 2021-09-04 11:30:00 131 mm[Hg] [facility] blood pressure diastolic 2021-09-04 11:30:00 61 mm[Hg] Common [facility] height 2021-08-24 16:30:00 66 [in_i] [facility] weight 2021-08-24 16:30:00 167.8 [lb_av] [facility] temperature 2021-08-24 16:30:00 97.7 [degF] Com [facility] bmi 2021-08-24 16:30:00 27.08 kg/m2 [facility] oximetry 2021-08-24 16:30:00 95 % [facility] respiratory rate 2021-08-24 16:30:00 18 /min [facility] blood pressure systolic 2021-08-24 16:30:00 146 mm[Hg] [facility] blood pressure diastolic 2021-08-24 16:30:00 69 mm[Hg] Common [facility] height 2021-06-26 09:40:00 66 [in_i] [facility] weight 2021-06-26 09:40:00 162.8 [lb_av] Co on [facility] temperature 2021-06-26 09:40:00 97.3 [degF] Com [facility] bmi 2021-06-26 09:40:00 26.27 kg/m2 Comm on [facility] oximetry 2021-06-26 09:40:00 96 % [facility] blood pressure systolic 2021-06-26 09:40:00 123 mm[Hg] [facility] [facility] blood pressure diastolic 2021-06-26 09:40:00 62 mm[Hg] [facility] Systolic (mm Hg) 2023-06-10 15:53:00 [facility] Diastolic (mm Hg) 2023-06-10 15:53:00 [facility] Heart Rate 2023-06-10 15:53:00 [facility] Height 2023-06-10 15:53:00 5 [ft_i] [facility] Weight 2023-06-10 15:53:00 [facility] BMI Calculated 2023-06-10 15:53:00 [facility] Systolic (mm Hg) 2023-02-04 14:51:00 [facility] Diastolic (mm Hg) 2023-02-04 14:51:00 [facility] Heart Rate 2023-02-04 14:51:00 [facility] Height 2023-02-04 14:51:00 5 [ft_i] [facility] Weight 2023-02-04 14:51:00 [facility] BMI Calculated 2023-02-04 14:51:00 [facility] Systolic (mm Hg) 2022-12-09 16:25:00 [facility] Diastolic (mm Hg) 2022-12-09 16:25:00 [facility] Heart Rate 2022-12-09 16:25:00 [facility] Height 2022-12-09 16:25:00 5 [ft_i] [facility] Weight 2022-12-09 16:25:00 [facility] BMI Calculated 2022-12-09 16:25:00 [facility] Systolic (mm Hg) 2022-10-28 19:19:00 [facility] Diastolic (mm Hg) 2022-10-28 19:19:00 [facility] Heart Rate 2022-10-28 19:19:00 [facility] Height 2022-10-28 19:19:00 5 [ft_i] [facility] Weight 2022-10-28 19:19:00 [facility] BMI Calculated 2022-10-28 19:19:00 [facility] Procedures Procedure Date / Time Performed Performing Clinicia n Source PVR 2024-07-02 00:00:00 [facility] PVR 2024-02-10 00:00:00 [facility] PVR 2023-12-22 00:00:00 [facility] PVR 2023-11-15 00:00:00 [facility] PVR 2023-10-28 00:00:00 [facility] PVR 2023-08-31 00:00:00 [facility] PVR 2023-08-01 00:00:00 [facility] PVR 2023-03-31 00:00:00 [facility] PVR 2022-12-23 00:00:00 [facility] Encounters Start Date/Time End Date/Time Encounter Type Admission Type Attending [facility] Care Facility Care Department Encounter ID Source 2024-06-05 09:57:00 Outpatient Flores, Ari STLMLC STLMLC [id number] [facility] 2024-04-30 09:34:00 Outpatient Flores, Ari STLMLC STLMLC [id number] [facility] 2024-04-16 10:09:00 Outpatient Flores, Ari STLMLC STLMLC [id number] [facility] 2024-04-03 08:31:00 Outpatient Flores, Ari STLMLC STLMLC [id number] [facility] 2024-03-07 09:44:00 Outpatient Flores, Ari STLMLC STLMLC [id number] [facility] 2023-12-30 08:08:00 Outpatient Flores, Ari STLMLC STLMLC [id number] [facility] 2023-12-07 10:03:00 Outpatient Flores, Ari STLMLC STLMLC [id number] [facility] 2023-08-03 09:06:00 Outpatient Flores, Ari STLMLC STLMLC [id number] [facility] 2023-08-01 16:31:00 Outpatient Flores, Ari STLMLC STLMLC [id number] [facility] 2023-07-28 11:09:00 Outpatient Flores, Ari STLMLC STLMLC [id number] [facility] 2023-07-25 10:20:00 Outpatient Flores, Ari STLMLC STLMLC [id number] [facility] 2023-05-25 13:22:00 Outpatient Flores, Ari STLMLC STLMLC [id number] [facility] 2023-05-23 14:14:00 Outpatient Flores, Ari STLMLC STLMLC [id number] [facility] 2023-03-23 16:40:00 Outpatient Flores, Ari STLMLC STLMLC [id number] [facility] 2023-03-11 10:30:00 Outpatient Flores, Ari STLMLC STLMLC [id number] [facility] 2022-10-04 09:26:00 Outpatient Flores, Ari STLMLC STLMLC [id number] [facility] 2022-06-15 16:26:00 Outpatient Flores, Ari STLMLC STLMLC [id number] [facility] 2022-06-01 10:35:01 Outpatient Flores, Ari STLMLC STLMLC [id number] [facility] 2022-04-08 10:53:00 Outpatient Flores, Ari STLMLC STLMLC [id number] [facility] 2022-03-01 09:02:00 Outpatient Flores, Ari STLMLC STLMLC [id number] [facility] 2022-02-15 10:50:01 Outpatient Flores, Ari STLMLC STLMLC [id number] [facility] 2021-11-18 08:43:01 Outpatient Flores, Ari STLMLC STLMLC [id number] [facility] 2021-11-16 11:47:00 Outpatient Flores, Ari STLMLC STLMLC [id number] [facility] 2021-11-12 14:19:00 Outpatient Flores, Ari STLMLC STLMLC [id number] [facility] 2021-09-16 14:30:48 Outpatient Flores, Ari STLMLC STLMLC [id number] [facility] 2021-09-16 14:08:53 Outpatient Flores, Ari STLMLC STLMLC [id number] [facility] 2021-09-16 13:51:26 Outpatient Flores, Ari STLMLC STLMLC [id number] [facility] 2021-09-16 13:50:30 Outpatient Flores, Ari STLMLC STLMLC [id number] [facility] 2021-09-16 13:49:26 Outpatient zloryTeadielo Jammie STLMLC STLMLC [id number] [facility] 2021-09-16 12:45:44 Outpatient zloryTello, Jammie STLMLC STLMLC [id number] [facility] 2021-09-16 12:43:09 Outpatient RosannaoKathies STLMLC STLMLC [id number] [facility] 2024-11-12 00:00:00 2024-11-12 00:00:00 (TEL) STLMLC STLMLC [id number] [facility] 2024-09-17 00:00:00 2024-09-17 00:00:00 OFFICE VISIT ESTAB PT LEVEL 4 STLMLC STLMLC [id number] [facility] 2024-09-17 00:00:00 2024-09-17 00:00:00 SUB ANNUAL [facility] WELLNESS VISIT STLMLC STLMLC [id number] [facility] 2024-09-17 00:00:00 2024-09-17 00:00:00 (TEL) STLMLC STLMLC [id number] [facility] 2024-08-07 00:00:00 2024-08-07 00:00:00 (TEL) STLMLC STLMLC [id number] [facility] 2024-07-18 00:00:00 2024-07-18 00:00:00 (IN/ASP) INJ ASP STLMLC STLMLC [id number] [facility] 2024-07-11 00:00:00 2024-07-11 00:00:00 (IN/ASP) INJ ASP STLMLC STLMLC [id number] [facility] 2024-07-06 00:00:00 2024-07-06 00:00:00 (TEL) STLMLC STLMLC [id number] [facility] 2024-07-06 00:00:00 2024-07-06 00:00:00 (TEL) STLMLC STLMLC [id number] [facility] 2024-07-04 00:00:00 2024-07-04 00:00:00 (IN/ASP) INJ ASP STLMLC STLMLC [id number] [facility] 2024-07-03 00:00:00 2024-07-03 00:00:00 (TEL) STLMLC STLMLC [id number] [facility] 2024-07-02 00:00:00 2024-07-02 00:00:00 OFFICE VISIT ESTAB PT LEVEL 3 STLMLC STLMLC [id number] [facility] 2024-06-27 00:00:00 2024-06-27 00:00:00 (ESTPT) Establishe d Patient STLMLC STLMLC [id number] [facility] 2024-06-08 00:00:00 2024-06-08 00:00:00 (TEL) STLMLC STLMLC [id number] [facility] 2024-06-08 00:00:00 2024-06-08 00:00:00 (F/U) Follow Up Visit STLMLC STLMLC [id number] [facility] 2024-06-07 00:00:00 2024-06-07 00:00:00 (TEL) STLMLC STLMLC [id number] [facility] 2024-06-05 00:00:00 2024-06-05 00:00:00 OFFICE VISIT ESTAB PT LEVEL 3 STLMLC STLMLC [id number] [facility] 2024-05-10 00:00:00 2024-05-10 00:00:00 (TEL) STLMLC STLMLC [id number] [facility] 2024-05-10 00:00:00 2024-05-10 00:00:00 (TEL) STLMLC STLMLC [id number] [facility] 2024-05-10 00:00:00 2024-05-10 00:00:00 OFFICE VISIT ESTAB PT LEVEL 4 STLMLC STLMLC [id number] [facility] 2024-04-30 00:00:00 2024-04-30 00:00:00 OFFICE VISIT ESTAB PT LEVEL 3 STLMLC STLMLC [id number] [facility] 2024-04-30 00:00:00 2024-04-30 00:00:00 (TEL) STLMLC STLMLC [id number] [facility] 2024-04-17 00:00:00 2024-04-17 00:00:00 OFFICE VISIT ESTAB PT LEVEL 4 STLMLC STLMLC [id number] [facility] 2024-04-12 00:00:00 2024-04-12 00:00:00 (TEL) STLMLC STLMLC [id number] [facility] 2024-04-12 00:00:00 2024-04-12 00:00:00 OFFICE VISIT ESTAB PT LEVEL 4 STLMLC STLMLC [id number] [facility] 2024-04-10 00:00:00 2024-04-10 00:00:00 (TEL) STLMLC STLMLC [id number] [facility] 2024-04-03 00:00:00 2024-04-03 00:00:00 (TEL) STLMLC STLMLC [id number] [facility] 2024-04-03 00:00:00 2024-04-03 00:00:00 OFFICE VISIT ESTAB PT LEVEL 3 STLMLC STLMLC [id number] [facility] 2024-03-11 00:00:00 2024-03-11 00:00:00 (TEL) STLMLC STLMLC [id number] [facility] 2024-03-08 00:00:00 2024-03-08 00:00:00 OFFICE VISIT ESTAB PT LEVEL 3 STLMLC STLMLC [id number] [facility] 2024-03-07 00:00:00 2024-03-07 00:00:00 (TEL) STLMLC STLMLC [id number] [facility] 2024-03-07 00:00:00 2024-03-07 00:00:00 (TEL) STLMLC STLMLC [id number] [facility] 2024-03-07 00:00:00 2024-03-07 00:00:00 OFFICE VISIT ESTAB PT LEVEL 3 STLMLC STLMLC [id number] [facility] 2024-02-10 00:00:00 2024-02-10 00:00:00 OFFICE VISIT ESTAB PT LEVEL 4 STLMLC STLMLC [id number] [facility] 2023-12-29 00:00:00 2023-12-29 00:00:00 (ESTPT) Establishe d Patient STLMLC STLMLC [id number] [facility] 2023-12-22 00:00:00 2023-12-22 00:00:00 OFFICE VISIT ESTAB PT LEVEL 3 STLMLC STLMLC [id number] [facility] 2023-12-14 00:00:00 2023-12-14 00:00:00 OFFICE VISIT ESTAB PT LEVEL 4 STLMLC STLMLC [id number] [facility] 2023-12-07 00:00:00 2023-12-07 00:00:00 (TEL) STLMLC STLMLC [id number] [facility] 2023-12-07 00:00:00 2023-12-07 00:00:00 OFFICE VISIT ESTAB PT LEVEL 3 STLMLC STLMLC [id number] [facility] 2023-11-15 00:00:00 2023-11-15 00:00:00 (NV) Nurse Visit STLMLC STLMLC [id number] [facility] 2023-11-08 00:00:00 2023-11-08 00:00:00 (TEL) STLMLC STLMLC [id number] [facility] 2023-10-28 00:00:00 2023-10-28 00:00:00 (NV) Nurse Visit STLMLC STLMLC [id number] [facility] 2023-10-27 00:00:00 2023-10-27 00:00:00 OFFICE VISIT ESTAB PT LEVEL 2 STLMLC STLMLC [id number] [facility] 2023-10-24 00:00:00 2023-10-24 00:00:00 OFFICE VISIT ESTAB PT LEVEL 2 STLMLC STLMLC [id number] [facility] 2023-09-29 00:00:00 2023-09-29 00:00:00 OFFICE VISIT ESTAB PT LEVEL 3 STLMLC STLMLC [id number] [facility] 2023-09-20 00:00:00 2023-09-20 00:00:00 (NV) Nurse Visit STLMLC STLMLC [id number] [facility] 2023-09-15 00:00:00 2023-09-15 00:00:00 (NV) Nurse Visit STLMLC STLMLC [id number] [facility] 2023-09-14 00:00:00 2023-09-14 00:00:00 (TEL) STLMLC STLMLC [id number] [facility] 2023-09-14 00:00:00 2023-09-14 00:00:00 OFFICE VISIT ESTAB PT LEVEL 4 STLMLC STLMLC [id number] [facility] 2023-09-14 00:00:00 2023-09-14 00:00:00 SUB ANNUAL [facility] WELLNESS VISIT STLMLC STLMLC [id number] [facility] 2023-09-12 00:00:00 2023-09-12 00:00:00 (NV) Nurse Visit STLMLC STLMLC [id number] [facility] 2023-09-09 13:15:00 2023-09-09 13:15:00 Outpatient MHIE MHIE [id number] Remberto Kline 2023-09-08 00:00:00 2023-09-08 00:00:00 OFFICE VISIT ESTAB PT LEVEL 4 STLMLC STLMLC [id number] [facility] 2023-09-07 00:00:00 2023-09-07 00:00:00 (TEL) STLMLC STLMLC [id number] [facility] 2023-09-01 00:00:00 2023-09-01 00:00:00 OFFICE VISIT ESTAB PT LEVEL 1 STLMLC STLMLC [id number] [facility] 2023-08-31 00:00:00 2023-08-31 00:00:00 OFFICE VISIT ESTAB PT LEVEL 3 STLMLC STLMLC [id number] [facility] 2023-08-24 00:00:00 2023-08-24 00:00:00 (TEL) STLMLC STLMLC [id number] [facility] 2023-08-19 00:00:00 2023-08-19 00:00:00 (TEL) STLMLC STLMLC [id number] [facility] 2023-08-16 00:00:00 2023-08-16 00:00:00 (NV) Nurse Visit STLMLC STLMLC [id number] [facility] 2023-08-12 00:00:00 2023-08-12 00:00:00 (TEL) STLMLC STLMLC [id number] [facility] 2023-08-03 00:00:00 2023-08-03 00:00:00 OFFICE VISIT ESTAB PT LEVEL 3 STLMLC STLMLC [id number] [facility] 2023-08-02 00:00:00 2023-08-02 00:00:00 OFFICE VISIT ESTAB PT LEVEL 3 STLMLC STLMLC [id number] [facility] 2023-08-02 00:00:00 2023-08-02 00:00:00 (TEL) STLMLC STLMLC [id number] [facility] 2023-08-01 00:00:00 2023-08-01 00:00:00 (TEL) STLMLC STLMLC [id number] [facility] 2023-08-01 00:00:00 2023-08-01 00:00:00 (NV) Nurse Visit STLMLC STLMLC [id number] [facility] 2023-08-01 00:00:00 2023-08-01 00:00:00 (TEL) STLMLC STLMLC [id number] [facility] 2023-08-01 00:00:00 2023-08-01 00:00:00 (IN/ASP) INJ ASP STLMLC STLMLC [id number] [facility] 2023-07-28 00:00:00 2023-07-28 00:00:00 (TEL) STLMLC STLMLC [id number] [facility] 2023-07-27 00:00:00 2023-07-27 00:00:00 OFFICE VISIT ESTAB PT LEVEL 4 STLMLC STLMLC [id number] [facility] 2023-07-27 00:00:00 2023-07-27 00:00:00 (TEL) STLMLC STLMLC [id number] [facility] 2023-07-25 00:00:00 2023-07-25 00:00:00 (IN/ASP) INJ ASP STLMLC STLMLC [id number] [facility] 2023-07-22 00:00:00 2023-07-22 00:00:00 (TEL) STLMLC STLMLC [id number] [facility] 2023-07-18 00:00:00 2023-07-18 00:00:00 (F/U) Follow Up Visit STLMLC STLMLC [id number] [facility] 2023-07-12 00:00:00 2023-07-12 00:00:00 (NV) Nurse Visit STLMLC STLMLC [id number] [facility] 2023-07-05 16:00:00 2023-07-05 16:00:00 Ambulatory [facility] [place] [id number]10 15:45:00 2023-06-11 04:59:59 Outpatient [facility] [place] [id number] 2023-06-07 00:00:00 2023-06-07 00:00:00 (NV) Nurse Visit STLMLC STLMLC [id number] [facility] 2023-05-25 00:00:00 2023-05-25 00:00:00 (F/U) Follow Up Visit STLMLC STLMLC [id number] [facility] 2023-05-24 00:00:00 2023-05-24 00:00:00 (HOSP F/U) Hospital Follow Up STLMLC STLMLC [id number] [facility] 2023-05-20 00:00:00 2023-05-20 00:00:00 (TEL) STLMLC STLMLC [id number] [facility] 2023-05-16 00:00:00 2023-05-16 00:00:00 (TEL) STLMLC STLMLC [id number] [facility] 2023-05-16 00:00:00 2023-05-16 00:00:00 OFFICE VISIT ESTAB PT LEVEL 3 STLMLC STLMLC [id number] [facility] 2023-04-26 00:00:00 2023-04-26 00:00:00 (NV) Nurse Visit STLMLC STLMLC [id number] [facility] 2023-04-19 00:00:00 2023-04-19 00:00:00 (NV) Nurse Visit STLMLC STLMLC [id number] [facility] 2023-04-12 00:00:00 2023-04-12 00:00:00 (NV) Nurse Visit STLMLC STLMLC [id number] [facility] 2023-04-05 00:00:00 2023-04-05 00:00:00 (NV) Nurse Visit STLMLC STLMLC [id number] [facility] 2023-03-31 00:00:00 2023-03-31 00:00:00 OFFICE VISIT ESTAB PT LEVEL 2 STLMLC STLMLC [id number] [facility] 2023-03-29 00:00:00 2023-03-29 00:00:00 (NV) Nurse Visit STLMLC STLMLC [id number] [facility] 2023-03-24 00:00:00 2023-03-24 00:00:00 OFFICE VISIT ESTAB PT LEVEL 3 STLMLC STLMLC [id number] [facility] 2023-03-23 00:00:00 2023-03-23 00:00:00 (TEL) STLMLC STLMLC [id number] [facility] 2023-03-22 00:00:00 2023-03-22 00:00:00 (NV) Nurse Visit STLMLC STLMLC [id number] [facility] 2023-03-18 00:00:00 2023-03-18 00:00:00 (TEL) STLMLC STLMLC [id number] [facility] 2023-03-15 00:00:2023-03-15 00:00:00 OFFICE VISIT ESTAB PT LEVEL 4 STLMLC STLMLC [id number] [facility] 2023-03-15 00:00:00 2023-03-15 00:00:00 (NV) Nurse Visit STLMLC STLMLC [id number] [facility] 2023-03-10 00:00:00 2023-03-10 00:00:00 (NV) Nurse Visit STLMLC STLMLC [id number] [facility] 2023-03-01 00:00:00 2023-03-01 00:00:00 (NV) Nurse Visit STLMLC STLMLC [id number] [facility] 2023-02-23 00:00:00 2023-02-23 00:00:00 (NV) Nurse Visit STLMLC STLMLC [id number] [facility] 2023-02-15 00:00:00 2023-02-15 00:00:00 (NV) Nurse Visit STLMLC STLMLC [id number] [facility] 2023-02-10 00:00:00 2023-02-10 00:00:00 (TEL) STLMLC STLMLC [id number] [facility] 2023-02-08 00:00:00 2023-02-08 00:00:00 (NV) Nurse Visit STLMLC STLMLC [id number] [facility] 2023-02-04 15:00:00 2023-02-05 04:59:59 Outpatient [facility] [place] [id number] Remberto Kline 2023-02-01 00:00:00 2023-02-01 00:00:00 (NV) Nurse Visit STLMLC STLMLC [id number] [facility] 2022-12-23 00:00:00 2022-12-23 00:00:00 OFFICE VISIT ESTAB PT LEVEL 3 STLMLC STLMLC [id number] [facility] 2022-12-20 00:00:00 2022-12-20 00:00:00 (IN/ASP) INJ ASP STLMLC STLMLC [id number] [facility] 2022-12-09 16:45:00 2022-12-10 04:59:59 Outpatient [facility] [place] [id number] Rembetro Kline 2022-12-10 00:00:00 2022-12-10 00:00:00 (IN/ASP) INJ ASP STLMLC STLMLC [id number] [facility] 2022-12-02 00:00:00 2022-12-02 00:00:00 (IN/ASP) INJ ASP STLMLC STLMLC [id number] [facility] 2022-11-29 00:00:00 2022-11-29 00:00:00 (TEL) STLMLC STLMLC [id number] [facility] 2022-11-09 00:00:00 2022-11-09 00:00:00 (TEL) STLMLC STLMLC [id number] [facility] 2022-11-04 00:00:00 2022-11-04 00:00:00 OFFICE VISIT ESTAB PT LEVEL 2 STLMLC STLMLC [id number] [facility] 2022-10-28 19:30:00 2022-10-29 05:59:59 Outpatient [facility] [place] [id number] Remberto Kline 2022-10-06 00:00:00 2022-10-06 00:00:00 OFFICE VISIT ESTAB PT LEVEL 3 STLMLC STLMLC [id number] [facility] 2022-10-04 00:00:00 2022-10-04 00:00:00 (TEL) STLMLC STLMLC [id number] [facility] 2022-10-04 00:00:00 2022-10-04 00:00:00 (TEL) STLMLC STLMLC [id number] [facility] 2022-09-15 00:00:00 2022-09-15 00:00:00 OFFICE VISIT ESTAB PT LEVEL 4 STLMLC STLMLC [id number] [facility] 2022-09-15 00:00:00 2022-09-15 00:00:00 SUB ANNUAL MCR WELLNESS VISIT STLMLC STLMLC [id number] [facility] 2022-09-15 00:00:00 2022-09-15 00:00:00 (TEL) STLMLC STLMLC [id number] [facility] 2022-09-02 00:00:00 2022-09-02 00:00:00 (TEL) STLMLC STLMLC [id number] [facility] 2022-08-10 00:00:00 2022-08-10 00:00:00 (TEL) STLMLC STLMLC [id number] [facility] 2022-08-09 00:00:00 2022-08-09 00:00:00 NON-BILLAB LE VISIT STLMLC STLMLC [id number] [facility] 2022-07-14 00:00:00 2022-07-14 00:00:00 (TEL) STLMLC STLMLC [id number] [facility] 2022-07-14 00:00:00 2022-07-14 00:00:00 NON-BILLAB LE VISIT STLMLC STLMLC [id number] [facility] 2022-07-14 00:00:00 2022-07-14 00:00:00 (TEL) STLMLC STLMLC [id number] [facility] 2022-07-12 00:00:00 2022-07-12 00:00:00 (TEL) STLMLC STLMLC [id number] [facility] 2022-07-12 00:00:00 2022-07-12 00:00:00 NON-BILLAB LE VISIT STLMLC STLMLC [id number] [facility] 2022-07-02 00:00:00 2022-07-02 00:00:00 NON-BILLAB LE VISIT STLMLC STLMLC [id number] [facility] 2022-06-17 00:00:00 2022-06-17 00:00:00 (TEL) STLMLC STLMLC [id number] [facility] 2022-06-14 00:00:00 2022-06-14 00:00:00 OFFICE VISIT EST PT LEVEL 3 STLMLC STLMLC [id number] [facility] 2022-06-10 00:00:00 2022-06-10 00:00:00 OFFICE VISIT EST PT LEVEL 3 STLMLC STLMLC [id number] [facility] 2022-05-20 00:00:00 2022-05-20 00:00:00 (TEL) STLMLC STLMLC [id number] [facility] 2022-05-18 00:00:00 2022-05-18 00:00:00 (TEL) STLMLC STLMLC [id number] [facility] 2022-05-17 00:00:00 2022-05-17 00:00:00 OFFICE VISIT EST PT LEVEL 3 STLMLC STLMLC [id number] [facility] 2022-05-11 00:00:00 2022-05-11 00:00:00 (TEL) STLMLC STLMLC [id number] [facility] 2022 00:00:00 2022 00:00:00 (PROC) Procedure STLMLC STLMLC [id number] [facility] 2022-04-28 00:00:00 2022-04-28 00:00:00 OFFICE VISIT EST PT LEVEL 3 STLMLC STLMLC [id number] [facility] 2022-04-22 00:00:00 2022-04-22 00:00:00 (TEL) STLMLC STLMLC [id number] [facility] 2022-04-07 00:00:00 2022-04-07 00:00:00 OFFICE VISIT EST PT LEVEL 3 STLMLC STLMLC [id number] [facility] 2022-04-05 00:00:2022-04-05 00:00:00 (TEL) STLMLC STLMLC [id number] [facility] 2022-04-05 00:00:00 2022-04-05 00:00:00 OFFICE VISIT EST PT LEVEL 3 STLMLC STLMLC [id number] [facility] 2022-04-05 00:00:00 2022-04-05 00:00:00 (TEL) STLMLC STLMLC [id number] [facility] 2022-03-17 00:00:00 2022-03-17 00:00:00 OFFICE VISIT ESTAB PT LEVEL 2 STLMLC STLMLC [id number] [facility] 2022-03-10 00:00:00 2022-03-10 00:00:00 OFFICE VISIT ESTAB PT LEVEL 4 STLMLC STLMLC [id number] [facility] 2022-02-24 00:00:00 2022-02-24 00:00:00 (TEL) STLMLC STLMLC [id number] [facility] 2022-02-24 00:00:00 2022-02-24 00:00:00 (IN/ASP) INJ ASP STLMLC STLMLC [id number] [facility] 2022-02-15 00:00:00 2022-02-15 00:00:00 (IN/ASP) INJ ASP STLMLC STLMLC [id number] [facility] 2022-02-08 00:00:00 2022-02-08 00:00:00 OFFICE VISIT EST PT LEVEL 3 [facility]LMLC STLMLC [id number] [facility] 2022-01-12 00:00:00 2022-01-12 00:00:00 (TEL) STLMLC STLMLC [id number] [facility] 2022-01-12 00:00:00 2022-01-12 00:00:00 (TEL) STLMLC STLMLC [id number] [facility] 2021-12-23 00:00:00 2021-12-23 00:00:00 (TEL) STLMLC STLMLC [id number] [facility] 2021-12-22 00:00:00 2021-12-22 00:00:00 OFFICE VISIT EST PT LEVEL 3 [facility]LMLC STLMLC [id number] [facility] 2021-12-07 00:00:00 2021-12-07 00:00:00 (IN/ASP) INJ ASP STLMLC STLMLC [id number] [facility] 2021-11-19 00:00:00 2021-11-19 00:00:00 OFFICE VISIT EST PT LEVEL 3 STLMLC STLMLC [id number] [facility] 2021-11-17 00:00:00 2021-11-17 00:00:00 (TEL) STLMLC STLMLC [id number] [facility] 2021-11-13 00:00:00 2021-11-13 00:00:00 OFFICE VISIT EST PT LEVEL 3 STLMLC STLMLC [id number] [facility] 2021-09-21 00:00:00 2021-09-21 00:00:00 (TEL) STLMLC STLMLC [id number] [facility] 2021-09-15 00:00:00 2021-09-15 00:00:00 (TEL) STLMLC STLMLC [id number] [facility] 2021-09-15 00:00:00 2021-09-15 00:00:00 (INJ) Injection STLMLC STLMLC [id number] [facility] 2021-09-10 00:00:00 2021-09-10 00:00:00 OFFICE VISIT ESTAB PT LEVEL 4 STLMLC STLMLC [id number] [facility] 2021-09-10 00:00:00 2021-09-10 00:00:00 (TEL) STLMLC STLMLC [id number] [facility] 2021-09-10 00:00:00 2021-09-10 00:00:00 SUB ANNUAL [facility] VISIT STLMLC STLMLC [id number] [facility] 2021-09-04 00:00:00 2021-09-04 00:00:00 OFFICE VISIT ESTAB PT LEVEL 2 STLMLC STLMLC [id number] [facility] 2021-09-04 00:00:00 2021-09-04 00:00:00 (TEL) STLMLC STLMLC [id number] [facility] 2021-08-24 00:00:00 2021-08-24 00:00:00 (PROC) Procedure STLMLC STLMLC [id number] [facility] 2021-06-26 00:00:00 2021-06-26 00:00:00 OFFICE VISIT EST PT LEVEL 3 STLMLC STLMLC [id number] [facility] 2021-06-24 00:00:00 2021-06-24 00:00:00 (TEL) STLMLC STLMLC [id number] [facility] 2021-05-11 00:00:00 2021-05-11 00:00:00 Outpatient STLMLC STLMLC [id number] [facility] 2021-05-04 00:00:00 2021-05-04 00:00:00 Outpatient STLMLC STLMLC [id number] [facility] 2020-11-17 00:00:00 2020-11-17 00:00:00 Outpatient STLMLC STLMLC [id number] [facility] Results Test Description Test Time Test Comments Results Result Co mments Source LIPID PANEL WITH REFLEX DIRECT [id number] 00:00:00* Test Item Value Reference Range Interpretation Comme nts CALC LDL CHOL (test code = 06088-5) 135 MG/DL See_Comment H [Automated NOZAa [employer]] The system which generated this result transmitted reference range: <100 MG/DL. The reference range was not used to interpret this result as normal/abnormal. CHOLESTEROL (test code = 2093-3) 217 MG/DL See_Comment H [Automated NOZAa ge] The system which generated this result transmitted reference range: <200 MG/DL. The reference range was not used to interpret this result as normal/abnormal. HDL CHOLESTEROL (test code = 2085-9) 63 MG/DL See_Comment [Automated Pumant] The system which generated this result transmitted reference range: >39 MG/DL. The reference range was not used to interpret this result as normal/abnormal. RISK RATIO LDL/HDL (test code = 72011-0) 2.14 RATIO See_Comment [Automated message] The system which generated this result transmitted reference range: <3.55 RATIO. The reference range was not used to interpret this result as normal/abnormal. TRIGLYCERIDES (test code = 2571-8) 91 MG/DL See_Comment [Automated Pumant] The system which generated this result transmitted reference range: <150 MG/DL. The reference range was not used to interpret this result as normal/abnormal. STREP A [id number] 00:00:00ResultVITAMIN D, 25 [id number] 00:00:00* Test Item Value Reference Range Interpretation Comme nts VITAMIN D, 25 OH (test code = 1989-3) 50 NG/ML SEE BELOW NG/ML Chest Single ViewChest Single ViewPOC, COVID 19 Antigen + Flu by SofiaPOC, COVID 19 Antigen + Flu by SofiaPOC, COVID 19 Antigen + Flu by SofiaPOC, COVID 19 Antigen + Flu by SofiaTib Fib RightTib Fib Right
[2024-11-25] MEDS ORDERED: NA CHLORIDE 0.9% 1,000 ML ONE (23:33)
[2024-11-25 23:45] LABS: Absolute Eosinophils 0.1 K/uL (0-0.5); Absolute Lymphocytes (CBC) 1.6 K/uL (0.7-4.9); Absolute Monocytes 0.6 K/uL (0.1-1.3); Absolute Neutrophil 3.3 K/uL (1.8-8.0); Basophils % 0.7 % (0-1.3); Eosinophils % 2.3 % (0-4.4); Hematocrit 35.8 % (39.6-49.0); Hemoglobin 12.2 g/dL (13.6-17.9); Lymphocytes % 28.3 % (15.3-44.8); MCH 30.4 pg (27.0-35.0); MCHC 34.1 g/dL (32.0-36.0); MCV 89.4 fL (80-100); Monocytes % 10.5 % (3.3-12.3); Neutrophils % 58.2 % (41.7-73.7); Nucleated Red Blood Cells % 0.1 % (0-0); Platelets 192 thou/uL (152-406); Protime INR 1.06; Red Cell Distribution Width 14.4 % (12.1-15.2)
[2024-11-25 23:58] LABS: ALT/SGPT 19 U/L (16-61); AST/SGOT 23 U/L (15-37); Albumin 3.3 g/dL (3.4-5.0); Alkaline Phosphatase 80 U/L (45-117); BUN Blood Urea Nitrogen 27 mg/dL (7-18); Bicarbonate 28 mEq/L (21-32); Bilirubin Direct < 0.2 mg/dL (0-0.2); Bilirubin Indirect, Calculated 0.2 mg/dL (0.2-0.8); Bilirubin Total 0.4 mg/dL (0.2-1.0); Globulin 3.3 g/dL (2.3-3.5); Glomerular Filtration Rate 54 ml/min (=/>90); Glucose Level 122 mg/dL (74-106); Lipase 47 U/L (13-75); Magnesium 2.6 mg/dL (1.6-2.4); NT PRO-BNP 834 pg/mL (<450); Protein, Total 6.6 g/dL (6.4-8.2); Sodium Level 138 mEq/L (136-145); Troponin High Sensitivity 11.9 pg/mL (<58.9)
--- NOTE | 2024-11-26 00:31 | RAD REPORT ---
EXAM: XR Chest, 1 View CLINICAL HISTORY: The patient is 89 years old and is Male; COUGH TECHNIQUE: Frontal view of the chest. COMPARISON: XR Chest dated May 10 2024 FINDINGS: LUNGS: Chronic coarse interstitial markings are noted. There is no lobar consolidation. PLEURAL SPACE: Unremarkable. No pneumothorax. HEART: The cardiac silhouette is enlarged. MEDIASTINUM: Unremarkable. Normal mediastinal contour. BONES/JOINTS: Multilevel degenerative change of the spine is present. No acute fracture. VASCULATURE: Atherosclerosis of the aorta is present. UPPER ABDOMEN: Unremarkable as visualized. IMPRESSION: No acute cardiopulmonary process. Electronically signed by: Carey Shi MD 11/25/2024 11:49 PM CDT RP Due to temporary technical issues with the PACS/Boom.fm reporting system, reports are being avni d by the in-house radiologist without review as a courtesy to ensure prompt reporting the interpreting radiologist is fully responsible for the content of the report. Transcribed Date/Time: 11/26/2024 12:31 AM
[2024-11-26 01:42] LABS: Specific Gravity 1.014 (1.005-1.030); Urine Bilirubin NEGATIVE (Negative); Urine Blood Negative (Negative); Urine Clarity Clear (Clear); Urine Color Colorless (Yellow); Urine Glucose NEGATIVE (Negative); Urine Ketones NEGATIVE (Negative); Urine Microscopic Reflex YN NO UMIC; Urine Nitrite NEGATIVE (Negative); Urine Protein NEGATIVE (Negative); Urine Urobilinogen Normal (Normal)
--- NOTE | 2024-11-26 01:52 | EDPHYS ---
Physician Documentation [facility] Name: Angelo Gonzalez Age: 89 yrs Sex: Male : 1935 Arrival Date: 11/25/2024 Time: 22:34 Bed 18 Private MD: LATIA Physician Julio Cesar Sullivan HPI: 11/26 01:44 This 89 yrs old Male presents to ER via Wheelchair with complaints of High wyatt Blood Pressure, Shortness Of Breath, Arm Pain. 01:44 The patient has elevated blood pressure and discovered this at home, with a home wyatt device. Modifying factors: The symptoms are aggravated by activity, The symptoms are alleviated by remaining still, prescription meds. Associated signs and symptoms: Pertinent positives: dyspnea, lightheadedness, weakness. Severity of symptoms: At its worst the blood pressure was mild, in the emergency department the blood pressure is unchanged. The patient has experienced similar episodes in the past, multiple times. Historical: - Allergies: 11/25 22:54 No Known Allergies; br2 - PMHx: 22:54 aortic aneurysm; Arthritis; BPH; Hypertension; Hypothyroidism; br2 - Immunization history:: Adult Immunizations up to date. - Infectious Disease History:: Denies. - Social history:: Smoking status: Patient denies any tobacco usage or history of. Patient uses alcohol, but reports only rare drinking. Patient/guardian denies using street drugs. ROS: 11/26 01:45 Constitutional: Negative for fever, chills, and weight loss, Eyes: Negative for injury, wyatt pain, redness, and discharge, ENT: Negative for injury, pain, and discharge, Neck: Negative for injury, pain, and swelling, Respiratory: Negative for shortness of breath, cough, wheezing, and pleuritic chest pain, Abdomen/GI: Negative for abdominal pain, nausea, vomiting, diarrhea, and constipation, Back: Negative for injury and pain, : Negative for injury, bleeding, discharge, and swelling, MS/Extremity: Negative for injury and deformity, Skin: Negative for injury, rash, and discoloration, Neuro: Negative for headache, weakness, numbness, tingling, and seizure, Psych: Negative for depression, anxiety, suicide ideation, homicidal ideation, and hallucinations, Allergy/Immunology: Negative for hives, rash, and allergies, Endocrine: Negative for neck swelling, polydipsia, polyuria, polyphagia, and marked weight changes, Cardiovascular: Positive for palpitations, Respiratory: Positive for cough, shortness of breath, wheezing, expiratory, Exam: 01:45 Constitutional: This is a well developed, well nourished patient who is awake, alert, wyatt and in no acute distress. Head/Face: Normocephalic, atraumatic. Eyes: Pupils equal round and reactive to light, extra-ocular motions intact. Lids and lashes normal. Conjunctiva and sclera are non-icteric and not injected. Cornea within normal limits. Periorbital areas with no swelling, redness, or edema. ENT: Nares patent. No nasal discharge, no septal abnormalities noted. Tympanic membranes are normal and external auditory canals are clear. Oropharynx with no redness, swelling, or masses, exudates, or evidence of obstruction, uvula midline. Mucous membranes moist. Neck: Trachea midline, no thyromegaly or masses palpated, and no cervical lymphadenopathy. Supple, full range of motion without nuchal rigidity, or vertebral point tenderness. No Meningismus. Chest/axilla: Normal chest wall appearance and motion. Nontender with no deformity. No lesions are appreciated. Cardiovascular: Regular rate and rhythm with a normal S1 and S2. No gallops, murmurs, or rubs. Normal PMI, no JVD. No pulse deficits. Abdomen/GI: Soft, non-tender, with normal bowel sounds. No distension or tympany. No guarding or rebound. No evidence of tenderness throughout. Back: No spinal tenderness. No costovertebral tenderness. Full range of motion. Male : Normal genitalia with no discharge or lesions. Skin: Warm, dry with normal turgor. Normal color with no rashes, no lesions, and no evidence of cellulitis. MS/ Extremity: Pulses equal, no cyanosis. Neurovascular intact. Full, normal range of motion., bilateral aka Neuro: Awake and alert, GCS 15, oriented to person, place, time, and situation. Cranial nerves II-XII grossly intact. Motor strength 5/5 in all extremities. Sensory grossly intact. Cerebellar exam normal. Normal gait. Psych: Awake, alert, with orientation to person, place and time. Behavior, mood, and affect are within normal limits. 01:45 Respiratory: moderate respiratory distress is noted, Respirations: labored breathing, that is mild, Breath sounds: bronchial sounds, that are mild, decreased breath sounds, that are mild, rhonchi, that are mild, stridor, is not appreciated, wheezing: expiratory Respiratory rate: 18 01:45 Musculoskeletal/extremity: Extremities: all appear grossly normal, with no appreciated pain with palpation, ROM: no acute changes, Circulation is intact in all extremities. Sensation intact. Compartment Syndrome exam of affected extremity: is normal. DVT Exam: No signs of deep vein thrombosis. no pain, no swelling, no tenderness, negative Homans' sign noted on exam, no appreciated bluish discoloration, no erythema, no increased warmth, Vital Signs: 11/25 22:51 BP 173 / 74; Pulse 75; Resp 18 S; Temp 97.2(TE); Pulse Ox 99% on R/A; Weight 72.57 kg; br2 Height 5 ft. 6 in. ; Pain 4/10; 23:15 BP 159 / 68; Pulse 75; Resp 18; Pulse Ox 100% on R/A; 13 11/26 00:20 BP 155 / 71; Pulse 64; Resp 18; Pulse Ox 99% ; jr13 02:45 BP 143 / 61; Pulse 76; Resp 18; Pulse Ox 100% on R/A; jr13 11/25 22:51 Body Mass Index 25.82 (72.57 kg, 167.64 cm) br2 11/25 22:51 Pain Scale: Adult br2 Annia Coma Score: 01:45 Eye Response: spontaneous(4). Motor Response: obeys commands(6). Verbal Response: wyatt oriented(5). Total: 15. MDM: 11/25 23:02 Medical Screening Exam initiated wyatt 11/26 01:48 Antibiotic administration: Not indicated. Differential diagnosis: Anemia asthma, wyatt Bronchitis CHF exacerbation, Chronic Obstructive Pulmonary Disease hypertensive crisis, Malignant HTN, Myocardial Infarction pneumonia, pulmonary edema, Pulmonary Embolism reactive airway disease, Sepsis Unstable Angina. Immunization status: Pneumococcal vaccine: within last 5 years. Influenza vaccine: within last 5 years. Data reviewed: vital signs, nurses notes, lab test result(s), EKG, radiologic studies, plain films. Consideration of Admission/Observation Patient was admitted/placed on observation. Escalation of care including admission/observation considered. I considered the following discharge prescriptions or medication management in the emergency department Medications were administered in the Emergency Department. See MAR. Test considered but Not performed: Ultrasound no 2 d echo. Care significantly affected by the following chronic conditions: Hypertension, Obesity, bph, aortic aneyrysm, oa. 11/25 23:07 Order name: Basic Metabolic Panel; Complete Time: 01:34 wyatt 11/25 23:07 Order name: CBC with Diff; Complete Time: 01:34 wyatt 11/25 23:07 Order name: LFT's; Complete Time: 01:34 [facility] 11/25 23:07 Order name: Magnesium; Complete Time: 01:34 [facility] 11/25 23:07 Order name: NT PRO-BNP; Complete Time: 01:34 wyatt 11/25 23:07 Order name: PT-INR; Complete Time: 01:34 wyatt 11/25 23:07 Order name: Troponin HS; Complete Time: 01:34 [facility] 11/25 23:07 Order name: Lipase; Complete Time: 01:34 [facility] 11/25 23:07 Order name: Urinalysis w/ reflexes; Complete Time: 02:23 [facility] 11/26 02:51 Order name: Urinalysis w/ reflexes EDNM 11/26 02:51 Order name: CBC with Automated Diff EDMS 11/26 02:51 Order name: CBC with Automated Diff EDMS 11/26 02:51 Order name: Comprehensive Metabolic Panel EDNM 11/26 02:51 Order name: Comprehensive Metabolic Panel [facility] 11/25 23:07 Order name: XRAY Chest (1 view) [facility] 11/25 23:07 Order name: CT Aorta for Dissection [facility] 11/25 23:07 Order name: EKG; Complete Time: 23:08 [facility] 11/26 02:51 Order name: CONS Physician Consult [facility] 11/25 23:07 Order name: Cardiac monitoring; Complete Time: 23:22 [facility] 11/25 23:07 Order name: EKG - Nurse/Tech; Complete Time: 23:30 [facility] 11/25 23:07 Order name: IV Saline Lock; Complete Time: 23:23 [facility] 11/25 23:07 Order name: Labs collected and sent; Complete Time: 23:23 wyatt 11/25 23:07 Order name: O2 Per Protocol; Complete Time: 23:23 [facility] 11/25 23:07 Order name: O2 Sat Monitoring; Complete Time: 23:23 wyatt Administered Medications: 11/25 23:33 Drug: NS 0.9% IV 500 ml IV at bolus once; to be given as a bolus over 30 minutes Route: jr13 IV; Rate: bolus; Site: right antecubital; 11/26 00:07 Follow up: IV Status: Completed infusion 13 00:07 Drug: NS 0.9% IV 500 ml 500 ml IV at 100 ml/hr once Volume: 500 ml; Route: IV; Rate: jr13 100 ml/hr; Site: right antecubital; 02:04 Drug: MethylPrednisoLONE IVP 125 mg IVP once Route: IVP; Site: right antecubital; jr13 02:49 Follow up: Response: No adverse reaction jr13 02:04 Drug: Levalbuterol Inhalation 2.5 mg Inhalation once Route: Inhalation; jr13 02:49 Follow up: Response: Other; Patient able to breathe better jr13 02:04 Drug: Ipratropium Inhalation Aerosol 0.5 mg Inhalation once Route: Inhalation; jr13 02:48 Follow up: Response: Other; Patient able to breathe better jr13 Disposition Summary: 11/26/24 01:51 Hospitalization Ordered Notes: Hospitalization Status: Observation wyatt Provider: Paul Schwartz cha Location: Telemetry/MedSurg (observation) wyatt Condition: Fair wyatt Problem: new wyatt Symptoms: have improved wyatt Bed/Room Type: Standard wyatt Room Assignment: 215(11/26/24 02:54) sp Diagnosis - COPD/ Chronic obstructive pulmonary disease with (acute) exacerbation wyatt - Dyspnea wyatt - Essential (primary) hypertension wyatt Forms: - Medication Reconciliation Form wyatt - SBAR form wyatt - Leadership Thank You Letter wyatt Signatures: Dispatcher [employer] Julio Cesar Bobby MD MD cha Pinkerton, Shawna sp Riddle, Belinda, RN RN br2 Juancarlos Garcia RN RN jr13 Corrections: (The following items were deleted from the chart) 02:54 01:51 wyatt sp
--- NOTE | 2024-11-26 01:52 | ER ---
Nurse's Notes [facility] Name: Angelo Gonzalez Age: 89 yrs Sex: Male : 1935 Arrival Date: 11/25/2024 Time: 22:34 Bed 18 Private MD: Diagnosis: COPD/ Chronic obstructive pulmonary disease with (acute) exacerbation;Dyspnea;Essential (primary) hypertension Presentation: 11/25 22:51 Chief complaint: Patient states: LEFT SHOULDER PAIN WITH MOVEMENT, AND SOB THAT BEGAN br2 THIS EVENING. DENIES INJURY. PT CONCERNED WITH HTN READING WHEN HE CHECKED IT. Coronavirus screen: Client denies travel out of the [place] in the last 14 days. Ebola Screen: Patient denies exposure to infectious person. Initial Sepsis Screen: Does the patient meet any 2 criteria? No. Patient's initial sepsis screen is negative. Does the patient have a suspected source of infection?. Risk Assessment: Do you want to hurt yourself or someone else? Patient reports no desire to harm self or others. Onset of symptoms was November 25, 2024 at 19:00. 22:51 Method Of Arrival: Wheelchair br2 22:51 Acuity: ARMIDA 3 br2 Triage Assessment: 22:54 General: Appears in no apparent distress. comfortable, Behavior is calm, cooperative. br2 Pain: Complains of pain in left arm Pain currently is 4 out of 10 on a pain scale. Respiratory: Reports shortness of breath Onset: The symptoms/episode began/occurred today, the patient has mild shortness of breath. Historical: - Allergies: 22:54 No Known Allergies; br2 - PMHx: 22:54 aortic aneurysm; Arthritis; BPH; Hypertension; Hypothyroidism; br2 - Immunization history:: Adult Immunizations up to date. - Infectious Disease History:: Denies. - Social history:: Smoking status: Patient denies any tobacco usage or history of. Patient uses alcohol, but reports only rare drinking. Patient/guardian denies using street drugs. Screenin:58 [facility] ED Fall Risk Assessment (Adult) History of falling in the last 3 months, jr13 including since admission No falls in past 3 months (0 pts) Confusion or Disorientation No (0 pts) Intoxicated or Sedated No (0 pts) Impaired Gait Yes (1 pt) Mobility Assist Device Used Yes (1 pt) Altered Elimination No (0 pt) Score/Fall Risk Level 3 or more points = High Risk Oriented to surroundings, Maintained a safe environment, Educated pt \T\ family on fall prevention, incl call for assistance when getting out of bed. Abuse screen: Denies threats or abuse. Denies injuries from another. Nutritional screening: No deficits noted. Tuberculosis screening: No symptoms or risk factors identified. Assessment: 22:51 General: Appears uncomfortable, Behavior is calm, cooperative, appropriate for age. jr13 Pain: Complains of pain in Left scapula pain Pain does not radiate. Pain currently is 4 out of 10 on a pain scale. Neuro: No deficits noted. Level of Consciousness is awake, alert, obeys commands, Oriented to person, place, time, situation, Appropriate for age. Cardiovascular: No deficits noted. Capillary refill < 3 seconds Rhythm is regular. Respiratory: No deficits noted. Airway is patent Respiratory effort is even, unlabored, Breath sounds are clear bilaterally. GI: No deficits noted. Abdomen is round. : No deficits noted. EENT: No deficits noted. Musculoskeletal: Circulation, motion, and sensation intact. Vital Signs: 22:51 BP 173 / 74; Pulse 75; Resp 18 S; Temp 97.2(TE); Pulse Ox 99% on R/A; Weight 72.57 kg; br2 Height 5 ft. 6 in. ; Pain 4/10; 23:15 BP 159 / 68; Pulse 75; Resp 18; Pulse Ox 100% on R/A; jr13 11/26 00:20 BP 155 / 71; Pulse 64; Resp 18; Pulse Ox 99% ; jr13 02:45 BP 143 / 61; Pulse 76; Resp 18; Pulse Ox 100% on R/A; jr13 11/25 22:51 Body Mass Index 25.82 (72.57 kg, 167.64 cm) br2 11/25 22:51 Pain Scale: Adult br2 Annia Coma Score: 01:45 Eye Response: spontaneous(4). Motor Response: obeys commands(6). Verbal Response: wyatt oriented(5). Total: 15. ED Course: 11/25 22:35 Patient arrived in ED. jj6 22:49 Juancarlos Garcia, RN is Primary Nurse. jr13 22:54 Triage completed. br2 22:54 Arm band placed on right wrist. br2 22:58 Patient has correct armband on for positive identification. Placed in gown. Bed in low jr13 position. Call light in reach. Side rails up X2. Provided Education on: Plan of care. 23:02 Julio Cesar Sullivan MD is Attending Physician. [facility] 23:16 Inserted saline lock: 22 gauge in right antecubital area, using aseptic technique. jr13 Blood collected. Flushed with 10 mL NS. 23:18 X-ray completed. Portable x-ray completed in exam room. Patient tolerated procedure mh1 well. 23:21 XRAY Chest (1 view) In Process Unspecified. EDMS 23:22 Lipase Sent. jr13 23:23 Basic Metabolic Panel Sent. jr13 23:23 CBC with Diff Sent. jr13 23:23 LFT's Sent. jr13 23:23 Magnesium Sent. jr13 23:23 NT PRO-BNP Sent. jr13 23:23 PT-INR Sent. jr13 23:23 Troponin HS Sent. jr13 11/26 01:34 CT Aorta for Dissection In Process Unspecified. EDMS 01:50 Paul Schwartz MD is Hospitalizing Provider. [facility] 03:59 No provider procedures requiring assistance completed. Patient admitted, IV remains in jr13 place. Administered Medications: 11/25 23:33 Drug: NS 0.9% IV 500 ml IV at bolus once; to be given as a bolus over 30 minutes Route: jr13 IV; Rate: bolus; Site: right antecubital; 11/26 00:07 Follow up: IV Status: Completed infusion jr13 00:07 Drug: NS 0.9% IV 500 ml 500 ml IV at 100 ml/hr once Volume: 500 ml; Route: IV; Rate: jr13 100 ml/hr; Site: right antecubital; 02:04 Drug: MethylPrednisoLONE IVP 125 mg IVP once Route: IVP; Site: right antecubital; jr13 02:49 Follow up: Response: No adverse reaction jr13 02:04 Drug: Levalbuterol Inhalation 2.5 mg Inhalation once Route: Inhalation; jr13 02:49 Follow up: Response: Other; Patient able to breathe better jr13 02:04 Drug: Ipratropium Inhalation Aerosol 0.5 mg Inhalation once Route: Inhalation; jr13 02:48 Follow up: Response: Other; Patient able to breathe better rust Medication: 11/25 22:59 VIS not applicable for this client. jr13 Outcome: 11/26 01:51 Decision to Hospitalize by Provider. wyatt 03:59 Admitted to Tele accompanied by tech, via wheelchair, jr13 03:59 Condition: stable 03:59 Instructed on the need for admit, 04:01 Patient left the ED. jr13 Signatures: Dispatcher [employer] EDJulio Cesar Fernandez MD MD cha Harvey, Martha mh1 Ellie [email or web address] Melyssa Abarca RN RN br2 Juancarlos Garcia, RN RN jr13
[2024-11-26] MEDS ORDERED: METHYLPREDNISOLONE 125 MG INJ ONE (01:55)
[2024-11-26] MEDS ORDERED: LEVALBUTEROL 1.25 MG/3 ML NEB ONE (01:56)
[2024-11-26] MEDS ORDERED: IPRATROPIUM BROM 0.5MG/2.5ML ONE (01:56)
[2024-11-26] MEDS ORDERED: ACETAMINOPHEN 325 MG TABLET PO PRN (02:45)
[2024-11-26] MEDS ORDERED: ONDANSETRON 4 MG/2 ML VIAL IV PRN (02:45)
--- NOTE | 2024-11-26 02:45 | P.HP ---
Certification for Inpatient Patient admitted to: Inpatient With expected LOS: >2 Midnights Practitioner: I am a practitioner with admitting privileges, knowledge of patient current condition, hospital course, and medical plan of care. Services: Services provided to patient in accordance with Admission requirements found in Title 42 Section 412.3 of the Code of Federal Regulations Patient History Date of Service: 11/26/24 Reason for admission: COPD exacerbation History of Present Illness: 89 yrs old Male with past medical history of hypertension, hypothyroidism, BPH, osteoarthritis, aortic aneurysm who was brought to ER with elevated blood pressure and shortness of breath. Patient started having shortness of breath yesterday, worse with any movements. Denies any chest pain. Also complains of generalized weakness. Patient noted to have high blood pressure. Patient has similar episodes previously. No fever or chills. No sick contacts. Patient was assessed in the ER and was found to have a possible COPD exacerbation and was admitted for further management Allergies No Known Allergies Allergy (Verified 11/08/23 09:04) Home medications list reviewed: Yes Home Medications: Tamsulosin [Flomax*] 0.4 mg PO BEDTIME 06/14/22 Thyroid,Pork [[place] Thyroid] 15 mg PO SEECOM 06/14/22 Thyroid,Pork [[place] Thyroid] 60 mg PO [id number] 06/14/22 Fluticasone/Vilanterol [Breo Ellipta 200-25 Mcg Inhalr] 1 puff IH BEDTIME 05/19/23 Aspirin [Aspirin EC 81 MG] 81 mg PO NOON 11/08/23 Metoprolol Succinate [Toprol Xl*] 25 mg PO DAILY 11/08/23 Saw/Vit E/Sod Ruby/Lyc/Beta/Pyg [Prostate Health Caplet] 1 each PO NOON 11/08/23 Bosmed 500 1 cap PO DAILY 11/26/24 Curamed Curcumin 1 cap PO NOON 11/26/24 L. Acidophilus/L.bulgaricus [Lactobacillus Tablet] 1 each PO DAILY 11/26/24 Multivitamin 1 each PO DAILY 11/26/24 Sertraline HCl 50 mg PO BEDTIME 11/26/24 - Past Medical/Surgical History Diabetic: No Past Medical History: Reviewed- Non-Contributory -: aortic aneurysm -: tinnitus -: HTN -: BPH -: hypothyroidsm -: bladder CA -: arthritis Past Surgical History: Reviewed- Non-Contributory -: tonsillectomy/adenoidectomy -: hernia repair -: sabra cataract sx -: tonisllectomy Psychosocial/ Personal History: Lives at home with family - Family History Father -: Heart disease, Hypertension Notes: thyroid problems Mother -: Heart disease, Hypertension Brother -: Heart disease, Hypertension Sister -: Heart disease, Hypertension - Social History Smoking Status: Never smoker Alcohol use: No CD- Drugs: No Caffeine use: No Review of Systems 10-point ROS is otherwise unremarkable Physical Examination - Vital Signs Temperature: 97.2 F Blood Pressure: 172/76 Pulse: 72 Respirations: 18 Pulse Ox (%): 94 - Physical Exam General: Alert, Oriented x3, Mild distress HEENT: Atraumatic, Normocephalic Neck: Supple Respiratory: Clear to auscultation bilaterally, Crackles/rales, Expiratory wheezes Cardiovascular: Regular rate/rhythm, Normal S1 S2 Capillary refill: <2 Seconds Gastrointestinal: Soft and benign, W/out hepatosplenomegaly Musculoskeletal: No clubbing, No swelling Integumentary: No rashes Neurological: Normal speech, Normal strength at 5/5 x4 extr, Normal reflexes 2+ Lymphatics: No axilla or inguinal lymphadenopathy - Studies Laboratory Data (last 24 hrs) 11/25/24 11/25/24 11/25/24 23:20 23:20 23:20 WBC 5.60 Hgb 12.2 L Hct 35.8 L Plt Count 192 PT 12.0 INR 1.06 Sodium 138 Potassium 4.0 BUN 27 H Creatinine 1.28 Glucose 122 H Magnesium 2.6 H Total Bilirubin 0.4 AST 23 ALT 19 Alkaline Phosphatase 80 Lipase 47 Assessment and Plan - Plan COPD exacerbation Monitor closely on telemetry Started on bronchodilators Oxygen supplementation Steroids added Chest x-ray shows no acute changes Pulmonology consult if not better in the a.m. Hypertension Antihypertensives titrated Continue home medications and titrate as needed Hyperlipidemia Continue statin History of aortic aneurysm Will get a CT dissection Did not show any aneurysm or dissection Pain control Elevated BNP We will get an echocardiogram Monitor closely under telemetry Will add dose of Lasix Hypothyroidism Will get a TSH level GI/DVT prophylaxis Advanced directive full code Discharge Plan: Home Plan to discharge in: 48 Hours - Advance Directives Does patient have a Living Will: No Does patient have a Durable POA for Healthcare: No - Code Status/Comfort Care Code Status: Full Code Time Spent Managing Pts Care (In Minutes): 48
--- NOTE | 2024-11-26 04:10 | RAD REPORT ---
EXAM: CT Angiography Chest, Abdomen and Pelvis With Intravenous Contrast CLINICAL HISTORY: ABD PAIN TECHNIQUE: Axial computed tomographic angiography images of the chest, abdomen and pelvis with intravenous contr ast. Sagittal and coronal reformatted images were created and reviewed. This CT exam was performed using one or more of the following dose reduction techniques: automated exposure control, adjustment of the mA and/or kV according to patient size, and/or use of iterative reconstruction technique. MIP reconstructed images were created and reviewed. COMPARISON: CTA Chest dated 05/18/[address] Abdomen Pelvis dated 09/03/2023 FINDINGS: VASCULATURE: Aorta: Mild to moderate atherosclerotic disease. No aortic aneurysm. No dissection. Pulmonary arteries: Unremarkable as visualized. No pulmonary embolism is identified. Great vessels of aortic arch: No acute findings. No dissection. No arterial occlusion or signif icant stenosis. Celiac trunk and mesenteric arteries: No acute findings. No occlusion or significant stenosis. Renal arteries: No acute findings. No occlusion or significant stenosis. Iliac arteries: No acute findings. No occlusion or significant stenosis. CHEST: Lungs: Peripheral fibrotic changes similar to the prior. No discrete infiltrate. No mass. Pleural space: Unremarkable. No significant effusion. No pneumothorax. Heart: Coronary artery calcification. No cardiomegaly. No significant pericardial effusion. Mediastinum: Small hiatal hernia. Thyroid: Heterogeneous left thyroid nodule again demonstrated measuring 4.8 cm in visualized cranio caudal dimension. The superior extent is collimated off the [id number]. ABDOMEN: Liver: Numerous subcentimeter hepatic hypodensities which are too small to characterize. Gallbladder and bile ducts: Unremarkable. No calcified stones. No ductal dilation. Pancreas: Mild pancreatic parenchymal atrophy. No ductal dilation. Spleen: Unremarkable. No splenomegaly. Adrenals: Unremarkable. No mass. Kidneys and ureters: The kidneys are mildly atrophic. Normal renal cortical enhancement. No calculi . No hydronephrosis. Stomach and bowel: Colonic diverticula without adjacent inflammatory change. Moderate stool in th e proximal to mid large bowel. No obstruction. No mucosal thickening. PELVIS: Appendix: The appendix is not definitively visualized. No findings to suggest acute appendicitis. Bladder: Unremarkable. No mass. Reproductive: Unremarkable as visualized. CHEST, ABDOMEN and PELVIS: Intraperitoneal space: Unremarkable. No significant fluid collection. No free air. Bones/joints: Multilevel spondylosis. No acute fracture. Contiguous flowing ossification involv ing multiple consecutive vertebral bodies which can be seen in the setting of DISH. No dislocation. Soft tissues: Bilateral gynecomastia. Lymph nodes: Unremarkable. No enlarged lymph nodes. Tubes, lines and devices: Left gluteal pulse generator with a left presacral lead. IMPRESSION: 1. No evidence for thoracic or abdominal aortic aneurysm or dissection. 2. No pulmonary embolic disease. 3. No focal infiltrate. 4. No acute abnormality identified within the abdomen and pelvis. 5. Other findings as above. Electronically signed by: Sonya Lowe MD 11/26/2024 03:56 AM CDT Due to temporary technical issues with the PACS/[employer] reporting system, reports are being avni d by the in-house radiologist without review as a courtesy to ensure prompt reporting the interpreting radiologist is fully responsible for the content of the report. Transcribed Date/Time: 11/26/2024 4:10 AM
[2024-11-26 05:03] VITALS: BMI 25.8
[2024-11-26] MEDS ORDERED: HYDRALAZINE HCL 20 MG/ML VIAL IV PRN (05:39)
[2024-11-26] MEDS: METHYLPREDNISOLONE 40 MG INJ IV ONE (05:39)
[2024-11-26] MEDS: IPRATROPIUM BROM 0.5MG/2.5ML NEB SCH (07:55)
[2024-11-26] MEDS: ALBUTEROL 2.5 MG/3 ML NEB SOL NEB SCH (07:55)
[2024-11-26] MEDS ORDERED: ALBUTEROL 2.5 MG/3 ML NEB SOL NEB PRN ×2 (08:00→10:49)
[2024-11-26] MEDS: HOME MED 1 EA UNK (Thyroid,Pork [Armour Thyroid] 60 MG Tablet) PO SCH (08:29)
[2024-11-26] MEDS ORDERED: THYROID PORK 15 MG PO SCH (08:29)
[2024-11-26 09:03] VITALS: TEMP 97.6
[2024-11-26] MEDS: METOPROLOL XL 25 MG TAB PO SCH (09:41)
--- NOTE | 2024-11-26 11:09 | P.DS ---
Admission Date: 11/26/24 Discharge Date: 11/26/24 Disposition: ROUTINE DISCHARGE Discharge Condition: FAIR Reason for Admission: COPD exacerbation Brief History of Present Illness: 89 yrs old Male with past medical history of hypertension, hypothyroidism, BPH, osteoarthritis, aortic aneurysm was brought to ER with elevated blood pressure and shortness of breath. Patient reported shortness of breath of 1 day duration, worse with movement, denied any chest pain. Patient noted to have high blood pressure. Patient was assessed in the ER, CT dissection did not show any aneurysm, it did demonstrate fibrosis in the peripheral lungs. Patient diagnosed with COPD exacerbation and was admitted for further management. Hospital Course: Diagnosis COPD exacerbation Essential hypertension Hypothyroidism History of aortic aneurysm Patient was admitted to the medical floor and treated for COPD exacerbation with scheduled bronchodilators. Patient was given a dose of IV steroid. He did not require oxygen and was stable on room air with good oxygen saturation. Patient evaluated by pulmonary Dr. Blackman and deemed stable for discharge. Patient blood pressure was controlled on his home antihypertensive (metoprolol). Patient reports significant improvement in his symptoms and feels at baseline. Vitals are stable. Patient is deemed stable for discharge. Vital Signs/Physical Exam: Temp Pulse Resp BP Pulse Ox 97.6 F 76 20 146/65 H 95 11/26/24 08:00 11/26/24 09:41 11/26/24 08:00 11/26/24 09:41 11/26/24 08:00 General: Alert, In no apparent distress, Oriented x3 HEENT: Mucous membr. moist/pink, Sclerae nonicteric Neck: Supple, JVD not distended Respiratory: Clear to auscultation bilaterally, Normal air movement Cardiovascular: No edema, Regular rate/rhythm, Normal S1 S2 Gastrointestinal: Normal bowel sounds, Soft and benign, Non-distended, No tenderness Musculoskeletal: No swelling Integumentary: No rashes, No cyanosis Neurological: Normal speech, Normal strength at 5/5 x4 extr Laboratory Data at Discharge: WBC 5.60 thou/uL (4.3-10.9) 11/25/24 23:20 Hgb 12.2 g/dL (13.6-17.9) L 11/25/24 23:20 Hct 35.8 % (39.6-49.0) L 11/25/24 23:20 Plt Count 192 thou/uL (152-406) 11/25/24 23:20 PT 12.0 SECONDS (10-13.0) 11/25/24 23:20 INR 1.06 11/25/24 23:20 Sodium 138 mEq/L (136-145) 11/25/24 23:20 Potassium 4.0 mEq/L (3.5-5.1) 11/25/24 23:20 BUN 27 mg/dL (7-18) H 11/25/24 23:20 Creatinine 1.28 mg/dL (0.70-1.30) 11/25/24 23:20 Glucose 122 mg/dL (74-106) H 11/25/24 23:20 Magnesium 2.6 mg/dL (1.6-2.4) H 11/25/24 23:20 Total Bilirubin 0.4 mg/dL (0.2-1.0) 11/25/24 23:20 AST 23 U/L (15-37) 11/25/24 23:20 ALT 19 U/L (16-61) 11/25/24 23:20 Alkaline Phosphatase 80 U/L (45-117) 11/25/24 23:20 Lipase 47 U/L (13-75) 11/25/24 23:20 Home Medications: Tamsulosin [Flomax*] 0.4 mg PO BEDTIME 06/14/22 Thyroid,Pork [[place] Thyroid] 15 mg PO SEECOM 06/14/22 Thyroid,Pork [[place] Thyroid] 60 mg PO [id number] 06/14/22 Fluticasone/Vilanterol [Breo Ellipta 200-25 Mcg Inhalr] 1 puff IH BEDTIME 05/19/23 Aspirin [Aspirin EC 81 MG] 81 mg PO NOON 11/08/23 Metoprolol Succinate [Toprol Xl*] 25 mg PO DAILY 11/08/23 Saw/Vit E/Sod Ruby/Lyc/Beta/Pyg [Prostate Health Caplet] 1 each PO NOON 11/08/23 Bosmed 500 1 cap PO DAILY 11/26/24 Curamed Curcumin 1 cap PO NOON 11/26/24 L. Acidophilus/L.bulgaricus [Lactobacillus Tablet] 1 each PO DAILY 11/26/24 Multivitamin 1 each PO DAILY 11/26/24 Sertraline HCl 50 mg PO BEDTIME 11/26/24 Physician Discharge Instructions: Patient was admitted to the medical floor and treated for COPD exacerbation with scheduled bronchodilators. Patient was given a dose of IV steroid. He did not require oxygen and was stable on room air with good oxygen saturation. Patient evaluated by pulmonary Dr. Blackman and deemed stable for discharge. Patient blood pressure was controlled on his home antihypertensive (metoprolol). Patient deemed clinically stable. New medications: Follow-up Pulmonary Dr. Medrano within 1 to 2 weeks Diet: AHA Activity: Ad rina Followup: Ari Flores DO [Primary Care Provider] - 1-2 Weeks Time spent managing pt's care (in minutes): 32
--- NOTE | 2024-11-26 11:29 | EKG ---
Test Date: 2024-11-25 Test Time: 23:27:59 Supervisor Home [employer] Consultant: RIANNA MEASUREMENT RESULTS: Intervals: Rate: 67 OH: 198 QRSD: 134 QT: 434 QTc: 458 Dexter: P: 68 OH: 198 QRS: -69 T: 29 INTERPRETIVE STATEMENTS: Normal sinus rhythm Right bundle branch block Left anterior fascicular block Bifascicular block Abnormal ECG Compared to ECG 11/08/2023 09:18:49 Right bundle-branch block now present Bifascicular block now present Atrial premature complex(es) no longer present Left ventricular hypertrophy no longer present Myocardial infarct finding no longer present Electronically Signed On 11-26-24 11:28:32 CDT by Matias Wade
[2024-11-26] MEDS: ASPIRIN EC 81 MG TAB PO SCH (11:50)
[2024-11-26] MEDS: THYROID 30 MG TAB PO SCH (11:50)
[2024-11-26 12:08] VITALS: BP 111/60
--- NOTE | 2024-11-26 12:17 | P.CNS ---
Date of Consult: 11/26/24 Reason for Consult: COPD exacerbation Chief Complaint: COPD exacerbation History of Present Illness: Patient is 89 years of age became sick about a week ago started complaining of progressive dyspnea cough and congestion admitted to the hospital he is doing much better now denies any fever or chills wants to go home patient is compliant with his inhaler at home Allergies No Known Allergies Allergy (Verified 11/08/23 09:04) Home Medications: Tamsulosin [Flomax*] 0.4 mg PO BEDTIME 06/14/22 Thyroid,Pork [[place] Thyroid] 15 mg PO SEECOM 06/14/22 Thyroid,Pork [[place] Thyroid] 60 mg PO [id number] 06/14/22 Fluticasone/Vilanterol [Breo Ellipta 200-25 Mcg Inhalr] 1 puff IH BEDTIME 05/19/23 Aspirin [Aspirin EC 81 MG] 81 mg PO NOON 11/08/23 Metoprolol Succinate [Toprol Xl*] 25 mg PO DAILY 11/08/23 Saw/Vit E/Sod Ruby/Lyc/Beta/Pyg [Prostate Health Caplet] 1 each PO NOON 11/08/23 Bosmed 500 1 cap PO DAILY 11/26/24 Curamed Curcumin 1 cap PO NOON 11/26/24 L. Acidophilus/L.bulgaricus [Lactobacillus Tablet] 1 each PO DAILY 11/26/24 Multivitamin 1 each PO DAILY 11/26/24 Sertraline HCl 50 mg PO BEDTIME 11/26/24 - Past Medical/Surgical History Diabetic: No -: aortic aneurysm -: tinnitus -: HTN -: BPH -: hypothyroidsm -: bladder CA -: arthritis -: tonsillectomy/adenoidectomy -: hernia repair -: sabra cataract sx -: tonisllectomy Psychosocial/ Personal History: Lives at home with family - Family History Father Medical History: Heart disease, Hypertension Notes: thyroid problems Mother Medical History: Heart disease, Hypertension Brother Medical History: Heart disease, Hypertension Sister Medical History: Heart disease, Hypertension - Social History Alcohol use: No CD- Drugs: No Caffeine use: No Review of Systems 10-point ROS is otherwise unremarkable Physical Examination Temp Pulse Resp BP Pulse Ox 97.6 F 77 20 111/60 96 11/26/24 12:00 11/26/24 12:00 11/26/24 12:00 11/26/24 12:00 11/26/24 12:00 General: Alert HEENT: Atraumatic Neck: Supple Respiratory: Clear to auscultation bilaterally Cardiovascular: No edema, Regular rate/rhythm Laboratory Data (last 24 hrs) 11/25/24 11/25/24 11/25/24 23:20 23:20 23:20 WBC 5.60 Hgb 12.2 L Hct 35.8 L Plt Count 192 PT 12.0 INR 1.06 Sodium 138 Potassium 4.0 BUN 27 H Creatinine 1.28 Glucose 122 H Magnesium 2.6 H Total Bilirubin 0.4 AST 23 ALT 19 Alkaline Phosphatase 80 Lipase 47 - Problems (1) COPD exacerbation Current Visit: Yes Status: Acute Plan: Patient is 89 years of age with a history of COPD compliant with his inhalers admitted with an exacerbation he is doing much better patient uses Breo at home since he has had an exacerbation we will change him over to Trelegy labs chemistries reviewed chest x-ray shows some presumed chronic interstitial changes patient is doing well has improved plan to discharge on low-dose prednisone 10 mg twice a day for a week continue with Breo follow-up with me in 2 to 4 weeks will consider triple therapy if the insurance covers
[2024-11-26 13:45] VITALS: O2SAT 96
--- NOTE | 2024-11-26 20:39 | P.PN ---
Date of Service: 11/26/24 Medicare patient discharged with < 2 midnights of care in hospital. I discussed the case with Dr. Alcantara and reviewed the chart prior to patient being discharged. I agree with status downgrade to observation / condition code 44.
[2024-11-26] MEDS ORDERED: SERTRALINE HCL 50 MG TAB PO SCH (21:00)
[2024-11-26] MEDS ORDERED: TAMSULOSIN 0.4 MG SR CAP PO SCH (21:00)
[2024-11-26] MEDS ORDERED: HOME MED 1 EA UNK (Fluticasone/Vilanterol [Breo Ellipta 200-25 Mcg Inhalr] Blst.W.Dev) IH SCH (21:00)
[2024-11-29] MEDS ORDERED: THYROID 30 MG TAB PO SCH (06:00)
== END 2024-11-26 15:54 | disposition home or self-care (01) ==
LOC: ER 22:34 → 2ND 11-26 02:45 → INTOOBSV 11-26 02:45
PROVIDERS: ADMIT Family Medicine; ATTEND Internal Medicine
DX: J44.1 Chronic obstructive pulmonary disease with (acute) exacerbation (principal); I10 Essential (primary) hypertension; E03.9 Hypothyroidism, unspecified; N40.0 Benign prostatic hyperplasia without lower urinary tract symptoms; M19.90 Unspecified osteoarthritis, unspecified site; E78.5 Hyperlipidemia, unspecified
CPT/HCPCS: 93005; 85025; 80048; 36415; 83735; 85610; 80076; 81003; 84484; 83690; 83880; 71275; 74175; 71045; 94760 ×3; Q9967; J7614; J7613 ×2; J7644 ×3; J2919; J7040; G0378

== ENCOUNTER 2024-12-17 14:04 | Emergency (ER) | payer OTHER ==
--- OUTSIDE RECORDS SUMMARY | 2024-12-17 14:11 | XMS REPORT | Continuity of Care Document ---
Author Name Unknown Address [address] [facility] [address] [place] [address] [facility] [place] Address [address] [facility] [address] [place] [address] Care Team Providers Care Marbleizing Machine Tender Name Role Phone Hiral HANSON, Charles [facility]od Primary Care Physician [phone] Ari Flores Attending Clinician Unavailable Jammie Menard Attending Clinician Unavailab le Payers Payer Name Policy Type Policy Number Effective Date Expiration Date Source [facility] Shared Services 53 [id number] [facility] 53 [id number] [facility] MEDICARE NOVITAS [id number] 2000 00:00:00 [id number] 2000 00:00:00 [facility] Problems Condition Name Condition Details Condition Category Status Onset Date Resolution Date Last Treatment Date Treating Clinician Comments Source [id number] Right leg pain Problem [facility] [id number] Other tear of medial meniscus of right knee as current injury, subsequent encounter Problem [facility] [id number] Synovial plica syndrome of right knee Problem [facility] [id number] Status post arthroscop y of knee Problem [facility] [id number] Voiding dysfunctio n Problem [facility] 443495034 Interstiti al pulmonary disease Problem [facility] 49947787 Hepatic cyst Problem [facility] 934917274 Right upper lobe pulmonary nodule Problem [facility] [id number] Left thyroid nodule Problem [facility] 889460033 Paroxysmal atrial fibrillati on Problem [facility] 85941648 Scrotal varices Problem [facility] 98109738 Gait instabilit y Problem [facility] [id number] DSD (detrusor and sphincter dyssynergi a) Problem [facility] 511245707 Lower urinary tract symptoms (LUTS) Problem [facility] 332233708 History of bladder cancer Problem [facility] [id number] Incomplete bladder emptying Problem [facility] 265066008 Lesion of bladder Problem [facility] 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 Problem [facility] 485122215 Stage 3 chronic kidney disease, unspecifie d whether stage 3a or 3b CKD Problem [facility] [id number] Pain, joint, hand, right Problem [facility] 173898663 Mass of right hand Problem [facility] 7892420 Urethral pain Problem [facility] 19902927 Acute stress reaction Problem [facility] 12844980 Generalize d anxiety disorder Problem [facility] 6655465 Primary insomnia Problem [facility] Allergic rhinitis Non-season al allergic rhinitis, unspecifie d trigger Problem [facility] [id number] Pain, joint, shoulder, left Problem [facility] 54502766 Cervical pain (neck) Problem [facility] Anemia Anemia, unspecifie d type Problem [facility] 942274340 COPD exacerbati on Problem [facility] 160561188 OAB (overactiv e bladder) Problem [facility] [id number] 68075 Primary osteoarthr itis of right knee Problem [facility] 4442861291 32455 Pain, joint, knee, right Problem [facility] Constipati on Constipati on Problem [facility] Urinary incontinen ce Urinary incontinen ce Problem [facility] [id number] Contusion of right knee, initial encounter Problem [facility] 256326353 Hypothyroi dism (acquired) Problem [facility] 78588359 Thoracic aortic aneurysm without rupture Problem [facility] 538856886 PAD (periphera l artery disease) Problem [facility] 84131425 Essential hypertensi on Problem [facility] 913664172 Benign prostatic hyperplasi a with lower urinary tract symptoms, symptom details unspecifie d Problem [facility] 020602063 Mixed hyperlipid emia Problem [facility] 267910211 Coronary artery disease involving [place] coronary artery of [place] heart with angina pectoris Problem [facility] 886590967 Malignant neoplasm of urinary bladder, unspecifie d site Problem [facility] 13956432 Pain in joint of right knee Problem [facility] Hypothyroi dism (disorder) Hypothyroi dism (disorder) Active Problem 07/08/2023 [facility] [place] Problem Active 2023-07-08 00:12:46 Memoria l Eliud Impaired cognition (finding) Impaired cognition (finding) Active Problem 07/08/2023 [facility] [place] Problem Active 2023-07-08 00:12:46 Memoria l Jackson Atrial fibrillati on (disorder) Atrial fibrillati on (disorder) Active Problem 07/08/2023 [facility] [place] Problem Active 2023-07-08 00:12:46 Remberto Kline Dementia (disorder) Dementia (disorder) Active Problem 07/08/2023 [facility] [place] Problem Active 2023-07-08 00:12:46 Remberto Kline Amnesia (finding) Amnesia (finding) Active Problem 07/08/2023 [facility] [place] Problem Active 2023-07-08 00:12:46 Remberto Kline Hyperlipid emia (disorder) Hyperlipid emia (disorder) Active Problem 07/08/2023 [facility] [place] Problem Active 2023-07-08 00:12:46 Remberto Kline Hypertensi ve disorder, systemic arterial (disorder) Hypertensi ve disorder, systemic arterial (disorder) Active Problem 07/08/2023 [facility] [place] Problem Active 2023-07-08 00:12:46 Remberto Kline Social History Social Habit Start Date Stop Date Quantity Comments Source History of Tobacco Use [facility] Sex Assigned At [facility] Smoking Status Start Date Stop Date Source Tobacco smoking status Hunter Kline Medications Ordered Medication Name Filled Medication Name Start Date Stop Date Current Medication? Ordering Clinician Indication Dosage Frequency Signature (SIG) Comments Components Source doxepin 10 mg capsule 4-10 00:00: 00 Yes 1mg Marshall Briseno prednisone 10 mg tablet 4-07 00:00: 00 Yes mg Marshall Briseno sertraline 25 mg tablet 3-24 00:00: 00 Yes mg Marshall Briseno [place] Thyroid 60 mg tablet 2-28 00:00: 00 Yes mg Marshall Briseno metoprolol succinate ER 25 mg tablet,exte nded release 24 hr 2-09 00:00: 00 Yes mg Marshall Briseno Breo Ellipta 200 mcg-25 mcg/dose powder for inhalation 1-06 00:00: 00 Yes mcg/dos e Marshall Briseno albuterol sulfate HFA 90 mcg/actuati on aerosol inhaler 2023-08 2-11 00:00: 00 Yes mcg/act uation Marshall Briseno Phenazopyri dine HCl 200 MG Phenazopyri dine HCl 200 MG 2023-08 0-15 00:00: 00 No 1{table t_after _meals} TID Phenazopyr idine HCl 200 MG tamsulosin 0.4 mg capsule 2023-08 0-07 00:00: 00 Yes mg Marshall Briseno Albuterol Sulfate 1.25 MG/3ML Albuterol Sulfate 1.25 MG/3ML 9-19 00:00: 00 No 3{ml_as _needed } Albuterol Sulfate 1.25 MG/3ML Albuterol Sulfate HFA 108 (90 Base) MCG/ACT Albuterol Sulfate HFA 108 (90 Base) MCG/ACT -19 00:00: 00 No 2{puff_ as_need ed} 6xD Albuterol Sulfate HFA 108 (90 Base) MCG/ACT Metoprolol Succinate 25 MG Metoprolol Succinate 25 MG 9- 00:00: 00 No 1{capsu le} QD Metoprolol Succinate 25 MG Sertraline HCl 25 MG Sertraline HCl 25 MG 8- 00:00: 00 No 1{table t} QD Sertraline HCl 25 MG Mupirocin 2 % Mupirocin 2 % 8-13 00:00: 00 No 1{appli cation} BID Mupirocin 2 % Namenda 5 mg oral tablet 2022-08- 20:31: 00 Yes 5 mg = 1 tab, PO, BID, # 180 tab, 1 Refill(s), Pharmacy: [id number], 165.1, cm, 06/10/23 10:53:00 CDT, Height, 75, kg, 06/10/23 10:53:00 CDT, Weight Memoria l Eliud Namenda 5 mg oral tablet 2022-08 0 16:22: 00 Yes 5 mg = 1 tab, PO, BID, # 60 tab, 3 Refill(s), Pharmacy: [id number], 165.1, cm, 06/10/23 10:53:00 CDT, Height, 75, kg, 06/10/23 10:53:00 CDT, Weight Memoria l Eliud Arnuity Ellipta 2022-08 0- 15:53: 00 Yes PO, 0 Refill(s) Memoria l Jackson [place] Thyroid 15 mg oral tablet 2022-08 15:53: 00 Yes = 1 tab, PO, 0 Refill(s) Remberto Kline Eliquis 5 mg oral tablet 05-20 17:56: 00 Yes 5 mg, PO, Q12H, tab, 0 Refill(s), For Atrial Fibrilatio n Remberto Kline metoprolol tartrate 25 mg oral tablet 05-20 17:55: 00 Yes 12.5 mg = 0.5 tab, PO, BID, 0 Refill(s) Remberto Kline donepezil 5 mg oral tablet 12-09 19:32: 00 Yes = 1 tab, PO, Daily, # 90 tab, 1 Refill(s), Pharmacy: [id number], 165.1, cm, 12/09/22 11:27:00 CDT, Height, 75, kg, 12/09/22 11:27:00 CDT, Weight Remberto Kline Hyalgan Hyalgan 12-02 00:00: 00 No 2mL [facility] esomeprazol e 20 mg oral [...] Lidocaine Lidocaine 12-07 00:00: 00 No 10mg [facility] Kenalog (Triamcinol one) Kenalog (Triamcinol one) 12-07 00:00: 00 No 40mg [facility] [place] Thyroid 60 MG [place] Thyroid 60 MG No 1{table t_on_an _empty_ stomach } QD [place] Thyroid 60 MG predniSONE 10 MG predniSONE [...] Pneumovax (PPSV23) Pneumovax (PPSV23) 2021-09-15 15:17:00 Completed [facility] Pneumovax (PPSV23) Pneumovax (PPSV23) 2021-09-15 15:17:00 Completed [facility] Pneumovax (PPSV23) Pneumovax (PPSV23) 2021-09-15 15:17:00 Completed [facility] Pneumovax (PPSV23) Pneumovax (PPSV23) 2021-09-15 15:17:00 Completed [facility] Pneumovax (PPSV23) Pneumovax (PPSV23) 2021-09-15 15:17:00 Completed [facility] Pneumovax (PPSV23) Pneumovax (PPSV23) 2021-09-15 15:17:00 Completed [facility] Pneumovax (PPSV23) Pneumovax (PPSV23) 2021-09-15 15:17:00 Completed [facility] Pneumovax (PPSV23) Pneumovax (PPSV23) 2021-09-15 15:17:00 Completed [facility] Pneumovax (PPSV23) Pneumovax (PPSV23) 2021-09-15 15:17:00 Completed [facility] Pneumovax (PPSV23) Pneumovax (PPSV23) 2021-09-15 15:17:00 Completed [facility] Pneumovax (PPSV23) Pneumovax (PPSV23) 2021-09-15 15:17:00 Completed [facility] Pneumovax (PPSV23) Pneumovax (PPSV23) 2021-09-15 15:17:00 Completed [facility] Pneumovax (PPSV23) Pneumovax (PPSV23) 2021-09-15 15:17:00 Completed [facility] Pneumovax (PPSV23) Pneumovax (PPSV23) 2021-09-15 15:17:00 Completed [facility] Pneumovax (PPSV23) Pneumovax (PPSV23) 2021-09-15 15:17:00 Completed [facility] Pneumovax (PPSV23) Pneumovax (PPSV23) 2021-09-15 15:17:00 Completed [facility] Pneumovax (PPSV23) Pneumovax (PPSV23) 2021-09-15 15:17:00 Completed [facility] Pneumovax (PPSV23) Pneumovax (PPSV23) 2021-09-15 15:17:00 Completed [facility] Pneumovax (PPSV23) Pneumovax (PPSV23) 2021-09-15 15:17:00 Completed [facility] Pneumovax (PPSV23) Pneumovax (PPSV23) 2021-09-15 15:17:00 Completed [facility] Pneumovax (PPSV23) Pneumovax (PPSV23) 2021-09-15 15:17:00 Completed [facility] Pneumovax (PPSV23) Pneumovax (PPSV23) 2021-09-15 15:17:00 Completed [facility] Pneumovax (PPSV23) Pneumovax (PPSV23) 2021-09-15 15:17:00 Completed [facility] Pneumovax (PPSV23) Pneumovax (PPSV23) 2021-09-15 15:17:00 Completed [facility] Pneumovax (PPSV23) Pneumovax (PPSV23) 2021-09-15 15:17:00 Completed [facility] Pneumovax (PPSV23) Pneumovax (PPSV23) 2021-09-15 15:17:00 Completed [facility] Pneumovax (PPSV23) Pneumovax (PPSV23) 2021-09-15 15:17:00 Completed [facility] Pneumovax (PPSV23) Pneumovax (PPSV23) 2021-09-15 15:17:00 Completed [facility] Pneumovax (PPSV23) Pneumovax (PPSV23) 2021-09-15 15:17:00 Completed [facility] Pneumovax (PPSV23) Pneumovax (PPSV23) 2021-09-15 15:17:00 Completed [facility] Pneumovax (PPSV23) Pneumovax (PPSV23) 2021-09-15 15:17:00 Completed [facility] Pneumovax (PPSV23) Pneumovax (PPSV23) 2021-09-15 15:17:00 Completed [facility] Pneumovax (PPSV23) Pneumovax (PPSV23) 2021-09-15 15:17:00 Completed [facility] Pneumovax (PPSV23) Pneumovax (PPSV23) Unknown Completed [facility] Pneumovax (PPSV23) Pneumovax (PPSV23) Unknown Completed [facility] Pneumovax (PPSV23) Pneumovax (PPSV23) Unknown Completed [facility] Pneumovax (PPSV23) Pneumovax (PPSV23) Unknown Completed [facility] Pneumovax (PPSV23) Pneumovax (PPSV23) Unknown Completed [facility] Pneumovax (PPSV23) Pneumovax (PPSV23) Unknown Completed [facility] Pneumovax (PPSV23) Pneumovax (PPSV23) Unknown Completed [facility] Pneumovax (PPSV23) Pneumovax (PPSV23) Unknown Completed [facility] Pneumovax (PPSV23) Pneumovax (PPSV23) Unknown Completed [facility] Pneumovax (PPSV23) Pneumovax (PPSV23) Unknown Completed [facility] Pneumovax (PPSV23) Pneumovax (PPSV23) Unknown Completed [facility] Pneumovax (PPSV23) Pneumovax (PPSV23) Unknown Completed [facility] Pneumovax (PPSV23) Pneumovax (PPSV23) Unknown Completed [facility] Pneumovax (PPSV23) Pneumovax (PPSV23) Unknown Completed [facility] Pneumovax (PPSV23) Pneumovax (PPSV23) Unknown Completed [facility] Pneumovax (PPSV23) Pneumovax (PPSV23) Unknown Completed [facility] Pneumovax (PPSV23) Pneumovax (PPSV23) Unknown Completed [facility] Pneumovax (PPSV23) Pneumovax (PPSV23) Unknown Completed [facility] Pneumovax (PPSV23) Pneumovax (PPSV23) Unknown Completed [facility] Pneumovax (PPSV23) Pneumovax (PPSV23) Unknown Completed [facility] Pneumovax (PPSV23) Pneumovax (PPSV23) Unknown Completed [facility] Pneumovax (PPSV23) Pneumovax (PPSV23) Unknown Completed [facility] Pneumovax (PPSV23) Pneumovax (PPSV23) Unknown Completed [facility] Pneumovax (PPSV23) Pneumovax (PPSV23) Unknown Completed [facility] Pneumovax (PPSV23) Pneumovax (PPSV23) Unknown Completed [facility] Pneumovax (PPSV23) Pneumovax (PPSV23) Unknown Completed [facility] Pneumovax (PPSV23) Pneumovax (PPSV23) Unknown Completed [facility] Pneumovax (PPSV23) Pneumovax (PPSV23) Unknown Completed [facility] Pneumovax (PPSV23) Pneumovax (PPSV23) Unknown Completed [facility] Pneumovax (PPSV23) Pneumovax (PPSV23) Unknown Completed [facility] Pneumovax (PPSV23) Pneumovax (PPSV23) Unknown Completed [facility] Pneumovax (PPSV23) Pneumovax (PPSV23) Unknown Completed [facility] Pneumovax (PPSV23) Pneumovax (PPSV23) Unknown Completed [facility] Pneumovax (PPSV23) Pneumovax (PPSV23) Unknown Completed [facility] Pneumovax (PPSV23) Pneumovax (PPSV23) Unknown Completed [facility] Pneumovax (PPSV23) Pneumovax (PPSV23) Unknown Completed [facility] Pneumovax (PPSV23) Pneumovax (PPSV23) Unknown Completed [facility] Pneumovax (PPSV23) Pneumovax (PPSV23) Unknown Completed [facility] Pneumovax (PPSV23) Pneumovax (PPSV23) Unknown Completed [facility] Fluad (aIIV4) - SDS - 0.5mL Fluad (aIIV4) - SDS - 0.5mL Unknown Completed [facility] Pneumovax (PPSV23) Pneumovax (PPSV23) Unknown Completed [facility] Fluad (aIIV4) - SDS - 0.5mL Fluad (aIIV4) - SDS - 0.5mL Unknown Completed [facility] Pneumovax (PPSV23) Pneumovax (PPSV23) Unknown Completed [facility] Fluad (aIIV4) - SDS - 0.5mL Fluad (aIIV4) - SDS - 0.5mL Unknown Completed [facility] Pneumovax (PPSV23) Pneumovax (PPSV23) Unknown Completed [facility] Fluad (aIIV4) - SDS - 0.5mL Fluad (aIIV4) - SDS - 0.5mL Unknown Completed [facility] Pneumovax (PPSV23) Pneumovax (PPSV23) Unknown Completed [facility] Fluad (aIIV4) - SDS - 0.5mL Fluad (aIIV4) - SDS - 0.5mL Unknown Completed [facility] Pneumovax (PPSV23) Pneumovax (PPSV23) Unknown Completed [facility] Fluad (aIIV4) - SDS - 0.5mL Fluad (aIIV4) - SDS - 0.5mL Unknown Completed [facility] Pneumovax (PPSV23) Pneumovax (PPSV23) Unknown Completed [facility] Fluad (aIIV4) - SDS - 0.5mL Fluad (aIIV4) - SDS - 0.5mL Unknown Completed [facility] Pneumovax (PPSV23) Pneumovax (PPSV23) Unknown Completed [facility] Fluad (aIIV4) - SDS - 0.5mL Fluad (aIIV4) - SDS - 0.5mL Unknown Completed [facility] Pneumovax (PPSV23) Pneumovax (PPSV23) Unknown Completed [facility] Fluad (aIIV4) - SDS - 0.5mL Fluad (aIIV4) - SDS - 0.5mL Unknown Completed [facility] Pneumovax (PPSV23) Pneumovax (PPSV23) Unknown Completed [facility] Prevnar 20 (PCV20) Prevnar 20 (PCV20) Unknown Completed [facility] Fluad (aIIV4) - SDS - 0.5mL Fluad (aIIV4) - SDS - 0.5mL Unknown Completed [facility] Pneumovax (PPSV23) Pneumovax (PPSV23) Unknown Completed [facility] Prevnar 20 (PCV20) Prevnar 20 (PCV20) Unknown Completed [facility] Fluad (aIIV4) - SDS - 0.5mL Fluad (aIIV4) - SDS - 0.5mL Unknown Completed [facility] Pneumovax (PPSV23) Pneumovax (PPSV23) Unknown Completed [facility] Prevnar 20 (PCV20) Prevnar 20 (PCV20) Unknown Completed [facility] Fluad (aIIV4) - SDS - 0.5mL Fluad (aIIV4) - SDS - 0.5mL Unknown Completed [facility] Pneumovax (PPSV23) Pneumovax (PPSV23) Unknown Completed [facility] Prevnar 20 (PCV20) Prevnar 20 (PCV20) Unknown Completed [facility] Fluad (aIIV4) - SDS - 0.5mL Fluad (aIIV4) - SDS - 0.5mL Unknown Completed [facility] Pneumovax (PPSV23) Pneumovax (PPSV23) Unknown Completed [facility] Prevnar 20 (PCV20) Prevnar 20 (PCV20) Unknown Completed [facility] Fluad (aIIV4) - SDS - 0.5mL Fluad (aIIV4) - SDS - 0.5mL Unknown Completed [facility] Pneumovax (PPSV23) Pneumovax (PPSV23) Unknown Completed [facility] Prevnar 20 (PCV20) Prevnar 20 (PCV20) Unknown Completed [facility] Fluad (aIIV4) - SDS - 0.5mL Fluad (aIIV4) - SDS - 0.5mL Unknown Completed [facility] Pneumovax (PPSV23) Pneumovax (PPSV23) Unknown Completed [facility] Prevnar 20 (PCV20) Prevnar 20 (PCV20) Unknown Completed [facility] Fluad (aIIV4) - SDS - 0.5mL Fluad (aIIV4) - SDS - 0.5mL Unknown Completed [facility] Pneumovax (PPSV23) Pneumovax (PPSV23) Unknown Completed [facility] Prevnar 20 (PCV20) Prevnar 20 (PCV20) Unknown Completed [facility] Fluad (aIIV4) - SDS - 0.5mL Fluad (aIIV4) - SDS - 0.5mL Unknown Completed [facility] Pneumovax (PPSV23) Pneumovax (PPSV23) Unknown Completed [facility] Prevnar 20 (PCV20) Prevnar 20 (PCV20) Unknown Completed [facility] Fluad (aIIV4) - SDS - 0.5mL Fluad (aIIV4) - SDS - 0.5mL Unknown Completed [facility] Pneumovax (PPSV23) Pneumovax (PPSV23) Unknown Completed [facility] Prevnar 20 (PCV20) Prevnar 20 (PCV20) Unknown Completed [facility] Fluad (aIIV4) - SDS - 0.5mL Fluad (aIIV4) - SDS - 0.5mL Unknown Completed [facility] Pneumovax (PPSV23) Pneumovax (PPSV23) Unknown Completed [facility] Prevnar 20 (PCV20) Prevnar 20 (PCV20) Unknown Completed [facility] Fluad (aIIV4) - SDS - 0.5mL Fluad (aIIV4) - SDS - 0.5mL Unknown Completed [facility] Pneumovax (PPSV23) Pneumovax (PPSV23) Unknown Completed [facility] Prevnar 20 (PCV20) Prevnar 20 (PCV20) Unknown Completed [facility] Fluad (aIIV4) - SDS - 0.5mL Fluad (aIIV4) - SDS - 0.5mL Unknown Completed [facility] Pneumovax (PPSV23) Pneumovax (PPSV23) Unknown Completed [facility] Prevnar 20 (PCV20) Prevnar 20 (PCV20) Unknown Completed [facility] Fluad (aIIV4) - SDS - 0.5mL Fluad (aIIV4) - SDS - 0.5mL Unknown Completed [facility] Pneumovax (PPSV23) Pneumovax (PPSV23) Unknown Completed [facility] Prevnar 20 (PCV20) Prevnar 20 (PCV20) Unknown Completed [facility] Fluad (aIIV4) - SDS - 0.5mL Fluad (aIIV4) - SDS - 0.5mL Unknown Completed [facility] Pneumovax (PPSV23) Pneumovax (PPSV23) Unknown Completed [facility] Prevnar 20 (PCV20) Prevnar 20 (PCV20) Unknown Completed [facility] Fluad (aIIV4) - SDS - 0.5mL Fluad (aIIV4) - SDS - 0.5mL Unknown Completed [facility] Pneumovax (PPSV23) Pneumovax (PPSV23) Unknown Completed [facility] Prevnar 20 (PCV20) Prevnar 20 (PCV20) Unknown Completed [facility] Fluad (aIIV4) - SDS - 0.5mL Fluad (aIIV4) - SDS - 0.5mL Unknown Completed [facility] Pneumovax (PPSV23) Pneumovax (PPSV23) Unknown Completed [facility] Prevnar 20 (PCV20) Prevnar 20 (PCV20) Unknown Completed [facility] Fluad (aIIV4) - SDS - 0.5mL Fluad (aIIV4) - SDS - 0.5mL Unknown Completed [facility] Pneumovax (PPSV23) Pneumovax (PPSV23) Unknown Completed [facility] Prevnar 20 (PCV20) Prevnar 20 (PCV20) Unknown Completed [facility] Fluad (aIIV4) - SDS - 0.5mL Fluad (aIIV4) - SDS - 0.5mL Unknown Completed [facility] Pneumovax (PPSV23) Pneumovax (PPSV23) Unknown Completed [facility] Prevnar 20 (PCV20) Prevnar 20 (PCV20) Unknown Completed [facility] Fluad (aIIV4) - SDS - 0.5mL Fluad (aIIV4) - SDS - 0.5mL Unknown Completed [facility] Pneumovax (PPSV23) Pneumovax (PPSV23) Unknown Completed [facility] Prevnar 20 (PCV20) Prevnar 20 (PCV20) Unknown Completed [facility] Fluad (aIIV4) - SDS - 0.5mL Fluad (aIIV4) - SDS - 0.5mL Unknown Completed [facility] Pneumovax (PPSV23) Pneumovax (PPSV23) Unknown Completed [facility] Prevnar 20 (PCV20) Prevnar 20 (PCV20) Unknown Completed [facility] Fluad (aIIV4) - SDS - 0.5mL Fluad (aIIV4) - SDS - 0.5mL Unknown Completed [facility] Pneumovax (PPSV23) Pneumovax (PPSV23) Unknown Completed [facility] Prevnar 20 (PCV20) Prevnar 20 (PCV20) Unknown Completed [facility] Fluad (aIIV4) - SDS - 0.5mL Fluad (aIIV4) - SDS - 0.5mL Unknown Completed [facility] Pneumovax (PPSV23) Pneumovax (PPSV23) Unknown Completed [facility] Prevnar 20 (PCV20) Prevnar 20 (PCV20) Unknown Completed [facility] Fluad (aIIV4) - SDS - 0.5mL Fluad (aIIV4) - SDS - 0.5mL Unknown Completed [facility] Pneumovax (PPSV23) Pneumovax (PPSV23) Unknown Completed [facility] Prevnar 20 (PCV20) Prevnar 20 (PCV20) Unknown Completed [facility] Fluad (aIIV4) - SDS - 0.5mL Fluad (aIIV4) - SDS - 0.5mL Unknown Completed [facility] Pneumovax (PPSV23) Pneumovax (PPSV23) Unknown Completed [facility] Prevnar 20 (PCV20) Prevnar 20 (PCV20) Unknown Completed [facility] Fluad (aIIV4) - SDS - 0.5mL Fluad (aIIV4) - SDS - 0.5mL Unknown Completed [facility] Pneumovax (PPSV23) Pneumovax (PPSV23) Unknown Completed [facility] Prevnar 20 (PCV20) Prevnar 20 (PCV20) Unknown Completed [facility] Fluad (aIIV4) - SDS - 0.5mL Fluad (aIIV4) - SDS - 0.5mL Unknown Completed [facility] Pneumovax (PPSV23) Pneumovax (PPSV23) Unknown Completed [facility] Prevnar 20 (PCV20) Prevnar 20 (PCV20) Unknown Completed [facility] Fluad (aIIV4) - SDS - 0.5mL Fluad (aIIV4) - SDS - 0.5mL Unknown Completed [facility] Pneumovax (PPSV23) Pneumovax (PPSV23) Unknown Completed [facility] Vital Signs Vital Name Observation Time Observation Value Comments S ource height 2024-09-17 09:30:00 65 [in_i] Commo n [facility] weight 2024-09-17 09:30:00 166.6 [lb_av] Co [facility] temperature 2024-09-17 09:30:00 95.8 [degF] Com [facility] bmi 2024-09-17 09:30:00 27.72 kg/m2 Comm on [facility] oximetry 2024-09-17 09:30:00 96 % Commo n [facility] respiratory rate 2024-09-17 09:30:00 18 /min [facility] blood pressure systolic 2024-09-17 09:30:00 104 mm[Hg] [facility] blood pressure diastolic 2024-09-17 09:30:00 56 mm[Hg] [facility] height 2024-09-17 09:30:00 65 [in_i] Commo n [facility] weight 2024-09-17 09:30:00 166.6 [lb_av] Co [facility] temperature 2024-09-17 09:30:00 97.6 [degF] Com [facility] bmi 2024-09-17 09:30:00 27.72 kg/m2 Comm on [facility] oximetry 2024-09-17 09:30:00 96 % Commo n [facility] blood pressure systolic 2024-09-17 09:30:00 104 mm[Hg] [facility] blood pressure diastolic 2024-09-17 09:30:00 76 mm[Hg] [facility] height 2024-07-18 09:30:00 65 [in_i] Commo n [facility] weight 2024-07-18 09:30:00 160.4 [facility] 09:30:00 97.8 [degF] Com mon [facility] bmi 2024-07-18 09:30:00 26.69 kg/m2 Comm on [facility] blood pressure systolic 2024-07-18 09:30:00 120 mm[Hg] [facility] blood pressure diastolic 2024-07-18 09:30:00 76 mm[Hg] [facility] height 2024-07-11 11:00:00 65 [in_i] Commo n [facility] weight 2024-07-11 11:00:00 160.8 [lb_av] Co [facility] temperature 2024-07-11 11:00:00 97.2 [degF] Com [facility] bmi 2024-07-11 11:00:00 26.76 kg/m2 Comm on [facility] blood pressure systolic 2024-07-11 11:00:00 116 mm[Hg] [facility] blood pressure diastolic 2024-07-11 11:00:00 72 mm[Hg] [facility] height 2024-07-04 10:30:00 65 [in_i] Commo n [facility] weight 2024-07-04 10:30:00 161.8 [lb_av] [facility]-04 10:30:00 98.4 [degF] Com [facility] bmi 2024-07-04 10:30:00 26.92 kg/m2 Comm on [facility] blood pressure systolic 2024-07-04 10:30:00 130 mm[Hg] [facility] blood pressure diastolic 2024-07-04 10:30:00 70 mm[Hg] [facility] height 2024-07-02 15:15:00 65 [in_i] Commo n [facility] weight 2024-07-02 15:15:00 161.8 [lb_av] Co mmon [facility] temperature 2024-07-02 15:15:00 98.3 [degF] Com [facility] bmi 2024-07-02 15:15:00 26.92 kg/m2 Comm on [facility] oximetry 2024-07-02 15:15:00 94 % Commo n [facility] respiratory rate 2024-07-02 15:15:00 18 /min [facility] blood pressure systolic 2024-07-02 15:15:00 130 mm[Hg] [facility] blood pressure diastolic 2024-07-02 15:15:00 66 mm[Hg] [facility] height 2024-06-27 11:00:00 65 [in_i] Commo n [facility] weight 2024-06-27 11:00:00 162.3 [lb_av] Co m[facility] temperature 2024-06-27 11:00:00 97.6 [degF] Com [facility] bmi 2024-06-27 11:00:00 27.01 kg/m2 Comm on [facility] blood pressure systolic 2024-06-27 11:00:00 120 mm[Hg] [facility] blood pressure diastolic 2024-06-27 11:00:00 64 mm[Hg] [facility] height 2024-06-08 10:15:00 65 [in_i] Commo n [facility] weight 2024-06-08 10:15:00 162.6 [lb_av] Co [facility] temperature 2024-06-08 10:15:00 97.4 [degF] Com [facility] bmi 2024-06-08 10:15:00 27.06 kg/m2 Comm on [facility] blood pressure systolic 2024-06-08 10:15:00 118 mm[Hg] [facility] blood pressure diastolic 2024-06-08 10:15:00 62 mm[Hg] [facility] height 2024-06-05 13:40:00 65 [in_i] Commo n [facility] weight 2024-06-05 13:40:00 162.8 [lb_av] Co [facility] temperature 2024-06-05 13:40:00 97.2 [degF] Com [facility] bmi 2024-06-05 13:40:00 27.09 kg/m2 Comm on [facility] oximetry 2024-06-05 13:40:00 98 % Commo n [facility] respiratory rate 2024-06-05 13:40:00 18 /min [facility] blood pressure systolic 2024-06-05 13:40:00 117 mm[Hg] [facility] blood pressure diastolic 2024-06-05 13:40:00 60 mm[Hg] [facility] height 2024-05-10 10:00:00 65 [in_i] Commo n [facility] weight 2024-05-10 10:00:00 158.4 [lb_av] Co [facility] temperature 2024-05-10 10:00:00 97.0 [degF] Com [facility] bmi 2024-05-10 10:00:00 26.36 kg/m2 Comm on [facility] oximetry 2024-05-10 10:00:00 97 % Commo n [facility] respiratory rate 2024-05-10 10:00:00 18 /min [facility] blood pressure systolic 2024-05-10 10:00:00 117 mm[Hg] [facility] blood pressure diastolic 2024-05-10 10:00:00 58 mm[Hg] [facility] height 2024-04-30 10:40:00 65 [in_i] Commo n [facility] weight 2024-04-30 10:40:00 160.0 [lb_av] Co mmon [facility] temperature 2024-04-30 10:40:00 97.0 [degF] Com [facility] bmi 2024-04-30 10:40:00 26.62 kg/m2 Comm on [facility] oximetry 2024-04-30 10:40:00 97 % Commo n [facility] respiratory rate 2024-04-30 10:40:00 18 /min [facility] blood pressure systolic 2024-04-30 10:40:00 137 mm[Hg] [facility] blood pressure diastolic 2024-04-30 10:40:00 68 mm[Hg] [facility] height 2024-04-17 09:10:00 65 [in_i] Commo n [facility] weight 2024-04-17 09:10:00 160.2 [lb_av] Co mmon [facility] temperature 2024-04-17 09:10:00 96.4 [degF] Com [facility] bmi 2024-04-17 09:10:00 26.66 kg/m2 Comm on [facility] oximetry 2024-04-17 09:10:00 97 % Commo n [facility] blood pressure systolic 2024-04-17 09:10:00 122 mm[Hg] [facility] blood pressure diastolic 2024-04-17 09:10:00 56 mm[Hg] [facility] height 2024-04-17 09:10:00 65 [in_i] Commo n [facility] weight 2024-04-17 09:10:00 160.2 [lb_av] Co [facility] temperature 2024-04-17 09:10:00 96.4 [degF] Com [facility] bmi 2024-04-17 09:10:00 26.66 kg/m2 Comm on [facility] oximetry 2024-04-17 09:10:00 97 % Commo n [facility] blood pressure systolic 2024-04-17 09:10:00 122 mm[Hg] [facility] blood pressure diastolic 2024-04-17 09:10:00 56 [facility]Hg[facility] 2024-04-12 08:00:00 65 [in_i] Commo n [facility] weight 2024-04-12 08:00:00 158.0 [lb_av] Co [facility] temperature 2024-04-12 08:00:00 97.0 [degF] Com [facility] bmi 2024-04-12 08:00:00 26.29 kg/m2 Comm on [facility] oximetry 2024-04-12 08:00:00 98 % Commo n [facility] respiratory rate 2024-04-12 08:00:00 17 /min [facility] blood pressure systolic 2024-04-12 08:00:00 119 mm[Hg] [facility] blood pressure diastolic 2024-04-12 08:00:00 57 mm[Hg] [facility] height 2024-04-03 09:40:00 65 [in_i] Commo n [facility] weight 2024-04-03 09:40:00 160.0 [lb_av] Co on [facility] temperature 2024-04-03 09:40:00 97.0 [degF] Com [facility] bmi 2024-04-03 09:40:00 26.62 kg/m2 Comm on [facility] oximetry 2024-04-03 09:40:00 98 % Commo n [facility] respiratory rate 2024-04-03 09:40:00 18 /min [facility] blood pressure systolic 2024-04-03 09:40:00 124 mm[Hg] [facility] blood pressure diastolic 2024-04-03 09:40:00 60 mm[Hg] [facility] height 2024-03-08 10:15:00 65 [in_i] Commo n [facility] weight 2024-03-08 10:15:00 163.2 [lb_av] Co on [facility] temperature 2024-03-08 10:15:00 98.6 [degF] Com [facility] bmi 2024-03-08 10:15:00 27.15 kg/m2 Comm on [facility] oximetry 2024-03-08 10:15:00 99 % Commo n [facility] respiratory rate 2024-03-08 10:15:00 18 /min [facility] blood pressure systolic 2024-03-08 10:15:00 140 mm[Hg] [facility] blood pressure diastolic 2024-03-08 10:15:00 62 mm[Hg] [facility] height 2024-03-07 11:20:00 65 [in_i] Commo n [facility] weight 2024-03-07 11:20:00 162 [lb_av] Comm on [facility] temperature 2024-03-07 11:20:00 97 [degF] Comm on [facility] bmi 2024-03-07 11:20:00 26.96 kg/m2 Comm on [facility] oximetry 2024-03-07 11:20:00 98 % Commo n [facility] respiratory rate 2024-03-07 11:20:00 16 /min [facility] blood pressure systolic 2024-03-07 11:20:00 138 mm[Hg] [facility] blood pressure diastolic 2024-03-07 11:20:00 89 mm[Hg] [facility] height 2024-02-10 09:15:00 65 [in_i] Commo n [facility] weight 2024-02-10 09:15:00 161.4 [lb_av] Co [facility] temperature 2024-02-10 09:15:00 98.0 [degF] Com mon [facility] bmi 2024-02-10 09:15:00 26.86 kg/m2 Comm on [facility] oximetry 2024-02-10 09:15:00 96 % Commo n [facility] respiratory rate 2024-02-10 09:15:00 18 /min [facility] blood pressure systolic 2024-02-10 09:15:00 127 mm[Hg] [facility] blood pressure diastolic 2024-02-10 09:15:00 81 mm[Hg] [facility] height 2023-12-29 13:00:00 65 [in_i] Commo n [facility] weight 2023-12-29 13:00:00 166 [lb_av] Comm on [facility] temperature 2023-12-29 13:00:00 98.3 [degF] Com mon [facility] bmi 2023-12-29 13:00:00 27.62 kg/m2 Comm on [facility] blood pressure systolic 2023-12-29 13:00:00 120 mm[Hg] [facility] blood pressure diastolic 2023-12-29 13:00:00 71 mm[Hg] [facility] height 2023-12-22 10:15:00 65 [in_i] Commo n [facility] weight 2023-12-22 10:15:00 163.2 [lb_av] Co m[facility] temperature 2023-12-22 10:15:00 97.2 [degF] Com mon [facility] bmi 2023-12-22 10:15:00 27.15 kg/m2 Comm on [facility] oximetry 2023-12-22 10:15:00 96 % Commo n [facility] respiratory rate 2023-12-22 10:15:00 18 /min [facility] blood pressure systolic 2023-12-22 10:15:00 111 mm[Hg] [facility] blood pressure diastolic 2023-12-22 10:15:00 66 mm[Hg] [facility] blood pressure diastolic 2023-12-14 10:10:00 76 mm[Hg] [facility] height 2023-12-14 10:10:00 65 [in_i] Commo n [facility] weight 2023-12-14 10:10:00 161.0 [lb_av] Co m[facility] temperature 2023-12-14 10:10:00 98.5 [degF] Com [facility] bmi 2023-12-14 10:10:00 26.79 kg/m2 Comm on [facility] oximetry 2023-12-14 10:10:00 97 % Commo n [facility] respiratory rate 2023-12-14 10:10:00 18 /min [facility] blood pressure systolic 2023-12-14 10:10:00 120 mm[Hg] [facility] height 2023-12-07 13:45:00 65 [in_i] Commo n [facility] weight 2023-12-07 13:45:00 163 [lb_av] Comm on [facility] temperature 2023-12-07 13:45:00 98.6 [degF] Com mon [facility] bmi 2023-12-07 13:45:00 27.12 kg/m2 Comm on [facility] oximetry 2023-12-07 13:45:00 99 % Commo n [facility] respiratory rate 2023-12-07 13:45:00 18 /min [facility] blood pressure systolic 2023-12-07 13:45:00 136 mm[Hg] [facility] blood pressure diastolic 2023-12-07 13:45:00 78 mm[Hg] [facility] height 2023-11-15 08:00:00 65 [in_i] Commo n [facility] weight 2023-11-15 08:00:00 163.1 [lb_av] Co m[facility] temperature 2023-11-15 08:00:00 97.6 [degF] Com mon [facility] bmi 2023-11-15 08:00:00 27.14 kg/m2 Comm on [facility] oximetry 2023-11-15 08:00:00 99 % Commo n [facility] respiratory rate 2023-11-15 08:00:00 18 /min [facility] blood pressure systolic 2023-11-15 08:00:00 140 mm[Hg] [facility] blood pressure diastolic 2023-11-15 08:00:00 73 mm[Hg] [facility] height 2023-10-28 09:00:00 65 [in_i] Commo n [facility] weight 2023-10-28 09:00:00 163.4 [lb_av] Co m[facility] temperature 2023-10-28 09:00:00 97.5 [degF] Com [facility] bmi 2023-10-28 09:00:00 27.19 kg/m2 Comm on [facility] oximetry 2023-10-28 09:00:00 99 % Commo n [facility] respiratory rate 2023-10-28 09:00:00 18 /min [facility] blood pressure systolic 2023-10-28 09:00:00 140 mm[Hg] [facility] blood pressure diastolic 2023-10-28 09:00:00 69 mm[Hg] [facility] height 2023-10-24 15:30:00 65 [in_i] Commo n [facility] weight 2023-10-24 15:30:00 163.2 [lb_av] Co on [facility] temperature 2023-10-24 15:30:00 97.3 [degF] Com [facility] bmi 2023-10-24 15:30:00 27.15 kg/m2 Comm on [facility] oximetry 2023-10-24 15:30:00 98 % Commo n [facility] respiratory rate 2023-10-24 15:30:00 18 /min [facility] blood pressure systolic 2023-10-24 15:30:00 142 mm[Hg] [facility] blood pressure diastolic 2023-10-24 15:30:00 66 mm[Hg] [facility] height 2023-09-29 09:00:00 65 [in_i] Commo n [facility] weight 2023-09-29 09:00:00 162.4 [lb_av] Co [facility] temperature 2023-09-29 09:00:00 97.6 [degF] Com [facility] bmi 2023-09-29 09:00:00 27.02 kg/m2 Comm on [facility] oximetry 2023-09-29 09:00:00 99 % Commo n [facility] blood pressure systolic 2023-09-29 09:00:00 132 mm[Hg] [facility] blood pressure diastolic 2023-09-29 09:00:00 68 mm[Hg] [facility] height 2023-09-14 14:00:00 65 [in_i] Commo n [facility] weight 2023-09-14 14:00:00 165.4 [lb_av] Co [facility] temperature 2023-09-14 14:00:00 97.8 [degF] Com [facility] bmi 2023-09-14 14:00:00 27.52 kg/m2 Comm on [facility] oximetry 2023-09-14 14:00:00 98 % Commo n [facility] blood pressure systolic 2023-09-14 14:00:00 120 mm[Hg] [facility] blood pressure diastolic 2023-09-14 14:00:00 62 mm[Hg] [facility] height 2023-09-14 14:00:00 65 [in_i] Commo n [facility] weight 2023-09-14 14:00:00 165.4 [lb_av] Co [facility] temperature 2023-09-14 14:00:00 97.8 [degF] Com [facility] bmi 2023-09-14 14:00:00 27.52 kg/m2 Comm on [facility] oximetry 2023-09-14 14:00:00 98 % Commo n [facility] blood pressure systolic 2023-09-14 14:00:00 120 mm[Hg] [facility] blood pressure diastolic 2023-09-14 14:00:00 62 mm[Hg] [facility] height 2023-09-08 17:15:00 65 [in_i] Commo n [facility] weight 2023-09-08 17:15:00 162 [lb_av] Comm on [facility] temperature 2023-09-08 17:15:00 98.6 [degF] Com mon [facility] bmi 2023-09-08 17:15:00 26.96 kg/m2 Comm on [facility] oximetry 2023-09-08 17:15:00 99 % Commo n [facility] respiratory rate 2023-09-08 17:15:00 18 /min [facility] blood pressure systolic 2023-09-08 17:15:00 120 mm[Hg] [facility] blood pressure diastolic 2023-09-08 17:15:00 80 mm[Hg] [facility] height 2023-08-31 09:00:00 65 [in_i] Commo n [facility] weight 2023-08-31 09:00:00 163 [lb_av] Comm on [facility] temperature 2023-08-31 09:00:00 98.6 [degF] Com mon [facility] bmi 2023-08-31 09:00:00 27.12 kg/m2 Comm on [facility] height 2023-08-03 09:00:00 65 [in_i] Commo n [facility] weight 2023-08-03 09:00:00 163 [lb_av] Comm on [facility] temperature 2023-08-03 09:00:00 97.3 [degF] Com [facility] bmi 2023-08-03 09:00:00 27.12 kg/m2 Comm on [facility] oximetry 2023-08-03 09:00:00 96 % Commo n [facility] respiratory rate 2023-08-03 09:00:00 18 /min [facility] blood pressure systolic 2023-08-03 09:00:00 107 mm[Hg] [facility] blood pressure diastolic 2023-08-03 09:00:00 55 mm[Hg] [facility] height 2023-08-02 09:00:00 65 [in_i] Commo n [facility] weight 2023-08-02 09:00:00 163 [lb_av] Comm on [facility] temperature 2023-08-02 09:00:00 95.8 [degF] Com [facility] bmi 2023-08-02 09:00:00 27.12 kg/m2 Comm on [facility] oximetry 2023-08-02 09:00:00 98 % Commo n [facility] respiratory rate 2023-08-02 09:00:00 16 /min [facility] blood pressure systolic 2023-08-02 09:00:00 114 mm[Hg] [facility] blood pressure diastolic 2023-08-02 09:00:00 56 mm[Hg] [facility] height 2023-08-01 09:45:00 65 [in_i] Commo n [facility] weight 2023-08-01 09:45:00 165 [lb_av] Comm on [facility] temperature 2023-08-01 09:45:00 97.8 [degF] Com [facility] bmi 2023-08-01 09:45:00 27.45 kg/m2 Comm on [facility] blood pressure systolic 2023-08-01 09:45:00 120 mm[Hg] [facility] blood pressure diastolic 2023-08-01 09:45:00 78 mm[Hg] [facility] height 2023-07-27 09:15:00 65 [in_i] Commo n [facility] weight 2023-07-27 09:15:00 166.2 [lb_av] Co [facility] temperature 2023-07-27 09:15:00 97.2 [degF] Com mon [facility] bmi 2023-07-27 09:15:00 27.65 kg/m2 Comm on [facility] oximetry 2023-07-27 09:15:00 95 % Commo n [facility] respiratory rate 2023-07-27 09:15:00 17 /min [facility] blood pressure systolic 2023-07-27 09:15:00 101 mm[Hg] [facility] blood pressure diastolic 2023-07-27 09:15:00 61 mm[Hg] [facility] height 2023-07-25 10:15:00 65 [in_i] Commo n [facility] weight 2023-07-25 10:15:00 164 [lb_av] Comm on [facility] temperature 2023-07-25 10:15:00 97.6 [degF] Com [facility] bmi 2023-07-25 10:15:00 27.29 kg/m2 Comm on [facility] blood pressure systolic 2023-07-25 10:15:00 122 mm[Hg] [facility] blood pressure diastolic 2023-07-25 10:15:00 70 mm[Hg] [facility] height 2023-07-18 10:15:00 65 [in_i] Commo n [facility] weight 2023-07-18 10:15:00 163 [lb_av] Comm on [facility] temperature 2023-07-18 10:15:00 98.1 [degF] Com [facility] bmi 2023-07-18 10:15:00 27.12 kg/m2 Comm on [facility] blood pressure systolic 2023-07-18 10:15:00 120 mm[Hg] [facility] blood pressure diastolic 2023-07-18 10:15:00 70 mm[Hg] [facility] height 2023-05-25 10:15:00 65 [in_i] Commo n [facility] weight 2023-05-25 10:15:00 164 [lb_av] Comm on [facility] temperature 2023-05-25 10:15:00 97.8 [degF] Com [facility] bmi 2023-05-25 10:15:00 27.29 kg/m2 Comm on [facility] blood pressure systolic 2023-05-25 10:15:00 122 mm[Hg] [facility] blood pressure diastolic 2023-05-25 10:15:00 68 mm[Hg] [facility] height 2023-05-24 10:30:00 65 [in_i] Commo n [facility] weight 2023-05-24 10:30:00 163.5 [lb_av] Co [facility] temperature 2023-05-24 10:30:00 97.7 [degF] Com [facility] bmi 2023-05-24 10:30:00 27.2 kg/m2 Commo n [facility] oximetry 2023-05-24 10:30:00 96 % Commo n [facility] respiratory rate 2023-05-24 10:30:00 17 /min [facility] blood pressure systolic 2023-05-24 10:30:00 116 mm[Hg] [facility] blood pressure diastolic 2023-05-24 10:30:00 69 mm[Hg] [facility] height 2023-05-16 13:40:00 65 [in_i] Commo n [facility] weight 2023-05-16 13:40:00 163 [lb_av] Comm on [facility] temperature 2023-05-16 13:40:00 97.8 [degF] Com mon [facility] bmi 2023-05-16 13:40:00 27.12 kg/m2 Comm on [facility] oximetry 2023-05-16 13:40:00 8 % Commo n [facility] respiratory rate 2023-05-16 13:40:00 24 /min [facility] blood pressure systolic 2023-05-16 13:40:00 120 mm[Hg] [facility] blood pressure diastolic 2023-05-16 13:40:00 58 mm[Hg] [facility] height 2023-04-05 11:00:00 65 [in_i] Commo n [facility] weight 2023-04-05 11:00:00 160 [lb_av] Comm on [facility] temperature 2023-04-05 11:00:00 98.6 [degF] Com mon [facility] bmi 2023-04-05 11:00:00 26.62 kg/m2 Comm on [facility] oximetry 2023-04-05 11:00:00 99 % Commo n [facility] respiratory rate 2023-04-05 11:00:00 18 /min [facility] blood pressure systolic 2023-04-05 11:00:00 132 mm[Hg] [facility] blood pressure diastolic 2023-04-05 11:00:00 68 mm[Hg] [facility] height 2023-03-31 15:00:00 65 [in_i] Commo n [facility] weight 2023-03-31 15:00:00 160.6 [lb_av] Co mmon [facility] temperature 2023-03-31 15:00:00 97.9 [degF] Com mon [facility] bmi 2023-03-31 15:00:00 26.72 kg/m2 Comm on [facility] oximetry 2023-03-31 15:00:00 97 % Commo n [facility] respiratory rate 2023-03-31 15:00:00 17 /min [facility] blood pressure systolic 2023-03-31 15:00:00 140 mm[Hg] [facility] blood pressure diastolic 2023-03-31 15:00:00 62 mm[Hg] [facility] height 2023-03-24 09:20:00 65 [in_i] Commo n [facility] weight 2023-03-24 09:20:00 162 [lb_av] Comm on [facility] bmi 2023-03-24 09:20:00 26.96 kg/m2 Comm on [facility] height 2023-03-15 09:30:00 65 [in_i] Commo n [facility] weight 2023-03-15 09:30:00 161.6 [lb_av] Co [facility] temperature 2023-03-15 09:30:00 97.9 [degF] Com mon [facility] bmi 2023-03-15 09:30:00 26.89 kg/m2 Comm on [facility] oximetry 2023-03-15 09:30:00 97 % Commo n [facility] respiratory rate 2023-03-15 09:30:00 17 /min [facility] blood pressure systolic 2023-03-15 09:30:00 101 mm[Hg] [facility] blood pressure diastolic 2023-03-15 09:30:00 58 mm[Hg] [facility] height 2023-02-23 11:00:00 65 [in_i] Commo n [facility] weight 2023-02-23 11:00:00 165 [lb_av] Comm on [facility] temperature 2023-02-23 11:00:00 98.6 [degF] Com [facility] bmi 2023-02-23 11:00:00 27.45 kg/m2 [facility] [facility]23-[facility]-23 11:00:00 99 % [facility] respiratory rate 2023-02-23 11:00:00 18 /min Common [facility] blood pressure systolic 2023-02-23 11:00:00 136 mm[Hg] Common [facility] blood pressure diastolic 2023-02-23 11:00:00 80 mm[Hg] [facility] height 2023-02-08 11:00:00 65 [in_i] Commo n [facility] weight 2023-02-08 11:00:00 165 [lb_av] Comm on [facility] temperature 2023-02-08 11:00:00 98.6 [degF] Com mon [facility] bmi 2023-02-08 11:00:00 27.45 kg/m2 Comm on [facility] oximetry 2023-02-08 11:00:00 99 % Com[facility] respiratory rate 2023-02-08 11:00:00 18 /min [facility] blood pressure systolic 2023-02-08 11:00:00 138 mm[Hg] [facility] blood pressure diastolic 2023-02-08 11:00:00 61 mm[Hg] Common [facility] height 2022-12-23 15:30:00 65 [in_i] Commo n [facility] weight 2022-12-23 15:30:00 165 [lb_av] Comm on [facility] temperature 2022-12-23 15:30:00 97.6 [degF] Com [facility] bmi 2022-12-23 15:30:00 27.45 kg/m2 Comm on [facility] oximetry 2022-12-23 15:30:00 99 % Commo n [facility] respiratory rate 2022-12-23 15:30:00 18 /min [facility] blood pressure systolic 2022-12-23 15:30:00 141 mm[Hg] [facility] blood pressure diastolic 2022-12-23 15:30:00 61 mm[Hg] Common [facility] height 2022-12-20 10:00:00 65 [in_i] Commo n [facility] weight 2022-12-20 10:00:00 165 [lb_av] Comm on [facility] temperature 2022-12-20 10:00:00 97.6 [degF] Com [facility] bmi 2022-12-20 10:00:00 27.45 kg/m2 Comm on [facility] blood pressure systolic 2022-12-20 10:00:00 131 mm[Hg] [facility] blood pressure diastolic 2022-12-20 10:00:00 71 mm[Hg] Common [facility] height 2022-12-10 10:00:00 65 [in_i] Commo n [facility] weight 2022-12-10 10:00:00 166 [lb_av] Comm on [facility] temperature 2022-12-10 10:00:00 97.4 [degF] Com [facility] bmi 2022-12-10 10:00:00 27.62 kg/m2 Comm on [facility] blood pressure systolic 2022-12-10 10:00:00 130 mm[Hg] [facility] blood pressure diastolic 2022-12-10 10:00:00 78 mm[Hg] [facility] height 2022-12-02 10:00:00 65 [in_i] Commo n [facility] weight 2022-12-02 10:00:00 165 [lb_av] Comm on [facility] temperature 2022-12-02 10:00:00 98.0 [degF] Com mon [facility] bmi 2022-12-02 10:00:00 27.45 kg/m2 Comm on [facility] blood pressure systolic 2022-12-02 10:00:00 128 mm[Hg] [facility] blood pressure diastolic 2022-12-02 10:00:00 74 mm[Hg] Common [facility] height 2022-11-04 14:30:00 65 [in_i] Commo n [facility] weight 2022-11-04 14:30:00 165 [lb_av] Comm on [facility] temperature 2022-11-04 14:30:00 97.6 [degF] Com [facility] bmi 2022-11-04 14:30:00 27.45 kg/m2 Comm on [facility] oximetry 2022-11-04 14:30:00 98 % Commo [facility] respiratory rate 2022-11-04 14:30:00 16 /min [facility] blood pressure systolic 2022-11-04 14:30:00 130 mm[Hg] [facility] blood pressure diastolic 2022-11-04 14:30:00 62 mm[Hg] [facility] height 2022-10-06 14:40:00 65 [in_i] Commo n [facility] weight 2022-10-06 14:40:00 163.6 [lb_av] Co [facility] temperature 2022-10-06 14:40:00 97.0 [degF] Com mon [facility] bmi 2022-10-06 14:40:00 27.22 kg/m2 Comm on [facility] oximetry 2022-10-06 14:40:00 98 % Com[facility] n [facility] respiratory rate 2022-10-06 14:40:00 18 /min [facility] blood pressure systolic 2022-10-06 14:40:00 121 mm[Hg] [facility] blood pressure diastolic 2022-10-06 14:40:00 68 mm[Hg] [facility] height 2022-09-15 09:20:00 65 [in_i] Commo n [facility] weight 2022-09-15 09:20:00 167.1 [lb_av] Co [facility] temperature 2022-09-15 09:20:00 97.1 [degF] Com [facility] bmi 2022-09-15 09:20:00 27.8 kg/m2 Com[facility] n [facility] oximetry 2022-09-15 09:20:00 99 % Com[facility] n [facility] respiratory rate 2022-09-15 09:20:00 18 /min [facility] blood pressure systolic 2022-09-15 09:20:00 119 mm[Hg] [facility] blood pressure diastolic 2022-09-15 09:20:00 68 mm[Hg] [facility] height 2022-09-15 09:30:00 65 [in_i] Commo n [facility] weight 2022-09-15 09:30:00 167.1 [lb_av] [facility] temperature 2022-09-15 09:30:00 97.1 [degF] Com [facility] bmi 2022-09-15 09:30:00 27.8 kg/m2 Com[facility] oximetry 2022-09-15 09:30:00 99 % Com[facility] n [facility] respiratory rate 2022-09-15 09:30:00 18 /min Common [facility] blood pressure systolic 2022-09-15 09:30:00 119 mm[Hg] [facility] blood pressure diastolic 2022-09-15 09:30:00 68 mm[Hg] [facility] height 2022-08-09 08:15:00 65 [in_i] Commo n [facility] weight 2022-08-09 08:15:00 167 [lb_av] Comm on [facility] temperature 2022-08-09 08:15:00 98.0 [degF] Com [facility] bmi 2022-08-09 08:15:00 27.79 kg/m2 Comm on [facility] blood pressure systolic 2022-08-09 08:15:00 128 mm[Hg] [facility] blood pressure diastolic 2022-08-09 08:15:00 80 mm[Hg] [facility] height 2022-07-14 10:00:00 65 [in_i] Commo n [facility] weight 2022-07-14 10:00:00 167 [lb_av] Comm on [facility] temperature 2022-07-14 10:00:00 97.6 [degF] Com [facility] bmi 2022-07-14 10:00:00 27.79 kg/m2 Comm on [facility] blood pressure systolic 2022-07-14 10:00:00 130 mm[Hg] [facility] blood pressure diastolic 2022-07-14 10:00:00 74 mm[Hg] [facility] height 2022-07-12 09:30:00 65 [in_i] Commo n [facility] weight 2022-07-12 09:30:00 167 [lb_av] Comm on [facility] temperature 2022-07-12 09:30:00 98.3 [degF] Com [facility] bmi 2022-07-12 09:30:00 27.79 kg/m2 Comm on [facility] blood pressure systolic 2022-07-12 09:30:00 132 mm[Hg] [facility] blood pressure diastolic 2022-07-12 09:30:00 72 mm[Hg] [facility] height 2022-07-02 09:30:00 65 [in_i] Commo n [facility] weight 2022-07-02 09:30:00 168 [lb_av] Comm on [facility] temperature 2022-07-02 09:30:00 97.3 [degF] Com [facility] bmi 2022-07-02 09:30:00 27.95 kg/m2 Comm on [facility] blood pressure systolic 2022-07-02 09:30:00 130 mm[Hg] [facility] blood pressure diastolic 2022-07-02 09:30:00 70 mm[Hg] [facility] height 2022-06-14 09:00:00 65 [in_i] Commo n [facility] weight 2022-06-14 09:00:00 168 [lb_av] Comm on [facility] temperature 2022-06-14 09:00:00 97.2 [degF] Com [facility] bmi 2022-06-14 09:00:00 27.95 kg/m2 Comm on [facility] blood pressure systolic 2022-06-14 09:00:00 128 mm[Hg] [facility] blood pressure diastolic 2022-06-14 09:00:00 70 mm[Hg] [facility] height 2022-06-10 10:00:00 65 [in_i] Commo n [facility] weight 2022-06-10 10:00:00 168.4 [lb_av] Co [facility] temperature 2022-06-10 10:00:00 97.7 [degF] Com mon [facility] bmi 2022-06-10 10:00:00 28.02 kg/m2 Comm on [facility] respiratory rate 2022-06-10 10:00:00 18 /min [facility] blood pressure systolic 2022-06-10 10:00:00 123 mm[Hg] [facility] blood pressure diastolic 2022-06-10 10:00:00 65 mm[Hg] Common [facility] height 2022-05-17 09:45:00 65 [in_i] Commo n [facility] weight 2022-05-17 09:45:00 166 [lb_av] Comm on [facility] temperature 2022-05-17 09:45:00 97.4 [degF] Com [facility] bmi 2022-05-17 09:45:00 27.62 kg/m2 Comm on [facility] blood pressure systolic 2022-05-17 09:45:00 124 mm[Hg] [facility] blood pressure diastolic 2022-05-17 09:45:00 70 mm[Hg] [facility] height 2022-04-28 14:45:00 65 [in_i] Commo n [facility] weight 2022-04-28 14:45:00 166.9 [lb_av] Co [facility] temperature 2022-04-28 14:45:00 97.3 [degF] Com [facility] bmi 2022-04-28 14:45:00 27.77 kg/m2 Comm on [facility] blood pressure systolic 2022-04-28 14:45:00 122 mm[Hg] [facility] blood pressure diastolic 2022-04-28 14:45:00 61 mm[Hg] [facility] height 2022-04-07 14:30:00 65 [in_i] Commo n [facility] weight 2022-04-07 14:30:00 166.9 [lb_av] Co [facility] temperature 2022-04-07 14:30:00 98.0 [degF] Com mon [facility] bmi 2022-04-07 14:30:00 27.77 kg/m2 Comm on [facility] blood pressure systolic 2022-04-07 14:30:00 118 mm[Hg] [facility] blood pressure diastolic 2022-04-07 14:30:00 60 mm[Hg] [facility] height 2022-04-05 13:20:00 65 [in_i] Commo n [facility] weight 2022-04-05 13:20:00 166.9 [lb_av] Co [facility] temperature 2022-04-05 13:20:00 97.3 [degF] Com [facility] bmi 2022-04-05 13:20:00 27.77 kg/m2 Comm on [facility] oximetry 2022-04-05 13:20:00 99 % Commo n [facility] respiratory rate 2022-04-05 13:20:00 16 /min [facility] blood pressure systolic 2022-04-05 13:20:00 118 mm[Hg] [facility] blood pressure diastolic 2022-04-05 13:20:00 60 mm[Hg] [facility] height 2022-03-17 11:00:00 65 [in_i] Commo n [facility] weight 2022-03-17 11:00:00 165 [lb_av] Comm on [facility] temperature 2022-03-17 11:00:00 98.2 [degF] Com mon [facility] bmi 2022-03-17 11:00:00 27.45 kg/m2 Comm on [facility] oximetry 2022-03-17 11:00:00 98 % Commo n [facility] respiratory rate 2022-03-17 11:00:00 16 /min [facility] blood pressure systolic 2022-03-17 11:00:00 138 mm[Hg] [facility] blood pressure diastolic 2022-03-17 11:00:00 63 mm[Hg] [facility] height 2022-03-10 08:00:00 65 [in_i] Commo n [facility] weight 2022-03-10 08:00:00 166.4 [lb_av] Co [facility] temperature 2022-03-10 08:00:00 97.7 [degF] Com mon [facility] bmi 2022-03-10 08:00:00 27.69 kg/m2 Comm on [facility] oximetry 2022-03-10 08:00:00 99 % Commo n [facility] respiratory rate 2022-03-10 08:00:00 18 /min [facility] blood pressure systolic 2022-03-10 08:00:00 110 mm[Hg] [facility] blood pressure diastolic 2022-03-10 08:00:00 59 mm[Hg] [facility] height 2022-02-24 09:00:00 66 [in_i] Commo n [facility] weight 2022-02-24 09:00:00 165 [lb_av] Comm on [facility] bmi 2022-02-24 09:00:00 26.63 kg/m2 Comm on [facility] blood pressure systolic 2022-02-24 09:00:00 110 mm[Hg] [facility] blood pressure diastolic 2022-02-24 09:00:00 70 mm[Hg] [facility] height 2022-02-15 11:00:00 66 [in_i] Commo n [facility] weight 2022-02-15 11:00:00 165 [lb_av] Comm on [facility] bmi 2022-02-15 11:00:00 26.63 kg/m2 Comm on [facility] blood pressure systolic 2022-02-15 11:00:00 108 mm[Hg] [facility] blood pressure diastolic 2022-02-15 11:00:00 70 mm[Hg] [facility] height 2022-02-08 09:15:00 66 [in_i] Commo n [facility] weight 2022-02-08 09:15:00 165.1 [lb_av] Co on [facility] bmi 2022-02-08 09:15:00 26.64 kg/m2 Comm on [facility] blood pressure systolic 2022-02-08 09:15:00 107 mm[Hg] [facility] blood pressure diastolic 2022-02-08 09:15:00 67 mm[Hg] [facility] height 2021-12-22 10:00:00 66 [in_i] Commo n [facility] weight 2021-12-22 10:00:00 165.2 [lb_av] Co [facility] temperature 2021-12-22 10:00:00 96.7 [degF] Com mon [facility] bmi 2021-12-22 10:00:00 26.66 kg/m2 Comm on [facility] oximetry 2021-12-22 10:00:00 98 % Commo n [facility] respiratory rate 2021-12-22 10:00:00 16 /min [facility] blood pressure systolic 2021-12-22 10:00:00 136 mm[Hg] [facility] blood pressure diastolic 2021-12-22 10:00:00 64 mm[Hg] [facility] height 2021-12-07 09:00:00 66 [in_i] Commo n [facility] weight 2021-12-07 09:00:00 164 [lb_av] Comm on [facility] bmi 2021-12-07 09:00:00 26.47 kg/m2 Comm on [facility] blood pressure systolic 2021-12-07 09:00:00 118 mm[Hg] [facility] blood pressure diastolic 2021-12-07 09:00:00 70 mm[Hg] [facility] height 2021-11-19 08:30:00 66 [in_i] Commo n [facility] weight 2021-11-19 08:30:00 164.6 [lb_av] Co mmon [facility] bmi 2021-11-19 08:30:00 26.56 kg/m2 Comm on [facility] blood pressure systolic 2021-11-19 08:30:00 112 mm[Hg] [facility] blood pressure diastolic 2021-11-19 08:30:00 62 mm[Hg] Common [facility] height 2021-11-13 11:15:00 66 [in_i] Commo n [facility] weight 2021-11-13 11:15:00 165 [lb_av] Comm on [facility] temperature 2021-11-13 11:15:00 98.2 [degF] Com mon [facility] bmi 2021-11-13 11:15:00 26.63 kg/m2 Comm on [facility] oximetry 2021-11-13 11:15:00 99 % Commo n [facility] respiratory rate 2021-11-13 11:15:00 16 /min [facility] blood pressure systolic 2021-11-13 11:15:00 132 mm[Hg] [facility] blood pressure diastolic 2021-11-13 11:15:00 60 mm[Hg] [facility] height 2021-09-10 08:50:00 66 [in_i] Commo n [facility] weight 2021-09-10 08:50:00 168.2 [lb_av] Co [facility] temperature 2021-09-10 08:50:00 97.3 [degF] Com [facility] bmi 2021-09-10 08:50:00 27.15 kg/m2 Comm on [facility] oximetry 2021-09-10 08:50:00 98 % Commo n [facility] respiratory rate 2021-09-10 08:50:00 18 /min [facility] blood pressure systolic 2021-09-10 08:50:00 144 mm[Hg] [facility] blood pressure diastolic 2021-09-10 08:50:00 67 mm[Hg] [facility] height 2021-09-10 09:10:00 66 [in_i] Commo n [facility] weight 2021-09-10 09:10:00 168.2 [lb_av] Co m[facility] temperature 2021-09-10 09:10:00 97.3 [degF] Com mon [facility] bmi 2021-09-10 09:10:00 27.15 kg/m2 Comm on [facility] oximetry 2021-09-10 09:10:00 98 % Commo n [facility] respiratory rate 2021-09-10 09:10:00 18 /min [facility] blood pressure systolic 2021-09-10 09:10:00 144 mm[Hg] [facility] blood pressure diastolic 2021-09-10 09:10:00 67 mm[Hg] [facility] height 2021-09-04 11:30:00 66 [in_i] Commo n [facility] weight 2021-09-04 11:30:00 165 [lb_av] Comm on [facility] temperature 2021-09-04 11:30:00 97.3 [degF] Com mon [facility] bmi 2021-09-04 11:30:00 26.63 kg/m2 Comm on [facility] oximetry 2021-09-04 11:30:00 98 % Commo n [facility] respiratory rate 2021-09-04 11:30:00 18 /min [facility] blood pressure systolic 2021-09-04 11:30:00 131 mm[Hg] [facility] blood pressure diastolic 2021-09-04 11:30:00 61 mm[Hg] Common [facility] height 2021-08-24 16:30:00 66 [in_i] Commo n [facility] weight 2021-08-24 16:30:00 167.8 [lb_av] Co m[facility] temperature 2021-08-24 16:30:00 97.7 [degF] Com [facility] bmi 2021-08-24 16:30:00 27.08 kg/m2 Comm on [facility] oximetry 2021-08-24 16:30:00 95 % Commo n [facility] respiratory rate 2021-08-24 16:30:00 18 /min [facility] blood pressure systolic 2021-08-24 16:30:00 146 mm[Hg] [facility] blood pressure diastolic 2021-08-24 16:30:00 69 mm[Hg] Common [facility] height 2021-06-26 09:40:00 66 [in_i] Commo n [facility] weight 2021-06-26 09:40:00 162.8 [lb_av] Co mmon [facility] temperature 2021-06-26 09:40:00 97.3 [degF] Com mon [facility] bmi 2021-06-26 09:40:00 26.27 kg/m2 Comm on [facility] oximetry 2021-06-26 09:40:00 96 % Commo n [facility] blood pressure systolic 2021-06-26 09:40:00 123 mm[Hg] [facility] blood pressure diastolic 2021-06-26 09:40:00 62 mm[Hg] [facility] Respiratory Rate 2024-11-29 13:05:00 Marshall Briseno BP Systolic 2024-11-29 13:05:00 120 mm[Hg] Nacho Briseno BP Diastolic 2024-11-29 13:05:00 72 mm[Hg] Kwesi Briseno Weight Measured 2024-11-29 13:05:00 164.20 pounds Marshall Briseno Height Measured 2024-11-29 13:05:00 66.00 inches Marshall Briseno Body Temperature 2024-11-29 13:05:00 97.40 degrees Marshall Briseno Heart Rate 2024-11-29 13:05:00 69.00 /min Yuki Steele Finn Systolic (mm Hg) 2023-06-10 15:53:00 [facility] 2023-06-10 15:53:00 [facility] Heart Rate 2023-06-10 15:53:00 [facility] Height 2023-06-10 15:53:00 5 [ft_i] [facility] Weight 2023-06-10 15:53:00 [facility] BMI Calculated 2023-06-10 15:53:00 [facility] Systolic (mm Hg) 2023-02-04 14:51:00 [facility] Diastolic (mm Hg) 2023-02-04 14:51:00 [facility] Heart Rate 2023-02-04 14:51:00 [facility] Height 2023-02-04 14:51:00 5 [ft_i] [facility] Weight 2023-02-04 14:51:00 [facility] BMI Calculated 2023-02-04 14:51:00 [facility] Systolic (mm Hg) 2022-12-09 16:25:00 [facility] Diastolic (mm Hg) 2022-12-09 16:25:00 [facility] Heart Rate 2022-12-09 16:25:00 [facility] Height 2022-12-09 16:25:00 5 [ft_i] [facility] Weight 2022-12-09 16:25:00 [facility] BMI Calculated 2022-12-09 16:25:00 [facility] Systolic (mm Hg) 2022-10-28 19:19:00 [facility] Diastolic (mm Hg) 2022-10-28 19:19:00 [facility] Heart Rate 2022-10-28 19:19:00 [facility] Height 2022-10-28 19:19:00 5 [ft_i] [facility] Weight 2022-10-28 19:19:00 [facility] BMI Calculated 2022-10-28 19:19:00 [facility] Procedures Procedure Date / Time Performed Performing Clinicia n Source PVR 2024-07-02 00:00:00 [facility] P[facility] 2024-02-10 00:00:00 [facility] PVR 2023-12-22 00:00:00 [facility] PVR 2023-11-15 00:00:00 [facility] PVR 2023-10-28 00:00:00 [facility] PVR 2023-08-31 00:00:00 [facility] PVR 2023-08-01 00:00:00 [facility] PVR 2023-03-31 00:00:00 [facility] PVR 2022-12-23 00:00:00 [facility] Encounters Start Date/Time End Date/Time Encounter Type Admission Type Attending Clinicians Care Facility Care Department Encounter ID Source 2024-06-05 09:57:00 Outpatient Flores, Ari STLMLC STLMLC [id number] [facility] 2024-04-30 09:34:00 Outpatient Flores, Ari STLMLC STLMLC [id number] [facility] 2024-04-16 10:09:00 Outpatient Flores, Ari STLMLC STLMLC [id number] [facility] 2024-04-03 08:31:00 Outpatient Flores, Ari STLMLC STLMLC [id number] [facility] 2024-03-07 09:44:00 Outpatient Flores, Ari STLMLC STLMLC [id number] [facility] 2023-12-30 08:08:00 Outpatient Flores, Ari STLMLC STLMLC [id number] [facility] 2023-12-07 10:03:00 Outpatient Flores, Ari STLMLC STLMLC [id number] [facility] 2023-08-03 09:06:00 Outpatient Flores, Ari STLMLC STLMLC [id number] [facility] 2023-08-01 16:31:00 Outpatient Flores, Ari STLMLC STLMLC [id number] [facility] 2023-07-28 11:09:00 Outpatient Flores, Ari STLMLC STLMLC [id number] [facility] 2023-07-25 10:20:00 Outpatient Flores, Ari STLMLC STLMLC [id number] [facility] 2023-05-25 13:22:00 Outpatient Flores, Ari STLMLC STLMLC [id number] [facility] 2023-05-23 14:14:00 Outpatient Flores, Ari STLMLC STLMLC [id number] [facility] 2023-03-23 16:40:00 Outpatient Flores, Ari STLMLC STLMLC [id number] [facility] 2023-03-11 10:30:00 Outpatient Flores, Ari STLMLC STLMLC [id number] [facility] 2022-10-04 09:26:00 Outpatient Flores, Ari STLMLC STLMLC [id number] [facility] 2022-06-15 16:26:00 Outpatient Flores, Ari STLMLC STLMLC [id number] [facility] 2022-06-01 10:35:01 Outpatient Flores, Ari STLMLC STLMLC [id number] [facility] 2022-04-08 10:53:00 Outpatient Flores, Ari STLMLC STLMLC [id number] [facility] 2022-03-01 09:02:00 Outpatient Flores, Ari STLMLC STLMLC [id number] [facility] 2022-02-15 10:50:01 Outpatient Flores, Ari STLMLC STLMLC [id number] [facility] 2021-11-18 08:43:01 Outpatient Flores, Ari STLMLC STLMLC [id number] [facility] 2021-11-16 11:47:00 Outpatient Flores, Ari STLMLC STLMLC [id number] [facility] 2021-11-12 14:19:00 Outpatient Flores, Ari STLMLC STLMLC [id number] [facility] 2021-09-16 14:30:48 Outpatient Flores, Ari STLMLC STLMLC [id number] [facility] 2021-09-16 14:08:53 Outpatient Flores, Ari STLMLC STLMLC [id number] [facility] 2021-09-16 13:51:26 Outpatient Flores, Ari STLMLC STLMLC [id number] [facility] 2021-09-16 13:50:30 Outpatient FloresTadh STLMLC STLMLC [id number] [facility] 2021-09-16 13:49:26 Outpatient zzzTello, Jammie STLMLC STLMLC [id number] [facility] 2021-09-16 12:45:44 Outpatient zloryTello, Jammie STLMLC STLMLC [id number] [facility] 2021-09-16 12:43:09 Outpatient QuentinlloKathies STLMLC STLMLC [id number] [facility] 2024-12-05 00:00:00 2024-12-05 00:00:00 (TEL) STLMLC STLMLC [id number] [facility] 2024-11-29 13:03:37 2024-11-29 13:03:37 Outpatient [facility] [id number] Marshall Briseno 2024-11-29 00:00:00 2024-11-29 00:00:00 Outpatient Visit [facility] [id number] Marshall Briseno 2024-11-28 00:00:00 2024-11-28 00:00:00 (TEL) STLMLC STLMLC [id number] [facility] 2024-11-12 00:00:00 2024-11-12 00:00:00 (TEL) STLMLC STLMLC [id number] [facility] 2024-09-17 00:00:00 2024-09-17 00:00:00 OFFICE VISIT ESTAB PT LEVEL 4 STLMLC STLMLC [id number] [facility] 2024-09-17 00:00:00 2024-09-17 00:00:00 SUB ANNUAL [facility] WELLNESS VISIT STLMLC STLMLC [id number] [facility] 2024-09-17 00:00:00 2024-09-17 00:00:00 (TEL) STLMLC STLMLC [id number] [facility] 2024-08-07 00:00:00 2024-08-07 00:00:00 (TEL) STLMLC STLMLC [id number] [facility] 2024-07-18 00:00:00 2024-07-18 00:00:00 (IN/ASP) INJ ASP STLMLC STLMLC [id number] [facility] 2024-07-11 00:00:00 2024-07-11 00:00:00 (IN/ASP) INJ ASP STLMLC STLMLC [id number] [facility] 2024-07-06 00:00:00 2024-07-06 00:00:00 (TEL) STLMLC STLMLC [id number] [facility] 2024-07-06 00:00:00 2024-07-06 00:00:00 (TEL) STLMLC STLMLC [id number] [facility] 2024-07-04 00:00:00 2024-07-04 00:00:00 (IN/ASP) INJ ASP STLMLC STLMLC [id number] [facility] 2024-07-03 00:00:00 2024-07-03 00:00:00 (TEL) STLMLC STLMLC [id number] [facility] 2024-07-02 00:00:00 2024-07-02 00:00:00 OFFICE VISIT ESTAB PT LEVEL 3 STLMLC STLMLC [id number] [facility] 2024-06-27 00:00:00 2024-06-27 00:00:00 (ESTPT) Establishe d Patient STLMLC STLMLC [id number] [facility] 2024-06-08 00:00:00 2024-06-08 00:00:00 (TEL) STLMLC STLMLC [id number] [facility] 2024-06-08 00:00:00 2024-06-08 00:00:00 (F/U) Follow Up Visit STLMLC STLMLC [id number] [facility] 2024-06-07 00:00:00 2024-06-07 00:00:00 (TEL) STLMLC STLMLC [id number] [facility] 2024-06-05 00:00:00 2024-06-05 00:00:00 OFFICE VISIT ESTAB PT LEVEL 3 STLMLC STLMLC [id number] [facility] 2024-05-10 00:00:00 2024-05-10 00:00:00 (TEL) STLMLC STLMLC [id number] [facility] 2024-05-10 00:00:00 2024-05-10 00:00:00 (TEL) STLMLC STLMLC [id number] [facility] 2024-05-10 00:00:00 2024-05-10 00:00:00 OFFICE VISIT ESTAB PT LEVEL 4 STLMLC STLMLC [id number] [facility] 2024-04-30 00:00:00 2024-04-30 00:00:00 OFFICE VISIT ESTAB PT LEVEL 3 STLMLC STLMLC [id number] [facility] 2024-04-30 00:00:00 2024-04-30 00:00:00 (TEL) STLMLC STLMLC [id number] [facility] 2024-04-17 00:00:00 2024-04-17 00:00:00 OFFICE VISIT ESTAB PT LEVEL 4 STLMLC STLMLC [id number] [facility] 2024-04-12 00:00:00 2024-04-12 00:00:00 (TEL) STLMLC STLMLC [id number] [facility] 2024-04-12 00:00:00 2024-04-12 00:00:00 OFFICE VISIT ESTAB PT LEVEL 4 STLMLC STLMLC [id number] [facility] 2024-04-10 00:00:00 2024-04-10 00:00:00 (TEL) STLMLC STLMLC [id number] [facility] 2024-04-03 00:00:00 2024-04-03 00:00:00 (TEL) STLMLC STLMLC [id number] [facility] 2024-04-03 00:00:00 2024-04-03 00:00:00 OFFICE VISIT ESTAB PT LEVEL 3 STLMLC STLMLC [id number] [facility] 2024-03-11 00:00:00 2024-03-11 00:00:00 (TEL) STLMLC STLMLC [id number] [facility] 2024-03-08 00:00:00 2024-03-08 00:00:00 OFFICE VISIT ESTAB PT LEVEL 3 STLMLC STLMLC [id number] [facility] 2024-03-07 00:00:00 2024-03-07 00:00:00 (TEL) STLMLC STLMLC [id number] [facility] 2024-03-07 00:00:00 2024-03-07 00:00:00 (TEL) STLMLC STLMLC [id number] [facility] 2024-03-07 00:00:00 2024-03-07 00:00:00 OFFICE VISIT ESTAB PT LEVEL 3 STLMLC STLMLC [id number] [facility] 2024-02-10 00:00:00 2024-02-10 00:00:00 OFFICE VISIT ESTAB PT LEVEL 4 STLMLC STLMLC [id number] [facility] 2023-12-29 00:00:00 2023-12-29 00:00:00 (ESTPT) Establishe d Patient STLMLC STLMLC [id number] [facility] 2023-12-22 00:00:00 2023-12-22 00:00:00 OFFICE VISIT ESTAB PT LEVEL 3 STLMLC STLMLC [id number] [facility] 2023-12-14 00:00:00 2023-12-14 00:00:00 OFFICE VISIT ESTAB PT LEVEL 4 STLMLC STLMLC [id number] [facility] 2023-12-07 00:00:00 2023-12-07 00:00:00 (TEL) STLMLC STLMLC [id number] [facility] 2023-12-07 00:00:00 2023-12-07 00:00:00 OFFICE VISIT ESTAB PT LEVEL 3 STLMLC STLMLC [id number] [facility] 2023-11-15 00:00:00 2023-11-15 00:00:00 (NV) Nurse Visit STLMLC STLMLC [id number] [facility] 2023-11-08 00:00:00 2023-11-08 00:00:00 (TEL) STLMLC STLMLC [id number] [facility] 2023-10-28 00:00:00 2023-10-28 00:00:00 (NV) Nurse Visit STLMLC STLMLC [id number] [facility] 2023-10-27 00:00:00 2023-10-27 00:00:00 OFFICE VISIT ESTAB PT LEVEL 2 STLMLC STLMLC [id number] [facility] 2023-10-24 00:00:00 2023-10-24 00:00:00 OFFICE VISIT ESTAB PT LEVEL 2 STLMLC STLMLC [id number] [facility] 2023-09-29 00:00:00 2023-09-29 00:00:00 OFFICE VISIT ESTAB PT LEVEL 3 STLMLC STLMLC [id number] [facility] 2023-09-20 00:00:00 2023-09-20 00:00:00 (NV) Nurse Visit STLMLC STLMLC [id number] [facility] 2023-09-15 00:00:00 2023-09-15 00:00:00 (NV) Nurse Visit STLMLC STLMLC [id number] [facility] 2023-09-14 00:00:00 2023-09-14 00:00:00 (TEL) STLMLC STLMLC [id number] [facility] 2023-09-14 00:00:00 2023-09-14 00:00:00 OFFICE VISIT ESTAB PT LEVEL 4 STLMLC STLMLC [id number] [facility] 2023-09-14 00:00:00 2023-09-14 00:00:00 SUB ANNUAL [facility] WELLNESS VISIT STLMLC STLMLC [id number] [facility] 2023-09-12 00:00:00 2023-09-12 00:00:00 (NV) Nurse Visit STLMLC STLMLC [id number] [facility] 2023-09-09 13:15:00 2023-09-09 13:15:00 Outpatient MHIE MHIE [id number] Remberto Kline 2023-09-08 00:00:00 2023-09-08 00:00:00 OFFICE VISIT ESTAB PT LEVEL 4 STLMLC STLMLC [id number] [facility] 2023-09-07 00:00:00 2023-09-07 00:00:00 (TEL) STLMLC STLMLC [id number] [facility] 2023-09-01 00:00:00 2023-09-01 00:00:00 OFFICE VISIT ESTAB PT LEVEL 1 STLMLC STLMLC [id number] [facility] 2023-08-31 00:00:00 2023-08-31 00:00:00 OFFICE VISIT ESTAB PT LEVEL 3 STLMLC STLMLC [id number] [facility] 2023-08-24 00:00:00 2023-08-24 00:00:00 (TEL) STLMLC STLMLC [id number] [facility] 2023-08-19 00:00:00 2023-08-19 00:00:00 (TEL) STLMLC STLMLC [id number] [facility] 2023-08-16 00:00:00 2023-08-16 00:00:00 (NV) Nurse Visit STLMLC STLMLC [id number] [facility] 2023-08-12 00:00:00 2023-08-12 00:00:00 (TEL) STLMLC STLMLC [id number] [facility] 2023-08-03 00:00:00 2023-08-03 00:00:00 OFFICE VISIT ESTAB PT LEVEL 3 STLMLC STLMLC [id number] [facility] 2023-08-02 00:00:00 2023-08-02 00:00:00 OFFICE VISIT ESTAB PT LEVEL 3 STLMLC STLMLC [id number] [facility] 2023-08-02 00:00:00 2023-08-02 00:00:00 (TEL) STLMLC STLMLC [id number] [facility] 2023-08-01 00:00:00 2023-08-01 00:00:00 (TEL) STLMLC STLMLC [id number] [facility] 2023-08-01 00:00:00 2023-08-01 00:00:00 (NV) Nurse Visit STLMLC STLMLC [id number] [facility] 2023-08-01 00:00:00 2023-08-01 00:00:00 (TEL) STLMLC STLMLC [id number] [facility] 2023-08-01 00:00:00 2023-08-01 00:00:00 (IN/ASP) INJ ASP STLMLC STLMLC [id number] [facility] 2023-07-28 00:00:00 2023-07-28 00:00:00 (TEL) STLMLC STLMLC [id number] [facility] 2023-07-27 00:00:00 2023-07-27 00:00:00 OFFICE VISIT ESTAB PT LEVEL 4 STLMLC STLMLC [id number] [facility] 2023-07-27 00:00:00 2023-07-27 00:00:00 (TEL) STLMLC STLMLC [id number] [facility] 2023-07-25 00:00:00 2023-07-25 00:00:00 (IN/ASP) INJ ASP STLMLC STLMLC [id number] [facility] 2023-07-22 00:00:00 2023-07-22 00:00:00 (TEL) STLMLC STLMLC [id number] [facility] 2023-07-18 00:00:00 2023-07-18 00:00:00 (F/U) Follow Up Visit STLMLC STLMLC [id number] [facility] 2023-07-12 00:00:00 2023-07-12 00:00:00 (NV) Nurse Visit STLMLC STLMLC [id number] [facility] 2023-07-05 16:00:00 2023-07-05 16:00:00 Ambulatory Pre-Reg MHIE [facility] [place] [id number] Camronsangita gonsalves Jackson 2023-06-10 15:45:00 2023-06-11 04:59:59 Outpatient [facility] [place] [id number]23-[facility]-07 00:00:00 2023-06-07 00:00:00 (NV) Nurse Visit STLMLC STLMLC [id number] [facility] 2023-05-25 00:00:00 2023-05-25 00:00:00 (F/U) Follow Up Visit STLMLC STLMLC [id number] [facility] 2023-05-24 00:00:00 2023-05-24 00:00:00 (HOSP F/U) Hospital Follow Up STLMLC STLMLC [id number] [facility] 2023-05-20 00:00:00 2023-05-20 00:00:00 (TEL) STLMLC STLMLC [id number] [facility] 2023-05-16 00:00:00 2023-05-16 00:00:00 (TEL) STLMLC STLMLC [id number] [facility] 2023-05-16 00:00:00 2023-05-16 00:00:00 OFFICE VISIT ESTAB PT LEVEL 3 STLMLC STLMLC [id number] [facility] 2023-04-26 00:00:00 2023-04-26 00:00:00 (NV) Nurse Visit STLMLC STLMLC [id number] [facility] 2023-04-19 00:00:00 2023-04-19 00:00:00 (NV) Nurse Visit STLMLC STLMLC [id number] [facility] 2023-04-12 00:00:00 2023-04-12 00:00:00 (NV) Nurse Visit STLMLC STLMLC [id number] [facility] 2023-04-05 00:00:00 2023-04-05 00:00:00 (NV) Nurse Visit STLMLC STLMLC [id number] [facility] 2023-03-31 00:00:00 2023-03-31 00:00:00 OFFICE VISIT ESTAB PT LEVEL 2 STLMLC STLMLC [id number] [facility] 2023-03-29 00:00:00 2023-03-29 00:00:00 (NV) Nurse Visit STLMLC STLMLC [id number] [facility] 2023-03-24 00:00:00 2023-03-24 00:00:00 OFFICE VISIT ESTAB PT LEVEL 3 STLMLC STLMLC [id number] [facility] 2023-03-23 00:00:00 2023-03-23 00:00:00 (TEL) STLMLC STLMLC [id number] [facility] 2023-03-22 00:00:00 2023-03-22 00:00:00 (NV) Nurse Visit STLMLC STLMLC [id number] [facility] 2023-03-18 00:00:00 2023-03-18 00:00:00 (TEL) STLMLC STLMLC [id number] [facility] 2023-03-15 00:00:00 2023-03-15 00:00:00 OFFICE VISIT ESTAB PT LEVEL 4 STLMLC STLMLC [id number] [facility] 2023-03-15 00:00:00 2023-03-15 00:00:00 (NV) Nurse Visit STLMLC STLMLC [id number] [facility] 2023-03-10 00:00:00 2023-03-10 00:00:00 (NV) Nurse Visit STLMLC STLMLC [id number] [facility] 2023-03-01 00:00:00 2023-03-01 00:00:00 (NV) Nurse Visit STLMLC STLMLC [id number] [facility] 2023-02-23 00:00:00 2023-02-23 00:00:00 (NV) Nurse Visit STLMLC STLMLC [id number] [facility] 2023-02-15 00:00:00 2023-02-15 00:00:00 (NV) Nurse Visit STLMLC STLMLC [id number] [facility] 2023-02-10 00:00:00 2023-02-10 00:00:00 (TEL) STLMLC STLMLC [id number] [facility] 2023-02-08 00:00:00 2023-02-08 00:00:00 (NV) Nurse Visit STLMLC STLMLC [id number] [facility] 2023-02-04 15:00:00 2023-02-05 04:59:59 Outpatient MHIE [facility] [place] [id number] Remberto Kline 2023-02-01 00:00:00 2023-02-01 00:00:00 (NV) Nurse Visit STLMLC STLMLC [id number] [facility] 2022-12-23 00:00:00 2022-12-23 00:00:00 OFFICE VISIT ESTAB PT LEVEL 3 STLMLC STLMLC [id number] [facility] 2022-12-20 00:00:00 2022-12-20 00:00:00 (IN/ASP) INJ ASP STLMLC STLMLC [id number] [facility] 2022-12-09 16:45:00 2022-12-10 04:59:59 Outpatient [facility] [place] [id number] Remberto Kline 2022-12-10 00:00:00 2022-12-10 00:00:00 (IN/ASP) INJ ASP STLMLC STLMLC [id number] [facility] 2022-12-02 00:00:00 2022-12-02 00:00:00 (IN/ASP) INJ ASP STLMLC STLMLC [id number] [facility] 2022-11-29 00:00:00 2022-11-29 00:00:00 (TEL) STLMLC STLMLC [id number] [facility] 2022-11-09 00:00:00 2022-11-09 00:00:00 (TEL) STLMLC STLMLC [id number] [facility] 2022-11-04 00:00:00 2022-11-04 00:00:00 OFFICE VISIT ESTAB PT LEVEL 2 STLMLC STLMLC [id number] [facility] 2022-10-28 19:30:00 2022-10-29 05:59:59 Outpatient [facility] [place] [id number] Remberto Kline 2022-10-06 00:00:00 2022-10-06 00:00:00 OFFICE VISIT ESTAB PT LEVEL 3 STLMLC STLMLC [id number] [facility] 2022-10-04 00:00:00 2022-10-04 00:00:00 (TEL) STLMLC STLMLC [id number] [facility] 2022-10-04 00:00:00 2022-10-04 00:00:00 (TEL) STLMLC STLMLC [id number] [facility] 2022-09-15 00:00:00 2022-09-15 00:00:00 OFFICE VISIT ESTAB PT LEVEL 4 STLMLC STLMLC [id number] [facility] 2022-09-15 00:00:00 2022-09-15 00:00:00 SUB ANNUAL [facility] WELLNESS VISIT STLMLC STLMLC [id number] [facility] 2022-09-15 00:00:00 2022-09-15 00:00:00 (TEL) STLMLC STLMLC [id number] [facility] 2022-09-02 00:00:00 2022-09-02 00:00:00 (TEL) STLMLC STLMLC [id number] [facility] 2022-08-10 00:00:00 2022-08-10 00:00:00 (TEL) STLMLC STLMLC [id number] [facility] 2022-08-09 00:00:00 2022-08-09 00:00:00 NON-BILLAB LE VISIT STLMLC STLMLC [id number] [facility] 2022-07-14 00:00:00 2022-07-14 00:00:00 (TEL) STLMLC STLMLC [id number] [facility] 2022-07-14 00:00:00 2022-07-14 00:00:00 NON-BILLAB LE VISIT STLMLC STLMLC [id number] [facility] 2022-07-14 00:00:00 2022-07-14 00:00:00 (TEL) STLMLC STLMLC [id number] [facility] 2022-07-12 00:00:00 2022-07-12 00:00:00 (TEL) STLMLC STLMLC [id number] [facility] 2022-07-12 00:00:00 2022-07-12 00:00:00 NON-BILLAB LE VISIT STLMLC STLMLC [id number] [facility] 2022-07-02 00:00:00 2022-07-02 00:00:00 NON-BILLAB LE VISIT STLMLC STLMLC [id number] [facility] 2022-06-17 00:00:00 2022-06-17 00:00:00 (TEL) STLMLC STLMLC [id number] [facility] 2022-06-14 00:00:00 2022-06-14 00:00:00 OFFICE VISIT EST PT LEVEL 3 STLMLC STLMLC [id number] [facility] 2022-06-10 00:00:00 2022-06-10 00:00:00 OFFICE VISIT EST PT LEVEL 3 STLMLC STLMLC [id number] [facility] 2022-05-20 00:00:00 2022-05-20 00:00:00 (TEL) STLMLC STLMLC [id number] [facility] 2022-05-18 00:00:00 2022-05-18 00:00:00 (TEL) STLMLC STLMLC [id number] [facility] 2022-05-17 00:00:00 2022-05-17 00:00:00 OFFICE VISIT EST PT LEVEL 3 STLMLC STLMLC [id number] [facility] 2022-05-11 00:00:00 2022-05-11 00:00:00 (TEL) STLMLC STLMLC [id number] [facility] 2022 00:00:00 2022 00:00:00 (PROC) Procedure STLMLC STLMLC [id number] [facility] 2022-04-28 00:00:00 2022-04-28 00:00:00 OFFICE VISIT EST PT LEVEL 3 STLMLC STLMLC [id number] [facility] 2022-04-22 00:00:00 2022-04-22 00:00:00 (TEL) STLMLC STLMLC [id number] [facility] 2022-04-07 00:00:00 2022-04-07 00:00:00 OFFICE VISIT EST PT LEVEL 3 STLMLC STLMLC [id number] [facility] 2022-04-05 00:00:00 2022-04-05 00:00:00 (TEL) STLMLC STLMLC [id number] [facility] 2022-04-05 00:00:00 2022-04-05 00:00:00 OFFICE VISIT EST PT LEVEL 3 STLMLC STLMLC [id number] [facility] 2022-04-05 00:00:00 2022-04-05 00:00:00 (TEL) STLMLC STLMLC [id number] [facility] 2022-03-17 00:00:00 2022-03-17 00:00:00 OFFICE VISIT ESTAB PT LEVEL 2 STLMLC STLMLC [id number] [facility] 2022-03-10 00:00:00 2022-03-10 00:00:00 OFFICE VISIT ESTAB PT LEVEL 4 STLMLC STLMLC [id number] [facility] 2022-02-24 00:00:00 2022-02-24 00:00:00 (TEL) STLMLC STLMLC [id number] [facility] 2022-02-24 00:00:00 2022-02-24 00:00:00 (IN/ASP) INJ ASP STLMLC STLMLC [id number] [facility] 2022-02-15 00:00:00 2022-02-15 00:00:00 (IN/ASP) INJ ASP STLMLC STLMLC [id number] [facility] 2022-02-08 00:00:00 2022-02-08 00:00:00 OFFICE VISIT EST PT LEVEL 3 STLMLC STLMLC [id number] [facility] 2022-01-12 00:00:00 2022-01-12 00:00:00 (TEL) STLMLC STLMLC [id number] [facility] 2022-01-12 00:00:00 2022-01-12 00:00:00 (TEL) STLMLC STLMLC [id number] [facility] 2021-12-23 00:00:00 2021-12-23 00:00:00 (TEL) STLMLC STLMLC [id number] [facility] 2021-12-22 00:00:00 2021-12-22 00:00:00 OFFICE VISIT EST PT LEVEL 3 STLMLC STLMLC [id number] [facility] 2021-12-07 00:00:00 2021-12-07 00:00:00 (IN/ASP) INJ ASP STLMLC STLMLC [id number] [facility] 2021-11-19 00:00:00 2021-11-19 00:00:00 OFFICE VISIT EST PT LEVEL 3 STLMLC STLMLC [id number] [facility] 2021-11-17 00:00:00 2021-11-17 00:00:00 (TEL) STLMLC STLMLC [id number] [facility] 2021-11-13 00:00:00 2021-11-13 00:00:00 OFFICE VISIT EST PT LEVEL 3 STLMLC STLMLC [id number] [facility] 2021-09-21 00:00:00 2021-09-21 00:00:00 (TEL) STLMLC STLMLC [id number] [facility] 2021-09-15 00:00:00 2021-09-15 00:00:00 (TEL) STLMLC STLMLC [id number] [facility] 2021-09-15 00:00:00 2021-09-15 00:00:00 (INJ) Injection STLMLC STLMLC [id number] [facility] 2021-09-10 00:00:00 2021-09-10 00:00:00 OFFICE VISIT ESTAB PT LEVEL 4 STLMLC STLMLC [id number] [facility] 2021-09-10 00:00:00 2021-09-10 00:00:00 (TEL) STLMLC STLMLC [id number] [facility] 2021-09-10 00:00:00 2021-09-10 00:00:00 SUB ANNUAL [facility] WELLNESS VISIT STLMLC STLMLC [id number] [facility] 2021-09-04 00:00:00 2021-09-04 00:00:00 OFFICE VISIT ESTAB PT LEVEL 2 STLMLC STLMLC [id number] [facility] 2021-09-04 00:00:00 2021-09-04 00:00:00 (TEL) STLMLC STLMLC [id number] [facility] 2021-08-24 00:00:00 2021-08-24 00:00:00 (PROC) Procedure STLMLC STLMLC [id number] [facility] 2021-06-26 00:00:00 2021-06-26 00:00:00 OFFICE VISIT EST PT LEVEL 3 STLMLC STLMLC [id number] [facility] 2021-06-24 00:00:00 2021-06-24 00:00:00 (TEL) STLMLC STLMLC [id number] [facility] 2021-05-11 00:00:00 2021-05-11 00:00:00 Outpatient STLMLC STLMLC [id number] [facility] 2021-05-04 00:00:00 2021-05-04 00:00:00 Outpatient STLMLC STLMLC [id number] [facility] 2020-11-17 00:00:00 2020-11-17 00:00:00 Outpatient STLMLC STLMLC [id number] [facility] Results Test Description Test Time Test Comments Results Result Co mments Source LIPID PANEL WITH REFLEX DIRECT [id number] 00:00:00* Test Item Value Reference Range Interpretation Comme nts CALC LDL CHOL (test code = 82377-8) 135 MG/DL See_Comment H [Automated messa ge] The system which generated this result transmitted reference range: <100 MG/DL. The reference range was not used to interpret this result as normal/abnormal. CHOLESTEROL (test code = 2093-3) 217 MG/DL See_Comment H [Automated messa ge] The system which generated this result transmitted reference range: <200 MG/DL. The reference range was not used to interpret this result as normal/abnormal. HDL CHOLESTEROL (test code = 2085-9) 63 MG/DL See_Comment [Automated messa ge] The system which generated this result transmitted reference range: >39 MG/DL. The reference range was not used to interpret this result as normal/abnormal. RISK RATIO LDL/HDL (test code = 34633-9) 2.14 RATIO See_Comment [Automated message] The system which generated this result transmitted reference range: <3.55 RATIO. The reference range was not used to interpret this result as normal/abnormal. TRIGLYCERIDES (test code = 2571-8) 91 MG/DL See_Comment [Automated messa ge] The system which generated this result transmitted reference range: <150 MG/DL. The reference range was not used to interpret this result as normal/abnormal. STREP A [id number] 00:00:00ResultVITAMIN D, 25 [id number] 00:00:00* Test Item Value Reference Range Interpretation Comme nts VITAMIN D, 25 OH (test code = 1989-3) 50 NG/ML SEE BELOW NG/ML Chest Single ViewChest Single ViewPOC, COVID 19 Antigen + Flu by [facility], COVID 19 Antigen + Flu by [facility], COVID 19 Antigen + Flu by [facility]iaP[facility], COVID 19 Antigen + Flu by SofiaTib Fib RightTib Fib Right Notes Date/Time Note Provider Source Marshall Morales [facility]
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
[2024-12-18 18:48] VITALS: TEMP 97.1
[2024-12-18 18:50] VITALS: BP 147/78; O2SAT 98
== END 2024-12-17 17:23 | disposition home or self-care (01) ==
LOC: ER 14:04
DX: M54.2 Cervicalgia (principal); V49.40XA Driver injured in collision with unspecified motor vehicles in traffic accident, initial encounter
CPT/HCPCS: 72040; 99283